=== PATIENT | female | born 1970 | race Caucasian/White ===

== ENCOUNTER 2024-04-29 15:00 | Outpatient (OUT) | payer BC, SELFPAY ==
--- NOTE | 2024-04-26 11:45 | VEINCLINIC_ITS ---
Vital Signs 04/29/24 15:14 Height 5 ft 7 in Weight 81.647 kg BMI 28.2 BP 123/65 BP Location Right Brachial BP Position Supine BP Cuff Size Adult BP Source Manual Cuff Respiration 16 Pulse 74 Pulse Source Monitor Pulse Oximetry (%) 98 Oxygen Delivery Method Room Air Comment The patient's blood pressure is elevated. Varicose Veins Patient is a 53 year old female in this day with c/o bilateral leg itching and muscle cramping which awakes her sleep. Patient states she was seen by Dr. Beltran approximately 4 years ago but was unable to have procedures at that time, but did initiate bilateral leg knee high compression stockings. Symptoms include bulging, itching, aching veins. 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 Patient has family history of varicose vein disease in her mom. Patient denies history of blood clots. thigh: bilateral (symptoms right > left leg), knee: bilateral, calf: bilateral, ankle: bilateral and michael: bilateral aching, burning and cramping 8 2 years Worsened in recent months: Yes standing and heavy lifting analgesics, elevating extremities and compression stockings Reports muscle spasms of leg, bruising and limb pain History of lower extremity trauma: No Superficial thrombophlebitis: No Family history of varicose veins: yes Has patient had previous lower extremity venous surgery: No Patient has previously received the following treatment(s) for lower extremity varicose veins: Reports none Does patient have a history of : yes Does patient intend to have future pregnancies: no Has patient had lower extremity venous scan with relux testing: Yes Results: 4 years ago Support hose used: Yes Problems walking or doing physical activity: Yes How does it affect you: often has to rest and elevate due to pain Do you walk much: Yes Do you stand much: Yes Review of Systems ROS Status of ROS 10 or more systems reviewed and unremark able except as noted in history and below Integumentary/Breast Reports: itching and changes in skin color Neurological Reports: weakness in extremities [facility] Medical History (Updated 04/29/24 @ 15:27 by Bijan Juarez) Bone spur ?M77.9 - Enthesopathy, unspecified (ICD-10) Disruption of anterior cruciate ligament of left knee ?S83.512A - Sprain of anterior cruciate ligament of left knee, initial encounter (ICD-10) Varicose veins of bilateral lower extremities with pain ?I83.813 - Varicose veins of bilateral lower extremities with pain (ICD-10) Hypertension ?I10 - Essential (primary) hypertension (ICD-10) Migraine ?G43.909 - Migraine, unspecified, not intractable, without status migrainosus (ICD-10) Surgical History (Updated 04/29/24 @ 15:27 by Bijan Juarez) H/O sinus surgery ?Z98.890 - Other specified postprocedural states (ICD-10) S/P reconstruction of ACL of left knee using bone-patellar tendon-bone autograft ?Z98.890 - Other specified postprocedural states (ICD-10) Family History (Updated 04/29/24 @ 15:27 by Bijan Juarez) Other Family history of cancer Family history of hypertension Varicose veins of bilateral lower extremities with pain Social History (Updated 04/29/24 @ 15:27 by Bijan Juarez) Within the past year, how often did you have a drink containing alcohol: 2-4 times a month Smoking status: Never smoker Non-prescribed substance use: cannabis (any form) Meds Home Medications and Allergies Home Medications ?Medication ?Instructions ?Recorded ?Confirmed ?Type atogepant 60 mg tablet (Qulipta) 60 mg PO DAILY 04/29/24 04/29/24 History baclofen 15 mg tablet 15 mg PO DAILY 04/29/24 04/29/24 History lamotrigine 200 mg tablet 100 mg PO BID 04/29/24 04/29/24 History (Lamictal) losartan 25 mg tablet (Cozaar) 25 mg PO DAILY 04/29/24 04/29/24 History oxcarbazepine 300 mg tablet 300 mg PO BID 04/29/24 04/29/24 History (Trileptal) semaglutide 1 mg/dose (4 mg/3 mL) 0.25 mg subcut QWEEK 04/29/24 04/29/24 History subcutaneous pen injector (Ozempic) ubrogepant 50 mg tablet (Ubrelvy) mg 04/29/24 History Allergies Allergy/AdvReac Type Severity Reaction Status Date / Time acetaminophen [From Vicodin] Allergy Intermediate Rash Verified 04/29/24 16:02 hydrocodone [From Vicodin] Allergy Intermediate Rash Verified 04/29/24 16:02 Penicillins Allergy Intermediate Rash Verified 04/29/24 16:02 Exam Constitutional Documenting provider has reviewed patient's vital signs: yes Common normals: oriented x3 Cardio Peripheral pulses: posterior tibial pulses present and dorsalis pedis pulses present Extremity Common normals: normal capillary refill General: calf tenderness and edema Right lower extremity: lower leg Right lower leg: inspection and palpation Left lower extremity: lower leg Left lower leg: inspection and palpation Neuro Common normals: oriented x3 Assessment and Plan Assessment and Plan (1) Varicose veins of bilateral lower extremities with pain:
--- NOTE | 2024-04-26 11:46 | W.VEIN ---
Discharge Plan Discharge Disposition: Home, Self-Care Outpatient Diagnostics: [facility] Facility EST Comprehensive (Routine) Timeframe: 2 Weeks Facility: [facility] - Location: Vein Center Ordered By: Eugene Aj VC EXT Venous Reflux AMY LMTD (Routine) Timeframe: 2 Weeks Facility: [facility] - Location: Vein Center Ordered By: Eugene Aj Follow Up Appointments: 05/09/2024 Print Language: Slovak Discharge Date/Time: 04/29/24 16:04
[2024-04-29 15:14] VITALS: BP 123/65; PULSE 74; O2SAT 98; BMI 28.2
== END 2024-04-29 16:04 | disposition home or self-care (01) ==
LOC: VC 15:02
PROVIDERS: PCP Radiology Diagnostic Radiology; Visit Provider Radiology Diagnostic Radiology
DX: I83.813 Varicose veins of bilateral lower extremities with pain (principal)

== ENCOUNTER 2024-05-09 12:55 | Outpatient (OUT) | payer BC, SELFPAY ==
--- NOTE | 2024-05-09 13:00 | VEIN_ITS ---
Patient Name: LUIS MANUEL BYERS MR#: [id number] : 1970 Exam Date: 05/09/2024 Ordering Doctor: DR EUGENE AJ M.D. RADIOLOGY REPORT PROCEDURE: [facility] - OFFICE VISIT INITIAL COMPARISON: None. PROGRESS NOTES: 53-year-old female who presents with a long history of lower extremity pain swelling and varicose veins. The patient complains of moderate leg pain itching and muscle cramping which wakens her from sleeping. The patient rates the pain as a 8 on a scale of 1-10. The patient was previously seen by Dr. Ward 4 years ago and was recommended to wear compression stockings which she has worn over the past 4 years. The patient had no treatment at that time. The patient does work on her feet and walks approximately 7 hours per day. Patient has a family history of varicose veins. The patient denies any signs and symptoms to suggest arterial ischemia. The patient drinks 2-4 drinks per month. No smoking history. No illicit drug use. Past medical history is significant for sinus surgery and ACL reconstruction on the left. Past medical history significant for bone spur, hypertension and migraine headaches. No current prescription medications. No history of deep venous thrombus or pulmonary embolus. See separate history and physical for medication list. No prior treatment for varicose or spider veins. Nursing notes were reviewed. After history and physical exam I discussed at length the pathophysiology of venous hypertension and possible treatments, therapies and strategies available. We discussed at length the importance of elevating the lower extremities above the level of the heart, increased physical activity and compression stocking use. We discussed conservative treatment with compression stockings. We discussed surgical interventions including ligation stripping and phlebectomy. We discussed intravenous laser ablation, micro foam chemical ablation and injection sclerotherapy at length. Risks benefits and alternatives were discussed. The patient's questions were answered Ultrasound venous reflux study performed the same day was discussed at length with the patient. The report demonstrates severe bilateral great, mild right and severe left small saphenous vein venous insufficiency with associated saphenofemoral/saphenopopliteal junction reflux and dilatation. PHYSICAL EXAM: The right leg demonstrates multiple large varicosities along the thigh knee and lower leg. Moderate scattered reticular and spider veins. Hemosiderin staining below the knee. Mild subcutaneous edema. No active ulceration The left leg demonstrates a few scattered varicose, moderate reticular and spider veins. No hemosiderin staining or subcutaneous edema. Both thighs, legs and feet were symmetrically warm to the touch. Good posterior tibial and dorsalis pedis pulses were present bilaterally. VEIN/[facility] Facility EST Comprehensive IMPRESSION: 1. Bilateral great saphenous, mild right and severe left small saphenous vein venous insufficiency with dilatation and saphenofemoral/saphenous popliteal junction reflux 2. Moderate right and mild left lower extremity incompetent varicose veins 3. Mild right lower extremity subcutaneous edema 4. No definite flow significant arterial disease 5. CEAP: C4a, Ep, As, Pr PLAN: 1. Endovenous laser ablation of the right great saphenous vein followed by left great saphenous vein followed by right small saphenous vein followed by left small saphenous vein 2. Micro foam chemical ablation bilateral incompetent varicose veins 3. Injection sclerotherapy bilateral reticular and spider veins 4. Long-term use of bilateral 20-30 mm near thigh-high compression stockings were deep vein reflux 5. Continued leg elevation and physical activity for symptomatic relief Nurse notes, history and physical were reviewed and confirmed, see attached forms. The nurse was present throughout the physical exam and consultation Dictated by: Eugene Aj MD on 05/09/2024 at 15:55 Approved by: Eugene Aj MD on 05/09/2024 at 16:09
--- NOTE | 2024-05-09 13:00 | VEIN_ITS ---
Patient Name: LUIS MANUEL BEYRS MR#: [id number] : 1970 Exam Date: 05/09/2024 Ordering Doctor: DR EUGENE AJ M.D. RADIOLOGY REPORT PROCEDURE: VC EXT VENOUS REFLUX AMY LMTD COMPARISON: None. INDICATIONS: I83.813 - Varicose veins of bilateral lower extremities with pain TECHNIQUE: Duplex imaging of the lower extremity to assess the deep and superficial venous system for the presence of deep or superficial venous incompetence and to document the location and severity of disease. The study includes evaluation of the great saphenous vein (GSV), anterior accessory saphenous vein (AASV) and small saphenous vein (SSV). Patient scanned in reverse Trendelenburg and standing. FINDINGS: RIGHT LOWER EXTREMITY: Saphenofemoral Junction Reflux: Yes 9.6mm 4.5 sec GSV: Diam (mm) Reflux/ Time (sec) Proximal Thigh 11.6 Yes 4.9 Mid Thigh 9.1 Yes 1.2 Distal Thigh 8.7 Yes 3.0 Prox Calf 5.5 Yes 0.5 Mid Calf 2.7 Yes 1.9 Saphenopopliteal Junction Reflux: 5.9mm Yes 0.7 SSV: Proximal Calf 5.5 Yes 0.7 Mid Calf 6.4 Yes 2.0 AASV: Not present Thrombi: No acute or chronic thromus. Compressibility: Normal. Flow: Moderate deep venous reflux. Preforator: Mid medial calf 5.2 mm with 2.8s reflux. Mid medial lower leg measures 4.0 mm with 1.5s reflux. Mid medial lower leg 3.7 mm with 3.2s reflux. Tech Note: Incompetent varicose vein proximal medial lower leg measures 4.9 mm with 3.3s reflux. Varicose vein proximal medial lower leg measures 5.7 mm with 4.3s reflux. LEFT LOWER EXTREMITY: Saphenofemoral Junction Reflux: Yes 6.1 mm 4.2 sec GSV: Diam (mm) Reflux/Time (sec) Proximal Thigh 5.8 Yes 1.3 Mid Thigh 4.0 Yes 3.5 Distal Thigh 4.9 Yes 4.3 Prox Calf 3.3 Yes 0.5 Mid Calf 2.2 Yes 0.4 Saphenopopliteal Junction Relux: 5.6 mm Yes 4.6 SSV: Proximal Calf 5.7 Yes 4.6 Mid Calf 4.8 Yes 0.3 AASV: Proximal Thigh 2.6 Yes 0.2 Mid Thigh 2.1 No Distal Thigh Thrombi: No acute or chroinc thrombus. Compressibility: Normal. Flow: Mild deep venous reflux. Autocad: Dist medial lower leg 3.5 mm with 4.6s reflux. Mid medial lower leg 2.8 mm with 1.1s reflux. Tech Note: Incompetent varicose vein proximal medial lower leg measures 4.9 mm with 4.6s reflux. Varicose vein distal medial thigh measures 4.7 mm with 4.8s reflux. CONCLUSION: 1. Severe bilateral great saphenous vein venous insufficiency with dilatation and saphenofemoral junction reflux, right greater than left 2. Mild right and severe left small saphenous vein venous insufficiency with dilatation and saphenopopliteal junction reflux 3. Moderate right and mild left deep vein reflux 4. Bilateral incompetent varicose veins Dictated by: Eugene Aj MD on 05/09/2024 at 14:02 Approved by: Eugene Aj MD on 05/09/2024 at 14:04
--- OUTSIDE RECORDS SUMMARY | 2024-05-09 13:04 | XMS_ITS | CCD ---
Author Organization [facility] ion Partnership [facility] Care Team Providers Care Commercial Horticulture Instructor Name Role Phone Nataprawira, Mariana Unavailable Unavailable Nataprawira, Mariana Unavailable Unavailable Nataprawira, Mariana Unavailable Unavailable No, Physician Primary Care Provider UnavailRaleigh Randolph Primary Care Provider No, Physician Primary Care Provider UnavailNIKKI Olivares Attending Unavailable SHONNA, PHYSICIAN Primary Care Unavailable NIKKI PEREZ Attending Unavailable SHONNA, PHYSICIAN Primary Care Unavailable NIKKI PEREZ Attending Unavailable SHONNA, PHYSICIAN Primary Care Unavailable DR ALONDRA CLEMENT V Consulting Unavailable URBANO, DR ALONDRA Brink Attending Unavailable DR ALONDRA CLEMENT V Admitting Unavailable Randa Billy Primary Care Physician [phone] Sara Green Primary Care Physician Unallocated, [place] Provider Primary Care Provider Sara Green Attending Unavailable GEENA HANSEN Admitting Unavailable GEENA HANSEN Attending Unavailable GEENA HANSEN Referring Unavailable Sara Green Attending Unavailable Sara Green Referring Unavailable Sara Green Admitting Unavailable Sara Green Attending Unavailable Sara Green Admitting Unavailable Alex Pena Attending Unavailable Sara Green Attending Unavailable Sara Green Attending Unavailable Sara Green Attending Unavailable Sara Green Attending Unavailable Sara Green Attending Unavailable Sara Green Attending Unavailable Sara Green Attending Unavailable Sara Green Attending Unavailable MIGUEL CAI Attending Unavailable MIGUEL CAI Attending Unavailable GEENA HANSEN Attending Unavailable GEENA HANSEN Attending Unavailable Aron Echevarria Attending Unavailable Allergies Allergy Classification Reported Allergen(s) Allergy Type Date of Onset Reaction(s) Facility Acetaminophen / HYDROcodone (3 sources) Acetaminophen / HYDROcodone; Translations: [HYDROCODONE-ACET AMINOPHEN] Drug Allergy 9 migraines for 2 weeks [facility] Comment on above: Can take Vicodin ES but not regular vicodin Penicillins (antibiotic) (4 sources) Penicillins; Translations: [PENICILLINS] Drug Allergy 3 Rash, Hives [facility] (20 sources) Acetaminophen / HYDROcodone; Translations: [acetaminophen-hy drocodone] Drug Allergy 9 Headache [facility] Comment on above: Can take Vicodin ES but not regular vicodin Can take Vicodin ES but not regular vicodin (20 sources) Penicillins; Translations: [penicillins] Propensity to adverse reactions to drug 3 Hives, Rash [facility] (2 sources) Penicillin G Drug Allergy 3 [facility] (3 sources) Acetaminophen / HYDROcodone; Translations: [Vicodin] Drug Allergy [facility] Repository Medications Current Medications Medication Drug Class(es) Dates Sig (Normalized) Sig (Original) 0.5 ML semaglutide 0.5 MG/ML Auto-Injector [Wegovy] (1 source) Start: 04-12-2024 inject 0.25 mg by subcutaneous injection every week Wegovy (0.25 mg dose) subcutaneous solution 0.25 mg, SubCutaneous, qWeek, # 4 EA, Refills(s) 0, Pharmacy: [id number], 171.5, cm, 04/12/24 10:56:00 EDT, Height/Length Dosing, 83.9, kg, 04/12/24 10:56:00 EDT, Weight Dosing Start Date: 04/12/24 Status: Ordered acetaminophen 500 mg oral tablet (13 sources) Start: 01-26-2023 take 1 tablet by mouth every six hours Tylenol Extra Strength 500 mg oral tablet 500 mg = 1 tab(s), Oral, q6hr, Refills(s) 0 Start Date: 01/26/23 Status: Ordered baclofen 20 mg oral tablet (20 sources) gamma-Aminobutyr ic Acid-ergic Agonist Start: 11-01-2019 take 1 tablet by mouth three times daily baclofen 20 mg Tab 20 mg = 1 tab(s), Oral, TID, Refills(s) 0 Start Date: 11/01/19 Status: Ordered Start: 11-01-2019 take 0.5 tablet by m outh once daily in the morning, then take 1.5 tablets by mouth at bedtime baclofen 20 mg Tab See Instructions, 0.5 tab PO qAM and qAfternoon and 1.5 tabs at bedtime, Refills(s) 0 Start Date: 11/01/19 Status: Ordered take 2 tablets by mo uth in the morning, then take 2 tablets by mouth in the evening, then take 2 tablets by mouth at bedtime baclofen (Lioresal) 10 MG tablet Take 20 mg by mouth in the morning and 20 mg in the evening and 20 mg before bedtime. 0 Active benzonatate 200 mg oral capsule (1 source) Non-narcotic Antitussive Start: 05-17-2022 End: 05-31-2022 take 1 capsule by mouth three times daily benzonatate 200 mg oral capsule 200 mg = 1 cap(s), Oral, TID, X 14 day(s), # 42 cap(s), Refills(s) 0, Pharmacy: [facility], 170, cm, 05/17/22 16:44:00 EDT, Height/Length Dosing, 90.1, kg, 05/17/22 16:44:00 EDT, Weight Dosing Start Date: 05/17/22 Stop Date: 05/31/22 Status: Ordered betamethasone 0.001 mg/mg topical ointment (4 sources) Corticosteroid Start: 08-17-2023 betamethasone Top valerate 0.1% Oint 1 codie, Topical, BID, 45 gram, Refill(s) 0, cover with tegaderm/ telfa to affected area, [facility], 171.5, cm, 08/17/23 13:03:00 EST, Height/Length Dosing, 89.1, kg, 08/17/23 13:03:00 EST, Weight Dosing Start Date: 08/17/23 Status: Ordered 12 hr buPROPion hydrochloride 150 mg extended release oral tablet (8 sources) Aminoketone Start: 03-01-2024 take 1 tablet by mouth twice daily Wellbutrin SR 150 mg Tab-ER 150 mg = 1 tab(s), Oral, BID, # 60 tab(s), Refills(s) 1, Pharmacy: [facility], 171.5, cm, 03/01/24 15:06:00 EDT, Height/Length Dosing, 84.5, kg, 03/01/24 15:06:00 EDT, Weight Dosing Start Date: 03/01/24 Status: Ordered Start: 01-31-2024 take 1 tablet by diana th once daily Wellbutrin SR 150 mg Tab-ER 150 mg = 1 tab(s), Oral, Daily, # 30 tab(s), Refills(s) 0, Pharmacy: [facility], 171.5, cm, 01/31/24 11:29:00 EDT, Height/Length Dosing, 84.6, kg, 01/31/24 11:29:00 EDT, Weight Dosing Start Date: 01/31/24 Status: Ordered Start: 08-17-2023 Wellbutrin SR 150 mg Tab-ER 150 mg = 1 tab(s), Oral, BID, once a day x 1 month then increased, # 180 tab(s), Refills(s) 0, Pharmacy: [facility], 171.5, cm, 08/17/23 13:03:00 EST, Height/Length Dosing, 89.1, kg, 08/17/23 13:03:00 EST, Weight Dosing Start Date: 08/17/23 Status: Ordered take 1 tablet by diana every twelve hours in the morning buPROPion SR (Wellbutrin SR) 150 MG 12 hr tablet Take 150 mg by mouth in the morning and 150 mg before bedtime. Do not crush, chew, or split.. 0 Active busPIRone hydrochloride 10 mg oral tablet (20 sources) Start: 11-01-2021 take 1 mg by mouth once daily busPIRone 10 mg Tab mg tab(s), Oral, Daily Start Date: 11/01/21 Status: Ordered Calcium (4 sources) Phosphate Binder, Calcium Start: 01-31-2024 take 1 tablet by mouth once daily calcium (as carbonate) 500 mg oral tablet 1 tab, Oral, Daily, Refills(s) 0 Start Date: 01/31/24 Status: Ordered cephalexin 500 mg oral capsule (3 sources) Cephalosporin Antibacterial Start: 06-08-2022 take 1 capsule by mouth every twelve hours Keflex 500 mg Cap 500 mg = 1 cap(s), Oral, q12hr, # 20 cap(s), Refills(s) 0, Pharmacy: [facility], 170, cm, 06/08/22 11:55:00 EDT, Height/Length Dosing, 88.8, kg, 06/08/22 11:55:00 EDT, Weight Dosing Start Date: 06/08/22 Status: Ordered clindamycin 300 mg oral capsule (1 source) Lincosamide Antibacterial Start: 01-13-2023 End: 01-20-2023 take 1 capsule by mouth every six hours clindamycin 300 mg oral cap 300 mg = 1 cap(s), Oral, q6hr, X 7 day(s), # 28 cap(s), Refills(s) 0, Pharmacy: [facility], 170, cm, 01/04/23 11:46:00 EDT, Height/Length Dosing, 87.5, kg, 01/04/23 11:46:00 EDT, Weight Dosing Start Date: 01/13/23 Stop Date: 01/20/23 Status: Ordered codeine phosphate 2 mg/ml / guaiFENesin 20 mg/ml oral solution (3 sources) Opioid Agonist Start: 05-26-2022 take 10 mL by mouth every six hours for cough and congestion codeine-guaifene sin 10 mg-100 mg/5 mL oral syrup 10 mL, Oral, q6hr for cough and congestion, 120 mL, Refill(s) 0, [facility], 170, cm, 05/17/22 16:44:00 EDT, Height/Length Dosing, 90.1, kg, 05/17/22 16:44:00 EDT, Weight Dosing Start Date: 05/26/22 Status: Ordered diazePAM 2 mg oral tablet (3 sources) Benzodiazepine Start: 12-27-2018 take 1 tablet by mouth twice daily diazePAM (Valium) 2 MG tablet Take 2 mg by mouth Take half a tablet to one tablet twice daily . 0 12/27/2018 Active doxycycline hyclate 100 mg oral tablet (2 sources) Tetracycline-class Drug Start: 12-23-2021 End: 12-30-2021 take 1 tablet by mouth every twelve hours at mealtime doxycycline hyclate 100 mg Tab 100 mg = 1 tab(s), Oral, q12hr, with fluids may take with food to minimize abdominal discomfort, X 7 day(s), # 14 tab(s), Refills(s) 0, Pharmacy: [email or web address], 170, cm, 12/23/21 16:48:00 EDT, Height/Length Dosing, 88, kg, 12/23/21 16:48... Start Date: 12/23/21 Stop Date: 12/30/21 Status: Ordered Fish Oils (4 sources) Start: 01-31-2024 take 1 tablet by mouth once daily [place]-3 Fish Oil 1 tab, Oral, Daily, Refills(s) 0 Start Date: 01/31/24 Status: Ordered fluticasone propionate 0.05 mg/actuat metered dose nasal spray (15 sources) Corticosteroid Start: 01-04-2023 Flonase 0.05 mg/inh [place] 2 spray(s), Nasal, Daily, 16 gram, Refill(s) 0, each nostril, [facility], 170, cm, 01/04/23 11:46:00 EDT, Height/Length Dosing, 87.5, kg, 01/04/23 11:46:00 EDT, Weight Dosing Start Date: 01/04/23 Status: Ordered Start: 05-17-2022 take 1 spray(s) nasa l route twice daily fluticasone 0.05 mg/inh Nasal [place] 1 spray(s), Nasal, BID, 16 gram, Refill(s) 0, each nostril, [facility], 170, cm, 05/17/22 16:44:00 EDT, Height/Length Dosing, 90.1, kg, 05/17/22 16:44:00 EDT, Weight Dosing Start Date: 05/17/22 Status: Ordered Start: 09-22-2021 take 1 spray(s) nasa l route twice daily fluticasone 0.05 mg/inh Nasal [place] 1 spray(s), Nasal, BID, 16 gram, Refill(s) 0, each nostril, [email or web address], 170, cm, 09/22/21 11:38:00 EST, Height/Length Dosing, 87.3, kg, 09/22/21 11:38:00 EST, Weight Dosing Start Date: 09/22/21 Status: Ordered fluticasone 0.05 mg/inh Nasal [place] (5 sources) Start: 05-17-2022 take 1 spray(s) nasal route twice daily fluticasone 0.05 mg/inh Nasal [place] 1 spray(s), Nasal, BID, 16 gram, Refill(s) 0, each nostril, [email or web address], 170, cm, 05/17/22 16:44:00 EDT, Height/Length Dosing, 90.1, kg, 05/17/22 16:44:00 EDT, Weight Dosing Start Date: 05/17/22 Status: Ordered Start: 09-22-2021 take 1 spray(s) nasa l route twice daily fluticasone 0.05 mg/inh Nasal [place] 1 spray(s), Nasal, BID, 16 gram, Refill(s) 0, each nostril, [email or web address], 170, cm, 09/22/21 11:38:00 EST, Height/Length Dosing, 87.3, kg, 09/22/21 11:38:00 EST, Weight Dosing Start Date: 09/22/21 Status: Ordered hydrOXYzine hydrochloride 25 mg oral tablet (17 sources) Antihistamine Start: 03-23-2022 hydrOXYzine hydrochloride 25 mg Tab 25 mg = 1 tab(s), Oral, As Directed, Refills(s) 0 Start Date: 03/23/22 Status: Ordered lamoTRIgine 200 mg oral tablet (20 sources) Mood Stabilizer, Anti-epileptic Agent Start: 05-15-2020 End: 02-22-2021 take 2 tablets by mouth once daily lamotrigine 200 mg Tab 400 mg = 2 tab(s), Oral, Daily, # 180 tab(s), Refills(s) 0, Pharmacy: [facility], 170, cm, 03/19/20 13:46:00 EDT, Height/Length Dosing, 76.5, kg, 03/19/20 13:46:00 EDT, Weight Dosing Start Date: 05/15/20 Status: Ordered take 1 tablet by mouth once emily y lamoTRIgine (LaMICtal) 200 MG tablet Take 200 mg by mouth 1 (one) time each day at the same time. 0 Active losartan potassium 50 mg oral tablet (20 sources) Angiotensin 2 Receptor Rudy Start: 02-07-2024 take 1 tablet by mouth twice daily losartan 50 mg Tab 50 mg = 1 tab(s), Oral, BID, # 180 tab(s), Refills(s) 3, Pharmacy: [facility], 171.5, cm, 01/31/24 11:29:00 EDT, Height/Length Dosing, 84.6, kg, 01/31/24 11:29:00 EDT, Weight Dosing Start Date: 02/07/24 Status: Ordered Start: 10-06-2023 take 1 tablet by diana th twice daily losartan 50 mg Tab 50 mg = 1 tab(s), Oral, BID, # 180 tab(s), Refills(s) 0, Pharmacy: [facility], 171.5, cm, 08/31/23 13:49:00 EST, Height/Length Dosing, 86.3, kg, 08/31/23 13:49:00 EST, Weight Dosing Start Date: 10/06/23 Status: Ordered Start: 07-18-2023 take 1 tablet by diana th once daily losartan 25 mg Tab 25 mg = 1 tab(s), Oral, Daily, # 90 tab(s), Refills(s) 0, Pharmacy: [facility], 171.5, cm, 01/26/23 12:01:00 EDT, Height/Length Dosing, 86.8, kg, 01/26/23 12:01:00 EDT, Weight Dosing Start Date: 07/18/23 Status: Ordered Start: 03-05-2020 End: 03-18-2023 take 1 tablet by mouth once daily losartan 25 mg Tab 25 mg = 1 tab(s), Oral, Daily, # 90 tab(s), Refills(s) 3, Pharmacy: [facility], 170, cm, 05/17/22 16:44:00 EDT, Height/Length Dosing, 90.1, kg, 05/17/22 16:44:00 EDT, Weight Dosing Start Date: 06/01/22 Status: Ordered lurasidone hydrochloride 40 mg oral tablet (20 sources) Atypical Antipsychotic Start: 05-15-2020 End: 02-22-2021 take 1 tablet by mouth once daily at mealtime Latuda 40 mg oral tablet 40 mg = 1 tab(s), Oral, Daily, with food @ supper, # 90 tab(s), Refills(s) 1, Pharmacy: [facility], 170, cm, 03/19/20 13:46:00 EDT, Height/Length Dosing, 76.5, kg, 03/19/20 13:46:00 EDT, Weight Dosing Start Date: 05/15/20 Status: Ordered methylPREDNISolone 4 mg oral tablet (2 sources) Corticosteroid Start: 03-01-2024 End: 03-07-2024 Medrol 4 mg Tab = 1 packet(s), Oral, As Directed, as directed on package labeling, X 6 day(s), # 21 tab(s), Refills(s) 0, Pharmacy: [facility], 171.5, cm, 03/01/24 15:06:00 EDT, Height/Length Dosing, 84.5, kg, 03/01/24 15:06:00 EDT, Weight Dosing Start Date: 03/01/24 Stop Date: 03/07/24 Status: Ordered Start: 01-31-2024 End: 02-06-2024 Medrol 4 mg Tab = 1 packet(s ), Oral, As Directed, as directed on package labeling, X 6 day(s), # 21 tab(s), Refills(s) 0, Pharmacy: [facility], 171.5, cm, 01/31/24 11:29:00 EDT, Height/Length Dosing, 84.6, kg, 01/31/24 11:29:00 EDT, Weight Dosing Start Date: 01/31/24 Stop Date: 02/06/24 Status: Ordered Multi Vitamin+ (4 sources) Start: 01-31-2024 take 1 tablet by mouth once daily Multi Vitamin+ 1 tablet, Oral, Daily, Refill(s) 0 Start Date: 01/31/24 Status: Ordered Naltrexone (1 source) Opioid Antagonist Start: 01-31-2024 take 2 capsules by mouth once daily naltrexone 4.5 mg oral capsule = 2 cap(s), Oral, Daily, # 60 cap(s), Refills(s) 0, Pharmacy: [facility], 171.5, cm, 01/31/24 11:29:00 EDT, Height/Length Dosing, 84.6, kg, 01/31/24 11:29:00 EDT, Weight Dosing Start Date: 01/31/24 Status: Ordered naproxen 500 mg oral tablet (17 sources) Nonsteroidal Anti-inflammatory Drug Start: 01-31-2024 naproxen 500 mg Tab 500 mg = 1 tab(s), Oral, BID, take 14 days BID ., # 60 tab(s), Refills(s) 0, Pharmacy: [facility], 171.5, cm, 01/31/24 11:29:00 EDT, Height/Length Dosing, 84.6, kg, 01/31/24 11:29:00 EDT, Weight Dosing Start Date: 01/31/24 Status: Ordered Start: 01-26-2023 take 1 tablet by diana th every eight hours naproxen sodium 220 mg Tab 220 mg = 1 tab(s), Oral, q8hr, Refills(s) 0 Start Date: 01/26/23 Status: Ordered Start: 10-04-2021 take 1 tablet by diana th twice daily naproxen 500 mg Tab 500 mg = 1 tab(s), Oral, BID, Take one tab by mouth two times a day, # 14 tab(s), Refills(s) 0, Pharmacy: [facility], 170, cm, 09/22/21 11:38:00 EST, Height/Length Dosing, 82, kg, 10/04/21 11:38:00 EST, Weight Dosing Start Date: 10/04/21 Status: Ordered take 1 capsule by mo uth in the morning Naproxen Sodium 220 MG capsule Take 1 capsule by mouth in the morning. 0 Active ondansetron 4 mg oral tablet (1 source) Serotonin-3 Receptor Antagonist Start: 04-12-2024 take 1 tablet by mouth every six hours as needed for nausea Zofran 4 mg Tab 4 mg = 1 tab(s), Oral, q6hr, PRN Nausea, # 30 tab(s), Refills(s) 0, Pharmacy: [facility], 171.5, cm, 04/12/24 10:56:00 EDT, Height/Length Dosing, 83.9, kg, 04/12/24 10:56:00 EDT, Weight Dosing Start Date: 04/12/24 Status: Ordered OXcarbazepine 300 mg oral tablet (20 sources) Anti-epileptic Agent Start: 02-14-2020 OXcarbazepine (TrileptaL) 300 MG tablet Take 450 mg by mouth nightly . 0 02/14/2020 Active Start: 02-14-2020 take 1.5 tablets by mouth at bedtime Trileptal 300 mg Tab See Instructions, 1.5 tab(s) Oral Bedtime, Refills(s) 0 Start Date: 02/14/20 Status: Ordered take 1 tablet by diana th in the morning OXcarbazepine (Trileptal) 300 MG tablet Take 300 mg by mouth in the morning and 300 mg before bedtime. 0 Active predniSONE 10 mg oral tablet (3 sources) Start: 08-31-2023 predniSONE 10 mg Tab = 1 -, Oral, As Directed, Take 3 tabs by mouth daily x5 days, then 2 tabs daily x5 days, then 1 tab daily x5 days., # 30 tab(s), Refills(s) 0, Pharmacy: [facility], 171.5, cm, 08/31/23 13:49:00 EST, Height/Length Dosing, 86.3, kg, 08/31/23 13:49:00 EST, Weight Dosing Start Date: 08/31/23 Status: Ordered rimegepant 75 mg disintegrating oral tablet (12 sources) Start: 01-04-2023 Nurtec ODT 75 mg oral tablet, disintegrating Refills(s) 0 Start Date: 01/04/23 Status: Ordered Rimegepant Sulfate (NURTEC PO) (1 source) Rimegepant Sulfa te (NURTEC PO) Take by mouth 0 Active suvorexant 20 mg oral tablet (20 sources) Orexin Receptor Antagonist Start: 05-15-2020 End: 02-22-2021 take 1 tablet by mouth once daily at bedtime Belsomra 20 mg oral tablet 20 mg = 1 tab(s), Oral, Once a day (at bedtime), g47.0, # 90 tab(s), Refills(s) 1, Pharmacy: [facility] 170, cm, 03/19/20 13:46:00 EDT, Height/Length Dosing, 76.5, kg, 03/19/20 13:46:00 EDT, Weight Dosing Start Date: 05/15/20 Status: Ordered ubrogepant 50 mg oral tablet (9 sources) Start: 05-15-2020 Ubrelvy 50 mg oral tablet See Instructions, 1 tab(s) Oral, Refills(s) 0 Start Date: 05/15/20 Status: Ordered ubrogepant 50 mg Tab (2 sources) Start: 05-15-2020 ubrogepant 50 mg Tab 50 mg . 0 05/15/2020 Active Completed/Discontinued Medications Medication Drug Class(es) Dates Sig (Normalized) Sig (Original) ALPRAZolam 1 mg oral tablet (1 source) Benzodiazepine Start: 10-31-2012 End: 01-07-2013 take 1 tablet by mouth twice daily ALPRAZolam (XANAX) 1 mg tablet Take 1 tablet by mouth twice daily. 0 10/31/2012 01/07/2013 Discontinued (Discontinued by Patient) Comment on above: Take 1 tablet by diana th twice daily. LORazepam 1 mg oral tablet (1 source) Benzodiazepine Start: 10-31-2012 End: 01-07-2013 take 1 tablet by mouth every twenty-four hours as needed LORazepam (ATIVAN) 1 mg tablet Take 1 tablet by mouth at bedtime as needed. 0 10/31/2012 01/07/2013 Discontinued (Discontinued by Patient) Comment on above: Take 1 tablet by diana th at bedtime as needed. Medi compression stockings knee high 20-30mmHg compression (8 sources) Start: 09-22-2021 Medi compression stockings knee high 20-30mmHg compression Medi compression stockings knee high 20-30mmHg compression, See Instructions, 2 EA, 0, Wear bilat lower legs daily, Dx: I83.813, Supply Start Date: 09/22/21 Status: Ordered mirtazapine 15 mg oral tablet (1 source) Start: 12-19-2012 End: 02-27-2013 take 0.5 tablet by mouth once daily, then take 1 tablet by mouth once daily mirtazapine 15 mg tablet Take 1/2 tablet PO daily for two weeks, then increase to 1 tablet PO daily. 30 tablet 2 12/19/2012 02/27/2013 Discontinued Comment on above: Take 1/2 tablet PO d aily for two weeks, then increase to 1 tablet PO daily. 24 hr propranolol hydrochloride 60 mg extended release oral capsule (1 source) beta-Adrenergic Rudy Start: 10-31-2012 End: 10-11-2013 take 1 capsule by mouth once daily propranolol LA (INDERAL LA) 60 mg 24 hr capsule Take 1 capsule by mouth once daily. 0 10/31/2012 10/11/2013 Discontinued (Erroneous entry) Comment on above: Take 1 capsule by mo ut once daily. Problems Active Problems Problem Classification Problem Date Documented Date Episodic/Chronic Acquired foot deformities (20 sources) Acquired hallux rigidus; Translations: [Hallux rigidus, unspecified foot] Onset: 02-12-2023 Resolved: 02-12-2023 10-18-2013 Chronic Comment on above: RIGHT FOOT RIGHT FOOT Administrative/social admission (5 sources) Counseling procedure with explicit context; Translations: [Dietary counseling and surveillance] Onset: 08-17-2023 Episodic Allergic reactions (9 sources) Allergic disposition; Translations: [Other allergy, initial encounter] Onset: 08-17-2023 Episodic Anxiety disorders (20 sources) Anxiety; Translations: [Posttraumatic stress disorder] Onset: 07-28-2023 05-26-2014 Chronic Chronic obstructive pulmonary disease and bronchiectasis (7 sources) Bronchitis 08-31-2023 Episodic Disorders of lipid metabolism (2 sources) Hyperlipidemia; Translations: [Hyperlipidemia, unspecified] Onset: 04-12-2024 Chronic Essential hypertension (20 sources) Essential hypertension; Translations: [Essential (primary) hypertension] Onset: 11-01-2021 Chronic Headache; including migraine (20 sources) Migraine; Translations: [Migraine, unspecified, not intractable, without status migrainosus] Onset: 12-13-2012 12-13-2012 Chronic Malaise and fatigue (8 sources) Fatigue; Translations: [Other fatigue] Onset: 07-28-2023 01-17-2023 Episodic Miscellaneous mental health disorders (20 sources) Insomnia disorder related to another mental disorder; Translations: [Insomnia due to other mental disorder] Onset: 08-21-2020 08-21-2020 Chronic Mood disorders (20 sources) Mixed bipolar affective disorder, in full remission; Translations: [Bipolar disorder, in full remission, most recent episode mixed] Onset: 08-21-2020 08-21-2020 Chronic Nausea and vomiting (2 sources) Nausea; Translations: [Nausea] Onset: 04-12-2024 Episodic Other circulatory disease (20 sources) Raynaud's disease 05-26-2014 Chronic Other connective tissue disease (1 source) Pain of toe of left foot; Translations: [Pain in left toe(s)] 09-12-2023 Episodic Other connective tissue disease (2 sources) Disorder of soft tissue; Translations: [Other specified soft tissue disorders] Onset: 01-31-2024 Episodic Other connective tissue disease (1 source) Enthesopathy; Translations: [Other enthesopathies, not elsewhere classified] Onset: 03-01-2024 Episodic Other connective tissue disease (3 sources) Tendinitis of right elbow 03-01-2024 Episodic Other lower respiratory disease (20 sources) Dyspnea on exertion; Translations: [Shortness of breath] Onset: 07-28-2023 05-06-2021 Episodic Other nervous system disorders (2 sources) Paresthesia; Translations: [Paresthesia of skin] Onset: 01-31-2024 Episodic Other nervous system disorders (4 sources) Paresthesia of hand 01-31-2024 Episodic Other nutritional; endocrine; and metabolic disorders (7 sources) Obese class I; Translations: [Body mass index (BMI) 30.0-30.9, adult] Onset: 11-01-2021 Chronic Other nutritional; endocrine; and metabolic disorders (3 sources) Body mass index 30+ - obesity; Translations: [Body mass index (BMI) 30.0-30.9, adult] Onset: 07-28-2023 09-22-2021 Chronic Other nutritional; endocrine; and metabolic disorders (20 sources) Obesity; Translations: [Obesity, unspecified] Onset: 12-23-2021 09-22-2021 Chronic Other nutritional; endocrine; and metabolic disorders (2 sources) Obesity caused by energy imbalance; Translations: [Other obesity due to excess calories] Onset: 07-28-2023 07-28-2023 Chronic Other nutritional; endocrine; and metabolic disorders (20 sources) Body mass index 25-29 - overweight 09-17-2020 Episodic Other nutritional; endocrine; and metabolic disorders (14 sources) Overweight; Translations: [Overweight] Onset: 08-02-2023 09-17-2020 Episodic Other nutritional; endocrine; and metabolic disorders (20 sources) Overweight in adulthood with body mass index of 25 or more but less than 30; Translations: [Body mass index (BMI) 29.0-29.9, adult] Onset: 08-02-2023 09-17-2020 Episodic Other screening for suspected conditions (not mental disorders or infectious disease) (2 sources) Encounter for screening mammogram for malignant neoplasm of breast; Translations: [Screening for malignant neoplasm done] Onset: 03-23-2022 Episodic Other skin disorders (4 sources) Swelling of hand 01-31-2024 Episodic Other upper respiratory disease (14 sources) Seasonal allergy; Translations: [Other seasonal allergic rhinitis] Onset: 02-12-2023 01-17-2023 Chronic Other upper respiratory infections (15 sources) Sinusitis; Translations: [Chronic sinusitis] Onset: 12-23-2021 12-23-2021 Chronic Otitis media and related conditions (14 sources) Finding of fluid behind tympanic membrane; Translations: [Unspecified nonsuppurative otitis media, bilateral] Onset: 07-28-2023 01-17-2023 Episodic Residual codes; unclassified (5 sources) Patient encounter status; Translations: [Other specified health status] Onset: 11-01-2021 Episodic Residual codes; unclassified (20 sources) Initial insomnia 09-07-2019 Episodic Screening and history of mental health and substance abuse codes (3 sources) H/O: Disorder; Translations: [Personal history of nicotine dependence] Onset: 03-23-2022 Episodic Spondylosis; intervertebral disc disorders; other back problems (20 sources) Disorder of lumbar disc; Translations: [Other intervertebral disc degeneration, lumbar region] Onset: 02-12-2023 Resolved: 02-12-2023 06-18-2020 Chronic Spondylosis; intervertebral disc disorders; other back problems (9 sources) Low back pain; Translations: [Low back pain] Onset: 02-12-2023 Resolved: 02-12-2023 02-12-2023 Episodic Superficial injury; contusion (1 source) Contusion of left lesser toe; Translations: [Contusion of left lesser toe(s) without damage to nail, initial encounter] 09-12-2023 Episodic Thyroid disorders (20 sources) Central hypothyroidism; 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] Onset: 03-23-2022 09-07-2019 Chronic Unclassified (20 sources) Patient encounter status 09-17-2020 Varicose veins of lower extremity (20 sources) Varicose veins of lower extremity with inflammation 05-06-2021 Episodic Viral infection (2 sources) Verruca plantaris; Translations: [Plantar wart] 09-12-2023 Episodic Past or Other Problems Problem Classification Problem Date Documented Date Episodic/Chronic Conditions associated with dizziness or vertigo (3 sources) Dizziness; Translations: [Dizziness and giddiness] Onset: 11-08-2012 11-08-2012 Episodic Menstrual disorders (2 sources) Irregular periods; Translations: [Irregular menstruation, unspecified] Onset: 02-12-2023 Resolved: 02-12-2023 02-12-2023 Chronic Osteoarthritis (4 sources) Osteoarthritis of foot joint; Translations: [Primary osteoarthritis, unspecified ankle and foot] Onset: 02-12-2023 Resolved: 02-12-2023 02-12-2023 Chronic Other congenital anomalies (2 sources) Congenital deformity of toe; Translations: [Congenital deformity of feet, unspecified, unspecified foot] Onset: 02-12-2023 Resolved: 02-12-2023 02-12-2023 Chronic Other congenital anomalies (2 sources) Congenital valgus deformity of foot; 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] Onset: 02-12-2023 Resolved: 02-12-2023 02-12-2023 Chronic Other ear and sense organ disorders (7 sources) Pain of ear structure; Translations: [Otalgia, unspecified ear] Onset: 02-12-2023 01-17-2023 Episodic Sprains and strains (2 sources) Sprain of cruciate ligament of knee; Translations: [Sprain of unspecified cruciate ligament of unspecified knee, initial encounter] Onset: 02-12-2023 Resolved: 02-12-2023 02-12-2023 Episodic Syncope (3 sources) Near syncope; Translations: [Syncope and collapse] Onset: 11-08-2012 11-08-2012 Episodic Unclassified (20 sources) Body mass index 20-24 - normal 03-05-2020 Unclassified (20 sources) Strain of fascia of lower back 09-17-2020 Results Test Name Value Interpretation Reference Range Facility EMS Documentationon 04-27-20 EMS Documentation Report Please click on link to see report Normal [facility] Comment on above: Result Comment: Miss ing Attachment - total size limit for all attachments exceeded [id number] Can be viewed in source system CT Abdomen/Pelvis w/ Contras ton 04-23-2024 CT Abdomen/Pelvis w/ Contrast Exam Date/Time: 04/22/2024 20:30 EDT Reason for Exam: ABDOMINAL PAIN, ACUTE, NONLOCALIZED;Other (please specify) Report IMPRESSION: NO ACUTE FINDINGS. History: ABDOMINAL PAIN, ACUTE, NONLOCALIZED. Technical Factors: CT imaging of the abdomen and pelvis were obtained and formatted as 5 mm contiguous axial images from the domes of the diaphragm to the symphysis pubis. Sagittal and coronal reconstructions were also obtained. Oral contrast medium: None. Intravenous contrast medium: Isovue-300, 100 mL. Comparison: None Findings: Chest: Lung bases clear. Cardiac size normal. No pericardial effusion. No coronary artery calcification. Liver: Normal in size, and shape. Multiple cystic areas right and left hepatic lobes. Bile Ducts: Normal in caliber. Gallbladder: Not visualized. Pancreas: Normal without masses, cysts, ductal dilatation or calcification. Spleen: Normal in size without masses. 1.2 cm calcification superior aspect of spleen.. No splenules. Kidneys: Normal in size and enhancement. No hydronephrosis, masses, or stones. Adrenals: Normal. Small bowel: Normal in caliber. Appendix: Normal. Colon: Normal in caliber. Peritoneum: No ascites, free air, or fluid collections. Report Vessels: Aorta normal in course and caliber. Portal vein, splenic vein, superior mesenteric vein are patent. Lymph nodes: Retroperitoneal: No enlarged retroperitoneal lymph nodes. Mesenteric: No enlarged mesenteric lymph nodes. Pelvic: No enlarged pelvic lymph nodes. Ureters: Normal in course and caliber. No calcifications. Bladder: No wall thickening. Reproductive organs: No pelvic masses. Abdominal Wall: No hernia identified. No diastasis of rectus musculature. No edema or masses. Bones: No bone lesions. No degenerative changes. No post operative changes. All CT scans at this facility use dose modulation, iterative reconstruction, and/or weight based dosing when appropriate to reduce radiation dose to as low as reasonably achievable. Ordering Provider: Gayle Escalante FINAL REPORT Dictated: 04/23/2024 9:23 am Duane Vazquez MD Signed (Electronic Signature): 04/23/2024 9:23 am Signed by: Duane Vazquez MD Transcribed by: NOREEN Technologist: ERICK Technical Comments GFR (mL/min/1/73m2) 104 Contrast: Isovue 300 Contrast amount in ml's: 100 Rectal Contrast Given? No Normal [facility] ED Note-Physicianon 04-23-20 ED Note-Physician ED Note-Physician Basic Information Time Seen: Gayle Escalante PA-C 04/22/2024 18:58 Chief Complaint Pt arrived via [facility] after having an episode of abdominal pain. Since arrival pt states pain has subsided. Pt denies any nausea or vomiting. History of Present Illness This patient presents emergency department chief complaint of abdominal pain. She states this came on suddenly after eating a peanut butter and jelly sandwich. She states she thought the chili tasted funny, so she did not complete eating the entire sandwich. She did get nauseated but did not vomit. She denies any fevers chills or sweats. She denies any difficulty breathing or chest pain. She denies any pain currently. She denies any urine burning frequency or urgency. She denies any constipation or diarrhea. She has never had any abdominal surgeries. Review of Systems Constitutional: Denies weight loss, fevers, chills, sweats, malaise Eyes: Denies visual changes, eye pain, double vision, scotomas, floaters ENT: Denies runny nose, epistaxis, sinus pain, ear pain, ringing in ears, tooth ache, sore throat, pain with swallowing Cardiovascular: Denies chest pain, shortness of breath, orthopnea, edema, palpitations, loss of consciousness, claudication Respiratory: Denies cough, sputum production, wheezing, hemoptysis, shortness of breath, dyspnea on exertion Gastrointestinal: Denies unintentional weight loss, difficulty swallowing, indigestion, bloating, cramping, loss of appetite, vomiting, diarrhea, constipation, hematochezia, melena. + Genitourinary: Denies any incontinence of urine, dysuria, hematuria, nocturia, polyuria, hesitancy, frequency, urgency, burning Musculoskeletal: Denies joint pain, morning stiffness, joint swelling, decreased range of motion, crepitus Integumentary: Denies any pruritus, rashes, lesions, wounds, petechiae Neurologic: Denies any changes in sight, smell, hearing, taste, seizures, headache, paresthesia, numbness, weakness, balance disturbance Psychiatric denies any depression, change in sleep patterns, anxiety, difficulty concentrating, paranoia, anhedonia, lack of energy, bladimir Hematologic/lymphatic: Denies any purpura, petechiae, excessive bleeding, bruising Physical Exam Vitals & Measurements T: 36.9 ?C(Oral) HR: 70(Monitored) RR: 14 BP: 147/84 SpO2: 97% HT: 171.5 cm WT: 83.9 kg BMI: 28.53 Vital signs and nursing notes reviewed. General: Awake, alert, NAD. HEENT: Head is normocephalic, atraumatic. PERRL. EOMI. Sclerae are anicteric. External ears are normal. TMs are intact bilaterally. Canals are clear bilaterally. Nares are patent bilaterally. Oral mucosa is pink and moist. No lesions noted. Tongue protrudes in midline. Uvula rises with phonation. Neck is supple, no no palpable adenopathy. No JVD. Trachea is midline. Thorax: Symmetrical rise and fall Lungs: Clear to auscultation throughout all sanchez, no wheezes, no crackles Heart: Regular rate and rhythm. No murmur, gallop, or rub Abdomen: Mild diffuse tenderness on palpation epigastric area, left lower quadrant.. Bowel sounds are present active and normal. No organomegaly. No palpable masses. No CVA tenderness. Extremities: Motor sensory pulses intact x4 extremities. No lower extremity edema. Skin: No lesions, rashes, ulcerations. No bruising or petechiae. Color appropriate, warm and dry Neuro: No oriented x3, no focal neuro deficits Psych: Mood and affect are normal Medical Decision Making MEDICAL DECISION MAKING Number and Complexity of Problems Differential Diagnosis: Cholecystitis, appendicitis, pancreatitis, diverticulitis, dehydration, electrolyte imbalance, viral illness, food poisoning MDM Data External documents reviewed: Not applicable My EKG interpretation: Noted in chart if applicable My CT interpretation: Noted in chart if applicable My X-ray interpretation: Noted in chart if applicable My Ultrasound interpretation: Not applicable Decision rules/scores evaluated: Noted in chart if applicable Discussed with: Not applicable Treatment and Disposition ED Course: Patient was interviewed and examined. The appropriate ER workup was initiated. Patient is given IV fluid normal saline rehydration. White blood count 10.0, hemoglobin 13.2, hematocrit 37.2, platelets 237. Pro time 11.1, INR 0.99, PTT 30.7. Sodium 136, potassium 3.4, chloride 103, CO2 24, BUN 15, creatinine 0.7, glucose 118, calcium 9.9, alk phos mildly elevated at 103, remainder CMP unremarkable. Lipase mildly elevated at 187. Lactic acid normal at 1.6. 0-hour troponin 2.80, 1 hour delta Trope 2.70. UA remarkable for 2+ blood, 4-20 RBCs, urine beta-hCG negative. CT scan of the abdomen pelvis with contrast was unremarkable for any acute findings. I discussed the results of the workup with the patient. I discussed with her my recommendation to discard the jar of bismark. I discussed with her we will send her home with a ondansetron ODT in case she has nausea later tonight. I will also send a prescr (more content not included)... Normal [facility] Comment on above: Result Comment: Elec tronically Signed By: Gayle Escalante PA-C\.br\Date and Time Signed: 04/22/24 23:31 EDT\.br\Electronically Co-Signed By: Aron Echevarria DO.br\Date and Time Co-Signed: 04/23/24 00:00 EDT BMPon 04-22-2024 Anion gap [Moles/Vol] 12 mmol/L Normal 6-16 [facility] Comment on above: Performed By: #### 2 [id number] #### [facility] [address] [place] [address] Calcium [Mass/Vol] 9.9 mg/dL Normal 8.9-11.1 [facility] Comment on above: Performed By: #### 2 [id number] #### [facility] [address] [place] [address] Chloride [Moles/Vol] 103 mmol/L Normal 101-111 [facility] Comment on above: Performed By: #### 2 [id number] #### [facility] [address] [place] [address] CO2 [Moles/Vol] 24 mmol/L Normal 21-31 [facility] Comment on above: Performed By: #### 2 [id number] #### [facility] [address] [place] [address] Creatinine [Mass/Vol] 0.7 mg/dL Normal 0.5-1.3 [facility] Comment on above: Performed By: #### 2 [id number] #### [facility] [address] [place] [address] Glucose [Mass/Vol] 118 mg/dL Normal 55-199 [facility] Comment on above: Performed By: #### 2 [id number] #### [facility] [address] [place] [address] Potassium [Moles/Vol] 3.4 mmol/L Low 3.5-5.3 [facility] Comment on above: Performed By: #### 2 [id number] #### [facility] [address] [place] [address] Sodium [Moles/Vol] 136 mmol/L Normal 135-145 [facility] Comment on above: Performed By: #### 2 [id number] #### [facility] [address] [place] [address] Urea nitrogen [Mass/Vol] 15 mg/dL Normal 5-21 [facility] Comment on above: Performed By: #### 2 [id number] #### [facility] [address] [place] [address] Urea nitrogen/Creatinine [Mass ratio] 21 No Units High 10-20 [facility] Comment on above: Performed By: #### 2 [id number] #### [facility] [address] [place] [address] CBC w/ Auto Diffon 4 Basophils/100 WBC (Bld) 0.4 % Normal 0.0-2.0 [facility] Comment on above: Performed By: #### 2 [id number] #### [facility] [address] [place] [address] Basophils/Leukocytes Auto (Bld) [Pure # fraction] 0.0 E9/L Normal 0.0-0.2 [facility] Comment on above: Performed By: #### 2 [id number] #### [facility] [address] [place] [address] Eosinophils (Bld) [#/Vol] 0.1 E9/L Normal 0.0-0.5 [facility] Comment on above: Performed By: #### 2 [id number] #### [facility] [address] [place] [address] Eosinophils/100 WBC (Bld) 0.8 % Normal 0.0-8.0 [facility] Comment on above: Performed By: #### 2 [id number] #### [facility] [address] [place] [address] Erythrocyte distribution width (RBC) [Ratio] 13.0 % Normal 10.9-14.2 [facility] Comment on above: Performed By: #### 2 [id number] #### [facility] [address] [place] [address] Hematocrit (Bld) [Volume fraction] 37.2 % Normal 34.0-46.0 [facility] Comment on above: Performed By: #### 2 [id number] #### [facility] [address] [place] [address] Hemoglobin (Bld) [Mass/Vol] 13.2 g/dL Normal 12.0-16.0 [facility] Comment on above: Performed By: #### 2 [id number] #### [facility] [address] [place] [address] Lymphocytes (Bld) [#/Vol] 1.6 E9/L Normal 1.0-4.0 [facility] Comment on above: Performed By: #### 2 [id number] #### [facility] [address] [place] [address] Lymphocytes/100 WBC (Bld) 15.8 % Normal 14.0-50.0 [facility] Comment on above: Performed By: #### 2 [id number] #### [facility] [address] [place] [address] MCH (RBC) [Entitic mass] 33.2 pg Normal 27.0-34.0 [facility] Comment on above: Performed By: #### 2 [id number] #### [facility] [address] [place] [address] MCHC (RBC) [Mass/Vol] 35.6 g/dL Normal 31.4-36.0 [facility] Comment on above: Performed By: #### 2 [id number] #### [facility] [address] [place] [address] MCV (RBC) [Entitic vol] 93.3 fL Normal 80.0-100.0 [facility] Comment on above: Performed By: #### 2 [id number] #### [facility] [address] [place] [address] Monocytes (Bld) [#/Vol] 0.8 E9/L Normal 0.2-1.0 [facility] Comment on above: Performed By: #### 2 [id number] #### [facility] [address] [place] [address] Neutrophils (Bld) [#/Vol] 7.5 E9/L Normal 2.0-7.5 [facility] Comment on above: Performed By: #### 2 [id number] #### [facility] [address] [place] [address] Neutrophils/100 WBC (Bld) 74.8 % Normal 36.0-75.0 [facility] Comment on above: Performed By: #### 2 [id number] #### [facility] [address] [place] [address] Platelet mean volume (Bld) [Entitic vol] 7.3 fL Normal 6.4-10.8 [facility] Comment on above: Performed By: #### 2 135704 #### [facility] [address] [place] [address] Platelets (Bld) [#/Vol] 237.0 E9/L Normal 150.0-500.0 [facility] Comment on above: Performed By: #### 2 [id number] #### [facility] [address] [place] [address] RBC (Bld) [#/Vol] 4.0 E12/L Low 4.3-5.9 [facility] Comment on above: Performed By: #### 2 [id number] #### [facility] [address] [place] [address] WBC corrected for nucl RBC Auto (Bld) [#/Vol] 10.0 E9/L Normal 4.0-11.0 [facility] Comment on above: Performed By: #### 2 [id number] #### [facility] [address] [place], [place] [id number] ED Clinical Summaryon 2023 ED Clinical Summary ED Clinical Summary [address] [address] ED Clinical Summary Person Information Name: SAVANAH BYERS [facility] Age: 53 Years : 1970 Sex: Female Language: Canadian PCP: Sara Flood Marital Status: Visit Id: Visit Reason: Abdominal pain; RIB PAIN Speciality: Acuity: 3 Enc Type: Emergency Med Service: Emergency Arrival: 04/22/2024 18:34:34 Discharge: 04/22/2024 22:57:04 LOS: 000 04:23 Checkin: 04/22/2024 18:34:34 Checkout: 04/22/2024 22:57:04 Dispo Type: Home (Routine DC) EVENTS: Event Name Event Status Request Date/Time Start Date/Time Complete Date/Time Arrive Complete 04/22/2024 18:34:34 04/22/2024 18:34:34 04/22/2024 18:34:34 Document Home Meds Request 04/22/2024 18:34:34 Triage Complete 04/22/2024 18:34:34 04/22/2024 18:39:05 04/22/2024 18:39:05 Bed Assign Complete 04/22/2024 18:34:34 04/22/2024 18:34:34 04/22/2024 18:34:34 Dr Exam Complete 04/22/2024 18:34:34 04/22/2024 18:58:53 04/22/2024 18:58:53 RN Exam Complete 04/22/2024 18:34:34 04/22/2024 18:45:31 04/22/2024 18:45:31 Registration Complete 04/22/2024 18:58:53 04/22/2024 19:55:12 04/22/2024 19:55:12 Dr Exam Complete 04/22/2024 19:06:43 04/22/2024 19:06:43 04/22/2024 19:06:43 EKG Complete 04/22/2024 19:15:46 04/22/2024 20:41:16 CT Complete 04/22/2024 19:15:46 04/22/2024 20:16:50 04/22/2024 20:30:40 NPO Request 04/22/2024 19:15:46 Meds Admin Complete 04/22/2024 19:15:46 04/22/2024 19:56:31 Pending Labs Complete 04/22/2024 19:15:46 04/22/2024 22:02:44 Lab Complete 04/22/2024 19:15:46 04/22/2024 20:29:58 Patient Care Complete 04/22/2024 19:15:46 04/22/2024 22:54:47 Urine Collect Complete 04/22/2024 19:15:46 04/22/2024 19:49:47 Reg Complete Request 04/22/2024 19:55:12 Reg Bed Request Complete 04/22/2024 19:55:12 04/22/2024 19:55:12 04/22/2024 19:55:12 Pending Labs Complete 04/22/2024 20:03:22 04/22/2024 20:03:22 04/22/2024 20:29:34 Lab Complete 04/22/2024 20:03:22 04/22/2024 20:03:22 04/22/2024 20:29:34 Pending Labs Complete 04/22/2024 20:52:02 04/22/2024 20:52:02 04/22/2024 20:52:03 Pending Labs Complete 04/22/2024 20:52:50 04/22/2024 20:52:50 04/22/2024 20:52:50 Meds Admin Complete 04/22/2024 22:35:15 04/22/2024 22:54:12 Discharge Complete 04/22/2024 22:43:36 04/22/2024 22:57:09 04/22/2024 22:57:09 Transfer Complete 04/22/2024 22:57:09 04/22/2024 22:57:09 04/22/2024 22:57:09 ADDRESS: [address] [facility] [id number] PHYS DOC NOTES: MEDICAL INFORMATION: Prescriptions Given: Medications to Continue Taking That Have Changed [employer] [address], [address], [place] [id number], [phone] START: ondansetron (ondansetron 4 mg Dis Tab) 1 Tablets By Mouth every 6 hours as needed Nausea/Vomiting. Refills: 0. Other Medications START: ondansetron (Zofran 4 mg Tab) 1 Tablets By Mouth every 6 hours as needed Nausea. Refills: 0. Medications to Continue with No Changes Other Medications acetaminophen (Tylenol Extra Strength 500 mg oral tablet) 1 Tablets By Mouth every 6 hours. baclofen (baclofen 20 mg Tab) 1 Tablets By Mouth 3 times a day. busPIRone (busPIRone 10 mg Tab) By Mouth every day. calcium carbonate (calcium (as carbonate) 500 mg oral tablet) 1 tab By Mouth every day. fluticasone nasal (Flonase 0.05 mg/inh [place]) 2 Sprays Nasal Inhalation every day. each nostril. Refills: 0. hydrOXYzine (hydrOXYzine hydrochloride 25 mg Tab) 1 Tablets By Mouth As Directed. lamotrigine (lamotrigine 200 mg Tab) 2 Tablets By Mouth every day. Refills: 0. losartan (losartan 50 mg Tab) 1 Tablets By Mouth 2 times a day. Refills: 3. multivitamin (Multi Vitamin+) 1 tablet By Mouth every day. naproxen (naproxen 500 mg Tab) 1 Tablets By Mouth 2 times a day. take 14 days BID .. Refills: 0. omega-3 polyunsaturated fatty acids ([place]-3 Fish Oil) 1 tab By Mouth every day. oxcarbazepine (Trileptal 300 mg Tab) 1.5 tab(s) Oral Bedtime. rimegepant (Nurtec ODT 75 mg oral tablet, disintegrating) semaglutide (Wegovy (0.25 mg dose) subcutaneous solution) 0.25 Milligram Subcutaneous every week. Refills: 0. suvorexant (Belsomra 20 mg oral tablet) 1 Tablets By Mouth once a day (at bedtime). g47.0. Refills: 1. PATIENT EDUCATION INFORMATION: Instructions: Nausea, Adult, Gxzd-iu-Sdua; Abdominal Pain, Adult, Qwno-fe-Zxse Follow up: With: Address: When: Sara Green [address] [place] [address] A, [place] [address] Business (1) In 3 days 04/25/2024 DIAGNOSIS: 1:Nausea in adult; 2:Abdominal pain of unknown etiology Normal [facility] ED Patient Summaryon 024 ED Patient Summary ED Patient Summary [place] [id number] Patient Discharge Instructions Person Information Name: SAVANAH BYERS Age: 53 Years Arrival Date: 04/22/2024 18:34:34 Discharge Diagnosis: 1:Nausea in adult; 2:Abdominal pain of unknown etiology Primary Care Physician: Peter DAVISON, Sara Cueva Provider Information Primary Provider: Aron Echevarria DO [employer] Assistant:None The exam and treatment you received in the Emergency Department were for an urgent problem and are not intended as complete care. It is important that you follow up with a doctor, nurse practitioner, or physician?s assistant to the director for ongoing care. If your symptoms become worse or you do not improve as expected and you are unable to reach your usual health care provider, you should return to the Emergency Department. We are available 24 hours a day. SAVANAH BYERS has been given the following list of patient education materials, prescriptions and follow-up instructions: Follow-up Instructions: With: Address: When: Sara Green [address] [facility], [address], [place] [id number] Business (1) In 3 days 04/25/2024 In the event that this physician does not participate in your insurance network, please consult with your insurance company to find a nearby participating provider. Patient Education Materials: Nausea, Adult, Bnui-qs-Mpvm; Abdominal Pain, Adult, Iuws-mj-Hcig A MESSAGE TO ALL PATIENTS REGARDING OPIOIDS PRESCRIPTION OPIOIDS: WHAT YOU NEED TO KNOW Prescription opioids can be used to help relieve gigkrzqq-ir-aggifq pain and are often prescribed following a surgery or injury, or for certain health conditions. These medications can be an important part of the treatment but also come with serious risks. It is important to work with your healthcare provider to make sure you are getting the safest, most effective care. WHAT ARE THE RISKS AND SIDE EFFECTS OF OPIOID USE? Prescription opioids carry serious risks of addiction and overdose, especially with prolonged use. An opioid overdose, often marked by slowed breathing, can cause sudden . The use of prescription opioids can have a number of side effects as well, even when taken as directed: ? Tolerance?meaning you might need to take more of the medication for the same pain relief ? Physical dependence?meaning you have symptoms of withdrawal when a medication is stopped ? Increased sensitivity to pain ? Constipation ? Nausea, vomiting, and dry mouth ? Sleepiness and dizziness ? Confusion ? Depression ? Low levels of testosterone that can result in lower sex drive, energy, and strength ? Itching and sweating RISKS ARE GREATER WITH: ? History of drug misuse, substance use disorder, or overdose ? Mental health conditions (such as depression or anxiety) ? Sleep apnea ? Older age (65 years and older) ? Avoid alcohol while taking prescription opioids. Also, unless specifically advised by your health care provider, medications to avoid include: ? Benzodiazepines (such as Xanax or Valium) ? Muscle relaxants (such as Soma or Flexeril) ? Hypnotics (such as Ambien or Lunesta) ? Other prescription opioids KNOW YOUR OPTIONS Talk to your health care provider about ways to manage your pain that don?t involve prescription opioids. Some of these options may actually work better and have fewer risks and side effects. Options may include: ? Pain relievers such as acetaminophen, ibuprofen, and naproxen ? Some medication that are also used for depression or seizures ? Physical therapy and exercise ? Cognitive behavioral therapy, a psychological, goal-directed approach, in which patients learn how to modify physical, behavioral, and emotional triggers of pain and stress. IF YOU ARE PRESCRIBED OPIOIDS FOR PAIN: ? Never take opioids in greater amounts or more often than prescribed. ? Follow up with your primary health care provider. o Work together to create a plan on how to manage your pain. o Talk about ways to help manage your pain that don?t involve prescription opioids. o Talk about any and all concerns and side effects. ? Help prevent misuse and abuse o Never sell or share prescription opioids. o Never use another person?s prescription opioids. ? Store prescription opioids in a secure place and out of reach of others (this may include visitors, children, friends, and family). ? Safely dispose of unused prescription opioids: Find your community drug take-back program or your pharmacy mail-back program, or flush them down the toilet, following guidance from the Food and Drug Administration (www.fda.gov/Drugs/Res ourcesForYou). ? Visit www.cdc.gov/drugoverdo se to learn about the risks of opioids abuse and overdose. ? If you believe you may be struggling with addiction, tell your health care (more content not included)... Normal [facility] Hep Func Panelon 04-22-2024 Albumin [Mass/Vol] 4.7 g/dL Normal 3.3-5.0 [facility] Comment on above: Performed By: #### 2 [id number] #### [facility] [address] [place] [address] Albumin/Globulin (S) [Mass conc ratio] 1.7 Normal 1.1-2.2 [facility] Comment on above: Performed By: #### 2 [id number] #### [facility] [address] [place] [address] ALP [Catalytic activity/Vol] 103 Int._Unit/L High 21-98 [facility] Comment on above: Performed By: #### 2 [id number] #### [facility] [address] [place] [address] ALT No additional P-5'-P [Catalytic activity/Vol] 34 Int._Unit/L Normal 6-46 [facility] Comment on above: Performed By: #### 2 [id number] #### [facility] [address] [place] [address] AST [Catalytic activity/Vol] 38 Int._Unit/L Normal 5-43 [facility] Comment on above: Performed By: #### 2 [id number] #### [facility] [address] [place] [address] Bilirubin [Mass/Vol] 0.5 mg/dL Normal 0.0-1.1 [facility] Comment on above: Performed By: #### 2 [id number] #### [facility] [address] [place] [address] Bilirubin.direct [Mass/Vol] 0.1 mg/dL Normal 0.0-0.4 [facility] Comment on above: Performed By: #### 2 [id number] #### [facility] [address] [place] [address] Bilirubin.indirect [Mass or moles/Vol] 0.4 mg/dL Normal 0.1-0.9 [facility] Comment on above: Performed By: #### 2 [id number] #### [facility] [address] [place] [address] Globulin (S) [Mass/Vol] 2.8 g/dL Normal 1.4-4.0 [facility] Comment on above: Performed By: #### 2 [id number] #### [facility] [address] [place] [address] Protein [Mass/Vol] 7.5 g/dL Normal 6.0-7.8 [facility] Comment on above: Performed By: #### 2 [id number] #### [facility] [address] [place] [address] Lactic Acidon 04-22-2024 Lactic Acid Lvl 1.6 mmol/L Normal 0.5-2.2 [facility] Comment on above: Performed By: #### 2 [id number] #### [facility] [address] [place] [address] Lipase Levelon 04-22-2024 Lipase [Catalytic activity/Vol] 187 U/L High 13-58 [facility] Comment on above: Performed By: #### 2 [id number] #### [facility] [address] [place] [address] PT & PTTon 04-22-2024 aPTT Coag (PPP) [Time] 30.7 second(s) Normal 25.1-36.5 [facility] Comment on above: Result Comment: Para meter 15 days - 4 weeks 1 - 5 months 6 - 11 months 1 - 5 years 6 - 10 years 11 - 17 years PTT Mean: 35.4 (27.6-45.6) Mean: 33.5 (24.8-40.7) Mean: 32.4 (25.1-40.7) Mean: 31.6 (24.0-39.2) Mean: 31.6 (26.9-38.7) Mean: 31.0 (24.6-38.4) Pediatric Reference ranges were obtained from a study by Lazarus Whalen et al. prepared from 1437 samples obtained at 7 different centers using the same coagulation reagent and instrumentation [place] [facility] [place] Currently there are no coagulation studies available worldwide for children to 14 days, and no normal ranges. Heparin therapeutic range (represented by Anti-Factor Xa activity of 0.2 - 0.4 U/mL) corresponds to PTT of 56.6 - 109.0 sec. Performed By: #### 1 [id number] #### [facility] [address] [place] [address] INR Coag (PPP) [Relative time] 0.99 {INR} Invalid Interpretation Code [facility] Comment on above: Result Comment: INR results are specifically intended to assess patients stabilized on long-term Anticoagulation therapy suggested INR?s ?Less Intensive Anticoagulation? 2.0 ? 3.0 Conventional Range 3.0 ? 4.5 Performed By: #### 1 [id number] #### [facility] [address] [place] [address] PT Coag (PPP) [Time] 11.1 second(s) Normal 9.4-12.5 [facility] Comment on above: Result Comment: 15 d ays - 4 weeks 1 - 5 months 6 -11 months 1- 5 years 6-10 years 11 -17 years Mean: 11.2 (9.5-12.6) Mean: 11.0 (9.7-12.8) Mean: 11.0 (9.8-13.0) Mean: 11.3 (9.9-13.4) Mean: 11.7 (10.0-14.6) Mean: 11.8 (10.0 - 14.1) Pediatric Reference ranges were obtained from a study by Lazarus Whalen et al. prepared from 1437 samples obtained at 7 different centers using the same coagulation reagent and instrumentation [place] [facility] [place] Currently there are no coagulation studies available worldwide for children to 14 days, and no normal ranges. Performed By: #### 1 [id number] #### [facility] [address] [place] [address] Pre-Arrival Noteon Pre-Arrival Note Pre-Arrival Note Pre-Arrival Summary [facility]: , [facility] Current Date: 04/22/2024 18:35:11 EDT Gender: Female Date of : Age: 53 Pre-Arrival Type: EMS ETA: 04/22/2024 18:56:00 EDT Primary Care Physician: Presenting Problem: Pre-Arrival User: Deneen Dumont RN Referring Source: Location: [place] Completion Date/Time: 04/22/2024 18:26:00 [facility] Emergency Department Pre-Hospital Report Form Vital Signs: Pre-Hospital Report: Treatment in Route: Response to Treatment: Misc. Issues: Normal [facility] Troponin 0 Hr.on 04-22-2024 Troponin HS 2.80 pg/mL Low 10.10-27.10 [facility] Comment on above: Result Comment: The 95% CI (Confidence Interval) PPV (Positive Predictive Value) for myocardial infarction in females is 38 pg/mL, in males 51 pg/mL. The results should be used in conjunction with clinical conditions of myocardial infarction. (Access High Sensitivity Troponin I Instructions For Use, Apollidon, March 2018) Performed By: #### 1 [id number] #### [facility] [address] [place] [address] Troponin 1 Hr.on 04-22-2024 Troponin HS 2.70 pg/mL Low 10.10-27.10 [facility] Comment on above: Order Comment: Due a t 21:00 Result Comment: The 95% CI (Confidence Interval) PPV (Positive Predictive Value) for myocardial infarction in females is 38 pg/mL, in males 51 pg/mL. The results should be used in conjunction with clinical conditions of myocardial infarction. (Revivio High Sensitivity Troponin I Instructions For Use, Apollidon, March 2018) Performed By: #### 1 [id number] #### [facility] [address] [place] [address] U BetaHcg Qualon 04-22-2024 HCG.beta subunit (U) [Moles/Vol] Negative Normal [facility] Comment on above: Performed By: #### 2 [id number] #### [facility] [address] [place] [address] UA with Cult Rflxon 04-22-20 24 Bilirubin Ql (U) Negative Normal Negative [facility] Comment on above: Performed By: #### 4 [id number] #### [facility] [address] [place] [address] Clarity (U) Clear Normal Clear [facility] Comment on above: Performed By: #### 4 [id number] #### [facility] [address] [place] [address] Color (U) Light-Yellow Normal Yellow [facility] Comment on above: Result Comment: Micr oscopic readings are only performed on those samples that meet specific criteria set forth by [facility]. Performed By: #### 4 [id number] #### [facility] [address] [place] [address] Epithelial cells.squamous Auto (Urine sed) [#/Area] 0-2 Invalid Interpretation Code [facility] Comment on above: Performed By: #### 4 [id number] #### [facility] [address] [place] [address] Glucose Ql (U) Negative Normal Negative [facility] Comment on above: Performed By: #### 4 [id number] #### [facility] [address] [place] [address] Hemoglobin Auto test strip (U) [Mass/Vol] 2+ mg/dL Abnormal Negative [facility] Comment on above: Performed By: #### 4 [id number] #### [facility] [address] [place] [address] Ketones Auto test strip Ql (U) Negative Normal Negative [facility] Comment on above: Performed By: #### 4 [id number] #### [facility] [address] [place] [address] Leukocyte esterase Auto test strip Ql (U) Negative Normal Negative [facility] Comment on above: Performed By: #### 4 [id number] #### [facility] [address] [place] [address] Mucus Auto Ql (U) Trace Normal Negative [facility] Comment on above: Performed By: #### 4 [id number] #### [facility] [address] [place] [address] Nitrite Auto test strip Ql (U) Negative Normal Negative [facility] Comment on above: Performed By: #### 4 [id number] #### [facility] [address] [place] [address] pH (U) 6.0 [pH] Invalid Interpretation Code 5.0-9.0 [facility] Comment on above: Performed By: #### 4 [id number] #### [facility] [address] [place] [address] Protein Ql (U) Negative Normal Negative [facility] Comment on above: Performed By: #### 4 [id number] #### [facility] [address] [place] [address] RBC Ql (U) 4-20 Abnormal 0-3 [facility] Comment on above: Performed By: #### 4 [id number] #### [facility] [address] [place], [place] [address] Specific gravity (U) [Rel density] 1.014 Invalid Interpretation Code 1.005-1.030 [facility] Comment on above: Performed By: #### 4 [id number] #### [facility] [address] [place], [place] [address] Urobilinogen (U) [Mass/Vol] Negative Normal Negative [facility] Comment on above: Performed By: #### 4 [id number] #### [facility] [address] [place], [place] [address] WBC Auto (Urine sed) [#/Area] 0-5 Normal 0-5 [facility] Comment on above: Performed By: #### 4 [id number] #### [facility] [address] [place] [address] Type of Urine collection method Clean Catch Normal [facility] Comment on above: Performed By: #### 4 [id number] #### [facility] [address] [place] [address] eGFRon 04-22-2024 eGFR 104 mL/min/1.73 m2 Normal >=59 [facility] Comment on above: Order Comment: Order added by Discern Expert. Performed By: #### 1 [id number] #### [facility] [address] [place] [address] Ambulatory Visit Summaryon 0 04-12-2024 Ambulatory Visit Summary Ambulatory Visit Summary SAVANAH BYERS :1970 Visit Date:04/12/2024 Ambulatory Visit Instructions Your Diagnosis Bipolar I disorder, mild, current or most recent episode depressed, in full remission, with anxious distress Encounter for weight loss counseling Hypertension HLD (hyperlipidemia) Overweight Nausea BMI 28.0-28.9,adult Your Care Team Attending Physician - Sara Flood Primary Care Physician - Sara Flood This Is Your Medications List ondansetron (Zofran 4 mg Tab) semaglutide (Wegovy (0.25 mg dose) subcutaneous solution) Contact prescribing physician if questions or concerns acetaminophen (Tylenol Extra Strength 500 mg oral tablet) baclofen (baclofen 20 mg Tab) busPIRone (busPIRone 10 mg Tab) calcium carbonate (calcium (as carbonate) 500 mg oral tablet) fluticasone nasal (Flonase 0.05 mg/inh [place]) hydrOXYzine (hydrOXYzine hydrochloride 25 mg Tab) lamotrigine (lamotrigine 200 mg Tab) losartan (losartan 50 mg Tab) multivitamin (Multi Vitamin+) naproxen (naproxen 500 mg Tab) omega-3 polyunsaturated fatty acids ([place]-3 Fish Oil) oxcarbazepine (Trileptal 300 mg Tab) rimegepant (Nurtec ODT 75 mg oral tablet, disintegrating) suvorexant (Belsomra 20 mg oral tablet) [Image Removed: STOP]Stop taking these medications buPROPion (Wellbutrin SR 150 mg Tab-ER) Procedures Performed Colonoscopy (08/07/2015), left knee arthroscopy with anterior cruciate ligament reconstruction using bone, patellar tendon, bone allograft (10/06/2014), ACL (anterior cruciate ligament) rupture...., Arthroscopy and biopsy of knee, Injection of nerve root of lumbar spine using fluoroscopic guidance, right great toe surgery, sinus surgery. Discharge Vitals Heart Rate (Peripheral) 75 Blood Pressure 138/86 Height 171 cm Weight 184.58 lb Weight 83.9 kg BMI 28.53 What to do next Scheduled Follow-Up Appointments Monday 2:00 PM EDT Where: [facility] You Need to Schedule the Following Appointments Follow Up with Peter DAVISON, ANGY Mejia, MED When: In 1 month Comments: weight loss Where: [address], [address] [address]- Medications What How Much When Why Instructions New ondansetron (Zofran 4 mg Tab) 1 Tablets By Mouth Every 6 hours as needed for Nausea Nausea Pickup at [email or web address] [address] New semaglutide (Wegovy (0.25 mg dose) subcutaneous solution) 0.25 Milligram Subcutaneous Every week Hypertension HLD (hyperlipidemia) BMI 28.0-28.9,adult Overweight Encounter for weight loss counseling Pickup at [facility] [address] Unchanged acetaminophen (Tylenol Extra Strength 500 mg oral tablet) 1 Tablets By Mouth Every 6 hours Contact prescribing physician if questions or concerns Unchanged baclofen (baclofen 20 mg Tab) 1 Tablets By Mouth 3 times a day Contact prescribing physician if questions or concerns Unchanged busPIRone (busPIRone 10 mg Tab) By Mouth Every day Contact prescribing physician if questions or concerns Unchanged calcium carbonate (calcium (as carbonate) 500 mg oral tablet) 1 tab By Mouth Every day Contact prescribing physician if questions or concerns Unchanged fluticasone nasal (Flonase 0.05 mg/ inh [place]) 2 Sprays Nasal Inhalation Every day Left otitis media Fluid level behind tympanic membrane of both ears BMI 30.0-30.9,adult each nostril Contact prescribing physician if questions or concerns Unchanged hydrOXYzine (hydrOXYzine hydrochloride 25 mg Tab) 1 Tablets By Mouth As Directed Contact prescribing physician if questions or concerns Unchanged lamotrigine (lamotrigine 200 mg Tab) 2 Tablets By Mouth Every day Contact prescribing physician if questions or concerns Unchanged losartan (losartan 50 mg Tab) 1 Tablets By Mouth 2 times a day Contact prescribing physician if questions or concerns Unchanged multivitamin (Multi Vitamin+) 1 tablet By Mouth Every day Contact prescribing physician if questions or concerns Unchanged naproxen (naproxen 500 mg Tab) 1 Tablets By Mouth 2 times a day Cervical spine pain Overweight Adult BMI 28.0-28.9 kg/sq m take 14 days BID . Contact prescribing physician if questions or concerns Unchanged omega-3 polyunsaturated fatty acids ([place]-3 Fish Oil) 1 tab By Mouth Every day Contact prescribing physician if questions or concerns Unchanged oxcarbazepine (Trileptal 300 mg Tab) See instructions 1.5 tab(s) Oral Bedtime Contact prescribing physician if questions or concerns Unchanged rimegepant (Nurtec ODT 75 mg oral tablet, disintegrating) Contact prescribing physician if questions or concerns Unchanged suvorexant (Belsomra 20 mg oral tablet) 1 Tablets By Mouth Once a day (at bedtime) g47.0 Contact prescribing physician if questions or concerns Pharmacy Information [facility] [address]: [address] [place], [place] [id number] [phone] What How Much When Why Comments Stop Taking b (more content not included)... Normal [facility] Family Medicine Office/Clini c Noteon 04-12-2024 Family Medicine Office/Clinic Note Family Medicine Office/Clinic Note Chief Complaint medication review HPI Staff F/U for medication Pt. states she has been taking Wellbutrin and is now having issues with being responsible, noticed it the last couple of months. Might like to try something new for weight management. Flu - declines The standard range for ages 18 and older is >=18.5 and < 25 kg/m2. Your BMI today was above this range, this falls in the overweight to obese category and there are medical benefits to weight loss. We can offer counselling, referral, and/or medical support in addressing this problem. Your BMI and weight management will be followed at subsequent visits. History of Present Illness I have reviewed and discussed the HPI (staff) with the patient today. Information was verified and is correct. Additional information provided if needed. Savanah Byers is a 53-year-old female here for a follow-up. Her last visit was on 03/01/2024. Anxiety and depression: Patient is here for follow-up on major depressive disorder and/or generalized anxiety disorder. Currently enrolled in therapy? _ Patient reports being well controlled and tolerating medication well at this time. Patient denies medication side effects (Headaches, sexual dysfunction, increased weight, nausea, drowsiness). Patient denies increased fatigue/sleepiness, suicidal ideation/homicidal ideation, feelings of worthlessness, appetite changes, anhedonia, depressed mood, racing thoughts, insomnia, agitation, increased worrying, rapid heart rate, shortness of breath at this time. Weight loss: The patient's BMI is 28.5 kg/m2. She is asking for recommendations for weight loss. I think we tried Wellbutrin for weight loss, but it does not look like it is helping much. We did 150 twice a day. She reports that the combination of Wellbutrin and naltrexone did not suppress her appetite and believes it made it worse. She took the initial 30-day course and then received a second prescription, advised to take it twice a day. Despite this, she did not experience improvement in her cravings. She acknowledges that naltrexone and Wellbutrin made her cravings worse. Wellbutrin was initially effective for the first week, but its effectiveness waned after 2 to 3 weeks. She also notes that Wellbutrin has been affecting her mental health, as she has been on medication for her bipolar disorder for a long time. She reports no hallucinations, delusions, or suicidal thoughts. She does not want to take Wellbutrin. She measured her height today at 5 feet 7.25 inches. Her goal weight is around 150 to 160 pounds, and she has always felt comfortable weighing between 145 and 150 pounds. She has previously tried topiramate but is unable to recall if it caused side effects. Her diet includes 2 meals a day, sometimes skipping meals due to work commitments. She typically consumes Faroese yogurt and a granola bar, and a sandwich with chips when she returns home at 11:00. She has never had an injection for weight loss. She experienced severe abdominal pain for a week, and her bowel movements were grass green. She researched this and thought her intestine was not digesting or breaking down her food enough, so she discontinued naltrexone, Wellbutrin, and magnesium as she was also taking magnesium to help her sleep. The pharmacist advised her to take magnesium gluconate. After stopping naltrexone, Wellbutrin, and magnesium, she felt better and returned to her other 2 medications, which she tolerated well. Nausea: She took Dramamine for nausea, and it helped. She requests nausea medication. Hypertension: Blood pressure looks mildly elevated in the past but looks good today. Review of Systems The pertinent positive and negative findings are as noted in the HPI. Physical Exam Vitals & Measurements HR: 75(Peripheral) BP: 138/86 SpO2: 98% HT: 171 cm WT: 83.9 kg WT: 184.58 lb BMI: 28.53 General: The patient is an overweight female, seen in room 3. ENMT: oral mucosa moist, no pharyngeal erythema or exudate Cardiovascular: regular rate and rhythm, normal peripheral perfusion, noedema Respiratory: no distress, Lungs CTA, respirations non labored Extremities: no deformity, no trauma Neurological: oriented x 4, LOC appropriate for age, CN II-XII intact, motor strength equal & normal bilaterally, sensation equal & normal bilaterally, speech normal Integumentary: intact, warm & dry, norashes, no open sores Assessment/Plan 1. Bipolar I disorder, mild, current or most recent episode depressed, in full remission, with anxious distress (F31.76: Bipolar disorder, in full remission, most recent episode depressed) - Bipolar disorder was exacerbated with Wellbutrin use, so we are going stop that and stop the naltrexone as previously prescribed, not working for weight loss and actually increasing her cravings. - Patient to continue previously prescribed meds including buspirone, hydroxyzine, Lamictal, Trileptal, as previously prescribed for her (more content not included)... Normal [facility] Comment on above: Result Comment: Elec tronically Signed By: Sara Folod\.br\Date and Time Signed: 04/12/24 17:56 EDT\.br\Electronically Co-Signed By: Sole Jung\.br\Date and Time Co-Signed: 04/12/24 13:33 EDT Family Medicine Office/Clini c Noteon 03-05-2024 Family Medicine Office/Clinic Note Family Medicine Office/Clinic Note Chief Complaint 1 month follow up-neck and hand and medication check HPI Staff Reason for vision:Follow up for neck discomfort, hand discomfort, med check Note: Patient would like to discuss right hand swelling and numbness, elbow and neck discomfort. Pain Assessment Provocation/Palliation Onset: Last week What makes pain better:Medication What makes pain worse:Movement (grasping items) Quality/Quantity What does it feel like: _ Region/Radiation Where is the pain located: Right elbow Severity Scale How Severe is the Pain Now:0 (No Pain) How bad is it at its worst: 7 (Very Intense) (when grasping items) History of Present Illness Savanah Byers is a 53-year-old female here for follow-up. I have reviewed and discussed the HPI (staff) with the patient today. Information was verified and is correct. Additional information provided if needed. Elbow and neck pain: She is complaining of some right elbow pain today. Around a week ago, she started experiencing pain in her elbow, particularly between the bone and a fleshy area. She has not had any trauma to the area. 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 Squeezing tightly causes sharp pain in her elbow. She purchased a tennis elbow device over the counter as she thought she had tendinitis, but when she places her elbow on the cushion, it hurts. Despite using the device for a week, she has not found any relief. She believes she does not exactly have discomfort in her elbow. The patient has been using naproxen or Aleve for pain management. She is employed in the [employer] department at [employer], where she is required to lift approximately 50 pounds over her head. Additionally, she is experiencing discomfort on the right side of her neck, along with numbness and tingling, and a strange sensation in her little finger. She takes naproxen at night for her neck pain. She denies any lymph node issues under the armpit. She has not undergone any breast surgeries. She has constant tightness in her shoulders. She also experiences an unusual feeling that she needs to crack or stretch. Her pain does not radiate all the way down to her arm. She has mild pain when she rotates her wrist outward and inward, as well as when squeezing her hand tightly or picking up a water bottle. She prefers not to take prednisone as it increases her appetite. Right hand swelling and numbness: At the last visit, we saw each other on 01/31/2024, a month ago. She wanted to talk about some right hand swelling and numbness. According to the patient, the Medrol Dosepak resulted in significant alleviation of her right hand edema and numbness after 3 days. She noticed a slight improvement in the edema. Weight management: At the last visit, she also wanted to talk about weight loss. We had tried to send to the pharmacy naltrexone and Wellbutrin, but there were some issues with availability at different pharmacy, so we had to send it to a local compounding pharmacy called [email or web address]. Hypertension: The patient's blood pressure is elevated today, possibly due to rushing. She remains compliant with her blood pressure medication. We will recheck her blood pressure. She monitors her blood pressure at home, with readings ranging from 118 to 124 systolic. However, there have been a few occasions where her systolic blood pressure reached 146. She noted experiencing hot flushes during these episodes of elevated blood pressure. Lumbar disc issue: Previously, she had a lumbar disc issue. She was examined 5 to 6 months ago for this. She consulted pain management 8 years ago and was referred to Dr. Sparrow. She is currently being treated by Dr. Sparrow. An MRI conducted in 07/2023 revealed minimal degenerative disc disease at L4, L5, and S1. There was some narrowing of the space at L4-L5 and minimal disc bulge noted, similar to an MRI from 2018. In 2014, a nerve test was conducted for her back and neck, which indicated nerve damage rated at 4. Additionally, an EMG was performed. Post ACL repair by Dr. Davis, she suffered from back pain and 75% numbness in her lower extremity. She had injections in her back, and it took 9 months to resolve the symptoms. She experiences lower back tightness intermittently. She sees Geena Hansen PA-C, neurology with Dr. Saprrow. She sees Dr. Sparrow once a year. Geena Hansen manages her baclofen, Topamax, Trileptal, and Nurtec. [facility] provides her with Lamictal, buspirone, and Belsomra. Review of Systems PHQ Score Initial Depression Screen Score: 0 SCORE The pertinent positive and negative findings are as noted in the HPI. Physical Exam Vitals & Measurements T: 36.9 ?C(Temporal Artery) HR: 65(Peripheral) RR: 18 BP: 140/80 SpO2: 99% HT: 68 in HT: 171.5 cm WT: 84.5 kg WT: 185.9 lb BMI: 28.73 General: alert, no acute distress, _well appearing, _pleasant (more content not included)... Normal [facility] Comment on above: Result Comment: Elec tronically Signed By: Peter DAVISON, Sara Cueva\.lesly\Date and Time Signed: 03/05/24 13:01 EDT\.br\Electronically Co-Signed By: Ruthy Rivers\.lesly\Date and Time Co-Signed: 03/04/24 08:48 EDT Ambulatory Visit Summaryon 0 03-01-2024 Ambulatory Visit Summary Ambulatory Visit Summary SAVANAH BYERS :1970 Visit Date:03/01/2024 Ambulatory Visit Instructions Your Diagnosis Swelling of right hand Paresthesia of hand Hypertension Adult BMI 28.0-28.9 kg/sq m Overweight Right elbow tendinitis Encounter for weight loss counseling Your Care Team Attending Physician - Sara Flood Primary Care Physician - Sara Flood This Is Your Medications List buPROPion (Wellbutrin SR 150 mg Tab-ER) methylPREDNISolone (Medrol 4 mg Tab) Contact prescribing physician if questions or concerns acetaminophen (Tylenol Extra Strength 500 mg oral tablet) baclofen (baclofen 20 mg Tab) busPIRone (busPIRone 10 mg Tab) calcium carbonate (calcium (as carbonate) 500 mg oral tablet) fluticasone nasal (Flonase 0.05 mg/inh [place]) hydrOXYzine (hydrOXYzine hydrochloride 25 mg Tab) lamotrigine (lamotrigine 200 mg Tab) losartan (losartan 50 mg Tab) multivitamin (Multi Vitamin+) naproxen (naproxen 500 mg Tab) omega-3 polyunsaturated fatty acids ([place]-3 Fish Oil) oxcarbazepine (Trileptal 300 mg Tab) rimegepant (Nurtec ODT 75 mg oral tablet, disintegrating) suvorexant (Belsomra 20 mg oral tablet) [Image Removed: STOP]Stop taking these medications naltrexone (naltrexone 4.5 mg oral capsule) Procedures Performed Colonoscopy (08/07/2015), left knee arthroscopy with anterior cruciate ligament reconstruction using bone, patellar tendon, bone allograft (10/06/2014), ACL (anterior cruciate ligament) rupture...., Arthroscopy and biopsy of knee, Injection of nerve root of lumbar spine using fluoroscopic guidance, right great toe surgery, sinus surgery. Discharge Vitals Temperature (Temporal Artery) 36.9 ?C Heart Rate (Peripheral) 65 Respiratory Rate 18 Blood Pressure 140/80 Height 171.5 cm Height 68 in Weight 84.5 kg Weight 185.9 lb BMI 28.73 Medications What How Much When Why Instructions New methylPREDNISolone (Medrol 4 mg Tab) 1 Packets By Mouth As Directed Paresthesia of hand Right elbow tendinitis Duration: 6 Days as directed on package labeling Pickup at [email or web address] Changed buPROPion (Wellbutrin SR 150 mg Tab-ER) 1 Tablets By Mouth 2 times a day Encounter for weight loss counseling Adult BMI 28.0-28.9 kg/sq m Overweight Pickup at [email or web address] Unchanged acetaminophen (Tylenol Extra Strength 500 mg oral tablet) 1 Tablets By Mouth Every 6 hours Contact prescribing physician if questions or concerns Unchanged baclofen (baclofen 20 mg Tab) 1 Tablets By Mouth 3 times a day Contact prescribing physician if questions or concerns Unchanged busPIRone (busPIRone 10 mg Tab) By Mouth Every day Contact prescribing physician if questions or concerns Unchanged calcium carbonate (calcium (as carbonate) 500 mg oral tablet) 1 tab By Mouth Every day Contact prescribing physician if questions or concerns Unchanged fluticasone nasal (Flonase 0.05 mg/ inh [place]) 2 Sprays Nasal Inhalation Every day Left otitis media Fluid level behind tympanic membrane of both ears BMI 30.0-30.9,adult each nostril Contact prescribing physician if questions or concerns Unchanged hydrOXYzine (hydrOXYzine hydrochloride 25 mg Tab) 1 Tablets By Mouth As Directed Contact prescribing physician if questions or concerns Unchanged lamotrigine (lamotrigine 200 mg Tab) 2 Tablets By Mouth Every day Contact prescribing physician if questions or concerns Unchanged losartan (losartan 50 mg Tab) 1 Tablets By Mouth 2 times a day Contact prescribing physician if questions or concerns Unchanged multivitamin (Multi Vitamin+) 1 tablet By Mouth Every day Contact prescribing physician if questions or concerns Unchanged naproxen (naproxen 500 mg Tab) 1 Tablets By Mouth 2 times a day Cervical spine pain Overweight Adult BMI 28.0-28.9 kg/sq m take 14 days BID . Contact prescribing physician if questions or concerns Unchanged omega-3 polyunsaturated fatty acids ([place]-3 Fish Oil) 1 tab By Mouth Every day Contact prescribing physician if questions or concerns Unchanged oxcarbazepine (Trileptal 300 mg Tab) See instructions 1.5 tab(s) Oral Bedtime Contact prescribing physician if questions or concerns Unchanged rimegepant (Nurtec ODT 75 mg oral tablet, disintegrating) Contact prescribing physician if questions or concerns Unchanged suvorexant (Belsomra 20 mg oral tablet) 1 Tablets By Mouth Once a day (at bedtime) g47.0 Contact prescribing physician if questions or concerns Pharmacy Information [facility] #37: [address] [place], [place] [id number] [phone] What How Much When Why Comments Stop Taking naltrexone (naltrexone 4.5 mg oral capsule) 2 Capsules By Mouth Every day Encounter for weight loss counseling Allergies penicillins Vicodin (migraines for 2 weeks) Problems Ongoing - Any problem that you are currently receiving treatment for. Allergic reaction to tattoo ink Bipolar I disorder, mi (more content not included)... Normal [facility] Family Medicine Office/Clini c Noteon 02-02-2024 Family Medicine Office/Clinic Note Family Medicine Office/Clinic Note Chief Complaint 3 month follow up-HTN, weight loss meds, and right hand numbness/swelling HPI Staff Reason for vision:Follow up for HTN Note: Patient would like to discuss weight loss options (Contrave) and right hand swelling and numbness (started 2-3 months ago) Patient is here for follow up on hypertension. How often are you checking your blood pressure? Daily What are your average readings? 118-123/80s Are you compliant with your diet? yes Do you exercise? yes Are you compliant with your medications or having difficulty affording your medications? no Have you had any ER visits or hospitalizations since last visit:No Have you had any recent cardiopulmonary testing: No Do you have side effects from the medication? None Do you have any of the following symptoms? Chest Pain? no Palpitations? no PERES/SOB? no Headache? yes Patient states it is due to the weather changes Peripheral Edema? yes Patient c/o right hand swelling and numbness Light Headedness? yes Patient states it occurred Monday but she thinks she was dehyrdated History of Present Illness I have reviewed and discussed the HPI (staff) with the patient today. Information was verified and is correct. Additional information provided if needed. Savanah Byers is a 53-year-old female who is here for follow-up. Her last appointment with me was 09/06/2023, about 6 months ago. She was here for an acute cough. Prior to that, she was here on 08/17/2023 for a possible skin infection; 08/02/2023 was her establishing care visit with me. Weight loss: The patient expressed a desire to discuss her weight loss progress. Initially, she was instructed to take one pill of Wellbutrin for the first week or two, and then increase the dosage to two pills. However, she only adhered to taking one pill. At present, she has discontinued the use of Wellbutrin. During the initial weeks, Wellbutrin proved to be beneficial. She was only provided with a three-month supply of Wellbutrin, and she did not always take the second pill as it caused her to feel more alert in the mornings, disrupting her sleep pattern. She used to take Wellbutrin at 3:30 in the morning. She wants to continue taking 1 tablet of Wellbutrin. She has had a 10-pound weight loss since 08/2023. She reported feeling well when her weight was 150 pounds. She was told she should consume 1700 calories every day. Currently, she prepares her own beverage, which comprises of cold brew, oat milk, and cold foam. She stopped drinking Celsius energy drinks. She does not add sugar to her coffee. Her appetite and hydration are normal. She denies any abdominal issues. Insomnia: After going without her Belsomra for 1.5 weeks, she took her first pill last night, 01/30/2024, prescribed by Kia Rowe- She slept well last night, 01/30/2024. Previously, she had been using Unisom, which resulted in frequent awakenings, racing thoughts, and difficulty falling asleep, leading to only 7 hours of sleep with restlessness for 3 hours. Hypertension: Upon her arrival, her blood pressure was elevated, which she attributes to consuming cold brew at 10:00 AM. She regularly checks her blood pressure at home, with readings typically ranging from 145 to 150 mmHg. However, after adjusting the position of the blood pressure cuff to heart level, her readings decreased on the lower side. She is currently taking losartan 25 mg once a day at night and requests refills. Her morning blood pressure readings had been 118 mmHg and 124 mmHg, which was the highest. She denies experiencing headaches, blurry vision, or chest pain. She notes that her highest blood pressure was in the afternoon at 134 to 135 mmHg after consuming Coke. The patient has made dietary changes, including reducing salt intake, and consuming fresh food and a lot of pasta with heavy whipping cream or butter and garlic without salt and sugar. Back pain, neck pain, and hand discomfort: The patient has been consistently dealing with back pain, which she attributes to repetitive twisting movements at her workplace after lifting heavy objects above her head. Sleeping makes her back pain worse. She visits her [id number], who is a therapist, every two weeks. Despite using baclofen for an extended period, she has not found significant relief. To aid in relaxation, she takes baclofen at night. Various muscle relaxants have been tried, but none have proven effective. In the past, she has taken a Medrol Dosepak twice for her back pain, which provided relief for a period of 2 weeks. Additionally, she has been experiencing swelling, numbness, and tingling in her right hand, especially when she clenches her fist. Occasionally, she also experiences similar symptoms in her arm. Moreover, she always experiences sharp pain in her shoulder and neck. These symptoms have been persisting for the past few months. She has noticed a grinding sensation on the left side of her neck when she attempts to move (more content not included)... Normal [facility] Comment on above: Result Comment: Elec tronically Signed By: Sara Flood\.br\Date and Time Signed: 02/02/24 13:32 EDT\.br\Electronically Co-Signed By: Ruthy Rivers\.br\Date and Time Co-Signed: 02/01/24 11:25 EDT Ambulatory Visit Summaryon 0 01-31-2024 Ambulatory Visit Summary SAVANAH BYERS :1970 Visit Date:01/31/2024 Ambulatory Visit Instructions Your Diagnosis Bipolar I disorder, mild, current or most recent episode depressed, in full remission, with anxious distress Hypertension Central hypothyroidism Adult BMI 28.0-28.9 kg/sq m Overweight Swelling of right hand Paresthesia of hand Encounter for weight loss counseling Cervical spine pain Your Care Team Attending Physician - Sara Flood Primary Care Physician - Sara Flood This Is Your Medications List buPROPion (Wellbutrin SR 150 mg Tab-ER) methylPREDNISolone (Medrol 4 mg Tab) naltrexone (naltrexone 4.5 mg oral capsule) naproxen (naproxen 500 mg Tab) Contact prescribing physician if questions or concerns acetaminophen (Tylenol Extra Strength 500 mg oral tablet) baclofen (baclofen 20 mg Tab) busPIRone (busPIRone 10 mg Tab) calcium carbonate (calcium (as carbonate) 500 mg oral tablet) fluticasone nasal (Flonase 0.05 mg/inh [place]) hydrOXYzine (hydrOXYzine hydrochloride 25 mg Tab) lamotrigine (lamotrigine 200 mg Tab) losartan (losartan 50 mg Tab) multivitamin (Multi Vitamin+) omega-3 polyunsaturated fatty acids ([place]-3 Fish Oil) oxcarbazepine (Trileptal 300 mg Tab) rimegepant (Nurtec ODT 75 mg oral tablet, disintegrating) suvorexant (Belsomra 20 mg oral tablet) Procedures Performed Colonoscopy (08/07/2015), left knee arthroscopy with anterior cruciate ligament reconstruction using bone, patellar tendon, bone allograft (10/06/2014), ACL (anterior cruciate ligament) rupture...., Arthroscopy and biopsy of knee, Injection of nerve root of lumbar spine using fluoroscopic guidance, right great toe surgery, sinus surgery. Discharge Vitals Temperature (Temporal Artery) 36.8 ?C Heart Rate (Peripheral) 70 Respiratory Rate 18 Blood Pressure 140/90 Height 171.5 cm Height 68 in Weight 84.6 kg Weight 186.12 lb BMI 28.76 Medications What How Much When Why Instructions New methylPREDNISolone (Medrol 4 mg Tab) 1 Packets By Mouth As Directed Cervical spine pain Swelling of right hand Overweight Duration: 6 Days as directed on package labeling Pickup at [facility] New naltrexone (naltrexone 4.5 mg oral capsule) 2 Capsules By Mouth Every day Encounter for weight loss counseling Pickup at [facility] Changed buPROPion (Wellbutrin SR 150 mg Tab-ER) 1 Tablets By Mouth Every day Encounter for weight loss counseling Pickup at [facility] Changed naproxen (naproxen 500 mg Tab) 1 Tablets By Mouth 2 times a day Cervical spine pain Overweight Adult BMI 28.0-28.9 kg/sq m take 14 days BID . Pickup at [facility] Unchanged acetaminophen (Tylenol Extra Strength 500 mg oral tablet) 1 Tablets By Mouth Every 6 hours Contact prescribing physician if questions or concerns Unchanged baclofen (baclofen 20 mg Tab) 1 Tablets By Mouth 3 times a day Contact prescribing physician if questions or concerns Unchanged busPIRone (busPIRone 10 mg Tab) By Mouth Every day Contact prescribing physician if questions or concerns Unchanged calcium carbonate (calcium (as carbonate) 500 mg oral tablet) 1 tab By Mouth Every day Contact prescribing physician if questions or concerns Unchanged fluticasone nasal (Flonase 0.05 mg/ inh [place]) 2 Sprays Nasal Inhalation Every day Left otitis media Fluid level behind tympanic membrane of both ears BMI 30.0-30.9,adult each nostril Contact prescribing physician if questions or concerns Unchanged hydrOXYzine (hydrOXYzine hydrochloride 25 mg Tab) 1 Tablets By Mouth As Directed Contact prescribing physician if questions or concerns Unchanged lamotrigine (lamotrigine 200 mg Tab) 2 Tablets By Mouth Every day Contact prescribing physician if questions or concerns Unchanged losartan (losartan 50 mg Tab) 1 Tablets By Mouth 2 times a day Contact prescribing physician if questions or concerns Unchanged multivitamin (Multi Vitamin+) 1 tablet By Mouth Every day Contact prescribing physician if questions or concerns Unchanged omega-3 polyunsaturated fatty acids ([place]-3 Fish Oil) 1 tab By Mouth Every day Contact prescribing physician if questions or concerns Unchanged oxcarbazepine (Trileptal 300 mg Tab) See instructions 1.5 tab(s) Oral Bedtime Contact prescribing physician if questions or concerns Unchanged rimegepant (Nurtec ODT 75 mg oral tablet, disintegrating) Contact prescribing physician if questions or concerns Unchanged suvorexant (Belsomra 20 mg oral tablet) 1 Tablets By Mouth Once a day (at bedtime) g47.0 Contact prescribing physician if questions or concerns Pharmacy Information [facility] [address]: [address] [place] [id number] [phone] Allergies penicillins Vicodin (migraines for 2 weeks) Problems Ongoing - Any problem that you are currently receiving treatment for. Allergic reaction to tattoo ink Bipolar I disorder, mild, c (more content not included)... Normal [facility] Patient Educationon 01-31-20 24 Patient Education Cardiovascular Hypertension, Adult High blood pressure (hypertension) is when the force of blood pumping through the arteries is too strong. The arteries are the blood vessels that carry blood from the heart throughout the body. Hypertension forces the heart to work harder to pump blood and may cause arteries to become narrow or stiff. Untreated or uncontrolled hypertension can lead to a heart attack, heart failure, a stroke, kidney disease, and other problems. A blood pressure reading consists of a higher number over a lower number. Ideally, your blood pressure should be below 120/80. The first ( top ) number is called the systolic pressure. It is a measure of the pressure in your arteries as your heart beats. The second ( bottom ) number is called the diastolic pressure. It is a measure of the pressure in your arteries as the heart relaxes. What are the causes? The exact cause of this condition is not known. There are some conditions that result in high blood pressure. What increases the risk? Certain factors may make you more likely to develop high blood pressure. Some of these risk factors are under your control, including: ? Smoking. ? Not getting enough exercise or physical activity. ? Being overweight. ? Having too much fat, sugar, calories, or salt (sodium) in your diet. ? Drinking too much alcohol. Other risk factors include: ? Having a personal history of heart disease, diabetes, high cholesterol, or kidney disease. ? Stress. ? Having a family history of high blood pressure and high cholesterol. ? Having obstructive sleep apnea. ? Age. The risk increases with age. What are the signs or symptoms? High blood pressure may not cause symptoms. Very high blood pressure (hypertensive crisis) may cause: ? Headache. ? Fast or irregular heartbeats (palpitations). ? Shortness of breath. ? Nosebleed. ? Nausea and vomiting. ? Vision changes. ? Severe chest pain, dizziness, and seizures. How is this diagnosed? This condition is diagnosed by measuring your blood pressure while you are seated, with your arm resting on a flat surface, your legs uncrossed, and your feet flat on the floor. The cuff of the blood pressure monitor will be placed directly against the skin of your upper arm at the level of your heart. Blood pressure should be measured at least twice using the same arm. Certain conditions can cause a difference in blood pressure between your right and left arms. If you have a high blood pressure reading during one visit or you have normal blood pressure with other risk factors, you may be asked to: ? Return on a different day to have your blood pressure checked again. ? Monitor your blood pressure at home for 1 week or longer. If you are diagnosed with hypertension, you may have other blood or imaging tests to help your health care provider understand your overall risk for other conditions. How is this treated? This condition is treated by making healthy lifestyle changes, such as eating healthy foods, exercising more, and reducing your alcohol intake. You may be referred for counseling on a healthy diet and physical activity. Your health care provider may prescribe medicine if lifestyle changes are not enough to get your blood pressure under control and if: ? Your systolic blood pressure is above 130. ? Your diastolic blood pressure is above 80. Your personal target blood pressure may vary depending on your medical conditions, your age, and other factors. Follow these instructions at home: Eating and drinking ? Eat a diet that is high in fiber and potassium, and low in sodium, added sugar, and fat. An example of this eating plan is called the DASH diet. DASH stands for Dietary Approaches to Stop Hypertension. To eat this way: ? Eat plenty of fresh fruits and vegetables. Try to fill one half of your plate at each meal with fruits and vegetables. ? Eat whole grains, such as whole-wheat pasta, brown rice, or whole-grain bread. Fill about one fourth of your plate with whole grains. ? Eat or drink low-fat dairy products, such as skim milk or low-fat yogurt. ? Avoid fatty cuts of meat, processed or cured meats, and poultry with skin. Fill about one fourth of your plate with lean proteins, such as fish, chicken without skin, beans, eggs, or tofu. ? Avoid pre-made and processed foods. These tend to be higher in sodium, added sugar, and fat. ? Reduce your daily sodium intake. Many people with hypertension should eat less than 1,500 mg of sodium a day. ? Do not drink alcohol if: ? Your health care provider tells you not to drink. ? You are , may be , or are planning to become . ? If you drink alcohol: ? Limit how much you have to: ? 0?1 drink a day for women. ? 0?2 drinks a day for men. ? Know how much alcohol is in your drink. In the [place] one drink equals one 12 oz bottle of beer (355 mL), one 5 oz glass of wine (148 mL), or one 1? oz glass (more content not included)... [facility] Coding Summary.on 01-30-2024 Coding Summary. QUUCDyqb40KOb6qZj+PG hl YWQ+KD8RCTSvJ63whUVmtR 4xI0USBUlDJpdlRBHOFTdE DsOkflNhFW5gxNYsOMGe IC8+DB5oGRUlUnraxWNny6 L5oIH6I75ajx7vXUrkrOR7 LSBoGuGftxqod7ghpDs5GJ cuNmluOyBt TVUijB28IWF4wF98Oj66nD QeiTIpd8josAe4AkHsYAAl IKK3pJenXInky9QjYPAoY3 5bxPQhm8W8 POUbuBybxPHoDjXjaON9rL 2aGEtlvfewe5rswfjuIny9 li82fXRzj3U8eZH8B2Mlaf P5MUZkeTNc KteayCUMyL9afxhij5gjag kkVnKtWVYtPQx6AIq3QCWw jXiaEjGsXM69LHQ2OXQtld NnS5VwTEBg xYotGzM9x2B8Hr9HQ9KMWh thY1OEZNNXZZpgbZP+PC90 bj91T3LpNhxgQoi9NSFtNA U7qXU3zM5c ILCxJPplj5U5uGF3U3Qlam Huvb3io8wjQZEbBLnxD49a jUJbg6O7IGIonCA3QJWsxU eaDpOvvO90 Oyc+OSHqdQypv3LrNenuu5 xxy6zwzQa2OariFRHrklSz oDrzEIQ0z2RmAf0eBDHeiN P7wOM7bH2m YcRyJsM3FQnsZ688LsCkaH VlDlkaO45xU1YdoJO+PHRy Xto2NVBswSsmLR3xH2HjLB RpbmctbGVm fVwtFZ0eKZQrufyePJRfyU 3fCPFhD9m4EhTdCuF5ZYrc U4ZwWNJcvfzgDw93aX3rAd KwIlP6BHnf J2SsvlV3LVHfrPHtJFwiFK V4S86ye6A9OGHkFCIsWDI0 iEK4wP3wgNrclrpxmDPvgX sgdmVydGlj WCymAKvbO224HEPbvJxkDw NvZGluZyBEYXRlOiAgMDYv MjUvMjAyNDwvdGQ+PHRkIH N2hWelMPXb jSVeCIftNx8uoXnnxTxeHR 8eXWHggepbQHAsfQ5aWPKl nKCivGvaEG6lITMdbardq9 63PrVzGPO6 HRNjxYHcM0OziM6iGfQnJE DxVEJoU2UupEXtNOvbH647 PQpfGcA5PRRbgcHhE9ArIN FsaWduOiB0 n6M7Ow1Pi0SfusiiF9CsqJ MsZbAuFqlyKDh6G3OsGypb dHI+PK15GDVjPR20XPg0QI I1dRtdHVhi RYArO2KoiB1gKpHpNZNqWH RkOyc+PHRhYmxlIHdpZHRo LDnhFPKkXuFxdZhqZI2jNo 9yZGVyLWNv zHtcnLHgWxBaq7qgCPQfJC apOV8rsVrgE2HjeKX9JTKx f1w0Vu46W24aB8VfiPO+PG AikUU9eZF5 gV6yJoExCuJ0IFaxA346Mj XtqHPeJsdcq7qij9djwHo1 IuA2GRIxcqTogVjuVBE6q8 RoCn89T55i IHdpZHRoPSIxNSUiIHZhbG hvky4wyD7cAh3+PGNvbCB3 pSG5oF6rAaIzWhM7HIfxJ0 49InRvcCIv Uxylr2mre0shwHy2MgLmNY TvwmXyzEcaIQN7t1QuPr29 Y0WfaPruc9YsQmv1ju14zI Pkb0S1kTN8 K4MfBUMiccivyTBqpUyqJI 3pQJEhkalfFXStjN2gVQCj N2k1LuQhTvQ6BPsyC5Dqcj C9BZNtpYGj MWBjtBXCpN4eznkpj7nabq lwNnYsOIKbXRs4GLm9JEHy uDcnQuEhXVU3SpO0FNM5rG YenR7qeSrq pselyF6dPqc+RVN4xMSmgW EYFO5gCswrsLW+PHRkIHN0 fOgrODsiPTSawP1iJECbS4 p3LpZrXsW2 SZxxF6OffpJ0XFQuhDRbKA DmfLNOrU6wqtted5msvcsv OoJzSXPqMKf6ZUg6NARscG duOiBsZWZ0 KrF1ROU7pHFaoZ6qzPfvgy qwvM4eDfd+QmlydGggRGF0 XIt3V7TkDpy4KXXijVyvRW 0ncGFkZGlu Qp6hpNzuqIdpLM6nNTOege wse744GqAgq7vcKCSbfRZf SJziCAW6R93ck8T0NLGhRN LkESZ3eIV2 tQ2zuGgpwwnwqLRgyYgqur RmpLksZEhiXRcgZ695HFOv dPwzElYkLKm3W1EmQgo8HC PpvKdmFH8i qGCxXPfvCy8aiEoolNmmEU 9uYGGehinzc281DxOxe5fs LEVqnAPoFMxbEOR1N40yy4 E3KIUrBBSz LGL9zTJ7mV7mqUvhcabziP VmdDsgdmVydGljYWwtYWxp K656TCKudNdnKqCwcTm0O9 TwSfg4HKYf uLblTQ8ncKHyKEqqNm4jkR wuiIdzRN1kIJBqqlojv741 QdEoh4teOWMimWVsWGtjQA L6C78gm6E3 FUNdVBLsDYC3aMM8iF1wnN lnbjogbGVmdDsgdmVydGlj BOobHJxzG122TRYedAptLc BhdGllbnQg YDkmVJw3H0SyCjkiuXJ+PC 10YUBzJX71mCOzcDWfr0wo zLg1KwOhYGToCJM0tOjkOG jzd3VqXBWm M97lwMQpu4E0UAQutAsuzU WzRzIlvGZ5vP8hCOrktkdu g2xebreiClayl5pwle10oK 08W67dJPxv ZHRoPSIzMCUiIHZhbGlnbj 0rlS2lWo8+FPFkqUJ7wNW7 lR8gLKSkAdV8HRusE297Wr RvcCIvPjxj s4clg9plgRg8ByJ8WQUyyh DvzFbeCHH1s4NeOd97J59q IHdpZHRoPSIyMCUiIHZhbG zyvh3msL9w Ii8+RYFxoXN2wWB8kZ1pHf ZgRtN2ZPhuQ006FgKhuWQr IuctK98dT9RabCZ+PHRyPj a0YWUieTje VF0utGCgVHavWb9vAFI9Dr TiLaHeIQbrS8PdXKSxzssj rjkxiRO9UUGkTDSmzS27La 9udDogMTBw oVWRgG1xudwum7urpncxWj DlQFNkKTf7JTx1PCLjoPqo UxLvESJ7QlU2TJB0vYSlbF 1hbGlnbjog kL7vK5PiEHZsoqfwQc42fZ 9sAgFrOfX6HYenFif+Q0FN UCwgSkVOTklGRVIgQTwvdG Q+PHRkIHN0 yUwiRBebBQIdoA0oUSNzE5 o0EtJgCfX9UCzuD6MdGWIe nwvaGc61vC2aVzDhAlU0LK vpS9XhkiR4 NJTziBWzDJhaQTV6K61vi6 B6IWIsHYIgDKO8hTH5qY5d bGlnbjogbGVmdDsgdmVydG ljYWwtYWxp T797TSQvkZjuLrZqPmQ4Iw J0VaD6F8AiAmw7BOAshNrr PT7xdQOiHWrtNq1utCkoqD lwVF9jBATg qhrfXKVqmR7iEYIoxETbaO nuJV7sTKDjjmwnx206TgCs HNF3VVIluRMjI4OwsJ7jFw AjMDAwMDAw K5BfoYWkEHuoX793BPvjNg X9JCJchdFxE3CqDKBnpZdt BjQ0i4W8Up26XoKEKKEcjx wvdGQ+PHRk RPE8oZuuVUemEAUopW5oSL VhO2m8VuUhLfC7DFujN7Qj GQOlvpuoKg20kC7dIoFnHe I0QHomI3Rg hnX6KULbjNUqFVgpOZV2Q6 6je0U5FGOwFOHkPCQ7rNW0 bY9tkYhnsliomHUftRewqd VydGljYWwt JHtrS341JWEstKjkSpMmfG FsZTwvdGQ+ZGHbFZO8jUso XCmmAHGfqF2wWVBoP8j0Bk IkJeQ0ORno Q1GzJHCflfbdDg77tV5gJq FjMrA2ZVpjL3GmnbA0KGFu eKZkQNnnXDX8D09mw6S5XC MwMDAwMDA7 bRG0gP1kbMzccembcRHfhZ yczcWpvBjmDFifZOdiN402 OIEyrAhzKc41tMXfyGlouu F5K8PhFfmz dHI+FB41IFKiDQ14pHCavO Idl4fgcQd7VlTdBMRmYUD0 hAdzARtkp6YfJTXzG48eiN Cpw5D5OFFu fErhrEEnOcVtpKQ2zT3nGA vkhxynu4vgcmisJfkbf3ne uj56hT90L13fSGmvXRNvPK IzMCUiIHZh bAwiow0zaX9sZc4+PGNvbC D7kHC7hX2oDoFnHaQ8OKch U762RxEnkSRrBqxbw4tdv0 xjcAu0ToQs IPYlrbAduRhtZJL0y4FaUv 10M56nUZezWWObIJRvMWYb DQXyyKtimw5czF2rMp6+PC 5gw1sskm26 xP89oEA+LWHdBWW8yIcgBE qkTQUfyZ5nQUejDvJ4PKHc HmWfrL53xCRxAGocIn4iqX cexHhaHJ2q GIChirhsn608SiTex7qfNI UvnOYkCXfoTZM0Z78tr7Z2 MSYaMMSoTSL8iVR6eE8kzZ lnbjogbGVm dDsgdmVydGljYWwtYWxpZ2 82KSWnrPxsWhDymYDcJ4kp waTWZE2vJrujjLQ+PHRkIH T5eJwyAQaa XKFaiN4vKMSuP5l3XySpWo W0GEudE2UyngZ5TUPsiUHx GFCcjPNIgQ7sfziwt2gsqk ogIzAwMDAw JKh8LIr4VLLwsUvgReYkWV E2ClS1MAE6jLRgjG8awOpv alicxM3tFpo+RklOOjwvdG Q+PHRkIHN0 cLrbETneUEUqzQ3xLJUoL4 j9SpAnXtC2DWsdD0LcbiV5 PVUpaVKsTPDbyXGBgB4oak zba1xjtkos JuFqXCIjSAy9BMv5RWIilE wgKbGrUEL7KdF5TJA6aAFh cV6peVhxohiehE2bHsa+TV JOOjwvdGQ+ ONHeMLY8kMcpONmqODZbfF 2iFKXkG3t5VxNhAtE7TWsp T5IktjA7UOHqsRYoFHPkuZ JAbW2ahdyt o7egbudiMrUwEATvNMx0UR q0LDOijBtoGoKaUSI9RhI5 XQY9uLDzaQ6tbPbotuhdwJ 9wOyc+UGF5 ISH7LX91JT64L7MeZbnzaL FibGU+PHRhYmxlIHdpZHRo NEtzJMWyPyFhnHssHH0gAr 9yZGVyLWNv bGxhcHNlOiBjb (more content not included)... Normal [facility] MA Mamm Screen w/CAD if perf and 3D Bilon 01-25-2024 MA Mamm Screen w/CAD if perf and 3D James Exam Date/Time: 01/19/2024 14:50 EDT Reason for Exam: Z12.31;Screening Report IMPRESSION: BIRADS 1 NEGATIVE, NORMAL INTERVAL FOLLOW-UP Follow-up: 12 MONTH RECALL Density: Scattered tissue. Vascular calcifications: Absent. EXAM: MA Mamm Screen w/CAD if perf and 3D James DATE: 01/19/2024 2:32 PM CLINICAL HISTORY: Screening, Z12.31. COMPARISONS: None available. TECHNIQUE: Routine full-field digital mammograms and 3D breast tomosynthesis were obtained of both breasts. FINDINGS: There are no dominant masses, suspicious microcalcifications, or areas of architectural distortion identified on this baseline study. Dense Breast: No. CAD analysis was performed and used in the interpretation. Board Certified Radiologists. Accredited by the ACR and FDA. MAMMOGRAPHY IS VERY IMPORTANT TO YOUR HEALTH. THE CURRENT [employer] GUIDELINES RECOMMENDS ANNUAL MAMMOGRAPHY BEGINNING AT AGE 40. THIS FACILITY UTILIZES A REMINDER SYSTEM TO ENSURE ALL PATIENTS RECEIVE REMINDER NOTIFICATIONS AT THE APPROPRIATE TIME BASED ON THE RECOMMENDATIONS OF THIS EXAM. Report Ordering Provider: Sara Green FINAL REPORT Dictated: 01/25/2024 2:20 pm Ji Saunders MD Signed (Electronic Signature): 01/25/2024 2:20 pm Signed by: Ji Saunders MD Transcribed by: NOREEN Technologist: [facility] Assessment: BI-RADS Category 1-Negative Recommendation: Normal interval follow-up Normal [facility] Consent for Treatmenton 01-05 Consent for Treatment [id number] 4060 [id number]#1.0 0TIFF Normal [facility] CBC w/ Auto Diffon Basophil Absolute 0.0 E9/L Normal 0.0-0.2 [facility] Comment on above: Performed By: #### 2 669174, [id number], 4294180, 7474278, 4079305, 721049914, 276962898, 2147473 ####[facility] [address] [place] [address] Basophils/100 WBC (Bld) 0.8 % Normal 0.0-2.0 [facility] Comment on above: Performed By: #### 2 438263, 55077159, 2632230, 5652825, 9701706, 710025116, 756662728, 2355170 ####[facility] [address] [place] [address] Eos Absolute 0.2 E9/L Normal 0.0-0.5 [facility] Comment on above: Performed By: #### 2 211529, 59264330, 2960144, 2001678, 8461467, 338567690, 933589878, 6199218 ####[address] [address] Eosinophils/100 WBC (Bld) 3.7 % Normal 0.0-8.0 [facility] Comment on above: Performed By: #### 2 771028, 54239652, 3949284, 6047230, 3955028, 336301558, 541302032, 6657002 ####[address] [place] [address] Erythrocyte distribution width (RBC) [Ratio] 13.8 % Normal 10.9-14.2 [facility] Comment on above: Performed By: #### 2 757718, 12670877, 8121869, 0901876, 3188862, 384159324, 595067293, 0428840 ####[facility] [address] [place] [address] Hematocrit (Bld) [Volume fraction] 39.0 % Normal 34.0-46.0 [facility] Comment on above: Performed By: #### 2 891706, 80120931, 3895260, 4436992, 5562561, 604662229, 587538672, 0176366 ####[address] [place] [address] Hemoglobin (Bld) [Mass/Vol] 13.2 g/dL Normal 12.0-16.0 [facility] Comment on above: Performed By: #### 2 266739, 46104600, 9233864, 3554870, 3268817, 426010912, 226788903, 9809576 ####[address] [address] Lymph Absolute 2.5 E9/L Normal 1.0-4.0 [facility] Comment on above: Performed By: #### 2 167755, 83599650, 5965582, 4883300, 8408592, 791847815, 855993465, 1014617 ####[address] [address] Lymphocytes/100 WBC (Bld) 43.2 % Normal 14.0-50.0 [facility] Comment on above: Performed By: #### 2 390040, 73576109, 0715866, 8237325, 7707458, 136844258, 117942063, 9562872 ####[facility] [address] [place] [address] MCH (RBC) [Entitic mass] 31.5 pg Normal 27.0-34.0 [facility] Comment on above: Performed By: #### 2 310846, 47864525, 2875555, 7237844, 2277838, 939045204, 097094843, 2671519 ####[address] [address] MCHC (RBC) [Mass/Vol] 33.5 g/dL Normal 31.4-36.0 [facility] Comment on above: Performed By: #### 2 113607, 13909362, 4122091, 2902779, 8391567, 952554048, 421220020, 2482089 ####[facility] [address] [place] [address] MCV (RBC) [Entitic vol] 94.0 fL Normal 80.0-100.0 [facility] Comment on above: Performed By: #### 2 921022, 61042159, 2571831, 4874607, 8996827, 244147195, 620866657, 6161999 ####[facility] [address] [place] [address] Price Absolute 0.5 E9/L Normal 0.2-1.0 [facility] Comment on above: Performed By: #### 2 613208, 82734782, 7023311, 6583050, 2575647, 618971104, 940156223, 3279420 ####[address] [place] [address] Monocytes/100 WBC (Bld) 8.0 % Normal 4.0-14.0 [facility] Comment on above: Performed By: #### 2 897069, 11516673, 1051438, 2903826, 9882668, 427654538, 717980324, 5992150 ####[facility] [address] [place] [address] Neutro Absolute 2.6 E9/L Normal 2.0-7.5 [facility] Comment on above: Performed By: #### 2 941718, 88031546, 5036010, 8570259, 2139365, 407104235, 830823447, 8273083 ####[facility] [address] [place] [address] Neutro Auto 44.3 % Normal 36.0-75.0 [facility] Comment on above: Performed By: #### 2 609936, 05462700, 5834784, 1263764, 4621034, 918367262, 062465617, 8377945 ####[facility] [address] [place] [address] Platelet 305.0 E9/L Normal 150.0-500.0 [facility] Comment on above: Performed By: #### 2 881308, 28688030, 2314646, 9024928, 3156862, 233267158, 446702215, 5020238 ####[facility] [address] [place] [address] Platelet mean volume (Bld) [Entitic vol] 7.3 fL Normal 6.4-10.8 [facility] Comment on above: Performed By: #### 2 858428, 40256264, 3073833, 7648039, 1087303, 371094092, 090723226, 9500934 ####[address] [address] RBC 4.2 E12/L Low 4.3-5.9 [facility] Comment on above: Performed By: #### 2 367295, 51036846, 4376208, 5939133, 3105135, 752743162, 875078335, 0330930 ####[address] [place] [address] WBC 5.8 E9/L Normal 4.0-11.0 [facility] Comment on above: Performed By: #### 2 458132, 18645558, 7322954, 0004624, 9033113, 771009336, 418420922, 8705846 ####[address] [place] [address] CHEMISTRYOrdered By: SYSTEM SYSTEM on 09-28-2023 Albumin [Mass/Vol] 4.6 g/dL Normal 3.3 - 5.0 gm/dL [facility] Albumin/Globulin [Mass ratio] 1.6 {ratio} Normal 1.1 - 2.2 [facility] Alk Phos 96 [iU]/d Normal 21 - 98 Int._Unit/L [facility] ALT 29 [iU]/d Normal 6 - 46 Int._Unit/L [facility] Anion gap [Moles/Vol] 11 mmol/L Normal 6 - 16 mEq/L R emisol Chem AST 29 [iU]/d Normal 5 - 43 Int._Unit/L [facility] Bili Total 0.6 mg/dL Normal 0.0 - 1.1 mg/dL [facility] Calcium [Mass/Vol] 10.6 mg/dL Normal 8.9 - 11. 1 mg/dL [facility] Chloride [Moles/Vol] 105 mmol/L Normal 101 - 1 11 mmol/L [facility] Cholesterol [Mass/Vol] 238 mg/dL High 120 - 200 mg/dL [facility] Cholesterol in HDL [Mass/Vol] 53 mg/dL Invalid Interpretation Code [facility] Comment on above: Result Comment: '>= 60 LOW RISK' '<= 40 HIGH RISK' Cholesterol in LDL [Mass/Vol] 158 mg/dL High <=129mg/dL [facility] Cholesterol in VLDL [Mass/Vol] 29 mg/dL Normal 7 - 40 mg/dL [facility] CO2 [Moles/Vol] 30 mmol/L Normal 21 - 31 mmol/L [facility] Creatinine [Mass/Vol] 0.9 mg/dL Normal 0.5 - 1.3 mg/dL [facility] eGFR 77 mL/min/1.73 m2 Normal >=59mL/min /1 .73 m2 [facility] Free T4 [Mass/Vol] 0.48 ng/dL Low 0.58 - 1. 64 ng/dL [facility] Globulin (S) [Mass/Vol] 2.8 g/dL Normal 1.4 - 4.0 gm/dL [facility] Glucose [Mass/Vol] 91 mg/dL Normal 55 - 199 mg/dL [facility] Potassium [Moles/Vol] 4.5 mmol/L Normal 3.5 - 5.3 mmol/L [facility] Protein [Mass/Vol] 7.4 g/dL Normal 6.0 - 7.8 gm/dL [facility] Sodium [Moles/Vol] 141 mmol/L Normal 135 - 145 mmol/L [facility] Triglyceride [Mass/Vol] 143 mg/dL Normal <=149mg/dL [facility] TSH Qn 1.43 m[IU]/L Normal 0.34 - 5.60 mcIU/mL [facility] Urea nitrogen [Mass/Vol] 16 mg/dL Normal 5 - 21 mg/dL [facility] Urea nitrogen/Creatinine [Mass ratio] 18 mg/mg Normal 10 - 20 [facility] Vitamin D 25 Hydroxy 52.5 ng/mL Normal 30.0 - 100.0 ng/mL [facility] CHEMISTRYOrdered By: Rylee Hernadez on 09-28-2023 HbA1c (Bld) [Mass fraction] 5.5 % Normal <=5.9% [facility] [place] ChemAutoSS CMPon 09-28-2023 Albumin [Mass/Vol] 4.6 g/dL Normal 3.3-5.0 [facility] Comment on above: Performed By: #### 2 044112, 83757781, 5645470, 8011537, 2682412, 558049124, 541807173, 0790014 ####[facility] [address] [place] [address] Albumin/Globulin [Mass ratio] 1.6 {ratio} Normal 1.1-2.2 [facility] Comment on above: Performed By: #### 2 022346, 04440230, 6941128, 7476359, 3908709, 858489230, 933408778, 6016657 ####[facility] [address] [place] [address] Alk Phos 96 Int._Unit/L Normal 21-98 [facility] Comment on above: Performed By: #### 2 097278, 31160617, 1131333, 1541186, 9367670, 243408455, 352231169, 6379662 ####[facility] [address] [place] [address] ALT 29 Int._Unit/L Normal 6-46 [facility] Comment on above: Performed By: #### 2 672429, 01898237, 9951321, 1482198, 2228680, 372757728, 694297108, 2706374 ####[facility] [address] [place] [address] Anion gap [Moles/Vol] 11 mmol/L Normal 6-16 [facility] Comment on above: Performed By: #### 2 860556, 95130241, 1798196, 3905292, 1262498, 934425213, 973302111, 1637468 ####[facility] [address] [place] [address] AST 29 Int._Unit/L Normal 5-43 [facility] Comment on above: Performed By: #### 2 316256, 25835418, 2063747, 2932375, 3460318, 585870298, 731689649, 5555328 ####[facility] [address] [place] [address] Bili Total 0.6 mg/dL Normal 0.0-1.1 [facility] Comment on above: Performed By: #### 2 353428, 74490903, 3130933, 4355379, 0606817, 311013098, 304962235, 3460467 ####[facility] [address] [place] [address] BUN/Creat Ratio 18 No Units Normal 10-20 [facility] Comment on above: Performed By: #### 2 206758, 93324658, 8949055, 9276252, 0034490, 610662413, 068317766, 0746483 ####[facility] [address] [place] [address] Calcium [Mass/Vol] 10.6 mg/dL Normal 8.9-11.1 [facility] Comment on above: Performed By: #### 2 044328, 89364318, 4374728, 1750481, 3282371, 896464766, 011602395, 4911382 ####[facility] [address] [place] [address] Chloride [Moles/Vol] 105 mmol/L Normal 101-111 [facility] Comment on above: Performed By: #### 2 721985, 82810338, 2426131, 6846742, 9249012, 576964045, 756399601, 6786203 ####[facility] [address] [place] [address] CO2 [Moles/Vol] 30 mmol/L Normal 21-31 [facility] Comment on above: Performed By: #### 2 440625, 32634227, 7954236, 2346234, 1321652, 657789348, 226431976, 4264660 ####[facility] [address] [place] [address] Creatinine [Mass/Vol] 0.9 mg/dL Normal 0.5-1.3 [facility] Comment on above: Performed By: #### 2 005721, 52797923, 5626383, 7171234, 6744951, 015157552, 976437554, 7255841 ####[facility] [address] [place] [address] Globulin (S) [Mass/Vol] 2.8 g/dL Normal 1.4-4.0 [facility] Comment on above: Performed By: #### 2 398847, 32462571, 6454732, 0017228, 7292053, 949015632, 326972691, 5394927 ####[facility] [address] [place] [address] Glucose [Mass/Vol] 91 mg/dL Normal 55-199 [facility] Comment on above: Performed By: #### 2 822484, 35070365, 8710883, 3398740, 5704420, 120408972, 792040857, 5605218 ####[facility] [address] [place] [address] Potassium [Moles/Vol] 4.5 mmol/L Normal 3.5-5.3 [facility] Comment on above: Performed By: #### 2 756731, 22194306, 0086761, 8440654, 9837573, 434300759, 027268702, 0223948 ####[facility] [address] [place] [address] Protein [Mass/Vol] 7.4 g/dL Normal 6.0-7.8 [facility] Comment on above: Performed By: #### 2 819498, 48276271, 4837703, 9804392, 9817360, 277176705, 207498629, 6189515 ####[facility] [address] [place] [address] Sodium [Moles/Vol] 141 mmol/L Normal 135-145 [facility] Comment on above: Performed By: #### 2 477173, 74259066, 1189108, 4338221, 3083243, 219147111, 886690947, 8623775 ####[facility] [address] [place] [address] Urea nitrogen [Mass/Vol] 16 mg/dL Normal 5-21 [facility] Comment on above: Performed By: #### 2 215342, 40374064, 5888788, 2048857, 9952149, 824904771, 277141956, 2570244 ####[facility] [address] [place] [address] Consent for Treatmenton 09-08 Consent for Treatment [id number]#1.0 0TIFF Normal [facility] Free T4on 09-28-2023 Free T4 [Mass/Vol] 0.48 ng/dL Low 0.58-1.64 [facility] Comment on above: Performed By: #### 2 202820, 55314877, 2137958, 3208364, 7975897, 005945907, 563719816, 9534518 ####[facility] [address] [place] [address] HEMATOLOGYOrdered By: SYSTEM SYSTEM on 09-28-2023 Basophil Absolute 0.0 E9/L Normal 0.0 - 0.2 E9/L [facility] Basophils/100 WBC (Bld) 0.8 % Normal 0.0 - 2.0 % [facility] Eos Absolute 0.2 E9/L Normal 0.0 - 0.5 E9/L [facility] Eosinophils/100 WBC (Bld) 3.7 % Normal 0.0 - 8.0 % [facility] Erythrocyte distribution width (RBC) [Ratio] 13.8 % Normal 10.9 - 14.2 % [facility] Hematocrit (Bld) [Volume fraction] 39.0 % Normal 34.0 - 46.0 % [facility] Hemoglobin (Bld) [Mass/Vol] 13.2 g/dL Normal 12.0 - 16.0 gm/dL [facility] Lymph Absolute 2.5 E9/L Normal 1.0 - 4.0 E9/L [facility] Lymphocytes/100 WBC (Bld) 43.2 % Normal 14.0 - 50.0 % [facility] MCH (RBC) [Entitic mass] 31.5 pg Normal 27.0 - 34.0 pg [facility] MCHC (RBC) [Mass/Vol] 33.5 g/dL Normal 31.4 - 36.0 gm/dL [facility] MCV (RBC) [Entitic vol] 94.0 fL Normal 80.0 - 100.0 fL [facility] Price Absolute 0.5 E9/L Normal 0.2 - 1.0 E9/L [facility] Monocytes/100 WBC (Bld) 8.0 % Normal 4.0 - 14.0 % [facility] Neutro Absolute 2.6 E9/L Normal 2.0 - 7.5 E9/L [facility] Neutro Auto 44.3 % Normal 36.0 - 75.0 % [facility] Platelet 305.0 E9/L Normal 150.0 - 500.0 E9/L [facility] Platelet mean volume (Bld) [Entitic vol] 7.3 fL Normal 6.4 - 10.8 fL [facility] RBC 4.2 E12/L Low 4.3 - 5.9 E12/L [facility] WBC 5.8 E9/L Normal 4.0 - 11.0 E9/L [facility] [id number] 02-22-2024 HbA1c (Bld) [Mass fraction] 5.5 % Normal <=5.9 [facility] Comment on above: Performed By: #### 2 143416, 13857382, 4009488, 4585086, 5525578, 718660641, 013486637, 5628790 ####[facility] [address] [place] [address] Lipid Panelon 09-28-2023 Cholesterol [Mass/Vol] 238 mg/dL High 120-200 [facility] Comment on above: Performed By: #### 2 551130, 23161001, 5439923, 9690191, 8667233, 615521335, 094445191, 8151664 ####[facility] [address] [place] [address] Cholesterol in HDL [Mass/Vol] 53 mg/dL Invalid Interpretation Code [facility] Comment on above: Result Comment: '>= 60 LOW RISK' '<= 40 HIGH RISK' Performed By: #### 2 381896, 13074825, 5861744, 1090006, 3363977, 092257923, 051597982, 4276041 ####[facility] [address] [place] [address] Cholesterol in LDL [Mass/Vol] 158 mg/dL High <=129 [facility] Comment on above: Performed By: #### 2 194576, 99025466, 2845359, 4896875, 6542275, 982386053, 950216719, 5838316 ####[facility] [address] [place] [address] Cholesterol in VLDL [Mass/Vol] 29 mg/dL Normal 7-40 [facility] Comment on above: Performed By: #### 2 341690, 85345968, 6706726, 4322572, 9431393, 624946497, 385745038, 0485221 ####[facility] [address] [place] [address] Triglyceride [Mass/Vol] 143 mg/dL Normal <=149 [facility] Comment on above: Performed By: #### 2 016164, 95399602, 7978847, 6202185, 2825274, 540216088, 411670571, 2217337 ####[facility] [id number] [place] [address] TSHon 09-28-2023 TSH Qn 1.43 m[IU]/L Normal 0.34-5.60 [facility] Comment on above: Performed By: #### 2 [id number] ####[facility] [address] [place] [address] Vitamin D 25 Hydroxyon 09-28 Vitamin D 25 Hydroxy 52.5 ng/mL Normal 30.0-100.0 [facility] Comment on above: Performed By: #### 2 [id number] ####[facility] [address] [place] [address] eGFRon 09-28-2023 eGFR 77 mL/min/1.73 m2 Normal >=59 [facility] Comment on above: Order Comment: Order added by Discern Expert. Performed By: #### 2 [id number] ####[facility] [address] [place] [address] XR Foot - left 3 Viewson Imaging Result: 09-12-2023: Left foot x-rays, weightbearing AP/MO/LAT views, obtained today shows: no visible sign of any pathology on all three views left 2nd toe: No fracture, stress fracture, periosteal reaction, gas, foreign body, infection, arthritis, tumor, impaction or cartilage damage special attention also given to the 2nd MPJ and surrounding anatomy. [facility] Radiology Study observation (narrative) [facility] Family Medicine Office/Clini c Noteon 09-06-2023 Family Medicine Office/Clinic Note Chief Complaint cough HPI Staff Reason for Visit: Cough for 2 wks How lon wks Symptoms: chest congestion, non productive cough OTC/Rx meds: Delsum at night Depression: bipolar, screening not required CRIS: N/a Last Labs done: 01/17/2023, 0.40 TSH Covid Vaccine: No Flu Vaccine: No Smoker: Current Pap (21-64yo): Due colonoscopy/cologuard (45-75yo): Due in 2 years Mammogram (qyr 45-54, q2yrs 55-85): Due History of Present Illness recent chart review 08/17-recent tattoo infection vs allergic reaction Today - Pt is 53 years old and presents with continued cough sx Pt reports symptoms started on 2 weeks Pt reports they are experiencing: Pt denies CP, SOB, wheezing, chest tightness, fever, chills, body aches, ++cough, congestion, runny nose, sinus pressure, sore throat, + ear pain/pressure, + changes in taste/smell/appetite, n/v/d, abd pain, MILES, body aches, fatigue, urinary changes, or dizziness at this time. negative covid test at home Pt denies any known sick contacts, COVID+ case or recent travel at this time Pt has tried OTC remedies including: smoker: no Pt denies Hx of allergies, asthma, COPD, DM, CVD, CKD, HTN Hx of deviated septum/sinus surgeries: YES years ago Pt is/is fully vaccinated against COVID. Physical Exam Vitals & Measurements HR: 92(Peripheral) RR: 18 BP: 138/86 SpO2: 97% HT: 68 in HT: 171.5 cm WT: 86.3 kg WT: 189.86 lb BMI: 29.34 General: alert, no acute distress, well appearing, _pleasant Skin: warm, dry, intact Neck: Trachea midline, no adenopathy, no tenderness, no palpable thyroid Eye: normal conjunctiva, sclera clear, _PERRLA ENMT: TM's clear bulging R>L, oral mucosa moist, + injection pharyngeal erythema , no exudate, normal dentition Cardiovascular: regular rate and rhythm, normal peripheral perfusion, no edema Respiratory: Lungs CTA, respirations non labored, coarse cough noted Chest wall: no deformity, nontender Neurological: oriented x 4, LOC appropriate for age, CN II-XII intact, motor strength equal & normal bilaterally, sensation equal & normal bilaterally, speech normal Assessment/Plan 1. Bronchitis (J40: Bronchitis, not specified as acute or chronic) Reviewed with patient that physical exam and symptoms are consistent with a viral infection. Discussed antibiotics unfortunately do not treat viral illnesses, it will take time to run its course. The first 3-5 days of symptoms are typically the worst (fever, body aches, etc), with cold symptoms lasting 7-14 days. Encouraged fluids to keep secretions thin. Rest. Take Tylenol/Ibuprofen for pain/fevers as needed, may need to alternate. May use Dayquil or similar for symptoms. Recommended using cool-mist humidifier in room, nettipot, coughing/sneezing into elbow, frequent and thorough hand hygiene. Encouraged to seek re-evaluation with PCP if symptoms persist beyond 14 days without any improvement, and if any fevers above 101 develop, as could have a secondary bacterial infection requiring antibiotics. Patient and/or parent verbalized understanding of treatment plan. Work/school note provided. Will treat with prednisone and benzonatate 200 mg TID ? Congestion: o mucinex D (pseudoephedrine and guaifenesin) ? wheezing: oPrednisone 10 mg taper ordered today 2. Eustachian tube disorder (H69.90: Unspecified Eustachian tube disorder, unspecified ear) Encouraged decongestant chewing gum and nasal sprays when needed I did encourage Sumter pot use or saline rinsing which she has done during her last sinus surgery no indication for following up with ENT needed at this time 3. Allergic reaction to tattoo ink (T78.49XS: Other allergy, sequela) This is completely resolved tattoo is well-healed and she has since followed up with no additional issues 4. BMI 29.0-29.9,adult (Z68.29: Body mass index [BMI] 29.0-29.9, adult) The standard range for ages 18 and older is >=18.5 and < 25 kg/m2. Your BMI today was above this range, this falls in the overweight to obese category and there are medical benefits to weight loss. We can offer counselling, referral, and/or medical support in addressing this problem. Your BMI and weight management will be followed at subsequent visits. 5. Overweight (E66.3: Overweight) Reviewed importance of making a lifestyle change regarding dietary choices. Discussed goals. Encouraged routine cardio exercise with Goal: 3-5x/week for 30-45 minutes. Start out slow and increase to achieve your goals. Avoid late night snacking, do not skip breakfast and monitor cooking habits/avoid fast food and fried/fatty foods. Will monitor for progress. Total time spent preparing the chart, conducting of the encounter with the patient and family and time spent documenting, reviewing, and ordering tests was _Total time spent 30 minutes with the patient. she will follow-up with me every 6 months and in 2 to 4 weeks if cough does not resolve Portions of this record may have been created with voice recognition qiana (more content not included)... Normal [facility] Comment on above: Result Comment: Elec tronically Signed By: Sara Flood\.br\Date and Time Signed: 09/06/23 10:59 EST Ambulatory Visit Summaryon 0 08-31-2023 Ambulatory Visit Summary SAVANAH BYERS :1970 Visit Date:08/31/2023 Ambulatory Visit Instructions Your Diagnosis BMI 29.0-29.9,adult Bronchitis Eustachian tube disorder Allergic reaction to tattoo ink Your Care Team Attending Physician - Sara Flood Primary Care Physician - Sara Flood This Is Your Medications List acetaminophen (Tylenol Extra Strength 500 mg oral tablet) baclofen (baclofen 20 mg Tab) benzonatate (benzonatate 200 mg oral capsule) betamethasone topical (betamethasone Top valerate 0.1% Oint) buPROPion (Wellbutrin SR 150 mg Tab-ER) busPIRone (busPIRone 10 mg Tab) fluticasone nasal (Flonase 0.05 mg/inh [place]) hydrOXYzine (hydrOXYzine hydrochloride 25 mg Tab) lamotrigine (lamotrigine 200 mg Tab) losartan (losartan 25 mg Tab) lurasidone (Latuda 40 mg oral tablet) naproxen (naproxen sodium 220 mg Tab) oxcarbazepine (Trileptal 300 mg Tab) predniSONE (predniSONE 10 mg Tab) rimegepant (Nurtec ODT 75 mg oral tablet, disintegrating) suvorexant (Belsomra 20 mg oral tablet) Procedures Performed Colonoscopy (08/07/2015), left knee arthroscopy with anterior cruciate ligament reconstruction using bone, patellar tendon, bone allograft (10/06/2014), ACL (anterior cruciate ligament) rupture...., Arthroscopy and biopsy of knee, Injection of nerve root of lumbar spine using fluoroscopic guidance, right great toe surgery, sinus surgery. Discharge Vitals Heart Rate (Peripheral) 92 Respiratory Rate 18 Blood Pressure 138/86 Height 171.5 cm Height 68 in Weight 86.3 kg Weight 189.86 lb BMI 29.34 What to do next Scheduled Follow-Up Appointments Monday 11:00 AM EDT With: Sara Flood Where: [facility] Primary Care Normal [facility] Patient Educationon 08-31-19 Patient Education ENT Eustachian Tube Dysfunction Eustachian tube dysfunction refers to a condition in which a blockage develops in the narrow passage that connects the middle ear to the back of the nose (eustachian tube). The eustachian tube regulates air pressure in the middle ear by letting air move between the ear and nose. It also helps to drain fluid from the middle ear space. Eustachian tube dysfunction can affect one or both ears. When the eustachian tube does not function properly, air pressure, fluid, or both can build up in the middle ear. What are the causes? This condition occurs when the eustachian tube becomes blocked or cannot open normally. Common causes of this condition include: ? Ear infections. ? Colds and other infections that affect the nose, mouth, and throat (upper respiratory tract). ? Allergies. ? Irritation from cigarette smoke. ? Irritation from stomach acid coming up into the esophagus (gastroesophageal reflux). The esophagus is the part of the body that moves food from the mouth to the stomach. ? Sudden changes in air pressure, such as from descending in an airplane or scuba diving. ? Abnormal growths in the nose or throat, such as: ? Growths that line the nose (nasal polyps). ? Abnormal growth of cells (tumors). ? Enlarged tissue at the back of the throat (adenoids). What increases the risk? You are more likely to develop this condition if: ? You smoke. ? You are overweight. ? You are a child who has: ? Certain defects of the mouth, such as cleft palate. ? Large tonsils or adenoids. What are the signs or symptoms? Common symptoms of this condition include: ? A feeling of fullness in the ear. ? Ear pain. ? Clicking or popping noises in the ear. ? Ringing in the ear (tinnitus). ? Hearing loss. ? Loss of balance. ? Dizziness. Symptoms may get worse when the air pressure around you changes, such as when you travel to an area of high elevation, fly on an airplane, or go scuba diving. How is this diagnosed? This condition may be diagnosed based on: ? Your symptoms. ? A physical exam of your ears, nose, and throat. ? Tests, such as those that measure: ? The movement of your eardrum. ? Your hearing (audiometry). How is this treated? Treatment depends on the cause and severity of your condition. ? In mild cases, you may relieve your symptoms by moving air into your ears. This is called popping the ears. ? In more severe cases, or if you have symptoms of fluid in your ears, treatment may include: ? Medicines to relieve congestion (decongestants). ? Medicines that treat allergies (antihistamines). ? Nasal sprays or ear drops that contain medicines that reduce swelling (steroids). ? A procedure to drain the fluid in your eardrum. In this procedure, a small tube may be placed in the eardrum to: ? Drain the fluid. ? Restore the air in the middle ear space. ? A procedure to insert a balloon device through the nose to inflate the opening of the eustachian tube (balloon dilation). Follow these instructions at home: Lifestyle ? Do not do any of the following until your health care provider approves: ? Travel to high altitudes. ? Fly in airplanes. ? Work in a pressurized cabin or room. ? Scuba dive. ? Do not use any products that contain nicotine or tobacco. These products include cigarettes, chewing tobacco, and vaping devices, such as e-cigarettes. If you need help quitting, ask your health care provider. ? Keep your ears dry. Wear fitted earplugs during showering and bathing. Dry your ears completely after. General instructions ? Take vmlb-cat-ygbjzwp and prescription medicines only as told by your health care provider. ? Use techniques to help pop your ears as recommended by your health care provider. These may include: ? Chewing gum. ? Yawning. ? Frequent, forceful swallowing. ? Closing your mouth, holding your nose closed, and gently blowing as if you are trying to blow air out of your nose. ? Keep all follow-up visits. This is important. Contact a health care provider if: ? Your symptoms do not go away after treatment. ? Your symptoms come back after treatment. ? You are unable to pop your ears. ? You have: ? A fever. ? Pain in your ear. ? Pain in your head or neck. ? Fluid draining from your ear. ? Your hearing suddenly changes. ? You become very dizzy. ? You lose your balance. Get help right away if: ? You have a sudden, severe increase in any of your symptoms. Summary ? Eustachian tube dysfunction refers to a condition in which a blockage develops in the eustachian tube. ? It can be caused by ear infections, allergies, inhaled irritants, or abnormal growths in the nose or throat. ? Symptoms may include ear pain or fullness, hearing loss, or ringing in the ears. ? Mild cases are treated with techniques to unblock the ears, such as yawning or chewing gum. ? More severe cases are treated w (more content not included)... Normal [facility] Provider Letteron 08-29-2023 Provider Letter August 29, 2023 SAVANAH BYERS [address] [place] [id number] : 1970 Dear Savanah Byers , We have been trying to reach you with no success. It is important that you return our call upon receiving this letter. Also, at the time of your call, please provide us with your current information. Aimee also said to try using vasoline only or just cover it without anything on it. Thank you for your prompt attention to this matter. Sincerely, [facility] [address] [place] [address], [place] [address] Normal [facility] Family Medicine Office/Clini c Noteon 08-23-2023 Family Medicine Office/Clinic Note Chief Complaint possible skin infection HPI Staff Reason for Visit: Possible skin infection How lon days Arm: left forearm Pain: 5 Feels Like: burning Injury: New tattoo Depression: Bipolar, screening not required CRIS: N/A Last Labs done: TSH on 01/17/2023 @ 0.40 Covid Vaccine: No Flu Vaccine: No Smoker: Former Pap (21-64yo): Due colonoscopy/cologuard (45-75yo): Due in 23 months Mammogram (qyr 45-54, q2yrs 55-85): Due, ordered on 08/02/2023 History of Present Illness I have reviewed and discussed the HPI (staff) with the patient today. Information was verified and is correct. Additional information provided if needed. Savanah Byers is a 53-year-old patient who presents for a possible infected tattoo or reaction. Allergic reaction The patient developed white blisters on her forearm post-shower. She allowed it to air dry and did not wash her forearm. She considered covering it during showers. No pus has been observed, but she reports severe burning sensation. Initially, she applied a cream given to her, but discontinued its use due to persistent burning since Monday08/14/2023. She prepared homemade pretzels, ensuring hand hygiene before applying a salve to her tattoo. After approximately 5 minutes post-application, she experienced a burning sensation. She attempted to alleviate the discomfort by washing the area, patting it dry, and reapplying the salve. However, the burning sensation recurred after another 5 minutes. She decided not to interfere further and left it overnight. The following morning, she cleaned the area and applied Aquaphor. She inquired about the possibility of wrapping the affected area in light gauze due to discomfort from contact with her clothing. She was advised to apply the gauze and remove it upon reaching home. She wore a long-sleeved shirt and a sweatshirt between Monday and Monday. She speculated whether the erythema was due to trapped moisture or a reaction to the given salve. She has 6 tattoos and is experiencing a reaction for the first time. She discontinued the use of her previous ointment and switched to Aquaphor, but the area has become increasingly erythematous. In the past, she used Dial antibacterial soap for her tattoos without any adverse reactions. Currently, she is using Dial antibacterial soap again, but reports a mild burning sensation. Her symptoms have been going on for 4 days. She denies experiencing chest pain or dyspnea. Weight loss She saw Kia inquired about diet medication and was recommended to use any option other than Adipex. Her morning dietary intake includes a protein shake, yogurt, and granola bar, but she does not consume lunch. She attends [employer] and likes rowing, which is tolerable with her back condition. She plans to work in a setting where heavy lifting is required. Influenza infection She has not done her laboratories as she had influenza last week. Review of Systems The pertinent positive and negative findings are as noted in the HPI. Physical Exam Vitals & Measurements T: 36.7 ?C(Oral) HR: 88(Peripheral) RR: 18 BP: 142/100 SpO2: 97% HT: 68 in HT: 171.5 cm WT: 89.1 kg WT: 196.02 lb BMI: 30.29 General: alert, no acute distress, _well appearing, _pleasant ENMT: oral mucosa moist, no pharyngeal erythema or exudate Cardiovascular: regular rate and rhythm, normal peripheral perfusion, noedema Respiratory: I did not listen to her lungs, but she is having no respiratory distress. Normal effort and normal respiratory rate. Extremities: no deformity, no trauma Neurological: oriented x 4, LOC appropriate for age, CN II-XII intact, motor strength equal & normal bilaterally, sensation equal & normal bilaterally, speech normal Integumentary: New tattoo noted to the left forearm with some fine irregularities noted to certain different colors including the white color on the tattoo. There is mild erythema surrounding the external border, slight raised irritation noted. No vesicles, no surrounding edema. Mild tenderness to palpation. No purulent drainage noted. Assessment/Plan 1. Allergic reaction to tattoo ink (T78.49XA: Other allergy, initial encounter) It does not look infective; it is a skin reaction. Cream has been sent to the pharmacy. Prescribed betamethasone; Valerate 0.1% ointment twice a day for 1 week and cover with Tegaderm or Telfa. Advised to expose the affected area to air at home, covering it only during activities that may cause irritation. Advised she can use the Dial once a day and dilute with soapy water and then rinse with water. Recommended to use Aquaphor or Vaseline for moisture. Advised to closely monitor for the next 3-5 days. Advised to contact me if symptoms persist; If there is any evidence of infection such as arm edema, fever, erythema starts streaking up her arm then we would need to start antibiotic right away. While topical antibiotics are typically effective, deeper infections may require oral antibiotics. 2. Obesity ( (more content not included)... Normal [facility] Comment on above: Result Comment: Elec tronically Signed By: Sara Flood\.br\Date and Time Signed: 08/23/23 01:51 EST\.br\Electronically Co-Signed By: Dena Royal\.br\Date and Time Co-Signed: 08/17/23 17:42 EST Patient Educationon 08-17-19 Patient Education Dermatology Contact Dermatitis Dermatitis is redness, soreness, and swelling (inflammation) of the skin. Contact dermatitis is a reaction to certain substances that touch the skin. Many different substances can cause contact dermatitis. There are two types of contact dermatitis: ? Irritant contact dermatitis. This type is caused by something that irritates your skin, such as having dry hands from washing them too often with soap. This type does not require previous exposure to the substance for a reaction to occur. This is the most common type. ? Allergic contact dermatitis. This type is caused by a substance that you are allergic to, such as poison darryl. This type occurs when you have been exposed to the substance (allergen) and develop a sensitivity to it. Dermatitis may develop soon after your first exposure to the allergen, or it may not develop until the next time you are exposed and every time thereafter. What are the causes? Irritant contact dermatitis is most commonly caused by exposure to: ? Makeup. ? Soaps. ? Detergents. ? Bleaches. ? Acids. ? Metal salts, such as nickel. Allergic contact dermatitis is most commonly caused by exposure to: ? Poisonous plants. ? Chemicals. ? Jewelry. ? Latex. ? Medicines. ? Preservatives in products, such as clothing. What increases the risk? You are more likely to develop this condition if you have: ? A job that exposes you to irritants or allergens. ? Certain medical conditions, such as asthma or eczema. What are the signs or symptoms? Symptoms of this condition may occur on your body anywhere the irritant has touched you or is touched by you. ? Symptoms include: ? Dryness or flaking. ? Redness. ? Cracks. ? Itching. ? Pain or a burning feeling. ? Blisters. ? Drainage of small amounts of blood or clear fluid from skin cracks. With allergic contact dermatitis, there may also be swelling in areas such as the eyelids, mouth, or genitals. How is this diagnosed? This condition is diagnosed with a medical history and physical exam. ? A patch skin test may be performed to help determine the cause. ? If the condition is related to your job, you may need to see an occupational physician. How is this treated? This condition is treated by checking for the cause of the reaction and protecting your skin from further contact. Treatment may also include: ? Steroid creams or ointments. Oral steroid medicines may be needed in more severe cases. ? Antibiotic medicines or antibacterial ointments, if a skin infection is present. ? Antihistamine lotion or an antihistamine taken by mouth to ease itching. ? A bandage (dressing). Follow these instructions at home: Skin care ? Moisturize your skin as needed. ? Apply cool compresses to the affected areas. ? Try applying baking soda paste to your skin. Stir water into baking soda until it reaches a paste-like consistency. ? Do not scratch your skin, and avoid friction to the affected area. ? Avoid the use of soaps, perfumes, and dyes. Medicines ? Take or apply suig-rvm-hsmsbmd and prescription medicines only as told by your health care provider. ? If you were prescribed an antibiotic medicine, take or apply the antibiotic as told by your health care provider. Do not stop using the antibiotic even if your condition improves. Bathing ? Try taking a bath with: ? Epsom salts. Follow the instructions on the packaging. You can get these at your local pharmacy or grocery store. ? Baking soda. Pour a small amount into the bath as directed by your health care provider. ? Colloidal oatmeal. Follow the instructions on the packaging. You can get this at your local pharmacy or grocery store. ? Bathe less frequently, such as every other day. ? Bathe in lukewarm water. Avoid using hot water. Bandage care ? If you were given a bandage (dressing), change it as told by your health care provider. ? Wash your hands with soap and water before and after you change your dressing. If soap and water are not available, use hand wet mix operator. General instructions ? Avoid the substance that caused your reaction. If you do not know what caused it, keep a journal to try to track what caused it. Write down: ? What you eat. ? What cosmetic products you use. ? What you drink. ? What you wear in the affected area. This includes jewelry. ? Check the affected areas every day for signs of infection. Check for: ? More redness, swelling, or pain. ? More fluid or blood. ? Warmth. ? Pus or a bad smell. ? Keep all follow-up visits as told by your health care provider. This is important. Contact a health care provider if: ? Your condition does not improve with treatment. ? Your condition gets worse. ? You have signs of infection such as swelling, tenderness, redness, soreness, or warmth in the affected area. ? You have a fever. ? You have new symptoms. Get help right away if: (more content not included)... Normal [facility] [facility] Family Medicine Office/Clini c Heather 08-02-2023 Family Medicine Office/Clinic Note Chief Complaint Establish Care/HTN HPI Staff Reason for Visit: Establish Care/HTN. Pt comes in to establish care with us today. Pt states that she did run out of medication at one point in time so she did buy a BP cuff and was trying to monitor it. She states that she did stop when she noticed that she was drinking coffee and energy drinks before the readings. She thought this would not give her a good baseline BP. Pt is back on her medications and has cut back on the caffeine a little bit. Depression: Baseline PHQ9: 5 CRIS: Baseline: 0 Last Labs done: TSH on 02/16/2023 Covid Vaccine: No Flu Vaccine: No Smoker: Former Pap (21-64yo): Due, Greater than 2 years. OBGYN:Mariana Li, DO colonoscopy/cologuard (45-75yo): Due in 2 years Mammogram (qyr 45-54, q2yrs 55-85): Due, Greater than 2 years. OBGYN:Mariana Li DO History of Present Illness Patient is new to me. Patient is here today to establish care. Medical History: The patient has a history of hypertension, chronic migraines, bipolar disorder, chronic insomnia, and hypothyroidism. Past Surgical History: The patient has not had any surgeries since 2016. She has had knee surgeries. Health Maintenance: Routine labs: None. Pap (21-64 year old): She is due for her Pap Colonoscopy/Cologuard (45-75yo): Not due yet Mammogram (every year 45-54, ever 2 years 55-85): Ordered for mammogram. Lung CA LDCT (55-74 year old + 30 PYH): not due yet. DEXA (F>65, M>70): not due yet AAA (>65 +100cigs/life or Family history): None Patient is here for follow-up on major depressive disorder and/or generalized anxiety disorder. Currently enrolled in therapy? No Patient reports being well controlled and tolerating medication well at this time. Patient denies medication side effects (Headaches, sexual dysfunction, increased weight, nausea, drowsiness). Patient denies increased fatigue/sleepiness, suicidal ideation/homicidal ideation, feelings of worthlessness, appetite changes, anhedonia, depressed mood, racing thoughts, insomnia, agitation, increased worrying, rapid heart rate, shortness of breath at this time. CRIS score: 0 PHQ9 score: 5 Savanah Byers has her TSH levels checked on 01/17/2023, but previously has no labs in the last 18 months. Her most recent full panel was on 10/14/2021. She had elevated cholesterol levels, otherwise normal CMP. She has not done CBC. She has no medications for hypothyroidism. She had an elevated blood pressure today at 138/98 mm Hg, recheck 130/88 mm Hg. Her respiration is 18 bpm, heart rate is 78 BPM, and SpO2 is 98%. Her current weight is 192 pounds or 87 kg and BMI is 29. She did run out of her medication at one point in time, so she did have to buy a blood pressure cuff, trying to monitor it. She reports that energy drinks and caffeine have caused her elevated readings. She is currently back on her medications and has cut back on caffeine intake. She has previously seen Kenyetta Hogue for her ear problems. She has also seen Dr. Monson for a cut on his finger from a cardboard. She was told it was a wart and was given an antibiotic. She believes that it was not a wart as it occasionally has pus. Here for follow up for hypertension. How often do you check your blood pressure? Rarely. What are your average readings? Not indicated Have you had any ER visits or any hospitalizations since last visit? No Are you compliant with your medications and no difficulty affording your medications? Yes Do you have side effects from the medication? No Are you compliant with your diet? Yes Do you exercise? No Do you have any of the following symptoms? Chest pain? No Palpitations? No PERES/SOB? No Orthopnea? No PND? No Edema? No Have you had any recent cardiopulmonary testing? No She does not regularly check her blood pressure. She is unsure whether it is due to her age, or she does not get enough sleep, but she requires a minimum of 9 hours of sleep per day. She works from 5:00 AM to 2:00 PM and tries to go to bed by 8:00 PM. She only slept 7.5 hours and feels drowsy today, 08/02/2023. She is fatigued. She has been drinking energy drinks for her lack of energy. She has stopped taking her blood pressure medication as her levels would be fluctuating then elevated. She denies vision changes, slurred speech, stroke-like symptoms, aneurysm, or any abnormalities. She drinks coffee on her day off. She has previously experienced flushing from her neck to her face before her visit. She denies dizziness. She walks 8 miles. She is postmenopausal She has stopped having her menstrual periods in 2019. Her weight gain was due to her bad eating habits approximately 3 to 4 years ago. 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 She reports difficulty controlling her cravings. She has migraines worse this time of the year due to weather fluctuations. She normally does not have migraines; however, when she c (more content not included)... Normal [facility] Comment on above: Result Comment: Elec tronically Signed By: Peter DAVISON, Sara Cueva\.br\Date and Time Signed: 08/02/23 17:51 EST\.br\Electronically Co-Signed By: Walker Reyes\.br\Date and Time Co-Signed: 08/02/23 17:29 EST Patient Educationon 08-02-20 Patient Education Cardiovascular Hypertension, Adult High blood pressure (hypertension) is when the force of blood pumping through the arteries is too strong. The arteries are the blood vessels that carry blood from the heart throughout the body. Hypertension forces the heart to work harder to pump blood and may cause arteries to become narrow or stiff. Untreated or uncontrolled hypertension can lead to a heart attack, heart failure, a stroke, kidney disease, and other problems. A blood pressure reading consists of a higher number over a lower number. Ideally, your blood pressure should be below 120/80. The first ( top ) number is called the systolic pressure. It is a measure of the pressure in your arteries as your heart beats. The second ( bottom ) number is called the diastolic pressure. It is a measure of the pressure in your arteries as the heart relaxes. What are the causes? The exact cause of this condition is not known. There are some conditions that result in high blood pressure. What increases the risk? Certain factors may make you more likely to develop high blood pressure. Some of these risk factors are under your control, including: ? Smoking. ? Not getting enough exercise or physical activity. ? Being overweight. ? Having too much fat, sugar, calories, or salt (sodium) in your diet. ? Drinking too much alcohol. Other risk factors include: ? Having a personal history of heart disease, diabetes, high cholesterol, or kidney disease. ? Stress. ? Having a family history of high blood pressure and high cholesterol. ? Having obstructive sleep apnea. ? Age. The risk increases with age. What are the signs or symptoms? High blood pressure may not cause symptoms. Very high blood pressure (hypertensive crisis) may cause: ? Headache. ? Fast or irregular heartbeats (palpitations). ? Shortness of breath. ? Nosebleed. ? Nausea and vomiting. ? Vision changes. ? Severe chest pain, dizziness, and seizures. How is this diagnosed? This condition is diagnosed by measuring your blood pressure while you are seated, with your arm resting on a flat surface, your legs uncrossed, and your feet flat on the floor. The cuff of the blood pressure monitor will be placed directly against the skin of your upper arm at the level of your heart. Blood pressure should be measured at least twice using the same arm. Certain conditions can cause a difference in blood pressure between your right and left arms. If you have a high blood pressure reading during one visit or you have normal blood pressure with other risk factors, you may be asked to: ? Return on a different day to have your blood pressure checked again. ? Monitor your blood pressure at home for 1 week or longer. If you are diagnosed with hypertension, you may have other blood or imaging tests to help your health care provider understand your overall risk for other conditions. How is this treated? This condition is treated by making healthy lifestyle changes, such as eating healthy foods, exercising more, and reducing your alcohol intake. You may be referred for counseling on a healthy diet and physical activity. Your health care provider may prescribe medicine if lifestyle changes are not enough to get your blood pressure under control and if: ? Your systolic blood pressure is above 130. ? Your diastolic blood pressure is above 80. Your personal target blood pressure may vary depending on your medical conditions, your age, and other factors. Follow these instructions at home: Eating and drinking ? Eat a diet that is high in fiber and potassium, and low in sodium, added sugar, and fat. An example of this eating plan is called the DASH diet. DASH stands for Dietary Approaches to Stop Hypertension. To eat this way: ? Eat plenty of fresh fruits and vegetables. Try to fill one half of your plate at each meal with fruits and vegetables. ? Eat whole grains, such as whole-wheat pasta, brown rice, or whole-grain bread. Fill about one fourth of your plate with whole grains. ? Eat or drink low-fat dairy products, such as skim milk or low-fat yogurt. ? Avoid fatty cuts of meat, processed or cured meats, and poultry with skin. Fill about one fourth of your plate with lean proteins, such as fish, chicken without skin, beans, eggs, or tofu. ? Avoid pre-made and processed foods. These tend to be higher in sodium, added sugar, and fat. ? Reduce your daily sodium intake. Many people with hypertension should eat less than 1,500 mg of sodium a day. ? Do not drink alcohol if: ? Your health care provider tells you not to drink. ? You are , may be , or are planning to become . ? If you drink alcohol: ? Limit how much you have to: ? 0?1 drink a day for women. ? 0?2 drinks a day for men. ? Know how much alcohol is in your drink. In the [place] one drink equals one 12 oz bottle of beer (355 mL), one 5 oz glass of wine (148 mL), or one 1? oz glass (more content not included)... Normal [facility] Consent for Treatmenton 07-07 Consent for Treatment [id number] 0TIFF Normal [facility] MRI Spine Lumbar w/o Contras ton 07-21-2023 MRI Spine Lumbar w/o Contrast Exam Date/Time: 07/21/2023 16:41 EST Reason for Exam: M51.36 M54.9 M79.10 Report IMPRESSION: Minimal disc degenerative disease at L4-L5 and L5-S1. Mild left lateral recess narrowing at L4-L5. No definite signs of lumbar disc protrusion central canal stenosis or foraminal stenosis. EXAM: MRI Lumbar Spine MRI Spine Lumbar w/o Contrast COMPARISONS: None CLINICAL HISTORY: Lower back pain M51.36 M54.9 M79.10 TECHNIQUE: Multisequence multiplanar imaging of the lumbar spine was performed without gadolinium contrast. MR contrast: MultiHance Volume of contrast: None cc. FINDINGS: Vertebrae: Vertebral bodies show normal age-related bone marrow signal changes. No acute fracture. Conus: The conus medullaris ends at L1 level and is unremarkable. T12-1: Normal central canal and neural foramina. L1-L2: Normal central canal and neural foramina. L2-L3: Normal central canal and neural foramina. L3-L4: Normal central canal and neural foramina. L4-L5: Minimal disc bulging with ventral ridging on the anterior CSF column. Bulging is slightly more asymmetric to the left at the level of the subarticular zone with encroachment near but no definite contact or disruption of the traversing left L5 nerve root. Changes resulting in mild left lateral recess narrowing at L4-L5. No canal or foraminal stenosis. L5-S1: Mild disc space narrowing. Diffuse disc bulging with no central canal stenosis minimal facet arthrosis. No foraminal stenosis.. Retroperitoneum: No abnormality of the visualized aorta or retroperitoneum. Report Ordering Provider: , FINAL REPORT Dictated: 07/21/2023 5:43 pm Jesus Lai MD Signed (Electronic Signature): 07/21/2023 5:43 pm Signed by: Jesus Lai MD Transcribed by: NOREEN Technologist: COURT Technical Comments None Normal [facility] RAD - MRI Screening Formon 1 09-21-2022 RAD - MRI Screening Form [id number] Normal [facility] Physician Orderon 07-18-2023 Physician Order [id number] 0TIFF Normal [facility] CHEMISTRYOrdered By: SYSTEM SYSTEM on 01-17-2023 TSH Qn 0.40 m[IU]/L Normal 0.34 - 5.60 mcIU/mL [facility] [place] Orderson 08-02-2018 Protein mass conc [id number] [facility] Vital Signs Date Time Vital Sign Value Performing Clinician Facility 04-12-2024 10:52-0400 Blood Pressure Location Sara Green [facility] 04-12-2024 10:52-0400 Diastolic blood pressure 86 mm[Hg] Sara Green [facility] 04-12-2024 10:52-0400 Heart rate 75 /min Sara Green [facility] 04-12-2024 10:52-0400 SaO2% (BldA) [Mass fraction] 98 % Sara Green [facility] 04-12-2024 10:52-0400 Systolic blood pressure 138 mm[Hg] Sara Green [facility] 03-01-2024 14:52-0400 Blood Pressure Location Sara Green [facility] 03-01-2024 14:52-0400 Body temperature 98.42 [degF] Sara Green [facility] 03-01-2024 14:52-0400 Diastolic blood pressure 80 mm[Hg] Sara Green [facility] 03-01-2024 14:52-0400 Heart rate 65 /min Sara Green [facility] 03-01-2024 14:52-0400 Respiratory rate 18 /min Sara Green [facility] 03-01-2024 14:52-0400 SaO2% (BldA) [Mass fraction] 99 % Sara Green [facility] 03-01-2024 14:52-0400 Systolic blood pressure 140 mm[Hg] Sara Green [facility] 01-31-2024 11:07-0400 Blood Pressure Location Sraa Green [facility] 01-31-2024 11:07-0400 Body temperature 98.24 [degF] Sara Green [facility] 01-31-2024 11:07-0400 Diastolic blood pressure 90 mm[Hg] Sara Green [facility] 01-31-2024 11:07-0400 Heart rate 70 /min Sara Green [facility] 01-31-2024 11:07-0400 Respiratory rate 18 /min Sara Green [facility] 01-31-2024 11:07-0400 SaO2% (BldA) [Mass fraction] 99 % Sara Green [facility] 01-31-2024 11:07-0400 Systolic blood pressure 140 mm[Hg] Sara Green [facility] 09-12-2023 14:44-0500 Body temperature 98.2 [degF] Miguel Kubitz DPM Work Phone: [facility] 09-12-2023 14:44-0500 Diastolic blood pressure 88 mm[Hg] Miguel Kubitz DPM Work Phone: [facility] 09-12-2023 14:44-0500 Heart rate 78 /min Miguel Kubitz DPM Work Phone: [facility] 09-12-2023 14:44-0500 Systolic blood pressure 144 mm[Hg] Miguel Alonsobitz DPM Work Phone: [facility] 08-17-2023 12:55-0500 Blood Pressure Location Sara Green [facility] 08-17-2023 12:55-0500 Body temperature 98.06 [degF] Sara Green [facility] 08-17-2023 12:55-0500 Diastolic blood pressure 100 mm[Hg] Sara Green [facility] 08-17-2023 12:55-0500 Heart rate 88 /min Sara Green [facility] 08-17-2023 12:55-0500 Respiratory rate 18 /min Sara Green [facility] 01-11-2024 12:55-0500 SaO2% (BldA) [Mass fraction] 97 % Sara Green [facility] 08-17-2023 12:55-0500 Systolic blood pressure 142 mm[Hg] Sara Green [facility] 08-02-2023 10:40-0500 Diastolic blood pressure 88 mm[Hg] Sara Green [facility] 08-02-2023 10:40-0500 Mean blood pressure 102 mm[Hg] Sara Green [facility] 08-02-2023 10:40-0500 Systolic blood pressure 130 mm[Hg] Sara Green [facility] 08-02-2023 10:22-0500 Blood Pressure Location Sara Green [facility] 08-02-2023 10:22-0500 Diastolic blood pressure 98 mm[Hg] Sara Green [facility] 08-02-2023 10:22-0500 Heart rate 78 /min Sara Green [facility] 08-02-2023 10:22-0500 Respiratory rate 18 /min Sara Green [facility] 08-02-2023 10:22-0500 SaO2% (BldA) [Mass fraction] 98 % Sara Green [facility] 08-02-2023 10:22-0500 Systolic blood pressure 138 mm[Hg] Sara Green [facility] 10-12-2022 11:09-0500 Blood Pressure Location Randaannalee Billy [facility] 10-12-2022 11:09-0500 Diastolic blood pressure 70 mm[Hg] Randa Gudimella [facility] 10-12-2022 11:09-0500 Heart rate 90 /min Randa Gudimella [facility] 10-12-2022 11:09-0500 SaO2% (BldA) [Mass fraction] 99 % Randa Gudimella [facility] 10-12-2022 11:09-0500 Systolic blood pressure 126 mm[Hg] Randa Gudimella [facility] 06-08-2022 11:53-0400 Blood Pressure Location Mack Monson [facility] 06-08-2022 11:53-0400 Diastolic blood pressure 80 mm[Hg] Mackadria Monson [facility] 06-08-2022 11:53-0400 Heart rate 66 /min Mackadria Monson [facility] 06-08-2022 11:53-0400 SaO2% (BldA) [Mass fraction] 97 % Mack Monson [facility] 06-08-2022 11:53-0400 Systolic blood pressure 128 mm[Hg] Mackadria Monson [facility] 05-17-2022 16:42-0400 Blood Pressure Location Randa Gudimella [facility] 05-17-2022 16:42-0400 Body temperature 98.42 [degF] Randa Gudimella [facility] 05-17-2022 16:42-0400 Diastolic blood pressure 84 mm[Hg] Randa Gudimella [facility] 05-17-2022 16:42-0400 Heart rate 74 /min Randa Gudimella [facility] 05-17-2022 16:42-0400 SaO2% (BldA) [Mass fraction] 98 % Randa Gudimella [facility] 05-17-2022 16:42-0400 Systolic blood pressure 132 mm[Hg] Randa Gudimella [facility] 03-23-2022 10:32-0400 Blood Pressure Location Randa Gudimella [facility] 03-23-2022 10:32-0400 Diastolic blood pressure 76 mm[Hg] Randa Gudimella [facility] 03-23-2022 10:32-0400 Heart rate 72 /min Randa Gudimella [facility] 03-23-2022 10:32-0400 SaO2% (BldA) [Mass fraction] 98 % Randa Gudimella [facility] 03-23-2022 10:32-0400 Systolic blood pressure 124 mm[Hg] Randa Gudimella [facility] 12-23-2021 16:42-0400 Blood Pressure Location Monet Vázquez [facility] 12-23-2021 16:42-0400 Body temperature 97.88 [degF] Monet Vázquez [facility] 12-23-2021 16:42-0400 Diastolic blood pressure 76 mm[Hg] Monet Vázquez [facility] 12-23-2021 16:42-0400 Heart rate 87 /min Monet Vázquez [facility] 12-23-2021 16:42-0400 SaO2% (BldA) [Mass fraction] 98 % Monet Vázquez [facility] 12-23-2021 16:42-0400 Systolic blood pressure 122 mm[Hg] Monet Vázquez [facility] 11-01-2021 15:11-0400 Blood Pressure Location [facility] 11-01-2021 15:11-0400 Diastolic blood pressure 66 mm[Hg] [facility] 11-01-2021 15:11-0400 Heart rate 78 /min [facility] 11-01-2021 15:11-0400 Respiratory rate 16 /min [facility] 11-01-2021 15:11-0400 SaO2% (BldA) [Mass fraction] 99 % [facility] 11-01-2021 15:11-0400 Systolic blood pressure 120 mm[Hg] [facility] 08-21-2020 11:21-0500 BMI (Body Mass Index) 25.85 kg/m2 [facility] 08-21-2020 11:21-0500 Body weight 77.11 kg [facility] 08-21-2020 11:21-0500 Height 172.7 cm [facility] 08-21-2020 11:21-0500 Respiratory Rate 16 /min [facility] 10-06-2014 11:52-0500 Diastolic blood pressure 76 mm[Hg] [facility] 10-06-2014 11:52-0500 Heart rate 63 /min [facility] 10-06-2014 11:52-0500 Mean blood pressure 89 mm[Hg] [facility] 10-06-2014 11:52-0500 SaO2% (BldA) [Mass fraction] 97 % [facility] 10-06-2014 11:52-0500 Systolic blood pressure 115 mm[Hg] [facility] Encounters Encounter Date Encounter Type Care Provider Facility Start: 05-17-2024 ambulatory Sara Yen ity:Jaun MARROQUIN Start: 04-23-2024 End: 04-23-2024 ambulatory GEENA HANSEN Not Available Start: 04-22-2024 End: 04-22-2024 Emergency department patient visit Alex Becky [place] [place]: 04-12-2024 End: 04-12-2024 ambulatory Sara Green Facility:[facility] Start: 04-12-2024 End: 04-12-2024 Patient encounter procedure Sara Green [facility] Start: 04-11-2024 ambulatory Sara Green Facil ity:[facility] Start: 03-12-2024 End: 03-26-2024 Pre-admission assessment Sara Green [facility] Start: 03-01-2024 End: 03-01-2024 ambulatory Sara Green Facility[facility] Start: 03-01-2024 End: 03-01-2024 Patient encounter procedure Sara Green [facility] Start: 01-31-2024 End: 01-31-2024 ambulatory Sara Green Facility:[facility] Start: 01-31-2024 End: 01-31-2024 Patient encounter procedure Sara Green [facility] Start: 01-19-2024 End: 01-19-2024 ambulatory Sara Green [place] [place]: 01-19-2024 End: 01-19-2024 Patient encounter procedure Sara Green [facility] Start: 12-26-2023 End: 12-26-2023 ambulatory GEENA GRACIELA Not Available Start: 09-29-2023 ambulatory Sara Green Facil ity:[facility] Start: 09-28-2023 End: 09-28-2023 ambulatory Sara Green [place] Start: 09-28-2023 End: 09-28-2023 Patient encounter procedure Sara Green [facility] Start: 09-12-2023 End: 09-12-2023 ambulatory MIGUEL CAI Not Available Start: 09-12-2023 End: 09-12-2023 Office outpatient visit 15 minutes Miguel Arriaza Maggie DPM Work Phone: [facility] Comment on above: Pain of toe of left foot (Primary Dx); Contusion of left lesser toe(s) w/o damage to nail, init; Verruca plantaris; Verruca Start: 09-11-2023 Chart abstracting Miguel Arriaza Mynor david DPM Work Phone: [facility] Start: 08-31-2023 End: 09-15-2023 Pre-admission assessment Sara Green [facility] Start: 08-31-2023 End: 08-31-2023 ambulatory Sara Green Facility:[facility] Start: 08-17-2023 End: 08-17-2023 ambulatory Sara Green Facility:[facility] Start: 08-17-2023 End: 08-17-2023 Patient encounter procedure Sara Green [facility] Start: 08-08-2023 End: 08-08-2023 ambulatory MIGUEL CAI Not Available Start: 08-02-2023 End: 08-02-2023 ambulatory Sara Green Facility:[facility] Start: 08-02-2023 End: 08-02-2023 Patient encounter procedure Sara Green [facility] Start: 07-21-2023 End: 07-21-2023 ambulatory GEENA HANSEN [place]: 07-18-2023 ambulatory Sara Green Facilit y:[facility] Start: 04-19-2023 End: 04-19-2023 Patient encounter procedure Randa Gudimella [facility] Start: 02-03-2023 End: 02-03-2023 Patient encounter procedure Kenyetta Hogue [facility] Start: 01-17-2023 End: 01-17-2023 Lab Drop off Kenyetta Hogue [facility] Start: 10-12-2022 End: 10-12-2022 Patient encounter procedure Randa Gudimella [facility] Start: 06-08-2022 End: 06-08-2022 Patient encounter procedure Mack Monson [facility] Start: 05-17-2022 End: 05-17-2022 Patient encounter procedure Randa Gudimella [facility] Start: 03-30-2022 End: 06-28-2022 Recurring Randa Gudimella [facility] Start: 03-23-2022 End: 03-23-2022 Patient encounter procedure Randa Gudimella [facility] Start: 12-23-2021 End: 12-23-2021 Patient encounter procedure Monet Vázquez [facility] Start: 12-23-2021 End: 12-23-2021 [facility] Start: 11-01-2021 End: 11-01-2021 Patient encounter procedure Krystal Keene [facility] Start: 03-17-2021 End: 06-26-[address] ALONDRA CLEMENT Facility: Start: 02-22-2021 End: 02-22-2021 ambulatory [facility] Start: 02-22-2021 End: 02-22-2021 Phys/qhp telephone evaluation 11-20 min Nikki Perez MD Work Phone: [facility] Comment on above: Bipolar affective di sorder, mixed, in full remission (HCC) (Primary Dx); Insomnia due to mental disorder Start: 11-20-2020 End: 11-24-2020 ambulatory [facility] Start: 11-20-2020 End: 11-20-2020 Phys/qhp telephone evaluation 11-20 min Upender Donutsignacio Work Phone: [facility] Comment on above: Bipolar affective di sorder, mixed, in full remission (HCC) (Primary Dx); Insomnia due to mental disorder Start: 08-21-2020 End: 08-21-2020 ambulatory [facility] Start: 08-21-2020 End: 08-21-2020 Phys/qhp telephone evaluation 11-20 min [facility] Donutsnaila Work Phone: [facility] Comment on above: Bipolar affective di sorder, mixed, in full remission (HCC) (Primary Dx); Insomnia due to mental disorder Start: 07-27-2018 End: 07-27-2018 Patient encounter procedure Mariana Li Facility:[facility] Start: 12-20-2012 End: 12-20-2012 Telephone encounter Purvi Blanco Work Phone: Neurology Comment on above: Appointment (Set up appt with Nyasia/Hernan) Procedures Date Procedure Procedure Detail Performing Clinician Start: 09-14-2023 Radex foot complete minimum 3 views Miguel Cai DPM Work Phone: Start: 08-07-2015 Colonoscopy Krystal leong Start: 10-06-2014 left knee arthroscop y with anterior cruciate ligament reconstruction using bone, patellar tendon, bone allograft Krystal Keene Arthroscopy and biop sy of knee Krystal Keene Comment on above: X2 LEFT X2 LEFT Injection of nerve r oot of lumbar spine using fluoroscopic guidance Krystal Keene Comment on above: Left L5-S1 TFESI 30- 40% relief since injection. Left L5-S1 TFESI 30- 40% relief since injection. right great toe surgery 4 Al lison Yecenia Comment on above: March Rupture of anterior cruciate ligament (disorder) Krystal Keene Comment on above: 2005 2005 sinus surgery Krystal Keene Plan of Treatment Date Care Activity Detail Author Start: 10-24-2023 End: 10-24-2023 Patient encounter procedure 10/24/2023 4:00 PM EDT Office Visit [facility] [address] [place] [address] Miguel Cai DPM [address] [place] [id number] [facility] Start: 09-12-2023 End: 09-12-2023 Patient encounter procedure 09/12/2023 4:00 PM EST Office Visit [facility] [address] [place] [id number] Miguel Cai DPM [address] [place] [address] [facility] Start: 05-24-2021 End: 05-24-2021 Patient encounter procedure 05/24/2021 Office Visit Psychiatry Nikki Perez MD [address] [address] [phone] [facility] Start: 04-07-2021 Influenza vaccination [facility] Start: 11-20-2020 End: 11-20-2020 Telemedicine 11/20/2020 Telemedicine Psychiatry Nikki Perez MD [facility] [address] [place] [id number] [phone] [facility] Start: 04-07-2020 Influenza vaccination given Sequential Influenza Vaccine (#1) [facility] Start: 2016 DIABETES SCREEN DIABETES SCREEN [facility] Start: 2016 LIPID SCREEN LIPID SCREEN [facility] Start: 2011 Mammography MAMMOGRAM [facility] Start: 2011 Screening for malignant neoplasm of breast Mammogram [facility] Start: 2001 HPV TESTING HPV TESTING [facility] Start: 1992 PAP TESTING PAP TESTING [facility] Start: 1990 Urine microalbumin profile DTAP,TDAP,TD (1 - Tdap) [facility] Start: 1989 Hepatitis C antibody, confirmatory test Hepatitis C Screening [facility] Start: 1989 HEPATITIS C SCREENING HEPATITIS C SCREENING [facility] Start: 1989 Hepatitis C screening Hepatitis C Screening [facility] Start: 1989 HIV SCREENING HIV SCREENING [facility] Start: 1987 COVID-19 Vaccine (1) COVID-19 Vaccine (1) [facility] Start: 1986 HIV screening HIV Screening [facility] Start: 1983 Adolescent depression screening assessment [facility] Start: 1983 COVID-19 Vaccine (1) COVID-19 Vaccine (1) [facility] Start: 1974 History and physical examination, annual for health maintenance Wellness Visit [facility] Start: 1971 Screening for malignant neoplasm of cervix Pap Smear [facility] Start: 1971 Screening for malignant neoplasm of colon [facility] Start: 1971 Screening mammography Mammogram [facility] Start: 1971 Tetanus vaccination Tetanus: Every 10yrs [facility] Immunizations Immunization Date Immunization Notes Care Provider Christiano zee NEGATED: Highlighted row has not occurred!10-12-2022 influenza virus vaccine, unspecified formulation Randa Billy [facility] NEGATED: Highlighted row has not occurred!06-08-2022 influenza virus vaccine, unspecified formulation Mack Monson [facility] NEGATED: Highlighted row has not occurred!05-06-2021 influenza virus vaccine, unspecified formulation [facility] NEGATED: Highlighted row has not occurred!05-06-2021 SARS-CoV-2 (COVID-19) Ad26 vaccine, recombinant [facility] NEGATED: Highlighted row has not occurred!05-21-2020 influenza virus vaccine, unspecified formulation [facility] NEGATED: Highlighted row has not occurred!03-05-2020 influenza virus vaccine, unspecified formulation [facility] Payers Date Payer Category Payer Unknown [id number] 2018 Unknown BCBS BCBS [id number] 2018-Present [phone] [address] [place] [address] [id number] 2018 Unknown [id number] 2018 Self-pay ABC 2012 Unknown [id number] 2012 Unknown [id number] 1971 Unknown [id number] [id number]8 1971 Unknown [id number] 2.16.840.1.569698.3.579.2.903 1971 Unknown [id number] 2.16.840.1.131406.3.579.2.903 1971 Unknown [id number] 2.16.840.1.062930.3.579.2.903 1971 Unknown [id number] 2.16.840.1.467172.3.579.2.593 1971 Unknown [id number] 2.16.840.1.574202.3.579.2. 1971 Unknown [id number] 2.16.840.1.706924.3.579.2 1971 Unknown [id number] 2.16.840.1.819398.3.579.2 1971 Unknown [id number] 2.16.840.1.013167.3.579.2 1971 Unknown [id number] 2.16840.1.753047.3.579.2 1971 Unknown [id number] 2.840.1.707700.3.579.2 1971 Unknown [id number] 2.16.840.1.389985.3.579.2 1971 Unknown [id number] 2.16.840.1.293907.3.579.2 1971 Unknown [id number] 2.16840.1.203362.3.579.2 1971 Unknown [id number] 2.840.1.437317.3.579.2 1971 Unknown [id number] 2.16.840.1.660963.3.579.2 1971 Unknown [id number] 2.16.840.1.837832.3.579.2 1971 Unknown [id number] 2.16.840.1.968831.3.579.2 1971 Unknown [id number] 2.16.840.1.327172.3.579.2 1971 Unknown [id number] 2.16.840.1.646862.3.579.2.1259 1971 Unknown [id number] 2.16.840.1.588971.3.579.2.1259 1971 Unknown [id number] 2.16.840.1.714116.3.579.2.1259 1971 Unknown [id number] 2.16.840.1.542498.3.579.2.1259 1971 Unknown [id number] 2.16.840.1.149943.3.579.2.727 1959 Self-pay Social History Date Type Detail Facility Start: 08-21-2020 End: 02-12-2023 Tobacco smoking status NHIS Never smoker [facility] Start: 08-21-2020 End: 02-12-2023 Tobacco use and exposure Never used [facility] Start: 08-21-2020 End: 09-12-2023 Alcohol intake Current drinker of alcohol (finding) [facility] Start: 1970 Sex Assigned At Not on file O [facility] Exposure to SARS-CoV -2 (event) Unable to assess [facility] Start: 12-13-2012 End: 04-12-2024 Tobacco smoking status [facility] Former smoker [facility] History of tobacco use Cigarette Smoker C [facility] Work Phone: Start: 12-13-2012 End: 09-12-2023 Cigarettes smoked current (pack per day) - Reported [facility] Start: 12-13-2012 Alcohol intake Not Asked Nidia noble [facility] Exposure to SARS-CoV -2 (event) Not sure [facility] Work Phone (unformatted): [phone] Tobacco [facility] status [facility] Start: 08-07-2023 End: 09-12-2023 [facility] How many standard drinks containing alcohol do you have on a typical day? 1 or 2 [facility] How often do you hav e 6 or more drinks on 1 occasion? Monthly [facility] Start: 02-17-2023 Education 21 [facility] Start: 08-07-2023 Alcohol Comment caffeine intak e: 2 cups per day of coffee; green tea [facility] Functional Status Date Assessment Result Facility 04-12-2024 Functional Status N/A [facility] 03-01-2024 Functional Status N/A [facility] 01-31-2024 Functional Status N/A [facility] 08-17-2023 Functional Status N/A [facility] 08-02-2023 Functional Status N/A [facility] 10-12-2022 Functional Status N/A [facility] 06-08-2022 Functional Status N/A [facility] 05-17-2022 Functional Status N/A [facility] 03-23-2022 N/A [facility] Clinical Notes 12-20-2012 to 04-22-2024 Miguel Cai DPM - 09/12/2023 4:00 PM Nikki Lazo MD - 02/22/2021 3:13 PM EDTTelejared Patel - Colin Ellis - 12/20/2012 3:32 PM EDTLaboratoryLaboratoryLaboratoryRadiology Note Date & Type Note Facility 04-22-2024 Note ED Patient Education Note Gastroenterology Nausea, Adult Nausea is feeling like you may vomit. Feeling like you may vomit is usually not serious, but it may be an early sign of a more serious medical problem. Vomiting is when stomach contents forcefully come out of your mouth. If you vomit, or if you are not able to drink enough fluids, you may not have enough water in your body (get dehydrated). If you do not have enough water in your body, you may: ? Feel tired. ? Feel thirsty. ? Have a dry mouth. ? Have cracked lips. ? Pee (urinate) less often. Older adults and people who have other diseases or a weak body defense system (immune system) have a higher risk of not having enough water in the body. The main goals of treating this condition are: ? To relieve your nausea. ? To ensure your nausea occurs less often. ? To prevent vomiting and losing too much fluid. Follow these instructions at home: Watch your symptoms for any changes. Tell your doctor about them. Eating and drinking ? Take an ORS (oral rehydration solution). This is a drink that is sold at pharmacies and stores. ? Drink clear fluids in small amounts as you are able. These include: ? Water. ? Ice chips. ? Fruit juice that has water added (diluted fruit juice). ? Low-calorie sports drinks. ? Eat bland, nyam-ty-mhsdmk foods in small amounts as you are able, such as: ? Bananas. ? Applesauce. ? Rice. ? Low-fat (lean) meats. ? [employer]. ? Crackers. ? Avoid drinking fluids that have a lot of sugar or caffeine in them. This includes energy drinks, sports drinks, and soda. ? Avoid alcohol. ? Avoid spicy or fatty foods. General instructions ? Take qlkg-tok-zqyqqrq and prescription medicines only as told by your doctor. ? Rest at home while you get better. ? Drink enough fluid to keep your pee (urine) pale yellow. ? Take slow and deep breaths when you feel like you may vomit. ? Avoid food or things that have strong smells. ? Wash your hands often with soap and water for at least 20 seconds. If you cannot use soap and water, use hand wet mix operator. ? Make sure that everyone in your home washes their hands well and often. ? Keep all follow-up visits. Contact a doctor if: ? You feel worse. ? You feel like you may vomit and this lasts for more than 2 days. ? You vomit. ? You are not able to drink fluids without vomiting. ? You have new symptoms. ? You have a fever. ? You have a headache. ? You have muscle cramps. ? You have a rash. ? You have pain while peeing. ? You feel light-headed or dizzy. Get help right away if: ? You have pain in your chest, neck, arm, or jaw. ? You feel very weak or you faint. ? You have vomit that is bright red or looks like coffee grounds. ? You have bloody or black poop (stools) or poop that looks like tar. ? You have a very bad headache, a stiff neck, or both. ? You have very bad pain, cramping, or bloating in your belly (abdomen). ? You have trouble breathing or you are breathing very quickly. ? Your heart is beating very quickly. ? Your skin feels cold and clammy. ? You feel confused. ? You have signs of losing too much water in your body, such as: ? Dark pee, very little pee, or no pee. ? Cracked lips. ? Dry mouth. ? Sunken eyes. ? Sleepiness. ? Weakness. These symptoms may be an emergency. Get help right away. Call 911. ? Do not wait to see if the symptoms will go away. ? Do not drive yourself to the hospital. Summary ? Nausea is feeling like you are about vomit. ? If you vomit, or if you are not able to drink enough fluids, you may not have enough water in your body (get dehydrated). ? Eat and drink what your doctor tells you. Take htsu-lyq-hhjruhe and prescription medicines only as told by your doctor. ? Contact a doctor right away if your symptoms get worse or you have new symptoms. ? Keep all follow-up visits. This information is not intended to replace advice given to you by your health care provider. Make sure you discuss any questions you have with your health care provider. Document Revised: 01/28/2022 Document Reviewed: 01/28/2022 [employer] Patient Education ? 2023 [employer]. Abdominal Pain, Adult Many things can cause belly (abdominal) pain. In most cases, belly pain is not a serious problem and can be watched and treated at home. But in some cases, it can be serious. Your doctor will try to find the cause of your belly pain. Follow these instructions at home: Medicines ? Take iwur-oes-vzhomgh and prescription medicines only as told by your doctor. ? Do not take medicines that help you poop (laxatives) unless told by your doctor. General instructions ? Watch your belly pain for any changes. Tell your doctor if the pain gets worse. ? Drink enough fluid to keep your pee (urine) pale yellow. Contact a doctor if: ? Your belly pa (more content not included)... [facility] 04-12-2024 Hospital Discharg e instructions Patient Education 04/12/2024 11:35:42 BMI for Adults BMI for Adults Body mass index (BMI) is a number found using a person's weight and height. BMI can help tell how much of a person's weight is made up of fat. BMI does not measure body fat directly. It is used instead of tests that directly measure body fat, which can be difficult and expensive. What are BMI measurements used for? BMI is useful to: Find out if your weight puts you at higher risk for medical problems. Help recommend changes, such as in diet and exercise. This can help you reach a healthy weight. BMI screening can be done again to see if these changes are working. How is BMI calculated? Your height and weight are measured. The BMI is found from those numbers. This can be done with U.S. or metric measurements. Note that charts and online BMI calculators are available to help you find your BMI quickly and easily without doing these calculations. To calculate your BMI in U.S. measurements: 1.Measure your weight in pounds (lb). 2.Multiply the number of pounds by 703. So, for an adult who weighs 150 lb, multiply that number by 703: 150 x 703, which equals 105,450. 3.Measure your height in inches. Then multiply that number by itself to get a measurement called inches squared. So, for an adult who is 70 inches tall, the inches squared measurement is 70 inches x 70 inches, which equals 4,900 inches squared. 4.Divide the total from step 2 (number of lb x 703) by the total from step 3 (inches squared): 105,450 4,900 = 21.5. This is your BMI. To calculate your BMI in metric measurements: 1.Measure your weight in kilograms (kg). For this example, the weight is 70 kg. 2.Measure your height in meters (m). Then multiply that number by itself to get a measurement called meters squared. So, for an adult who is 1.75 m tall, the meters squared measurement is 1.75 m x 1.75 m, which equals 3.1 meters squared. 3.Divide the number of kilograms (your weight) by the meters squared number. In this example: 70 3.1 = 22.6. This is your BMI. What do the results mean? BMI charts are used to see if you are underweight, normal weight, overweight, or obese. The following guidelines will be used: Underweight: BMI less than 18.5. Normal weight: BMI between 18.5 and 24.9. Overweight: BMI between 25 and 29.9. Obese: BMI of 30 or above. BMI is a tool and cannot diagnose a condition. Talk with your health care provider about what your BMI means for you. Keep these notes in mind: Weight includes fat and muscle. Someone with a muscular build, such as an athlete, may have a BMI that is higher than 24.9. In cases like these, BMI is not a correct measure of body fat. If you have a BMI of 25 or higher, your provider may need to do more testing to find out if excess body fat is the cause. BMI is measured the same way for males and females. Females usually have more body fat than males of the same height and weight. Where to find more information For more information about BMI, including tools to quickly find your BMI, go to: Centers for Disease Control and Prevention: cdc.gov [place] Heart Association: heart.org National Heart, Lung, and Blood [place]: nhlbi.nih.gov This information is not intended to replace advice given to you by your health care provider. Make sure you discuss any questions you have with your health care provider. Document Revised: 04/13/2023 Document Reviewed: 04/06/2023 [employer] Patient Education 2023 [employer]. 04/12/2024 11:35:40 Nausea, Adult Nausea, Adult Nausea is the feeling of having an upset stomach or that you are about to vomit. Nausea on its own is not usually a serious concern, but it may be an early sign of a more serious medical problem. As nausea gets worse, it can lead to vomiting. If vomiting develops, or if you are not able to drink enough fluids, you are at risk of becoming dehydrated. Dehydration can make you tired and thirsty, cause you to have a dry mouth, and decrease how often you urinate. Older adults and people with other diseases or a weak disease-fighting system (immune system) are at higher risk for dehydration. The main goals of treating your nausea are: To relieve your nausea. To limit repeated nausea episodes. To prevent vomiting and dehydration. Follow these instructions at home: Watch your symptoms for any changes. Tell your health care provider about them. Eating and drinking Take an oral rehydration solution (ORS). This is a drink that is sold at pharmacies and retail stores. Drink clear fluids slowly and in small amounts as you are able. Clear fluids include water, ice chips, low-calorie sports drinks, and fruit juice that has water added (diluted fruit juice). Eat bland, uber-xh-ggtudw foods in small amounts as you are able. These foods include bananas, applesauce, rice, lean meats, toast, and crackers. Avoid drinking fluids that contain a lot of sugar or caffeine, such as energy drinks, sports drinks, and soda. Avoid alcohol. Avoid spicy or fatty foods. General instructions Take riij-gck-reoruii and prescription medicines only as told by your health care provider. Rest at home while you recover. Drink enough fluid to keep your urine pale yellow. Breathe slowly and deeply when you feel nauseous. Avoid smelling things that have strong odors. Wash your hands often using soap and water for at least 20 seconds. If soap and water are not available, use hand wet mix operator. Make sure that everyone in your household washes their hands well and often. Keep all follow-up visits. This is important. Contact a health care provider if: Your nausea gets worse. Your nausea does not go away after two days. You vomit multiple times. You cannot drink fluids without vomiting. You have any of the following: ?New symptoms. ?A fever. ?A headache. ?Muscle cramps. ?A rash. ?Pain while urinating. You feel light-headed or dizzy. Get help right away if: You have pain in your chest, neck, arm, or jaw. You feel extremely weak or you faint. You have vomit that is bright red or looks like coffee grounds. You have bloody or black stools (feces) or stools that look like tar. You have a severe headache, a stiff neck, or both. You have severe pain, cramping, or bloating in your abdomen. You have difficulty breathing or are breathing very quickly. Your heart is beating very quickly. Your skin feels cold and clammy. You feel confused. You have signs of dehydration, such as: ?Dark urine, very little urine, or no urine. ?Cracked lips. ?Dry mouth. ?Sunken eyes. ?Sleepiness. ?Weakness. These symptoms may be an emergency. Get help right away. Call 911. Do not wait to see if the symptoms will go away. Do not drive yourself to the hospital. Summary Nausea is the feeling that you have an upset stomach or that you are about to vomit. Nausea on its own is not usually a serious concern, but it may be an early sign of a more serious medical problem. If vomiting develops, or if you are not able to drink enough fluids, you are at risk of becoming dehydrated. Follow recommendations for eating and drinking and take uycj-hlo-jomdwrs and prescription medicines only as told by your health care provider. Contact a health care provider right away if your symptoms worsen or you have new symptoms. Keep all follow-up visits. This is important. This information is not intended to replace advice given to you by your health care provider. Make sure you discuss any questions you have with your health care provider. Document Revised: 01/28/2022 Document Reviewed: 01/28/2022 [employer] Patient Education 2023 [employer]. 04/12/2024 11:35:37 Preventing Health Risks of Being Overweight Preventing Health Risks of Being Overweight Maintaining a healthy body weight is an important part of your overall health. Your healthy body weight depends on your age, gender, and height. Being overweight puts you at risk for many health problems. You can make changes to your diet and lifestyle to prevent these risks. Consider working with a health care provider or a dietitian to make these changes. How can being overweight affect me? Being overweight can affect you for your entire life. You may develop joint or bone problems that make it painful or difficult for you to play sports or do activities you enjoy. Being overweight also puts stress on your heart and lungs and can lead to medical problems such as: Heart disease. Diabetes. Some types of cancer. Stroke. Eating healthy and being active helps you lose weight and prevents health problems caused by being overweight. Making these changes can also help you manage stress, feel better mentally, and connect with friends and family. What can increase my risk? In addition to certain diet and lifestyle choices, some other factors that may make you more likely to be overweight include: Having a family history of obesity. Living in an area with limited access to: ?[place], recreation centers, or sidewalks. ?Healthy food choices, such as grocery stores and farmers' markets. What actions can I take to prevent health risks of being overweight? Nutrition Eat only as much as your body needs. In most cases, this is about 2,000 calories a day, but the amount varies depending on your height, gender, and activity level. Ask your health care provider how many calories you should have each day. Eating more than your body needs on a regular basis can cause you to become overweight or obese. Eat slowly, and stop eating when you feel full. Choose healthy foods, including: ?Fruits and vegetables. ?Lean meats. ?Low-fat dairy products. ?High-fiber foods, such as whole grains and beans. ?Healthy snacks like vegetable sticks, a piece of fruit, or a small amount of yogurt or cheese. Avoid foods and drinks that are high in sugar, salt (sodium), saturated fat, or trans fat. This includes: ?Many desserts such as candy, cookies, and ice cream. ?Soda. ?Fried foods. ?Processed, precooked, or cured meat, such as hot dogs, sausages, or meat loaves. ?Prepackaged snack foods. Lifestyle Exercise for at least 150 minutes a week to prevent weight gain, or as often as recommended by your health care provider. Do moderate-intensity exercise, such as brisk walking. ?Spread it out by exercising for 30 minutes 5 days a week, or in short 10-minute bursts several times a day. Find other ways to stay active and burn calories, such as yard work or a hobby that involves physical activity. Get at least 8 hours of sleep each night. When you are well rested, you are more likely to be active and make healthy choices during the day. To sleep better: ?Try to go to bed and wake up at about the same time every day. ?Keep your bedroom dark, quiet, and cool. ?Make sure that your bed is comfortable. ?Avoid stimulating activities, such as watching television or exercising, for at least an hour before bedtime. Where to find support You can get support for preventing health risks of being overweight from: Your health care provider or a dietitian. They can provide guidance about healthy eating and healthy lifestyle choices. Weight loss support groups, online or in-person. Where to find more information [employer]: www.[employer].gov ?This an online tool that provides personalized recommendations about foods to eat each day. The Centers for Disease Control and Prevention: www.cdc.gov/healthyweight ?This resource gives tips for managing weight and having an active lifestyle. Summary Eating healthy and being active helps you lose weight and prevents health problems caused by being overweight. Being overweight puts stress on your heart and lungs and can lead to medical problems such as diabetes, heart disease, some types of cancer, and stroke. This information is not intended to replace advice given to you by your health care provider. Make sure you discuss any questions you have with your health care provider. Document Revised: 02/18/2022 Document Reviewed: 02/18/2022 [employer] Patient Education 2023 [employer]. 04/12/2024 11:35:35 Heart Disease Prevention Heart Disease Prevention Heart disease is the leading cause of in the world. Coronary artery disease is the most common cause of heart disease. This condition results when cholesterol and other substances (plaque) build up inside the hooper of the blood vessels that supply your heart muscle (arteries). This buildup in arteries is called atherosclerosis. You can take actions to lower your risk of heart disease. How can heart disease affect me? Heart disease can cause many unpleasant symptoms and complications, such as: Chest pain (angina). Reduced or blocked blood flow to your heart. This can cause: ?Irregular heartbeats (arrhythmias). ?Heart attack. ?Heart failure. What can increase my risk? The following factors may make you more likely to develop this condition: High blood pressure (hypertension). High cholesterol. A diet high in saturated fats or trans fats. Obesity. Diabetes. Having a family history of heart disease. Certain lifestyle factors, including: ?Smoking. ?Lack of physical activity. ?Drinking too much alcohol. What actions can I take to prevent heart disease? Nutrition Follow a heart-healthy eating plan as told by your health care provider. Examples include the DASH eating plan. DASH stands for Dietary Approaches to Stop Hypertension. Generally, it is recommended that you: ?Eat less salt (sodium). Ask your health care provider how much sodium is safe for you. Most people should have less than 2,300 mg each day. ?Limit unhealthy fats, such as saturated and trans fats, in your diet. You can do this by eating low-fat dairy products, eating less red meat, and avoiding processed foods. ?Eat healthy fats (omega-3 fatty acids). These are found in fish, such as mackerel or salmon. ?Eat more fruits and vegetables. You should try to fill one-half of your plate with fruits and vegetables at each meal. ?Eat more whole grains. ?Avoid foods and drinks that have added sugars. Try to limit how much added sugar you have to: ?Less than 25 grams a day for women. ?Less than 36 grams a day for men. Lifestyle Get regular exercise. This is one of the most important things you can do for your health. Generally, it is recommended that you: ?Exercise for at least 30 minutes on most days of the week (150 minutes each week). This should be exercise that causes your heart to beat faster (aerobic exercise). ?Add strength exercises on at least 2 days each week. Do not use any products that contain nicotine or tobacco. These products include cigarettes, chewing tobacco, and vaping devices, such as e-cigarettes. These can damage your heart and blood vessels. If you need help quitting, ask your health care provider. Alcohol use Do not drink alcohol if: ?Your health care provider tells you not to drink. ?You are , may be , or are planning to become . If you drink alcohol: ?Limit how much you have to: ?0 1 drink a day for women. ?0 2 drinks a day for men. ?Know how much alcohol is in your drink. In the [place] one drink equals one 12 oz bottle of beer (355 mL), one 5 oz glass of wine (148 mL), or one 1 oz glass of hard liquor (44 mL). Medicines Take [id number] and prescription medicines only as told by your health care provider. Work with your health care provider to find out whether it is safe and beneficial for you to take aspirin daily. Make sure that you understand how much to take and what form to take. Depending on your risk factors, your health care provider may prescribe medicines to lower your risk of heart disease or to control related conditions. You may take medicine to: ?Lower cholesterol. ?Control blood pressure. ?Control diabetes. General information Keep your blood pressure under control, as recommended by your health care provider. For most healthy people, the upper number of their blood pressure (systolic) should be no higher than 120, and the lower number (diastolic) no higher than 80. Treatment may be needed if your blood pressure is higher than 130/80. Have your blood pressure checked at least every 2 years. Your health care provider may check your blood pressure more often if you have high blood pressure. After age 20, have your cholesterol checked every 4 6 years. If you have risk factors for heart disease, you may need to have it checked more often. Treatment may be needed if your cholesterol is high. Have your body mass index (BMI) checked every year. Your health care provider can calculate your BMI from your height and weight. Check your waist circumference. It should be: ?No more than 35 inches (89 cm) for women who are not . ?No more than 40 inches (102 cm) for men. Work with your health care provider to lose weight, if needed, or to maintain a healthy weight. Where to find more information: Centers for Disease Control and Prevention: www.cdc.gov/heartdisease [place] Heart Association: www.heart.org Summary Heart disease is the leading cause of in the world. Heart disease can cause chest pain, abnormal heart rhythms, heart attack, and heart failure. Some of the risk factors for heart disease include high blood pressure, high cholesterol, and smoking. You can take actions to lower your chances of developing heart disease. Work with your health care provider to reduce your risk by following a heart-healthy diet, being physically active, and controlling your weight, blood pressure, and cholesterol level. This information is not intended to replace advice given to you by your health care provider. Make sure you discuss any questions you have with your health care provider. Document Revised: 03/23/2022 Document Reviewed: 03/23/2022 [employer] Patient Education 2023 [employer]. 04/12/2024 11:35:33 High Cholesterol High Cholesterol High cholesterol is a condition in which the blood has high levels of a white, waxy substance similar to fat (cholesterol). The liver makes all the cholesterol that the body needs. The human body needs small amounts of cholesterol to help build cells. A person gets extra or excess cholesterol from the food that he or she eats. The blood carries cholesterol from the liver to the rest of the body. If you have high cholesterol, deposits (plaques) may build up on the hooper of your arteries. Arteries are the blood vessels that carry blood away from your heart. These plaques make the arteries narrow and stiff. Cholesterol plaques increase your risk for heart attack and stroke. Work with your health care provider to keep your cholesterol levels in a healthy range. What increases the risk? The following factors may make you more likely to develop this condition: Eating foods that are high in animal fat (saturated fat) or cholesterol. Being overweight. Not getting enough exercise. A family history of high cholesterol (familial hypercholesterolemia). Use of tobacco products. Having diabetes. What are the signs or symptoms? In most cases, high cholesterol does not usually cause any symptoms. In severe cases, very high cholesterol levels can cause: Fatty bumps under the skin (xanthomas). A white or mane ring around the black center (pupil) of the eye. How is this diagnosed? This condition may be diagnosed based on the results of a blood test. If you are older than 20 years of age, your health care provider may check your cholesterol levels every 4 6 years. You may be checked more often if you have high cholesterol or other risk factors for heart disease. The blood test for cholesterol measures: Bad cholesterol, or LDL cholesterol. This is the main type of cholesterol that causes heart disease. The desired level is less than 100 mg/dL (2.59 mmol/L). Good cholesterol, or HDL cholesterol. HDL helps protect against heart disease by cleaning the arteries and carrying the LDL to the liver for processing. The desired level for HDL is 60 mg/dL (1.55 mmol/L) or higher. Triglycerides. These are fats that your body can store or burn for energy. The desired level is less than 150 mg/dL (1.69 mmol/L). Total cholesterol. This measures the total amount of cholesterol in your blood and includes LDL, HDL, and triglycerides. The desired level is less than 200 mg/dL (5.17 mmol/L). How is this treated? Treatment for high cholesterol starts with lifestyle changes, such as diet and exercise. Diet changes. You may be asked to eat foods that have more fiber and less saturated fats or added sugar. Lifestyle changes. These may include regular exercise, maintaining a healthy weight, and quitting use of tobacco products. Medicines. These are given when diet and lifestyle changes have not worked. You may be prescribed a statin medicine to help lower your cholesterol levels. Follow these instructions at home: Eating and drinking Eat a healthy, balanced diet. This diet includes: ? Daily servings of a variety of fresh, frozen, or canned fruits and vegetables. ?Daily servings of whole grain foods that are rich in fiber. ?Foods that are low in saturated fats and trans fats. These include poultry and fish without skin, lean cuts of meat, and low-fat dairy products. ?A variety of fish, especially oily fish that contain omega-3 fatty acids. Aim to eat fish at least 2 times a week. Avoid foods and drinks that have added sugar. Use healthy cooking methods, such as roasting, grilling, broiling, baking, poaching, steaming, and stir-frying. Do not banerjee your food except for stir-frying. If you drink alcohol: ?Limit how much you have to: ?0 1 drink a day for women who are not . ?0 2 drinks a day for men. ?Know how much alcohol is in a drink. In the [place] one drink equals one 12 oz bottle of beer (355 mL), one 5 oz glass of wine (148 mL), or one 1 oz glass of hard liquor (44 mL). Lifestyle Get regular exercise. Aim to exercise for a total of 150 minutes a week. Increase your activity level by doing activities such as gardening, walking, and taking the stairs. Do not use any products that contain nicotine or tobacco. These products include cigarettes, chewing tobacco, and vaping devices, such as e-cigarettes. If you need help quitting, ask your health care provider. General instructions Take [id number] and prescription medicines only as told by your health care provider. Keep all follow-up visits. This is important. Where to find more information [place] Heart Association: www.heart.org National Heart, Lung, and Blood [place]: www.nhlbi.nih.gov Contact a health care provider if: You have trouble achieving or maintaining a healthy diet or weight. You are starting an exercise program. You are unable to stop smoking. Get help right away if: You have chest pain. You have trouble breathing. You have discomfort or pain in your jaw, neck, back, shoulder, or arm. You have any symptoms of a stroke. BE FAST is an easy way to remember the main warning signs of a stroke: ?B - Balance. Signs are dizziness, sudden trouble walking, or loss of balance. ?E - Eyes. Signs are trouble seeing or a sudden change in vision. ?F - Face. Signs are sudden weakness or numbness of the face, or the face or eyelid drooping on one side. ?A - Arms. Signs are weakness or numbness in an arm. This happens suddenly and usually on one side of the body. ?S - Speech. Signs are sudden trouble speaking, slurred speech, or trouble understanding what people say. ?T - Time. Time to call emergency services. Write down what time symptoms started. You have other signs of a stroke, such as: ?A sudden, severe headache with no known cause. ?Nausea or vomiting. ?Seizure. These symptoms may represent a serious problem that is an emergency. Do not wait to see if the symptoms will go away. Get medical help right away. Call your local emergency services (911 in the [place] Do not drive yourself to the hospital. Summary Cholesterol plaques increase your risk for heart attack and stroke. Work with your health care provider to keep your cholesterol levels in a healthy range. Eat a healthy, balanced diet, get regular exercise, and maintain a healthy weight. Do not use any products that contain nicotine or tobacco. These products include cigarettes, chewing tobacco, and vaping devices, such as e-cigarettes. Get help right away if you have any symptoms of a stroke. This information is not intended to replace advice given to you by your health care provider. Make sure you discuss any questions you have with your health care provider. Document Revised: 02/24/2023 Document Reviewed: 09/27/2021 [employer] Patient Education 2023 [employer]. 04/12/2024 11:35:31 Hypertension, Adult Hypertension, Adult High blood pressure (hypertension) is when the force of blood pumping through the arteries is too strong. The arteries are the blood vessels that carry blood from the heart throughout the body. Hypertension forces the heart to work harder to pump blood and may cause arteries to become narrow or stiff. Untreated or uncontrolled hypertension can lead to a heart attack, heart failure, a stroke, kidney disease, and other problems. A blood pressure reading consists of a higher number over a lower number. Ideally, your blood pressure should be below 120/80. The first ( top ) number is called the systolic pressure. It is a measure of the pressure in your arteries as your heart beats. The second ( bottom ) number is called the diastolic pressure. It is a measure of the pressure in your arteries as the heart relaxes. What are the causes? The exact cause of this condition is not known. There are some conditions that result in high blood pressure. What increases the risk? Certain factors may make you more likely to develop high blood pressure. Some of these risk factors are under your control, including: Smoking. Not getting enough exercise or physical activity. Being overweight. Having too much fat, sugar, calories, or salt (sodium) in your diet. Drinking too much alcohol. Other risk factors include: Having a personal history of heart disease, diabetes, high cholesterol, or kidney disease. Stress. Having a family history of high blood pressure and high cholesterol. Having obstructive sleep apnea. Age. The risk increases with age. What are the signs or symptoms? High blood pressure may not cause symptoms. Very high blood pressure (hypertensive crisis) may cause: Headache. Fast or irregular heartbeats (palpitations). Shortness of breath. Nosebleed. Nausea and vomiting. Vision changes. Severe chest pain, dizziness, and seizures. How is this diagnosed? This condition is diagnosed by measuring your blood pressure while you are seated, with your arm resting on a flat surface, your legs uncrossed, and your feet flat on the floor. The cuff of the blood pressure monitor will be placed directly against the skin of your upper arm at the level of your heart. Blood pressure should be measured at least twice using the same arm. Certain conditions can cause a difference in blood pressure between your right and left arms. If you have a high blood pressure reading during one visit or you have normal blood pressure with other risk factors, you may be asked to: Return on a different day to have your blood pressure checked again. Monitor your blood pressure at home for 1 week or longer. If you are diagnosed with hypertension, you may have other blood or imaging tests to help your health care provider understand your overall risk for other conditions. How is this treated? This condition is treated by making healthy lifestyle changes, such as eating healthy foods, exercising more, and reducing your alcohol intake. You may be referred for counseling on a healthy diet and physical activity. Your health care provider may prescribe medicine if lifestyle changes are not enough to get your blood pressure under control and if: Your systolic blood pressure is above 130. Your diastolic blood pressure is above 80. Your personal target blood pressure may vary depending on your medical conditions, your age, and other factors. Follow these instructions at home: Eating and drinking Eat a diet that is high in fiber and potassium, and low in sodium, added sugar, and fat. An example of this eating plan is called the DASH diet. DASH stands for Dietary Approaches to Stop Hypertension. To eat this way: ?Eat plenty of fresh fruits and vegetables. Try to fill one half of your plate at each meal with fruits and vegetables. ?Eat whole grains, such as whole-wheat pasta, brown rice, or whole-grain bread. Fill about one fourth of your plate with whole grains. ?Eat or drink low-fat dairy products, such as skim milk or low-fat yogurt. ?Avoid fatty cuts of meat, processed or cured meats, and poultry with skin. Fill about one fourth of your plate with lean proteins, such as fish, chicken without skin, beans, eggs, or tofu. ?Avoid pre-made and processed foods. These tend to be higher in sodium, added sugar, and fat. Reduce your daily sodium intake. Many people with hypertension should eat less than 1,500 mg of sodium a day. Do not drink alcohol if: ?Your health care provider tells you not to drink. ?You are , may be , or are planning to become . If you drink alcohol: ?Limit how much you have to: ?0 1 drink a day for women. ?0 2 drinks a day for men. ?Know how much alcohol is in your drink. In the [place] one drink equals one 12 oz bottle of beer (355 mL), one 5 oz glass of wine (148 mL), or one 1 oz glass of hard liquor (44 mL). Lifestyle Work with your health care provider to maintain a healthy body weight or to lose weight. Ask what an ideal weight is for you. Get at least 30 minutes of exercise that causes your heart to beat faster (aerobic exercise) most days of the week. Activities may include walking, swimming, or biking. Include exercise to strengthen your muscles (resistance exercise), such as Pilates or lifting weights, as part of your weekly exercise routine. Try to do these types of exercises for 30 minutes at least 3 days a week. Do not use any products that contain nicotine or tobacco. These products include cigarettes, chewing tobacco, and vaping devices, such as e-cigarettes. If you need help quitting, ask your health care provider. Monitor your blood pressure at home as told by your health care provider. Keep all follow-up visits. This is important. Medicines Take dntu-oxq-nrpshvz and prescription medicines only as told by your health care provider. Follow directions carefully. Blood pressure medicines must be taken as prescribed. Do not skip doses of blood pressure medicine. Doing this puts you at risk for problems and can make the medicine less effective. Ask your health care provider about side effects or reactions to medicines that you should watch for. Contact a health care provider if you: Think you are having a reaction to a medicine you are taking. Have headaches that keep coming back (recurring). Feel dizzy. Have swelling in your ankles. Have trouble with your vision. Get help right away if you: Develop a severe headache or confusion. Have unusual weakness or numbness. Feel faint. Have severe pain in your chest or abdomen. Vomit repeatedly. Have trouble breathing. These symptoms may be an emergency. Get help right away. Call 911. Do not wait to see if the symptoms will go away. Do not drive yourself to the hospital. Summary Hypertension is when the force of blood pumping through your arteries is too strong. If this condition is not controlled, it may put you at risk for serious complications. Your personal target blood pressure may vary depending on your medical conditions, your age, and other factors. For most people, a normal blood pressure is less than 120/80. Hypertension is treated with lifestyle changes, medicines, or a combination of both. Lifestyle changes include losing weight, eating a healthy, low-sodium diet, exercising more, and limiting alcohol. This information is not intended to replace advice given to you by your health care provider. Make sure you discuss any questions you have with your health care provider. Document Revised: 05/31/2022 Document Reviewed: 05/31/2022 [employer] Patient Education 2023 [employer]. 04/12/2024 11:35:31 Heart Disease Prevention Heart Disease Prevention Heart disease is the leading cause of in the world. Coronary artery disease is the most common cause of heart disease. This condition results when cholesterol and other substances (plaque) build up inside the hooper of the blood vessels that supply your heart muscle (arteries). This buildup in arteries is called atherosclerosis. You can take actions to lower your risk of heart disease. How can heart disease affect me? Heart disease can cause many unpleasant symptoms and complications, such as: Chest pain (angina). Reduced or blocked blood flow to your heart. This can cause: ?Irregular heartbeats (arrhythmias). ?Heart attack. ?Heart failure. What can increase my risk? The following factors may make you more likely to develop this condition: High blood pressure (hypertension). High cholesterol. A diet high in saturated fats or trans fats. Obesity. Diabetes. Having a family history of heart disease. Certain lifestyle factors, including: ?Smoking. ?Lack of physical activity. ?Drinking too much alcohol. What actions can I take to prevent heart disease? Nutrition Follow a heart-healthy eating plan as told by your health care provider. Examples include the DASH eating plan. DASH stands for Dietary Approaches to Stop Hypertension. Generally, it is recommended that you: ?Eat less salt (sodium). Ask your health care provider how much sodium is safe for you. Most people should have less than 2,300 mg each day. ?Limit unhealthy fats, such as saturated and trans fats, in your diet. You can do this by eating low-fat dairy products, eating less red meat, and avoiding processed foods. ?Eat healthy fats (omega-3 fatty acids). These are found in fish, such as mackerel or salmon. ?Eat more fruits and vegetables. You should try to fill one-half of your plate with fruits and vegetables at each meal. ?Eat more whole grains. ?Avoid foods and drinks that have added sugars. Try to limit how much added sugar you have to: ?Less than 25 grams a day for women. ?Less than 36 grams a day for men. Lifestyle Get regular exercise. This is one of the most important things you can do for your health. Generally, it is recommended that you: ?Exercise for at least 30 minutes on most days of the week (150 minutes each week). This should be exercise that causes your heart to beat faster (aerobic exercise). ?Add strength exercises on at least 2 days each week. Do not use any products that contain nicotine or tobacco. These products include cigarettes, chewing tobacco, and vaping devices, such as e-cigarettes. These can damage your heart and blood vessels. If you need help quitting, ask your health care provider. Alcohol use Do not drink alcohol if: ?Your health care provider tells you not to drink. ?You are , may be , or are planning to become . If you drink alcohol: ?Limit how much you have to: ?0 1 drink a day for women. ?0 2 drinks a day for men. ?Know how much alcohol is in your drink. In the [place] one drink equals one 12 oz bottle of beer (355 mL), one 5 oz glass of wine (148 mL), or one 1 oz glass of hard liquor (44 mL). Medicines Take [id number]-[id number] and prescription medicines only as told by your health care provider. Work with your health care provider to find out whether it is safe and beneficial for you to take aspirin daily. Make sure that you understand how much to take and what form to take. Depending on your risk factors, your health care provider may prescribe medicines to lower your risk of heart disease or to control related conditions. You may take medicine to: ?Lower cholesterol. ?Control blood pressure. ?Control diabetes. General information Keep your blood pressure under control, as recommended by your health care provider. For most healthy people, the upper number of their blood pressure (systolic) should be no higher than 120, and the lower number (diastolic) no higher than 80. Treatment may be needed if your blood pressure is higher than 130/80. Have your blood pressure checked at least every 2 years. Your health care provider may check your blood pressure more often if you have high blood pressure. After age 20, have your cholesterol checked every 4 6 years. If you have risk factors for heart disease, you may need to have it checked more often. Treatment may be needed if your cholesterol is high. Have your body mass index (BMI) checked every year. Your health care provider can calculate your BMI from your height and weight. Check your waist circumference. It should be: ?No more than 35 inches (89 cm) for women who are not . ?No more than 40 inches (102 cm) for men. Work with your health care provider to lose weight, if needed, or to maintain a healthy weight. Where to find more information: Centers for Disease Control and Prevention: www.cdc.gov/heartdisease [place] Heart Association: www.heart.org Summary Heart disease is the leading cause of in the world. Heart disease can cause chest pain, abnormal heart rhythms, heart attack, and heart failure. Some of the risk factors for heart disease include high blood pressure, high cholesterol, and smoking. You can take actions to lower your chances of developing heart disease. Work with your health care provider to reduce your risk by following a heart-healthy diet, being physically active, and controlling your weight, blood pressure, and cholesterol level. This information is not intended to replace advice given to you by your health care provider. Make sure you discuss any questions you have with your health care provider. Document Revised: 03/23/2022 Document Reviewed: 03/23/2022 [employer] Patient Education 2023 [employer]. 04/12/2024 11:35:28 Carbohydrate Counting for Diabetes Mellitus, Adult Carbohydrate Counting for Diabetes Mellitus, Adult Carbohydrate counting is a method of keeping track of how many carbohydrates you eat. Eating carbohydrates increases the amount of sugar (glucose) in the blood. Counting how many carbohydrates you eat improves how well you manage your blood glucose. This, in turn, helps you manage your diabetes. Carbohydrates are measured in grams (g) per serving. It is important to know how many carbohydrates (in grams or by serving size) you can have in each meal. This is different for every person. A dietitian can help you make a meal plan and calculate how many carbohydrates you should have at each meal and snack. What foods contain carbohydrates? Carbohydrates are found in the following foods: Grains, such as breads and cereals. Dried beans and soy products. Starchy vegetables, such as potatoes, peas, and corn. Fruit and fruit juices. Milk and yogurt. Sweets and snack foods, such as cake, cookies, candy, chips, and soft drinks. How do I count carbohydrates in foods? There are two ways to count carbohydrates in food. You can read food labels or learn standard serving sizes of foods. You can use either of these methods or a combination of both. Using the Nutrition Facts label The Nutrition Facts list is included on the labels of almost all packaged foods and beverages in the [place]. It includes: The serving size. Information about nutrients in each serving, including the grams of carbohydrate per serving. To use the Nutrition Facts, decide how many servings you will have. Then, multiply the number of servings by the number of carbohydrates per serving. The resulting number is the total grams of carbohydrates that you will be having. Learning the standard serving sizes of foods When you eat carbohydrate foods that are not packaged or do not include Nutrition Facts on the label, you need to measure the servings in order to count the grams of carbohydrates. Measure the foods that you will eat with a food scale or measuring cup, if needed. Decide how many standard-size servings you will eat. Multiply the number of servings by 15. For foods that contain carbohydrates, one serving equals 15 g of carbohydrates. ?For example, if you eat 2 cups or 10 oz (300 g) of strawberries, you will have eaten 2 servings and 30 g of carbohydrates (2 servings x 15 g = 30 g). For foods that have more than one food mixed, such as soups and casseroles, you must count the carbohydrates in each food that is included. The following list contains standard serving sizes of common carbohydrate-rich foods. Each of these servings has about 15 g of carbohydrates: 1 slice of bread. 1 six-inch (15 cm) tortilla. ? cup or 2 oz (53 g) cooked rice or pasta. cup or 3 oz (85 g) cooked or canned, drained and rinsed beans or lentils. cup or 3 oz (85 g) starchy vegetable, such as peas, corn, or squash. cup or 4 oz (120 g) hot cereal. cup or 3 oz (85 g) boiled or mashed potatoes, or or 3 oz (85 g) of a large baked potato. cup or 4 fl oz (118 mL) fruit juice. 1 cup or 8 fl oz (237 mL) milk. 1 small or 4 oz (106 g) apple. or 2 oz (63 g) of a medium banana. 1 cup or 5 oz (150 g) strawberries. 3 cups or 1 oz (28.3 g) popped popcorn. What is an example of carbohydrate counting? To calculate the grams of carbohydrates in this sample meal, follow the steps shown below. Sample meal 3 oz (85 g) chicken breast. ? cup or 4 oz (106 g) brown rice. cup or 3 oz (85 g) corn. 1 cup or 8 fl oz (237 mL) milk. 1 cup or 5 oz (150 g) strawberries with sugar-free whipped topping. Carbohydrate calculation 1.Identify the foods that contain carbohydrates: Rice. [place]. Milk. Strawberries. 2.Calculate how many servings you have of each food: 2 servings rice. 1 serving corn. 1 serving milk. 1 serving strawberries. 3.Multiply each number of servings by 15 servings rice x 15 g = 30 g. 1 serving corn x 15 g = 15 g. 1 serving milk x 15 g = 15 g. 1 serving strawberries x 15 g = 15 g. 4.Add together all of the amounts to find the total grams of carbohydrates eaten: 30 g + 15 g + 15 g + 15 g = 75 g of carbohydrates total. What are tips for following this plan? Shopping Develop a meal plan and then make a shopping list. Buy fresh and frozen vegetables, fresh and frozen fruit, dairy, eggs, beans, lentils, and whole grains. Look at food labels. Choose foods that have more fiber and less sugar. Avoid processed foods and foods with added sugars. Meal planning Aim to have the same number of grams of carbohydrates at each meal and for each snack time. Plan to have regular, balanced meals and snacks. Where to find more information [place] Diabetes Association: diabetes.org Centers for Disease Control and Prevention: cdc.gov Academy of Nutrition and Dietetics: eatright.org Association of Diabetes Care & Education Specialists: diabeteseducator.org Summary Carbohydrate counting is a method of keeping track of how many carbohydrates you eat. Eating carbohydrates increases the amount of sugar (glucose) in your blood. Counting how many carbohydrates you eat improves how well you manage your blood glucose. This helps you manage your diabetes. A dietitian can help you make a meal plan and calculate how many carbohydrates you should have at each meal and snack. This information is not intended to replace advice given to you by your health care provider. Make sure you discuss any questions you have with your health care provider. Document Revised: 02/24/2021 Document Reviewed: 02/24/2021 [employer] Patient Education 2023 [employer]. Follow Up Care 04/11/2024 15:24:53 With:Sara Flood FAM, MED Address: [facility] [place], [facility] [place] [phone]- When:Within 1 Month(s) Comments:weight loss [facility] 04-12-2024 Note Patient Education Heart Disease Prevention Heart disease is the leading cause of in the world. Coronary artery disease is the most common cause of heart disease. This condition results when cholesterol and other substances (plaque) build up inside the hooper of the blood vessels that supply your heart muscle (arteries). This buildup in arteries is called atherosclerosis. You can take actions to lower your risk of heart disease. How can heart disease affect me? Heart disease can cause many unpleasant symptoms and complications, such as: ? Chest pain (angina). ? Reduced or blocked blood flow to your heart. This can cause: ? Irregular heartbeats (arrhythmias). ? Heart attack. ? Heart failure. What can increase my risk? The following factors may make you more likely to develop this condition: ? High blood pressure (hypertension). ? High cholesterol. ? A diet high in saturated fats or trans fats. ? Obesity. ? Diabetes. ? Having a family history of heart disease. ? Certain lifestyle factors, including: ? Smoking. ? Lack of physical activity. ? Drinking too much alcohol. What actions can I take to prevent heart disease? Nutrition ? Follow a heart-healthy eating plan as told by your health care provider. Examples include the DASH eating plan. DASH stands for Dietary Approaches to Stop Hypertension. ? Generally, it is recommended that you: ? Eat less salt (sodium). Ask your health care provider how much sodium is safe for you. Most people should have less than 2,300 mg each day. ? Limit unhealthy fats, such as saturated and trans fats, in your diet. You can do this by eating low-fat dairy products, eating less red meat, and avoiding processed foods. ? Eat healthy fats (omega-3 fatty acids). These are found in fish, such as mackerel or salmon. ? Eat more fruits and vegetables. You should try to fill one-half of your plate with fruits and vegetables at each meal. ? Eat more whole grains. ? Avoid foods and drinks that have added sugars. Try to limit how much added sugar you have to: ? Less than 25 grams a day for women. ? Less than 36 grams a day for men. Lifestyle ? Get regular exercise. This is one of the most important things you can do for your health. Generally, it is recommended that you: ? Exercise for at least 30 minutes on most days of the week (150 minutes each week). This should be exercise that causes your heart to beat faster (aerobic exercise). ? Add strength exercises on at least 2 days each week. ? Do not use any products that contain nicotine or tobacco. These products include cigarettes, chewing tobacco, and vaping devices, such as e-cigarettes. These can damage your heart and blood vessels. If you need help quitting, ask your health care provider. Alcohol use ? Do not drink alcohol if: ? Your health care provider tells you not to drink. ? You are , may be , or are planning to become . ? If you drink alcohol: ? Limit how much you have to: ? 0?1 drink a day for women. ? 0?2 drinks a day for men. ? Know how much alcohol is in your drink. In the [place] one drink equals one 12 oz bottle of beer (355 mL), one 5 oz glass of wine (148 mL), or one 1? oz glass of hard liquor (44 mL). Medicines ? Take hmih-wyk-aotmjrt and prescription medicines only as told by your health care provider. ? Work with your health care provider to find out whether it is safe and beneficial for you to take aspirin daily. Make sure that you understand how much to take and what form to take. ? Depending on your risk factors, your health care provider may prescribe medicines to lower your risk of heart disease or to control related conditions. You may take medicine to: ? Lower cholesterol. ? Control blood pressure. ? Control diabetes. General information ? Keep your blood pressure under control, as recommended by your health care provider. For most healthy people, the upper number of their blood pressure (systolic) should be no higher than 120, and the lower number (diastolic) no higher than 80. Treatment may be needed if your blood pressure is higher than 130/80. ? Have your blood pressure checked at least every 2 years. Your health care provider may check your blood pressure more often if you have high blood pressure. ? After age 20, have your cholesterol checked every 4?6 years. If you have risk factors for heart disease, you may need to have it checked more often. Treatment may be needed if your cholesterol is high. ? Have your body mass index (BMI) checked every year. Your health care provider can calculate your BMI from your height and weight. ? Check your waist circumference. It should be: ? No more than 35 inches (89 cm) for women who are not . ? No more than 40 inches (102 cm) for men. ? Work with your health care provider to lose weight, if needed, or to maintain a healthy weight. Where to (more content not included)... [facility] 01-31-2024 Hospital Discharg e instructions Patient Education 01/31/2024 12:55:50 Musculoskeletal Pain Musculoskeletal Pain Musculoskeletal pain refers to aches and pains in your bones, joints, muscles, and the tissues that surround them. This pain can occur in any part of the body. It can last for a short time (acute) or a long time (chronic). A physical exam, lab tests, and imaging studies may be done to find the cause of your musculoskeletal pain. Follow these instructions at home: Lifestyle Try to control or lower your stress levels. Stress increases muscle tension and can worsen musculoskeletal pain. It is important to recognize when you are anxious or stressed and learn ways to manage it. This may include: ?Meditation or yoga. ?Cognitive or behavioral therapy. ?Acupuncture or massage therapy. You may continue all activities unless the activities cause more pain. When the pain gets better, slowly resume your normal activities. Gradually increase the intensity and duration of your activities or exercise. Managing pain, stiffness, and swelling Treatment may include medicines for pain and inflammation that are taken by mouth or applied to the skin. Take ykol-sil-edvzckb and prescription medicines only as told by your health care provider. When your pain is severe, bed rest may be helpful. Lie or sit in any position that is comfortable, but get out of bed and walk around at least every couple of hours. If directed, apply heat to the affected area as often as told by your health care provider. Use the heat source that your health care provider recommends, such as a moist heat pack or a heating pad. ?Place a towel between your skin and the heat source. ?Leave the heat on for 20 30 minutes. ?Remove the heat if your skin turns bright red. This is especially important if you are unable to feel pain, heat, or cold. You may have a greater risk of getting burned. If directed, put ice on the painful area. To do this: ?Put ice in a plastic bag. ?Place a towel between your skin and the bag. ?Leave the ice on for 20 minutes, 2 3 times a day. ?Remove the ice if your skin turns bright red. This is very important. If you cannot feel pain, heat, or cold, you have a greater risk of damage to the area. General instructions Your health care provider may recommend that you see a physical therapist. This person can help you come up with a safe exercise program. If told by your health care provider, do physical therapy exercises to improve movement and strength in the affected area. Keep all follow-up visits. This is important. This includes any physical therapy visits. Contact a health care provider if: Your pain gets worse. Medicines do not help ease your pain. You cannot use the part of your body that hurts, such as your arm, leg, or neck. You have trouble sleeping. You have trouble doing your normal activities. Get help right away if: You have a new injury and your pain is worse or different. You feel numb or you have tingling in the painful area. Summary Musculoskeletal pain refers to aches and pains in your bones, joints, muscles, and the tissues that surround them. This pain can occur in any part of the body. Your health care provider may recommend that you see a physical therapist. This person can help you come up with a safe exercise program. Do any exercises as told by your physical therapist. Lower your stress level. Stress can worsen musculoskeletal pain. Ways to lower stress may include meditation, yoga, cognitive or behavioral therapy, acupuncture, and massage therapy. This information is not intended to replace advice given to you by your health care provider. Make sure you discuss any questions you have with your health care provider. Document Revised: 11/26/2020 Document Reviewed: 11/04/2020 [employer] Patient Education 2022 [employer]. 01/31/2024 12:55:45 Paresthesia Paresthesia Paresthesia is an abnormal burning or prickling sensation. It is usually felt in the hands, arms, legs, or feet. However, it may occur in any part of the body. Usually, paresthesia is not painful. It may feel like: Tingling or numbness. Buzzing. Itching. Paresthesia may occur without any clear cause, or it may be caused by: Breathing too quickly (hyperventilation). Pressure on a nerve. An underlying medical condition. Side effects of a medicine. Nutritional deficiencies. Exposure to toxic chemicals. Most people experience temporary (transient) paresthesia at some time in their lives. For some people, it may be long-lasting (chronic) because of an underlying medical condition. If you have paresthesia that lasts a long time, you need to be evaluated by your health care provider. Follow these instructions at home: Nutrition Eat a healthy diet. This includes: Eating foods that are high in fiber, such as beans, whole grains, and fresh fruits and vegetables. Limiting foods that are high in fat and processed sugars, such as fried or sweet foods. Alcohol use Avoid or limit alcohol. Too much alcohol can cause a vitamin B deficiency, and vitamin B is needed for healthy nerves. Do not drink alcohol if: ?Your health care provider tells you not to drink. ?You are , may be , or are planning to become . If you drink alcohol: ?Limit how much you have to: ?0 1 drink a day for women. ?0 2 drinks a day for men. ?Know how much alcohol is in your drink. In the [place] one drink equals one 12 oz bottle of beer (355 mL), one 5 oz glass of wine (148 mL), or one 1 oz glass of hard liquor (44 mL). General instructions Take tvqf-kyf-jsnwyvk and prescription medicines only as told by your health care provider. Do not use any products that contain nicotine or tobacco. These products include cigarettes, chewing tobacco, and vaping devices, such as e-cigarettes. If you need help quitting, ask your health care provider. If you have diabetes, work closely with your health care provider to keep your blood sugar under control. If you have numbness in your feet: ?Check every day for signs of injury or infection. Watch for redness, warmth, and swelling. ?Wear padded socks and comfortable shoes. These help protect your feet. Keep all follow-up visits. This is important. Contact a health care provider if you: Have paresthesia that gets worse or does not go away. Have numbness after an injury. Have a burning or prickling feeling that gets worse when you walk. Have pain, cramps, or dizziness, or you faint. Develop a rash. Get help right away if you: Feel muscle weakness. Develop new weakness in an arm or leg. Have trouble walking or moving. Have problems with speech, understanding, or vision. Feel confused. Cannot control your bladder or bowel movements. These symptoms may be an emergency. Get help right away. Call 911. Do not wait to see if the symptoms will go away. Do not drive yourself to the hospital. Summary Paresthesia is an abnormal burning or prickling sensation that is usually felt in the hands, arms, legs, or feet. It may also occur in other parts of the body. Paresthesia may occur without any clear cause, or it may be caused by breathing too quickly (hyperventilation), pressure on a nerve, an underlying medical condition, side effects of a medicine, nutritional deficiencies, or exposure to toxic chemicals. If you have paresthesia that lasts a long time, you need to be evaluated by your health care provider. This information is not intended to replace advice given to you by your health care provider. Make sure you discuss any questions you have with your health care provider. Document Revised: 04/04/2022 Document Reviewed: 04/04/2022 [employer] Patient Education 2022 [employer] 01/31/2024 12:55:42 Edema Edema Edema is an abnormal buildup of fluids in the body tissues and under the skin. Swelling of the legs, feet, and ankles is a common symptom that becomes more likely as you get older. Swelling is also common in looser tissues, such as around the eyes. Pressing on the area may make a temporary dent in your skin (pitting edema). This fluid may also accumulate in your lungs (pulmonary edema). There are many possible causes of edema. Eating too much salt (sodium) and being on your feet or sitting for a long time can cause edema in your legs, feet, and ankles. Common causes of edema include: Certain medical conditions, such as heart failure, liver or kidney disease, and cancer. Weak leg blood vessels. An injury. . Medicines. Being obese. Low protein levels in the blood. Hot weather may make edema worse. Edema is usually painless. Your skin may look swollen or shiny. Follow these instructions at home: Medicines Take [id number] and prescription medicines only as told by your health care provider. Your health care provider may prescribe a medicine to help your body get rid of extra water (diuretic). Take this medicine if you are told to take it. Eating and drinking Eat a low-salt (low-sodium) diet to reduce fluid as told by your health care provider. Sometimes, eating less salt may reduce swelling. Depending on the cause of your swelling, you may need to limit how much fluid you drink (fluid restriction). General instructions Raise (elevate) the injured area above the level of your heart while you are sitting or lying down. Do not sit still or stand for long periods of time. Do not wear tight clothing. Do not wear garters on your upper legs. Exercise your legs to get your circulation going. This helps to move the fluid back into your blood vessels, and it may help the swelling go down. Wear compression stockings as told by your health care provider. These stockings help to prevent blood clots and reduce swelling in your legs. It is important that these are the correct size. These stockings should be prescribed by your health care provider to prevent possible injuries. If elastic bandages or wraps are recommended, use them as told by your health care provider. Contact a health care provider if: Your edema does not get better with treatment. You have heart, liver, or kidney disease and have symptoms of edema. You have sudden and unexplained weight gain. Get help right away if: You develop shortness of breath or chest pain. You cannot breathe when you lie down. You develop pain, redness, or warmth in the swollen areas. You have heart, liver, or kidney disease and suddenly get edema. You have a fever and your symptoms suddenly get worse. These symptoms may be an emergency. Get help right away. Call 911. Do not wait to see if the symptoms will go away. Do not drive yourself to the hospital. Summary Edema is an abnormal buildup of fluids in the body tissues and under the skin. Eating too much salt (sodium)and being on your feet or sitting for a long time can cause edema in your legs, feet, and ankles. Raise (elevate) the injured area above the level of your heart while you are sitting or lying down. Follow your health care provider's instructions about diet and how much fluid you can drink. This information is not intended to replace advice given to you by your health care provider. Make sure you discuss any questions you have with your health care provider. Document Revised: 03/28/2022 Document Reviewed: 03/28/2022 [employer] Patient Education 2022 [employer] 01/31/2024 12:55:37 Carbohydrate Counting for Diabetes Mellitus, Adult Carbohydrate Counting for Diabetes Mellitus, Adult Carbohydrate counting is a method of keeping track of how many carbohydrates you eat. Eating carbohydrates increases the amount of sugar (glucose) in the blood. Counting how many carbohydrates you eat improves how well you manage your blood glucose. This, in turn, helps you manage your diabetes. Carbohydrates are measured in grams (g) per serving. It is important to know how many carbohydrates (in grams or by serving size) you can have in each meal. This is different for every person. A dietitian can help you make a meal plan and calculate how many carbohydrates you should have at each meal and snack. What foods contain carbohydrates? Carbohydrates are found in the following foods: Grains, such as breads and cereals. Dried beans and soy products. Starchy vegetables, such as potatoes, peas, and corn. Fruit and fruit juices. Milk and yogurt. Sweets and snack foods, such as cake, cookies, candy, chips, and soft drinks. How do I count carbohydrates in foods? There are two ways to count carbohydrates in food. You can read food labels or learn standard serving sizes of foods. You can use either of these methods or a combination of both. Using the Nutrition Facts label The Nutrition Facts list is included on the labels of almost all packaged foods and beverages in the [place]. It includes: The serving size. Information about nutrients in each serving, including the grams of carbohydrate per serving. To use the Nutrition Facts, decide how many servings you will have. Then, multiply the number of servings by the number of carbohydrates per serving. The resulting number is the total grams of carbohydrates that you will be having. Learning the standard serving sizes of foods When you eat carbohydrate foods that are not packaged or do not include Nutrition Facts on the label, you need to measure the servings in order to count the grams of carbohydrates. Measure the foods that you will eat with a food scale or measuring cup, if needed. Decide how many standard-size servings you will eat. Multiply the number of servings by 15. For foods that contain carbohydrates, one serving equals 15 g of carbohydrates. ?For example, if you eat 2 cups or 10 oz (300 g) of strawberries, you will have eaten 2 servings and 30 g of carbohydrates (2 servings x 15 g = 30 g). For foods that have more than one food mixed, such as soups and casseroles, you must count the carbohydrates in each food that is included. The following list contains standard serving sizes of common carbohydrate-rich foods. Each of these servings has about 15 g of carbohydrates: 1 slice of bread. 1 six-inch (15 cm) tortilla. ? cup or 2 oz (53 g) cooked rice or pasta. cup or 3 oz (85 g) cooked or canned, drained and rinsed beans or lentils. cup or 3 oz (85 g) starchy vegetable, such as peas, corn, or squash. cup or 4 oz (120 g) hot cereal. cup or 3 oz (85 g) boiled or mashed potatoes, or or 3 oz (85 g) of a large baked potato. cup or 4 fl oz (118 mL) fruit juice. 1 cup or 8 fl oz (237 mL) milk. 1 small or 4 oz (106 g) apple. or 2 oz (63 g) of a medium banana. 1 cup or 5 oz (150 g) strawberries. 3 cups or 1 oz (28.3 g) popped popcorn. What is an example of carbohydrate counting? To calculate the grams of carbohydrates in this sample meal, follow the steps shown below. Sample meal 3 oz (85 g) chicken breast. ? cup or 4 oz (106 g) brown rice. cup or 3 oz (85 g) corn. 1 cup or 8 fl oz (237 mL) milk. 1 cup or 5 oz (150 g) strawberries with sugar-free whipped topping. Carbohydrate calculation 1.Identify the foods that contain carbohydrates: Rice. [place]. Milk. Strawberries. 2.Calculate how many servings you have of each food: 2 servings rice. 1 serving corn. 1 serving milk. 1 serving strawberries. 3.Multiply each number of servings by 15 servings rice x 15 g = 30 g. 1 serving corn x 15 g = 15 g. 1 serving milk x 15 g = 15 g. 1 serving strawberries x 15 g = 15 g. 4.Add together all of the amounts to find the total grams of carbohydrates eaten: 30 g + 15 g + 15 g + 15 g = 75 g of carbohydrates total. What are tips for following this plan? Shopping Develop a meal plan and then make a shopping list. Buy fresh and frozen vegetables, fresh and frozen fruit, dairy, eggs, beans, lentils, and whole grains. Look at food labels. Choose foods that have more fiber and less sugar. Avoid processed foods and foods with added sugars. Meal planning Aim to have the same number of grams of carbohydrates at each meal and for each snack time. Plan to have regular, balanced meals and snacks. Where to find more information [place] Diabetes Association: diabetes.org Centers for Disease Control and Prevention: cdc.gov Academy of Nutrition and Dietetics: eatright.org Association of Diabetes Care & Education Specialists: diabeteseducator.org Summary Carbohydrate counting is a method of keeping track of how many carbohydrates you eat. Eating carbohydrates increases the amount of sugar (glucose) in your blood. Counting how many carbohydrates you eat improves how well you manage your blood glucose. This helps you manage your diabetes. A dietitian can help you make a meal plan and calculate how many carbohydrates you should have at each meal and snack. This information is not intended to replace advice given to you by your health care provider. Make sure you discuss any questions you have with your health care provider. Document Revised: 02/24/2021 Document Reviewed: 02/24/2021 [employer] Patient Education 2022 [employer]. 01/31/2024 12:55:36 Calorie Counting for Weight Loss Calorie Counting for Weight Loss Calories are units of energy. Your body needs a certain number of calories from food to keep going throughout the day. When you eat or drink more calories than your body needs, your body stores the extra calories mostly as fat. When you eat or drink fewer calories than your body needs, your body morgan fat to get the energy it needs. Calorie counting means keeping track of how many calories you eat and drink each day. Calorie counting can be helpful if you need to lose weight. If you eat fewer calories than your body needs, you should lose weight. Ask your health care provider what a healthy weight is for you. For calorie counting to work, you will need to eat the right number of calories each day to lose a healthy amount of weight per week. A dietitian can help you figure out how many calories you need in a day and will suggest ways to reach your calorie goal. A healthy amount of weight to lose each week is usually 1 2 lb (0.5 0.9 kg). This usually means that your daily calorie intake should be reduced by 500 750 calories. Eating 1,200 1,500 calories a day can help most women lose weight. Eating 1,500 1,800 calories a day can help most men lose weight. What do I need to know about calorie counting? Work with your health care provider or dietitian to determine how many calories you should get each day. To meet your daily calorie goal, you will need to: Find out how many calories are in each food that you would like to eat. Try to do this before you eat. Decide how much of the food you plan to eat. Keep a food log. Do this by writing down what you ate and how many calories it had. To successfully lose weight, it is important to balance calorie counting with a healthy lifestyle that includes regular activity. Where do I find calorie information? The number of calories in a food can be found on a Nutrition Facts label. If a food does not have a Nutrition Facts label, try to look up the calories online or ask your dietitian for help. Remember that calories are listed per serving. If you choose to have more than one serving of a food, you will have to multiply the calories per serving by the number of servings you plan to eat. For example, the label on a package of bread might say that a serving size is 1 slice and that there are 90 calories in a serving. If you eat 1 slice, you will have eaten 90 calories. If you eat 2 slices, you will have eaten 180 calories. How do I keep a food log? After each time that you eat, record the following in your food log as soon as possible: What you ate. Be sure to include toppings, sauces, and other extras on the food. How much you ate. This can be measured in cups, ounces, or number of items. How many calories were in each food and drink. The total number of calories in the food you ate. Keep your food log near you, such as in a pocket-sized notebook or on an codie or website on your mobile phone. Some programs will calculate calories for you and show you how many calories you have left to meet your daily goal. What are some portion-control tips? Know how many calories are in a serving. This will help you know how many servings you can have of a certain food. Use a measuring cup to measure serving sizes. You could also try weighing out portions on a kitchen scale. With time, you will be able to estimate serving sizes for some foods. Take time to put servings of different foods on your favorite plates or in your favorite bowls and cups so you know what a serving looks like. Try not to eat straight from a food's packaging, such as from a bag or box. Eating straight from the package makes it hard to see how much you are eating and can lead to overeating. Put the amount you would like to eat in a cup or on a plate to make sure you are eating the right portion. Use smaller plates, glasses, and bowls for smaller portions and to prevent overeating. Try not to multitask. For example, avoid watching TV or using your computer while eating. If it is time to eat, sit down at a table and enjoy your food. This will help you recognize when you are full. It will also help you be more mindful of what and how much you are eating. What are tips for following this plan? Reading food labels Check the calorie count compared with the serving size. The serving size may be smaller than what you are used to eating. Check the source of the calories. Try to choose foods that are high in protein, fiber, and vitamins, and low in saturated fat, trans fat, and sodium. Shopping Read nutrition labels while you shop. This will help you make healthy decisions about which foods to buy. Pay attention to nutrition labels for low-fat or fat-free foods. These foods sometimes have the same number of calories or more calories than the full-fat versions. They also often have added sugar, starch, or salt to make up for flavor that was removed with the fat. Make a grocery list of lower-calorie foods and stick to it. Cooking Try to cook your favorite foods in a healthier way. For example, try baking instead of frying. Use low-fat dairy products. Meal planning Use more fruits and vegetables. One-half of your plate should be fruits and vegetables. Include lean proteins, such as chicken, turkey, and fish. Lifestyle Each week, aim to do one of the followin minutes of moderate exercise, such as walking. 75 minutes of vigorous exercise, such as running. General information Know how many calories are in the foods you eat most often. This will help you calculate calorie counts faster. Find a way of tracking calories that works for you. Get creative. Try different apps or programs if writing down calories does not work for you. What foods should I eat? Eat nutritious foods. It is better to have a nutritious, high-calorie food, such as an avocado, than a food with few nutrients, such as a bag of potato chips. Use your calories on foods and drinks that will fill you up and will not leave you hungry soon after eating. ?Examples of foods that fill you up are nuts and nut butters, vegetables, lean proteins, and high-fiber foods such as whole grains. High-fiber foods are foods with more than 5 g of fiber per serving. Pay attention to calories in drinks. Low-calorie drinks include water and unsweetened drinks. The items listed above may not be a complete list of foods and beverages you can eat. Contact a dietitian for more information. What foods should I limit? Limit foods or drinks that are not good sources of vitamins, minerals, or protein or that are high in unhealthy fats. These include: Candy. Other sweets. Sodas, specialty coffee drinks, alcohol, and juice. The items listed above may not be a complete list of foods and beverages you should avoid. Contact a dietitian for more information. How do I count calories when eating out? Pay attention to portions. Often, portions are much larger when eating out. Try these tips to keep portions smaller: ?Consider sharing a meal instead of getting your own. ?If you get your own meal, eat only half of it. Before you start eating, ask for a container and put half of your meal into it. ?When available, consider ordering smaller portions from the menu instead of full portions. Pay attention to your food and drink choices. Knowing the way food is cooked and what is included with the meal can help you eat fewer calories. ?If calories are listed on the menu, choose the lower-calorie options. ?Choose dishes that include vegetables, fruits, whole grains, low-fat dairy products, and lean proteins. ?Choose items that are boiled, broiled, grilled, or steamed. Avoid items that are buttered, battered, fried, or served with cream sauce. Items labeled as crispy are usually fried, unless stated otherwise. ?Choose water, low-fat milk, unsweetened iced tea, or other drinks without added sugar. If you want an alcoholic beverage, choose a lower-calorie option, such as a glass of wine or light beer. ?Ask for dressings, sauces, and syrups on the side. These are usually high in calories, so you should limit the amount you eat. ?If you want a salad, choose a garden salad and ask for grilled meats. Avoid extra toppings such as hopper, cheese, or fried items. Ask for the dressing on the side, or ask for olive oil and vinegar or lemon to use as dressing. Estimate how many servings of a food you are given. Knowing serving sizes will help you be aware of how much food you are eating at restaurants. Where to find more information Centers for Disease Control and Prevention: www.cdc.gov U.[place]. Department of Agriculture: myplate.gov Summary Calorie counting means keeping track of how many calories you eat and drink each day. If you eat fewer calories than your body needs, you should lose weight. A healthy amount of weight to lose per week is usually 1 2 lb (0.5 0.9 kg). This usually means reducing your daily calorie intake by 500 750 calories. The number of calories in a food can be found on a Nutrition Facts label. If a food does not have a Nutrition Facts label, try to look up the calories online or ask your dietitian for help. Use smaller plates, glasses, and bowls for smaller portions and to prevent overeating. Use your calories on foods and drinks that will fill you up and not leave you hungry shortly after a meal. This information is not intended to replace advice given to you by your health care provider. Make sure you discuss any questions you have with your health care provider. Document Revised: 09/03/2020 Document Reviewed: 09/03/2020 [employer] Education 2022 [employer]. 01/31/2024 12:55:35 BMI for Adults BMI for Adults What is BMI? Body mass index (BMI) is a number that is calculated from a person's weight and height. BMI can help estimate how much of a person's weight is composed of fat. BMI does not measure body fat directly. Rather, it is an alternative to procedures that directly measure body fat, which can be difficult and expensive. BMI can help identify people who may be at higher risk for certain medical problems. What are BMI measurements used for? BMI is used as a screening tool to identify possible weight problems. It helps determine whether a person is obese, overweight, a healthy weight, or underweight. BMI is useful for: Identifying a weight problem that may be related to a medical condition or may increase the risk for medical problems. Promoting changes, such as changes in diet and exercise, to help reach a healthy weight. BMI screening can be repeated to see if these changes are working. How is BMI calculated? BMI involves measuring your weight in relation to your height. Both height and weight are measured, and the BMI is calculated from those numbers. This can be done either in [place] or metric measurements. Note that charts and online BMI calculators are available to help you find your BMI quickly and easily without having to do these calculations yourself. To calculate your BMI in [place] measurements: 1.Measure your weight in pounds (lb). 2.Multiply the number of pounds by 703. For example, for a person who weighs 180 lb, multiply that number by 703, which equals 126,540. 3.Measure your height in inches. Then multiply that number by itself to get a measurement called inches squared. For example, for a person who is 70 inches tall, the inches squared measurement is 70 inches x 70 inches, which equals 4,900 inches squared. 4.Divide the total from step 2 (number of lb x 703) by the total from step 3 (inches squared): 126,540 4,900 = 25.8. This is your BMI. To calculate your BMI in metric measurements: 1.Measure your weight in kilograms (kg). 2.Measure your height in meters (m). Then multiply that number by itself to get a measurement called meters squared. For example, for a person who is 1.75 m tall, the meters squared measurement is 1.75 m x 1.75 m, which is equal to 3.1 meters squared. 3.Divide the number of kilograms (your weight) by the meters squared number. In this example: 70 3.1 = 22.6. This is your BMI. What do the results mean? BMI charts are used to identify whether you are underweight, normal weight, overweight, or obese. The following guidelines will be used: Underweight: BMI less than 18.5. Normal weight: BMI between 18.5 and 24.9. Overweight: BMI between 25 and 29.9. Obese: BMI of 30 or above. Keep these notes in mind: Weight includes both fat and muscle, so someone with a muscular build, such as an athlete, may have a BMI that is higher than 24.9. In cases like these, BMI is not an accurate measure of body fat. To determine if excess body fat is the cause of a BMI of 25 or higher, further assessments may need to be done by a health care provider. BMI is usually interpreted in the same way for men and women. Where to find more information For more information about BMI, including tools to quickly calculate your BMI, go to these websites: Centers for Disease Control and Prevention: www.cdc.gov [place] Heart Association: www.heart.org National Heart, Lung, and Blood [place]: www.nhlbi.nih.gov Summary Body mass index (BMI) is a number that is calculated from a person's weight and height. BMI may help estimate how much of a person's weight is composed of fat. BMI can help identify those who may be at higher risk for certain medical problems. BMI can be measured using [place] measurements or metric measurements. BMI charts are used to identify whether you are underweight, normal weight, overweight, or obese. This information is not intended to replace advice given to you by your health care provider. Make sure you discuss any questions you have with your health care provider. Document Revised: 04/15/2020 Document Reviewed: 02/21/2020 [employer] Education 2022 [employer]. 01/31/2024 12:55:32 Hypothyroidism Hypothyroidism Hypothyroidism is when the thyroid gland does not make enough of certain hormones. This is called an underactive thyroid. The thyroid gland is a small gland located in the lower front part of the neck, just in front of the windpipe (trachea). This gland makes hormones that help control how the body uses food for energy (metabolism) as well as how the heart and brain function. These hormones also play a role in keeping your bones strong. When the thyroid is underactive, it produces too little of the hormones thyroxine (T4) and triiodothyronine (T3). What are the causes? This condition may be caused by: Dede's disease. This is a disease in which the body's disease-fighting system (immune system) attacks the thyroid gland. This is the most common cause. Viral infections. . Certain medicines. defects. Problems with a gland in the center of the brain (pituitary gland). Lack of enough iodine in the diet. Other causes may include: Past radiation treatments to the head or neck for cancer. Past treatment with radioactive iodine. Past exposure to radiation in the environment. Past surgical removal of part or all of the thyroid. What increases the risk? You are more likely to develop this condition if: You are female. You have a family history of thyroid conditions. You use a medicine called lithium. You take medicines that affect the immune system (immunosuppressants). What are the signs or symptoms? Common symptoms of this condition include: Not being able to tolerate cold. Feeling as though you have no energy (lethargy). Lack of appetite. Constipation. Sadness or depression. Weight gain that is not explained by a change in diet or exercise habits. Menstrual irregularity. Dry skin, coarse hair, or brittle nails. Other symptoms may include: Muscle pain. Slowing of thought processes. Poor memory. How is this diagnosed? This condition may be diagnosed based on: Your symptoms, your medical history, and a physical exam. Blood tests. You may also have imaging tests, such as an ultrasound or MRI. How is this treated? This condition is treated with medicine that replaces the thyroid hormones that your body does not make. After you begin treatment, it may take several weeks for symptoms to go away. Follow these instructions at home: Take llsa-xrt-byqryri and prescription medicines only as told by your health care provider. If you start taking any new medicines, tell your health care provider. Keep all follow-up visits as told by your health care provider. This is important. ?As your condition improves, your dosage of thyroid hormone medicine may change. ?You will need to have blood tests regularly so that your health care provider can monitor your condition. Contact a health care provider if: Your symptoms do not get better with treatment. You are taking thyroid hormone replacement medicine and you: ?Sweat a lot. ?Have tremors. ?Feel anxious. ?Lose weight rapidly. ?Cannot tolerate heat. ?Have emotional swings. ?Have diarrhea. ?Feel weak. Get help right away if: You have chest pain. You have an irregular heartbeat. You have a rapid heartbeat. You have difficulty breathing. These symptoms may be an emergency. Get help right away. Call 911. Do not wait to see if the symptoms will go away. Do not drive yourself to the hospital. Summary Hypothyroidism is when the thyroid gland does not make enough of certain hormones (it is underactive). When the thyroid is underactive, it produces too little of the hormones thyroxine (T4) and triiodothyronine (T3). The most common cause is Dede's disease, a disease in which the body's disease-fighting system (immune system) attacks the thyroid gland. The condition can also be caused by viral infections, medicine, , or past radiation treatment to the head or neck. Symptoms may include weight gain, dry skin, constipation, feeling as though you do not have energy, and not being able to tolerate cold. This condition is treated with medicine to replace the thyroid hormones that your body does not make. This information is not intended to replace advice given to you by your health care provider. Make sure you discuss any questions you have with your health care provider. Document Revised: 07/26/2022 Document Reviewed: 07/26/2022 [employer] Patient Education 2022 [employer]. 01/31/2024 12:55:30 Hypertension, Adult Hypertension, Adult High blood pressure (hypertension) is when the force of blood pumping through the arteries is too strong. The arteries are the blood vessels that carry blood from the heart throughout the body. Hypertension forces the heart to work harder to pump blood and may cause arteries to become narrow or stiff. Untreated or uncontrolled hypertension can lead to a heart attack, heart failure, a stroke, kidney disease, and other problems. A blood pressure reading consists of a higher number over a lower number. Ideally, your blood pressure should be below 120/80. The first ( top ) number is called the systolic pressure. It is a measure of the pressure in your arteries as your heart beats. The second ( bottom ) number is called the diastolic pressure. It is a measure of the pressure in your arteries as the heart relaxes. What are the causes? The exact cause of this condition is not known. There are some conditions that result in high blood pressure. What increases the risk? Certain factors may make you more likely to develop high blood pressure. Some of these risk factors are under your control, including: Smoking. Not getting enough exercise or physical activity. Being overweight. Having too much fat, sugar, calories, or salt (sodium) in your diet. Drinking too much alcohol. Other risk factors include: Having a personal history of heart disease, diabetes, high cholesterol, or kidney disease. Stress. Having a family history of high blood pressure and high cholesterol. Having obstructive sleep apnea. Age. The risk increases with age. What are the signs or symptoms? High blood pressure may not cause symptoms. Very high blood pressure (hypertensive crisis) may cause: Headache. Fast or irregular heartbeats (palpitations). Shortness of breath. Nosebleed. Nausea and vomiting. Vision changes. Severe chest pain, dizziness, and seizures. How is this diagnosed? This condition is diagnosed by measuring your blood pressure while you are seated, with your arm resting on a flat surface, your legs uncrossed, and your feet flat on the floor. The cuff of the blood pressure monitor will be placed directly against the skin of your upper arm at the level of your heart. Blood pressure should be measured at least twice using the same arm. Certain conditions can cause a difference in blood pressure between your right and left arms. If you have a high blood pressure reading during one visit or you have normal blood pressure with other risk factors, you may be asked to: Return on a different day to have your blood pressure checked again. Monitor your blood pressure at home for 1 week or longer. If you are diagnosed with hypertension, you may have other blood or imaging tests to help your health care provider understand your overall risk for other conditions. How is this treated? This condition is treated by making healthy lifestyle changes, such as eating healthy foods, exercising more, and reducing your alcohol intake. You may be referred for counseling on a healthy diet and physical activity. Your health care provider may prescribe medicine if lifestyle changes are not enough to get your blood pressure under control and if: Your systolic blood pressure is above 130. Your diastolic blood pressure is above 80. Your personal target blood pressure may vary depending on your medical conditions, your age, and other factors. Follow these instructions at home: Eating and drinking Eat a diet that is high in fiber and potassium, and low in sodium, added sugar, and fat. An example of this eating plan is called the DASH diet. DASH stands for Dietary Approaches to Stop Hypertension. To eat this way: ?Eat plenty of fresh fruits and vegetables. Try to fill one half of your plate at each meal with fruits and vegetables. ?Eat whole grains, such as whole-wheat pasta, brown rice, or whole-grain bread. Fill about one fourth of your plate with whole grains. ?Eat or drink low-fat dairy products, such as skim milk or low-fat yogurt. ?Avoid fatty cuts of meat, processed or cured meats, and poultry with skin. Fill about one fourth of your plate with lean proteins, such as fish, chicken without skin, beans, eggs, or tofu. ?Avoid pre-made and processed foods. These tend to be higher in sodium, added sugar, and fat. Reduce your daily sodium intake. Many people with hypertension should eat less than 1,500 mg of sodium a day. Do not drink alcohol if: ?Your health care provider tells you not to drink. ?You are , may be , or are planning to become . If you drink alcohol: ?Limit how much you have to: ?0 1 drink a day for women. ?0 2 drinks a day for men. ?Know how much alcohol is in your drink. In the [place] one drink equals one 12 oz bottle of beer (355 mL), one 5 oz glass of wine (148 mL), or one 1 oz glass of hard liquor (44 mL). Lifestyle Work with your health care provider to maintain a healthy body weight or to lose weight. Ask what an ideal weight is for you. Get at least 30 minutes of exercise that causes your heart to beat faster (aerobic exercise) most days of the week. Activities may include walking, swimming, or biking. Include exercise to strengthen your muscles (resistance exercise), such as Pilates or lifting weights, as part of your weekly exercise routine. Try to do these types of exercises for 30 minutes at least 3 days a week. Do not use any products that contain nicotine or tobacco. These products include cigarettes, chewing tobacco, and vaping devices, such as e-cigarettes. If you need help quitting, ask your health care provider. Monitor your blood pressure at home as told by your health care provider. Keep all follow-up visits. This is important. Medicines Take [id number]-[id number] and prescription medicines only as told by your health care provider. Follow directions carefully. Blood pressure medicines must be taken as prescribed. Do not skip doses of blood pressure medicine. Doing this puts you at risk for problems and can make the medicine less effective. Ask your health care provider about side effects or reactions to medicines that you should watch for. Contact a health care provider if you: Think you are having a reaction to a medicine you are taking. Have headaches that keep coming back (recurring). Feel dizzy. Have swelling in your ankles. Have trouble with your vision. Get help right away if you: Develop a severe headache or confusion. Have unusual weakness or numbness. Feel faint. Have severe pain in your chest or abdomen. Vomit repeatedly. Have trouble breathing. These symptoms may be an emergency. Get help right away. Call 911. Do not wait to see if the symptoms will go away. Do not drive yourself to the hospital. Summary Hypertension is when the force of blood pumping through your arteries is too strong. If this condition is not controlled, it may put you at risk for serious complications. Your personal target blood pressure may vary depending on your medical conditions, your age, and other factors. For most people, a normal blood pressure is less than 120/80. Hypertension is treated with lifestyle changes, medicines, or a combination of both. Lifestyle changes include losing weight, eating a healthy, low-sodium diet, exercising more, and limiting alcohol. This information is not intended to replace advice given to you by your health care provider. Make sure you discuss any questions you have with your health care provider. Document Revised: 05/31/2022 Document Reviewed: 05/31/2022 [employer] Patient Education 2022 [employer]. 01/31/2024 12:55:30 Heart Disease Prevention Heart Disease Prevention Heart disease is the leading cause of in the world. Coronary artery disease is the most common cause of heart disease. This condition results when cholesterol and other substances (plaque) build up inside the hooper of the blood vessels that supply your heart muscle (arteries). This buildup in arteries is called atherosclerosis. You can take actions to lower your risk of heart disease. How can heart disease affect me? Heart disease can cause many unpleasant symptoms and complications, such as: Chest pain (angina). Reduced or blocked blood flow to your heart. This can cause: ?Irregular heartbeats (arrhythmias). ?Heart attack. ?Heart failure. What can increase my risk? The following factors may make you more likely to develop this condition: High blood pressure (hypertension). High cholesterol. A diet high in saturated fats or trans fats. Obesity. Diabetes. Having a family history of heart disease. Certain lifestyle factors, including: ?Smoking. ?Lack of physical activity. ?Drinking too much alcohol. What actions can I take to prevent heart disease? Nutrition Follow a heart-healthy eating plan as told by your health care provider. Examples include the DASH eating plan. DASH stands for Dietary Approaches to Stop Hypertension. Generally, it is recommended that you: ?Eat less salt (sodium). Ask your health care provider how much sodium is safe for you. Most people should have less than 2,300 mg each day. ?Limit unhealthy fats, such as saturated and trans fats, in your diet. You can do this by eating low-fat dairy products, eating less red meat, and avoiding processed foods. ?Eat healthy fats (omega-3 fatty acids). These are found in fish, such as mackerel or salmon. ?Eat more fruits and vegetables. You should try to fill one-half of your plate with fruits and vegetables at each meal. ?Eat more whole grains. ?Avoid foods and drinks that have added sugars. Try to limit how much added sugar you have to: ?Less than 25 grams a day for women. ?Less than 36 grams a day for men. Lifestyle Get regular exercise. This is one of the most important things you can do for your health. Generally, it is recommended that you: ?Exercise for at least 30 minutes on most days of the week (150 minutes each week). This should be exercise that causes your heart to beat faster (aerobic exercise). ?Add strength exercises on at least 2 days each week. Do not use any products that contain nicotine or tobacco. These products include cigarettes, chewing tobacco, and vaping devices, such as e-cigarettes. These can damage your heart and blood vessels. If you need help quitting, ask your health care provider. Alcohol use Do not drink alcohol if: ?Your health care provider tells you not to drink. ?You are , may be , or are planning to become . If you drink alcohol: ?Limit how much you have to: ?0 1 drink a day for women. ?0 2 drinks a day for men. ?Know how much alcohol is in your drink. In the [place] one drink equals one 12 oz bottle of beer (355 mL), one 5 oz glass of wine (148 mL), or one 1 oz glass of hard liquor (44 mL). Medicines Take [id number] and prescription medicines only as told by your health care provider. Work with your health care provider to find out whether it is safe and beneficial for you to take aspirin daily. Make sure that you understand how much to take and what form to take. Depending on your risk factors, your health care provider may prescribe medicines to lower your risk of heart disease or to control related conditions. You may take medicine to: ?Lower cholesterol. ?Control blood pressure. ?Control diabetes. General information Keep your blood pressure under control, as recommended by your health care provider. For most healthy people, the upper number of their blood pressure (systolic) should be no higher than 120, and the lower number (diastolic) no higher than 80. Treatment may be needed if your blood pressure is higher than 130/80. Have your blood pressure checked at least every 2 years. Your health care provider may check your blood pressure more often if you have high blood pressure. After age 20, have your cholesterol checked every 4 6 years. If you have risk factors for heart disease, you may need to have it checked more often. Treatment may be needed if your cholesterol is high. Have your body mass index (BMI) checked every year. Your health care provider can calculate your BMI from your height and weight. Check your waist circumference. It should be: ?No more than 35 inches (89 cm) for women who are not . ?No more than 40 inches (102 cm) for men. Work with your health care provider to lose weight, if needed, or to maintain a healthy weight. Where to find more information: Centers for Disease Control and Prevention: www.cdc.gov/heartdisease [place] Heart Association: www.heart.org Summary Heart disease is the leading cause of in the world. Heart disease can cause chest pain, abnormal heart rhythms, heart attack, and heart failure. Some of the risk factors for heart disease include high blood pressure, high cholesterol, and smoking. You can take actions to lower your chances of developing heart disease. Work with your health care provider to reduce your risk by following a heart-healthy diet, being physically active, and controlling your weight, blood pressure, and cholesterol level. This information is not intended to replace advice given to you by your health care provider. Make sure you discuss any questions you have with your health care provider. Document Revised: 03/23/2022 Document Reviewed: 03/23/2022 [employer] Patient Education 2022 [employer]. 01/31/2024 12:55:29 DASH Eating Plan DASH Eating Plan DASH stands for Dietary Approaches to Stop Hypertension. The DASH eating plan is a healthy eating plan that has been shown to: Reduce high blood pressure (hypertension). Reduce your risk for type 2 diabetes, heart disease, and stroke. Help with weight loss. What are tips for following this plan? Reading food labels Check food labels for the amount of salt (sodium) per serving. Choose foods with less than 5 percent of the Daily Value of sodium. Generally, foods with less than 300 milligrams (mg) of sodium per serving fit into this eating plan. To find whole grains, look for the word whole as the first word in the ingredient list. Shopping Buy products labeled as low-sodium or no salt added. Buy fresh foods. Avoid canned foods and pre-made or frozen meals. Cooking Avoid adding salt when cooking. Use salt-free seasonings or herbs instead of table salt or sea salt. Check with your health care provider or pharmacist before using salt substitutes. Do not banerjee foods. Cook foods using healthy methods such as baking, boiling, grilling, roasting, and broiling instead. Cook with heart-healthy oils, such as olive, canola, avocado, soybean, or sunflower oil. Meal planning Eat a balanced diet that includes: ?4 or more servings of fruits and 4 or more servings of vegetables each day. Try to fill one-half of your plate with fruits and vegetables. ?6 8 servings of whole grains each day. ?Less than 6 oz (170 g) of lean meat, poultry, or fish each day. A 3-oz (85-g) serving of meat is about the same size as a deck of cards. One egg equals 1 oz (28 g). ?2 3 servings of low-fat dairy each day. One serving is 1 cup (237 mL). ?1 serving of nuts, seeds, or beans 5 times each week. ?2 3 servings of heart-healthy fats. Healthy fats called omega-3 fatty acids are found in foods such as walnuts, flaxseeds, fortified milks, and eggs. These fats are also found in cold-water fish, such as sardines, salmon, and mackerel. Limit how much you eat of: ?Canned or prepackaged foods. ?Food that is high in trans fat, such as some fried foods. ?Food that is high in saturated fat, such as fatty meat. ?Desserts and other sweets, sugary drinks, and other foods with added sugar. ?Full-fat dairy products. Do not salt foods before eating. Do not eat more than 4 egg yolks a week. Try to eat at least 2 vegetarian meals a week. Eat more home-cooked food and less restaurant, buffet, and fast food. Lifestyle When eating at a restaurant, ask that your food be prepared with less salt or no salt, if possible. If you drink alcohol: ?Limit how much you use to: ?0 1 drink a day for women who are not . ?0 2 drinks a day for men. ?Be aware of how much alcohol is in your drink. In the [place] one drink equals one 12 oz bottle of beer (355 mL), one 5 oz glass of wine (148 mL), or one 1 oz glass of hard liquor (44 mL). General information Avoid eating more than 2,300 mg of salt a day. If you have hypertension, you may need to reduce your sodium intake to 1,500 mg a day. Work with your health care provider to maintain a healthy body weight or to lose weight. Ask what an ideal weight is for you. Get at least 30 minutes of exercise that causes your heart to beat faster (aerobic exercise) most days of the week. Activities may include walking, swimming, or biking. Work with your health care provider or dietitian to adjust your eating plan to your individual calorie needs. What foods should I eat? Fruits All fresh, dried, or frozen fruit. Canned fruit in natural juice (without added sugar). Vegetables Fresh or frozen vegetables (raw, steamed, roasted, or grilled). Low-sodium or reduced-sodium tomato and vegetable juice. Low-sodium or reduced-sodium tomato sauce and tomato paste. Low-sodium or reduced-sodium canned vegetables. Grains Whole-grain or whole-wheat bread. Whole-grain or whole-wheat pasta. Brown rice. Oatmeal. Quinoa. Bulgur. Whole-grain and low-sodium cereals. Sary bread. Low-fat, low-sodium crackers. Whole-wheat flour tortillas. Meats and other proteins Skinless chicken or turkey. Ground chicken or turkey. Pork with fat trimmed off. Fish and seafood. Egg whites. Dried beans, peas, or lentils. Unsalted nuts, nut butters, and seeds. Unsalted canned beans. Lean cuts of beef with fat trimmed off. Low-sodium, lean precooked or cured meat, such as sausages or meat loaves. Dairy Low-fat (1%) or fat-free (skim) milk. Reduced-fat, low-fat, or fat-free cheeses. Nonfat, low-sodium ricotta or cottage cheese. Low-fat or nonfat yogurt. Low-fat, low-sodium cheese. Fats and oils Soft margarine without trans fats. Vegetable oil. Reduced-fat, low-fat, or light mayonnaise and salad dressings (reduced-sodium). Canola, safflower, olive, avocado, soybean, and sunflower oils. Avocado. Seasonings and condiments Herbs. Spices. Seasoning mixes without salt. Other foods Unsalted popcorn and pretzels. Fat-free sweets. The items listed above may not be a complete list of foods and beverages you can eat. Contact a dietitian for more information. What foods should I avoid? Fruits Canned fruit in a light or heavy syrup. Fried fruit. Fruit in cream or butter sauce. Vegetables Creamed or fried vegetables. Vegetables in a cheese sauce. Regular canned vegetables (not low-sodium or reduced-sodium). Regular canned tomato sauce and paste (not low-sodium or reduced-sodium). Regular tomato and vegetable juice (not low-sodium or reduced-sodium). Pickles. Olives. Grains Baked goods made with fat, such as croissants, muffins, or some breads. Dry pasta or rice meal packs. Meats and other proteins Fatty cuts of meat. Ribs. Fried meat. Hopper. Bologna, salami, and other precooked or cured meats, such as sausages or meat loaves. Fat from the back of a pig (fatback). Bratwurst. Salted nuts and seeds. Canned beans with added salt. Canned or smoked fish. Whole eggs or egg yolks. Chicken or turkey with skin. Dairy Whole or 2% milk, cream, and [id number]. Whole or full-fat cream cheese. Whole-fat or sweetened yogurt. Full-fat cheese. Nondairy creamers. Whipped toppings. Processed cheese and cheese spreads. Fats and oils Butter. Stick margarine. Lard. Shortening. Ghee. Hopper fat. Tropical oils, such as coconut, palm kernel, or palm oil. Seasonings and condiments Onion salt, garlic salt, seasoned salt, table salt, and sea salt. Worcestershire sauce. Tartar sauce. Barbecue sauce. Teriyaki sauce. Soy sauce, including reduced-sodium. Steak sauce. Canned and packaged gravies. Fish sauce. Oyster sauce. Cocktail sauce. Store-bought horseradish. Ketchup. Mustard. Meat flavorings and tenderizers. Bouillon cubes. Hot sauces. Pre-made or packaged marinades. Pre-made or packaged taco seasonings. Relishes. Regular salad dressings. Other foods Salted popcorn and pretzels. The items listed above may not be a complete list of foods and beverages you should avoid. Contact a dietitian for more information. Where to find more information National Heart, Lung, and Blood [place]: www.nhlbi.nih.gov [place] Heart Association: www.heart.org Academy of Nutrition and Dietetics: www.eatright.org National Kidney Foundation: www.kidney.org Summary The DASH eating plan is a healthy eating plan that has been shown to reduce high blood pressure (hypertension). It may also reduce your risk for type 2 diabetes, heart disease, and stroke. When on the DASH eating plan, aim to eat more fresh fruits and vegetables, whole grains, lean proteins, low-fat dairy, and heart-healthy fats. With the DASH eating plan, you should limit salt (sodium) intake to 2,300 mg a day. If you have hypertension, you may need to reduce your sodium intake to 1,500 mg a day. Work with your health care provider or dietitian to adjust your eating plan to your individual calorie needs. This information is not intended to replace advice given to you by your health care provider. Make sure you discuss any questions you have with your health care provider. Document Revised: 06/26/2020 Document Reviewed: 06/26/2020 [employer] Patient Education 2022 [employer]. Follow Up Care 08/02/2023 11:59:29 With:Sara Flood [facility], [facility] Address: [address], [address] [facility] [address] [id number]- When:Within 1 Month(s) Comments:f/u weight check, htn, neck check [facility] 09-12-2023 History of Presen t illness Narrative Reason for Appointment Established patient: Recheck verruca Second Complaint: JACINTO treatment #2 Third Complaint: NEW COMPLAINT: Contusion LT second toe History of Present Illness Established patient presents for recheck of verruca to the LT heel, LT plantar forefoot, RT toe 4 and LT thumb. Patient denies any new lesions. Second complaint: Patient wishes to proceed with JACINTO treatment #2 today. Third Complaint: NEW COMPLAINT: Patient missed her step this afternoon and hit the left second toe into the step. Pain (5-6/10) with movement and if wearing shoes. Review of Systems General: Chills denies. Fatigue denies. Fever denies. Night sweats denies. Endocrine: Hyperpigmentation denies. Diabetes denies. Weakness denies. Cardiovascular: Chest pain denies. Shortness of breath denies. Gastrointestinal: Constipation denies. Diarrhea denies. Nausea denies. Vomiting denies. Hematology: Anemia denies. Bleeding problems denies. Easy bruising denies. Musculoskeletal: Bone/joint symptoms admits. Leg cramps denies. Peripheral Vascular: Edema denies. Rest pain denies. Varicose veins denies. Raynaud's denies. Skin: Ulceration denies. Nail changes denies. Rash denies. Skin lesion(s) denies. Neurologic: Dizziness denies. Gait abnormality denies. Headache denies. Tingling/Numbness denies. Examination General Examination: GENERAL EXAMINATION: awake, aware of surroundings, in no acute distress. Vascular: DORSALIS PEDIS PULSE: 2/4, bilaterally. POSTERIOR TIBIAL PULSE: 2/4, bilaterally. TEMPERATURE GRADIENT: warm to cool. EDEMA: none. CAPILLARY FILLING TIME(sec): capillary fill intact bilateral digits less than 3 secs. Neurologic: VIBRATORY: normal. SEMMES-ELISABET 5.07 MONOFILAMENT: normal. Dermatologic: SKIN FINDINGS: texture, turgor, hair growth, within normal limits with no sign of skin breakdown, infection, inflammatory or infectious process. HYPERKERATOSIS: Bilateral hallux: right > left. NAIL PATHOLOGY: digits 1-5 bilateral are intact. VERRUCA: Left plantar heel x 2, left plantar foot fourth MPJ region x 4, right plantar fourth toe x 1 mosaic, left medial thumb. Ankle / Foot: RANGE OF MOTION: unremarkable. 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 right second metatarsal base fracture is healed with bone callus observed on x-ray, arthritis left midfoot, bilateral hallux limitus. PAIN ELICITED WITH PALPATION OF: NEW COMPLAINT: left second toe pain ORTHOPEDIC: left plantar fasciitis - resolved, left peroneal brevis insertion tendonitis - resolved. NEW COMPLAINT: contusion of left second toe - date of injury 09-12-2023 SHOE GEAR EVALUATION: [employer] athletic shoes without custom foot orthotics. Imaging Studies: FOOT X-RAY: 09-12-2023: Left foot x-rays, weightbearing AP/MO/LAT views, obtained today shows: no visible sign of any pathology on all three views left 2nd toe: No fracture, stress fracture, periosteal reaction, gas, foreign body, infection, arthritis, tumor, impaction or cartilage damage special attention also given to the 2nd MPJ and surrounding anatomy. 09-19-2022: LEFT foot x-rays, weightbearing AP/MO/LAT views, obtained today shows: patient has no visible pathology to the area of concern: No fracture, dislocation, periosteal reaction, gas, foreign body, infection, arthritis, or tumor. Lateral view shows first metatarsal was elevated however. 02-10-2022 RIGHT FOOT weightbearing radiographs 3 view: AP, medial oblique, lateral were taken to observe patient's location of pain on metatarsals 2, 3, 4 area of second metatarsal base fracture is healing well with periosteal reaction noted minimally medially. Overall improvement noted from previous radiographs. Please note third and fourth metatarsal showed no palpable to at this point. No other new pathology appreciated. 01-26-2022: Right foot x-rays, weightbearing AP/MO/LAT views, obtained today shows:AP and oblique x-ray shows second metatarsal base fracture has remained healed are still visible signs of for the fracture was located however there is no return or worsening of new fracture or complications at this time. Patient still has arthritis to the first metatarsal phalangeal joint with spur formation noted as well. Lateral view shows pes planovalgus with second metatarsal base fracture shows good sign of healing with bone callus formation noted. 12-23-2021: Right foot x-rays, weightbearing AP/MO views, obtained today shows: right foot second metatarsal base fracture shows improvement to the site of fracture with bone callus formation noted there is no visible fracture line transversely or obliquely only minimal lateral cortex on the oblique view. 12-02-2021: RIGHT foot x-rays, non-weightbearing AP/MO/LAT views, obtained today shows: lateral view shows normal specific pathology or fractures overlap other metatarsals. Bone callus formation is noted. AP and oblique view show improve fracture healing to the base of the second metatarsal base fracture metatarsal still paralleled the third metatarsal. On AP view second IM spaces look narrow however not appreciated on the oblique view. There is no sign at this point of nonunion. Comparison of films obtained from 10-18-21 show improved healing. 11-18-2021: Right foot x-rays, non-weightbearing AP/MO/LAT views, obtained today shows: AP and oblique views show improved healing with minimal bone callus formation at the base of the second metatarsal minimally displaced fracture. There is no visible sign of nonunion, delayed union, or malunion. Comparison with past films was performed and demonstrated to patient. 10-18-2021: Weightbearing radiographs 3 views AP, medial oblique, lateral were obtained 10-18-2021 shows AP x-ray shows minimally displaced second metatarsal base fracture with angulation from proximal medial to distal lateral there does not appear to be significant shortening at this time or displacement that would require surgical intervention. Degenerative joint disease noted to the first metatarsal phalangeal joint right foot minimal lateral deviation of hallux, lateral view shows pes planovalgus right foot small posterior calcaneal spur. Oblique view shows minimal fracture line second metatarsal base right foot.. Assessments 1. Left toe pain - M79.675 - NEW COMPLAINT: Left second toe 2. Contusion left toe - S90.122A - NEW COMPLAINT: Left second toe, Date of injury 2-6-2024 3. Verruca plantaris - B07.0 - LT plantar heel x 2, LT plantar foot fourth MPJ Region x 4, RT plantar fourth toe x 1 mosaic 4. Verruca - B07.9 - LT thumb x 1 5. Hallux limitus of left foot - M20.5X2 6. Primary osteoarthritis of left foot - M19.072 7. Hallux limitus of right foot - M20.5X1 8. Pre-ulcerative callus - L84 - Bilateral hallux 9. Hallux valgus (acquired), left foot - M20.12 10. Hallux valgus (acquired), right foot - M20.11 11. Heel spur, right - M77.31, Posterior: Minimal 12. Osteoarthritis of foot joint - M19.079, Right foot first MPJ 13. 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 Pes planovalgus - Q66.6, Right: Minimal Treatment Left toe pain/contusion 1. Patient presents for follow up examination with NEW complaint of left second toe pain due to contusion earlier today. 2. X-rays, weightbearing left foot AP/MO/LAT views, obtained today were reviewed with patient. 3. Patient advised to wear good, supportive shoes with her custom foot orthotics for all weightbearing activity. 4. Patient should perform activity modification to prevent pain to the left second toe. 5. Patient may apply ice, 10 minutes off and on, to left second toe for pain and inflammation control. 6. Patient may take Aleve, one tablet twice a day with food, for pain and inflammation control. 7. Patient may apply Biofreeze topically to left second toe three times a day for pain reduction. 8. Reappoint if symptoms persist or worsen. Verruca plantaris 1. Patient presents today for follow up examination with complaint of verruca plantaris left plantar foot and heel along with plantar fourth toe. 2. Patient wishes to proceed with JACINTO Microwave Therapy today. Patient is aware this is not a covered service through patient's insurance and patient will be financially responsible. The appropriate paperwork and ABN form was signed. 3. Please see scanned report for details of patient's JACINTO Microwave Therapy treatment # 2 which was performed today. 4. Patient advised not to walk barefoot and inspect feet daily for any signs of new verruca. 5. Patient was advised that no treatment is necessary between now and next month's office visit. 6. Reappoint in one month for JACINTO Microwave Therapy treatment # 3. Verruca 1. Patient presents today for follow up examination with complaint of verruca left thumb x1 2. Patient wishes to proceed with JACINTO Microwave Therapy today. Patient is aware this is not a covered service through patient's insurance and patient will be financially responsible. The appropriate paperwork and ABN form was signed. 3. Please see scanned report for details of patient's JACINTO Microwave Therapy treatment # 2 which was performed today. 4. Patient advised to check hands, fingers daily for any signs of new verruca. 5. Patient was advised that no treatment is necessary between now and next month's office visit. 6. Reappoint in one month for JACINTO Microwave Therapy treatment # 3. Entered by Yolis Clement acting as scribe for Dr. Miguel Cai DPM,MS, FACFAS. Signature Yolis Clement RT(R) Date 09-12-2023. Time 5:19 PM. The documentation recorded by the scribe accurately reflects the service(s) I personally performed and the decisions I made. documented in this encounter [facility] 08-17-2023 Hospital Discharg e instructions Patient Education 08/17/2023 13:39:46 BMI for Adults BMI for Adults What is BMI? Body mass index (BMI) is a number that is calculated from a person's weight and height. BMI can help estimate how much of a person's weight is composed of fat. BMI does not measure body fat directly. Rather, it is an alternative to procedures that directly measure body fat, which can be difficult and expensive. BMI can help identify people who may be at higher risk for certain medical problems. What are BMI measurements used for? BMI is used as a screening tool to identify possible weight problems. It helps determine whether a person is obese, overweight, a healthy weight, or underweight. BMI is useful for: Identifying a weight problem that may be related to a medical condition or may increase the risk for medical problems. Promoting changes, such as changes in diet and exercise, to help reach a healthy weight. BMI screening can be repeated to see if these changes are working. How is BMI calculated? BMI involves measuring your weight in relation to your height. Both height and weight are measured, and the BMI is calculated from those numbers. This can be done either in [place] or metric measurements. Note that charts and online BMI calculators are available to help you find your BMI quickly and easily without having to do these calculations yourself. To calculate your BMI in [place] measurements: 1.Measure your weight in pounds (lb). 2.Multiply the number of pounds by 703. For example, for a person who weighs 180 lb, multiply that number by 703, which equals 126,540. 3.Measure your height in inches. Then multiply that number by itself to get a measurement called inches squared. For example, for a person who is 70 inches tall, the inches squared measurement is 70 inches x 70 inches, which equals 4,900 inches squared. 4.Divide the total from step 2 (number of lb x 703) by the total from step 3 (inches squared): 126,540 4,900 = 25.8. This is your BMI. To calculate your BMI in metric measurements: 1.Measure your weight in kilograms (kg). 2.Measure your height in meters (m). Then multiply that number by itself to get a measurement called meters squared. For example, for a person who is 1.75 m tall, the meters squared measurement is 1.75 m x 1.75 m, which is equal to 3.1 meters squared. 3.Divide the number of kilograms (your weight) by the meters squared number. In this example: 70 3.1 = 22.6. This is your BMI. What do the results mean? BMI charts are used to identify whether you are underweight, normal weight, overweight, or obese. The following guidelines will be used: Underweight: BMI less than 18.5. Normal weight: BMI between 18.5 and 24.9. Overweight: BMI between 25 and 29.9. Obese: BMI of 30 or above. Keep these notes in mind: Weight includes both fat and muscle, so someone with a muscular build, such as an athlete, may have a BMI that is higher than 24.9. In cases like these, BMI is not an accurate measure of body fat. To determine if excess body fat is the cause of a BMI of 25 or higher, further assessments may need to be done by a health care provider. BMI is usually interpreted in the same way for men and women. Where to find more information For more information about BMI, including tools to quickly calculate your BMI, go to these websites: Centers for Disease Control and Prevention: www.cdc.gov [place] Heart Association: www.heart.org National Heart, Lung, and Blood [place]: www.nhlbi.nih.gov Summary Body mass index (BMI) is a number that is calculated from a person's weight and height. BMI may help estimate how much of a person's weight is composed of fat. BMI can help identify those who may be at higher risk for certain medical problems. BMI can be measured using [place] measurements or metric measurements. BMI charts are used to identify whether you are underweight, normal weight, overweight, or obese. This information is not intended to replace advice given to you by your health care provider. Make sure you discuss any questions you have with your health care provider. Document Revised: 04/15/2020 Document Reviewed: 02/21/2020 [employer] Patient Education 2022 [employer]. 08/17/2023 13:39:44 DASH Eating Plan DASH Eating Plan DASH stands for Dietary Approaches to Stop Hypertension. The DASH eating plan is a healthy eating plan that has been shown to: Reduce high blood pressure (hypertension). Reduce your risk for type 2 diabetes, heart disease, and stroke. Help with weight loss. What are tips for following this plan? Reading food labels Check food labels for the amount of salt (sodium) per serving. Choose foods with less than 5 percent of the Daily Value of sodium. Generally, foods with less than 300 milligrams (mg) of sodium per serving fit into this eating plan. To find whole grains, look for the word whole as the first word in the ingredient list. Shopping Buy products labeled as low-sodium or no salt added. Buy fresh foods. Avoid canned foods and pre-made or frozen meals. Cooking Avoid adding salt when cooking. Use salt-free seasonings or herbs instead of table salt or sea salt. Check with your health care provider or pharmacist before using salt substitutes. Do not banerjee foods. Cook foods using healthy methods such as baking, boiling, grilling, roasting, and broiling instead. Cook with heart-healthy oils, such as olive, canola, avocado, soybean, or sunflower oil. Meal planning Eat a balanced diet that includes: ?4 or more servings of fruits and 4 or more servings of vegetables each day. Try to fill one-half of your plate with fruits and vegetables. ?6 8 servings of whole grains each day. ?Less than 6 oz (170 g) of lean meat, poultry, or fish each day. A 3-oz (85-g) serving of meat is about the same size as a deck of cards. One egg equals 1 oz (28 g). ?2 3 servings of low-fat dairy each day. One serving is 1 cup (237 mL). ?1 serving of nuts, seeds, or beans 5 times each week. ?2 3 servings of heart-healthy fats. Healthy fats called omega-3 fatty acids are found in foods such as walnuts, flaxseeds, fortified milks, and eggs. These fats are also found in cold-water fish, such as sardines, salmon, and mackerel. Limit how much you eat of: ?Canned or prepackaged foods. ?Food that is high in trans fat, such as some fried foods. ?Food that is high in saturated fat, such as fatty meat. ?Desserts and other sweets, sugary drinks, and other foods with added sugar. ?Full-fat dairy products. Do not salt foods before eating. Do not eat more than 4 egg yolks a week. Try to eat at least 2 vegetarian meals a week. Eat more home-cooked food and less restaurant, buffet, and fast food. Lifestyle When eating at a restaurant, ask that your food be prepared with less salt or no salt, if possible. If you drink alcohol: ?Limit how much you use to: ?0 1 drink a day for women who are not . ?0 2 drinks a day for men. ?Be aware of how much alcohol is in your drink. In the [place] one drink equals one 12 oz bottle of beer (355 mL), one 5 oz glass of wine (148 mL), or one 1 oz glass of hard liquor (44 mL). General information Avoid eating more than 2,300 mg of salt a day. If you have hypertension, you may need to reduce your sodium intake to 1,500 mg a day. Work with your health care provider to maintain a healthy body weight or to lose weight. Ask what an ideal weight is for you. Get at least 30 minutes of exercise that causes your heart to beat faster (aerobic exercise) most days of the week. Activities may include walking, swimming, or biking. Work with your health care provider or dietitian to adjust your eating plan to your individual calorie needs. What foods should I eat? Fruits All fresh, dried, or frozen fruit. Canned fruit in natural juice (without added sugar). Vegetables Fresh or frozen vegetables (raw, steamed, roasted, or grilled). Low-sodium or reduced-sodium tomato and vegetable juice. Low-sodium or reduced-sodium tomato sauce and tomato paste. Low-sodium or reduced-sodium canned vegetables. Grains Whole-grain or whole-wheat bread. Whole-grain or whole-wheat pasta. Brown rice. Oatmeal. Quinoa. Bulgur. Whole-grain and low-sodium cereals. Sary bread. Low-fat, low-sodium crackers. Whole-wheat flour tortillas. Meats and other proteins Skinless chicken or turkey. Ground chicken or turkey. Pork with fat trimmed off. Fish and seafood. Egg whites. Dried beans, peas, or lentils. Unsalted nuts, nut butters, and seeds. Unsalted canned beans. Lean cuts of beef with fat trimmed off. Low-sodium, lean precooked or cured meat, such as sausages or meat loaves. Dairy Low-fat (1%) or fat-free (skim) milk. Reduced-fat, low-fat, or fat-free cheeses. Nonfat, low-sodium ricotta or cottage cheese. Low-fat or nonfat yogurt. Low-fat, low-sodium cheese. Fats and oils Soft margarine without trans fats. Vegetable oil. Reduced-fat, low-fat, or light mayonnaise and salad dressings (reduced-sodium). Canola, safflower, olive, avocado, soybean, and sunflower oils. Avocado. Seasonings and condiments Herbs. Spices. Seasoning mixes without salt. Other foods Unsalted popcorn and pretzels. Fat-free sweets. The items listed above may not be a complete list of foods and beverages you can eat. Contact a dietitian for more information. What foods should I avoid? Fruits Canned fruit in a light or heavy syrup. Fried fruit. Fruit in cream or butter sauce. Vegetables Creamed or fried vegetables. Vegetables in a cheese sauce. Regular canned vegetables (not low-sodium or reduced-sodium). Regular canned tomato sauce and paste (not low-sodium or reduced-sodium). Regular tomato and vegetable juice (not low-sodium or reduced-sodium). Pickles. Olives. Grains Baked goods made with fat, such as croissants, muffins, or some breads. Dry pasta or rice meal packs. Meats and other proteins Fatty cuts of meat. Ribs. Fried meat. Hopper. Bologna, salami, and other precooked or cured meats, such as sausages or meat loaves. Fat from the back of a pig (fatback). Bratwurst. Salted nuts and seeds. Canned beans with added salt. Canned or smoked fish. Whole eggs or egg yolks. Chicken or turkey with skin. Dairy Whole or 2% milk, cream, and [id number]. Whole or full-fat cream cheese. Whole-fat or sweetened yogurt. Full-fat cheese. Nondairy creamers. Whipped toppings. Processed cheese and cheese spreads. Fats and oils Butter. Stick margarine. Lard. Shortening. Ghee. Hopper fat. Tropical oils, such as coconut, palm kernel, or palm oil. Seasonings and condiments Onion salt, garlic salt, seasoned salt, table salt, and sea salt. Worcestershire sauce. Tartar sauce. Barbecue sauce. Teriyaki sauce. Soy sauce, including reduced-sodium. Steak sauce. Canned and packaged gravies. Fish sauce. Oyster sauce. Cocktail sauce. Store-bought horseradish. Ketchup. Mustard. Meat flavorings and tenderizers. Bouillon cubes. Hot sauces. Pre-made or packaged marinades. Pre-made or packaged taco seasonings. Relishes. Regular salad dressings. Other foods Salted popcorn and pretzels. The items listed above may not be a complete list of foods and beverages you should avoid. Contact a dietitian for more information. Where to find more information National Heart, Lung, and Blood [place]: www.nhlbi.nih.gov [place] Heart Association: www.heart.org Academy of Nutrition and Dietetics: www.eatright.org National Kidney Foundation: www.kidney.org Summary The DASH eating plan is a healthy eating plan that has been shown to reduce high blood pressure (hypertension). It may also reduce your risk for type 2 diabetes, heart disease, and stroke. When on the DASH eating plan, aim to eat more fresh fruits and vegetables, whole grains, lean proteins, low-fat dairy, and heart-healthy fats. With the DASH eating plan, you should limit salt (sodium) intake to 2,300 mg a day. If you have hypertension, you may need to reduce your sodium intake to 1,500 mg a day. Work with your health care provider or dietitian to adjust your eating plan to your individual calorie needs. This information is not intended to replace advice given to you by your health care provider. Make sure you discuss any questions you have with your health care provider. Document Revised: 06/26/2020 Document Reviewed: 06/26/2020 [employer] Patient Education 2022 [employer]. 08/17/2023 13:39:43 Carbohydrate Counting for Diabetes Mellitus, Adult Carbohydrate Counting for Diabetes Mellitus, Adult Carbohydrate counting is a method of keeping track of how many carbohydrates you eat. Eating carbohydrates increases the amount of sugar (glucose) in the blood. Counting how many carbohydrates you eat improves how well you manage your blood glucose. This, in turn, helps you manage your diabetes. Carbohydrates are measured in grams (g) per serving. It is important to know how many carbohydrates (in grams or by serving size) you can have in each meal. This is different for every person. A dietitian can help you make a meal plan and calculate how many carbohydrates you should have at each meal and snack. What foods contain carbohydrates? Carbohydrates are found in the following foods: Grains, such as breads and cereals. Dried beans and soy products. Starchy vegetables, such as potatoes, peas, and corn. Fruit and fruit juices. Milk and yogurt. Sweets and snack foods, such as cake, cookies, candy, chips, and soft drinks. How do I count carbohydrates in foods? There are two ways to count carbohydrates in food. You can read food labels or learn standard serving sizes of foods. You can use either of these methods or a combination of both. Using the Nutrition Facts label The Nutrition Facts list is included on the labels of almost all packaged foods and beverages in the [place]. It includes: The serving size. Information about nutrients in each serving, including the grams of carbohydrate per serving. To use the Nutrition Facts, decide how many servings you will have. Then, multiply the number of servings by the number of carbohydrates per serving. The resulting number is the total grams of carbohydrates that you will be having. Learning the standard serving sizes of foods When you eat carbohydrate foods that are not packaged or do not include Nutrition Facts on the label, you need to measure the servings in order to count the grams of carbohydrates. Measure the foods that you will eat with a food scale or measuring cup, if needed. Decide how many standard-size servings you will eat. Multiply the number of servings by 15. For foods that contain carbohydrates, one serving equals 15 g of carbohydrates. ?For example, if you eat 2 cups or 10 oz (300 g) of strawberries, you will have eaten 2 servings and 30 g of carbohydrates (2 servings x 15 g = 30 g). For foods that have more than one food mixed, such as soups and casseroles, you must count the carbohydrates in each food that is included. The following list contains standard serving sizes of common carbohydrate-rich foods. Each of these servings has about 15 g of carbohydrates: 1 slice of bread. 1 six-inch (15 cm) tortilla. ? cup or 2 oz (53 g) cooked rice or pasta. cup or 3 oz (85 g) cooked or canned, drained and rinsed beans or lentils. cup or 3 oz (85 g) starchy vegetable, such as peas, corn, or squash. cup or 4 oz (120 g) hot cereal. cup or 3 oz (85 g) boiled or mashed potatoes, or or 3 oz (85 g) of a large baked potato. cup or 4 fl oz (118 mL) fruit juice. 1 cup or 8 fl oz (237 mL) milk. 1 small or 4 oz (106 g) apple. or 2 oz (63 g) of a medium banana. 1 cup or 5 oz (150 g) strawberries. 3 cups or 1 oz (28.3 g) popped popcorn. What is an example of carbohydrate counting? To calculate the grams of carbohydrates in this sample meal, follow the steps shown below. Sample meal 3 oz (85 g) chicken breast. ? cup or 4 oz (106 g) brown rice. cup or 3 oz (85 g) corn. 1 cup or 8 fl oz (237 mL) milk. 1 cup or 5 oz (150 g) strawberries with sugar-free whipped topping. Carbohydrate calculation 1.Identify the foods that contain carbohydrates: Rice. [place]. Milk. Strawberries. 2.Calculate how many servings you have of each food: 2 servings rice. 1 serving corn. 1 serving milk. 1 serving strawberries. 3.Multiply each number of servings by 15 servings rice x 15 g = 30 g. 1 serving corn x 15 g = 15 g. 1 serving milk x 15 g = 15 g. 1 serving strawberries x 15 g = 15 g. 4.Add together all of the amounts to find the total grams of carbohydrates eaten: 30 g + 15 g + 15 g + 15 g = 75 g of carbohydrates total. What are tips for following this plan? Shopping Develop a meal plan and then make a shopping list. Buy fresh and frozen vegetables, fresh and frozen fruit, dairy, eggs, beans, lentils, and whole grains. Look at food labels. Choose foods that have more fiber and less sugar. Avoid processed foods and foods with added sugars. Meal planning Aim to have the same number of grams of carbohydrates at each meal and for each snack time. Plan to have regular, balanced meals and snacks. Where to find more information [place] Diabetes Association: diabetes.org Centers for Disease Control and Prevention: cdc.gov Academy of Nutrition and Dietetics: eatright.org Association of Diabetes Care & Education Specialists: diabeteseducator.org Summary Carbohydrate counting is a method of keeping track of how many carbohydrates you eat. Eating carbohydrates increases the amount of sugar (glucose) in your blood. Counting how many carbohydrates you eat improves how well you manage your blood glucose. This helps you manage your diabetes. A dietitian can help you make a meal plan and calculate how many carbohydrates you should have at each meal and snack. This information is not intended to replace advice given to you by your health care provider. Make sure you discuss any questions you have with your health care provider. Document Revised: 02/24/2021 Document Reviewed: 02/24/2021 [employer] Patient Education 2022 [employer]. 08/17/2023 13:39:42 Calorie Counting for Weight Loss Calorie Counting for Weight Loss Calories are units of energy. Your body needs a certain number of calories from food to keep going throughout the day. When you eat or drink more calories than your body needs, your body stores the extra calories mostly as fat. When you eat or drink fewer calories than your body needs, your body morgan fat to get the energy it needs. Calorie counting means keeping track of how many calories you eat and drink each day. Calorie counting can be helpful if you need to lose weight. If you eat fewer calories than your body needs, you should lose weight. Ask your health care provider what a healthy weight is for you. For calorie counting to work, you will need to eat the right number of calories each day to lose a healthy amount of weight per week. A dietitian can help you figure out how many calories you need in a day and will suggest ways to reach your calorie goal. A healthy amount of weight to lose each week is usually 1 2 lb (0.5 0.9 kg). This usually means that your daily calorie intake should be reduced by 500 750 calories. Eating 1,200 1,500 calories a day can help most women lose weight. Eating 1,500 1,800 calories a day can help most men lose weight. What do I need to know about calorie counting? Work with your health care provider or dietitian to determine how many calories you should get each day. To meet your daily calorie goal, you will need to: Find out how many calories are in each food that you would like to eat. Try to do this before you eat. Decide how much of the food you plan to eat. Keep a food log. Do this by writing down what you ate and how many calories it had. To successfully lose weight, it is important to balance calorie counting with a healthy lifestyle that includes regular activity. Where do I find calorie information? The number of calories in a food can be found on a Nutrition Facts label. If a food does not have a Nutrition Facts label, try to look up the calories online or ask your dietitian for help. Remember that calories are listed per serving. If you choose to have more than one serving of a food, you will have to multiply the calories per serving by the number of servings you plan to eat. For example, the label on a package of bread might say that a serving size is 1 slice and that there are 90 calories in a serving. If you eat 1 slice, you will have eaten 90 calories. If you eat 2 slices, you will have eaten 180 calories. How do I keep a food log? After each time that you eat, record the following in your food log as soon as possible: What you ate. Be sure to include toppings, sauces, and other extras on the food. How much you ate. This can be measured in cups, ounces, or number of items. How many calories were in each food and drink. The total number of calories in the food you ate. Keep your food log near you, such as in a pocket-sized notebook or on an codie or website on your mobile phone. Some programs will calculate calories for you and show you how many calories you have left to meet your daily goal. What are some portion-control tips? Know how many calories are in a serving. This will help you know how many servings you can have of a certain food. Use a measuring cup to measure serving sizes. You could also try weighing out portions on a kitchen scale. With time, you will be able to estimate serving sizes for some foods. Take time to put servings of different foods on your favorite plates or in your favorite bowls and cups so you know what a serving looks like. Try not to eat straight from a food's packaging, such as from a bag or box. Eating straight from the package makes it hard to see how much you are eating and can lead to overeating. Put the amount you would like to eat in a cup or on a plate to make sure you are eating the right portion. Use smaller plates, glasses, and bowls for smaller portions and to prevent overeating. Try not to multitask. For example, avoid watching TV or using your computer while eating. If it is time to eat, sit down at a table and enjoy your food. This will help you recognize when you are full. It will also help you be more mindful of what and how much you are eating. What are tips for following this plan? Reading food labels Check the calorie count compared with the serving size. The serving size may be smaller than what you are used to eating. Check the source of the calories. Try to choose foods that are high in protein, fiber, and vitamins, and low in saturated fat, trans fat, and sodium. Shopping Read nutrition labels while you shop. This will help you make healthy decisions about which foods to buy. Pay attention to nutrition labels for low-fat or fat-free foods. These foods sometimes have the same number of calories or more calories than the full-fat versions. They also often have added sugar, starch, or salt to make up for flavor that was removed with the fat. Make a grocery list of lower-calorie foods and stick to it. Cooking Try to cook your favorite foods in a healthier way. For example, try baking instead of frying. Use low-fat dairy products. Meal planning Use more fruits and vegetables. One-half of your plate should be fruits and vegetables. Include lean proteins, such as chicken, turkey, and fish. Lifestyle Each week, aim to do one of the followin minutes of moderate exercise, such as walking. 75 minutes of vigorous exercise, such as running. General information Know how many calories are in the foods you eat most often. This will help you calculate calorie counts faster. Find a way of tracking calories that works for you. Get creative. Try different apps or programs if writing down calories does not work for you. What foods should I eat? Eat nutritious foods. It is better to have a nutritious, high-calorie food, such as an avocado, than a food with few nutrients, such as a bag of potato chips. Use your calories on foods and drinks that will fill you up and will not leave you hungry soon after eating. ?Examples of foods that fill you up are nuts and nut butters, vegetables, lean proteins, and high-fiber foods such as whole grains. High-fiber foods are foods with more than 5 g of fiber per serving. Pay attention to calories in drinks. Low-calorie drinks include water and unsweetened drinks. The items listed above may not be a complete list of foods and beverages you can eat. Contact a dietitian for more information. What foods should I limit? Limit foods or drinks that are not good sources of vitamins, minerals, or protein or that are high in unhealthy fats. These include: Candy. Other sweets. Sodas, specialty coffee drinks, alcohol, and juice. The items listed above may not be a complete list of foods and beverages you should avoid. Contact a dietitian for more information. How do I count calories when eating out? Pay attention to portions. Often, portions are much larger when eating out. Try these tips to keep portions smaller: ?Consider sharing a meal instead of getting your own. ?If you get your own meal, eat only half of it. Before you start eating, ask for a container and put half of your meal into it. ?When available, consider ordering smaller portions from the menu instead of full portions. Pay attention to your food and drink choices. Knowing the way food is cooked and what is included with the meal can help you eat fewer calories. ?If calories are listed on the menu, choose the lower-calorie options. ?Choose dishes that include vegetables, fruits, whole grains, low-fat dairy products, and lean proteins. ?Choose items that are boiled, broiled, grilled, or steamed. Avoid items that are buttered, battered, fried, or served with cream sauce. Items labeled as crispy are usually fried, unless stated otherwise. ?Choose water, low-fat milk, unsweetened iced tea, or other drinks without added sugar. If you want an alcoholic beverage, choose a lower-calorie option, such as a glass of wine or light beer. ?Ask for dressings, sauces, and syrups on the side. These are usually high in calories, so you should limit the amount you eat. ?If you want a salad, choose a garden salad and ask for grilled meats. Avoid extra toppings such as hopper, cheese, or fried items. Ask for the dressing on the side, or ask for olive oil and vinegar or lemon to use as dressing. Estimate how many servings of a food you are given. Knowing serving sizes will help you be aware of how much food you are eating at restaurants. Where to find more information Centers for Disease Control and Prevention: www.cdc.gov U.S. Department of Agriculture: myplate.gov Summary Calorie counting means keeping track of how many calories you eat and drink each day. If you eat fewer calories than your body needs, you should lose weight. A healthy amount of weight to lose per week is usually 1 2 lb (0.5 0.9 kg). This usually means reducing your daily calorie intake by 500 750 calories. The number of calories in a food can be found on a Nutrition Facts label. If a food does not have a Nutrition Facts label, try to look up the calories online or ask your dietitian for help. Use smaller plates, glasses, and bowls for smaller portions and to prevent overeating. Use your calories on foods and drinks that will fill you up and not leave you hungry shortly after a meal. This information is not intended to replace advice given to you by your health care provider. Make sure you discuss any questions you have with your health care provider. Document Revised: 09/03/2020 Document Reviewed: 09/03/2020 [employer] Patient Education 2022 [employer]. 08/17/2023 13:39:32 Contact Dermatitis Contact Dermatitis Dermatitis is redness, soreness, and swelling (inflammation) of the skin. Contact dermatitis is a reaction to certain substances that touch the skin. Many different substances can cause contact dermatitis. There are two types of contact dermatitis: Irritant contact dermatitis. This type is caused by something that irritates your skin, such as having dry hands from washing them too often with soap. This type does not require previous exposure to the substance for a reaction to occur. This is the most common type. Allergic contact dermatitis. This type is caused by a substance that you are allergic to, such as poison darryl. This type occurs when you have been exposed to the substance (allergen) and develop a sensitivity to it. Dermatitis may develop soon after your first exposure to the allergen, or it may not develop until the next time you are exposed and every time thereafter. What are the causes? Irritant contact dermatitis is most commonly caused by exposure to: Makeup. Soaps. Detergents. Bleaches. Acids. Metal salts, such as nickel. Allergic contact dermatitis is most commonly caused by exposure to: Poisonous plants. Chemicals. Jewelry. Latex. Medicines. Preservatives in products, such as clothing. What increases the risk? You are more likely to develop this condition if you have: A job that exposes you to irritants or allergens. Certain medical conditions, such as asthma or eczema. What are the signs or symptoms? Symptoms of this condition may occur on your body anywhere the irritant has touched you or is touched by you. Symptoms include: ?Dryness or flaking. ?Redness. ?Cracks. ?Itching. ?Pain or a burning feeling. ?Blisters. ?Drainage of small amounts of blood or clear fluid from skin cracks. With allergic contact dermatitis, there may also be swelling in areas such as the eyelids, mouth, or genitals. How is this diagnosed? This condition is diagnosed with a medical history and physical exam. A patch skin test may be performed to help determine the cause. If the condition is related to your job, you may need to see an occupational physician. How is this treated? This condition is treated by checking for the cause of the reaction and protecting your skin from further contact. Treatment may also include: Steroid creams or ointments. Oral steroid medicines may be needed in more severe cases. Antibiotic medicines or antibacterial ointments, if a skin infection is present. Antihistamine lotion or an antihistamine taken by mouth to ease itching. A bandage (dressing). Follow these instructions at home: Skin care Moisturize your skin as needed. Apply cool compresses to the affected areas. Try applying baking soda paste to your skin. Stir water into baking soda until it reaches a paste-like consistency. Do not scratch your skin, and avoid friction to the affected area. Avoid the use of soaps, perfumes, and dyes. Medicines Take or apply pwnp-uvs-dwzqxco and prescription medicines only as told by your health care provider. If you were prescribed an antibiotic medicine, take or apply the antibiotic as told by your health care provider. Do not stop using the antibiotic even if your condition improves. Bathing Try taking a bath with: ?Epsom salts. Follow the instructions on the packaging. You can get these at your local pharmacy or grocery store. ?Baking soda. Pour a small amount into the bath as directed by your health care provider. ?Colloidal oatmeal. Follow the instructions on the packaging. You can get this at your local pharmacy or grocery store. Bathe less frequently, such as every other day. Bathe in lukewarm water. Avoid using hot water. Bandage care If you were given a bandage (dressing), change it as told by your health care provider. Wash your hands with soap and water before and after you change your dressing. If soap and water are not available, use hand wet mix operator. General instructions Avoid the substance that caused your reaction. If you do not know what caused it, keep a journal to try to track what caused it. Write down: ?What you eat. ?What cosmetic products you use. ?What you drink. ?What you wear in the affected area. This includes jewelry. Check the affected areas every day for signs of infection. Check for: ?More redness, swelling, or pain. ?More fluid or blood. ?Warmth. ?Pus or a bad smell. Keep all follow-up visits as told by your health care provider. This is important. Contact a health care provider if: Your condition does not improve with treatment. Your condition gets worse. You have signs of infection such as swelling, tenderness, redness, soreness, or warmth in the affected area. You have a fever. You have new symptoms. Get help right away if: You have a severe headache, neck pain, or neck stiffness. You vomit. You feel very sleepy. You notice red streaks coming from the affected area. Your bone or joint underneath the affected area becomes painful after the skin has healed. The affected area turns darker. You have difficulty breathing. Summary Dermatitis is redness, soreness, and swelling (inflammation) of the skin. Contact dermatitis is a reaction to certain substances that touch the skin. Symptoms of this condition may occur on your body anywhere the irritant has touched you or is touched by you. This condition is treated by figuring out what caused the reaction and protecting your skin from further contact. Treatment may also include medicines and skin care. Avoid the substance that caused your reaction. If you do not know what caused it, keep a journal to try to track what caused it. Contact a health care provider if your condition gets worse or you have signs of infection such as swelling, tenderness, redness, soreness, or warmth in the affected area. This information is not intended to replace advice given to you by your health care provider. Make sure you discuss any questions you have with your health care provider. Document Revised: 05/09/2022 Document Reviewed: 05/09/2022 [employer] Patient Education 2022 [employer]. [facility] 08-02-2023 Hospital Discharg e instructions Patient Education 08/02/2023 12:00:08 Fatigue Fatigue If you have fatigue, you feel tired all the time and have a lack of energy or a lack of motivation. Fatigue may make it difficult to start or complete tasks because of exhaustion. Occasional or mild fatigue is often a normal response to activity or life. However, long-term (chronic) or extreme fatigue may be a symptom of a medical condition such as: Depression. Not having enough red blood cells or hemoglobin in the blood (anemia). A problem with a small gland located in the lower front part of the neck (thyroid disorder). Rheumatologic conditions. These are problems related to the body's defense system (immune system). Infections, especially certain viral infections. Fatigue can also lead to negative health outcomes over time. Follow these instructions at home: Medicines Take oaxl-xmg-nlnsdxm and prescription medicines only as told by your health care provider. Take a multivitamin if told by your health care provider. Do not use herbal or dietary supplements unless they are approved by your health care provider. Eating and drinking Avoid heavy meals in the evening. Eat a well-balanced diet, which includes lean proteins, whole grains, plenty of fruits and vegetables, and low-fat dairy products. Avoid eating or drinking too many products with caffeine in them. Avoid alcohol. Drink enough fluid to keep your urine pale yellow. Activity Exercise regularly, as told by your health care provider. Use or practice techniques to help you relax, such as yoga, mik chi, meditation, or massage therapy. Lifestyle Change situations that cause you stress. Try to keep your work and personal schedules in balance. Do not use recreational or illegal drugs. General instructions Monitor your fatigue for any changes. Go to bed and get up at the same time every day. Avoid fatigue by pacing yourself during the day and getting enough sleep at night. Maintain a healthy weight. Contact a health care provider if: Your fatigue does not get better. You have a fever. You suddenly lose or gain weight. You have headaches. You have trouble falling asleep or sleeping through the night. You feel angry, guilty, anxious, or sad. You have swelling in your legs or another part of your body. Get help right away if: You feel confused, feel like you might faint, or faint. Your vision is blurry or you have a severe headache. You have severe pain in your abdomen, your back, or the area between your waist and hips (pelvis). You have chest pain, shortness of breath, or an irregular or fast heartbeat. You are unable to urinate, or you urinate less than normal. You have abnormal bleeding from the rectum, nose, lungs, nipples, or, if you are female, the vagina. You vomit blood. You have thoughts about hurting yourself or others. These symptoms may be an emergency. Get help right away. Call 911. Do not wait to see if the symptoms will go away. Do not drive yourself to the hospital. Get help right away if you feel like you may hurt yourself or others, or have thoughts about taking your own life. Go to your nearest emergency room or: Call 911. Call the National Suicide Prevention Lifeline at or 811. This is open 24 hours a day. Text the Crisis Text Line at 112829. Summary If you have fatigue, you feel tired all the time and have a lack of energy or a lack of motivation. Fatigue may make it difficult to start or complete tasks because of exhaustion. Long-term (chronic) or extreme fatigue may be a symptom of a medical condition. Exercise regularly, as told by your health care provider. Change situations that cause you stress. Try to keep your work and personal schedules in balance. This information is not intended to replace advice given to you by your health care provider. Make sure you discuss any questions you have with your health care provider. Document Revised: 05/16/2022 Document Reviewed: 05/16/2022 [employer] Patient Education 2022 [employer]. 08/02/2023 12:00:06 Exercising to Lose Weight Exercising to Lose Weight Getting regular exercise is important for everyone. It is especially important if you are overweight. Being overweight increases your risk of heart disease, stroke, diabetes, high blood pressure, and several types of cancer. Exercising, and reducing the calories you consume, can help you lose weight and improve fitness and health. Exercise can be moderate or vigorous intensity. To lose weight, most people need to do a certain amount of moderate or vigorous-intensity exercise each week. How can exercise affect me? You lose weight when you exercise enough to burn more calories than you eat. Exercise also reduces body fat and builds muscle. The more muscle you have, the more calories you burn. Exercise also: Improves mood. Reduces stress and tension. Improves your overall fitness, flexibility, and endurance. Increases bone strength. Moderate-intensity exercise Moderate-intensity exercise is any activity that gets you moving enough to burn at least three times more energy (calories) than if you were sitting. Examples of moderate exercise include: Walking a mile in 15 minutes. Doing light yard work. Biking at an easy pace. Most people should get at least 150 minutes of moderate-intensity exercise a week to maintain their body weight. Vigorous-intensity exercise Vigorous-intensity exercise is any activity that gets you moving enough to burn at least six times more calories than if you were sitting. When you exercise at this intensity, you should be working hard enough that you are not able to carry on a conversation. Examples of vigorous exercise include: Running. Playing a team sport, such as football, basketball, and soccer. Jumping rope. Most people should get at least 75 minutes a week of vigorous exercise to maintain their body weight. What actions can I take to lose weight? The amount of exercise you need to lose weight depends on: Your age. The type of exercise. Any health conditions you have. Your overall physical ability. Talk to your health care provider about how much exercise you need and what types of activities are safe for you. Nutrition Make changes to your diet as told by your health care provider or diet and child nutrition director (dietitian). This may include: ?Eating fewer calories. ?Eating more protein. ?Eating less unhealthy fats. ?Eating a diet that includes fresh fruits and vegetables, whole grains, low-fat dairy products, and lean protein. ?Avoiding foods with added fat, salt, and sugar. Drink plenty of water while you exercise to prevent dehydration or heat stroke. Activity Choose an activity that you enjoy and set realistic goals. Your health care provider can help you make an exercise plan that works for you. Exercise at a moderate or vigorous intensity most days of the week. ?The intensity of exercise may vary from person to person. You can tell how intense a workout is for you by paying attention to your breathing and heartbeat. Most people will notice their breathing and heartbeat get faster with more intense exercise. Do resistance training twice each week, such as: ?Push-ups. ?Sit-ups. ?Lifting weights. ?Using resistance bands. Getting short amounts of exercise can be just as helpful as long, structured periods of exercise. If you have trouble finding time to exercise, try doing these things as part of your daily routine: ?Get up, stretch, and walk around every 30 minutes throughout the day. ?Go for a walk during your lunch break. ?Park your car farther away from your destination. ?If you take public transportation, get off one stop early and walk the rest of the way. ?Make phone calls while standing up and walking around. ?Take the stairs instead of elevators or escalators. Wear comfortable clothes and shoes with good support. Do not exercise so much that you hurt yourself, feel dizzy, or get very short of breath. Where to find more information [place] Department of Health and Human Services: www.hhs.gov Centers for Disease Control and Prevention: www.cdc.gov Contact a health care provider: Before starting a new exercise program. If you have questions or concerns about your weight. If you have a medical problem that keeps you from exercising. Get help right away if: You have any of the following while exercising: ?Injury. ?Dizziness. ?Difficulty breathing or shortness of breath that does not go away when you stop exercising. ?Chest pain. ?Rapid heartbeat. These symptoms may represent a serious problem that is an emergency. Do not wait to see if the symptoms will go away. Get medical help right away. Call your local emergency services (911 in the [place] Do not drive yourself to the hospital. Summary Getting regular exercise is especially important if you are overweight. Being overweight increases your risk of heart disease, stroke, diabetes, high blood pressure, and several types of cancer. Losing weight happens when you burn more calories than you eat. Reducing the amount of calories you eat, and getting regular moderate or vigorous exercise each week, helps you lose weight. This information is not intended to replace advice given to you by your health care provider. Make sure you discuss any questions you have with your health care provider. Document Revised: 09/19/2021 Document Reviewed: 09/19/2021 [employer] Education 2022 [employer]. 08/02/2023 12:00:05 BMI for Adults BMI for Adults What is BMI? Body mass index (BMI) is a number that is calculated from a person's weight and height. BMI can help estimate how much of a person's weight is composed of fat. BMI does not measure body fat directly. Rather, it is an alternative to procedures that directly measure body fat, which can be difficult and expensive. BMI can help identify people who may be at higher risk for certain medical problems. What are BMI measurements used for? BMI is used as a screening tool to identify possible weight problems. It helps determine whether a person is obese, overweight, a healthy weight, or underweight. BMI is useful for: Identifying a weight problem that may be related to a medical condition or may increase the risk for medical problems. Promoting changes, such as changes in diet and exercise, to help reach a healthy weight. BMI screening can be repeated to see if these changes are working. How is BMI calculated? BMI involves measuring your weight in relation to your height. Both height and weight are measured, and the BMI is calculated from those numbers. This can be done either in [place] or metric measurements. Note that charts and online BMI calculators are available to help you find your BMI quickly and easily without having to do these calculations yourself. To calculate your BMI in [place] measurements: 1.Measure your weight in pounds (lb). 2.Multiply the number of pounds by 703. For example, for a person who weighs 180 lb, multiply that number by 703, which equals 126,540. 3.Measure your height in inches. Then multiply that number by itself to get a measurement called inches squared. For example, for a person who is 70 inches tall, the inches squared measurement is 70 inches x 70 inches, which equals 4,900 inches squared. 4.Divide the total from step 2 (number of lb x 703) by the total from step 3 (inches squared): 126,540 4,900 = 25.8. This is your BMI. To calculate your BMI in metric measurements: 1.Measure your weight in kilograms (kg). 2.Measure your height in meters (m). Then multiply that number by itself to get a measurement called meters squared. For example, for a person who is 1.75 m tall, the meters squared measurement is 1.75 m x 1.75 m, which is equal to 3.1 meters squared. 3.Divide the number of kilograms (your weight) by the meters squared number. In this example: 70 3.1 = 22.6. This is your BMI. What do the results mean? BMI charts are used to identify whether you are underweight, normal weight, overweight, or obese. The following guidelines will be used: Underweight: BMI less than 18.5. Normal weight: BMI between 18.5 and 24.9. Overweight: BMI between 25 and 29.9. Obese: BMI of 30 or above. Keep these notes in mind: Weight includes both fat and muscle, so someone with a muscular build, such as an athlete, may have a BMI that is higher than 24.9. In cases like these, BMI is not an accurate measure of body fat. To determine if excess body fat is the cause of a BMI of 25 or higher, further assessments may need to be done by a health care provider. BMI is usually interpreted in the same way for men and women. Where to find more information For more information about BMI, including tools to quickly calculate your BMI, go to these websites: Centers for Disease Control and Prevention: www.cdc.gov [place] Heart Association: www.heart.org National Heart, Lung, and Blood [place]: www.nhlbi.nih.gov Summary Body mass index (BMI) is a number that is calculated from a person's weight and height. BMI may help estimate how much of a person's weight is composed of fat. BMI can help identify those who may be at higher risk for certain medical problems. BMI can be measured using [place] measurements or metric measurements. BMI charts are used to identify whether you are underweight, normal weight, overweight, or obese. This information is not intended to replace advice given to you by your health care provider. Make sure you discuss any questions you have with your health care provider. Document Revised: 04/15/2020 Document Reviewed: 02/21/2020 [employer] Patient Education 2022 [employer] 08/02/2023 12:00:01 Chronic Migraine Headache Chronic Migraine Headache A migraine is a type of headache that is usually stronger and more sudden than other headaches. Migraines are characterized by an intense pulsing, throbbing pain that is usually only present on one side of the head. Migraine pain usually gets worse with activity. Migraines can cause nausea, vomiting, sensitivity to light and sound, and vision changes. Migraines that keep coming back are called recurrent migraines. A migraine is called a chronic migraine if it happens at least 15 days in a month for more than 3 months. Talk with your health care provider about what things may bring on (trigger) your migraines. What are the causes? The exact cause of this condition is not known. However, a migraine may be caused when nerves in the brain become irritated and release chemicals that cause inflammation of blood vessels. The inflammation of the blood vessels causes pain. Migraines may be triggered or caused by: Smoking. Certain foods and drinks, such as: ?Aged cheese. ?Chocolate. ?Alcohol. ?Caffeine. ?Foods or drinks that contain nitrates, glutamate, aspartame, MSG, or tyramine. Medicines, such as control pills or some blood pressure medicines. Other things that may trigger a migraine include: Menstruation. Emotional stress. Lack of sleep or too much sleep. Tiredness (fatigue). Bright lights or loud noises. Odors. Weather changes and high altitude. What increases the risk? The following factors may make you more likely to experience chronic migraine: Having migraines or a family history of migraines. Having a mental health condition, such as depression or anxiety. Having to take a lot of pain medicine. Having sleep problems. Having heart disease, diabetes, or obesity. What are the signs or symptoms? Symptoms of a migraine vary for each person and may include: Pulsating or throbbing pain. Pain that is usually only present on one side of the head. In some cases, the pain may be on both sides of the head or around the head or neck. Severe pain that prevents you from doing daily activities. Pain that gets worse with physical activity. Nausea, vomiting, or both. Pain with exposure to bright lights, loud noises, or activity. General sensitivity to bright lights, loud noises, or smells. Dizziness. A sign that a migraine is becoming chronic is an increasing number of migraine episodes. It is considered chronic if the migraine happens at least 15 days in a month for more than 3 months. How is this diagnosed? This condition is often diagnosed based on: Your symptoms and medical history. A physical exam. You may also have tests, including: A CT scan or an MRI of your brain. These imaging tests cannot diagnose migraines, but they can help to rule out other causes of headaches. Taking fluid from the spine (lumbar puncture) and analyzing it (cerebrospinal fluid analysis, or CSF analysis). Blood tests. How is this treated? This condition is treated with: Medicines. These help to: ?Lessen pain and nausea. ?Prevent migraines. Lifestyle changes, such as changes to your diet or sleeping patterns. Behavior therapy. This may include: ?Relaxation training. ?Biofeedback. This is a treatment that teaches you to relax and use your brain to lower your heart rate and control your breathing. ?Cognitive behavioral therapy (CBT). This is a form of talk therapy. This therapy helps you set goals and follow up on the changes that you make. Acupuncture. Using a device that provides electrical stimulation to your nerves, which can relieve pain (neuromodulation therapy). Surgery, if the other treatments are not working. Follow these instructions at home: Medicines Take [id number] and prescription medicines only as told by your health care provider. Ask your health care provider if the medicine prescribed to you requires you to avoid driving or using machinery. Lifestyle Do not use any products that contain nicotine or tobacco, such as cigarettes, e-cigarettes, and chewing tobacco. If you need help quitting, ask your health care provider. Do not drink alcohol. Get 7 9 hours of sleep each night, or the amount of sleep recommended by your health care provider. Find ways to manage stress, such as meditation, deep breathing, or yoga. Maintain a healthy weight. If you need help losing weight, ask your health care provider. Exercise regularly. Aim for 150 minutes of moderate-intensity exercise, such as walking, biking, or yoga, or 75 minutes of vigorous exercise each week. Vigorous exercise includes running, circuit training, and swimming. General instructions Keep a journal to find out what triggers your migraines so you can avoid these triggers. For example, write down: ?What you eat and drink. ?How much sleep you get. ?Any change to your diet or medicines. Lie down in a dark, quiet room when you have a migraine. Try placing a cool towel over your head when you have a migraine. Keep lights dim, if bright lights bother you or make your migraines worse. Keep all follow-up visits as told by your health care provider. This is important. Where to find more information Coalition for Headache and Migraine Patients (CHAMP): headachemigraine.org [place] Migraine Foundation: americanmigrainefoundation.org National Headache Foundation: headaches.org Contact a health care provider if: Your pain does not improve, even with medicine. Your migraines continue to return, even with medicine. Get help right away if: Your migraine becomes severe and medicine does not help. You have a stiff neck and fever. You have a loss of vision. You have muscle weakness or loss of muscle control. You start losing your balance, or you have trouble walking. You feel like you may faint, or you faint. You start having sudden and unexpected, severe headaches. You have a seizure. Summary Migraine headaches are usually stronger and more sudden than other headaches. Migraines are characterized by an intense pulsing, throbbing pain that is usually only present on one side of the head. Migraines that keep coming back are called recurrent migraines. A migraine is called a chronic migraine if it happens 15 days in a month for more than 3 months. Certain things may trigger migraines, such as lack of sleep or too much sleep, smoking, certain foods, alcohol, stress, and certain medicines. Your treatment plan may include medicines, lifestyle changes, and behavior therapy. This information is not intended to replace advice given to you by your health care provider. Make sure you discuss any questions you have with your health care provider. Document Revised: 09/09/2020 Document Reviewed: 09/09/2020 [employer] Patient Education 2022 [employer]. 08/02/2023 11:59:59 Insomnia Insomnia Insomnia is a sleep disorder that makes it difficult to fall asleep or stay asleep. Insomnia can cause fatigue, low energy, difficulty concentrating, mood swings, and poor performance at work or school. There are three different ways to classify insomnia: Difficulty falling asleep. Difficulty staying asleep. Waking up too early in the morning. Any type of insomnia can be long-term (chronic) or short-term (acute). Both are common. Short-term insomnia usually lasts for 3 months or less. Chronic insomnia occurs at least three times a week for longer than 3 months. What are the causes? Insomnia may be caused by another condition, situation, or substance, such as: Having certain mental health conditions, such as anxiety and depression. Using caffeine, alcohol, tobacco, or drugs. Having gastrointestinal conditions, such as gastroesophageal reflux disease (GERD). Having certain medical conditions. These include: ?Asthma. ?Alzheimer's disease. ?Stroke. ?Chronic pain. ?An overactive thyroid gland (hyperthyroidism). Other sleep disorders, such as restless legs syndrome and sleep apnea. Menopause. Sometimes, the cause of insomnia may not be known. What increases the risk? Risk factors for insomnia include: Gender. Females are affected more often than males. Age. Insomnia is more common as people get older. Stress and certain medical and mental health conditions. Lack of exercise. Having an irregular work schedule. This may include working night shifts and traveling between different time zones. What are the signs or symptoms? If you have insomnia, the main symptom is having trouble falling asleep or having trouble staying asleep. This may lead to other symptoms, such as: Feeling tired or having low energy. Feeling nervous about going to sleep. Not feeling rested in the morning. Having trouble concentrating. Feeling irritable, anxious, or depressed. How is this diagnosed? This condition may be diagnosed based on: Your symptoms and medical history. Your health care provider may ask about: ?Your sleep habits. ?Any medical conditions you have. ?Your mental health. A physical exam. How is this treated? Treatment for insomnia depends on the cause. Treatment may focus on treating an underlying condition that is causing the insomnia. Treatment may also include: Medicines to help you sleep. Counseling or therapy. Lifestyle adjustments to help you sleep better. Follow these instructions at home: Eating and drinking Limit or avoid alcohol, caffeinated beverages, and products that contain nicotine and tobacco, especially close to bedtime. These can disrupt your sleep. Do not eat a large meal or eat spicy foods right before bedtime. This can lead to digestive discomfort that can make it hard for you to sleep. Sleep habits Keep a sleep diary to help you and your health care provider figure out what could be causing your insomnia. Write down: ?When you sleep. ?When you wake up during the night. ?How well you sleep and how rested you feel the next day. ?Any side effects of medicines you are taking. ?What you eat and drink. Make your bedroom a dark, comfortable place where it is easy to fall asleep. ?Put up shades or blackout curtains to block light from outside. ?Use a white noise machine to block noise. ?Keep the temperature cool. Limit screen use before bedtime. This includes: ?Not watching TV. ?Not using your smartphone, tablet, or computer. Stick to a routine that includes going to bed and waking up at the same times every day and night. This can help you fall asleep faster. Consider making a quiet activity, such as reading, part of your nighttime routine. Try to avoid taking naps during the day so that you sleep better at night. Get out of bed if you are still awake after 15 minutes of trying to sleep. Keep the lights down, but try reading or doing a quiet activity. When you feel sleepy, go back to bed. General instructions Take irdz-[id number] and prescription medicines only as told by your health care provider. Exercise regularly as told by your health care provider. However, avoid exercising in the hours right before bedtime. Use relaxation techniques to manage stress. Ask your health care provider to suggest some techniques that may work well for you. These may include: ?Breathing exercises. ?Routines to release muscle tension. ?Visualizing peaceful scenes. Make sure that you drive carefully. Do not drive if you feel very sleepy. Keep all follow-up visits. This is important. Contact a health care provider if: You are tired throughout the day. You have trouble in your daily routine due to sleepiness. You continue to have sleep problems, or your sleep problems get worse. Get help right away if: You have thoughts about hurting yourself or someone else. Get help right away if you feel like you may hurt yourself or others, or have thoughts about taking your own life. Go to your nearest emergency room or: Call 911. Call the National Suicide Prevention Lifeline at or 348. This is open 24 hours a day. Text the Crisis Text Line at 376784. Summary Insomnia is a sleep disorder that makes it difficult to fall asleep or stay asleep. Insomnia can be long-term (chronic) or short-term (acute). Treatment for insomnia depends on the cause. Treatment may focus on treating an underlying condition that is causing the insomnia. Keep a sleep diary to help you and your health care provider figure out what could be causing your insomnia. This information is not intended to replace advice given to you by your health care provider. Make sure you discuss any questions you have with your health care provider. Document Revised: 07/04/2022 Document Reviewed: 07/04/2022 [employer] Patient Education 2022 [employer]. 08/02/2023 11:59:57 Hypertension, Adult Hypertension, Adult High blood pressure (hypertension) is when the force of blood pumping through the arteries is too strong. The arteries are the blood vessels that carry blood from the heart throughout the body. Hypertension forces the heart to work harder to pump blood and may cause arteries to become narrow or stiff. Untreated or uncontrolled hypertension can lead to a heart attack, heart failure, a stroke, kidney disease, and other problems. A blood pressure reading consists of a higher number over a lower number. Ideally, your blood pressure should be below 120/80. The first ( top ) number is called the systolic pressure. It is a measure of the pressure in your arteries as your heart beats. The second ( bottom ) number is called the diastolic pressure. It is a measure of the pressure in your arteries as the heart relaxes. What are the causes? The exact cause of this condition is not known. There are some conditions that result in high blood pressure. What increases the risk? Certain factors may make you more likely to develop high blood pressure. Some of these risk factors are under your control, including: Smoking. Not getting enough exercise or physical activity. Being overweight. Having too much fat, sugar, calories, or salt (sodium) in your diet. Drinking too much alcohol. Other risk factors include: Having a personal history of heart disease, diabetes, high cholesterol, or kidney disease. Stress. Having a family history of high blood pressure and high cholesterol. Having obstructive sleep apnea. Age. The risk increases with age. What are the signs or symptoms? High blood pressure may not cause symptoms. Very high blood pressure (hypertensive crisis) may cause: Headache. Fast or irregular heartbeats (palpitations). Shortness of breath. Nosebleed. Nausea and vomiting. Vision changes. Severe chest pain, dizziness, and seizures. How is this diagnosed? This condition is diagnosed by measuring your blood pressure while you are seated, with your arm resting on a flat surface, your legs uncrossed, and your feet flat on the floor. The cuff of the blood pressure monitor will be placed directly against the skin of your upper arm at the level of your heart. Blood pressure should be measured at least twice using the same arm. Certain conditions can cause a difference in blood pressure between your right and left arms. If you have a high blood pressure reading during one visit or you have normal blood pressure with other risk factors, you may be asked to: Return on a different day to have your blood pressure checked again. Monitor your blood pressure at home for 1 week or longer. If you are diagnosed with hypertension, you may have other blood or imaging tests to help your health care provider understand your overall risk for other conditions. How is this treated? This condition is treated by making healthy lifestyle changes, such as eating healthy foods, exercising more, and reducing your alcohol intake. You may be referred for counseling on a healthy diet and physical activity. Your health care provider may prescribe medicine if lifestyle changes are not enough to get your blood pressure under control and if: Your systolic blood pressure is above 130. Your diastolic blood pressure is above 80. Your personal target blood pressure may vary depending on your medical conditions, your age, and other factors. Follow these instructions at home: Eating and drinking Eat a diet that is high in fiber and potassium, and low in sodium, added sugar, and fat. An example of this eating plan is called the DASH diet. DASH stands for Dietary Approaches to Stop Hypertension. To eat this way: ?Eat plenty of fresh fruits and vegetables. Try to fill one half of your plate at each meal with fruits and vegetables. ?Eat whole grains, such as whole-wheat pasta, brown rice, or whole-grain bread. Fill about one fourth of your plate with whole grains. ?Eat or drink low-fat dairy products, such as skim milk or low-fat yogurt. ?Avoid fatty cuts of meat, processed or cured meats, and poultry with skin. Fill about one fourth of your plate with lean proteins, such as fish, chicken without skin, beans, eggs, or tofu. ?Avoid pre-made and processed foods. These tend to be higher in sodium, added sugar, and fat. Reduce your daily sodium intake. Many people with hypertension should eat less than 1,500 mg of sodium a day. Do not drink alcohol if: ?Your health care provider tells you not to drink. ?You are , may be , or are planning to become . If you drink alcohol: ?Limit how much you have to: ?0 1 drink a day for women. ?0 2 drinks a day for men. ?Know how much alcohol is in your drink. In the [place] one drink equals one 12 oz bottle of beer (355 mL), one 5 oz glass of wine (148 mL), or one 1 oz glass of hard liquor (44 mL). Lifestyle Work with your health care provider to maintain a healthy body weight or to lose weight. Ask what an ideal weight is for you. Get at least 30 minutes of exercise that causes your heart to beat faster (aerobic exercise) most days of the week. Activities may include walking, swimming, or biking. Include exercise to strengthen your muscles (resistance exercise), such as Pilates or lifting weights, as part of your weekly exercise routine. Try to do these types of exercises for 30 minutes at least 3 days a week. Do not use any products that contain nicotine or tobacco. These products include cigarettes, chewing tobacco, and vaping devices, such as e-cigarettes. If you need help quitting, ask your health care provider. Monitor your blood pressure at home as told by your health care provider. Keep all follow-up visits. This is important. Medicines Take rwtf-[id number]-[id number] and prescription medicines only as told by your health care provider. Follow directions carefully. Blood pressure medicines must be taken as prescribed. Do not skip doses of blood pressure medicine. Doing this puts you at risk for problems and can make the medicine less effective. Ask your health care provider about side effects or reactions to medicines that you should watch for. Contact a health care provider if you: Think you are having a reaction to a medicine you are taking. Have headaches that keep coming back (recurring). Feel dizzy. Have swelling in your ankles. Have trouble with your vision. Get help right away if you: Develop a severe headache or confusion. Have unusual weakness or numbness. Feel faint. Have severe pain in your chest or abdomen. Vomit repeatedly. Have trouble breathing. These symptoms may be an emergency. Get help right away. Call 911. Do not wait to see if the symptoms will go away. Do not drive yourself to the hospital. Summary Hypertension is when the force of blood pumping through your arteries is too strong. If this condition is not controlled, it may put you at risk for serious complications. Your personal target blood pressure may vary depending on your medical conditions, your age, and other factors. For most people, a normal blood pressure is less than 120/80. Hypertension is treated with lifestyle changes, medicines, or a combination of both. Lifestyle changes include losing weight, eating a healthy, low-sodium diet, exercising more, and limiting alcohol. This information is not intended to replace advice given to you by your health care provider. Make sure you discuss any questions you have with your health care provider. Document Revised: 05/31/2022 Document Reviewed: 05/31/2022 [employer] Patient Education 2022 [employer]. 08/02/2023 11:59:56 Heart Disease Prevention Heart Disease Prevention Heart disease is the leading cause of in the world. Coronary artery disease is the most common cause of heart disease. This condition results when cholesterol and other substances (plaque) build up inside the hooper of the blood vessels that supply your heart muscle (arteries). This buildup in arteries is called atherosclerosis. You can take actions to lower your risk of heart disease. How can heart disease affect me? Heart disease can cause many unpleasant symptoms and complications, such as: Chest pain (angina). Reduced or blocked blood flow to your heart. This can cause: ?Irregular heartbeats (arrhythmias). ?Heart attack. ?Heart failure. What can increase my risk? The following factors may make you more likely to develop this condition: High blood pressure (hypertension). High cholesterol. A diet high in saturated fats or trans fats. Obesity. Diabetes. Having a family history of heart disease. Certain lifestyle factors, including: ?Smoking. ?Lack of physical activity. ?Drinking too much alcohol. What actions can I take to prevent heart disease? Nutrition Follow a heart-healthy eating plan as told by your health care provider. Examples include the DASH eating plan. DASH stands for Dietary Approaches to Stop Hypertension. Generally, it is recommended that you: ?Eat less salt (sodium). Ask your health care provider how much sodium is safe for you. Most people should have less than 2,300 mg each day. ?Limit unhealthy fats, such as saturated and trans fats, in your diet. You can do this by eating low-fat dairy products, eating less red meat, and avoiding processed foods. ?Eat healthy fats (omega-3 fatty acids). These are found in fish, such as mackerel or salmon. ?Eat more fruits and vegetables. You should try to fill one-half of your plate with fruits and vegetables at each meal. ?Eat more whole grains. ?Avoid foods and drinks that have added sugars. Try to limit how much added sugar you have to: ?Less than 25 grams a day for women. ?Less than 36 grams a day for men. Lifestyle Get regular exercise. This is one of the most important things you can do for your health. Generally, it is recommended that you: ?Exercise for at least 30 minutes on most days of the week (150 minutes each week). This should be exercise that causes your heart to beat faster (aerobic exercise). ?Add strength exercises on at least 2 days each week. Do not use any products that contain nicotine or tobacco. These products include cigarettes, chewing tobacco, and vaping devices, such as e-cigarettes. These can damage your heart and blood vessels. If you need help quitting, ask your health care provider. Alcohol use Do not drink alcohol if: ?Your health care provider tells you not to drink. ?You are , may be , or are planning to become . If you drink alcohol: ?Limit how much you have to: ?0 1 drink a day for women. ?0 2 drinks a day for men. ?Know how much alcohol is in your drink. In the [place] one drink equals one 12 oz bottle of beer (355 mL), one 5 oz glass of wine (148 mL), or one 1 oz glass of hard liquor (44 mL). Medicines Take gvtt-yxj-evvhyld and prescription medicines only as told by your health care provider. Work with your health care provider to find out whether it is safe and beneficial for you to take aspirin daily. Make sure that you understand how much to take and what form to take. Depending on your risk factors, your health care provider may prescribe medicines to lower your risk of heart disease or to control related conditions. You may take medicine to: ?Lower cholesterol. ?Control blood pressure. ?Control diabetes. General information Keep your blood pressure under control, as recommended by your health care provider. For most healthy people, the upper number of their blood pressure (systolic) should be no higher than 120, and the lower number (diastolic) no higher than 80. Treatment may be needed if your blood pressure is higher than 130/80. Have your blood pressure checked at least every 2 years. Your health care provider may check your blood pressure more often if you have high blood pressure. After age 20, have your cholesterol checked every 4 6 years. If you have risk factors for heart disease, you may need to have it checked more often. Treatment may be needed if your cholesterol is high. Have your body mass index (BMI) checked every year. Your health care provider can calculate your BMI from your height and weight. Check your waist circumference. It should be: ?No more than 35 inches (89 cm) for women who are not . ?No more than 40 inches (102 cm) for men. Work with your health care provider to lose weight, if needed, or to maintain a healthy weight. Where to find more information: Centers for Disease Control and Prevention: www.cdc.gov/heartdisease [place] Heart Association: www.heart.org Summary Heart disease is the leading cause of in the world. Heart disease can cause chest pain, abnormal heart rhythms, heart attack, and heart failure. Some of the risk factors for heart disease include high blood pressure, high cholesterol, and smoking. You can take actions to lower your chances of developing heart disease. Work with your health care provider to reduce your risk by following a heart-healthy diet, being physically active, and controlling your weight, blood pressure, and cholesterol level. This information is not intended to replace advice given to you by your health care provider. Make sure you discuss any questions you have with your health care provider. Document Revised: 03/23/2022 Document Reviewed: 03/23/2022 [employer] Patient Education 2022 [employer]. 08/02/2023 11:59:55 DASH Eating Plan DASH Eating Plan DASH stands for Dietary Approaches to Stop Hypertension. The DASH eating plan is a healthy eating plan that has been shown to: Reduce high blood pressure (hypertension). Reduce your risk for type 2 diabetes, heart disease, and stroke. Help with weight loss. What are tips for following this plan? Reading food labels Check food labels for the amount of salt (sodium) per serving. Choose foods with less than 5 percent of the Daily Value of sodium. Generally, foods with less than 300 milligrams (mg) of sodium per serving fit into this eating plan. To find whole grains, look for the word whole as the first word in the ingredient list. Shopping Buy products labeled as low-sodium or no salt added. Buy fresh foods. Avoid canned foods and pre-made or frozen meals. Cooking Avoid adding salt when cooking. Use salt-free seasonings or herbs instead of table salt or sea salt. Check with your health care provider or pharmacist before using salt substitutes. Do not banerjee foods. Cook foods using healthy methods such as baking, boiling, grilling, roasting, and broiling instead. Cook with heart-healthy oils, such as olive, canola, avocado, soybean, or sunflower oil. Meal planning Eat a balanced diet that includes: ?4 or more servings of fruits and 4 or more servings of vegetables each day. Try to fill one-half of your plate with fruits and vegetables. ?6 8 servings of whole grains each day. ?Less than 6 oz (170 g) of lean meat, poultry, or fish each day. A 3-oz (85-g) serving of meat is about the same size as a deck of cards. One egg equals 1 oz (28 g). ?2 3 servings of low-fat dairy each day. One serving is 1 cup (237 mL). ?1 serving of nuts, seeds, or beans 5 times each week. ?2 3 servings of heart-healthy fats. Healthy fats called omega-3 fatty acids are found in foods such as walnuts, flaxseeds, fortified milks, and eggs. These fats are also found in cold-water fish, such as sardines, salmon, and mackerel. Limit how much you eat of: ?Canned or prepackaged foods. ?Food that is high in trans fat, such as some fried foods. ?Food that is high in saturated fat, such as fatty meat. ?Desserts and other sweets, sugary drinks, and other foods with added sugar. ?Full-fat dairy products. Do not salt foods before eating. Do not eat more than 4 egg yolks a week. Try to eat at least 2 vegetarian meals a week. Eat more home-cooked food and less restaurant, buffet, and fast food. Lifestyle When eating at a restaurant, ask that your food be prepared with less salt or no salt, if possible. If you drink alcohol: ?Limit how much you use to: ?0 1 drink a day for women who are not . ?0 2 drinks a day for men. ?Be aware of how much alcohol is in your drink. In the [place] one drink equals one 12 oz bottle of beer (355 mL), one 5 oz glass of wine (148 mL), or one 1 oz glass of hard liquor (44 mL). General information Avoid eating more than 2,300 mg of salt a day. If you have hypertension, you may need to reduce your sodium intake to 1,500 mg a day. Work with your health care provider to maintain a healthy body weight or to lose weight. Ask what an ideal weight is for you. Get at least 30 minutes of exercise that causes your heart to beat faster (aerobic exercise) most days of the week. Activities may include walking, swimming, or biking. Work with your health care provider or dietitian to adjust your eating plan to your individual calorie needs. What foods should I eat? Fruits All fresh, dried, or frozen fruit. Canned fruit in natural juice (without added sugar). Vegetables Fresh or frozen vegetables (raw, steamed, roasted, or grilled). Low-sodium or reduced-sodium tomato and vegetable juice. Low-sodium or reduced-sodium tomato sauce and tomato paste. Low-sodium or reduced-sodium canned vegetables. Grains Whole-grain or whole-wheat bread. Whole-grain or whole-wheat pasta. Brown rice. Oatmeal. Quinoa. Bulgur. Whole-grain and low-sodium cereals. Sary bread. Low-fat, low-sodium crackers. Whole-wheat flour tortillas. Meats and other proteins Skinless chicken or turkey. Ground chicken or turkey. Pork with fat trimmed off. Fish and seafood. Egg whites. Dried beans, peas, or lentils. Unsalted nuts, nut butters, and seeds. Unsalted canned beans. Lean cuts of beef with fat trimmed off. Low-sodium, lean precooked or cured meat, such as sausages or meat loaves. Dairy Low-fat (1%) or fat-free (skim) milk. Reduced-fat, low-fat, or fat-free cheeses. Nonfat, low-sodium ricotta or cottage cheese. Low-fat or nonfat yogurt. Low-fat, low-sodium cheese. Fats and oils Soft margarine without trans fats. Vegetable oil. Reduced-fat, low-fat, or light mayonnaise and salad dressings (reduced-sodium). Canola, safflower, olive, avocado, soybean, and sunflower oils. Avocado. Seasonings and condiments Herbs. Spices. Seasoning mixes without salt. Other foods Unsalted popcorn and pretzels. Fat-free sweets. The items listed above may not be a complete list of foods and beverages you can eat. Contact a dietitian for more information. What foods should I avoid? Fruits Canned fruit in a light or heavy syrup. Fried fruit. Fruit in cream or butter sauce. Vegetables Creamed or fried vegetables. Vegetables in a cheese sauce. Regular canned vegetables (not low-sodium or reduced-sodium). Regular canned tomato sauce and paste (not low-sodium or reduced-sodium). Regular tomato and vegetable juice (not low-sodium or reduced-sodium). Pickles. Olives. Grains Baked goods made with fat, such as croissants, muffins, or some breads. Dry pasta or rice meal packs. Meats and other proteins Fatty cuts of meat. Ribs. Fried meat. Hopper. Bologna, salami, and other precooked or cured meats, such as sausages or meat loaves. Fat from the back of a pig (fatback). Bratwurst. Salted nuts and seeds. Canned beans with added salt. Canned or smoked fish. Whole eggs or egg yolks. Chicken or turkey with skin. Dairy Whole or 2% milk, cream, and kryf-uwd-rwfd. Whole or full-fat cream cheese. Whole-fat or sweetened yogurt. Full-fat cheese. Nondairy creamers. Whipped toppings. Processed cheese and cheese spreads. Fats and oils Butter. Stick margarine. Lard. Shortening. Ghee. Hopper fat. Tropical oils, such as coconut, palm kernel, or palm oil. Seasonings and condiments Onion salt, garlic salt, seasoned salt, table salt, and sea salt. Worcestershire sauce. Tartar sauce. Barbecue sauce. Teriyaki sauce. Soy sauce, including reduced-sodium. Steak sauce. Canned and packaged gravies. Fish sauce. Oyster sauce. Cocktail sauce. Store-bought horseradish. Ketchup. Mustard. Meat flavorings and tenderizers. Bouillon cubes. Hot sauces. Pre-made or packaged marinades. Pre-made or packaged taco seasonings. Relishes. Regular salad dressings. Other foods Salted popcorn and pretzels. The items listed above may not be a complete list of foods and beverages you should avoid. Contact a dietitian for more information. Where to find more information National Heart, Lung, and Blood [place]: www.nhlbi.nih.gov [place] Heart Association: www.heart.org Academy of Nutrition and Dietetics: www.eatright.org National Kidney Foundation: www.kidney.org Summary The DASH eating plan is a healthy eating plan that has been shown to reduce high blood pressure (hypertension). It may also reduce your risk for type 2 diabetes, heart disease, and stroke. When on the DASH eating plan, aim to eat more fresh fruits and vegetables, whole grains, lean proteins, low-fat dairy, and heart-healthy fats. With the DASH eating plan, you should limit salt (sodium) intake to 2,300 mg a day. If you have hypertension, you may need to reduce your sodium intake to 1,500 mg a day. Work with your health care provider or dietitian to adjust your eating plan to your individual calorie needs. This information is not intended to replace advice given to you by your health care provider. Make sure you discuss any questions you have with your health care provider. Document Revised: 06/26/2020 Document Reviewed: 06/26/2020 [employer] Patient Education 2022 [employer]. 08/02/2023 11:59:53 Health Maintenance, Female Health Maintenance, Female Adopting a healthy lifestyle and getting preventive care are important in promoting health and wellness. Ask your health care provider about: The right schedule for you to have regular tests and exams. Things you can do on your own to prevent diseases and keep yourself healthy. What should I know about diet, weight, and exercise? Eat a healthy diet Eat a diet that includes plenty of vegetables, fruits, low-fat dairy products, and lean protein. Do not eat a lot of foods that are high in solid fats, added sugars, or sodium. Maintain a healthy weight Body mass index (BMI) is used to identify weight problems. It estimates body fat based on height and weight. Your health care provider can help determine your BMI and help you achieve or maintain a healthy weight. Get regular exercise Get regular exercise. This is one of the most important things you can do for your health. Most adults should: Exercise for at least 150 minutes each week. The exercise should increase your heart rate and make you sweat (moderate-intensity exercise). Do strengthening exercises at least twice a week. This is in addition to the moderate-intensity exercise. Spend less time sitting. Even light physical activity can be beneficial. Watch cholesterol and blood lipids Have your blood tested for lipids and cholesterol at 20 years of age, then have this test every 5 years. Have your cholesterol levels checked more often if: Your lipid or cholesterol levels are high. You are older than 40 years of age. You are at high risk for heart disease. What should I know about cancer screening? Depending on your health history and family history, you may need to have cancer screening at various ages. This may include screening for: Breast cancer. Cervical cancer. Colorectal cancer. Skin cancer. Lung cancer. What should I know about heart disease, diabetes, and high blood pressure? Blood pressure and heart disease High blood pressure causes heart disease and increases the risk of stroke. This is more likely to develop in people who have high blood pressure readings or are overweight. Have your blood pressure checked: ?Every 3 5 years if you are 18 39 years of age. ?Every year if you are 40 years old or older. Diabetes Have regular diabetes screenings. This checks your fasting blood sugar level. Have the screening done: Once every three years after age 40 if you are at a normal weight and have a low risk for diabetes. More often and at a younger age if you are overweight or have a high risk for diabetes. What should I know about preventing infection? Hepatitis B If you have a higher risk for hepatitis B, you should be screened for this virus. Talk with your health care provider to find out if you are at risk for hepatitis B infection. Hepatitis C Testing is recommended for: Everyone born from 1945 through 1965. Anyone with known risk factors for hepatitis C. Sexually transmitted infections (STIs) Get screened for STIs, including gonorrhea and chlamydia, if: ?You are sexually active and are younger than 24 years of age. ?You are older than 24 years of age and your health care provider tells you that you are at risk for this type of infection. ?Your sexual activity has changed since you were last screened, and you are at increased risk for chlamydia or gonorrhea. Ask your health care provider if you are at risk. Ask your health care provider about whether you are at high risk for HIV. Your health care provider may recommend a prescription medicine to help prevent HIV infection. If you choose to take medicine to prevent HIV, you should first get tested for HIV. You should then be tested every 3 months for as long as you are taking the medicine. If you are about to stop having your period (premenopausal) and you may become , seek counseling before you get . Take 400 to 800 micrograms (mcg) of folic acid every day if you become . Ask for control (contraception) if you want to prevent . Osteoporosis and menopause Osteoporosis is a disease in which the bones lose minerals and strength with aging. This can result in bone fractures. If you are 65 years old or older, or if you are at risk for osteoporosis and fractures, ask your health care provider if you should: Be screened for bone loss. Take a calcium or vitamin D supplement to lower your risk of fractures. Be given hormone replacement therapy (HRT) to treat symptoms of menopause. Follow these instructions at home: Alcohol use Do not drink alcohol if: ?Your health care provider tells you not to drink. ?You are , may be , or are planning to become . If you drink alcohol: ?Limit how much you have to: ?0 1 drink a day. ?Know how much alcohol is in your drink. In the [place] one drink equals one 12 oz bottle of beer (355 mL), one 5 oz glass of wine (148 mL), or one 1 oz glass of hard liquor (44 mL). Lifestyle Do not use any products that contain nicotine or tobacco. These products include cigarettes, chewing tobacco, and vaping devices, such as e-cigarettes. If you need help quitting, ask your health care provider. Do not use street drugs. Do not share needles. Ask your health care provider for help if you need support or information about quitting drugs. General instructions Schedule regular health, dental, and eye exams. Stay current with your vaccines. Tell your health care provider if: ?You often feel depressed. ?You have ever been abused or do not feel safe at home. Summary Adopting a healthy lifestyle and getting preventive care are important in promoting health and wellness. Follow your health care provider's instructions about healthy diet, exercising, and getting tested or screened for diseases. Follow your health care provider's instructions on monitoring your cholesterol and blood pressure. This information is not intended to replace advice given to you by your health care provider. Make sure you discuss any questions you have with your health care provider. Document Revised: 12/13/2021 Document Reviewed: 12/13/2021 [employer] Patient Education 2022 [employer]. Follow Up Care 07/18/2023 11:26:38 With:Sara Flood FAM, MED Address: [address], [address] [place] [address] [place] [phone]- When:Within 1 Month(s) Comments:f/u labs, HTN, With:Sara Flood FAM, MED Address: [address], [address] [place] [address]- Business (1) When:10/11/2023 Comments:for f/u [facility] 05-17-2022 Hospital Discharg e instructions Patient Education 05/17/2022 16:52:01 BMI for Adults BMI for Adults Body mass index (BMI) is a number that is calculated from a person's weight and height. BMI may help to estimate how much of a person's weight is composed of fat. BMI can help identify those who may be at higher risk for certain medical problems. How is BMI used with adults? BMI is used as a screening tool to identify possible weight problems. It is used to check whether a person is obese, overweight, healthy weight, or underweight. How is BMI calculated? BMI measures your weight and compares it to your height. This can be done either in [place] (U.[place] or metric measurements. Note that charts are available to help you find your BMI quickly and easily without having to do these calculations yourself. To calculate your BMI in Canadian (U.[place] measurements, your health care provider will: 1.Measure your weight in pounds (lb). 2.Multiply the number of pounds by 703. For example, for a person who weighs 180 lb, multiply that number by 703, which equals 126,540. 3.Measure your height in inches (in). Then multiply that number by itself to get a measurement called inches squared. For example, for a person who is 70 in tall, the inches squared measurement is 70 in x 70 in, which equals 4900 inches squared. 4.Divide the total from Step 2 (number of lb x 703) by the total from Step 3 (inches squared): 126,540 4900 = 25.8. This is your BMI. To calculate your BMI in metric measurements, your health care provider will: 1.Measure your weight in kilograms (kg). 2.Measure your height in meters (m). Then multiply that number by itself to get a measurement called meters squared. For example, for a person who is 1.75 m tall, the meters squared measurement is 1.75 m x 1.75 m, which is equal to 3.1 meters squared. 3.Divide the number of kilograms (your weight) by the meters squared number. In this example: 70 3.1 = 22.6. This is your BMI. How is BMI interpreted? To interpret your results, your health care provider will use BMI charts to identify whether you are underweight, normal weight, overweight, or obese. The following guidelines will be used: Underweight: BMI less than 18.5. Normal weight: BMI between 18.5 and 24.9. Overweight: BMI between 25 and 29.9. Obese: BMI of 30 and above. Please note: Weight includes both fat and muscle, so someone with a muscular build, such as an athlete, may have a BMI that is higher than 24.9. In cases like these, BMI is not an accurate measure of body fat. To determine if excess body fat is the cause of a BMI of 25 or higher, further assessments may need to be done by a health care provider. BMI is usually interpreted in the same way for men and women. Why is BMI a useful tool? BMI is useful in two ways: Identifying a weight problem that may be related to a medical condition, or that may increase the risk for medical problems. Promoting lifestyle and diet changes in order to reach a healthy weight. Summary Body mass index (BMI) is a number that is calculated from a person's weight and height. BMI may help to estimate how much of a person's weight is composed of fat. BMI can help identify those who may be at higher risk for certain medical problems. BMI can be measured using Canadian measurements or metric measurements. To interpret your results, your health care provider will use BMI charts to identify whether you are underweight, normal weight, overweight, or obese. This information is not intended to replace advice given to you by your health care provider. Make sure you discuss any questions you have with your health care provider. Document Released: 04/04/2005 Document Revised: 07/06/2018 Document Reviewed: 06/06/2018 [employer] Patient Education 2020 [employer]. Follow Up Care 05/17/2022 11:41:02 With:Wenceslao MARROQUIN, ANGY Tolentino, CELENA Address: [address] [place] [phone] When: only if needed [facility] 12-23-2021 Hospital Discharg e instructions Patient Education 12/23/2021 17:07:26 BMI for Adults BMI for Adults Body mass index (BMI) is a number that is calculated from a person's weight and height. BMI may help to estimate how much of a person's weight is composed of fat. BMI can help identify those who may be at higher risk for certain medical problems. How is BMI used with adults? BMI is used as a screening tool to identify possible weight problems. It is used to check whether a person is obese, overweight, healthy weight, or underweight. How is BMI calculated? BMI measures your weight and compares it to your height. This can be done either in Canadian ([place].S[place] or metric measurements. Note that charts are available to help you find your BMI quickly and easily without having to do these calculations yourself. To calculate your BMI in Canadian ([place] measurements, your health care provider will: 1.Measure your weight in pounds (lb). 2.Multiply the number of pounds by 703. For example, for a person who weighs 180 lb, multiply that number by 703, which equals 126,540. 3.Measure your height in inches (in). Then multiply that number by itself to get a measurement called inches squared. For example, for a person who is 70 in tall, the inches squared measurement is 70 in x 70 in, which equals 4900 inches squared. 4.Divide the total from Step 2 (number of lb x 703) by the total from Step 3 (inches squared): 126,540 4900 = 25.8. This is your BMI. To calculate your BMI in metric measurements, your health care provider will: 1.Measure your weight in kilograms (kg). 2.Measure your height in meters (m). Then multiply that number by itself to get a measurement called meters squared. For example, for a person who is 1.75 m tall, the meters squared measurement is 1.75 m x 1.75 m, which is equal to 3.1 meters squared. 3.Divide the number of kilograms (your weight) by the meters squared number. In this example: 70 3.1 = 22.6. This is your BMI. How is BMI interpreted? To interpret your results, your health care provider will use BMI charts to identify whether you are underweight, normal weight, overweight, or obese. The following guidelines will be used: Underweight: BMI less than 18.5. Normal weight: BMI between 18.5 and 24.9. Overweight: BMI between 25 and 29.9. Obese: BMI of 30 and above. Please note: Weight includes both fat and muscle, so someone with a muscular build, such as an athlete, may have a BMI that is higher than 24.9. In cases like these, BMI is not an accurate measure of body fat. To determine if excess body fat is the cause of a BMI of 25 or higher, further assessments may need to be done by a health care provider. BMI is usually interpreted in the same way for men and women. Why is BMI a useful tool? BMI is useful in two ways: Identifying a weight problem that may be related to a medical condition, or that may increase the risk for medical problems. Promoting lifestyle and diet changes in order to reach a healthy weight. Summary Body mass index (BMI) is a number that is calculated from a person's weight and height. BMI may help to estimate how much of a person's weight is composed of fat. BMI can help identify those who may be at higher risk for certain medical problems. BMI can be measured using Canadian measurements or metric measurements. To interpret your results, your health care provider will use BMI charts to identify whether you are underweight, normal weight, overweight, or obese. This information is not intended to replace advice given to you by your health care provider. Make sure you discuss any questions you have with your health care provider. Document Released: 04/04/2005 Document Revised: 07/06/2018 Document Reviewed: 06/06/2018 [employer] Patient Education 2020 [employer] 12/23/2021 17:07:24 Sinusitis, Adult Sinusitis, Adult Sinusitis is inflammation of your sinuses. Sinuses are hollow spaces in the bones around your face. Your sinuses are located: Around your eyes. In the middle of your forehead. Behind your nose. In your cheekbones. Mucus normally drains out of your sinuses. When your nasal tissues become inflamed or swollen, mucus can become trapped or blocked. This allows bacteria, viruses, and fungi to grow, which leads to infection. Most infections of the sinuses are caused by a virus. Sinusitis can develop quickly. It can last for up to 4 weeks (acute) or for more than 12 weeks (chronic). Sinusitis often develops after a cold. What are the causes? This condition is caused by anything that creates swelling in the sinuses or stops mucus from draining. This includes: Allergies. Asthma. Infection from bacteria or viruses. Deformities or blockages in your nose or sinuses. Abnormal growths in the nose (nasal polyps). Pollutants, such as chemicals or irritants in the air. Infection from fungi (rare). What increases the risk? You are more likely to develop this condition if you: Have a weak body defense system (immune system). Do a lot of swimming or diving. Overuse nasal sprays. Smoke. What are the signs or symptoms? The main symptoms of this condition are pain and a feeling of pressure around the affected sinuses. Other symptoms include: Stuffy nose or congestion. Thick drainage from your nose. Swelling and warmth over the affected sinuses. Headache. Upper toothache. A cough that may get worse at night. Extra mucus that collects in the throat or the back of the nose (postnasal drip). Decreased sense of smell and taste. Fatigue. A fever. Sore throat. Bad breath. How is this diagnosed? This condition is diagnosed based on: Your symptoms. Your medical history. A physical exam. Tests to find out if your condition is acute or chronic. This may include: ?Checking your nose for nasal polyps. ?Viewing your sinuses using a device that has a light (endoscope). ?Testing for allergies or bacteria. ?Imaging tests, such as an MRI or CT scan. In rare cases, a bone biopsy may be done to rule out more serious types of fungal sinus disease. How is this treated? Treatment for sinusitis depends on the cause and whether your condition is chronic or acute. If caused by a virus, your symptoms should go away on their own within 10 days. You may be given medicines to relieve symptoms. They include: ?Medicines that shrink swollen nasal passages (topical intranasal decongestants). ?Medicines that treat allergies (antihistamines). ?A spray that eases inflammation of the nostrils (topical intranasal corticosteroids). ?Rinses that help get rid of thick mucus in your nose (nasal saline washes). If caused by bacteria, your health care provider may recommend waiting to see if your symptoms improve. Most bacterial infections will get better without antibiotic medicine. You may be given antibiotics if you have: ?A severe infection. ?A weak immune system. If caused by narrow nasal passages or nasal polyps, you may need to have surgery. Follow these instructions at home: Medicines Take, use, or apply ohpe-szm-amlwggk and prescription medicines only as told by your health care provider. These may include nasal sprays. If you were prescribed an antibiotic medicine, take it as told by your health care provider. Do not stop taking the antibiotic even if you start to feel better. Hydrate and humidify Drink enough fluid to keep your urine pale yellow. Staying hydrated will help to thin your mucus. Use a cool mist humidifier to keep the humidity level in your home above 50%. Inhale steam for 10 15 minutes, 3 4 times a day, or as told by your health care provider. You can do this in the bathroom while a hot shower is running. Limit your exposure to cool or dry air. Rest Rest as much as possible. Sleep with your head raised (elevated). Make sure you get enough sleep each night. General instructions Apply a warm, moist washcloth to your face 3 4 times a day or as told by your health care provider. This will help with discomfort. Wash your hands often with soap and water to reduce your exposure to germs. If soap and water are not available, use hand wet mix operator. Do not smoke. Avoid being around people who are smoking (secondhand smoke). Keep all follow-up visits as told by your health care provider. This is important. Contact a health care provider if: You have a fever. Your symptoms get worse. Your symptoms do not improve within 10 days. Get help right away if: You have a severe headache. You have persistent vomiting. You have severe pain or swelling around your face or eyes. You have vision problems. You develop confusion. Your neck is stiff. You have trouble breathing. Summary Sinusitis is soreness and inflammation of your sinuses. Sinuses are hollow spaces in the bones around your face. This condition is caused by nasal tissues that become inflamed or swollen. The swelling traps or blocks the flow of mucus. This allows bacteria, viruses, and fungi to grow, which leads to infection. If you were prescribed an antibiotic medicine, take it as told by your health care provider. Do not stop taking the antibiotic even if you start to feel better. Keep all follow-up visits as told by your health care provider. This is important. This information is not intended to replace advice given to you by your health care provider. Make sure you discuss any questions you have with your health care provider. Document Released: 07/24/2006 Document Revised: 12/24/2018 Document Reviewed: 12/24/2018 [employer] Patient Education 2020 [employer]. Follow Up Care 12/23/2021 07:59:55 With:Monet Vázquez CNP Address: When: only if needed [facility] 11-01-2021 Hospital Discharg e instructions Patient Education 11/01/2021 14:52:13 BMI for Adults BMI for Adults Body mass index (BMI) is a number that is calculated from a person's weight and height. BMI may help to estimate how much of a person's weight is composed of fat. BMI can help identify those who may be at higher risk for certain medical problems. How is BMI used with adults? BMI is used as a screening tool to identify possible weight problems. It is used to check whether a person is obese, overweight, healthy weight, or underweight. How is BMI calculated? BMI measures your weight and compares it to your height. This can be done either in [place] ([place] or metric measurements. Note that charts are available to help you find your BMI quickly and easily without having to do these calculations yourself. To calculate your BMI in Canadian ([place] measurements, your health care provider will: 1.Measure your weight in pounds (lb). 2.Multiply the number of pounds by 703. For example, for a person who weighs 180 lb, multiply that number by 703, which equals 126,540. 3.Measure your height in inches (in). Then multiply that number by itself to get a measurement called inches squared. For example, for a person who is 70 in tall, the inches squared measurement is 70 in x 70 in, which equals 4900 inches squared. 4.Divide the total from Step 2 (number of lb x 703) by the total from Step 3 (inches squared): 126,540 4900 = 25.8. This is your BMI. To calculate your BMI in metric measurements, your health care provider will: 1.Measure your weight in kilograms (kg). 2.Measure your height in meters (m). Then multiply that number by itself to get a measurement called meters squared. For example, for a person who is 1.75 m tall, the meters squared measurement is 1.75 m x 1.75 m, which is equal to 3.1 meters squared. 3.Divide the number of kilograms (your weight) by the meters squared number. In this example: 70 3.1 = 22.6. This is your BMI. How is BMI interpreted? To interpret your results, your health care provider will use BMI charts to identify whether you are underweight, normal weight, overweight, or obese. The following guidelines will be used: Underweight: BMI less than 18.5. Normal weight: BMI between 18.5 and 24.9. Overweight: BMI between 25 and 29.9. Obese: BMI of 30 and above. Please note: Weight includes both fat and muscle, so someone with a muscular build, such as an athlete, may have a BMI that is higher than 24.9. In cases like these, BMI is not an accurate measure of body fat. To determine if excess body fat is the cause of a BMI of 25 or higher, further assessments may need to be done by a health care provider. BMI is usually interpreted in the same way for men and women. Why is BMI a useful tool? BMI is useful in two ways: Identifying a weight problem that may be related to a medical condition, or that may increase the risk for medical problems. Promoting lifestyle and diet changes in order to reach a healthy weight. Summary Body mass index (BMI) is a number that is calculated from a person's weight and height. BMI may help to estimate how much of a person's weight is composed of fat. BMI can help identify those who may be at higher risk for certain medical problems. BMI can be measured using Canadian measurements or metric measurements. To interpret your results, your health care provider will use BMI charts to identify whether you are underweight, normal weight, overweight, or obese. This information is not intended to replace advice given to you by your health care provider. Make sure you discuss any questions you have with your health care provider. Document Released: 04/04/2005 Document Revised: 07/06/2018 Document Reviewed: 06/06/2018 [employer] Patient Education 2020 [employer]. Follow Up Care 10/19/2021 14:41:47 With:Krystal Greene Address: [email or web address] When: only if needed [facility] 09-22-2021 Hospital Discharg e instructions Follow Up Care 09/22/2021 12:00:37 With:Wenceslao MARROQUIN, Randa, ANGY, MED Address: [address] [place], [place] [phone] [facility] (1) When:07/17/[address] [facility] 02-22-2021 History of Presen t illness Narrative Telephone Visit Via Phone Call [facility] [phone] Telephone Visit [facility] 02/22/2021 Nikki Perez MD Provider Location: [facility] Patient Location Professor Of Kinesiology: None Patient Location: Patient's Home Patient: Savanah Byers Date of : 1970 (50 y.o. female) PCP: Physician No I discussed risks, benefits and alternatives of a telephone visit telemedicine consultation with the patient (and any accompanying persons) including the risks that the patient's personal health details and medical records will be discussed over real-time, synchronous, interactive audio technology, the visit will not be recorded without the express consent of both the provider and the patient, and that there are inherent diagnostic limitations compared to [id number] evaluations. We elected to proceed with the telephone visit telemedicine consultation. HPI Patient is interviewed over the phone. Audio quality was fair, patient was well engaged and answered questions appropriately . Patient denies any ongoing manic/hypomanic mood symptoms. Denies any ongoing irritability or inflated moods. Denies any ongoing depressive mood symptoms. Not reporting any ongoing pervasive sadness or anhedonia. No decline in her mood since she was last seen. Work is going well, no new stressors reported. Pain control has been adequate. No new stressors at home. Denies feeling helpless hopeless or worthless. Reports fair energy and fair motivation. Patient denies ongoing racing thoughts or flight of ideas or increased busyness or increased goal-directed activities. Impulse control has been fair. Patient denies any ongoing morbid thoughts. Denies any ongoing suicide ideation intent or plan. No thought content or thought process abnormalities are present. Sleep has been adequate no issues falling or staying asleep. Appetite is normal limits. Sex drive is within normal limits. She denies any ongoing drug or alcohol abuse. Medication assessed: Denies any ongoing side effects, fair compliance and good response. Patient was admitted same plan The following portions of the patient's history were reviewed and updated as appropriate: allergies, current medications, past family history, past medical history, past social history, past surgical history and problem list. Review of Systems Constitutional: Negative. HENT: Negative. Eyes: Negative. Respiratory: Negative. Cardiovascular: Negative. Gastrointestinal: Negative. Endocrine: Negative. Genitourinary: Negative. Musculoskeletal: Negative. Skin: Negative. Allergic/Immunologic: Negative. Patient's Medications New Prescriptions No medications on file Previous Medications BACLOFEN (LIORESAL) 20 MG TABLET Half a tablet in the morning, half a tablet in the afternoon, and 1 1/2 tablets at bed time . DIAZEPAM (VALIUM) 2 MG TABLET Take 2 mg by mouth Take half a tablet to one tablet twice daily . LAMOTRIGINE (LAMICTAL) 200 MG TABLET Take 2 (two) tablets (400 mg total) by mouth daily . LOSARTAN (COZAAR) 25 MG TABLET Take 25 mg by mouth daily . LURASIDONE (LATUDA) 40 MG TAB Take 1 (one) tablet (40 mg total) by mouth daily . OXCARBAZEPINE (TRILEPTAL) 300 MG TABLET Take 450 mg by mouth nightly . SUVOREXANT 20 MG TAB Take 20 mg by mouth nightly . UBROGEPANT 50 MG TAB 50 mg Med Name: Ubrelvjordin . Modified Medications No medications on file Discontinued Medications No medications on file Assessment/Plan: Mental status examination: Patient was cooperative over the phone, speech is within normal limits. Patient denies any psychomotor agitation. Patient denies any ongoing racing thoughts or flight of ideas. Patient denies any ongoing thought content thought process abnormalities. Patient denies any ongoing perceptual disturbances. Denies any ongoing suicidal ideation or plan. Denies any ongoing homicidal ideation intent or plan. Patient's impulse control has been fair. Memory is intact. Attention concentration is adequate. Language/knowledge: Average. Insight judgment: Good Diagnoses and all orders for this visit: Bipolar affective disorder, mixed, in full remission (HCC) Insomnia due to mental disorder - suvorexant 20 mg Tab; Take 1 (one) tablet (20 mg total) by mouth nightly . Other orders - lamoTRIgine (LAMICTAL) 200 MG tablet; Take 2 (two) tablets (400 mg total) by mouth daily . - lurasidone (LATUDA) 40 mg Tab; Take 1 (one) tablet (40 mg total) by mouth daily . I have spent 15 minutes with the patient reviewing the HPI and Plan of Care. documented in this encounter [facility] 12-20-2012 Miscellaneous Notes I called the pt today to schedule this appt. I left a msg for the pt to call in regards to setting up an appt per Dr. Blanco. Colin Chopra Message copied by COLIN ELLIS on MonDecember 20, 2012 3:31 PM ------ Message from: PURVI BLANCO MD Created: MonDecember 19, 2012 6:42 PM Regarding: Referral to sleep psychology Could this patient please be called to schedule an appt with Dr. Murrell or Dr. Becerra? Have placed order in her chart. Thank you! purvi documented in this encounter [facility] Evaluation + Plan note Future Appointments Appointment Date:03/23/2022 10:20:00 AM Scheduled Provider:Wenceslao MARROQUIN, Randa Location:[facility] Hospital Appointment Type: Open Future Scheduled [id number], [place] 06/29/[address] [facility] Evaluation + Plan note Future Appointments Appointment Date:12/28/2021 01:45:00 PM Scheduled Provider: Location[place] Appointment Type:PT 45 (FT) Appointment Date:12/30/2021 11:30:00 AM Scheduled Provider: [place] Appointment Type:PT 45 (FT) Appointment Date:12/31/2021 10:00:00 AM Scheduled Provider: [place] Appointment Type:PT 45 (FT) Appointment Date:01/04/2022 11:30:00 AM Scheduled Provider: [place] Appointment Type:PT 45 (FT) Appointment Date:01/06/2022 11:30:00 AM Scheduled Provider: [place] Appointment Type:PT 45 (FT) Appointment Date:01/10/2022 10:30:00 AM Scheduled Provider: [place] Appointment Type:PT 45 (FT) Appointment Date:01/12/2022 10:45:00 AM Scheduled Provider: [place] Appointment Type:PT 45 (FT) Appointment Date:01/14/2022 12:15:00 PM Scheduled Provider: [place] Appointment Type:PT Re-Eval 45 (FT) Appointment Date:01/17/2022 10:30:00 AM Scheduled Provider: [place] Appointment Type:PT 45 (FT) Appointment Date:01/19/2022 10:45:00 AM Scheduled Provider: [place] Appointment Type:PT 45 (FT) Appointment Date:01/20/2022 01:00:00 PM Scheduled Provider: [place] Appointment Type:PT Re-Eval 45 (FT) Appointment Date:03/23/2022 10:20:00 AM Scheduled Provider:Randa Billy MD Location:[facility] Appointment Type:FM Open Future Scheduled [id number]-4, [place] 06/29/[address] [facility] Evaluation + Plan note Future Appointments Appointment Date:09/21/2022 10:20:00 AM Scheduled Provider:Randa Billy MD Location:[facility] Appointment Type: Open Future Scheduled HddzzHZNH-RlW-4, [place] 06/29/21MA Mamm Screen w/CAD if perf and 3D James 03/23/[address] [facility] Evaluation + Plan note Future Appointments Appointment Date:06/27/2022 02:45:00 PM Scheduled Provider: [facility] Type:MA Screen () Appointment Date:09/21/2022 10:20:00 AM Scheduled Provider:Randa Billy MD Location:[facility] Appointment Type: Open Future Scheduled MldiwLMZC-CtC-3, [place] 06/29/21[place] Mamm Screen w/CAD if perf and 3D James 06/27/[address] [facility] Evaluation + Plan note Future Appointments Appointment Date:09/21/2022 10:20:00 AM Scheduled Provider:Randa Billy MD Location:[facility] Appointment Type: Open Future Scheduled [id number]-[id number]-9, [place] 06/29/21 [facility] Evaluation + Plan note Future Appointments Appointment Date:04/19/2023 11:00:00 AM Scheduled Provider:Randa Billy MD Location:[facility] Appointment Type: Open [facility] Evaluation + Plan note Future Appointments Appointment Date:04/19/2023 11:00:00 AM Scheduled Provider:Randa Billy MD Location:[facility] Appointment Type: Open Future Scheduled TestsUS Thyroid 01/17/23 [facility] Evaluation + Plan note Future Appointments Appointment Date:01/31/2024 11:00:00 AM Scheduled Provider:Sara Flood Location:[facility] Appointment Type: Open Future Scheduled [id number] 08/02/23Vitamin D 25 Hydroxy 08/02/23CBC w/ Auto Diff 08/02/23Comprehensive Metabolic Panel 08/02/23Lipid Panel 08/02/23Thyroid Stimulating Hormone 08/02/23Free T4 08/02/23MA Mamm Screen w/CAD if perf and 3D James 08/02/23 [facility] Evaluation + Plan note Future Appointments Appointment Date:09/29/2023 01:00:00 PM Scheduled Provider:Sara Flodo Location:[facility] Appointment Type:FM Open Appointment Date:01/31/2024 11:00:00 AM Scheduled Provider:Sara Flood Location:[facility] Appointment Type: Open Future Scheduled [id number] 08/02/23Vitamin D 25 Hydroxy 08/02/23CBC w/ Auto Diff 08/02/23Comprehensive Metabolic Panel 08/02/23Lipid Panel 08/02/23Thyroid Stimulating Hormone 08/02/23Free T4 08/02/23MA Mamm Screen w/CAD if perf and 3D James 08/02/23 [facility] Evaluation + Plan note Future Appointments Appointment Date:01/31/2024 11:00:00 AM Scheduled Provider:Sara Flood Location:[facility] Appointment Type: Open Future Scheduled [id number] 08/02/23Vitamin D 25 Hydroxy 08/02/23CBC w/ Auto Diff 08/02/23Comprehensive Metabolic Panel 08/02/23Lipid Panel 08/02/23Thyroid Stimulating Hormone 08/02/23Free T4 08/02/23 [facility] Evaluation + Plan note Future Appointments Appointment Date:01/31/2024 11:00:00 AM Scheduled Provider:Sara Flood Location:[facility] Appointment Type:[facility] Evaluation + Plan note Future Appointments Appointment Date:03/01/2024 02:40:00 PM Scheduled Provider:Sara Flood Location:[facility] Appointment Type:[facility] Evaluation + Plan note Future Appointments Appointment Date:04/11/2024 11:00:00 AM Scheduled Provider:Sara Flood Location:[facility] Appointment Type:[facility] Evaluation + Plan note Future Appointments Appointment Date:04/22/2024 02:00:00 PM Scheduled Provider: [facility] Type:EMG Unilateral Upper Extremity Appointment Date:05/17/2024 02:00:00 PM Scheduled Provider:Sara Flood Location:[facility] Appointment Type:[facility] Evaluation note Diagnosis Bipolar affective disorder, mixed, in full remission (HCC)- Primary Bipolar I disorder, most recent episode (or current) mixed, in full remission Insomnia due to mental disorder [facility] Pain of toe of left foot- Primary Contusion of left lesser toe(s) w/o damage to nail, init Verruca plantaris Plantar wart Verruca Viral warts, unspecified [facility] Narrative No data available for this section [facility] Hospital Discharge instructions No data available for this section [facility] Progress note No data available for this section [facility] Summary Purpose Family History No Family History Records FoundNo Family History Records FoundNo Family History Records Found No data available for this section No data available for this section No data available for this section No data available for this section No data available for this section No data available for this section No data available for this section No data available for this section No data available for this section No Family History Records FoundNo Family History Records FoundNo Family History Records FoundNo Family History Records FoundNo Family History Records FoundNo Family History Records FoundNo Family History Records FoundNo Family History Records FoundNo Family History Records FoundNo Family History Records FoundNo Family History Records FoundNo Family History Records FoundNo Family History Records Found Advance Directives No Advanced Directives Records FoundDocuments on File Type Date 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 female) PCP: Physician No I discussed risks, benefits and alternatives of a telephone visit telemedicine consultation with the patient (and any accompanying persons) including the risks that the patient's personal health details and medical records will be discussed over real-time, synchronous, interactive audio technology,the visit will not be recorded without the express consent of both the provider and the patient, and that there are inherent diagnostic limitations compared to [id number] evaluations. We elected toproceed with the telephone visit telemedicine consultation. HPI Patient was interviewed over the phone. Already quality was fair. Patient is here to establish careunder my supervision at the new location. Patient has been under my care for the last 4 years and her primary working diagnosis is bipolar disorder type I. Patient been maintained well on her currentregimen of medications. Patient reports no decline in her moods or behavior since [place] was [place] seenin [place]. She reported work is going well she has no new concerns to report. She denies any ongoing sadness or depressed moods. Denies any ongoing feelings of hopelessness, worthlessness or helplessness. Reports fair energy and motivation. Denies any ongoing excessive fatigueor tiredness. Sleep has been fair no issues falling or staying asleep. Sex drive is within normal limits. Appetite is within normal limits. She is not having any morbid thoughts. Denied any ongoing suicidal ideation and no plan. Currently she is not experiencing any manic/hypomanic mood symptoms. She is not reporting any pervasive irritability or inflated moods. Denies any ongoing racing thoughts or flight of ideas. Denied any distractibility or increased dizziness denied any ongoing increased goal-directed activities. Denies engaging in anything reckless or impulsive. Speech is of normal limits. No psychomotor agitationwas reported. Anxiety control has been fair. Sleep quality has been fair with the help of Belsomra. Patient denies any ongoing drug and alcohol abuse. Interpersonal issues were discussed: Support was provided Moods assessed: Reports stable moods. Denies any ongoing pervasive sadness or irritability Medications assessed: Patient has been compliant, denies any ongoing side effects, fair response, wants to continue with the same plan, The following portions of the patient's history were reviewed and updated as appropriate: allergies, current medications, past family history, past medical history, past social history, past surgicalhistory and problem list. Review of Systems Patient's Medications New Prescriptions No medications on file Previous Medications BACLOFEN (LIORESAL) 20 MG TABLET Half a tablet in the morning, half a tablet in the afternoon, and 1 1/2 tablets at bed time . DIAZEPAM (VALIUM) 2 MG TABLET Take 2 mg by mouth Take half a tablet to one tablet twice daily . LOSARTAN (COZAAR) 25 MG TABLET Take 25 mg by mouth daily . OXCARBAZEPINE (TRILEPTAL) 300 MG TABLET Take 450 mg by mouth nightly . UBROGEPANT 50 MG TAB 50 mg . Modified Medications Modified Medication Previous Medication LAMOTRIGINE (LAMICTAL) 200 MG TABLET lamoTRIgine (LAMICTAL) 200 MG tablet Take 2 (two) tablets (400 mg total) by mouth daily . Take 400 mg by mouth daily . LURASIDONE (LATUDA) 40 MG TAB lurasidone (LATUDA) 40 mg Tab Take 1 (one) tablet (40 mg total) by mouth daily . Take 40 mg by mouth daily . SUVOREXANT 20 MG TAB suvorexant 20 mg Tab Take 20 mg by mouth nightly . Take 20 mg by mouth nightly . Discontinued Medications No medications on file Assessment/Plan: Bipolar disorder type I, in full remission Anxiety disorder NOS Insomnia due to underlying mental disorder GAF: 75 Mental status examination: Patient is cooperative, speech is within normal limits, denies any ongoing racing thoughts or flight of ideas. Mood was reported as good. Denied any ongoing thought contentor thought process abnormalities. Denies any ongoing perceptual disturbances. Attention concentration is fair. Memory is intact. Insight and judgment is fair. Intellect and knowledge: Average Treatment Plan: Pharmacological management: Alternative medication plans were discussed with the patient/guardian. All relevant side effects and potential adverse effects were discussed with the patient/guardian. Standard cautions and potential benefits were discussed. FDA label and OFF label uses of medications were discussed. Patient/Guardian consented to the start/continuation of the following: Continue Latuda 40 g daily at supper Continue lamotrigine 200 mg 2 daily at bedtime Continue Belsomra 20 mg daily at bedtime Will monitor side effects and progress and adjust medications appropriately Crisis Intervention plan was discussed and agreed upon. Patient/Guardian will call 911 in case of emergency. Emergency contact information was provided to the patient/guardian. Laboratory and other tests: See orders. Psychotherapy: None Follow up as scheduled or return early if needed. School or community referral: None Treatment Goals and Objectives discussed. Other Referrals/Consults/Psychological Testing I have spent 15 minutes with the patient reviewing the HPI and Plan of Care. documented in this encounter* Nikki Perez MD - 11/20/2020 12:41 PM EDT Telephone Visit Via Phone Call [facility] [phone] Telephone Visit [facility] 11/20/2020 Nikki Perez MD Provider Location: [facility] Patient Location Professor Of Kinesiology: None Patient Location: Patient's Home Patient: Savanah Byers Date of : 1970 (50 y.o. female) PCP: Physician Shonna I discussed risks, benefits and alternatives of a telephone visit telemedicine consultation with the patient (and any accompanying persons) including the risks that the patient's personal health details and medical records will be discussed over real-time, synchronous, interactive audio technology,the visit will not be recorded without the express consent of both the provider and the patient, and that there are inherent diagnostic limitations compared to [id number] evaluations. We elected toproceed with the telephone visit telemedicine consultation. HPI Patient is interviewed over the phone for her routine psychotropic management follow-up visit. Audio quality was fair and patient was well engaged. Patient continues to do well on her current medications and is well maintained. Patient does not report any decline in her mood since her last visit. Patient continues to report stable and steady moods. At present she denies any ongoing pervasive sadness or anhedonia. Reports good energy and motivation, work is going well. Denies any excessive fatigue or tiredness. Sleep is adequate no issues falling or staying asleep. Reports good pain control. Appetite is within normal limits. Weight is steady. Denies any ongoing morbid thoughts. Denies any ongoing suicidal ideation intent or plan. Denies any ongoing manic/hypomanic mood symptoms. Denies any ongoing irritability or inflated moods. She is not reporting any ongoing racing thoughts or flight of ideas or increased busyness or increased goal-directed activities. Impulse control has been fair. Denies engaging in anything impulsive and reckless. No thought content or thought process abnormalities are present. We will Steven continues to help her initiate and maintain fair quality and quantity of sleep. She denies any ongoing drug or alcohol abuse. Medication assessed: Denies any ongoing side effects, fair compliance and good response. We will continue with the same plan Goals and objectives of treatment: Maintain mood stability Maintain good quality and quantity of sleep Treatment compliance The following portions of the patient's history were reviewed and updated as appropriate: allergies, current medications, past family history, past medical history, past social history, past surgicalhistory and problem list. Review of Systems Constitutional: Negative. HENT: Negative. Eyes: Negative. Respiratory: Negative. Cardiovascular: Negative. Gastrointestinal: Negative. Endocrine: Negative. Genitourinary: Negative. Musculoskeletal: Negative. Skin: Negative. Patient's Medications New Prescriptions No medications on file Previous Medications BACLOFEN (LIORESAL) 20 MG TABLET Half a tablet in the morning, half a tablet in the afternoon, and 1 1/2 tablets at bed time . DIAZEPAM (VALIUM) 2 MG TABLET Take 2 mg by mouth Take half a tablet to one tablet twice daily . LOSARTAN (COZAAR) 25 MG TABLET Take 25 mg by mouth daily . OXCARBAZEPINE (TRILEPTAL) 300 MG TABLET Take 450 mg by mouth nightly . UBROGEPANT 50 MG TAB 50 mg . Modified Medications Modified Medication Previous Medication LAMOTRIGINE (LAMICTAL) 200 MG TABLET lamoTRIgine (LAMICTAL) 200 MG tablet Take 2 (two) tablets (400 mg total) by mouth daily . Take 2 (two) tablets (400 mg total) by mouth daily . LURASIDONE (LATUDA) 40 MG TAB lurasidone (LATUDA) 40 mg Tab Take 1 (one) tablet (40 mg total) by mouth daily . Take 1 (one) tablet (40 mg total) by mouth daily. SUVOREXANT 20 MG TAB suvorexant 20 mg Tab Take 20 mg by mouth nightly . Take 20 mg by mouth nightly . Discontinued Medications No medications on file Assessment/Plan: Mental status examination: Patient was cooperative with the phone, her speech is within normal limits. Patient reports good mood. Denies any ongoing racing thoughts or flight of ideas. Denies any ongoing thought content or thought process abnormalities. Denies any ongoing perceptual disturbances. Denies any ongoing suicidal ideation intent or plan. Patient denies any ongoing homicidal ideation intent or plan. Impulse control is fair. Insight and judgment: Good. Memory: Intact, attention and concentration: Fair. Problem List Items Addressed This Visit Other Bipolar affective disorder, mixed, in full remission (HCC) - Primary Relevant Medications lurasidone (LATUDA) 40 mg Tab Lamotrigine 200 mg Insomnia due to mental disorder Relevant Medications suvorexant 20 mg Tab Treatment Plan: Pharmacological management: Alternative medication plans were discussed with the patient/guardian. All relevant side effects and potential adverse effects were discussed with the patient/guardian. Standard cautions and potential benefits were discussed. FDA label and OFF label uses of medications were discussed. Patient/Guardian consented to the start/continuation of the following: Continue Latuda 40 mg 1 daily at supper Continue lamotrigine 100 mg daily Continue Belsomra 20 mg daily at bedtime for sleep Will monitor side effects and progress and adjust medications appropriately Crisis Intervention plan was discussed and agreed upon. Patient/Guardian will call 911 in case of emergency. Emergency contact information was provided to the patient/guardian. Laboratory and other tests: See orders. Psychotherapy: Completed Follow up as scheduled or return early if needed. School or community referral: Completed Treatment Goals and Objectives discussed. Other Referrals/Consults/Psychological Testing: Completed I have spent 15 minutes with the patient reviewing the HPI and Plan of Care. documented in this encounter Assessments Diagnosis Bipolar affective disorder, mixed, in full remission (HCC)- Primary Bipolar I disorder, most recent episode (or current) mixed, in full remission Insomnia due to mental disorder Diagnosis Bipolar affective disorder, mixed, in full remission (HCC)- Primary Bipolar I disorder, most recent episode (or current) mixed, in full remission Insomnia due to mental disorder Additional Source Comments INFORMATION SOURCE (unrecogn ized section and content) DATE CREATED AUTHOR 08/03/2018 [facility] DATE CREATED AUTHOR AUTHOR'S ORGANIZ ATION 02/23/2021 [facility] DATE CREATED AUTHOR AUTHOR'S ORGANIZ ATION 06/27/2021 [facility] DATE CREATED AUTHOR AUTHOR'S ORGANIZ ATION 04/24/2024 [facility] DATE CREATED AUTHOR AUTHOR'S ORGANIZ ATION 04/25/2024 [facility] EPIC DATE CREATED AUTHOR AUTHOR'S ORGANIZ ATION 04/28/2024 [facility] Reason for Visit (unrecogniz ed section and content) Reason Comments Medication Management Reason Onset Date Comments Appointment 12/20/2012 Set up appt with Nyasia/Hernan Reason Comments Follow-up Med mgmt Source Comments (unrecognize d section and content) In the event this informatio n is protected by the Federal Confidentiality of Alcohol and Drug Abuse Patient Records regulations: The Federal rules restrict any use of the information to criminally investigate or prosecute any alcohol or drug abuse patient.[facility] Care Team (unrecognized sect ion and content) 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 This clinical summary was aggregated from multiple sources. Caution should be exercised in using it in the provision of clinical care. This summary normalizes information from multiple sources, and as a consequence, information in this document may materially change the coding, format and clinical context of patient data. In addition, data may be omitted in some cases. CLINICAL DECISIONS SHOULD BE BASED ON THE PRIMARY CLINICAL RECORDS. [facility] [employer] [facility]. provides no warranty or guarantee of the accuracy or completeness of information in this document.
== END 2024-05-09 12:56 | disposition home or self-care (01) ==
LOC: VC 12:56
PROVIDERS: PCP Radiology Diagnostic Radiology; Visit Provider Radiology Diagnostic Radiology
DX: I83.813 Varicose veins of bilateral lower extremities with pain (principal)
CPT/HCPCS: 93970; G0463

== ENCOUNTER 2024-07-10 09:00 | Outpatient (OUT) | payer BC, SELFPAY ==
--- NOTE | 2024-06-25 07:25 | V.VEINS.HP ---
Varicose Veins Patient in this day for EVLT of right GSV Russ Brennan MD personally performed the services described in this documentation, as scribed by Bijan Juarez RN in my presence and it is both accurate and complete. IBijan RN, am scribing for, and in the presence of, Dr. Russ Dela Cruz and in the presence of the patient. thigh: bilateral (symptoms right > left leg), knee: bilateral, calf: bilateral, ankle: bilateral and michael: bilateral aching, burning and cramping 8 2 years Worsened in recent months: Yes standing and heavy lifting analgesics, elevating extremities and compression stockings Reports muscle spasms of leg, bruising and limb pain History of lower extremity trauma: No Superficial thrombophlebitis: No Family history of varicose veins: yes Has patient had previous lower extremity venous surgery: No Patient has previously received the following treatment(s) for lower extremity varicose veins: Reports none Does patient have a history of : yes Does patient intend to have future pregnancies: no Has patient had lower extremity venous scan with relux testing: Yes Results: 4 years ago Support hose used: Yes Problems walking or doing physical activity: Yes How does it affect you: often has to rest and elevate due to pain Do you walk much: Yes Do you stand much: Yes Review of Systems ROS Narrative Russ Brennan MD personally performed the services described in this documentation, as scribed by Bijan Juarez RN in my presence and it is both accurate and complete. Bijan Brennan RN, am scribing for, and in the presence of, Dr. Russ Dela Cruz and in the presence of the patient. Status of ROS 10 or more systems reviewed and unremarkable except as noted in history and below Integumentary/Breast Reports: itching and changes in skin color Neurological Reports: weakness in extremities [facility] Medical History (Updated 04/29/24 @ 15:27 by Bijan Juarez) Bone spur ?M77.9 - Enthesopathy, unspecified (ICD-10) Disruption of anterior cruciate ligament of left knee ?S83.512A - Sprain of anterior cruciate ligament of left knee, initial encounter (ICD-10) Varicose veins of bilateral lower extremities with pain ?I83.813 - Varicose veins of bilateral lower extremities with pain (ICD-10) Hypertension ?I10 - Essential (primary) hypertension (ICD-10) Migraine ?G43.909 - Migraine, unspecified, not intractable, without status migrainosus (ICD-10) Surgical History (Updated 04/29/24 @ 15:27 by Bijna Juarez) H/O sinus surgery ?Z98.890 - Other specified postprocedural states (ICD-10) S/P reconstruction of ACL of left knee using bone-patellar tendon-bone autograft ?Z98.890 - Other specified postprocedural states (ICD-10) Family History (Updated 04/29/24 @ 15:27 by Bijan Juarez) Other Family history of cancer Family history of hypertension Varicose veins of bilateral lower extremities with pain Social History (Updated 04/29/24 @ 15:27 by Bijan Juarez) Within the past year, how often did you have a drink containing alcohol: 2-4 times a month Smoking status: Never smoker Non-prescribed substance use: cannabis (any form) Meds Home Medications and Allergies Home Medications ?Medication ?Instructions ?Recorded ?Confirmed ?Type atogepant 60 mg tablet (Qulipta) 60 mg PO DAILY 04/29/24 04/29/24 History baclofen 15 mg tablet 15 mg PO DAILY 04/29/24 04/29/24 History lamotrigine 200 mg tablet 100 mg PO BID 04/29/24 04/29/24 History (Lamictal) losartan 25 mg tablet (Cozaar) 25 mg PO DAILY 04/29/24 04/29/24 History oxcarbazepine 300 mg tablet 300 mg PO BID 04/29/24 04/29/24 History (Trileptal) semaglutide 1 mg/dose (4 mg/3 mL) 0.25 mg subcut QWEEK 04/29/24 04/29/24 History subcutaneous pen injector (Ozempic) ubrogepant 50 mg tablet (Ubrelvy) mg 04/29/24 History Allergies Allergy/AdvReac Type Severity Reaction Status Date / Time acetaminophen (From Vicodin) Allergy Intermediate Rash Verified 04/29/24 16:02 hydrocodone (From Vicodin) Allergy Intermediate Rash Verified 04/29/24 16:02 Penicillins Allergy Intermediate Rash Verified 04/29/24 16:02 Exam Narrative Exam Narrative: Russ Brennan MD personally performed the services described in this documentation, as scribed by Bijan Juarez RN in my presence and it is both accurate and complete. I, Bijan Juarez RN, am scribing for, and in the presence of, Dr. Russ Dela Cruz and in the presence of the patient. Constitutional Documenting provider has reviewed patient's vital signs: yes Common normals: oriented x3 Cardio Peripheral pulses: posterior tibial pulses present and dorsalis pedis pulses present Extremity Common normals: normal capillary refill General: calf tenderness and edema Right lower extremity: lower leg Right lower leg: inspection and palpation Left lower extremity: lower leg Left lower leg: inspection and palpation Neuro Common normals: oriented x3 Assessment and Plan Assessment and Plan (1) Varicose veins of bilateral lower extremities with pain: Plan f/u evaluation with physician along with right leg limited u/s Russ Brennan MD personally performed the services described in this documentation, as scribed by Bijan Juarez RN in my presence and it is both accurate and complete. I, Bijan Juarez RN, am scribing for, and in the presence of, Dr. Russ Dela Cruz and in the presence of the patient. Procedures Procedure Instructions Procedures Plan of care: Risks and benefits of the procedure were discussed at length and informed written consent was obtained.? Time-out completed for verification of correct patient, procedure and site.? Staff present during time-out: Bijan Juarez RN,? Russ Dela Cruz MD, [facility]. Time Out Time Patient prepped and procedure performed in usual sterile fashion. Risk of injury related to use of Diode laser and/or laser devices__CR___ ? Serial number of laser used :? [id number] Control panel self test performed, electrical cords in good condition, floor is dry, basin of water available, fire extinguisher in close proximity_CR__ Polycarbonate goggles available and Laser warning signs outside of doors___CR__ Eye protection provided to patient and staff in room_CR___ Use of laser retardant drapes and dull blackened instruments as directed__CR___ Use of nonflammable prep solutions and use of saline soaked sponges to protect tissues as indicated _CR___ Length cm Laser operated by ___Dr. Dela Cruz Physician verbal confirmation laser locked in place__CR__ Laser start time (date and time) _06/25/2024@ Laser stop time(date and time) __06/25/2024@ Jimenez _8.0___ Average laser use Joules Average laser use seconds Pulse continuous ___CR_? Pulse intermittent ___ Amount of Tumescent used Evaluated patient for signs and symptoms of electrical injury __CR___ ? Skin clear at insertion site __CR___ Patient tolerated procedure well.? Right leg Coban dressing applied to access site.? Applied right thigh high leg compression stocking. Will return on // for right leg limited venous ultrasound and exam. IRuss MD personally performed the services described in this documentation, as scribed by Bijan Juarez RN in my presence and it is both accurate and complete. I, Bijan Juarez RN, am scribing for, and in the presence of, Dr. Russ Dela Cruz and in the presence of the patient.
--- NOTE | 2024-06-25 07:29 | W.VEIN ---
Discharge Plan Discharge Disposition: Home, Self-Care Discharge Medications: No Action baclofen 15 mg tablet 15 mg PO DAILY oxcarbazepine [Trileptal] 300 mg tablet 300 mg PO BID losartan [Cozaar] 25 mg tablet 25 mg PO DAILY lamotrigine [Lamictal] 200 mg tablet 100 mg PO BID Ubrelvy 50 mg tablet Qulipta 60 mg tablet 60 mg PO DAILY Ozempic 1 mg/dose (4 mg/3 mL) pen injector 0.25 mg subcut QWEEK Rx Instructions: for 4 weeks Plan of Treatment: f/u evaluation with physician along with right leg limited u/s Patient Instructions: Endovenous Ablation (DC) Print Language: Danish
--- NOTE | 2024-07-08 15:01 | VEINCLINIC_ITS ---
Vital Signs 07/10/24 08:05 BP 126/62 BP Location Left Brachial BP Position Sitting BP Cuff Size Adult BP Source Manual Cuff Respiration 16 Pulse 91 H Pulse Source Monitor Pulse Oximetry (%) 99 Oxygen Delivery Method Room Air Comment The patient's blood pressure is elevated. Varicose Veins Patient in this day for EVLT of right GSV Eugene Brennan MD personally performed the services described in this documentation, as scribed by Bijan Juarez RN in my presence and it is both accurate and complete. IBijan RN, am scribing for, and in the presence of, Dr. Eugene Aj and in the presence of the patient. thigh: bilateral (symptoms right > left leg), knee: bilateral, calf: bilateral, ankle: bilateral and michael: bilateral aching, burning and cramping 8 2 years Worsened in recent months: Yes standing and heavy lifting analgesics, elevating extremities and compression stockings Reports muscle spasms of leg, bruising and limb pain History of lower extremity trauma: No Superficial thrombophlebitis: No Family history of varicose veins: yes Has patient had previous lower extremity venous surgery: No Patient has previously received the following treatment(s) for lower extremity varicose veins: Reports none Does patient have a history of : yes Does patient intend to have future pregnancies: no Has patient had lower extremity venous scan with relux testing: Yes Results: 4 years ago Support hose used: Yes Problems walking or doing physical activity: Yes How does it affect you: often has to rest and elevate due to pain Do you walk much: Yes Do you stand much: Yes Review of Systems ROS Narrative Eugene Brennan MD personally performed the services described in this documentation, as scribed by Bijan Juarez RN in my presence and it is both accurate and complete. Bijan Brennan RN, am scribing for, and in the presence of, Dr. Eugene Aj and in the presence of the patient. Status of ROS 10 or more systems reviewed and unremark able except as noted in history and below Integumentary/Breast Reports: itching and changes in skin color Neurological Reports: weakness in extremities [facility] Medical History (Updated 04/29/24 @ 15:27 by Bijan Juarez) Bone spur ?M77.9 - Enthesopathy, unspecified (ICD-10) Disruption of anterior cruciate ligament of left knee ?S83.512A - Sprain of anterior cruciate ligament of left knee, initial encounter (ICD-10) Varicose veins of bilateral lower extremities with pain ?I83.813 - Varicose veins of bilateral lower extremities with pain (ICD-10) Hypertension ?I10 - Essential (primary) hypertension (ICD-10) Migraine ?G43.909 - Migraine, unspecified, not intractable, without status migrainosus (ICD-10) Surgical History (Updated 07/10/24 @ 12:39 by Bijan Juarez) Status post laser ablation of incompetent vein ?Z98.890 - Other specified postprocedural states (ICD-10) H/O sinus surgery ?Z98.890 - Other specified postprocedural states (ICD-10) S/P reconstruction of ACL of left knee using bone-patellar tendon-bone autograft ?Z98.890 - Other specified postprocedural states (ICD-10) Family History (Updated 04/29/24 @ 15:27 by Bijan Juarez) Other Family history of cancer Family history of hypertension Varicose veins of bilateral lower extremities with pain Social History (Updated 04/29/24 @ 15:27 by Bijan Juarez) Within the past year, how often did you have a drink containing alcohol: 2-4 times a month Smoking status: Never smoker Non-prescribed substance use: cannabis (any form) Meds Home Medications and Allergies Home Medications ?Medication ?Instructions ?Recorded ?Confirmed ?Type atogepant 60 mg tablet (Qulipta) 60 mg PO DAILY 04/29/24 04/29/24 History baclofen 15 mg tablet 15 mg PO DAILY 04/29/24 04/29/24 History lamotrigine 200 mg tablet 100 mg PO BID 04/29/24 04/29/24 History (Lamictal) losartan 25 mg tablet (Cozaar) 25 mg PO DAILY 04/29/24 04/29/24 History oxcarbazepine 300 mg tablet 300 mg PO BID 04/29/24 04/29/24 History (Trileptal) semaglutide 1 mg/dose (4 mg/3 mL) 0.25 mg subcut QWEEK 04/29/24 04/29/24 History subcutaneous pen injector (Ozempic) ubrogepant 50 mg tablet (Ubrelvy) mg 04/29/24 History Allergies Allergy/AdvReac Type Severity Reaction Status Date / Time acetaminophen (From Vicodin) Allergy Intermediate Rash Verified 04/29/24 16:02 hydrocodone (From Vicodin) Allergy Intermediate Rash Verified 04/29/24 16:02 Penicillins Allergy Intermediate Rash Verified 04/29/24 16:02 Exam Narrative Exam Narrative: Eugene Brennan MD personally performed the services described in this documentation, as scribed by Bijan Juarez RN in my presence and it is both accurate and complete. I, Bijan Juarez RN, am scribing for, and in the presence of, Dr. Eugene Aj and in the presence of the patient. Constitutional Documenting provider has reviewed patient's vital signs: yes Common normals: oriented x3 Cardio Peripheral pulses: posterior tibial pulses present and dorsalis pedis pulses present Extremity Common normals: normal capillary refill General: calf tenderness and edema Right lower extremity: lower leg Right lower leg: inspection and palpation Left lower extremity: lower leg Left lower leg: inspection and palpation Neuro Common normals: oriented x3 Assessment and Plan Assessment and Plan (1) Varicose veins of bilateral lower extremities with pain: Plan f/u evaluation with physician along with right leg limited u/s Eugene Brennan MD personally performed the services described in this documentation, as scribed by Bijan Juarez RN in my presence and it is both accurate and complete. IBijan RN, am scribing for, and in the presence of, Dr. Eugene Aj and in the presence of the patient. Procedures Procedure Instructions Procedures Plan of care: Risks and benefits of the procedure were discussed at length and informed written consent was obtained.? Time-out completed for verification of correct patient, procedure and site.? Staff present during time-out: Bijan Juarez RN,? Eugene Aj MD, Holley Hernandez RDMS,. Time Out Time_946 Patient prepped and procedure performed in usual sterile fashion. Risk of injury related to use of Diode laser and/or laser devices? __CR___ ? Serial number of laser used :? [id number] Control panel self test performed, electrical cords in good condition, floor is dry, basin of water available, fire extinguisher in close proximity_CR__ Polycarbonate goggles available and Laser warning signs outside of doors___CR__ Eye protection provided to patient and staff in room_CR___ Use of laser retardant drapes and dull blackened instruments as directed__CR___ Use of nonflammable prep solutions and use of saline soaked sponges to protect tissues as indicated _CR___ Laser Site #1 Distal right leg Length __26 cm Joules: 1097 Seconds: 137 Site #2 Proximal right leg Joules: 598 Secons: 75 Laser operated by __Dr. Aj Physician verbal confirmation laser locked in place__CR__ Laser start time (date and time) _07/10/2024@_1004 Laser stop time(date and time) __07/10/2024@__1018 Jimenez _8.0___ Pulse continuous ___CR_? Pulse intermittent ___ Amount of Tumescent used __300cc____ Evaluated patient for signs and symptoms of electrical injury __CR___ ? Skin clear at insertion site __CR___ Patient tolerated procedure well.? Right leg Coban dressing applied to access site.? Applied right thigh high leg compression stocking. Will return on 07/17/2024 for right leg limited venous ultrasound and exam. IEugene MD personally performed the services described in this docume ntation, as scribed by Bijan Juarez RN in my presence and it is both accurate and complete. I, Bijan Juarez RN, am scribing for, and in the presence of, Dr. Eugene Aj and in the presence of the patient.
--- NOTE | 2024-07-08 15:23 | W.VEIN ---
Discharge Plan Discharge Disposition: Home, Self-Care Outpatient Diagnostics: VC Facility EST LMTD (Routine) Timeframe: 2 Weeks Facility: [facility] - Location: Vein Center Ordered By: Eugene Aj VC EXT Venous RT LMTD (Routine) Timeframe: 2 Weeks Facility: [facility] - Location: Vein Center Ordered By: Eugene Aj Follow Up Appointments: 07/17/2024 Plan of Treatment: f/u evaluation with physician along with right leg limited u/s Patient Instructions: Endovenous Ablation (DC) Print Language: Serbian Discharge Date/Time: 07/10/24 12:37
[2024-07-10 08:05] VITALS: BP 126/62; PULSE 91; O2SAT 99
--- NOTE | 2024-07-10 09:09 | VEIN_ITS ---
[address] [address] Patient Name: LUIS MANUEL BYERS MRN: [id number] date: 1970 Sex: F Assigned Patient Location: Current Patient Location: Accession/Order Number: [id number] Exam Date: 07/10/2024 09:09 Report Date: 07/10/2024 11:48 At the request of: ALONDRA CLEMENT Procedure: VC Endovenous Ablation 1VeinRT EXAMINATION: VC Endovenous Ablation 1Vein right great saphenous vein HISTORY: I83.813 - Varicose veins of bilateral lower extremities w... COMPARISON: No relevant comparison available. TECHNIQUE: The risks and benefits of the procedure had been previously discussed, and were rediscussed at length. Informed written consent was obtained. Holley Hernandez and Bijan Juarez assisted. Time out procedure was performed. The right lower extremity was prepared and draped in the usual sterile fashion to allow knee flexion in the sterile field. Duplex ultrasound probe was draped in a sterile cover, sterile transmission gel was used. Venous mapping was performed with the areas of dilation and large tributaries marked. The wire could not be advanced through an area of narrowing and scarring at the level of the knee therefore 2 separate accesses were made with the first segment treated measuring 26 cm in the second segment treated measuring 11 cm The diameter of the greater saphenous vein ranged from 4-12 mm. A 30 gauge needle and 1% buffered lidocaine was used to anesthetize the entry site. A 4 mm incision was made with a scalpel and the saphenous vein was entered percutaneously under direct ultrasound guidance with a micropuncture set, a single stick was successful in gaining access at both sites. A micro-guide wire was inserted and the needle removed. A micro-set including a dilator was inserted over the microwire and the needle and dilator were removed. A 0.018 guide wire was inserted through the micro-set and threaded through the saphenous vein to the saphenofemoral junction. The dilator was removed and an introducer sheath was inserted over the wire until the end of the sheath entered the saphenofemoral junction. The dilator and wire were removed and the 600 micron fiber was introduced and placed and positioned so that it extended beyond the sheath and was 3 cm peripheral to the saphenofemoral femoral junction. Final position of the fiber was determined by ultrasound guidance and duplex imaging. Tumescent anesthetic was delivered by ultrasound guidance. 300 cc of fluid was delivered along the entire course of the saphenous vein. The solution consisted of 1000 cc of normal saline with 40 mL of 1% lidocaine and 20 mL of sodium bicarbonate. A final positioning check was made. The energy source was turned on by means of the foot pedal and the fiber and sheath were withdrawn. The total number of Joules delivered was 598 proximally, 1097 distally. The laser was active for 75 seconds proximally, 137 seconds distal under continuous pulse, average laser use of 8 J. Laser start time 10:04 AM 07/10/2024 . Laser stop time 10:18 AM 07/10/2024 . A duplex ultrasound revealed compressibility and flow at the saphenofemoral junction immediately after the procedure. Hemostasis at the access site was achieved. The skin incision of the saphenous vein was closed with a 4 x 4. A compression stocking was applied. Postop instructions were given. A follow up appointment was recommended and scheduled. The patient tolerated the procedure well and was discharged in good condition . VEIN/VC Endovenous Ablation 1VeinRT IMPRESSION: Technically successful endovenous laser ablation right great saphenous vein Electronically authenticated by: ALONDRA CLEMENT Date: 07/10/2024 11:48
--- OUTSIDE RECORDS SUMMARY | 2024-07-10 09:20 | XMS_ITS | CCD ---
Author Organization [facility] Care Team Providers Care Arch Pad Cementer Name Role Phone Nataprawira, Mariana Unavailable Unavailable Nataprawira, Mariana Unavailable Unavailable Nataprawira, Mariana Unavailable Unavailable No, Physician Primary Care Provider UnavailRaleigh Randolph Primary Care Provider [phone] No, Physician Primary Care Provider UnavailNIKKI Olivares Attending Unavailable NO, PHYSICIAN Primary Care Unavailable GEHLOT, UPENDER Attending Unavailable NO, PHYSICIAN Primary Care Unavailable GEDEYVI, UPENDER Attending Unavailable SHONNA, PHYSICIAN Primary Care Unavailable DR ALONDRA CLEMENT V Consulting Unavailable URBANO, DR ALONDRA Brink Attending Unavailable DR ALONDRA CLEMENT V Admitting Unavailable Randa Billy Primary Care Physician [phone] Sara Green Primary Care Physician Unallocated, [place] Provider Primary Care Provider Alex Pena Attending Unavailable MIGUEL CAI Attending Unavailable MIGUEL CAI Attending Unavailable GEENA HANSEN Attending Unavailable GEENA HANSEN Attending Unavailable Sara Green Attending Unavailable GEENA HNASEN Admitting Unavailable GEENA HANSEN Attending Unavailable GEENA HANSEN Referring Unavailable Sara Green Attending Unavailable Sara Green Referring Unavailable Sara Green Admitting Unavailable Sara Green Attending Unavailable Evelyn Greenbekaran Cueva Admitting Unavailable Sara Green Attending Unavailable Sara Green Attending Unavailable Sraa Green Attending Unavailable Sara Green Attending Unavailable Sara Green Attending Unavailable Sara Green Attending Unavailable Sara Green Attending Unavailable Sara Green Attending Unavailable Sara Green Attending Unavailable Sara Green Admitting Unavailable Sara Green Attending Unavailable Aron Echevarria Attending Unavailable Sara Green Attending Unavailable Sara Green Attending Unavailable Sara Green Referring Unavailable Sara Green Admitting Unavailable Sara Green Attending Unavailable Sara Green Admitting Unavailable Allergies Allergy Classification Reported Allergen(s) Allergy Type Date of Onset Reaction(s) Facility Acetaminophen / HYDROcodone (3 sources) Acetaminophen / HYDROcodone; Translations: [HYDROCODONE-ACET AMINOPHEN] Drug Allergy 9 migraines for 2 weeks [facility] Comment on above: Can take Vicodin ES but not regular vicodin Penicillins (antibiotic) (4 sources) Penicillins; Translations: [PENICILLINS] Drug Allergy 3 Rash, Hives [facility] (20 sources) Acetaminophen / HYDROcodone; Translations: [acetaminophen-hy drocodone] Drug Allergy 9 Headache [facility] Comment on above: Can take Vicodin ES but not regular vicodin Can take Vicodin ES but not regular vicodin (20 sources) Penicillins; Translations: [penicillins] Propensity to adverse reactions to drug 3 Hives, Rash [facility] (2 sources) Penicillin G Drug Allergy 3 [facility] (4 sources) Acetaminophen / HYDROcodone; Translations: [Vicodin] Drug Allergy [facility] Repository Medications Current Medications Medication Drug Class(es) Dates Sig (Normalized) Sig (Original) 0.5 ML semaglutide 0.5 MG/ML Auto-Injector [Wegovy] (5 sources) Start: 04-12-2024 inject 0.25 mg by subcutaneous injection every week Wegovy (0.25 mg dose) subcutaneous solution 0.25 mg, SubCutaneous, qWeek, # 4 EA, Refills(s) 0, Pharmacy: [facility], 171.5, cm, 04/12/24 10:56:00 EDT, Height/Length Dosing, 83.9, kg, 04/12/24 10:56:00 EDT, Weight Dosing Start Date: 04/12/24 Status: Ordered acetaminophen 500 mg oral tablet (17 sources) Start: 01-26-2023 take 1 tablet by mouth every six hours Tylenol Extra Strength 500 mg oral tablet 500 mg = 1 tab(s), Oral, q6hr, Refills(s) 0 Start Date: 01/26/23 Status: Ordered atogepant 60 MG Oral Tablet [Qulipta] (4 sources) Start: 05-17-2024 take 1 tablet by mouth once daily Qulipta 60 mg oral tablet 60 mg = 1 tab(s), Oral, Daily, Refills(s) 0 Start Date: 05/17/24 Status: Ordered baclofen 20 mg oral tablet [...] day(s), # 42 cap(s), Refills(s) 0, Pharmacy: [facility], 170, cm, 05/17/22 16:44:00 EDT, Height/Length Dosing, 90.1, kg, 05/17/22 16:44:00 EDT, Weight Dosing Start Date: 05/17/22 Stop Date: 05/31/22 Status: Ordered betamethasone 0.001 mg/mg topical ointment (4 sources) Corticosteroid Start: 08-17-2023 betamethasone Top valerate 0.1% Oint 1 codie, Topical, BID, 45 gram, Refill(s) 0, cover with tegaderm/ telfa to affected area, [facility], 171.5, cm, 08/17/23 13:03:00 EST, Height/Length Dosing, 89.1, kg, 08/17/23 13:03:00 EST, Weight Dosing Start Date: 08/17/23 Status: Ordered 12 hr buPROPion hydrochloride 150 mg extended release oral tablet (8 sources) Aminoketone Start: 03-01-2024 take 1 tablet by mouth twice daily Wellbutrin SR 150 mg Tab-ER 150 mg = 1 tab(s), Oral, BID, # 60 tab(s), Refills(s) 1, Pharmacy: [facility], 171.5, cm, 03/01/24 15:06:00 EDT, Height/Length Dosing, 84.5, kg, 03/01/24 15:06:00 EDT, Weight Dosing Start Date: 03/01/24 Status: Ordered Start: 01-31-2024 take 1 tablet by diana th once daily Wellbutrin SR 150 mg Tab-ER 150 mg = 1 tab(s), Oral, Daily, # 30 tab(s), Refills(s) 0, Pharmacy: [facility], 171.5, cm, 01/31/24 11:29:00 EDT, Height/Length Dosing, 84.6, kg, 01/31/24 11:29:00 EDT, Weight Dosing Start Date: 01/31/24 Status: Ordered Start: 08-17-2023 Wellbutrin SR 150 mg Tab-ER 150 mg = 1 tab(s), Oral, BID, once a day x 1 month then increased, # 180 tab(s), Refills(s) 0, Pharmacy: [facility], 171.5, cm, 08/17/23 13:03:00 EST, Height/Length Dosing, 89.1, kg, 08/17/23 13:03:00 EST, Weight Dosing Start Date: 08/17/23 Status: Ordered take 1 tablet by diana th every twelve hours in the morning buPROPion [...] Daily Start Date: 11/01/21 Status: Ordered Calcium (8 sources) Phosphate Binder, Calcium Start: 01-31-2024 take [...] q12hr, # 20 cap(s), Refills(s) 0, Pharmacy: [facility], 170, cm, 06/08/22 11:55:00 EDT, Height/Length Dosing, 88.8, kg, 06/08/22 11:55:00 EDT, Weight Dosing Start Date: 06/08/22 Status: Ordered clindamycin 300 mg oral capsule (1 source) Lincosamide Antibacterial Start: 01-13-2023 End: 01-20-2023 take 1 capsule by mouth every six hours clindamycin 300 mg oral cap 300 mg = 1 cap(s), Oral, q6hr, X 7 day(s), # 28 cap(s), Refills(s) 0, Pharmacy: [facility], 170, cm, 01/04/23 11:46:00 EDT, Height/Length [...] cough and congestion, 120 mL, Refill(s) 0, [facility], 170, cm, 05/17/22 16:44:00 EDT, Height/Length [...] day(s), # 14 tab(s), Refills(s) 0, Pharmacy: [facility], 170, cm, 12/23/21 16:48:00 EDT, Height/Length Dosing, 88, kg, 12/23/21 16:48... Start Date: 12/23/21 Stop Date: 12/30/21 Status: Ordered Fish Oils (8 sources) Start: 01-31-2024 take 1 tablet by mouth once daily Hiko-3 Fish Oil 1 tab, Oral, Daily, Refills(s) 0 Start Date: 01/31/24 Status: Ordered fluticasone propionate 0.05 mg/actuat metered dose nasal spray (19 sources) Corticosteroid Start: 06-14-2024 Flonase 0.05 mg/inh Orinda 2 spray(s), Nasal, Daily, 16 gram, Refill(s) 4, each nostril, [facility], 171, cm, 06/14/24 15:03:00 EST, Height/Length Dosing, 78.5, kg, 06/14/24 15:03:00 EST, Weight Dosing Start Date: 06/14/24 Status: Ordered Start: 01-04-2023 Flonase 0.05 m g/inh Orinda 2 spray(s), Nasal, Daily, 16 gram, Refill(s) 0, each nostril, [facility], 170, cm, 01/04/23 11:46:00 EDT, Height/Length Dosing, 87.5, kg, 01/04/23 11:46:00 EDT, Weight Dosing Start Date: 01/04/23 Status: Ordered Start: 05-17-2022 take 1 spray(s) nasa l route twice daily fluticasone 0.05 mg/inh Nasal Orinda 1 spray(s), Nasal, BID, 16 gram, Refill(s) 0, each nostril, [facility], 170, cm, 05/17/22 16:44:00 EDT, Height/Length Dosing, 90.1, kg, 05/17/22 16:44:00 EDT, Weight Dosing Start Date: 05/17/22 Status: Ordered Start: 09-22-2021 take 1 spray(s) nasa l route twice daily fluticasone 0.05 mg/inh Nasal Orinda 1 spray(s), Nasal, BID, 16 gram, Refill(s) 0, each nostril, [facility], 170, cm, 09/22/21 11:38:00 EST, Height/Length Dosing, 87.3, kg, 09/22/21 11:38:00 EST, Weight Dosing Start Date: 09/22/21 Status: Ordered fluticasone 0.05 mg/inh Nasal Orinda (5 sources) Start: 05-17-2022 take 1 spray(s) nasal route twice daily fluticasone 0.05 mg/inh Nasal Orinda 1 spray(s), Nasal, BID, 16 gram, Refill(s) 0, each nostril, [facility], 170, cm, 05/17/22 16:44:00 EDT, Height/Length Dosing, 90.1, kg, 05/17/22 16:44:00 EDT, Weight Dosing Start Date: 05/17/22 Status: Ordered Start: 09-22-2021 take 1 spray(s) nasa l route twice daily fluticasone 0.05 mg/inh Nasal Orinda 1 spray(s), Nasal, BID, 16 gram, Refill(s) 0, each nostril, [facility], 170, cm, 09/22/21 11:38:00 EST, Height/Length Dosing, 87.3, kg, 09/22/21 11:38:00 EST, Weight Dosing Start Date: 09/22/21 Status: Ordered hydrOXYzine hydrochloride 25 mg oral tablet (20 sources) Antihistamine Start: 03-23-2022 hydrOXYzine hydrochloride 25 mg Tab 25 mg = 1 tab(s), Oral, As Directed, Refills(s) 0 Start Date: 03/23/22 Status: Ordered lamoTRIgine 200 mg oral tablet (20 sources) Mood Stabilizer, Anti-epileptic Agent Start: 05-15-2020 End: 02-22-2021 take 2 tablets by mouth once daily lamotrigine 200 mg Tab 400 mg = 2 tab(s), Oral, Daily, # 180 tab(s), Refills(s) 0, Pharmacy: [facility], 170, cm, 03/19/20 13:46:00 EDT, Height/Length [...] Start: 02-07-2024 take 1 tablet by mouth once daily losartan 50 mg Tab 50 mg = 1 tab(s), Oral, Daily, # 180 tab(s), Refills(s) 3, Pharmacy: [facility], 171.5, cm, 01/31/24 11:29:00 EDT, Height/Length Dosing, 84.6, kg, 01/31/24 11:29:00 EDT, Weight Dosing Start Date: 02/07/24 Status: Ordered Start: 02-07-2024 take 1 tablet by diana th twice daily losartan 50 mg Tab 50 mg = 1 tab(s), Oral, BID, # 180 tab(s), Refills(s) 3, Pharmacy: [facility], 171.5, cm, 01/31/24 11:29:00 EDT, Height/Length Dosing, 84.6, kg, 01/31/24 11:29:00 EDT, Weight Dosing Start Date: 02/07/24 Status: Ordered Start: 10-06-2023 take 1 tablet by diana twice daily losartan 50 mg Tab 50 mg = 1 tab(s), Oral, BID, # 180 tab(s), Refills(s) 0, Pharmacy: [facility], 171.5, cm, 08/31/23 13:49:00 EST, Height/Length Dosing, 86.3, kg, 08/31/23 13:49:00 EST, Weight Dosing Start Date: 10/06/23 Status: Ordered Start: 07-18-2023 take 1 tablet by [facility] once daily losartan 25 mg Tab 25 mg = 1 tab(s), Oral, Daily, # 90 tab(s), Refills(s) 0, Pharmacy: [facility], 171.5, cm, 01/26/23 12:01:00 EDT, Height/Length Dosing, 86.8, kg, 01/26/23 12:01:00 EDT, Weight Dosing Start Date: 07/18/23 Status: Ordered Start: 03-05-2020 End: 03-18-2023 take 1 tablet by mouth once daily losartan 25 mg Tab 25 mg = 1 tab(s), Oral, Daily, # 90 tab(s), Refills(s) 3, Pharmacy: [facility], 170, cm, 05/17/22 16:44:00 EDT, Height/Length [...] supper, # 90 tab(s), Refills(s) 1, Pharmacy: [facility], 170, cm, 03/19/20 13:46:00 EDT, Height/Length Dosing, 76.5, kg, 03/19/20 13:46:00 EDT, Weight Dosing Start Date: 05/15/20 Status: Ordered methylPREDNISolone 4 mg oral tablet (2 sources) Corticosteroid Start: 03-01-2024 End: 03-07-2024 Medrol 4 mg Tab = 1 packet(s), Oral, As Directed, as directed on package labeling, X 6 day(s), # 21 tab(s), Refills(s) 0, Pharmacy: [facility], 171.5, cm, 03/01/24 15:06:00 EDT, Height/Length Dosing, 84.5, kg, 03/01/24 15:06:00 EDT, Weight Dosing Start Date: 03/01/24 Stop Date: 03/07/24 Status: Ordered Start: 01-31-2024 End: 02-06-2024 Medrol 4 mg Tab = 1 packet(s ), Oral, As Directed, as directed on package labeling, X 6 day(s), # 21 tab(s), Refills(s) 0, Pharmacy: [facility], 171.5, cm, 01/31/24 11:29:00 EDT, Height/Length Dosing, 84.6, kg, 01/31/24 11:29:00 EDT, Weight Dosing Start Date: 01/31/24 Stop Date: 02/06/24 Status: Ordered Multi Vitamin+ (8 sources) Start: 01-31-2024 take 1 tablet by mouth once daily Multi Vitamin+ 1 tablet, Oral, Daily, Refill(s) 0 Start Date: 01/31/24 Status: Ordered Naltrexone (1 source) Opioid Antagonist Start: 01-31-2024 take 2 capsules by mouth once daily naltrexone 4.5 mg oral capsule = 2 cap(s), Oral, Daily, # 60 cap(s), Refills(s) 0, Pharmacy: [facility], 171.5, cm, 01/31/24 11:29:00 EDT, Height/Length Dosing, 84.6, kg, 01/31/24 11:29:00 EDT, Weight Dosing Start Date: 01/31/24 Status: Ordered naproxen 500 mg oral tablet (20 sources) Nonsteroidal Anti-inflammatory Drug Start: 01-31-2024 naproxen 500 mg Tab 500 mg = 1 tab(s), Oral, BID, take 14 days BID ., # 60 tab(s), Refills(s) 0, Pharmacy: [facility], 171.5, cm, 01/31/24 11:29:00 EDT, Height/Length Dosing, 84.6, kg, 01/31/24 11:29:00 EDT, Weight Dosing Start Date: 01/31/24 Status: Ordered Start: 01-26-2023 take 1 tablet by diana every eight hours naproxen sodium 220 mg Tab 220 mg = 1 tab(s), Oral, q8hr, Refills(s) 0 Start Date: 01/26/23 Status: Ordered Start: 10-04-2021 take 1 tablet by diana twice daily naproxen 500 mg Tab 500 mg = 1 tab(s), Oral, BID, Take one tab by mouth two times a day, # 14 tab(s), Refills(s) 0, Pharmacy: [facility], 170, cm, 09/22/21 11:38:00 EST, Height/Length Dosing, 82, kg, 10/04/21 11:38:00 EST, Weight Dosing Start Date: 10/04/21 Status: Ordered take 1 capsule by mo [facility] in the morning Naproxen Sodium 220 MG capsule Take 1 capsule by mouth in the morning. 0 Active ondansetron 4 mg disintegrating oral tablet (5 sources) Serotonin-3 Receptor Antagonist Start: 05-17-2024 take 1 tablet by mouth every six hours as needed for nausea ondansetron 4 mg Dis Tab 4 mg = 1 tab(s), Oral, q6hr, PRN Nausea/Vomiting, # 12 tab(s), Refills(s) 0, Pharmacy: [facility], 171.5, cm, 05/17/24 14:17:00 EDT, Height/Length Dosing, 79.1, kg, 05/17/24 14:17:00 EDT, Weight Dosing Start Date: 05/17/24 Status: Ordered Start: 04-12-2024 take 1 tablet by diana every six hours as needed for nausea Zofran 4 mg Tab 4 mg = 1 tab(s), Oral, q6hr, PRN Nausea, # 30 tab(s), Refills(s) 0, Pharmacy: [facility], 171.5, cm, 04/12/24 10:56:00 EDT, Height/Length Dosing, 83.9, kg, 04/12/24 10:56:00 EDT, Weight Dosing Start Date: 04/12/24 Status: Ordered OXcarbazepine 300 mg oral tablet (20 sources) Anti-epileptic Agent Start: 02-14-2020 OXcarbaze pine (TrileptaL) 300 MG tablet Take 450 mg by mouth nightly . 0 02/14/2020 Active Start: 02-14-2020 take 1 tablet by diana th twice daily Trileptal 300 mg Tab 300 mg = 1 tab(s), Oral, BID, Refills(s) 0 Start Date: 02/14/20 Status: Ordered Start: 02-14-2020 take 1.5 tablets by mouth at bedtime Trileptal 300 mg Tab See Instructions, 1.5 tab(s) Oral Bedtime, Refills(s) 0 Start Date: 02/14/20 Status: Ordered predniSONE 10 mg oral tablet (3 sources) Start: 08-31-2023 predniSONE 10 mg Tab = 1 -, Oral, As Directed, Take 3 tabs by mouth daily x5 days, then 2 tabs daily x5 days, then 1 tab daily x5 days., # 30 tab(s), Refills(s) 0, Pharmacy: [facility], 171.5, cm, 08/31/23 13:49:00 EST, Height/Length Dosing, 86.3, kg, 08/31/23 13:49:00 EST, Weight Dosing Start Date: 08/31/23 Status: Ordered rimegepant 75 mg disintegrating oral tablet (16 sources) Start: 01-04-2023 Nurtec ODT 75 mg [...] g47.0, # 90 tab(s), Refills(s) 1, Pharmacy: [facility] 170, cm, 03/19/20 13:46:00 EDT, [...] on above: Take 1 capsule by mo uth once daily. Problems Active Problems Problem Classification Problem Date Documented Date Episodic/Chronic Acquired foot deformities (20 sources) Acquired hallux rigidus; Translations: [Hallux rigidus, unspecified foot] Onset: 02-12-2023 Resolved: 02-12-2023 10-18-2013 Chronic Comment on above: RIGHT FOOT RIGHT FOOT Administrative/social admission (6 sources) Counseling procedure with explicit context; Translations: [Dietary counseling and surveillance] Onset: 08-17-2023 Episodic Allergic reactions (13 sources) Allergic disposition; Translations: [Other allergy, initial encounter] Onset: 08-17-2023 Episodic Anxiety disorders (20 sources) Anxiety; Translations: [Posttraumatic stress disorder] Onset: 07-28-2023 05-26-2014 Chronic Chronic obstructive pulmonary disease and bronchiectasis (11 sources) Bronchitis 08-31-2023 Episodic Disorders of lipid metabolism (7 sources) Hyperlipidemia; Translations: [Hyperlipidemia, unspecified] Onset: 04-12-2024 [...] recent episode mixed] Onset: 08-21-2020 08-21-2020 Chronic Mycoses (4 sources) Onychomycosis due to dermatophyte ; Translations: [Tinea unguium] Onset: 06-14-2024 Episodic Nausea and vomiting (7 sources) Nausea; Translations: [Nausea] Onset: 04-12-2024 Episodic [...] Onset: 03-01-2024 Episodic Other connective tissue disease (7 sources) Tendinitis of right elbow 03-01-2024 Episodic Other liver diseases (1 source) Disease of liver; Translations: [Other specified diseases of liver] Onset: 06-14-2024 Chronic Other liver diseases (3 sources) Liver cyst 06-14-2024 Chronic Other liver diseases (2 sources) Enzyme level - finding; Translations: [Abnormal levels of other serum enzymes] Onset: 05-17-2024 Episodic Other liver diseases (4 sources) High lipase level in serum 05-17-2024 Episodic Other lower respiratory disease (20 sources) Dyspnea on exertion; Translations: [Shortness of breath] Onset: 07-28-2023 05-06-2021 Episodic Other nervous system disorders (2 sources) Paresthesia; Translations: [Paresthesia of skin] Onset: 01-31-2024 Episodic Other nervous system disorders (8 sources) Paresthesia of hand 01-31-2024 Episodic Other nutritional; endocrine; and metabolic disorders (8 sources) Obese class I; Translations: [Body mass [...] nutritional; endocrine; and metabolic disorders (20 sources) Overweight; Translations: [Overweight] Onset: 08-02-2023 09-17-2020 [...] done] Onset: 03-23-2022 Episodic Other skin disorders (8 sources) Swelling of hand 01-31-2024 Episodic Other upper respiratory disease (18 sources) Seasonal allergy; Translations: [Other seasonal allergic rhinitis] Onset: 02-12-2023 01-17-2023 Chronic Other upper respiratory infections (15 sources) Sinusitis; Translations: [Chronic sinusitis] Onset: 12-23-2021 12-23-2021 Chronic Otitis media and related conditions (20 sources) Finding of fluid behind tympanic membrane; Translations: [Unspecified nonsuppurative otitis media, bilateral] Onset: 07-28-2023 01-17-2023 Episodic Residual codes; unclassified (6 sources) Patient encounter status; Translations: [Other specified [...] Spondylosis; intervertebral disc disorders; other back problems (13 sources) Low back pain; Translations: [Low back [...] Test Name Value Interpretation Reference Range Facility US Abdomen, Limitedon 2023 US Abdomen, Limited Exam Date/Time: 06/19/2024 07:16 EST Reason for Exam: R74.8;Abnormal CT Report IMPRESSION: SIMPLE CYST RIGHT HEPATIC LOBE. CHOLECYSTECTOMY. CLINICAL HISTORY: Abnormal CT, R74.8 COMPARISON: NONE. FINDINGS: Liver normal in size, shape, and echogenicity. 1.5 cm simple cyst, right hepatic lobe, with second 8 mm similar cyst found more caudally. No intrahepatic, and no extrahepatic ductal dilatation identified. Common duct measures 6 mm. Color-flow without anomaly. Gallbladder surgically absent. Pancreatic body normal in size, shape, and echogenicity. Remainder of pancreas obscured by overlying bowel gas. Ordering Provider: Sara Green FINAL REPORT Dictated: 06/19/2024 2:10 pm Duane Vazquez MD Signed (Electronic Signature): 06/19/2024 2:10 pm Signed by: Duane Vazquez MD Transcribed by: NOREEN Technologist: JOSE Robison [facility] CHEMISTRYOrdered By: SYSTEM SYSTEM on 06-17-2024 Albumin [Mass/Vol] 4.9 g/dL Normal 3.3 - 5.0 gm/dL [facility] Albumin/Globulin [Mass ratio] 2.0 {ratio} Normal 1.1 - 2.2 [facility] ALP [Catalytic activity/Vol] 96 [iU]/d Normal 21 - 98 Int._Unit/L [facility] ALT No additional P-5'-P [Catalytic activity/Vol] 21 [iU]/d Normal 6 - 46 Int._Unit/L [facility] Anion gap [Moles/Vol] 9 mmol/L Normal 6 - 16 mEq/L R emisol Chem AST [Catalytic activity/Vol] 24 [iU]/d Normal 5 - 43 Int._Unit/L [facility] Bilirubin [Mass/Vol] 0.5 mg/dL Normal 0.0 - 1 .1 mg/dL [facility] Calcium [Mass/Vol] 10.2 mg/dL Normal 8.9 - 11. 1 mg/dL [facility] Chloride [Moles/Vol] 105 mmol/L Normal 101 - 1 11 mmol/L [facility] Cholesterol [Mass/Vol] 237 mg/dL High 120 - 200 mg/dL [facility] Cholesterol in HDL [Mass/Vol] 61 mg/dL Invalid Interpretation Code [facility] Comment on above: Result Comment: '>= 60 LOW RISK' '<= 40 HIGH RISK' Cholesterol in LDL [Mass/Vol] 141 mg/dL High <=129mg/dL [facility] Cholesterol in VLDL [Mass/Vol] 22 mg/dL Normal 7 - 40 mg/dL [facility] CO2 [Moles/Vol] 30 mmol/L Normal 21 - 31 mmol/L [facility] Creatinine [Mass/Vol] 0.8 mg/dL Normal 0.5 - 1.3 mg/dL [facility] eGFR 88 mL/min/1.73 m2 Normal >=59mL/min /1 .73 m2 [facility] Globulin (S) [Mass/Vol] 2.5 g/dL Normal 1.4 - 4.0 gm/dL [facility] Glucose [Mass/Vol] 98 mg/dL Normal 55 - 199 mg/dL [facility] Lipase [Catalytic activity/Vol] 22 U/L Normal 13 - 58 unit/L [facility] Potassium [Moles/Vol] 3.9 mmol/L Normal 3.5 - 5.3 mmol/L [facility] Protein [Mass/Vol] 7.4 g/dL Normal 6.0 - 7.8 gm/dL [facility] Sodium [Moles/Vol] 140 mmol/L Normal 135 - 145 mmol/L [facility] Triglyceride [Mass/Vol] 112 mg/dL Normal <=149mg/dL [facility] Urea nitrogen [Mass/Vol] 10 mg/dL Normal 5 - 21 mg/dL [facility] Urea nitrogen/Creatinine [Mass ratio] 12 mg/mg Normal 10 - 20 [facility] CMPon 06-17-2024 Albumin [Mass/Vol] 4.9 g/dL Normal 3.3-5.0 [facility] Comment on above: Performed By: #### 2 [id number] #### [facility] [address] [place] [address] Albumin/Globulin (S) [Mass conc ratio] 2.0 Normal 1.1-2.2 [facility] Comment on above: Performed By: #### 2 [id number] #### [facility] [address] [place] [address] ALP [Catalytic activity/Vol] 96 Int._Unit/L Normal 21-98 [facility] Comment on above: Performed By: #### 2 [id number] #### [facility] [address] [place] [address] ALT No additional P-5'-P [Catalytic activity/Vol] 21 Int._Unit/L Normal 6-46 [facility] Comment on above: Performed By: #### 2 [id number] #### [facility] [address] [place] [address] Anion gap [Moles/Vol] 9 mmol/L Normal 6-16 [facility] Comment on above: Performed By: #### 2 [id number] #### [facility] [address] [place] [address] AST [Catalytic activity/Vol] 24 Int._Unit/L Normal 5-43 [facility] Comment on above: Performed By: #### 2 [id number] #### [facility] [address] [place] [address] Bilirubin [Mass/Vol] 0.5 mg/dL Normal 0.0-1.1 [facility] Comment on above: Performed By: #### 2 [id number] #### [facility] [address] [place] [address] Calcium [Mass/Vol] 10.2 mg/dL Normal 8.9-11.1 [facility] Comment on above: Performed By: #### 2 [id number] #### [facility] [address] [place] [address] Chloride [Moles/Vol] 105 mmol/L Normal 101-111 [facility] Comment on above: Performed By: #### 2 [id number] #### [facility] [address] [place] [address] CO2 [Moles/Vol] 30 mmol/L Normal 21-31 [facility] Comment on above: Performed By: #### 2 [id number] #### [facility] [address] [place] [address] Creatinine [Mass/Vol] 0.8 mg/dL Normal 0.5-1.3 [facility] Comment on above: Performed By: #### 2 [id number] #### [facility] [address] [place] [address] Globulin (S) [Mass/Vol] 2.5 g/dL Normal 1.4-4.0 [facility] Comment on above: Performed By: #### 2 [id number] #### [facility] [address] [place] [address] Glucose [Mass/Vol] 98 mg/dL Normal 55-199 [facility] Comment on above: Performed By: #### 2 [id number] #### [facility] [address] [place] [address] Potassium [Moles/Vol] 3.9 mmol/L Normal 3.5-5.3 [facility] Comment on above: Performed By: #### 2 [id number] #### [facility] [address] [place] [address] Protein [Mass/Vol] 7.4 g/dL Normal 6.0-7.8 [facility] Comment on above: Performed By: #### 2 [id number] #### [facility] [address] [place] [address] Sodium [Moles/Vol] 140 mmol/L Normal 135-145 [facility] Comment on above: Performed By: #### 2 [id number] #### [facility] [address] [place] [address] Urea nitrogen [Mass/Vol] 10 mg/dL Normal 5-21 [facility] Comment on above: Performed By: #### 2 [id number] #### [facility] [facility] [address] [place] [address] Urea nitrogen/Creatinine [Mass ratio] 12 No Units Normal 10-20 [facility] Comment on above: Performed By: #### 2 [id number] #### [facility] [address] [place] [address] Lipase Levelon 06-17-2024 Lipase [Catalytic activity/Vol] 22 U/L Normal 13-58 [facility] Comment on above: Performed By: #### 2 [id number] #### [facility] [address] [place] [address] Lipid Panelon 06-17-2024 Cholesterol [Mass/Vol] 237 mg/dL High 120-200 [facility] Comment on above: Performed By: #### 2 [id number] #### [facility] [address] [place] [address] Cholesterol in HDL [Mass/Vol] 61 mg/dL Invalid Interpretation Code [facility] Comment on above: Result Comment: '>= 60 LOW RISK' '<= 40 HIGH RISK' Performed By: #### 2 [id number] #### [facility] [address] [place] [address] Cholesterol in LDL [Mass/Vol] 141 mg/dL High <=129 [facility] Comment on above: Performed By: #### 2 [id number] #### [facility] [address] [place] [address] Cholesterol in VLDL [Mass/Vol] 22 mg/dL Normal 7-40 [facility] Comment on above: Performed By: #### 2 [id number] #### [facility] [address] [place] [address] Triglyceride [Mass/Vol] 112 mg/dL Normal <=149 [facility] Comment on above: Performed By: #### 2 [id number] #### [facility] [address] [place] [address] eGFRon 06-17-2024 eGFR 88 mL/min/1.73 m2 Normal >=59 [facility] Comment on above: Performed By: #### 1 [id number] #### [facility] [address] [place] [address] Ambulatory Visit Summaryon 08-14-2023 Ambulatory Visit Summary Ambulatory Visit Summary ZEESHANSAVANAH Teodoro :1970 Visit Date:06/14/2024 Ambulatory Visit Instructions Your Diagnosis Liver cyst Encounter for weight management Elevated lipase Nausea Overweight Onychomycosis BMI 30.0-30.9,adult Fluid level behind tympanic membrane of both ears Left otitis media Your Care Team Attending Physician - Sara Flood Primary Care Physician - Sara Flood This Is Your Medications List fluticasone nasal (Flonase 0.05 mg/inh Orinda) Contact prescribing physician if questions or concerns acetaminophen (Tylenol Extra Strength 500 mg oral tablet) atogepant (Qulipta 60 mg oral tablet) baclofen (baclofen 20 mg Tab) busPIRone (busPIRone 10 mg Tab) calcium carbonate (calcium (as carbonate) 500 mg oral tablet) hydrOXYzine (hydrOXYzine hydrochloride 25 mg Tab) lamotrigine (lamotrigine 200 mg Tab) losartan (losartan 50 mg Tab) multivitamin (Multi Vitamin+) naproxen (naproxen 500 mg Tab) omega-3 polyunsaturated fatty acids (Hiko-3 Fish Oil) ondansetron (ondansetron 4 mg Dis Tab) oxcarbazepine (Trileptal 300 mg Tab) rimegepant (Nurtec ODT 75 mg oral tablet, disintegrating) semaglutide (Wegovy (0.25 mg dose) subcutaneous solution) suvorexant (Belsomra 20 mg oral tablet) Procedures Performed Colonoscopy (08/07/2015), left knee arthroscopy with anterior cruciate ligament reconstruction using bone, patellar tendon, bone allograft (10/06/2014), ACL (anterior cruciate ligament) rupture...., Arthroscopy and biopsy of knee, Injection of nerve root of lumbar spine using fluoroscopic guidance, right great toe surgery, sinus surgery. Discharge Vitals Heart Rate (Peripheral) 78 Blood Pressure 138/80 Height 67 in Height 171 cm Weight 172.7 lb Weight 78.5 kg BMI 26.85 What to do next Scheduled Follow-Up Appointments 2023 10:40 AM EST With: Peter DAVISON, Sara Cueva Where: [facility] [address] [facility] [address] [facility], [place] [address]- You Need to Complete the Following US Abdomen, Limited, 06/14/24, Routine, Order for future visit, Transport Mode: Ambulatory, Reason: Abnormal CT, No, Elevated lipase Nausea Liver cyst, pp_set_radiology_subsp ecialty, [facility] Medications What How Much When Why Instructions Unchanged fluticasone nasal (Flonase 0.05 mg/ inh Orinda) 2 Sprays Nasal Inhalation Every day Left otitis media Fluid level behind tympanic membrane of both ears BMI 30.0-30.9,adult each nostril Pickup at [facility] Unchanged acetaminophen (Tylenol Extra Strength 500 mg oral tablet) 1 Tablets By Mouth Every 6 hours Contact prescribing physician if questions or concerns Unchanged atogepant (Qulipta 60 mg oral tablet) 1 Tablets By Mouth Every day Contact prescribing [...] 50 mg Tab) 1 Tablets By Mouth Every day Contact prescribing [...] or concerns Unchanged omega-3 polyunsaturated fatty acids (Hiko-3 Fish Oil) 1 tab By Mouth Every day Contact prescribing physician if questions or concerns Unchanged ondansetron (ondansetron 4 mg Dis Tab) 1 Tablets By Mouth Every 6 hours as needed for Nausea/Vomiting Contact prescribing physician if questions or concerns Unchanged oxcarbazepine (Trileptal 300 mg Tab) 1 Tablets By Mouth 2 times a day Contact prescribing physician if questions or concerns Unchanged rimegepant (Nurtec ODT 75 mg oral tablet, disintegrating) Contact prescribing physician if questions or concerns Unchanged semaglutide (Wegovy (0.25 mg dose) subcutaneous solution) 0.25 Milligram Subcutaneous Every week Hypertension HLD (hyperlipidemia) BMI 28.0-28.9,adult Overweight Encounter for weight loss counseling Contact prescribing physician if questions or concerns Unchanged suvorexant (Belsomra 20 mg oral tablet) 1 Tablets By Mouth Once a day (at bedtim (more content not included)... 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 Down 2 lbs. 172 .7 lbs today. Patient wants to loose 160 lbs- 150lbs. Patient requesting refill of Flonase. She gets some occasional effusion of the ears. Flonase helps with this. No complaints of fevers or chills no sinus pressure today no hearing changes reported Patient wanted me to look at her right third toe she has yellow discoloration and thickening noted she has been using tea tree oil and noticed new healthy growth coming from the nailbed with no concerns no redness swelling or warmth around the toenail. Review of Systems PHQ Score Initial Depression Screen Score: 0 SCORE Physical Exam Vitals & Measurements HR: 78(Peripheral) BP: 138/80 SpO2: 98% HT: 67 in HT: 171 cm WT: 78.5 kg WT: 172.7 lb BMI: 26.85 General: alert, no acute distress, well appearing, _pleasant, middle-aged female well-appearing Skin: warm, dry, intact, toenails appear clean dry and intact, the third right distal digit with onychomycosis with thickened discoloration, nailbed regrowth at the matrix looks normal Head: no trauma, normocephalic Neck: Trachea midline, no adenopathy, no tenderness Eye: normal conjunctiva, sclera clear, _PERRLA ENMT: TM's clear, with shiny serous fluid present, no injection or purulence present, no sinus tenderness to palpation oral mucosa moist, no pharyngeal erythema or exudate, normal dentition Cardiovascular: regular rate and rhythm, normal peripheral perfusion, no edema Respiratory: Lungs CTA, respirations non labored Chest wall: no deformity, non tender Gastrointestinal: soft, non distended, no tenderness, no guarding. Back: No tenderness, Normal ROM, Normal alignment. Extremities: no deformity, no trauma Neurological: oriented x 4, LOC appropriate for age, CN II-XII intact, motor strength equal & normal bilaterally, sensation equal & normal bilaterally, speech normal Psychiatric: cooperative? , affect appropriate for age? , normal? judgement, normal? psychiatric thoughts. Assessment/Plan 1. Liver cyst (K76.89: Other specified diseases of liver) CT scan reviewed with patient in office, radiology unable to find gallbladder, ultrasound ordered for further investigation of liver cyst and gallbladder/pancreas. Likely benign, continue to monitor Ordered: US Abdomen, Limited 2. Encounter for weight management (Z76.89: Persons encountering health services in other specified circumstances) Patient requesting a refill of semaglutide sent to [facility] locally patient would like to advance to the next dose 0.6 mg weekly. Last dose was last I would like to wait to recheck lipase levels and get the ultrasound before sending the next prescription Strongly encouraged minimizing sweets and salty foods and increasing exercise Follow-up in 1 month 3. Elevated lipase (R74.8: Abnormal levels of other serum enzymes) Recheck lipase ordered, right upper quadrant abdomen ordered Ordered: US Abdomen, Limited 4. Nausea (R11.0: Nausea) Likely side effect from medication, would like to check right upper quadrant ultrasound This is mild and intermittent Ordered: US Abdomen, Limited 5. Overweight (E66.3: Overweight) Reviewed importance of making a lifestyle change regarding dietary choices. Discussed goals. Encouraged routine cardio exercise with Goal: 3-5x/week for 30-45 minutes. Start out slow and increase to achieve your goals. Avoid late night snacking, do not skip breakfast and monitor cooking habits/avoid fast food and fried/fatty foods. Will monitor for progress. 6. Onychomycosis (B35.1: Tinea unguium) Continue to file nail and tea tree oil, may consider further treatment if no resolution after 6 more weeks, mild and only affecting 1 toe at this time No indication for podiatry referral at this time 7. BMI 27.0-27.9,adult (Z68.27: Body mass index [BMI] 27.0-27.9, adult) The standard range for ages 18 and older is >=18.5 and < 25 kg/m2. Your BMI today was above this range, this falls in the overweight to obese category and there are medical benefits to weight loss. We can offer counselling, referral, and/or medical support in addressing this problem. Your BMI and weight management will be followed at subsequent visits. BMI 30.0-30.9,adult (Z68.30: Body mass index [BMI] 30.0-30.9, adult) Ordered: fluticasone nasal, 2 spray(s), Nasal, Daily, 16 gram, Refill(s) 4, each nostril, [facility], 171, cm, 06/14/24 15:03:00 EST, Height/Length Dosing, 78.5, kg, 06/14/24 15:03:00 EST, Weight Dosing Fluid level behind tympanic membrane of both ears (H65.93: Unspecified nonsuppurative otitis media, bilateral) Ordered: fluticasone nasal, 2 spray(s), Nasal, Daily, 16 (more content not included)... Normal [facility] Comment on above: Result Comment: Elec tronically Signed By: Peter DAVISON, Sara Cueva\.lesly\Date and Time Signed: 06/14/24 15:56 EST Ambulatory Visit Summaryon 1 Ambulatory Visit Summary Ambulatory Visit Summary SAVANAH BYERS :1970 Visit Date:05/17/2024 Ambulatory Visit Instructions Your Diagnosis Elevated lipase HLD (hyperlipidemia) Encounter for weight loss counseling Hypertension Adult BMI 26.0-26.9 kg/sq m Overweight Your Care Team Attending Physician - Sara Flood Primary Care Physician - Sara Flood This Is Your Medications List ondansetron (ondansetron 4 mg Dis Tab) Contact prescribing physician if questions or concerns acetaminophen (Tylenol Extra Strength 500 mg oral tablet) atogepant (Qulipta 60 mg oral tablet) baclofen (baclofen 20 mg Tab) busPIRone (busPIRone 10 mg Tab) calcium carbonate (calcium (as carbonate) 500 mg oral tablet) fluticasone nasal (Flonase 0.05 mg/inh Orinda) hydrOXYzine (hydrOXYzine hydrochloride 25 mg Tab) lamotrigine (lamotrigine 200 mg Tab) losartan (losartan 50 mg Tab) multivitamin (Multi Vitamin+) naproxen (naproxen 500 mg Tab) omega-3 polyunsaturated fatty acids (Hiko-3 Fish Oil) oxcarbazepine (Trileptal 300 mg Tab) rimegepant (Nurtec ODT 75 mg oral tablet, disintegrating) semaglutide (Wegovy (0.25 mg dose) subcutaneous solution) suvorexant (Belsomra 20 mg oral tablet) Procedures Performed Colonoscopy (08/07/2015), left knee arthroscopy with anterior cruciate ligament reconstruction using bone, patellar tendon, bone allograft (10/06/2014), ACL (anterior cruciate ligament) rupture...., Arthroscopy and biopsy of knee, Injection of nerve root of lumbar spine using fluoroscopic guidance, right great toe surgery, sinus surgery. Discharge Vitals Temperature (Temporal Artery) 36.7 ?C Heart Rate (Peripheral) 87 Respiratory Rate 18 Blood Pressure 118/64 Height 171.5 cm Height 68 in Weight 79.1 kg Weight 174.02 lb BMI 26.89 What to do next You Need to Complete the Following Comprehensive Metabolic Panel, Blood, Routine collect, 05/17/24, Order for future visit, Lab Collect, HLD (hyperlipidemia), Print Label By Order Location Lipase Level, Blood, Routine collect, 05/17/24, Order for future visit, Lab Collect, Elevated lipase, Print Label By Order Location Lipid Panel, Blood, Routine collect, 05/17/24, Order for future visit, Lab Collect, HLD (hyperlipidemia), Print Label By Order Location Medications What How Much When Why Instructions Unchanged ondansetron (ondansetron 4 mg Dis Tab) 1 Tablets By Mouth Every 6 hours as needed for Nausea/Vomiting Pickup at [facility] Unchanged acetaminophen (Tylenol Extra Strength 500 mg oral tablet) 1 Tablets By Mouth Every 6 hours Contact prescribing physician if questions or concerns Unchanged atogepant (Qulipta 60 mg oral tablet) 1 Tablets By Mouth Every day Contact prescribing [...] Unchanged fluticasone nasal (Flonase 0.05 mg/ inh Orinda) 2 Sprays Nasal Inhalation Every day Left [...] 50 mg Tab) 1 Tablets By Mouth Every day Contact prescribing [...] or concerns Unchanged omega-3 polyunsaturated fatty acids (Hiko-3 Fish Oil) 1 tab By Mouth Every day Contact prescribing physician if questions or concerns Unchanged oxcarbazepine (Trileptal 300 mg Tab) 1 Tablets By Mouth 2 times a day Contact prescribing physician if questions or concerns Unchanged rimegepant (Nurtec ODT 75 mg oral tablet, disintegrating) Contact prescribing physician if questions or concerns Unchanged semaglutide (Wegovy (0.25 mg dose) subcutaneous solution) 0.25 Milligram Subcutaneous Every week Hypertension HLD (hyperlipidemia) BMI 28.0-28.9,adult Overweight Encounter for weight loss counseling Contact prescribing physician if questions or concerns Unchanged suvorexant (Belsomra 20 mg oral tablet) 1 Tablets By Mouth Onc (more content not included)... Normal [facility] Family Medicine Office/Clini c Noteon 05-17-2024 Family Medicine Office/Clinic Note Family Medicine Office/Clinic Note Chief Complaint 1 month follow up-Medication Check HPI Staff Reason for visit: 1 month follow up Last Weight: 184.5 lbs Last BMI: 28.5 Current Weight: 171.1 lbs Last BMI: 26.9 History of Present Illness -I have reviewed and discussed the HPI (staff) with the patient today. -Information was verified and is correct. -Additional information provided if needed. Since last office visit on April 12 patient went to the ED on April 22 with abdominal pain. She was given IV fluid saline rehydration, labs were obtained and showed mild hypokalemia mildly elevated alk phos, lipase was high at 187, troponin was negative, patient had a small amount of blood in the urine test was negative EKG showed sinus rhythm with left atrial enlargement incomplete right bundle she was discharged with a prescription for Zofran, CT scan of the abdomen was performed and was negative for any acute findings she may have eaten a bad jar of jelly and was told to throw that away. She was encouraged to slowly reintroduce liquids and advance food and avoid spicy foods Patient denies a history of pancreatitis, also states she only rarely drinks an occasional white claw I received a call from the patient April 26- patient felt cross/egged dizzy and seeing double show to stay home from work took some Dramamine and Zofran fell asleep and had no additional issues was wondering if this was a side effect of Ozempic-I did not prescribe anything for dizziness as I did not want to cover of any symptoms. There was voicemail left for patient on the and SINCE THEN SHE HAS BEEN FEELING GOOD since then- May 08 patient called in requesting refill of semaglutide- Rx was sent same dosing WEIGHT CHECK - obesity Patient states the cravings are still cheating occasionally- ate a donut- diarrhea PATIENT IS DOWN 10 lbs in December patient weighed 192 lbs occasionally left sided - stomach Patient did not have any issues with GI side effects- but the mental health side effects were very bad- she had to stop GOAL 160- neck pain is much improved. 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 Physical Exam Vitals & Measurements T: 36.7 ?C(Temporal Artery) HR: 87(Peripheral) RR: 18 BP: 118/64 SpO2: 99% HT: 68 in HT: 171.5 cm WT: 79.1 kg WT: 174.02 lb BMI: 26.89 General: alert, no acute distress, well appearing, _pleasant Skin: warm, dry, intact Head: no trauma, normocephalic Neck: Trachea midline, no adenopathy, no tenderness Eye: normal conjunctiva, sclera clear, _PERRLA ENMT: oral mucosa moist, no pharyngeal erythema or exudate, normal dentition Cardiovascular: regular rate and rhythm, normal peripheral perfusion, no edema Respiratory: Lungs CTA, respirations non labored Chest wall: no deformity, non tender Gastrointestinal: soft, non distended, no tenderness, no guarding. Back: No tenderness, Normal ROM, Normal alignment. Extremities: no deformity, no trauma Neurological: oriented x 4, LOC appropriate for age, CN II-XII intact, motor strength equal & normal bilaterally, sensation equal & normal bilaterally, speech normal Psychiatric: cooperative? , affect appropriate for age? , normal? judgement, normal? psychiatric thoughts. Assessment/Plan 1. Elevated lipase (R74.8: Abnormal levels of other serum enzymes) Noted in ER-2 days prior to starting semaglutide I was unaware of this at time of initial appointment with me Patient reports an occasional nausea but no pain on exam, will recheck lipase and CMP Will discuss case with digestive health team for possible referral Follow-up in 3 weeks Ordered: Lipase Level 2. HLD (hyperlipidemia) (E78.5: Hyperlipidemia, unspecified) Recheck lipid panel No current prescribed medications Diet and exercise recommended The importance of the following were all reviewed with the patient: - Recommended following the TLC Lipid Diet which is a low fat/low cholesterol diet for high cholesterol. - More information about this eating plan can be found here: http://tlcdiet.org - To improve your health we recommend increasing your level of moderate exercise to at least 2.5 hrs per week. For more information, please visit the CDC Exercise and Fitness Recommendations at www.cdc.gov/physicalac tivity/basics/index.ht m Foods to help lower cholesterol: 1. Oats. 2. Barley and other whole grains. 3. Beans. 4. Eggplant and okra. 5. Nuts. 6. Vegetable oils. 7. Apples, grapes, strawberries, citrus fruits. 8. Foods fortified with sterols and stanols. 9. Soy. 10. Fatty fish. 11. Fiber supplements. Ordered: Comprehensive Metabolic Panel Lipid Panel 3. Encounter for weight loss counseling (Z71.3: Dietary counseling and surveillance) Semaglutide from [facility] has been prescribed previously at 0.3 mg weekly Continue this until next appointment Patient has lost 10 pounds this month I encouraged vitamin supplementation a (more content not included)... Normal [facility] Comment on above: Result Comment: Elec tronically Signed By: Sara Flood\.br\Date and Time Signed: 05/17/24 15:08 EDT EMS Documentationon 04-27-20 EMS Documentation Report Please click on link to see report Normal [facility] Comment on above: Result Comment: Miss ing [...] ml's: 100 Rectal Contrast Given? No Normal [facility] ED Note-Physicianon 04-23-20 ED Note-Physician ED Note-Physician Basic Information Time Seen: Gayle Escalante PA-C 04/22/2024 18:58 Chief Complaint Pt arrived via [facility] after having an episode of abdominal pain. [...] my recommendation to discard the jar of jelly. I discussed with her we will send her home with a ondansetron ODT in case she has nausea later tonight. I will also send a prescr (more content not included)... Normal [facility] Comment on above: Result Comment: Elec tronically Signed By: Gayle Escalante PA-C\.br\Date and Time Signed: 04/22/24 23:31 EDT\.br\Electronically Co-Signed By: Aron Echevarria DO\.br\Date and Time Co-Signed: 04/23/24 00:00 EDT BMPon 04-22-2024 Anion gap [Moles/Vol] 12 mmol/L Normal 6-16 [facility] Comment on above: Performed By: #### 2 [id number] #### [facility] [address] [place] [address] Calcium [Mass/Vol] 9.9 mg/dL Normal 8.9-11.1 [facility] Comment on above: Performed By: #### 2 [id number] #### [facility] [address] [place] [address] Chloride [Moles/Vol] 103 mmol/L Normal 101-111 [facility] Comment on above: Performed By: #### 2 [id number] #### [facility] [address] [place] [address] CO2 [Moles/Vol] 24 mmol/L Normal 21-31 [facility] Comment on above: Performed By: #### 2 [id number] #### [facility] [address] [place] [address] Creatinine [Mass/Vol] 0.7 mg/dL Normal 0.5-1.3 [facility] Comment on above: Performed By: #### 2 [id number] #### [facility] [address] [place] [address] Glucose [Mass/Vol] 118 mg/dL Normal 55-199 [facility] Comment on above: Performed By: #### 2 [id number] #### [facility] [address] [place] [address] Potassium [Moles/Vol] 3.4 mmol/L Low 3.5-5.3 [facility] Comment on above: Performed By: #### 2 [id number] #### [facility] [address] [place] [address] Sodium [Moles/Vol] 136 mmol/L Normal 135-145 [facility] Comment on above: Performed By: #### 2 [id number] #### [facility] [address] [place] [address] Urea nitrogen [Mass/Vol] 15 mg/dL Normal 5-21 [facility] Comment on above: Performed By: #### 2 [id number] #### [facility] [address] [place] [address] Urea nitrogen/Creatinine [Mass ratio] 21 No Units High 10-20 [facility] Comment on above: Performed By: #### 2 [id number] #### [facility] [address] [place] [address] CBC w/ Auto Diffon 4 Basophils/100 WBC (Bld) 0.4 % Normal 0.0-2.0 [facility] Comment on above: Performed By: #### 2 [id number] #### [facility] [address] [place] [address] Basophils/Leukocytes Auto (Bld) [Pure # fraction] 0.0 E9/L Normal 0.0-0.2 [facility] Comment on above: Performed By: #### 2 [id number] #### [facility] [address] [place] [address] Eosinophils (Bld) [#/Vol] 0.1 E9/L Normal 0.0-0.5 [facility] Comment on above: Performed By: #### 2 [id number] #### [facility] [address] [place] [address] Eosinophils/100 WBC (Bld) 0.8 % Normal 0.0-8.0 [facility] Comment on above: Performed By: #### 2 [id number] #### [facility] [address] [place] [address] Erythrocyte distribution width (RBC) [Ratio] 13.0 % Normal 10.9-14.2 [facility] Comment on above: Performed By: #### 2 [id number] #### [facility] [address] [place] [address] Hematocrit (Bld) [Volume fraction] 37.2 % Normal 34.0-46.0 [facility] Comment on above: Performed By: #### 2 [id number] #### [facility] [address] [place] [address] Hemoglobin (Bld) [Mass/Vol] 13.2 g/dL Normal 12.0-16.0 [facility] Comment on above: Performed By: #### 2 [id number] #### [facility] [address] [place] [address] Lymphocytes (Bld) [#/Vol] 1.6 E9/L Normal 1.0-4.0 [facility] Comment on above: Performed By: #### 2 [id number] #### [facility] [address] [place] [address] Lymphocytes/100 WBC (Bld) 15.8 % Normal 14.0-50.0 [facility] Comment on above: Performed By: #### 2 [id number] #### [facility] [address] [place] [address] MCH (RBC) [Entitic mass] 33.2 pg Normal 27.0-34.0 [facility] Comment on above: Performed By: #### 2 [id number] #### [facility] [address] [place] [address] MCHC (RBC) [Mass/Vol] 35.6 g/dL Normal 31.4-36.0 [facility] Comment on above: Performed By: #### 2 [id number] #### [facility] [address] [place] [address] MCV (RBC) [Entitic vol] 93.3 fL Normal 80.0-100.0 [facility] Comment on above: Performed By: #### 2 [id number] #### [facility] [address] [place] [address] Monocytes (Bld) [#/Vol] 0.8 E9/L Normal 0.2-1.0 [facility] Comment on above: Performed By: #### 2 [id number] #### [facility] [address] [place] [address] Neutrophils (Bld) [#/Vol] 7.5 E9/L Normal 2.0-7.5 [facility] Comment on above: Performed By: #### 2 [id number] #### [facility] [address] [place] [address] Neutrophils/100 WBC (Bld) 74.8 % Normal 36.0-75.0 [facility] Comment on above: Performed By: #### 2 [id number] #### [facility] [address] [place] [address] Platelet mean volume (Bld) [Entitic vol] 7.3 fL Normal 6.4-10.8 [facility] Comment on above: Performed By: #### 2 [id number] #### [facility] [address] [place] [address] Platelets (Bld) [#/Vol] 237.0 E9/L Normal 150.0-500.0 [facility] Comment on above: Performed By: #### 2 [id number] #### [facility] [address] [place] [address] RBC (Bld) [#/Vol] 4.0 E12/L Low 4.3-5.9 [facility] Comment on above: Performed By: #### 2 [id number] #### [facility] [address] [place] [address] WBC corrected for nucl RBC Auto (Bld) [#/Vol] 10.0 E9/L Normal 4.0-11.0 [facility] Comment on above: Performed By: #### 2 [id number] #### [facility] [address] [place] [address] ED Clinical Summaryon 2023 ED Clinical Summary ED Clinical Summary [address] [address] ED Clinical Summary Person Information Name: SAVANAH BYERS [place] Age: 53 Years : 1970 Sex: Female Language: Spanish PCP: Sara Flood Marital Status: Visit Id: [...] 22:57:09 04/22/2024 22:57:09 04/22/2024 22:57:09 ADDRESS: [address] [facility] [id number] PHYS DOC NOTES: MEDICAL INFORMATION: Prescriptions Given: Medications to Continue Taking That Have Changed [facility] [address], [address] [place], [place] [id number], [phone] START: ondansetron (ondansetron 4 mg Dis Tab) [...] every day. fluticasone nasal (Flonase 0.05 mg/inh Orinda) 2 Sprays Nasal Inhalation every day. each [...] .. Refills: 0. omega-3 polyunsaturated fatty acids (Hiko-3 Fish Oil) 1 tab By Mouth every day. oxcarbazepine (Trileptal 300 mg Tab) 1.5 tab(s) Oral Bedtime. rimegepant (Nurtec ODT 75 mg oral tablet, disintegrating) semaglutide (Wegovy (0.25 mg dose) subcutaneous solution) 0.25 Milligram Subcutaneous every week. Refills: 0. suvorexant (Belsomra 20 mg oral tablet) 1 Tablets By Mouth once a day (at bedtime). g47.0. Refills: 1. PATIENT EDUCATION INFORMATION: Instructions: Nausea, Adult, Czba-bo-Tlyl; Abdominal Pain, Adult, Pviv-rv-Cnxc Follow up: With: Address: When: Sara Green [address], [address], [address] [address] Business (1) In 3 days 04/25/2024 DIAGNOSIS: 1:Nausea in adult; 2:Abdominal pain of unknown etiology Normal [facility] ED Patient Summaryon 024 ED Patient Summary ED Patient Summary [address] [address] Patient Discharge Instructions Person Information Name: SAVANAH BYERS Age: 53 Years Arrival Date: 04/22/2024 18:34:34 Discharge Diagnosis: 1:Nausea in adult; 2:Abdominal pain of unknown etiology Primary Care Physician: Sara Flood Provider Information Primary Provider: Aron Echevarria DO [facility] [employer]:None The exam and treatment you received in the Emergency Department were for an urgent problem and are not intended as complete care. It is important that you follow up with a doctor, nurse practitioner, or physician?s social work assistant for ongoing care. If your symptoms become worse or you do not improve as expected and you are unable to reach your usual health care provider, you should return to the Emergency Department. We are available 24 hours a day. SAVANAH BYERS has been given the following list of patient education materials, prescriptions and follow-up instructions: Follow-up Instructions: With: Address: When: Sara Green [address], [address], [address] [address] Business (1) In 3 days 04/25/2024 In the event that this physician does not participate in your insurance network, please consult with your insurance company to find a nearby participating provider. Patient Education Materials: Nausea, Adult, Qnaw-nc-Vgox; Abdominal Pain, Adult, Ytry-yn-Ykih A MESSAGE TO ALL PATIENTS REGARDING OPIOIDS PRESCRIPTION OPIOIDS: WHAT YOU NEED TO KNOW Prescription opioids can be used to help relieve eoupnpeh-tj-fhwmbj pain and are often prescribed following a [...] health care (more content not included)... Normal [facility] Hep Func Panelon 04-22-2024 Albumin [Mass/Vol] 4.7 g/dL Normal 3.3-5.0 [facility] Comment on above: Performed By: #### 2 [id number] #### [facility] [address] [place] [address] Albumin/Globulin (S) [Mass conc ratio] 1.7 Normal 1.1-2.2 [facility] Comment on above: Performed By: #### 2 [id number] #### [facility] [address] [place] [address] ALP [Catalytic activity/Vol] 103 Int._Unit/L High 21-98 [facility] Comment on above: Performed By: #### 2 [id number] #### [facility] [address] [place] [address] ALT No additional P-5'-P [Catalytic activity/Vol] 34 Int._Unit/L Normal 6-46 [facility] Comment on above: Performed By: #### 2 [id number] #### [facility] [address] [place] [address] AST [Catalytic activity/Vol] 38 Int._Unit/L Normal 5-43 [facility] Comment on above: Performed By: #### 2 [id number] #### [facility] [address] [place] [address] Bilirubin [Mass/Vol] 0.5 mg/dL Normal 0.0-1.1 [facility] Comment on above: Performed By: #### 2 [id number] #### [facility] [address] [place] [address] Bilirubin.direct [Mass/Vol] 0.1 mg/dL Normal 0.0-0.4 [facility] Comment on above: Performed By: #### 2 [id number] #### [facility] [address] [place] [address] Bilirubin.indirect [Mass or moles/Vol] 0.4 mg/dL Normal 0.1-0.9 [facility] Comment on above: Performed By: #### 2 [id number] #### [facility] [address] [place] [address] Globulin (S) [Mass/Vol] 2.8 g/dL Normal 1.4-4.0 [facility] Comment on above: Performed By: #### 2 [id number] #### [facility] [address] [place] [address] Protein [Mass/Vol] 7.5 g/dL Normal 6.0-7.8 [facility] Comment on above: Performed By: #### 2 [id number] #### [facility] [address] [place] [address] Lactic Acidon 04-22-2024 Lactic Acid Lvl 1.6 mmol/L Normal 0.5-2.2 [facility] Comment on above: Performed By: #### 2 [id number] #### [facility] [address] [place] [address] Lipase Levelon 04-22-2024 Lipase [Catalytic activity/Vol] 187 U/L High 13-58 [facility] Comment on above: Performed By: #### 2 [id number] #### [facility] [address] [place] [address] PT & PTTon 04-22-2024 aPTT Coag (PPP) [Time] 30.7 second(s) Normal 25.1-36.5 [facility] Comment on above: Result Comment: Para meter 15 days - 4 weeks 1 - 5 months 6 - 11 months 1 - 5 years 6 - 10 years 11 - 17 years PTT Mean: 35.4 (27.6-45.6) Mean: 33.5 (24.8-40.7) Mean: 32.4 (25.1-40.7) Mean: 31.6 (24.0-39.2) Mean: 31.6 (26.9-38.7) Mean: 31.0 (24.6-38.4) Pediatric Reference ranges were obtained from a study by dyana Stewart prepared from 1437 samples obtained at 7 different centers using the same coagulation reagent and instrumentation as [facility] [place]. Currently there are no coagulation studies available worldwide for children to 14 days, and no normal ranges. Heparin therapeutic range (represented by Anti-Factor Xa activity of 0.2 - 0.4 U/mL) corresponds to PTT of 56.6 - 109.0 sec. Performed By: #### 1 [id number] #### [facility] [address] [place] [address] INR Coag (PPP) [Relative time] 0.99 {INR} Invalid Interpretation Code [facility] Comment on above: Result Comment: INR results are specifically intended to assess patients stabilized on long-term Anticoagulation therapy suggested INR?s ?Less Intensive Anticoagulation? 2.0 ? 3.0 Conventional Range 3.0 ? 4.5 Performed By: #### 1 [id number] #### [facility] [address] [place] [address] PT Coag (PPP) [Time] 11.1 second(s) Normal 9.4-12.5 [facility] Comment on above: Result Comment: 15 d ays - 4 weeks 1 - 5 months 6 -11 months 1- 5 years 6-10 years 11 -17 years Mean: 11.2 (9.5-12.6) Mean: 11.0 (9.7-12.8) Mean: 11.0 (9.8-13.0) Mean: 11.3 (9.9-13.4) Mean: 11.7 (10.0-14.6) Mean: 11.8 (10.0 - 14.1) Pediatric Reference ranges were obtained from a study by dyana Stewart prepared from 1437 samples obtained at 7 different centers using the same coagulation reagent and instrumentation as [facility] [place]. Currently there are no coagulation studies available worldwide for children to 14 days, and no normal ranges. Performed By: #### 1 [id number] #### [facility] [address] [place] [address] Pre-Arrival Noteon Pre-Arrival Note Pre-Arrival Note Pre-Arrival Summary Name: manuel Current Date: 04/22/2024 18:35:11 EDT Gender: Female Date of : Age: 53 Pre-Arrival Type: EMS ETA: 04/22/2024 18:56:00 EDT Primary Care Physician: Presenting Problem: Pre-Arrival User: Deneen Dumont RN Referring Source: Location: [place] Completion Date/Time: 04/22/2024 18:26:00 [facility] Emergency Department Pre-Hospital Report Form Vital Signs: Pre-Hospital Report: Treatment in Route: Response to Treatment: Misc. Issues: Normal [facility] Troponin 0 Hr.on 04-22-2024 Troponin HS 2.80 pg/mL Low 10.10-27.10 [facility] Comment on above: Result Comment: The 95% CI (Confidence Interval) PPV (Positive Predictive Value) for myocardial infarction in females is 38 pg/mL, in males 51 pg/mL. The results should be used in conjunction with clinical conditions of myocardial infarction. (Access High Sensitivity Troponin I Instructions For Use, Zoila En, March 2018) Performed By: #### 1 [id number] #### [facility] [address] [place] [address] Troponin 1 Hr.on 04-22-2024 Troponin HS 2.70 pg/mL Low 10.10-27.10 [facility] Comment on above: Order Comment: Due a t 21:00 Result Comment: The 95% CI (Confidence Interval) PPV (Positive Predictive Value) for myocardial infarction in females is 38 pg/mL, in males 51 pg/mL. The results should be used in conjunction with clinical conditions of myocardial infarction. (Access High Sensitivity Troponin I Instructions For Use, Zoila [place], March 2018) Performed By: #### 1 [id number] #### [facility] [address] [place] [address] U BetaHcg Qualon 04-22-2024 HCG.beta subunit (U) [Moles/Vol] Negative Normal [facility] Comment on above: Performed By: #### 2 [id number] #### [facility] [address] [place] [address] UA with Cult Rflxon 04-22-20 24 Bilirubin Ql (U) Negative Normal Negative [facility] Comment on above: Performed By: #### 4 [id number] #### [facility] [address] [place] [address] Clarity (U) Clear Normal Clear [facility] Comment on above: Performed By: #### 4 [id number] #### [facility] [address] [place] [address] Color (U) Light-Yellow Normal Yellow [facility] Comment on above: Result Comment: Micr oscopic readings are only performed on those samples that meet specific criteria set forth by [facility]. Performed By: #### 4 [id number] #### [facility] [address] [place] [address] Epithelial cells.squamous Auto (Urine sed) [#/Area] 0-2 Invalid Interpretation Code [facility] Comment on above: Performed By: #### 4 [id number] #### [facility] [address] [place] [address] Glucose Ql (U) Negative Normal Negative [facility] Comment on above: Performed By: #### 4 [id number] #### [facility] [address] [place] [address] Hemoglobin Auto test strip (U) [Mass/Vol] 2+ mg/dL Abnormal Negative [facility] Comment on above: Performed By: #### 4 [id number] #### [facility] [address] [place] [address] Ketones Auto test strip Ql (U) Negative Normal Negative [facility] Comment on above: Performed By: #### 4 [id number] #### [facility] [address] [place] [address] Leukocyte esterase Auto test strip Ql (U) Negative Normal Negative [facility] Comment on above: Performed By: #### 4 [id number] #### [facility] [address] [place] [address] Mucus Auto Ql (U) Trace Normal Negative [facility] Comment on above: Performed By: #### 4 [id number] #### [facility] [address] [place] [address] Nitrite Auto test strip Ql (U) Negative Normal Negative [facility] Comment on above: Performed By: #### 4 [id number] #### [facility] [address] [place] [address] pH (U) 6.0 [pH] Invalid Interpretation Code 5.0-9.0 [facility] Comment on above: Performed By: #### 4 [id number] #### [facility] [address] [place] [address] Protein Ql (U) Negative Normal Negative [facility] Comment on above: Performed By: #### 4 [id number] #### [facility] [address] [place] [address] RBC Ql (U) 4-20 Abnormal 0-3 [facility] Comment on above: Performed By: #### 4 [id number] #### [facility] [address] [place] [address] Specific gravity (U) [Rel density] 1.014 Invalid Interpretation Code 1.005-1.030 [facility] Comment on above: Performed By: #### 4 [id number] #### [facility] [address] [place] [address] Urobilinogen (U) [Mass/Vol] Negative Normal Negative [facility] Comment on above: Performed By: #### 4 [id number] #### [facility] [address] [place] [address] WBC Auto (Urine sed) [#/Area] 0-5 Normal 0-5 [facility] Comment on above: Performed By: #### 4 [id number] #### [facility] [address] [place] [address] Type of Urine collection method Clean Catch Normal [facility] Comment on above: Performed By: #### 4 [id number] #### [facility] [address] [place] [address] eGFRon 04-22-2024 eGFR 104 mL/min/1.73 m2 Normal >=59 [facility] Comment on above: Order Comment: Order added by Discern Expert. Performed By: #### 1 [id number] #### [facility] [address] [place] [address] Ambulatory Visit Summaryon 0 04-12-2024 Ambulatory Visit [...] oral tablet) fluticasone nasal (Flonase 0.05 mg/inh Orinda) hydrOXYzine (hydrOXYzine hydrochloride 25 mg Tab) lamotrigine (lamotrigine 200 mg Tab) losartan (losartan 50 mg Tab) multivitamin (Multi Vitamin+) naproxen (naproxen 500 mg Tab) omega-3 polyunsaturated fatty acids (Hiko-3 Fish Oil) oxcarbazepine (Trileptal 300 mg Tab) [...] Follow Up with Peter DAVISON, ANGY Mejia, [facility] When: In 1 month Comments: weight loss Where: [address], [address] [address]- Medications What How Much When Why Instructions New ondansetron (Zofran 4 mg Tab) 1 Tablets By Mouth Every 6 hours as needed for Nausea Nausea Pickup at [facility] [address] New semaglutide (Wegovy (0.25 mg dose) subcutaneous solution) 0.25 Milligram Subcutaneous Every week Hypertension HLD (hyperlipidemia) BMI 28.0-28.9,adult Overweight Encounter for weight loss counseling Pickup at [facility] [address] Unchanged acetaminophen (Tylenol Extra Strength 500 [...] Unchanged fluticasone nasal (Flonase 0.05 mg/ inh Orinda) 2 Sprays Nasal Inhalation Every day Left [...] or concerns Unchanged omega-3 polyunsaturated fatty acids (Hiko-3 Fish Oil) 1 tab By Mouth Every [...] physician if questions or concerns Pharmacy Information [facility]: [address] [place], [place] [id number] [phone] What How Much When Why Comments Stop Taking b (more content not included)... Normal [facility] Family Medicine Office/Clini c Noteon 04-12-2024 Family [...] due to work commitments. She typically consumes Kiswahili yogurt and a granola bar, and a [...] for her (more content not included)... Normal [facility] Comment on above: Result Comment: Elec tronically Signed By: Sara Flood\.br\Date and Time Signed: 04/12/24 17:56 EDT\.br\Electronically Co-Signed By: Sole Jung\Date and Time Co-Signed: 04/12/24 13:33 EDT Family [...] any trauma to the area. 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 [...] pain management. She is employed in the [employer] department at [employer], where she is required to lift approximately [...] it to a local compounding pharmacy called [facility]. Hypertension: The patient's blood pressure is elevated [...] sees Geena Hansen PA-C, neurology with Dr. Sparrow. She sees Dr. Sparrow once a year. [...] appearing, _pleasant (more content not included)... Normal [facility] Comment on above: Result Comment: Elec tronically Signed By: Sara Flood\.br\Date and Time Signed: 03/05/24 13:01 EDT\.br\Electronically Co-Signed By: Ruthy Rivers\.br\Date and Time Co-Signed: 03/04/24 08:48 EDT Ambulatory [...] oral tablet) fluticasone nasal (Flonase 0.05 mg/inh Orinda) hydrOXYzine (hydrOXYzine hydrochloride 25 mg Tab) lamotrigine (lamotrigine 200 mg Tab) losartan (losartan 50 mg Tab) multivitamin (Multi Vitamin+) naproxen (naproxen 500 mg Tab) omega-3 polyunsaturated fatty acids (Hiko-3 Fish Oil) oxcarbazepine (Trileptal 300 mg Tab) [...] as directed on package labeling Pickup at [facility] [address] Changed buPROPion (Wellbutrin SR 150 mg Tab-ER) 1 Tablets By Mouth 2 times a day Encounter for weight loss counseling Adult BMI 28.0-28.9 kg/sq m Overweight Pickup at [facility] [address] Unchanged acetaminophen (Tylenol Extra Strength [...] Unchanged fluticasone nasal (Flonase 0.05 mg/ inh Orinda) 2 Sprays Nasal Inhalation Every day Left [...] or concerns Unchanged omega-3 polyunsaturated fatty acids (Hiko-3 Fish Oil) 1 tab By Mouth Every [...] physician if questions or concerns Pharmacy Information [facility]: [address] [place], [place] [id number] [phone] What How Much When Why Comments Stop Taking naltrexone (naltrexone 4.5 mg oral capsule) 2 Capsules By Mouth Every day Encounter for weight loss counseling Allergies penicillins Vicodin (migraines for 2 weeks) Problems Ongoing - Any problem that you are currently receiving treatment for. Allergic reaction to tattoo ink Bipolar I disorder, mi (more content not included)... Normal [facility] Family Medicine Office/Clini c Noteon 02-02-2024 Family [...] her back pain worse. She visits her prsdaq-rc-zkj, who is a therapist, every two weeks. [...] to move (more content not included)... Normal [facility] Comment on above: Result Comment: Elec tronically Signed By: Sara Flood\.br\Date and Time Signed: 02/02/24 13:32 EDT\.br\Electronically Co-Signed By: Ruthy Rivres\.br\Date and Time Co-Signed: 02/01/24 11:25 EDT Ambulatory [...] oral tablet) fluticasone nasal (Flonase 0.05 mg/inh Orinda) hydrOXYzine (hydrOXYzine hydrochloride 25 mg Tab) lamotrigine (lamotrigine 200 mg Tab) losartan (losartan 50 mg Tab) multivitamin (Multi Vitamin+) omega-3 polyunsaturated fatty acids (Hiko-3 Fish Oil) oxcarbazepine (Trileptal 300 mg Tab) [...] as directed on package labeling Pickup at [facility] New naltrexone (naltrexone 4.5 mg oral capsule) 2 Capsules By Mouth Every day Encounter for weight loss counseling Pickup at [facility] [address] Changed buPROPion (Wellbutrin SR 150 mg Tab-ER) 1 Tablets By Mouth Every day Encounter for weight loss counseling Pickup at [facility] [address] Changed naproxen (naproxen 500 mg Tab) 1 Tablets By Mouth 2 times a day Cervical spine pain Overweight Adult BMI 28.0-28.9 kg/sq m take 14 days BID . Pickup at [facility] [address] Unchanged acetaminophen (Tylenol Extra Strength [...] Unchanged fluticasone nasal (Flonase 0.05 mg/ inh Orinda) 2 Sprays Nasal Inhalation Every day Left [...] or concerns Unchanged omega-3 polyunsaturated fatty acids (Hiko-3 Fish Oil) 1 tab By Mouth Every [...] physician if questions or concerns Pharmacy Information [facility]: [address] [place], [place] [phone] Allergies penicillins Vicodin (migraines for 2 weeks) Problems Ongoing - Any problem that you are currently receiving treatment for. Allergic reaction to tattoo ink Bipolar I disorder, mild, c (more content not included)... Normal [facility] Patient Educationon 01-31-20 Patient Education Cardiovascular Hypertension, Adult High blood [...] oz glass (more content not included)... Normal [facility] Coding Summary.on 01-30-2024 Coding Summary. VVFNCfzd11PYb3fCz+PG hl YWQ+QR4CLANkJ81scSJvcO 4qH8QVBIvDOhjqLTNIINfC UbJrmnJeFV7gwVCuMJPz IC8+WW2gEFQeZaougBXnh9 E9fAA4W80rhx6uBAeysCQ8 KSQlAlJwdpsfh7abxNn9YD cuNmluOyBt VOEbbM82VHB1wY04Wv66mU IbfTDjz2aptXl8HrEcWATh RXP1bNjyLWyuo2SpYWApS0 8twYVdm9S9 GPNunDjdqGScEyFcfPB5uO 4fBXoxzwzlz7ymhpclJwz9 kq25hUTih5H0vAH7I3Rdum X4SVJhtUEr MkxojTPVpT7giluio4ikne zaStHtFFCxVVk5YFe0NKNn eObfUdIbWD07DVA2QLHnam FkR7SmXJYs xDekVqG6i4H8Rv2RO7HOJb nvS0BCGLRUXCsfyAP+PC90 re38F4SxFhpyZlp3COGpKC F3qEW3rJ7s YYXsUHrdv5L5yGU3A3Dpei Eqyz9ht3mtEKVmRTneO05b bQAyv0T8EUAdgMJ2IPWirV cvDiIhyO06 Oyc+RLMpkIqib1KrHselj6 jiw5sswEd5ZnoeUDCepjKw xCcaEIM4t3ZxJb1mPIZfaE Y9eMF3xY3j UcKuMpU7YWubC084NfZwxP QlLsdbB76oH9MvvRH+PHRy Xbq7JDRajXgkQK3iF7EuRJ RpbmctbGVm eHowBY4uHMBounbtSFIepH 4oVHRdP1i6RiCrNpW0JHbr K6AfQUPrxvzlEu24kU7cIw LbGjX7NJtk S6FfkyW6JXTtcFOxEHqeFA H1H54gu5G6UFYuSCZhLML6 oUU8eL1mkXiaqegixUZbcT sgdmVydGlj JZzmMMbqF810JNNxqGtaGc NvZGluZyBEYXRlOiAgMDYv MjUvMjAyNDwvdGQ+PHRkIH A5hYjaTPYp sIGgMFglMa8jfWezmXfyWC 3kKBHtlezjWVVngL8oWVSv cVAndDxhZM6lDCAdoegkh2 69UsIjNBO6 JTJprDCgV5XfyF7tIjOlGT DeBLLgU5BzoBDnCKqjH507 CEmbOoG2MQRsfqBeM6RwUA FsaWduOiB0 t2Y8Ff3Kp9GsifvxL7FcnQ PsVhPhFgamGXr3U1YoUart dHI+RN23VSVdOJ13RNa6CV Z6vVzyEAqq VCTiU7PoxN6bWbQdGDErZE RkOyc+PHRhYmxlIHdpZHRo LLywFWFjWcYklEsuZN8eFd 9yZGVyLWNv xQnerEDaUuNyv5luFMMmVO hdUL9msSxiJ2KcjNR1BPMl v1r0Pj54B25mR1NsgPV+PG OwiIW2mWH7 rG7eYjGtGbO8CXcrH363Th UmlFXfPvlzu1nmo0ckeNu7 YhY7YTKzvrJtsCsnPEN2f3 NxLg49I59q IHdpZHRoPSIxNSUiIHZhbG olaz1yzE4wMs8+PGNvbCB3 lWX2cI6iVsUwJkP4CIsqF8 49InRvcCIv Ofhfz3ycq7mptEn6BfLuZK GqmtFvvOnwYDI9l6NvLq92 M2JjoFpqe2FeDxp5nv65tV Kxp0K4tSS9 J0HwEJXdoqkctMVirUhzKG 0sOABrdekpJXEkkT4cKBXn W1f8DeMiYpJ2KXywI9Vvya Q0BLClrFOz JFWipEGEbP7vauncq0anqz oeOfWzKPJjQPe4VMn1ZAGw kBbpRnRzMSQ6BhP7ZGF0sC OmlO6ukMks izntoE7aAsq+MLY8gCZheV UDJV4tAhkcrDK+PHRkIHN0 sMxrJFrsLGWwiF8nUPOtZ5 l6VoMtFvJ9 PKofP2PwehO4CCTdsPPtTR SpzLRYkX0niituf5kflvly PfKgLFLtDFt4TYw9RQHueW duOiBsZWZ0 XjD3WFZ1jBWpeE5zfBkxmz dkvJ7nBsb+QmlydGggRGF0 VQt6J0JtLkz6SRFfzTrpQC 0ncGFkZGlu Rn9rjShwrExpFL6kUCPjpa rba881FnDwd9cvICSiyKNy HAxyYDA9I27kv4S8DHNaRV IuWCX8iGU4 tP4hsUzdkrnxwGEfuIdimn ZzyDkvGLssPQztB716BGBk rCcbBeKxJGs0T0UwRve0JN ImvJqwSF6t kZWsZUfcQx5ipArprFqxMS 8kBTSrdybcc322KjAbh3qi XOAeyUAuXHsaYGD4W10vz0 I9JOCmEGWq OYF9jEQ6pP4msBlpabwjbQ VmdDsgdmVydGljYWwtYWxp N690BKZdfQgwPoBwzIo5L7 JvTzv7RCSm iLxdGJ4ioWNzPIyvXb2vwP fxmJdyMR8uVDTglscmm415 ZrWft8ahOXCuwVDoRBipJK H8R39av5G8 QGWrVSMuWTU5eDN6jH1roR lnbjogbGVmdDsgdmVydGlj ZXgqQUihA152WXRixGfjOd BhdGllbnQg MWbzTCk6A9DlZwssjCX+PC 25HIJlHR45iGSdlUYgi1ia bUz5CgNePBEkVHD6vPfzYP ece7FjBBFw O44adSMox6J1VATteCknyJ MyCrCyzYV1nL2bOAlnlrbt r5exlhxfYcmrx1oewb45eH 19H10tUVyn ZHRoPSIzMCUiIHZhbGlnbj 4keH1rUo5+ORIlnMF9hFN4 bE2pQCIqPhL2JCqcZ244Pi RvcCIvPjxj p0fxy8ghxMi0JjS1JUElee FvrQtoIZO1j2DuAt37B59a IHdpZHRoPSIyMCUiIHZhbG tfcv4niJ9h Ii8+WAWanCS5lVM1mA9tYt VpKtY9NUtiZ001GzDojVLe ZalyV57cO7HvgFC+PHRyPj y0TFXsrUzm PC4cqRFkAHiwQd2kZUQ6Zi UmFlAvHUdnJ7CkUVUkloxn wlasxVK6XCXaIYTeaM25Kc 9udDogMTBw qSRNgW5ycwtco5wdfpkcQz ItSFThHLv1STo2CBVtoYuw PvNyNIL1QjY8MTT9iVLymK 1hbGlnbjog rK8hV8CfYONwybjaQs47wM 2qCaEyEtN6SBudBen+Q0FN UCwgSkVOTklGRVIgQTwvdG Q+PHRkIHN0 zHauBDxhSNBxwT1qQPAxF5 h7GfWvGuM9RVacY8SjZHLf iixsKs70vQ4aHmZpXwG5PC dqD0LzneS6 XAIccQBfBBkyHTD2T41ia1 V4SWOuIHHcLKZ1gWZ9cJ1h bGlnbjogbGVmdDsgdmVydG ljYWwtYWxp Y661YXQouBezMrVpElN5Jx A6MkK5E3QjTtr5BAMauLtr GQ2tjWFiFXllXl7peZihkT rxMJ8lMTKs jhbfKFWhcA7jULBxzESeoQ drGL1xHICxynomq272WlPg HIU0GNVcgXPpO1EorO1fFp AjMDAwMDAw F7JoaFRgYAalJ101NIegVx E1PTPocyFvQ2HfZPLwaEyg UrW7p4S3Vz15ZoYVHRJmca wvdGQ+PHRk HWU0sEsdXFwkWBNleU9lDD OjZ7j0JsDmSmD7SJyrW7Kj YSXrckmfHc85uD2hWfUbHr Z3IVzbS2Kn rjJ4CQTfkHWhXCdfPMD4V5 6sv0X9ICJaNHRnGXP8lIF2 gC5wkHjtvxrrwHZqsAnfbp VydGljYWwt KPujO189LEVugDjlSjUjbR FsZTwvdGQ+EXJmXTU9uUio KZwzYVFhdJ1uGIKqE6f0Vj JaLzF6OEwe O0LlNZVdmsnlZk81wN1eEc DcKtD0CRtrR1NcblY4NNUq tISjLKocIVK7U10ia2E2NY MwMDAwMDA7 sKO1qM7ncPftsxpqzFNlgI trmrRkaTnaFKbfCWejP164 AJMezOorOw39dBNsePtkjk D6C2GxQmxi dHI+GN98HMIhZM60iUKqaE Stn4bygVh9HuRqVBEmKVR4 cNciFYcdk6BpEBHdJ06qsM Cmh7N9HAXn zLqdrJLfVmCjfVU1pO0sVU qdemozz0nfrprwDbugt0oi me28iO07P65vIDbwDOEcUT IzMCUiIHZh vCtunj9pwU2mFw0+PGNvbC Q1dSC7zE8mTlWbSxW8CLku D625XzDwqHLeNtrnn9vou9 bjrTr1VgEo HATqqmHuxYclCPQ1b3RgNu 24T66cICbpRPSvTUWzGWCr LWKlhPdrcx6uyI0fHo0+PC 7hd4ppay71 uX02nQL+XCIcGGM0yYnkHG ztMOWykD9kELxjOhK7UJIy UpFtqN46kSTaJIdqPc0wwD gomEuzMM6w EZVufncgd601DvMzm5hsDR IrnSSpHWonVDF7E69lc3R0 SGZzMVZpCJJ8nYR1kE2deD lnbjogbGVm dDsgdmVydGljYWwtYWxpZ2 10USCpwPxpQtMumBFhD8iw gxUCOE7fXuoxaNM+PHRkIH E2xBoeSGyo WWOxyD3xCORmA4t3JrMrKm W1KNquX8TmktB2WIScmQJb MHIeqGBPsA3uwqauu3uxan ogIzAwMDAw QZw6MUz5UFIxkHgfVnZiMM U8BuO2OOC4eHWgtK0mqEaj fusqzN9kYgy+RklOOjwvdG Q+PHRkIHN0 uYaeOCnvQQSefE7dIPIlB3 f9FbErJhC9JFhvT2YapgP9 YQBlsSWoEWEcoFRTvH0mav abv2dwjmlb RiNfSRHaVYg9WEz3DYXeaY krElBzMTY6SoO8MZB3rMDh pF9ydScvibaodN9qHjg+TV JOOjwvdGQ+ UWEpIRD2xUucMBzzUXYhrS 0bXVXqN7w3McMeTkZ9ZBlt F5NbfaU5HAWsrBGoJXDuqK IPmS9hhjmb y1dsmiiiWlBoDOVtLDn5RY i8IUZlvMhhNpGjIRR7IcW6 XOK5aKHjjS0abSftpmnprU 9wOyc+UGF5 ZJC6HR61BO29B5AvPwrcoY FibGU+PHRhYmxlIHdpZHRo ZWvhRLViKbVsaUdvQI1bNn 9yZGVyLWNv bGxhcHNlOiBjb (more content not included)... Normal [facility] [place] Mamm Screen w/CAD if perf and [...] VERY IMPORTANT TO YOUR HEALTH. THE CURRENT [employer] [...] Ji Saunders MD Transcribed by: NOREEN Technologist: [facility] Assessment: BI-RADS Category 1-Negative Recommendation: Normal interval follow-up Normal [facility] Consent for Treatmenton 01-05 Consent for Treatment [id number] 4060 [id number]#1.0 0TIFF Normal [facility] CBC w/ Auto Diffon Basophil Absolute 0.0 E9/L Normal 0.0-0.2 [facility] Comment on above: Performed By: #### 2 734381, 76461697, 0723970, 5260939, 8308134, 184253222, 597336386, 0917773 ####[facility] [address] [place] [address] Basophils/100 WBC (Bld) 0.8 % Normal 0.0-2.0 [facility] Comment on above: Performed By: #### 2 167791, 49715148, 1889845, 4059339, 9060397, 156268477, 257132022, 2095295 ####[facility] [address] [place] [address] Eos Absolute 0.2 E9/L Normal 0.0-0.5 [facility] Comment on above: Performed By: #### 2 822221, 83698526, 9641683, 1595592, 1742733, 053194298, 115254208, 0676690 ####[facility] [address] [place] [address] Eosinophils/100 WBC (Bld) 3.7 % Normal 0.0-8.0 [facility] Comment on above: Performed By: #### 2 047116, 94554684, 5550295, 8821079, 0133919, 844953393, 647984250, 2196572 ####[address] [place] [address] Erythrocyte distribution width (RBC) [Ratio] 13.8 % Normal 10.9-14.2 [facility] Comment on above: Performed By: #### 2 572787, 02982418, 4274650, 1374672, 5900278, 178423101, 425570570, 9143793 ####[address] [address] Hematocrit (Bld) [Volume fraction] 39.0 % Normal 34.0-46.0 [facility] Comment on above: Performed By: #### 2 069291, 58613171, 6261540, 4390535, 4625248, 494176079, 667773765, 8500629 ####[address] [place] [address] Hemoglobin (Bld) [Mass/Vol] 13.2 g/dL Normal 12.0-16.0 [facility] Comment on above: Performed By: #### 2 324342, 65018178, 1541505, 3293721, 0935914, 279888315, 825874527, 7431603 ####[address] [place] [address] Lymph Absolute 2.5 E9/L Normal 1.0-4.0 [facility] Comment on above: Performed By: #### 2 506395, 14715850, 2415324, 0442758, 2437966, 532480230, 883903406, 5658746 ####[facility] [address] [place] [address] Lymphocytes/100 WBC (Bld) 43.2 % Normal 14.0-50.0 [facility] Comment on above: Performed By: #### 2 146779, 39006095, 2376142, 2426590, 7568811, 832850887, 664361743, 4383699 ####[address] [place] [address] MCH (RBC) [Entitic mass] 31.5 pg Normal 27.0-34.0 [facility] Comment on above: Performed By: #### 2 014039, 22300115, 3682574, 7183457, 5829208, 864576042, 465784550, 2731922 ####[address] [address] MCHC (RBC) [Mass/Vol] 33.5 g/dL Normal 31.4-36.0 [facility] Comment on above: Performed By: #### 2 840599, 07637652, 4378333, 1358276, 6786704, 180775746, 058439848, 1279102 ####[address] [address] MCV (RBC) [Entitic vol] 94.0 fL Normal 80.0-100.0 [facility] Comment on above: Performed By: #### 2 270760, 02135187, 8027275, 0996620, 7861922, 596549577, 256427542, 3329966 ####[address] [place] [address] Benson Absolute 0.5 E9/L Normal 0.2-1.0 [facility] Comment on above: Performed By: #### 2 919827, 98509587, 2630648, 1481764, 8991248, 599032541, 427522302, 3626994 ####[address] [address] Monocytes/100 WBC (Bld) 8.0 % Normal 4.0-14.0 [facility] Comment on above: Performed By: #### 2 995563, 84222344, 7796014, 8788698, 9646384, 491144345, 137732128, 5519946 ####[facility] [address] [place] [address] Neutro Absolute 2.6 E9/L Normal 2.0-7.5 [facility] Comment on above: Performed By: #### 2 646941, 51535780, 1009173, 2750223, 9865187, 349808379, 010667837, 8993847 ####[facility] [address] [place] [address] Neutro Auto 44.3 % Normal 36.0-75.0 [facility] Comment on above: Performed By: #### 2 197567, 22056177, 0386837, 1314222, 0440860, 713177327, 995809492, 0217474 ####[facility] [address] [place] [address] Platelet 305.0 E9/L Normal 150.0-500.0 [facility] Comment on above: Performed By: #### 2 202245, 66449321, 8245126, 3857811, 3833841, 736875876, 780138231, 2288718 ####[facility] [address] [place] [address] Platelet mean volume (Bld) [Entitic vol] 7.3 fL Normal 6.4-10.8 [facility] Comment on above: Performed By: #### 2 359002, 70895810, 0846284, 7656555, 5015300, 902163702, 653137668, 2565832 ####[facility] [address] [place] [address] RBC 4.2 E12/L Low 4.3-5.9 [facility] Comment on above: Performed By: #### 2 194511, 78799879, 1741522, 6119410, 9443699, 054023298, 196862631, 5827416 ####[facility] [address] [place] [address] WBC 5.8 E9/L Normal 4.0-11.0 [facility] Comment on above: Performed By: #### 2 713347, 69077375, 4753631, 1732031, 8970171, 013485064, 339824566, 9447729 ####[facility] [address] [place] [address] CHEMISTRYOrdered By: SYSTEM SYSTEM on 09-28-2023 Albumin [...] (Bld) [Mass fraction] 5.5 % Normal <=5.9% [facility] [place] ChemAutoSS CMPon 09-28-2023 Albumin [Mass/Vol] 4.6 g/dL Normal 3.3-5.0 [facility] Comment on above: Performed By: #### 2 299029, 64205239, 6875635, 3414539, 5197595, 591902199, 435393308, 7809675 ####[facility] [address] [place] [address] Albumin/Globulin [Mass ratio] 1.6 {ratio} Normal 1.1-2.2 [facility] Comment on above: Performed By: #### 2 202023, 17748619, 9708778, 8389613, 4770734, 908116165, 443895610, 2363993 ####[facility] [address] [place] [address] Alk Phos 96 Int._Unit/L Normal 21-98 [facility] Comment on above: Performed By: #### 2 799864, 74493384, 0078355, 5896580, 9555856, 312372083, 658325587, 6190861 ####[facility] [address] [place] [address] ALT 29 Int._Unit/L Normal 6-46 [facility] Comment on above: Performed By: #### 2 591902, 55295430, 6878402, 3086328, 6921079, 415061231, 683191136, 5734708 ####[address] [address] Anion gap [Moles/Vol] 11 mmol/L Normal 6-16 [facility] Comment on above: Performed By: #### 2 147826, 61412615, 0661788, 3416020, 7019143, 111998187, 836303834, 8895137 ####[address] [place] [address] AST 29 Int._Unit/L Normal 5-43 [facility] Comment on above: Performed By: #### 2 804957, 61977493, 1491385, 0437358, 5381223, 096220019, 662734101, 8442068 ####[facility] [address] [place] [address] Bili Total 0.6 mg/dL Normal 0.0-1.1 [facility] Comment on above: Performed By: #### 2 002779, 90930136, 8250466, 0417000, 6777145, 527888375, 979137411, 3126782 ####[facility] [address] [place] [address] BUN/Creat Ratio 18 No Units Normal 10-20 [facility] Comment on above: Performed By: #### 2 635765, 45964845, 1173528, 5677490, 2262760, 504053900, 351878920, 5191311 ####[facility] [address] [place] [address] Calcium [Mass/Vol] 10.6 mg/dL Normal 8.9-11.1 [facility] Comment on above: Performed By: #### 2 079379, 36522462, 5034665, 5972891, 8455779, 526397297, 244264047, 1307337 ####[facility] [address] [place] [address] Chloride [Moles/Vol] 105 mmol/L Normal 101-111 [facility] Comment on above: Performed By: #### 2 945288, 44274012, 6600654, 0914914, 9617659, 788869986, 271160708, 2647505 ####[facility] [address] [place] [address] CO2 [Moles/Vol] 30 mmol/L Normal 21-31 [facility] Comment on above: Performed By: #### 2 768747, 80489108, 3334689, 4043993, 9084988, 226475264, 211906399, 4151657 ####[facility] [address] [place] [address] Creatinine [Mass/Vol] 0.9 mg/dL Normal 0.5-1.3 [facility] Comment on above: Performed By: #### 2 305203, 04251016, 5594188, 6477349, 6737173, 951889424, 459381095, 4471361 ####[facility] [address] [place] [address] Globulin (S) [Mass/Vol] 2.8 g/dL Normal 1.4-4.0 [facility] Comment on above: Performed By: #### 2 982118, 40647915, 2942400, 7352692, 4376683, 317942082, 428852120, 0661643 ####[facility] [address] [place] [address] Glucose [Mass/Vol] 91 mg/dL Normal 55-199 [facility] Comment on above: Performed By: #### 2 249897, 44699545, 2302342, 2766112, 3451601, 627426646, 556954451, 7886855 ####[facility] [address] [place] [address] Potassium [Moles/Vol] 4.5 mmol/L Normal 3.5-5.3 [facility] Comment on above: Performed By: #### 2 874029, 97670585, 6967546, 1795569, 4138299, 079331141, 816791771, 6116692 ####[facility] [address] [place] [address] Protein [Mass/Vol] 7.4 g/dL Normal 6.0-7.8 [facility] Comment on above: Performed By: #### 2 189451, 37263848, 7156812, 0017573, 6070910, 561026917, 594529018, 0562122 ####[facility] [address] [place] [address] Sodium [Moles/Vol] 141 mmol/L Normal 135-145 [facility] Comment on above: Performed By: #### 2 349809, 84260850, 8979782, 3848161, 5483230, 251158842, 390056581, 8463639 ####[facility] [address] [place] [address] Urea nitrogen [Mass/Vol] 16 mg/dL Normal 5-21 [facility] Comment on above: Performed By: #### 2 863317, 32600314, 0748719, 2548453, 4082114, 680239339, 599289009, 7573981 ####[facility] [address] [place] [address] Consent for Treatmenton 09-08 Consent for Treatment [id number] 4020 [id number] 0TIFF Normal [facility] Free T4on 09-28-2023 Free T4 [Mass/Vol] 0.48 ng/dL Low 0.58-1.64 [facility] Comment on above: Performed By: #### 2 610206, 28241285, 3708904, 5233347, 8802054, 870282010, 502676802, 7747918 ####[facility] [address] [place] [address] HEMATOLOGYOrdered By: SYSTEM SYSTEM on 09-28-2023 Basophil [...] Normal 80.0 - 100.0 fL Remisol Heme Benson Absolute 0.5 E9/L Normal 0.2 - 1.0 [...] Normal 4.0 - 11.0 E9/L Remisol Heme KvzZ2vru 09-28-2023 HbA1c (Bld) [Mass fraction] 5.5 % Normal <=5.9 [facility] Comment on above: Performed By: #### 2 056755, 34615032, 3325078, 0205612, 3255679, 958082772, 877852792, 0726505 ####[facility] [address] [place] [address] Lipid Panelon 09-28-2023 Cholesterol [Mass/Vol] 238 mg/dL High 120-200 [facility] Comment on above: Performed By: #### 2 460227, 86061041, 1530496, 1925169, 2632556, 085726913, 449834299, 8128295 ####[facility] [address] [place] [address] Cholesterol in HDL [Mass/Vol] 53 mg/dL Invalid Interpretation Code [facility] Comment on above: Result Comment: '>= 60 LOW RISK' '<= 40 HIGH RISK' Performed By: #### 2 626814, 36329656, 8331151, 4901383, 2062013, 687778175, 037331163, 0101032 ####[facility] [address] [place] [address] Cholesterol in LDL [Mass/Vol] 158 mg/dL High <=129 [facility] Comment on above: Performed By: #### 2 008516, 92593029, 1699934, 8560344, 5052736, 906160026, 854268102, 1356480 ####[facility] [address] [place] [address] Cholesterol in VLDL [Mass/Vol] 29 mg/dL Normal 7-40 [facility] Comment on above: Performed By: #### 2 622579, 79909393, 3918003, 3907430, 4550418, 883064702, 162098977, 1913634 ####[facility] [address] [place] [address] Triglyceride [Mass/Vol] 143 mg/dL Normal <=149 [facility] Comment on above: Performed By: #### 2 591897, 73289732, 6618508, 7855791, 4274777, 015619420, 485192000, 2957095 ####[facility] [address] [place] [address] TSHon 09-28-2023 TSH Qn 1.43 m[IU]/L Normal 0.34-5.60 [facility] Comment on above: Performed By: #### 2 160244, 55144304, 2945793, 3070954, 1752416, 922827899, 376671329, 3414778 ####[facility] [address] [place] [address] Vitamin D 25 Hydroxyon 09-28 Vitamin D 25 Hydroxy 52.5 ng/mL Normal 30.0-100.0 [facility] Comment on above: Performed By: #### 2 013450, 53644239, 7335545, 1694518, 1275492, 494850132, 929971667, 8356090 ####[facility] [address] [place] [address] eGFRon 09-28-2023 eGFR 77 mL/min/1.73 m2 Normal >=59 [facility] Comment on above: Order Comment: Order added by Discern Expert. Performed By: #### 2 921961, 24899819, 1184601, 0880249, 7645659, 049672797, 185759378, 2335088 ####[facility] [address] [place] [address] XR Foot - left 3 [facility] Result: 09-12-2023: Left foot x-rays, weightbearing AP/MO/LAT views, obtained today shows: no visible sign of any pathology on all three views left 2nd toe: No fracture, stress fracture, periosteal reaction, gas, foreign body, infection, arthritis, tumor, impaction or cartilage damage special attention also given to the 2nd MPJ and surrounding anatomy. [facility] Radiology Study observation (narrative) [facility] Family Medicine Office/Clini c Noteon 09-06-2023 [...] nasal sprays when needed I did encourage Valentine pot use or saline rinsing which she [...] recognition qiana (more content not included)... Normal [facility] Comment on above: Result Comment: Elec tronically Signed By: Sara Flood\.lesly\Date and Time Signed: 09/06/23 10:59 EST Ambulatory Visit Summaryon 0 08-31-2023 Ambulatory Visit Summary SAVANAH BYERS :1970 Visit Date:08/31/2023 Ambulatory Visit Instructions Your Diagnosis BMI 29.0-29.9,adult Bronchitis Eustachian tube disorder Allergic reaction to tattoo ink Your Care Team Attending Physician - Sara Flood Primary Care Physician - Sara lFood This Is Your Medications List acetaminophen (Tylenol Extra Strength 500 mg oral tablet) baclofen (baclofen 20 mg Tab) benzonatate (benzonatate 200 mg oral capsule) betamethasone topical (betamethasone Top valerate 0.1% Oint) buPROPion (Wellbutrin SR 150 mg Tab-ER) busPIRone (busPIRone 10 mg Tab) fluticasone nasal (Flonase 0.05 mg/inh [place]) hydrOXYzine (hydrOXYzine hydrochloride 25 mg Tab) lamotrigine [...] 11:00 AM EDT With: Sara Flood Where: [facility] Normal [facility] Patient Educationon 08-31-19 Patient Education ENT Eustachian [...] ears completely after. General instructions ? Take bwhe-tfw-ynoxcen and prescription medicines only as told by [...] treated w (more content not included)... Normal [facility] Provider Letteron 08-29-2023 Provider Letter August 29, 2023 SAVANAH [address]ERS [address] [place] [address] : 1970 Dear Savanah Byers , We [...] your prompt attention to this matter. Sincerely, [facility] [address] [place] [address], [place] [address] Normal [facility] Family Medicine Office/Clini c Noteon 08-23-2023 Family [...] its use due to persistent burning since Cam 08/14/2023. She prepared homemade pretzels, ensuring hand hygiene [...] Obesity ( (more content not included)... Normal [facility] Comment on above: Result Comment: Elec tronically [...] you may need to see an occupational health physician. How is this treated? This condition [...] and dyes. Medicines ? Take or apply glqe-kdg-smmmuew and prescription medicines only as told by [...] and water are not available, use hand flosser. General instructions ? Avoid the substance that [...] away if: (more content not included)... Normal [facility] Family Medicine Office/Clini c Noteon 08-02-2023 Family Medicine Office/Clinic Note Chief Complaint [...] (21-64yo): Due, Greater than 2 years. 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 She reports difficulty controlling her cravings. She has migraines worse this time of the year due to weather fluctuations. She normally does not have migraines; however, when she c (more content not included)... Normal [facility] Comment on above: Result Comment: Elec tronically Signed By: Sara Flood\.br\Date and Time Signed: 08/02/23 17:51 EST\.br\Electronically Co-Signed [...] oz glass (more content not included)... Normal [facility] Consent for Treatmenton 07-07 Consent for Treatment [id number]#1.0 0TIFF Normal [facility] MRI Spine Lumbar w/o Contras ton 07-21-2023 [...] NOREEN Technologist: COURT Technical Comments None Normal [facility] RAD - MRI Screening Formon 1 09-21-2022 RAD - MRI Screening Form [id number]#1. 00TIFF Normal [facility] Physician Orderon 07-18-2023 Physician Order [id number]#1.0 0TIFF Normal [facility] CHEMISTRYOrdered By: SYSTEM SYSTEM on 01-17-2023 TSH Qn 0.40 m[IU]/L Normal 0.34 - 5.60 mcIU/mL [facility] [place] Remisol Provider Orderson 08-02-2018 Protein mass conc [id number]#1.00 [facility] Vital Sign Value Performing Clinician Facility 06-14-2024 15:32-0500 Diastolic blood pressure 80 mm[Hg] Sara Green [facility] 06-14-2024 15:32-0500 Mean blood pressure 99 mm[Hg] Sara Green [facility] 06-14-2024 15:32-0500 Systolic blood pressure 138 mm[Hg] Sara Green [facility] 06-14-2024 14:58-0500 Blood Pressure Location Sara Green [facility] 06-14-2024 14:58-0500 Diastolic blood pressure 80 mm[Hg] Sara Green [facility] 06-14-2024 14:58-0500 Heart rate 78 /min Sara Green [facility] 06-14-2024 14:58-0500 SaO2% (BldA) [Mass fraction] 98 % Sara Green [facility] 06-14-2024 14:58-0500 Systolic blood pressure 140 mm[Hg] Sara Green [facility] 05-17-2024 14:07-0400 Blood Pressure Location Sara Green [facility] 05-17-2024 14:07-0400 Body temperature 98.06 [degF] Sara Green [facility] 05-17-2024 14:07-0400 Diastolic blood pressure 64 mm[Hg] Sara Green [facility] 05-17-2024 14:07-0400 Heart rate 87 /min Sara Green [facility] 05-17-2024 14:07-0400 Respiratory rate 18 /min Sara Green [facility] 05-17-2024 14:07-0400 SaO2% (BldA) [Mass fraction] 99 % Sara Green [facility] 05-17-2024 14:07-0400 Systolic blood pressure 118 mm[Hg] Sara Green [facility] 04-12-2024 10:52-0400 Blood Pressure Location Sara Green [facility] 04-12-2024 10:52-0400 Diastolic blood pressure 86 mm[Hg] Sara Green [facility] 04-12-2024 10:52-0400 Heart rate 75 /min Sara Green [facility] 04-12-2024 10:52-0400 SaO2% (BldA) [Mass fraction] 98 % Sara Green [facility] 04-12-2024 10:52-0400 Systolic blood pressure 138 mm[Hg] Sara Green [facility] 03-01-2024 14:52-0400 Blood Pressure Location Sara Green [facility] 03-01-2024 14:52-0400 Body temperature 98.42 [degF] Sara Green [facility] 03-01-2024 14:52-0400 Diastolic blood pressure 80 mm[Hg] Sara Green [facility] 03-01-2024 14:52-0400 Heart rate 65 /min Sara Green [facility] 03-01-2024 14:52-0400 Respiratory rate 18 /min Sara Green [facility] 03-01-2024 14:52-0400 SaO2% (BldA) [Mass fraction] 99 % Sara Green [facility] 03-01-2024 14:52-0400 Systolic blood pressure 140 mm[Hg] Sara Green [facility] 01-31-2024 11:07-0400 Blood Pressure Location Sara Green [facility] 01-31-2024 11:07-0400 Body temperature 98.24 [degF] Sara Green [facility] 01-31-2024 11:07-0400 Diastolic blood pressure 90 mm[Hg] Sara Green [facility] 01-31-2024 11:07-0400 Heart rate 70 /min Sara Green [facility] 01-31-2024 11:07-0400 Respiratory rate 18 /min Sara Green [facility] 01-31-2024 11:07-0400 SaO2% (BldA) [Mass fraction] 99 % Sara Green [facility] 01-31-2024 11:07-0400 Systolic blood pressure 140 mm[Hg] Sara Green [facility] 09-12-2023 14:44-0500 Body temperature 98.2 [degF] Miguel Cai DPM Work Phone: [facility] 09-12-2023 14:44-0500 Diastolic blood pressure 88 mm[Hg] Miguel Cai DPM Work Phone: [facility] 09-12-2023 14:44-0500 Heart rate 78 /min Miguel Alonsobitbrooklyn DPM Work Phone: [facility] 09-12-2023 14:44-0500 Systolic blood pressure 144 mm[Hg] Miguel Cai DPM Work Phone: [facility] 08-17-2023 12:55-0500 Blood Pressure Location Sara Green [facility] 08-17-2023 12:55-0500 Body temperature 98.06 [degF] Sara Green [facility] 08-17-2023 12:55-0500 Diastolic blood pressure 100 mm[Hg] Sara Green [facility] 08-17-2023 12:55-0500 Heart rate 88 /min Sara Green [facility] 08-17-2023 12:55-0500 Respiratory rate 18 /min Sara Green [facility] 08-17-2023 12:55-0500 SaO2% (BldA) [Mass fraction] 97 % Sara Green [facility] 08-17-2023 12:55-0500 Systolic blood pressure 142 mm[Hg] Sara Green [facility] 08-02-2023 10:40-0500 Diastolic blood pressure 88 mm[Hg] Sara Green [facility] 08-02-2023 10:40-0500 Mean blood pressure 102 mm[Hg] Sara Green [facility] 08-02-2023 10:40-0500 Systolic blood pressure 130 mm[Hg] Sara Green [facility] 08-02-2023 10:22-0500 Blood Pressure Location Sara Green [facility] 08-02-2023 10:22-0500 Diastolic blood pressure 98 mm[Hg] Sara Green [facility] 08-02-2023 10:22-0500 Heart rate 78 /min Sraa Green [facility] 08-02-2023 10:22-0500 Respiratory rate 18 /min Sara Green [facility] 08-02-2023 10:22-0500 SaO2% (BldA) [Mass fraction] 98 % Sara Green [facility] 08-02-2023 10:22-0500 Systolic blood pressure 138 mm[Hg] Sara Green [facility] 10-12-2022 11:09-0500 Blood Pressure Location Randa Gudimella [facility] 10-12-2022 11:09-0500 Diastolic blood pressure 70 mm[Hg] Randa Gudimella [facility] 10-12-2022 11:09-0500 Heart rate 90 /min Randa Gudimella [facility] 10-12-2022 11:09-0500 SaO2% (BldA) [Mass fraction] 99 % Randa [facility] [facility] 10-12-2022 11:09-0500 Systolic blood pressure 126 mm[Hg] Randa Gudimella [facility] 06-08-2022 11:53-0400 Blood Pressure Location Mack Monson [facility] 06-08-2022 11:53-0400 Diastolic blood pressure 80 mm[Hg] Mack Monson [facility] 06-08-2022 11:53-0400 Heart rate 66 /min Mack Monson [facility] 06-08-2022 11:53-0400 SaO2% (BldA) [Mass fraction] 97 % Mack Monson [facility] 06-08-2022 11:53-0400 Systolic blood pressure 128 mm[Hg] Mack Monson [facility] 05-17-2022 16:42-0400 Blood Pressure Location Randa Gudimella [facility] 05-17-2022 16:42-0400 Body temperature 98.42 [degF] Randa Gudimella [facility] 05-17-2022 16:42-0400 Diastolic blood pressure 84 mm[Hg] Randa Gudimella [facility] 05-17-2022 16:42-0400 Heart rate 74 /min Randa Gudimella [facility] 05-17-2022 16:42-0400 SaO2% (BldA) [Mass fraction] 98 % Randa Gudimella [facility] 05-17-2022 16:42-0400 Systolic blood pressure 132 mm[Hg] Randa Gudimella [facility] 03-23-2022 10:32-0400 Blood Pressure Location Randa Gudimella [facility] 03-23-2022 10:32-0400 Diastolic blood pressure 76 mm[Hg] Randa Gudimella [facility] 03-23-2022 10:32-0400 Heart rate 72 /min Randa Gudimella [facility] 03-23-2022 10:32-0400 SaO2% (BldA) [Mass fraction] 98 % Randa Gudimella [facility] 03-23-2022 10:32-0400 Systolic blood pressure 124 mm[Hg] Randa Gudimella [facility] 12-23-2021 16:42-0400 Blood Pressure Location Monet Vázquez [facility] 12-23-2021 16:42-0400 Body temperature 97.88 [degF] Monet Vázquez [facility] 12-23-2021 16:42-0400 Diastolic blood pressure 76 mm[Hg] Monet Mcnairell [facility] 12-23-2021 16:42-0400 Heart rate 87 /min Monet Vázquez [facility] 12-23-2021 16:42-0400 SaO2% (BldA) [Mass fraction] 98 % Monet Vázquez [facility] 12-23-2021 16:42-0400 Systolic blood pressure 122 mm[Hg] Monet Vázquez [facility] 11-01-2021 15:11-0400 Blood Pressure Location [facility] 11-01-2021 15:11-0400 Diastolic blood pressure 66 mm[Hg] [facility] 11-01-2021 15:11-0400 Heart rate 78 /min [facility] 11-01-2021 15:11-0400 Respiratory rate 16 /min [facility] 11-01-2021 15:11-0400 SaO2% (BldA) [Mass fraction] 99 % [facility] 11-01-2021 15:11-0400 Systolic blood pressure 120 mm[Hg] [facility] 08-21-2020 11:21-0500 BMI (Body Mass Index) 25.85 kg/m2 [facility] 08-21-2020 11:21-0500 Body weight 77.11 kg [facility] 08-21-2020 11:21-0500 Height 172.7 cm [facility] 08-21-2020 11:21-0500 Respiratory Rate 16 /min [facility] 10-06-2014 11:52-0500 Diastolic blood pressure 76 mm[Hg] [facility] 10-06-2014 11:52-0500 Heart rate 63 /min [facility] 10-06-2014 11:52-0500 Mean blood pressure 89 mm[Hg] [facility] 10-06-2014 11:52-0500 SaO2% (BldA) [Mass fraction] 97 % [facility] 10-06-2014 11:52-0500 Systolic blood pressure 115 mm[Hg] [facility] Encounters Encounter Date Encounter Type Care Provider Facility Start: 07-18-2024 ambulatory Sara Green [facility] ity:[facility] Start: 06-19-2024 End: 06-19-2024 ambulatory Sara Green Facility:[facility] [place] Start: 06-19-2024 End: 06-19-2024 Patient encounter procedure Sara Green [facility] Start: 06-17-2024 End: 06-17-2024 ambulatory Sara Green Facility:[facility] [place] Start: 06-17-2024 End: 06-17-2024 Patient encounter procedure Sara Green [facility] Start: 06-14-2024 End: 06-14-2024 ambulatory Sara Green Facility:[facility] Start: 06-14-2024 End: 06-14-2024 Patient encounter procedure Sara Green [facility] Start: 05-17-2024 End: 05-17-2024 ambulatory Sara Green Facility:[facility] Start: 05-17-2024 End: 05-17-2024 Patient encounter procedure Sara Green [facility] Start: 04-23-2024 End: 04-23-2024 ambulatory GEENA HANSEN Not Available Start: 04-22-2024 End: 04-22-2024 Emergency department patient visit Alex Pena Facility:[facility] [place] Start: 04-12-2024 End: 04-12-2024 ambulatory Sara Green Facility:[facility] Start: 04-12-2024 End: 04-12-2024 Patient encounter procedure Sara Green [facility] Start: 04-11-2024 ambulatory Sara Green Facil ity:[facility] Start: 03-12-2024 End: 03-26-2024 Pre-admission assessment Sara Green [facility] Start: 03-01-2024 End: 03-01-2024 ambulatory Sara Green Facility:[facility] Start: 03-01-2024 End: 03-01-2024 Patient encounter procedure Sara Green [facility] Start: 01-31-2024 End: 01-31-2024 ambulatory Sara Green Facility:[facility] Start: 01-31-2024 End: 01-31-2024 Patient encounter procedure Sara Green [facility] Start: 01-19-2024 End: 01-19-2024 ambulatory Sara Green Facility:[facility] [place] Start: 01-19-2024 End: 01-19-2024 Patient encounter procedure Sara Green [facility] Start: 12-26-2023 End: 12-26-2023 ambulatory GEENA HANSEN Not Available Start: 09-29-2023 ambulatory Sara Green [facility] Start: 09-28-2023 End: 09-28-2023 ambulatory Sara Green Facility:[facility] [place] Start: 09-28-2023 End: 09-28-2023 Patient encounter procedure Sara Green [facility] Start: 09-12-2023 End: 09-12-2023 ambulatory MIGUEL CAI Not Available Start: 09-12-2023 End: 09-12-2023 Office outpatient visit 15 minutes Miguel Cai DPM Work Phone: [facility] Comment on above: Pain of toe of left foot (Primary Dx); Contusion of left lesser toe(s) w/o damage to nail, init; Verruca plantaris; Verruca Start: 09-11-2023 Chart abstracting Miguel hernandez DPM Work Phone: [facility] Start: 08-31-2023 End: 09-15-2023 Pre-admission assessment Sara Green [facility] Start: 08-31-2023 End: 08-31-2023 ambulatory Sara Green Facility[facility] Start: 08-17-2023 End: 08-17-2023 ambulatory Sara Green [facility] Start: 08-17-2023 End: 08-17-2023 Patient encounter procedure Sara Green [facility] Start: 08-08-2023 End: 08-08-2023 ambulatory MIGUEL CAI Not Available Start: 08-02-2023 End: 08-02-2023 ambulatory Sara Green Facility:[facility] Start: 08-02-2023 End: 08-02-2023 Patient encounter procedure Sara Green [facility] Start: 07-21-2023 End: 07-21-2023 ambulatory GEENA HANSEN Facility:[facility] [place] Start: 07-18-2023 ambulatory Sara Green Facilit y:[facility] Start: 04-19-2023 End: 04-19-2023 Patient encounter procedure Randa Gudimella [facility] Start: 02-03-2023 End: 02-03-2023 Patient encounter procedure Kenyetta L Mykel [facility] Start: 01-17-2023 End: 01-17-2023 Lab Drop off Kenyetta L Mykel [facility] Start: 10-12-2022 End: 10-12-2022 Patient encounter procedure Randa Gudimella [facility] Start: 06-08-2022 End: 06-08-2022 Patient encounter procedure Mack Monson [facility] Start: 05-17-2022 End: 05-17-2022 Patient encounter procedure Randa Gudimella [facility] Start: 03-30-2022 End: 06-28-2022 Recurring Randaannalee Billy [facility] Start: 03-23-2022 End: 03-23-2022 Patient encounter procedure Randaannalee Billy [facility] Start: 12-23-2021 End: 12-23-2021 Patient encounter procedure Monet Vázquez [facility] Start: 12-23-2021 End: 12-23-2021 Patient encounter procedure Krystal Keene [facility] Start: 11-01-2021 End: 11-01-2021 Patient encounter procedure Krystal Keene [facility] Start: 03-17-2021 End: 06-26-[address] ALONDRA CLEMENT Facility: Start: 02-22-2021 End: 02-22-2021 ambulatory [facility] Start: 02-22-2021 End: 02-22-2021 Phys/qhp telephone evaluation 11-20 min Nikki Perez MD Work Phone: [facility] Comment on above: Bipolar affective di sorder, mixed, in full remission (HCC) (Primary Dx); Insomnia due to mental disorder Start: 11-20-2020 End: 11-24-2020 ambulatory [facility] Start: 11-20-2020 End: 11-20-2020 Phys/qhp telephone evaluation 11-20 min Nikki Perez Work Phone: [facility] Comment on above: Bipolar affective di sorder, mixed, in full remission (HCC) (Primary Dx); Insomnia due to mental disorder Start: 08-21-2020 End: 08-21-2020 ambulatory UPJULIANNE PEREZ [facility] Start: 08-21-2020 End: 08-21-2020 Phys/qhp telephone evaluation 11-20 min julianne Perez Work Phone: [facility] Comment on above: Bipolar affective di sorder, mixed, in full remission (HCC) (Primary Dx); Insomnia due to mental disorder Start: 07-27-2018 End: 07-27-2018 Patient encounter procedure Mariana Li Facility:[facility] Start: 12-20-2012 End: 12-20-2012 Telephone encounter Purvi [...] injection. right great toe surgery 4 Al linda Keene Comment on above: March Rupture of anterior cruciate ligament (disorder) Krystal Keene Comment on above: 2005 2005 sinus surgery Krystal Keene Plan of Treatment Date Care Activity Detail Author Start: 10-24-2023 End: 10-24-2023 Patient encounter procedure 10/24/2023 4:00 PM EDT Office Visit [facility] [address] [place] [id number] Miguel Cai DPM [address] [place] [address] [facility] Start: 09-12-2023 End: 09-12-2023 Patient encounter procedure 09/12/2023 4:00 PM EST Office Visit [facility] [address] [place] [address] Miguel Cai DPM [address] [place] [address] [facility] Start: 05-24-2021 End: 05-24-2021 Patient encounter procedure 05/24/2021 Office Visit Psychiatry Nikki Perez MD [address] [place] [address] [phone] [facility] Start: 04-07-2021 Influenza vaccination [facility] Start: 11-20-2020 End: 11-20-2020 Telemedicine 11/20/2020 Telemedicine Psychiatry Nikki Perez MD [address] [place] [address] [phone] [facility] Start: 04-07-2020 Influenza vaccination given Sequential Influenza Vaccine (#1) [facility] Start: 2016 DIABETES SCREEN DIABETES SCREEN [facility] Start: 2016 LIPID SCREEN LIPID SCREEN [facility] Start: 2011 Mammography MAMMOGRAM [facility] Start: 2011 Screening for malignant neoplasm of breast Mammogram [facility] Start: 2001 HPV TESTING HPV TESTING [facility] Start: 1992 PAP TESTING PAP TESTING [facility] Start: 1990 Urine microalbumin profile DTAP,TDAP,TD (1 - Tdap) [facility] Start: 1989 Hepatitis C antibody, confirmatory test Hepatitis C Screening [facility] Start: 1989 HEPATITIS C SCREENING HEPATITIS C SCREENING [facility] Start: 1989 Hepatitis C screening Hepatitis C Screening [facility] Start: 1989 HIV SCREENING HIV SCREENING [facility] Start: 1987 COVID-19 Vaccine (1) COVID-19 Vaccine (1) [facility] Start: 1986 HIV screening HIV Screening [facility] Start: 1983 Adolescent depression screening assessment [facility] Start: 1983 COVID-19 Vaccine (1) COVID-19 Vaccine (1) [facility] Start: 1974 History and physical examination, annual for health maintenance Wellness Visit [facility] Start: 1971 Screening for malignant neoplasm of cervix Pap Smear [facility] Start: 1971 Screening for malignant neoplasm of colon [facility] Start: 1971 Screening mammography Mammogram [facility] Start: 1971 Tetanus vaccination Tetanus: Every 10yrs [facility] Immunizations Immunization Date Immunization Notes Care Provider Christiano zee NEGATED: Highlighted row has not occurred!10-12-2022 influenza virus vaccine, unspecified formulation Randa Wenceslao [facility] NEGATED: Highlighted row has not occurred!06-08-2022 influenza virus vaccine, unspecified formulation Mack Monson [facility] NEGATED: Highlighted row has not occurred!05-06-2021 influenza virus vaccine, unspecified formulation [facility] NEGATED: Highlighted row has not occurred!05-06-2021 SARS-CoV-2 (COVID-19) Ad26 vaccine, recombinant [facility] NEGATED: Highlighted row has not occurred!05-21-2020 influenza virus vaccine, unspecified formulation [facility] NEGATED: Highlighted row has not occurred!03-05-2020 influenza virus vaccine, unspecified formulation [facility] Payers Date Payer Category Payer Unknown [id number] 2018 Unknown BCBS BCBS [id number] 2018-Present [phone] [id number] [place] [address] [id number] 2018 Unknown [id number] 2018 Self-pay ABC 2012 Unknown [id number] 2012 Unknown [id number] [id number] 1971 Unknown [id number] 2.16.840.1.722286.3.579.2.718 1971 Unknown [id number] 2.16.840.1.678996.3.579.2.903 1971 Unknown [id number] 2.16.840.1.347284.3.579.2.903 1971 Unknown [id number] 2.16.840.1.726956.3.579.2.903 1971 Unknown [id number] 2.16.840.1.360531.3.579.2.593 1971 Unknown [id number] 2.16.840.1.662577.3.579.2.727 1971 Unknown [id number] 2.16.840.1.302942.3.579.2.1259 1971 Unknown [id number] 2.16.840.1.333614.3.579.2.1259 1971 Unknown [id number] 2.16.840.1.894509.3.579.2.1259 1971 Unknown [id number] 2.16.840.1.920386.3.579.2.1259 1971 Unknown [id number] 2.16.840.1.794554.3.579.2.727 1971 Unknown [id number] 2.16.840.1.232352.3.579.2.727 1971 Unknown [id number] 2.16.840.1.147545.3.579.2.727 1971 Unknown [id number] 2.16.840.1.844033.3.579.2. 1971 Unknown [id number] 2.16.840.1.497604.3.579.2 1971 Unknown [id number] 2.16.840.1.187137.3.579.2. 1971 Unknown [id number] 2.16.840.1.137322.3.579.2. 1971 Unknown [id number] 2.16.840.1.590397.3.579.2 1971 Unknown [id number] 2.16.840.1.451964.3.579.2 1971 Unknown [id number] 2.16.840.1.574158.3.579.2 1971 Unknown [id number] 2.16.840.1.375523.3.579.2 1971 Unknown [id number] 2.16.840.1.348643.3.579.2 1971 Unknown [id number] 2.16.840.1.430044.3.579.2 1971 Unknown [id number] 2.16.840.1.966412.3.579.2. 1971 Unknown [id number] 2.16.840.1.241626.3.579.2 1971 Unknown [id number] 2.16.840.1.140450.3.579.2 1971 Unknown [id number] 2.16.840.1.289375.3.579.2 1971 Unknown [id number] 2.16.840.1.671573.3.579.2.7 1959 Self-pay Social History Date Type Detail Facility Start: 08-21-2020 End: 02-12-2023 Tobacco smoking status NHIS Never smoker [facility] Start: 08-21-2020 End: 02-12-2023 Tobacco use and exposure Never used [facility] Start: 08-21-2020 End: 09-12-2023 Alcohol intake Current drinker of alcohol (finding) [facility] Start: 1971 Sex Assigned At Not on file O [facility] Exposure to SARS-CoV -2 (event) Unable to assess [facility] Start: 12-13-2012 End: 06-14-2024 Tobacco smoking status CTIS Former smoker [facility] History of tobacco use Cigarette Smoker C [facility] Work Phone: Start: 12-13-2012 End: 09-12-2023 Cigarettes smoked current (pack per day) - Reported [facility] Start: 12-13-2012 Alcohol intake Not Asked [facility] Exposure to SARS-CoV -2 (event) Not sure [facility] Work Phone (unformatted): [phone] Tobacco smoking status Never [facility] Start: 08-07-2023 End: 09-12-2023 Sex Assigned At Female [facility] How many standard drinks containing alcohol do you have on a typical day? 1 or 2 [facility] How often do you hav e 6 or more drinks on 1 occasion? Monthly [facility] Start: 02-17-2023 Education 21 [facility] Start: 08-07-2023 Alcohol Comment caffeine intak e: 2 cups per day of coffee; green tea [facility] Functional Status Date Assessment Result Facility 05-17-2024 Functional Status N/A [facility] 04-12-2024 Functional Status N/A [facility] 03-01-2024 Functional Status N/A [facility] 01-31-2024 Functional Status N/A [facility] 08-17-2023 Functional Status N/A [facility] 08-02-2023 Functional Status N/A [facility] 10-12-2022 Functional Status N/A [facility] 06-08-2022 Functional Status N/A [facility] 05-17-2022 Functional Status N/A [facility] 03-23-2022 N/A [facility] Clinical Notes 12-20-2012 to 06-14-2024 Miguel Cai DPM - 09/12/2023 4:00 PM Nikki Lazo MD - 02/22/2021 3:13 PM EDTTelephone Amanda - Colin Ellis - 12/20/2012 3:32 PM EDTLaboratoryLaboratoryLaboratoryRadiology Note Date & Type Note Facility 06-14-2024 Hospital Discharge instructions Patient Education 06/14/2024 15:56:34 Otitis Media With Effusion, Adult Otitis Media With Effusion, Adult Otitis media with effusion (OME) is inflammation and fluid (effusion) in the middle ear without having an ear infection. The middle ear is the space behind the eardrum. The middle ear is connected to the back of the throat by a narrow tube (eustachian tube). Normally the eustachian tube drains fluid out of the middle ear. A swollen eustachian tube can become blocked and cause fluid to collect in the middle ear. OME often goes away without treatment. Sometimes OME can lead to hearing problems and recurrent acute ear infections (acute otitis media). These conditions may require treatment. What are the causes? OME is caused by a blocked eustachian tube. This can result from: Allergies. Upper respiratory infections. Enlarged adenoids. The adenoids are areas of soft tissue located high in the back of the throat, behind the nose and the roof of the mouth. They are part of the body's natural defense system (immune system). Rapid changes in pressure, like when an airplane is descending or during scuba diving. In some cases, the cause of this condition is not known. What are the signs or symptoms? Common symptoms of this condition include: A feeling of fullness in your ear. Decreased hearing in the affected ear. Fluid draining into the ear canal. Pain in the ear. In some cases, there are no symptoms. How is this diagnosed? A health care provider can diagnose OME based on signs and symptoms of the condition. Your provider will also do a physical exam to check for fluid behind the eardrum. During the exam, your health care provider will use an instrument called an otoscope to look in your ear. Your health care provider may do other tests, such as: A hearing test. A tympanogram. This is a test that shows how well the eardrum moves in response to air pressure in the ear canal. It provides a graph for your health care provider to review. A pneumatic otoscopy. This is a test to check how your eardrum moves in response to changes in pressure. It is done by squeezing a small amount of air into the ear. How is this treated? Treatment for OME depends on the cause of the condition and the severity of symptoms. The first step is often waiting to see if the fluid drains on its own in a few weeks. Home care treatment may include: [id number] pain relievers. A warm, moist cloth placed over the ear. Severe cases may require a procedure to insert tubes in the ears (tympanostomy tubes) to drain the fluid. Follow these instructions at home: Take [id number] and prescription medicines only as told by your health care provider. Keep all follow-up visits. Contact a health care provider if: You have pain that gets worse. Hearing in your affected ear gets worse. You have fluid draining from your ear canal. You have dizziness. You develop a fever. Get help right away if: You develop a severe headache. You completely lose hearing in the affected ear. You have bleeding from your ear canal. You have sudden and severe pain in your ear. These symptoms may represent a serious problem that is an emergency. Do not wait to see if the symptoms will go away. Get medical help right away. Call your local emergency services (911 in the [place] Do not drive yourself to the hospital. Summary Otitis media with effusion (OME) is inflammation and fluid (effusion) in the middle ear without having an ear infection. A swollen eustachian tube can become blocked and cause fluid to collect in the middle ear. Treatment for OME depends on the cause of the condition and the severity of symptoms. Many times, treatment is not needed because the fluid drains on its own in a few weeks. Sometimes OME can lead to hearing problems and recurrent acute ear infections (acute otitis media), which may require treatment. This information is not intended to replace advice given to you by your health care provider. Make sure you discuss any questions you have with your health care provider. Document Revised: 11/18/2021 Document Reviewed: 11/18/2021 [employer] Patient Education 2023 [employer] 06/14/2024 15:56:30 Fungal Nail Infection Fungal Nail Infection A fungal nail infection is a common infection of the toenails or fingernails. This condition affects toenails more often than fingernails. It often affects the great, or big, toes. More than one nail may be infected. The condition can be passed from person to person (is contagious). What are the causes? This condition is caused by a fungus, such as yeast or molds. Several types of fungi can cause the infection. These fungi are common in moist and warm areas. If your hands or feet come into contact with the fungus, it may get into a crack in your fingernail or toenail or in the surrounding skin, and cause an infection. What increases the risk? The following factors may make you more likely to develop this condition: Being of older age. Having certain medical conditions, such as: ?Athlete's foot. ?Diabetes. ?Poor circulation. ?A weak body defense system (immune system). Walking barefoot in areas where the fungus thrives, such as showers or locker rooms. Wearing shoes and socks that cause your feet to sweat. Having a nail injury or a recent nail surgery. What are the signs or symptoms? Symptoms of this condition include: A pale spot on the nail. Thickening of the nail. A nail that becomes yellow, brown, or white. A brittle or ragged nail edge. A nail that has lifted away from the nail bed. How is this diagnosed? This condition is diagnosed with a physical exam. Your health care provider may take a scraping or clipping from your nail to test for the fungus. How is this treated? Treatment is not needed for mild infections. If you have significant nail changes, treatment may include: Antifungal medicines taken by mouth (orally). You may need to take the medicine for several weeks or several months, and you may not see the results for a long time. These medicines can cause side effects. Ask your health care provider what problems to watch for. Antifungal nail turkmen or nail cream. These may be used along with oral antifungal medicines. Laser treatment of the nail. Surgery to remove the nail. This may be needed for the most severe infections. It can take a long time, usually up to a year, for the infection to go away. The infection may also come back. Follow these instructions at home: Medicines Take or apply ieax-ztw-xonbtcd and prescription medicines only as told by your health care provider. Ask your health care provider about using lnsv-pud-uhzxdwz mentholated ointment on your nails. Nail care Trim your nails often. Wash and dry your hands and feet every day. Keep your feet dry. To do this: ?Wear absorbent socks, and change your socks frequently. ?Wear shoes that allow air to circulate, such as sandals or canvas tennis shoes. Throw out old shoes. If you go to a nail salon, make sure you choose one that uses clean instruments. Use antifungal foot powder on your feet and in your shoes. General instructions Do not share personal items, such as towels or nail clippers. Do not walk barefoot in shower rooms or locker rooms. Wear rubber gloves if you are working with your hands in wet areas. Keep all follow-up visits. This is important. Contact a health care provider if: You have redness, pain, or pus near the toenail or fingernail. Your infection is not getting better, or it is getting worse after several months. You have more circulation problems near the toenail or fingernail. You have brown or black discoloration of the nail that spreads to the surrounding skin. Summary A fungal nail infection is a common infection of the toenails or fingernails. Treatment is not needed for mild infections. If you have significant nail changes, treatment may include taking medicine orally and applying medicine to your nails. It can take a long time, usually up to a year, for the infection to go away. The infection may also come back. Take or apply zfxt-wfp-vbaexrx and prescription medicines only as told by your health care provider. This information is not intended to replace advice given to you by your health care provider. Make sure you discuss any questions you have with your health care provider. Document Revised: 10/25/2021 Document Reviewed: 10/25/2021 [employer] Patient Education 2023 [employer] 06/14/2024 15:56:28 Health Maintenance, Female Health Maintenance, Female Adopting [...] provider. Document Revised: 12/13/2021 Document Reviewed: 12/13/2021 [employer] Patient Education 2023 [employer] 06/14/2024 15:56:26 Fatty Liver Disease Fatty Liver Disease The liver converts food into energy, removes toxic material from the blood, makes important proteins, and absorbs necessary vitamins from food. Fatty liver disease occurs when too much fat has built up in your liver cells. Fatty liver disease is also called hepatic steatosis. In many cases, fatty liver disease does not cause symptoms or problems. It is often diagnosed when tests are being done for other reasons. However, over time, fatty liver can cause inflammation that may lead to more serious liver problems, such as scarring of the liver (cirrhosis) and liver failure. Fatty liver is associated with insulin resistance, increased body fat, high blood pressure (hypertension), and high cholesterol. These are features of metabolic syndrome and increase your risk for stroke, diabetes, and heart disease. What are the causes? This condition may be caused by components of metabolic syndrome: Obesity. Insulin resistance. High cholesterol. Other causes: Alcohol abuse. Poor nutrition. [place] syndrome. . Certain drugs. Poisons. Some viral infections. What increases the risk? You are more likely to develop this condition if you: Abuse alcohol. Are overweight. Have diabetes. Have hepatitis. Have a high triglyceride level. Are . What are the signs or symptoms? Fatty liver disease often does not cause symptoms. If symptoms do develop, they can include: Fatigue and weakness. Weight loss. Confusion. Nausea, vomiting, or abdominal pain. Yellowing of your skin and the white parts of your eyes (jaundice). Itchy skin. How is this diagnosed? This condition may be diagnosed by: A physical exam and your medical history. Blood tests. Imaging tests, such as an ultrasound, CT scan, or MRI. A liver biopsy. A small sample of liver tissue is removed using a needle. The sample is then looked at under a microscope. How is this treated? Fatty liver disease is often caused by other health conditions. Treatment for fatty liver may involve medicines and lifestyle changes to manage conditions such as: Alcoholism. High cholesterol. Diabetes. Being overweight or obese. Follow these instructions at home: Do not drink alcohol. If you have trouble quitting, ask your health care provider how to safely quit with the help of medicine or a supervised program. This is important to keep your condition from getting worse. Eat a healthy diet as told by your health care provider. Ask your health care provider about working with a dietitian to develop an eating plan. Exercise regularly. This can help you lose weight and control your cholesterol and diabetes. Talk to your health care provider about an exercise plan and which activities are best for you. Take ykri-gwz-snbgrfo and prescription medicines only as told by your health care provider. Keep all follow-up visits. This is important. Contact a health care provider if: You have trouble controlling your: ?Blood sugar. This is especially important if you have diabetes. ?Cholesterol. ?Drinking of alcohol. Get help right away if: You have abdominal pain. You have jaundice. You have nausea and are vomiting. You vomit blood or material that looks like coffee grounds. You have stools that are black, tar-like, or bloody. Summary Fatty liver disease develops when too much fat builds up in the cells of your liver. Fatty liver disease often causes no symptoms or problems. However, over time, fatty liver can cause inflammation that may lead to more serious liver problems, such as scarring of the liver (cirrhosis). You are more likely to develop this condition if you abuse alcohol, are , are overweight, have diabetes, have hepatitis, or have high triglyceride or cholesterol levels. Contact your health care provider if you have trouble controlling your blood sugar, cholesterol, or drinking of alcohol. This information is not intended to replace advice given to you by your health care provider. Make sure you discuss any questions you have with your health care provider. Document Revised: 05/06/2021 Document Reviewed: 05/06/2021 [employer] Patient Education 2023 [employer] Follow Up Care 05/17/2024 15:08:33 With:Sara Flood [facility] Address: [address], [address] [facility] [address] [place] [address]- When:Within 1 Month(s) Comments:weight check, f/u liver US and lipase [facility] 06-14-2024 Note Patient Education ENT Otitis Media With Effusion, Adult Otitis media with effusion (OME) is inflammation and fluid (effusion) in the middle ear without having an ear infection. The middle ear is the space behind the eardrum. The middle ear is connected to the back of the throat by a narrow tube (eustachian tube). Normally the eustachian tube drains fluid out of the middle ear. A swollen eustachian tube can become blocked and cause fluid to collect in the middle ear. OME often goes away without treatment. Sometimes OME can lead to hearing problems and recurrent acute ear infections (acute otitis media). These conditions may require treatment. What are the causes? OME is caused by a blocked eustachian tube. This can result from: ??? Allergies. ??? Upper respiratory infections. ??? Enlarged adenoids. The adenoids are areas of soft tissue located high in the back of the throat, behind the nose and the roof of the mouth. They are part of the body's natural defense system (immune system). ??? Rapid changes in pressure, like when an airplane is descending or during scuba diving. In some cases, the cause of this condition is not known. What are the signs or symptoms? Common symptoms of this condition include: ??? A feeling of fullness in your ear. ??? Decreased hearing in the affected ear. ??? Fluid draining into the ear canal. ??? Pain in the ear. In some cases, there are no symptoms. How is this diagnosed? A health care provider can diagnose OME based on signs and symptoms of the condition. Your provider will also do a physical exam to check for fluid behind the eardrum. During the exam, your health care provider will use an instrument called an otoscope to look in your ear. Your health care provider may do other tests, such as: ??? A hearing test. ??? A tympanogram. This is a test that shows how well the eardrum moves in response to air pressure in the ear canal. It provides a graph for your health care provider to review. ??? A pneumatic otoscopy. This is a test to check how your eardrum moves in response to changes in pressure. It is done by squeezing a small amount of air into the ear. How is this treated? Treatment for OME depends on the cause of the condition and the severity of symptoms. The first step is often waiting to see if the fluid drains on its own in a few weeks. Home care treatment may include: ??? Ywho-bnc-svifljr pain relievers. ??? A warm, moist cloth placed over the ear. Severe cases may require a procedure to insert tubes in the ears (tympanostomy tubes) to drain the fluid. Follow these instructions at home: ??? Take vevg-iba-kxougrl and prescription medicines only as told by your health care provider. ??? Keep all follow-up visits. Contact a health care provider if: ??? You have pain that gets worse. ??? Hearing in your affected ear gets worse. ??? You have fluid draining from your ear canal. ??? You have dizziness. ??? You develop a fever. Get help right away if: ??? You develop a severe headache. ??? You completely lose hearing in the affected ear. ??? You have bleeding from your ear canal. ??? You have sudden and severe pain in your ear. These symptoms may represent a serious problem that is an emergency. Do not wait to see if the symptoms will go away. Get medical help right away. Call your local emergency services (911 in the [place] Do not drive yourself to the hospital. Summary ??? Otitis media with effusion (OME) is inflammation and fluid (effusion) in the middle ear without having an ear infection. ??? A swollen eustachian tube can become blocked and cause fluid to collect in the middle ear. ??? Treatment for OME depends on the cause of the condition and the severity of symptoms. ??? Many times, treatment is not needed because the fluid drains on its own in a few weeks. ??? Sometimes OME can lead to hearing problems and recurrent acute ear infections (acute otitis media), which may require treatment. This information is not intended to replace advice given to you by your health care provider. Make sure you discuss any questions you have with your health care provider. Document Revised: 11/18/2021 Document Reviewed: 11/18/2021 [employer] Patient Education ? 2023 [employer] Infectious Disease Fungal Nail Infection A fungal nail infection is a common infection of the toenails or fingernails. This condition affects toenails more often than fingernails. It often affects the great, or big, toes. More than one nail may be infected. The condition can be passed from person to person (is contagious). What are the causes? This condition is caused by a fungus, such as yeast or molds. Several types of fungi can cause the infection. These fungi are common in moist and warm areas. If your hands or feet come into contact with the fungus, it may get into a crack in your fingernail or toenail or in the surroundin (more content not included)... [facility] 05-17-2024 Hospital Discharge instructions Patient Education 05/17/2024 15:08:31 Preventing Health Risks of Being Overweight Preventing [...] food choices, such as grocery stores and [employer] markets. What actions can I take to [...] in-person. Where to find more information My[employer]: www.choosemyplate.gov ?This an online tool that provides personalized [...] provider. Document Revised: 02/18/2022 Document Reviewed: 02/18/2022 [employer] Patient Education 2023 [employer] 05/17/2024 15:08:29 Hypertension, Adult Hypertension, Adult High blood pressure [...] follow-up visits. This is important. Medicines Take iawd-xom-acojrde and prescription medicines only as told by [...] provider. Document Revised: 05/31/2022 Document Reviewed: 05/31/2022 [employer] Patient Education 2023 [employer] 05/17/2024 15:08:26 Carbohydrate Counting for Diabetes Mellitus, Adult Carbohydrate [...] 1.Identify the foods that contain carbohydrates: Rice. [place]. Milk. Strawberries. 2.Calculate how many servings you [...] and snacks. Where to find more information [place] [employer]: diabetes.org Centers for Disease Control [...] provider. Document Revised: 02/24/2021 Document Reviewed: 02/24/2021 [employer] Patient Education 2023 [employer] 05/17/2024 15:08:24 High Cholesterol High Cholesterol High cholesterol is [...] your health care provider. General instructions Take gcfs-qcz-iwapnth and prescription medicines only as told by your health care provider. Keep all follow-up visits. This is important. Where to find more information [place] [employer]: www.heart.org National Heart, Lung, and Blood [place]: www.nhlbi.nih.gov Contact a health care provider if: [...] provider. Document Revised: 02/24/2023 Document Reviewed: 09/27/2021 [employer] Patient Education 2023 [employer] 05/17/2024 15:08:22 Dyslipidemia Dyslipidemia Dyslipidemia is an imbalance of waxy, fat-like substances (lipids) in the blood. The body needs lipids in small amounts. Dyslipidemia often involves a high level of cholesterol or triglycerides, which are types of lipids. Common forms of dyslipidemia include: High levels of LDL cholesterol. LDL is the type of cholesterol that causes fatty deposits (plaques) to build up in the blood vessels that carry blood away from the heart (arteries). Low levels of HDL cholesterol. HDL cholesterol is the type of cholesterol that protects against heart disease. High levels of HDL remove the LDL buildup from arteries. High levels of triglycerides. Triglycerides are a fatty substance in the blood that is linked to a buildup of plaques in the arteries. What are the causes? There are two main types of dyslipidemia: primary and secondary. Primary dyslipidemia is caused by changes (mutations) in genes that are passed down through families (inherited). These mutations cause several types of dyslipidemia. Secondary dyslipidemia may be caused by various risk factors that can lead to the disease, such as lifestyle choices and certain medical conditions. What increases the risk? You are more likely to develop this condition if you are an older man or if you are a woman who has gone through menopause. Other risk factors include: Having a family history of dyslipidemia. Taking certain medicines, including control pills, steroids, some diuretics, and beta-blockers. Eating a diet high in saturated fat. Smoking cigarettes or excessive alcohol intake. Having certain medical conditions such as diabetes, polycystic ovary syndrome (PCOS), kidney disease, liver disease, or hypothyroidism. Not exercising regularly. Being overweight or obese with too much belly fat. What are the signs or symptoms? In most cases, dyslipidemia does not usually cause any symptoms. In severe cases, very high lipid levels can cause: Fatty bumps under the skin (xanthomas). A white or mane ring around the black center (pupil) of the eye. Very high triglyceride levels can cause inflammation of the pancreas (pancreatitis). How is this diagnosed? Your health care provider may diagnose dyslipidemia based on a routine blood test (fasting blood test). Because most people do not have symptoms of the condition, this blood testing (lipid profile) is done on adults age 20 and older and is repeated every 4-6 years. This test checks: Total cholesterol. This measures the total amount of cholesterol in your blood, including LDL cholesterol, HDL cholesterol, and triglycerides. A healthy number is below 200 mg/dL (5.17 mmol/L). LDL cholesterol. The target number for LDL cholesterol is different for each person, depending on individual risk factors. A healthy number is usually below 100 mg/dL (2.59 mmol/L). Ask your health care provider what your LDL cholesterol should be. HDL cholesterol. An HDL level of 60 mg/dL (1.55 mmol/L) or higher is best because it helps to protect against heart disease. A number below 40 mg/dL (1.03 mmol/L) for men or below 50 mg/dL (1.29 mmol/L) for women increases the risk for heart disease. Triglycerides. A healthy triglyceride number is below 150 mg/dL (1.69 mmol/L). If your lipid profile is abnormal, your health care provider may do other blood tests. How is this treated? Treatment depends on the type of dyslipidemia that you have and your other risk factors for heart disease and stroke. Your health care provider will have a target range for your lipid levels based on this information. Treatment for dyslipidemia starts with lifestyle changes, such as diet and exercise. Your health care provider may recommend that you: Get regular exercise. Make changes to your diet. Quit smoking if you smoke. Limit your alcohol intake. If diet changes and exercise do not help you reach your goals, your health care provider may also prescribe medicine to lower lipids. The most commonly prescribed type of medicine lowers your LDL cholesterol (statin drug). If you have a high triglyceride level, your provider may prescribe another type of drug (fibrate) or an omega-3 fish oil supplement, or both. Follow these instructions at home: Eating and drinking Follow instructions from your health care provider or dietitian about eating or drinking restrictions. Eat a healthy diet as told by your health care provider. This can help you reach and maintain a healthy weight, lower your LDL cholesterol, and raise your HDL cholesterol. This may include: ?Limiting your calories, if you are overweight. ?Eating more fruits, vegetables, whole grains, fish, and lean meats. ?Limiting saturated fat, trans fat, and cholesterol. Do not drink alcohol if: ?Your health care provider tells you not to drink. ?You are , may be , or are planning to become . If you drink alcohol: ?Limit how much you have to: ?0 1 drink a day for women. ? 0 2 drinks a day for men. ?Know how much alcohol is in your drink. In the [place] one drink equals one 12 oz bottle of beer (355 mL), one 5 oz glass of wine (148 mL), or one 1 oz glass of hard liquor (44 mL). Activity Get regular exercise. Start an exercise and strength training program as told by your health care provider. Ask your health care provider what activities are safe for you. Your health care provider may recommend: ?30 minutes of aerobic activity 4 6 days a week. Brisk walking is an example of aerobic activity. ?Strength training 2 days a week. General instructions Do not use any products that contain nicotine or tobacco. These products include cigarettes, chewing tobacco, and vaping devices, such as e-cigarettes. If you need help quitting, ask your health care provider. Take tqfc-bcg-bcxpfaq and prescription medicines only as told by your health care provider. This includes supplements. Keep all follow-up visits. This is important. Contact a health care provider if: You are having trouble sticking to your exercise or diet plan. You are struggling to quit smoking or to control your use of alcohol. Summary Dyslipidemia often involves a high level of cholesterol or triglycerides, which are types of lipids. Treatment depends on the type of dyslipidemia that you have and your other risk factors for heart disease and stroke. Treatment for dyslipidemia starts with lifestyle changes, such as diet and exercise. Your health care provider may prescribe medicine to lower lipids. This information is not intended to replace advice given to you by your health care provider. Make sure you discuss any questions you have with your health care provider. Document Revised: 02/24/2023 Document Reviewed: 09/27/2021 [employer] Patient Education 2023 [employer] Follow Up Care 04/12/2024 11:34:47 With:Sara Flood FAM, MED Address: [address] [place] [address] [place], [facility] [address] [address]- When:Within 1 Month(s) Comments:semaglutide - labs- hld [facility] 05-17-2024 Note Patient Education Cardiovascular Hypertension, Adult High blood [...] 5 oz glass of wine (148 mL), (more content not included)... [facility] 04-22-2024 Note ED Patient Education Note Gastroenterology [...] ? Low-calorie sports drinks. ? Eat bland, zcbr-dm-uwlhay foods in small amounts as you are able, such as: ? Bananas. ? Applesauce. ? Rice. ? Low-fat (lean) meats. ? Brewer. ? Crackers. ? Avoid drinking fluids that have a lot of sugar or caffeine in them. This includes energy drinks, sports drinks, and soda. ? Avoid alcohol. ? Avoid spicy or fatty foods. General instructions ? Take awxq-gyq-qzvmnro and prescription medicines only as told by [...] cannot use soap and water, use hand flosser. ? Make sure that everyone in your [...] drink what your doctor tells you. Take eixr-olp-rbpxfbg and prescription medicines only as told by [...] provider. Document Revised: 01/28/2022 Document Reviewed: 01/28/2022 [employer] Patient Education ? 2023 [employer] Abdominal Pain, Adult Many things can cause belly (abdominal) pain. In most cases, belly pain is not a serious problem and can be watched and treated at home. But in some cases, it can be serious. Your doctor will try to find the cause of your belly pain. Follow these instructions at home: Medicines ? Take xheb-rwa-clzoxjm and prescription medicines only as told by [...] Your belly pa (more content not included)... [facility] 04-12-2024 Hospital Discharge instructions Patient Education 04/12/2024 11:35:42 BMI for [...] Centers for Disease Control and Prevention: cdc.gov [place] [employer]: heart.org National Heart, Lung, and Blood [place]: nhlbi.nih.gov This information is not intended to replace advice given to you by your health care provider. Make sure you discuss any questions you have with your health care provider. Document Revised: 04/13/2023 Document Reviewed: 04/06/2023 [employer] Patient Education 2023 [employer]. 04/12/2024 11:35:40 Nausea, Adult Nausea, Adult Nausea [...] water added (diluted fruit juice). Eat bland, yayw-bg-oidhmy foods in small amounts as you are able. These foods include bananas, applesauce, rice, lean meats, toast, and crackers. Avoid drinking fluids that contain a lot of sugar or caffeine, such as energy drinks, sports drinks, and soda. Avoid alcohol. Avoid spicy or fatty foods. General instructions Take gxid-azd-cgwmwpw and prescription medicines only as told by your health care provider. Rest at home while you recover. Drink enough fluid to keep your urine pale yellow. Breathe slowly and deeply when you feel nauseous. Avoid smelling things that have strong odors. Wash your hands often using soap and water for at least 20 seconds. If soap and water are not available, use hand flosser. Make sure that everyone in your household [...] recommendations for eating and drinking and take xcue-cdg-oxxidej and prescription medicines only as told by [...] provider. Document Revised: 01/28/2022 Document Reviewed: 01/28/2022 [employer] Patient Education 2023 [employer] 04/12/2024 11:35:37 Preventing Health Risks of Being [...] food choices, such as grocery stores and Tout. What actions can I take to prevent [...] in-person. Where to find more information MyPlate: www.choosemyplate.gov ?This an online tool that provides personalized [...] provider. Document Revised: 02/18/2022 Document Reviewed: 02/18/2022 [employer] Patient Education 2023 [employer] 04/12/2024 11:35:35 Heart Disease Prevention Heart Disease [...] of hard liquor (44 mL). Medicines Take ktct-ilv-ceoeytb and prescription medicines only as told by [...] Centers for Disease Control and Prevention: www.cdc.gov/heartdisease [place] [employer]: www.heart.org Summary Heart disease is [...] provider. Document Revised: 03/23/2022 Document Reviewed: 03/23/2022 [employer] Patient Education 2023 [employer] 04/12/2024 11:35:33 High Cholesterol High Cholesterol High [...] your health care provider. General instructions Take uziu-rih-vokrynr and prescription medicines only as told by your health care provider. Keep all follow-up visits. This is important. Where to find more information [place] Heart Association: www.heart.org National Heart, Lung, and Blood [place]: www.nhlbi.nih.gov Contact a health care provider if: [...] provider. Document Revised: 02/24/2023 Document Reviewed: 09/27/2021 [employer] Patient Education 2023 [employer] 04/12/2024 11:35:31 Hypertension, Adult Hypertension, Adult High [...] follow-up visits. This is important. Medicines Take zieu-ixz-mspiksq and prescription medicines only as told by [...] provider. Document Revised: 05/31/2022 Document Reviewed: 05/31/2022 [employer] Patient Education 2023 [employer] 04/12/2024 11:35:31 Heart Disease Prevention Heart Disease [...] of hard liquor (44 mL). Medicines Take msjp-fqe-azjtsum and prescription medicines only as told by [...] Centers for Disease Control and Prevention: www.cdc.gov/heartdisease [place] [employer]: www.heart.org Summary Heart disease is [...] provider. Document Revised: 03/23/2022 Document Reviewed: 03/23/2022 [employer] Patient Education 2023 [employer] 04/12/2024 11:35:28 Carbohydrate Counting for Diabetes Mellitus, [...] 1.Identify the foods that contain carbohydrates: Rice. Broughton. Milk. Strawberries. 2.Calculate how many servings you [...] and snacks. Where to find more information [place] Diabetes Association: diabetes.org Centers for Disease Control [...] provider. Document Revised: 02/24/2021 Document Reviewed: 02/24/2021 [employer] Patient Education 2023 [employer] Follow Up Care 04/11/2024 15:24:53 With:Sara Flood FAM, MED Address: [facility], [facility] [place] [id number]- When:Within 1 Month(s) Comments:weight loss [facility] 04-12-2024 Note Patient Education [...] hard liquor (44 mL). Medicines ? Take unfo-fpm-rvwxska and prescription medicines only as told by [...] weight. Where to (more content not included)... [facility] 01-31-2024 Hospital Discharge instructions Patient Education 01/31/2024 12:55:50 Musculoskeletal Pain [...] mouth or applied to the skin. Take kmmp-aak-uuvfzxl and prescription medicines only as told by [...] provider. Document Revised: 11/26/2020 Document Reviewed: 11/04/2020 [employer] Patient Education 2022 [employer] 01/31/2024 12:55:45 Paresthesia Paresthesia Paresthesia is an [...] hard liquor (44 mL). General instructions Take koee-wdy-yymqmow and prescription medicines only as told by [...] provider. Document Revised: 04/04/2022 Document Reviewed: 04/04/2022 [employer] Patient Education 2022 [employer] 01/31/2024 12:55:42 Edema Edema Edema is [...] Follow these instructions at home: Medicines Take oimj-kjk-ksxqlxk and prescription medicines only as told by [...] provider. Document Revised: 03/28/2022 Document Reviewed: 03/28/2022 [employer] Patient Education 2022 [employer] 01/31/2024 12:55:37 Carbohydrate Counting for Diabetes Mellitus, [...] 1.Identify the foods that contain carbohydrates: Rice. Broughton. Milk. Strawberries. 2.Calculate how many servings you [...] and snacks. Where to find more information [place] Diabetes Association: diabetes.org Centers for Disease Control [...] provider. Document Revised: 02/24/2021 Document Reviewed: 02/24/2021 [employer] Patient Education 2022 [employer] 01/31/2024 12:55:36 Calorie Counting for Weight Loss [...] provider. Document Revised: 09/03/2020 Document Reviewed: 09/03/2020 [employer] Patient Education 2022 [employer] 01/31/2024 12:55:35 BMI for Adults BMI for [...] numbers. This can be done either in Spanish (U.S.) or metric measurements. Note that charts and online BMI calculators are available to help you find your BMI quickly and easily without having to do these calculations yourself. To calculate your BMI in Spanish (U.S.) measurements: 1.Measure your weight in pounds [...] Centers for Disease Control and Prevention: www.cdc.gov [place] Heart Association: www.heart.org National Heart, Lung, and Blood [place]: www.nhlbi.nih.gov Summary Body mass index (BMI) is a number that is calculated from a person's weight and height. BMI may help estimate how much of a person's weight is composed of fat. BMI can help identify those who may be at higher risk for certain medical problems. BMI can be measured using Spanish measurements or metric measurements. BMI charts are used to identify whether you are underweight, normal weight, overweight, or obese. This information is not intended to replace advice given to you by your health care provider. Make sure you discuss any questions you have with your health care provider. Document Revised: 04/15/2020 Document Reviewed: 02/21/2020 [employer] Patient Education 2022 [employer] 01/31/2024 12:55:32 Hypothyroidism Hypothyroidism Hypothyroidism is when [...] away. Follow these instructions at home: Take dett-lsj-oeatbdw and prescription medicines only as told by [...] provider. Document Revised: 07/26/2022 Document Reviewed: 07/26/2022 [employer] Patient Education 2022 [employer] 01/31/2024 12:55:30 Hypertension, Adult Hypertension, Adult High [...] follow-up visits. This is important. Medicines Take wxtc-unr-zppkglr and prescription medicines only as told by [...] provider. Document Revised: 05/31/2022 Document Reviewed: 05/31/2022 [employer] Patient Education 2022 [employer] 01/31/2024 12:55:30 Heart Disease Prevention Heart Disease [...] of hard liquor (44 mL). Medicines Take mpij-cuk-xpryscr and prescription medicines only as told by [...] Centers for Disease Control and Prevention: www.cdc.gov/heartdisease [place] Heart [employer]: www.heart.org Summary Heart disease is [...] provider. Document Revised: 03/23/2022 Document Reviewed: 03/23/2022 [employer] Patient Education 2022 [employer] 01/31/2024 12:55:29 DASH Eating Plan DASH Eating [...] Dairy Whole or 2% milk, cream, and bgol-zem-qkxt. Whole or full-fat cream cheese. Whole-fat or sweetened yogurt. Full-fat cheese. Nondairy creamers. Whipped toppings. Processed cheese and cheese spreads. Fats and oils Butter. Stick margarine. Lard. Shortening. Ghee. Hopper fat. Tropical oils, such as coconut, palm kernel, or palm oil. Seasonings and condiments Onion salt, garlic salt, seasoned salt, table salt, and sea salt. [facility] sauce. Tartar sauce. Barbecue sauce. Teriyaki sauce. [...] more information National Heart, Lung, and Blood [place]: www.nhlbi.nih.gov [place] Heart Association: www.heart.org Academy of Nutrition and [...] provider. Document Revised: 06/26/2020 Document Reviewed: 06/26/2020 [employer] Patient Education 2022 [employer] Follow Up Care 08/02/2023 11:59:29 With:Sara Flood FAM, [facility] Address: [address], [facility] [place] [phone]- When:Within 1 Month(s) Comments:f/u weight check, htn, neck check [facility] 09-12-2023 History of Present illness Narrative Reason for Appointment Established patient: [...] date of injury 09-12-2023 SHOE GEAR EVALUATION: [facility] athletic shoes without custom foot orthotics. Imaging [...] COMPLAINT: Left second toe, Date of injury 09-12-2023 3. Verruca plantaris - B07.0 - LT [...] decisions I made. documented in this encounter [facility] 08-17-2023 Hospital Discharge instructions Patient Education 08/17/2023 13:39:46 BMI for [...] numbers. This can be done either in Spanish (U.S.) or metric measurements. Note that charts and online BMI calculators are available to help you find your BMI quickly and easily without having to do these calculations yourself. To calculate your BMI in Spanish (U.S.) measurements: 1.Measure your weight in pounds [...] Centers for Disease Control and Prevention: www.cdc.gov [place] [employer]: www.heart.org National Heart, Lung, and Blood [place]: www.nhlbi.nih.gov Summary Body mass index (BMI) is a number that is calculated from a person's weight and height. BMI may help estimate how much of a person's weight is composed of fat. BMI can help identify those who may be at higher risk for certain medical problems. BMI can be measured using Spanish measurements or metric measurements. BMI charts are used to identify whether you are underweight, normal weight, overweight, or obese. This information is not intended to replace advice given to you by your health care provider. Make sure you discuss any questions you have with your health care provider. Document Revised: 04/15/2020 Document Reviewed: 02/21/2020 [employer] Patient Education 2022 [employer] 08/17/2023 13:39:44 DASH Eating Plan DASH Eating [...] Dairy Whole or 2% milk, cream, and blrc-eaf-lqyn. Whole or full-fat cream cheese. Whole-fat or [...] more information National Heart, Lung, and Blood [place]: www.nhlbi.nih.gov [place] Heart Association: www.heart.org Academy of Nutrition and [...] provider. Document Revised: 06/26/2020 Document Reviewed: 06/26/2020 [employer] Patient Education 2022 [employer] 08/17/2023 13:39:43 Carbohydrate Counting for Diabetes Mellitus, [...] 1.Identify the foods that contain carbohydrates: Rice. Broughton. Milk. Strawberries. 2.Calculate how many servings you [...] and snacks. Where to find more information [place] Diabetes Association: diabetes.org Centers for Disease Control [...] provider. Document Revised: 02/24/2021 Document Reviewed: 02/24/2021 [employer] Patient Education 2022 [employer] 08/17/2023 13:39:42 Calorie Counting for Weight Loss [...] provider. Document Revised: 09/03/2020 Document Reviewed: 09/03/2020 [employer] Patient Education 2022 [employer] 08/17/2023 13:39:32 Contact Dermatitis Contact Dermatitis Dermatitis [...] you may need to see an occupational health physician. How is this treated? This condition [...] perfumes, and dyes. Medicines Take or apply isix-itu-nrflvoo and prescription medicines only as told by [...] and water are not available, use hand flosser. General instructions Avoid the substance that caused [...] provider. Document Revised: 05/09/2022 Document Reviewed: 05/09/2022 [employer] Patient Education 2022 [employer] [facility] 08-02-2023 Hospital Discharge instructions Patient Education 08/02/2023 12:00:08 Fatigue Fatigue [...] Follow these instructions at home: Medicines Take cajz-jue-zeaiutc and prescription medicines only as told by [...] the National Suicide Prevention Lifeline at or 172. This is open 24 hours a day. Text the Crisis Text Line at 704368. Summary If you have fatigue, you feel [...] provider. Document Revised: 05/16/2022 Document Reviewed: 05/16/2022 [employer] Patient Education 2022 [employer] 08/02/2023 12:00:06 Exercising to Lose Weight Exercising [...] your health care provider or diet and nutrition services associate (dietitian). This may include: ?Eating fewer calories. [...] provider. Document Revised: 09/19/2021 Document Reviewed: 09/19/2021 [employer] Patient Education 2022 [employer] 08/02/2023 12:00:05 BMI for Adults BMI for [...] numbers. This can be done either in Spanish (U.S.) or metric measurements. Note that charts and online BMI calculators are available to help you find your BMI quickly and easily without having to do these calculations yourself. To calculate your BMI in Spanish (U.S.) measurements: 1.Measure your weight in pounds [...] Centers for Disease Control and Prevention: www.cdc.gov [place] Heart [employer]: www.heart.org National Heart, Lung, and Blood [place]: www.nhlbi.nih.gov Summary Body mass index (BMI) is a number that is calculated from a person's weight and height. BMI may help estimate how much of a person's weight is composed of fat. BMI can help identify those who may be at higher risk for certain medical problems. BMI can be measured using Spanish measurements or metric measurements. BMI charts are used to identify whether you are underweight, normal weight, overweight, or obese. This information is not intended to replace advice given to you by your health care provider. Make sure you discuss any questions you have with your health care provider. Document Revised: 04/15/2020 Document Reviewed: 02/21/2020 [employer] Patient Education 2022 [employer] 08/02/2023 12:00:01 Chronic Migraine Headache Chronic Migraine [...] Follow these instructions at home: Medicines Take bzji-hgn-oxlzajc and prescription medicines only as told by [...] for Headache and Migraine Patients (CHAMP): headachemigraine.org [place] Migraine Foundation: americanmigrainefoundation.org National Headache Foundation: headaches.org [...] provider. Document Revised: 09/09/2020 Document Reviewed: 09/09/2020 [employer] Patient Education 2022 [employer] 08/02/2023 11:59:59 Insomnia Insomnia Insomnia is a [...] go back to bed. General instructions Take qqys-wcf-htbcusx and prescription medicines only as told by [...] the National Suicide Prevention Lifeline at or 473. This is open 24 hours a day. Text the Crisis Text Line at 320586. Summary Insomnia is a sleep disorder that [...] provider. Document Revised: 07/04/2022 Document Reviewed: 07/04/2022 [employer] Patient Education 2022 [employer] 08/02/2023 11:59:57 Hypertension, Adult Hypertension, Adult High [...] follow-up visits. This is important. Medicines Take cjpg-plr-jbtjqis and prescription medicines only as told by [...] provider. Document Revised: 05/31/2022 Document Reviewed: 05/31/2022 [employer] Patient Education 2022 [employer] 08/02/2023 11:59:56 Heart Disease Prevention Heart Disease [...] of hard liquor (44 mL). Medicines Take nweo-pzm-fllnhbl and prescription medicines only as told by [...] Centers for Disease Control and Prevention: www.cdc.gov/heartdisease [place] Heart Association: www.heart.org Summary Heart disease is [...] provider. Document Revised: 03/23/2022 Document Reviewed: 03/23/2022 [employer] Patient Education 2022 [employer] 08/02/2023 11:59:55 DASH Eating Plan DASH Eating [...] Dairy Whole or 2% milk, cream, and ozvt-mwp-rvbi. Whole or full-fat cream cheese. Whole-fat or [...] more information National Heart, Lung, and Blood [place]: www.nhlbi.nih.gov [place] Heart Association: www.heart.org Academy of Nutrition and [...] provider. Document Revised: 06/26/2020 Document Reviewed: 06/26/2020 [employer] Patient Education 2022 [employer] 08/02/2023 11:59:53 Health Maintenance, Female Health Maintenance, [...] provider. Document Revised: 12/13/2021 Document Reviewed: 12/13/2021 [employer] Patient Education 2022 [employer] Follow Up Care 07/18/2023 11:26:38 With:Sara Flood FAM, MED Address: [address] [place] [phone]- When:Within 1 Month(s) Comments:f/u labs, HTN, With:Sara Flood FAM, MED Address: [address] [employer] [employer] [address] [place] [phone]- Business (1) When:10/11/2023 Comments:for f/u [facility] 05-17-2022 Hospital Discharge instructions Patient Education 05/17/2022 16:52:01 BMI for [...] height. This can be done either in Spanish (U.S.) or metric measurements. Note that charts are available to help you find your BMI quickly and easily without having to do these calculations yourself. To calculate your BMI in Spanish (U.S.) measurements, your health care provider will: [...] medical problems. BMI can be measured using Spanish measurements or metric measurements. To interpret your [...] 04/04/2005 Document Revised: 07/06/2018 Document Reviewed: 06/06/2018 [employer] Patient Education 2020 [employer] Follow Up Care 05/17/2022 11:41:02 With:Wenceslao MARROQUIN, ANGY Tolentino, MED Address: [address] [place] [phone] When: only if needed [facility] [place] 12-23-2021 Hospital Discharge instructions Patient Education 12/23/2021 17:07:26 BMI for [...] height. This can be done either in Spanish (U.S.) or metric measurements. Note that charts are available to help you find your BMI quickly and easily without having to do these calculations yourself. To calculate your BMI in Spanish (U.S.) measurements, your health care provider will: [...] medical problems. BMI can be measured using Spanish measurements or metric measurements. To interpret your [...] 04/04/2005 Document Revised: 07/06/2018 Document Reviewed: 06/06/2018 [employer] Patient Education 2020 [employer] 12/23/2021 17:07:24 Sinusitis, Adult Sinusitis, Adult Sinusitis [...] at home: Medicines Take, use, or apply ttqp-xaz-rmzkqmq and prescription medicines only as told by [...] and water are not available, use hand flosser. Do not smoke. Avoid being around people [...] 07/24/2006 Document Revised: 12/24/2018 Document Reviewed: 12/24/2018 [employer] Patient Education 2019 [employer] Follow Up Care 12/23/2021 07:59:55 With:Monet Vázquez CNP Address: When: only if needed [facility] 11-01-2021 Hospital Discharge instructions Patient Education 11/01/2021 14:52:13 BMI for [...] height. This can be done either in Spanish (U.S.) or metric measurements. Note that charts are available to help you find your BMI quickly and easily without having to do these calculations yourself. To calculate your BMI in Spanish (U.S.) measurements, your health care provider will: [...] medical problems. BMI can be measured using Spanish measurements or metric measurements. To interpret your [...] 04/04/2005 Document Revised: 07/06/2018 Document Reviewed: 06/06/2018 [employer] Patient Education 2020 [employer] Follow Up Care 10/19/2021 14:41:47 With:Krystal Greene Address: [email or web address] When: only if needed [facility] 09-22-2021 Hospital Discharge instructions Follow Up Care 09/22/2021 12:00:37 With:Wenceslao MARROQUIN, Randa, ANGY, MED Address: [address] [place] [phone] Business (1) When:07/17/2021 [facility] 02-22-2021 History of Present illness Narrative Telephone Visit Via Phone Call [facility] [phone] Telephone Visit [facility] 02/22/2021 Nikki Perez MD Provider Location: [facility] Patient Location Document Controller: None Patient Location: Patient's Home Patient: [place]anah [...] there are inherent diagnostic limitations compared to ipxq-la-hbfb evaluations. We elected to proceed with the [...] 50 MG TAB 50 mg Med Name: Joan . Modified Medications No medications on file [...] Plan of Care. documented in this encounter [facility] 12-20-2012 Miscellaneous Notes I called the pt today to schedule this appt. I left a msg for the pt to call in regards to setting up an appt per Dr. Blanco. Colin Page Psr Message copied by COLIN ELLIS on MonDecember 20, 2012 3:31 PM ------ Message from: PURVI BLANCO MD Created: MonDecember 19, 2012 6:42 PM Regarding: Referral to sleep psychology Could this patient please be called to schedule an appt with Dr. Murrell or Dr. Becerra? Have placed order in her chart. Thank you! purvi documented in this encounter [facility] Evaluation + Plan note Future Appointments Appointment Date:03/23/2022 10:20:00 AM Scheduled Provider:Wenceslao MARROQUIN, Randa Location:[facility] Appointment Type: Open Future Scheduled [id number], [place] 06/29/21 [facility] [place] Evaluation + Plan note Future Appointments Appointment Date:12/28/2021 01:45:00 PM Scheduled Provider: Location:.[place]ICAL [place] Appointment Type:PT 45 (FT) Appointment Date:12/30/2021 11:30:00 AM Scheduled Provider: Location:[place]ICAL [place] Appointment Type:PT 45 (FT) Appointment Date:12/31/2021 10:00:00 AM Scheduled Provider: Location:.[place] Appointment Type:PT 45 (FT) Appointment Date:01/04/2022 11:30:00 AM Scheduled Provider: Location:[place]ICAL [place] Appointment Type:PT 45 (FT) Appointment Date:01/06/2022 11:30:00 AM Scheduled Provider: Location:[place]ICAL [place] Appointment Type:PT 45 (FT) Appointment Date:01/10/2022 10:30:00 AM Scheduled Provider: Location:[place]ICAL [place] Appointment Type:PT 45 (FT) Appointment Date:01/12/2022 10:45:00 AM Scheduled Provider: Location:[place]ICAL [place] Appointment Type:PT 45 (FT) Appointment Date:01/14/2022 12:15:00 PM Scheduled Provider: Location:[place]ICAL [place] Appointment Type:PT Re-Eval 45 (FT) Appointment Date:01/17/2022 10:30:00 AM Scheduled Provider: Location:[place]ICAL [place] Appointment Type:PT 45 (FT) Appointment Date:01/19/2022 10:45:00 AM Scheduled Provider: Location:[place]ICAL [place] Appointment Type:PT 45 (FT) Appointment Date:01/20/2022 01:00:00 PM Scheduled Provider: Location:[place]ICAL [place] Appointment Type:PT Re-Eval 45 (FT) Appointment Date:03/23/2022 10:20:00 AM Scheduled Provider:Randa Billy MD Location:[facility] Appointment Type: Open Future Scheduled [id number], [place] 06/29/21 [facility] Evaluation + Plan note Future Appointments Appointment Date:09/21/2022 10:20:00 AM Scheduled Provider:Randa Billy MD Location:[facility] Appointment Type: Open Future Scheduled [id number], [place] 06/29/21MA Mamm Screen w/CAD if perf and 3D James 03/23/22 [facility] Evaluation + Plan note Future Appointments Appointment Date:06/27/2022 02:45:00 PM Scheduled Provider: Location:.MAMMOGRAM Appointment Type:MA Screen (FT) Appointment Date:09/21/2022 10:20:00 AM Scheduled Provider:Randa Billy MD Location:[facility] Appointment Type: Open Future Scheduled [id number]-[id number]-1, [place] 06/29/21MA Mamm Screen w/CAD if perf and 3D James 06/27/22 [facility] Evaluation + Plan note Future Appointments Appointment Date:09/21/2022 10:20:00 AM Scheduled Provider:Randa Billy MD Location:[facility] Appointment Type: Open Future Scheduled [id number], [place] 06/29/21 [facility] Evaluation + Plan note Future Appointments Appointment Date:04/19/2023 11:00:00 AM Scheduled Provider:Randa Billy MD Location:[facility] Appointment Type: Open [facility] [place] Evaluation + Plan note Future Appointments Appointment Date:04/19/2023 11:00:00 AM Scheduled Provider:Randa Billy MD Location:[facility] Appointment Type: Open Future Scheduled TestsUS Thyroid 01/17/23 [facility] Evaluation + Plan note Future Appointments Appointment Date:01/31/2024 11:00:00 AM Scheduled Provider:Sara Flood Location:[facility] Appointment Type: Open Future Scheduled [id number] 08/02/23Vitamin D 25 Hydroxy 08/02/23CBC w/ Auto Diff 08/02/23Comprehensive Metabolic Panel 08/02/23Lipid Panel 08/02/23Thyroid Stimulating Hormone 08/02/23Free T4 08/02/23MA Mamm Screen w/CAD if perf and 3D James 08/02/23 [facility] Evaluation + Plan note Future Appointments Appointment Date:09/29/2023 01:00:00 PM Scheduled Provider:Sara Flood Location:[facility] Appointment Type: Open Appointment Date:01/31/2024 11:00:00 AM Scheduled Provider:Sara Flood Location:[facility] Appointment Type: Open Future Scheduled [id number] 08/02/23Vitamin D 25 Hydroxy 08/02/23CBC w/ Auto Diff 08/02/23Comprehensive Metabolic Panel 08/02/23Lipid Panel 08/02/23Thyroid Stimulating Hormone 08/02/23Free T4 08/02/23MA Mamm Screen w/CAD if perf and 3D James 08/02/23 [facility] Evaluation + Plan note Future Appointments Appointment Date:01/31/2024 11:00:00 AM Scheduled Provider:Sara Flood Location:[facility] Appointment Type: Open Future Scheduled [id number] 08/02/23Vitamin D 25 Hydroxy 08/02/23CBC w/ Auto Diff 08/02/23Comprehensive Metabolic Panel 08/02/23Lipid Panel 08/02/23Thyroid Stimulating Hormone 08/02/23Free T4 08/02/23 [facility] Evaluation + Plan note Future Appointments Appointment Date:01/31/2024 11:00:00 AM Scheduled Provider:Sara Flood Location:[facility] [place] [employer] Appointment Type:[facility] Evaluation + Plan note Future Appointments Appointment Date:03/01/2024 02:40:00 PM Scheduled Provider:Sara Flood Location:[facility] [place] [employer] Appointment Type:[facility] Evaluation + Plan note Future Appointments Appointment Date:04/11/2024 11:00:00 AM Scheduled Provider:Sara Flood Location:[facility] [place] [facility] Appointment Type:[facility] Evaluation + Plan note Future Appointments Appointment Date:04/22/2024 02:00:00 PM Scheduled Provider: [facility] Type:EMG Unilateral Upper Extremity Appointment Date:05/17/2024 02:00:00 PM Scheduled Provider:Sara Flood Location:[facility] [place] [employer] Appointment Type:[facility] Primary Care Evaluation + Plan note Future Appointments Appointment Date:06/14/2024 02:40:00 PM Scheduled Provider:Sara Flood Location:[facility] – [place] [employer] Appointment Type: Open Future Scheduled TestsComprehensive Metabolic Panel 05/17/24Lipase Level 05/17/24Lipid Panel 05/17/24 [facility] Evaluation + Plan note Future Appointments Appointment Date:07/18/2024 10:40:00 AM Scheduled Provider:Sara Flood Location:[facility] Appointment Type: Open Future Scheduled TestsComprehensive Metabolic Panel 05/17/24Lipase Level 05/17/24Lipid Panel 05/17/24US Abdomen, Limited 06/14/24 [facility] Evaluation + Plan note Future Appointments Appointment Date:06/19/2024 07:00:00 AM Scheduled Provider: Location[facility] Appointment Type:US Abdominal/Pelvis () Appointment Date:07/18/2024 10:40:00 AM Scheduled Provider:Sara Flood Location:[facility] Appointment Type: Open Future Scheduled TestsUS Abdomen, Limited 06/19/24 [facility] Evaluation + Plan note Future Appointments Appointment Date:07/18/2024 10:40:00 AM Scheduled Provider:Sara Flood Location:[facility] Appointment Type: Open [facility] Evaluation note Diagnosis Bipolar affective disorder, mixed, in full remission (HCC)- Primary Bipolar I disorder, most recent episode (or current) mixed, in full remission Insomnia due to mental disorder [facility] Diagnosis Pain of toe of left foot- Primary Contusion of left lesser toe(s) w/o damage to nail, init Verruca plantaris Plantar wart Verruca Viral warts, unspecified [facility] Narrative No data available for this section [facility] Hospital Discharge instructions No data available for this section [facility] Progress note No data available for this section [facility] Summary Purpose Family History No Family [...] for this section No Family History Records Found No data available for this section No Family History Records Found Advance Directives No Advanced Directives Records FoundDocuments on File Type Date Recorded 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 We elected toproceed with the telephone [...] or behavior since she was [place] seenin [place]. She reported work is going well she [...] PM EDT Telephone Visit Via Phone Call [facility] [phone] Telephone Visit [facility] 11/20/2020 Nikki Perez MD Provider Location: [facility] Patient Location Document Controller: None Patient Location: Patient's Home Patient: [place] [...] there are inherent diagnostic limitations compared to cwgq-jv-dyex evaluations. We elected toproceed with the telephone [...] thought process abnormalities are present. We will Belsomrteodoro continues to help her initiate and maintain [...] section and content) DATE CREATED AUTHOR 08/03/2018 [facility] DATE CREATED AUTHOR AUTHOR'S ORGANIZ ATION 02/23/2021 [facility] DATE CREATED AUTHOR AUTHOR'S ORGANIZ ATION 06/27/2021 [facility] DATE CREATED AUTHOR AUTHOR'S ORGANIZ ATION 04/24/2024 [facility] DATE CREATED AUTHOR AUTHOR'S ORGANIZ ATION 04/25/2024 [facility] EPIC DATE CREATED AUTHOR AUTHOR'S ORGANIZ ATION 05/20/2024 [facility] DATE CREATED AUTHOR AUTHOR'S ORGANIZ ATION 06/18/2024 [facility] DATE CREATED AUTHOR AUTHOR'S ORGANIZ ATION 06/27/2024 [facility] Reason for Visit (unrecogniz ed section and content) Reason Comments Medication Management Reason Onset Date Comments Appointment 12/20/2012 Set up appt with Ankur Reason Comments Follow-up Med mgmt Source Comments (unrecognize d section and content) In the event this informatio n is protected by the Federal Confidentiality of Alcohol and Drug Abuse Patient Records regulations: The Federal rules restrict any use of the information to criminally investigate or prosecute any alcohol or drug abuse patient.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 [facility] [employer] provides no warranty or guarantee of the accuracy or completeness of information in this document.
[2024-07-10] MEDS: LIDOCAINE HCL 1% 100 MG/10 ML MDV INJ (22:37)
[2024-07-10] MEDS: 0.9 % SODIUM CHLORIDE 500 ML, LIDOCAINE HCL 20 ML, SODIUM BICARBONATE 10 MEQ INJ (22:38)
== END 2024-07-10 12:37 | disposition home or self-care (01) ==
LOC: VC 09:02
PROVIDERS: PCP Radiology Diagnostic Radiology; Visit Provider Radiology Diagnostic Radiology
DX: I83.813 Varicose veins of bilateral lower extremities with pain (principal)
CPT/HCPCS: 36478

== ENCOUNTER 2024-07-17 10:13 | Outpatient (OUT) | payer BC, SELFPAY ==
--- NOTE | 2024-07-17 10:26 | VEIN_ITS ---
Patient Name: LUIS MANUEL BYERS MR#: [id number] : 1970 Exam Date: 07/17/2024 Ordering Doctor: DR EUGENE AJ M.D. RADIOLOGY REPORT PROCEDURE: VC EXT VENOUS RT LMTD COMPARISON: None. INDICATIONS: I80.01 - Phlebitis and thrombophlebitis of superficial veins right leg TECHNIQUE: Lower extremity castillo scale and Duplex Doppler evaluation of the deep venous system from the inguinal ligament through the calf veins. FINDINGS: REGION: Right lower extremity. THROMBI: Negative for DVT. Heat induced thrombus in right GSV 3.4 mm from SFJ and extends to mid lower leg. COMPRESSIBILITY: Non-compressible segments corresponding to thrombus FLOW: Areas of no flow corresponding to thrombus CONCLUSION: Post ablation occlusion of the right great saphenous vein with heat induced thrombus 3.4 mm from the saphenofemoral junction Dictated by: Eugene Aj MD on 07/17/2024 at 11:08 Approved by: Eugene Aj MD on 07/17/2024 at 11:08
--- NOTE | 2024-07-17 10:26 | VEIN_ITS ---
Patient Name: LUIS MANUEL BYERS MR#: [id number] : 1970 Exam Date: 07/17/2024 Ordering Doctor: DR EUGENE AJ M.D. RADIOLOGY REPORT PROCEDURE: FACILITY EST LMTD VEIN CENTER - OFFICE VISIT FOLLOW UP COMPARISON: None. PROGRESS NOTES: The patient reports no significant problems of the right leg following intravenous laser ablation of the right great saphenous vein. The patient has worn her compression stocking. The patient has tried exercise. The patient did not require oral analgesics. Physical exam demonstrates no bruising. The incision is sealed. Thrombosed right great saphenous vein can be palpated. No erythema or warmth to suggest cellulitis or thrombophlebitis. No active ulceration Review of the ultrasound performed the same day demonstrates occlusive thrombus extending throughout the treated right great saphenous vein. No deep vein thrombus. Heat induced thrombus is 3.4 mm from the saphenofemoral junction however the epigastric vein remains patent. No treatment was recommended to the patient. The patient expressed a desire to proceed with treatment of incompetent left great saphenous vein. VEIN/ Facility EST LMTD IMPRESSION: 1. Successful ablation of the right great saphenous vein. 2. Persistent incompetent left great saphenous vein. PLAN: Intravenous laser ablation left great saphenous vein Nurse notes, history and physical were reviewed and confirmed, see attached forms. The nurse was present throughout the physical exam and consultation Dictated by: Eugene Aj MD on 07/17/2024 at 11:16 Approved by: Eugene Aj MD on 07/17/2024 at 11:22
--- OUTSIDE RECORDS SUMMARY | 2024-07-17 10:43 | XMS_ITS | CCD ---
Author Organization [facility] Care Team Providers Care Machine Marker Name Role Phone Nataprawira, Mariana Unavailable Unavailable Nataprawira, Mariana Unavailable Unavailable Nataprawira, Mariana Unavailable Unavailable No, Physician Primary Care Provider UnavailRaleigh Randolph Primary Care Provider No, Physician Primary Care Provider UnavailNIKKI Olivares Attending Unavailable NO, PHYSICIAN Primary Care Unavailable GEHLOT, UPENDER Attending Unavailable NO, PHYSICIAN Primary Care Unavailable GEDEYVI, UPENDER Attending Unavailable SHONNA, PHYSICIAN Primary Care Unavailable DR ALONDRA AJ V Consulting Unavailable URBANO, DR ALONDRA Brink Attending Unavailable DR ALONDRA AJ V Admitting Unavailable Randa Billy Primary Care Physician Sara Green Primary Care Physician Unallocated, [place] Provider Primary Care Provider Alex Pena Attending Unavailable MIGUEL CAI Attending Unavailable MIGUEL CAI Attending Unavailable GEENA HANSEN Attending Unavailable GEENA HANSEN Attending Unavailable Sara Green Attending Unavailable GEENA HANSEN Admitting [...] Drug Allergy 9 migraines for 2 weeks [facility] Comment on above: Can take Vicodin ES but not regular vicodin Penicillins (antibiotic) (4 sources) Penicillins; Translations: [PENICILLINS] Drug Allergy 3 Rash, Hives [facility] (20 sources) Acetaminophen / HYDROcodone; Translations: [acetaminophen-hy drocodone] Drug Allergy 9 Headache [facility] Comment on above: Can take Vicodin ES but not regular vicodin Can take Vicodin ES but not regular vicodin (20 sources) Penicillins; Translations: [penicillins] Propensity to adverse reactions to drug 3 Hives, Rash [facility] (2 sources) Penicillin G Drug Allergy 3 [facility] (4 sources) Acetaminophen / HYDROcodone; Translations: [Vicodin] Drug Allergy [facility] Repository Medications Current Medications Medication Drug Class(es) Dates Sig (Normalized) Sig (Original) 0.5 ML semaglutide 0.5 MG/ML Auto-Injector [Wegovy] (5 sources) Start: 04-12-2024 inject 0.25 mg by subcutaneous injection every week Wegovy (0.25 mg dose) subcutaneous solution 0.25 mg, SubCutaneous, qWeek, # 4 EA, Refills(s) 0, Pharmacy: [facility], 171.5, cm, 04/12/24 10:56:00 EDT, Height/Length Dosing, 83.9, kg, 04/12/24 10:56:00 EDT, Weight Dosing Start Date: 04/12/24 Status: Ordered acetaminophen 500 mg oral tablet (18 sources) Start: 01-26-2023 take 1 tablet by [...] day(s), # 42 cap(s), Refills(s) 0, Pharmacy: [facility], 170, cm, 05/17/22 16:44:00 EDT, Height/Length Dosing, 90.1, kg, 05/17/22 16:44:00 EDT, Weight Dosing Start Date: 05/17/22 Stop Date: 05/31/22 Status: Ordered betamethasone 0.001 mg/mg topical ointment (4 sources) Corticosteroid Start: 08-17-2023 betamethasone Top valerate 0.1% Oint 1 codie, Topical, BID, 45 gram, Refill(s) 0, cover with tegaderm/ telfa to affected area, [facility], 171.5, cm, 08/17/23 13:03:00 EST, Height/Length Dosing, 89.1, kg, 08/17/23 13:03:00 EST, Weight Dosing Start Date: 08/17/23 Status: Ordered 12 hr buPROPion hydrochloride 150 mg extended release oral tablet (8 sources) Aminoketone Start: 03-01-2024 take 1 tablet by mouth twice daily Wellbutrin SR 150 mg Tab-ER 150 mg = 1 tab(s), Oral, BID, # 60 tab(s), Refills(s) 1, Pharmacy: [facility], 171.5, cm, 03/01/24 15:06:00 EDT, Height/Length Dosing, 84.5, kg, 03/01/24 15:06:00 EDT, Weight Dosing Start Date: 03/01/24 Status: Ordered Start: 01-31-2024 take 1 tablet by diana th once daily Wellbutrin SR 150 mg Tab-ER 150 mg = 1 tab(s), Oral, Daily, # 30 tab(s), Refills(s) 0, Pharmacy: [facility], 171.5, cm, 01/31/24 11:29:00 EDT, Height/Length Dosing, 84.6, kg, 01/31/24 11:29:00 EDT, Weight Dosing Start Date: 01/31/24 Status: Ordered Start: 08-17-2023 Wellbutrin SR 150 mg Tab-ER 150 mg = 1 tab(s), Oral, BID, once a day x 1 month then increased, # 180 tab(s), Refills(s) 0, Pharmacy: [facility], 171.5, cm, 08/17/23 13:03:00 EST, Height/Length [...] q12hr, # 20 cap(s), Refills(s) 0, Pharmacy: [facility], 170, cm, 06/08/22 11:55:00 EDT, Height/Length Dosing, 88.8, kg, 06/08/22 11:55:00 EDT, Weight Dosing Start Date: 06/08/22 Status: Ordered clindamycin 300 mg oral capsule (1 source) Lincosamide Antibacterial Start: 01-13-2023 End: 01-20-2023 take 1 capsule by mouth every six hours clindamycin 300 mg oral cap 300 mg = 1 cap(s), Oral, q6hr, X 7 day(s), # 28 cap(s), Refills(s) 0, Pharmacy: [facility], 170, cm, 01/04/23 11:46:00 EDT, Height/Length [...] cough and congestion, 120 mL, Refill(s) 0, [facility], 170, cm, 05/17/22 16:44:00 EDT, Height/Length [...] day(s), # 14 tab(s), Refills(s) 0, Pharmacy: [facility], 170, cm, 12/23/21 16:48:00 EDT, Height/Length Dosing, 88, kg, 12/23/21 16:48... Start Date: 12/23/21 Stop Date: 12/30/21 Status: Ordered Fish Oils (8 sources) Start: 01-31-2024 take 1 tablet by mouth once daily [place]-3 Fish Oil 1 tab, Oral, Daily, Refills(s) 0 Start Date: 01/31/24 Status: Ordered fluticasone propionate 0.05 mg/actuat metered dose nasal spray (20 sources) Corticosteroid Start: 06-14-2024 Flonase 0.05 mg/inh [place] 2 spray(s), Nasal, Daily, 16 gram, Refill(s) 4, each nostril, [facility], 171, cm, 06/14/24 15:03:00 EST, Height/Length Dosing, 78.5, kg, 06/14/24 15:03:00 EST, Weight Dosing Start Date: 06/14/24 Status: Ordered Start: 01-04-2023 Flonase 0.05 m g/inh [place] 2 spray(s), Nasal, Daily, 16 gram, Refill(s) 0, each nostril, [facility], 170, cm, 01/04/23 11:46:00 EDT, Height/Length Dosing, 87.5, kg, 01/04/23 11:46:00 EDT, Weight Dosing Start Date: 01/04/23 Status: Ordered Start: 05-17-2022 take 1 spray(s) nasa l route twice daily fluticasone 0.05 mg/inh Nasal [place] 1 spray(s), Nasal, BID, 16 gram, Refill(s) 0, each nostril, [facility], 170, cm, 05/17/22 16:44:00 EDT, Height/Length Dosing, 90.1, kg, 05/17/22 16:44:00 EDT, Weight Dosing Start Date: 05/17/22 Status: Ordered Start: 09-22-2021 take 1 spray(s) nasa l route twice daily fluticasone 0.05 mg/inh Nasal [place] 1 spray(s), Nasal, BID, 16 gram, Refill(s) 0, each nostril, [facility], 170, cm, 09/22/21 11:38:00 EST, Height/Length Dosing, 87.3, kg, 09/22/21 11:38:00 EST, Weight Dosing Start Date: 09/22/21 Status: Ordered fluticasone 0.05 mg/inh Nasal [place] (5 sources) Start: 05-17-2022 take 1 spray(s) nasal route twice daily fluticasone 0.05 mg/inh Nasal [place] 1 spray(s), Nasal, BID, 16 gram, Refill(s) 0, each nostril, [facility], 170, cm, 05/17/22 16:44:00 EDT, Height/Length Dosing, 90.1, kg, 05/17/22 16:44:00 EDT, Weight Dosing Start Date: 05/17/22 Status: Ordered Start: 09-22-2021 take 1 spray(s) nasa l route twice daily fluticasone 0.05 mg/inh Nasal [place] 1 spray(s), Nasal, BID, 16 gram, Refill(s) 0, each nostril, [facility], 170, cm, 09/22/21 11:38:00 EST, Height/Length [...] Daily, # 180 tab(s), Refills(s) 0, Pharmacy: [facility], 170, cm, 03/19/20 13:46:00 EDT, Height/Length [...] Daily, # 180 tab(s), Refills(s) 3, Pharmacy: [facility], 171.5, cm, 01/31/24 11:29:00 EDT, Height/Length Dosing, 84.6, kg, 01/31/24 11:29:00 EDT, Weight Dosing Start Date: 02/07/24 Status: Ordered Start: 02-07-2024 take 1 tablet by diana th twice daily losartan 50 mg Tab 50 mg = 1 tab(s), Oral, BID, # 180 tab(s), Refills(s) 3, Pharmacy: [facility], 171.5, cm, 01/31/24 11:29:00 EDT, Height/Length Dosing, 84.6, kg, 01/31/24 11:29:00 EDT, Weight Dosing Start Date: 02/07/24 Status: Ordered Start: 10-06-2023 take 1 tablet by diana twice daily losartan 50 mg Tab 50 mg = 1 tab(s), Oral, BID, # 180 tab(s), Refills(s) 0, Pharmacy: [facility], 171.5, cm, 08/31/23 13:49:00 EST, Height/Length Dosing, 86.3, kg, 08/31/23 13:49:00 EST, Weight Dosing Start Date: 10/06/23 Status: Ordered Start: 07-18-2023 take 1 tablet by [facility] once daily losartan 25 mg Tab 25 mg = 1 tab(s), Oral, Daily, # 90 tab(s), Refills(s) 0, Pharmacy: [facility], 171.5, cm, 01/26/23 12:01:00 EDT, Height/Length Dosing, 86.8, kg, 01/26/23 12:01:00 EDT, Weight Dosing Start Date: 07/18/23 Status: Ordered Start: 03-05-2020 End: 03-18-2023 take 1 tablet by mouth once daily losartan 25 mg Tab 25 mg = 1 tab(s), Oral, Daily, # 90 tab(s), Refills(s) 3, Pharmacy: [facility], 170, cm, 05/17/22 16:44:00 EDT, [...] supper, # 90 tab(s), Refills(s) 1, Pharmacy: [facility], 170, cm, 03/19/20 13:46:00 EDT, Height/Length Dosing, 76.5, kg, 03/19/20 13:46:00 EDT, Weight Dosing Start Date: 05/15/20 Status: Ordered methylPREDNISolone 4 mg oral tablet (2 sources) Corticosteroid Start: 03-01-2024 End: 03-07-2024 Medrol 4 mg Tab = 1 packet(s), Oral, As Directed, as directed on package labeling, X 6 day(s), # 21 tab(s), Refills(s) 0, Pharmacy: [facility], 171.5, cm, 03/01/24 15:06:00 EDT, Height/Length Dosing, 84.5, kg, 03/01/24 15:06:00 EDT, Weight Dosing Start Date: 03/01/24 Stop Date: 03/07/24 Status: Ordered Start: 01-31-2024 End: 02-06-2024 Medrol 4 mg Tab = 1 packet(s ), Oral, As Directed, as directed on package labeling, X 6 day(s), # 21 tab(s), Refills(s) 0, Pharmacy: [facility], 171.5, cm, 01/31/24 11:29:00 EDT, Height/Length [...] Daily, # 60 cap(s), Refills(s) 0, Pharmacy: [facility], 171.5, cm, 01/31/24 11:29:00 EDT, Height/Length Dosing, 84.6, kg, 01/31/24 11:29:00 EDT, Weight Dosing Start Date: 01/31/24 Status: Ordered naproxen 500 mg oral tablet (20 sources) Nonsteroidal Anti-inflammatory Drug Start: 01-31-2024 naproxen 500 mg Tab 500 mg = 1 tab(s), Oral, BID, take 14 days BID ., # 60 tab(s), Refills(s) 0, Pharmacy: [facility], 171.5, cm, 01/31/24 11:29:00 EDT, Height/Length [...] day, # 14 tab(s), Refills(s) 0, Pharmacy: [facility], 170, cm, 09/22/21 11:38:00 EST, Height/Length Dosing, 82, kg, 10/04/21 11:38:00 EST, Weight Dosing Start Date: 10/04/21 Status: Ordered take 1 capsule by mo [facility] in the morning Naproxen Sodium 220 MG capsule Take 1 capsule by mouth in the morning. 0 Active ondansetron 4 mg disintegrating oral tablet (5 sources) Serotonin-3 Receptor Antagonist Start: 05-17-2024 take 1 tablet by mouth every six hours as needed for nausea ondansetron 4 mg Dis Tab 4 mg = 1 tab(s), Oral, q6hr, PRN Nausea/Vomiting, # 12 tab(s), Refills(s) 0, Pharmacy: [facility], 171.5, cm, 05/17/24 14:17:00 EDT, Height/Length Dosing, 79.1, kg, 05/17/24 14:17:00 EDT, Weight Dosing Start Date: 05/17/24 Status: Ordered Start: 04-12-2024 take 1 tablet by diana every six hours as needed for nausea Zofran 4 mg Tab 4 mg = 1 tab(s), Oral, q6hr, PRN Nausea, # 30 tab(s), Refills(s) 0, Pharmacy: [facility], 171.5, cm, 04/12/24 10:56:00 EDT, Height/Length [...] days., # 30 tab(s), Refills(s) 0, Pharmacy: [facility], 171.5, cm, 08/31/23 13:49:00 EST, Height/Length Dosing, 86.3, kg, 08/31/23 13:49:00 EST, Weight Dosing Start Date: 08/31/23 Status: Ordered rimegepant 75 mg disintegrating oral tablet (17 sources) Start: 01-04-2023 Nurtec ODT 75 mg [...] tab(s), Refills(s) 1, Pharmacy: [facility] 170, cm, 03/19/20 13:46:00 [...] Onset: 12-13-2012 12-13-2012 Chronic Malaise and fatigue (9 sources) Fatigue; Translations: [Other fatigue] Onset: 07-28-2023 [...] hand 01-31-2024 Episodic Other upper respiratory disease (19 sources) Seasonal allergy; Translations: [Other seasonal allergic rhinitis] Onset: 02-12-2023 01-17-2023 Chronic Other upper respiratory infections (16 sources) Sinusitis; Translations: [Chronic sinusitis] Onset: 12-23-2021 [...] Chronic Other ear and sense organ disorders (8 sources) Pain of ear structure; Translations: [Otalgia, [...] MD Transcribed by: NOREEN Technologist: JOSE Robison [facility] CHEMISTRYOrdered By: SYSTEM SYSTEM on 06-17-2024 Albumin [...] 06-17-2024 Albumin [Mass/Vol] 4.9 g/dL Normal 3.3-5.0 [facility] Comment on above: Performed By: #### 2 [id number] #### [facility] [address] [place] [address] Albumin/Globulin (S) [Mass conc ratio] 2.0 Normal 1.1-2.2 [facility] Comment on above: Performed By: #### 2 [id number] #### [facility] [address] [place] [address] ALP [Catalytic activity/Vol] 96 Int._Unit/L Normal 21-98 [facility] Comment on above: Performed By: #### 2 [id number] #### [facility] [address] [place] [address] ALT No additional P-5'-P [Catalytic activity/Vol] 21 Int._Unit/L Normal 6-46 [facility] Comment on above: Performed By: #### 2 [id number] #### [facility] [address] [place] [address] Anion gap [Moles/Vol] 9 mmol/L Normal 6-16 [facility] Comment on above: Performed By: #### 2 [id number] #### [facility] [address] [place] [address] AST [Catalytic activity/Vol] 24 Int._Unit/L Normal 5-43 [facility] Comment on above: Performed By: #### 2 [id number] #### [facility] [address] [place] [address] Bilirubin [Mass/Vol] 0.5 mg/dL Normal 0.0-1.1 [facility] Comment on above: Performed By: #### 2 [id number] #### [facility] [address] [place] [address] Calcium [Mass/Vol] 10.2 mg/dL Normal 8.9-11.1 [facility] Comment on above: Performed By: #### 2 [id number] #### [facility] [address] [place] [address] Chloride [Moles/Vol] 105 mmol/L Normal 101-111 [facility] Comment on above: Performed By: #### 2 [id number] #### [facility] [address] [place] [address] CO2 [Moles/Vol] 30 mmol/L Normal 21-31 [facility] Comment on above: Performed By: #### 2 [id number] #### [facility] [address] [place] [address] Creatinine [Mass/Vol] 0.8 mg/dL Normal 0.5-1.3 [facility] Comment on above: Performed By: #### 2 [id number] #### [facility] [address] [place] [address] Globulin (S) [Mass/Vol] 2.5 g/dL Normal 1.4-4.0 [facility] Comment on above: Performed By: #### 2 [id number] #### [facility] [address] [place] [address] Glucose [Mass/Vol] 98 mg/dL Normal 55-199 [facility] Comment on above: Performed By: #### 2 [id number] #### [facility] [address] [place] [address] Potassium [Moles/Vol] 3.9 mmol/L Normal 3.5-5.3 [facility] Comment on above: Performed By: #### 2 [id number] #### [facility] [address] [place] [address] Protein [Mass/Vol] 7.4 g/dL Normal 6.0-7.8 [facility] Comment on above: Performed By: #### 2 [id number] #### [facility] [address] [place] [address] Sodium [Moles/Vol] 140 mmol/L Normal 135-145 [facility] Comment on above: Performed By: #### 2 [id number] #### [facility] [address] [place] [address] Urea nitrogen [Mass/Vol] 10 mg/dL Normal 5-21 [facility] Comment on above: Performed By: #### 2 [id number] #### [facility] [address] [place] [address] Urea nitrogen/Creatinine [Mass ratio] 12 No Units Normal 10-20 [facility] Comment on above: Performed By: #### 2 [id number] #### [facility] [address] [place] [address] Lipase Levelon 06-17-2024 Lipase [Catalytic activity/Vol] 22 U/L Normal 13-58 [facility] Comment on above: Performed By: #### 2 [id number] #### [facility] [address] [place] [address] Lipid Panelon 06-17-2024 Cholesterol [Mass/Vol] 237 mg/dL High 120-200 [facility] Comment on above: Performed By: #### 2 [id number] #### [facility] [address] [place] [address] Cholesterol in HDL [Mass/Vol] 61 mg/dL Invalid Interpretation Code [facility] Comment on above: Result Comment: '>= 60 LOW RISK' '<= 40 HIGH RISK' Performed By: #### 2 [id number] #### [facility] [address] [place] [address] Cholesterol in LDL [Mass/Vol] 141 mg/dL High <=129 [facility] Comment on above: Performed By: #### 2 [id number] #### [facility] [address] [place] [address] Cholesterol in VLDL [Mass/Vol] 22 mg/dL Normal 7-40 [facility] Comment on above: Performed By: #### 2 [id number] #### [facility] [address] [place] [address] Triglyceride [Mass/Vol] 112 mg/dL Normal <=149 [facility] Comment on above: Performed By: #### 2 [id number] #### [facility] [address] [place] [address] eGFRon 06-17-2024 eGFR 88 mL/min/1.73 m2 Normal >=59 [facility] Comment on above: Performed By: #### 1 [id number] #### [facility] [address] [place] [address] Ambulatory Visit Summaryon 08-14-2023 Ambulatory Visit Summary [...] Medications List fluticasone nasal (Flonase 0.05 mg/inh [place]) Contact prescribing physician if questions or concerns [...] 500 mg Tab) omega-3 polyunsaturated fatty acids ([place]-3 Fish Oil) ondansetron (ondansetron 4 mg Dis [...] EST With: Peter DAVISON, Sara Cueva Where: [facility] [address] [place] [address]- You Need to Complete the Following US Abdomen, Limited, 06/14/24, Routine, Order for future visit, Transport Mode: Ambulatory, Reason: Abnormal CT, No, Elevated lipase Nausea Liver cyst, pp_set_radiology_subsp ecialty, [facility] Medications What How Much When Why Instructions Unchanged fluticasone nasal (Flonase 0.05 mg/ inh [place]) 2 Sprays Nasal Inhalation Every day Left otitis media Fluid level behind tympanic membrane of both ears BMI 30.0-30.9,adult each nostril Pickup at [facility] Unchanged acetaminophen (Tylenol Extra Strength 500 [...] or concerns Unchanged omega-3 polyunsaturated fatty acids ([place]-3 Fish Oil) 1 tab By Mouth Every [...] (at bedtim (more content not included)... Normal [facility] Family Medicine Office/Clini c Noteon 06-14-2024 Family Medicine Office/Clinic Note Family Medicine Office/Clinic Note Chief Complaint 1 month f/u HPI Staff pt in office today for 1 mth f/u of elevated Lipase History of Present Illness Patient is irritated today- her back is hurting today, at work yesterday- she is in the online [employer], she works all weekend. Down 2 [...] requesting a refill of semaglutide sent to [facility] locally patient would like to advance to [...] Daily, 16 gram, Refill(s) 4, each nostril, [facility], 171, cm, 06/14/24 15:03:00 EST, Height/Length Dosing, 78.5, kg, 06/14/24 15:03:00 EST, Weight Dosing Fluid level behind tympanic membrane of both ears (H65.93: Unspecified nonsuppurative otitis media, bilateral) Ordered: fluticasone nasal, 2 spray(s), Nasal, Daily, 16 (more content not included)... Normal [facility] Comment on above: Result Comment: Elec tronically [...] oral tablet) fluticasone nasal (Flonase 0.05 mg/inh [place]) hydrOXYzine (hydrOXYzine hydrochloride 25 mg Tab) lamotrigine (lamotrigine 200 mg Tab) losartan (losartan 50 mg Tab) multivitamin (Multi Vitamin+) naproxen (naproxen 500 mg Tab) omega-3 polyunsaturated fatty acids ([place]-3 Fish Oil) oxcarbazepine (Trileptal 300 mg Tab) [...] hours as needed for Nausea/Vomiting Pickup at [facility] Unchanged acetaminophen (Tylenol Extra Strength 500 [...] Unchanged fluticasone nasal (Flonase 0.05 mg/ inh [place]) 2 Sprays Nasal Inhalation Every day Left [...] or concerns Unchanged omega-3 polyunsaturated fatty acids ([place]-3 Fish Oil) 1 tab By Mouth Every [...] Onc (more content not included)... Normal [facility] Family Medicine Office/Clini c Noteon [...] pain is much improved. moved departments at [employer] and not lift as heavy [...] supplementation a (more content not included)... Normal [facility] Comment on above: Result Comment: Elec tronically Signed By: Sara Flood\.br\Date and Time Signed: 05/17/24 15:08 EDT EMS Documentationon 04-27-20 EMS Documentation Report Please click on link to see report Normal [facility] Comment on above: Result Comment: Miss ing [...] 100 Rectal Contrast Given? No Normal [facility] ED Note-Physicianon 04-23-20 ED Note-Physician ED Note-Physician Basic Information Time Seen: Gayle Escalante PA-C 04/22/2024 18:58 Chief Complaint Pt arrived via [facility] after having an episode of abdominal pain. [...] a prescr (more content not included)... Normal [facility] Comment on above: Result Comment: Elec tronically Signed By: Gayle Escalante PA-C\.br\Date and Time Signed: 04/22/24 23:31 EDT\.br\Electronically Co-Signed By: Aron Echevarria DO\.br\Date and Time Co-Signed: 04/23/24 00:00 EDT BMPon 04-22-2024 Anion gap [Moles/Vol] 12 mmol/L Normal 6-16 [facility] Comment on above: Performed By: #### 2 [id number] #### [facility] [address] [place] [address] Calcium [Mass/Vol] 9.9 mg/dL Normal 8.9-11.1 [facility] Comment on above: Performed By: #### 2 [id number] #### [facility] [address] [place] [address] Chloride [Moles/Vol] 103 mmol/L Normal 101-111 [facility] Comment on above: Performed By: #### 2 [id number] #### [facility] [address] [place] [address] CO2 [Moles/Vol] 24 mmol/L Normal 21-31 [facility] Comment on above: Performed By: #### 2 [id number] #### [facility] [address] [place] [address] Creatinine [Mass/Vol] 0.7 mg/dL Normal 0.5-1.3 [facility] Comment on above: Performed By: #### 2 [id number] #### [facility] [address] [place] [address] Glucose [Mass/Vol] 118 mg/dL Normal 55-199 [facility] [facility] Comment on above: Performed By: #### 2 [id number] #### [facility] [address] [place] [address] Potassium [Moles/Vol] 3.4 mmol/L Low 3.5-5.3 [facility] Comment on above: Performed By: #### 2 [id number] #### [facility] [address] [place] [address] Sodium [Moles/Vol] 136 mmol/L Normal 135-145 [facility] Comment on above: Performed By: #### 2 [id number] #### [facility] [address] [place] [address] Urea nitrogen [Mass/Vol] 15 mg/dL Normal 5-21 [facility] Comment on above: Performed By: #### 2 [id number] #### [facility] [address] [place] [address] Urea nitrogen/Creatinine [Mass ratio] 21 No Units High 10-20 [facility] Comment on above: Performed By: #### 2 [id number] #### [facility] [address] [place] [address] CBC w/ Auto Diffon 4 Basophils/100 WBC (Bld) 0.4 % Normal 0.0-2.0 [facility] Comment on above: Performed By: #### 2 [id number] #### [facility] [address] [place] [address] Basophils/Leukocytes Auto (Bld) [Pure # fraction] 0.0 E9/L Normal 0.0-0.2 [facility] Comment on above: Performed By: #### 2 [id number] #### [facility] [address] [place] [address] Eosinophils (Bld) [#/Vol] 0.1 E9/L Normal 0.0-0.5 [facility] Comment on above: Performed By: #### 2 [id number] #### [facility] [address] [place] [address] 0001[address] Eosinophils/100 WBC (Bld) 0.8 % Normal 0.0-8.0 [facility] Comment on above: Performed By: #### 2 [id number] #### [facility] [address] [place] [address] Erythrocyte distribution width (RBC) [Ratio] 13.0 % Normal 10.9-14.2 [facility] Comment on above: Performed By: #### 2 [id number] #### [facility] [address] [place] [address] Hematocrit (Bld) [Volume fraction] 37.2 % Normal 34.0-46.0 [facility] Comment on above: Performed By: #### 2 [id number] #### [facility] [address] [place] [address] Hemoglobin (Bld) [Mass/Vol] 13.2 g/dL Normal 12.0-16.0 [facility] Comment on above: Performed By: #### 2 [id number] #### [facility] [address] [place] [address] Lymphocytes (Bld) [#/Vol] 1.6 E9/L Normal 1.0-4.0 [facility] Comment on above: Performed By: #### 2 [id number] #### [facility] [address] [place] [address] Lymphocytes/100 WBC (Bld) 15.8 % Normal 14.0-50.0 [facility] Comment on above: Performed By: #### 2 [id number] #### [facility] [address] [place] [address] MCH (RBC) [Entitic mass] 33.2 pg Normal 27.0-34.0 [facility] Comment on above: Performed By: #### 2 [id number] #### [facility] [address] [place] [address] MCHC (RBC) [Mass/Vol] 35.6 g/dL Normal 31.4-36.0 [facility] Comment on above: Performed By: #### 2 [id number] #### [facility] [address] [place] [address] MCV (RBC) [Entitic vol] 93.3 fL Normal 80.0-100.0 [facility] Comment on above: Performed By: #### 2 [id number] #### [facility] [address] [place] [address] Monocytes (Bld) [#/Vol] 0.8 E9/L Normal 0.2-1.0 [facility] Comment on above: Performed By: #### 2 638362 #### [facility] [address] [place] [address] Neutrophils (Bld) [#/Vol] 7.5 E9/L Normal 2.0-7.5 [facility] Comment on above: Performed By: #### 2 820562 #### [facility] [address] [place] [address] Neutrophils/100 WBC (Bld) 74.8 % Normal 36.0-75.0 [facility] Comment on above: Performed By: #### 2 887180 #### [facility] [address] [place] [address] Platelet mean volume (Bld) [Entitic vol] 7.3 fL Normal 6.4-10.8 [facility] Comment on above: Performed By: #### 2 [id number] #### [facility] [address] [place] [address] Platelets (Bld) [#/Vol] 237.0 E9/L Normal 150.0-500.0 [facility] Comment on above: Performed By: #### 2 786687 #### [facility] [address] [place] [address] RBC (Bld) [#/Vol] 4.0 E12/L Low 4.3-5.9 [facility] Comment on above: Performed By: #### 2 477375 #### [facility] [address] [place] [address] WBC corrected for nucl RBC Auto (Bld) [#/Vol] 10.0 E9/L Normal 4.0-11.0 [facility] Comment on above: Performed By: #### 2 [id number] #### [facility] [address] [place] [address] ED Clinical Summaryon 2023 ED Clinical Summary ED Clinical Summary [address] [address] ED Clinical Summary Person Information Name: SAVANAH BYERS [place] Age: 53 Years : 1970 Sex: Female Language: Turkmen PCP: Sara Flood Marital Status: Visit Id: [...] 22:57:09 04/22/2024 22:57:09 04/22/2024 22:57:09 ADDRESS: [address] [facility] [id number] PHYS DOC NOTES: MEDICAL INFORMATION: Prescriptions Given: Medications to Continue Taking That Have Changed [facility], [address] [place], [place] [id number], [phone] START: ondansetron (ondansetron 4 mg Dis Tab) [...] every day. fluticasone nasal (Flonase 0.05 mg/inh [place]) 2 Sprays Nasal Inhalation every day. each [...] .. Refills: 0. omega-3 polyunsaturated fatty acids ([place]av[place]-3 Fish Oil) 1 tab By Mouth every day. oxcarbazepine (Trileptal 300 mg Tab) 1.5 tab(s) Oral Bedtime. rimegepant (Nurtec ODT 75 mg oral tablet, disintegrating) semaglutide (Wegovy (0.25 mg dose) subcutaneous solution) 0.25 Milligram Subcutaneous every week. Refills: 0. suvorexant (Belsomra 20 mg oral tablet) 1 Tablets By Mouth once a day (at bedtime). g47.0. Refills: 1. PATIENT EDUCATION INFORMATION: Instructions: Nausea, Adult, Xpch-bl-Jylo; Abdominal Pain, Adult, Hpls-bi-Tbba Follow up: With: Address: When: Sara Green [address], [address], [address] [address] Business (1) In 3 days 04/25/2024 DIAGNOSIS: 1:Nausea in adult; 2:Abdominal pain of unknown etiology Normal [facility] ED Patient Summaryon 024 ED Patient Summary ED Patient Summary [address] [address] Patient Discharge Instructions Person Information Name: SAVANAH BYERS Age: 53 Years Arrival Date: 04/22/2024 18:34:34 Discharge Diagnosis: 1:Nausea in adult; 2:Abdominal pain of unknown etiology Primary Care Physician: Sara Flood Provider Information Primary Provider: Aron Echevarria DO Advanced Operations Lieutenant:None The exam and treatment you received in the Emergency Department were for an urgent problem and are not intended as complete care. It is important that you follow up with a doctor, nurse practitioner, or physician?s physician office assistant for ongoing care. If your symptoms [...] Sara Green [address], [address], [address] [address] Business (1) In 3 days 04/25/2024 In the event that this physician does not participate in your insurance network, please consult with your insurance company to find a nearby participating provider. Patient Education Materials: Nausea, Adult, Vexj-bs-Nhxz; Abdominal Pain, Adult, Zbqe-qj-Suam A MESSAGE TO ALL PATIENTS REGARDING OPIOIDS PRESCRIPTION OPIOIDS: WHAT YOU NEED TO KNOW Prescription opioids can be used to help relieve pgiicmyq-wk-hqmgzg pain and are often prescribed following a [...] health care (more content not included)... Normal [facility] Hep Func Panelon 04-22-2024 Albumin [Mass/Vol] 4.7 g/dL Normal 3.3-5.0 [facility] Comment on above: Performed By: #### 2 [id number] #### [facility] [address] [place] [address] Albumin/Globulin (S) [Mass conc ratio] 1.7 Normal 1.1-2.2 [facility] Comment on above: Performed By: #### 2 [id number] #### [facility] [address] [place] [address] ALP [Catalytic activity/Vol] 103 Int._Unit/L High 21-98 [facility] Comment on above: Performed By: #### 2 [id number] #### [facility] [address] [place] [address] ALT No additional P-5'-P [Catalytic activity/Vol] 34 Int._Unit/L Normal 6-46 [facility] Comment on above: Performed By: #### 2 622166 #### [facility] [address] [place] [address] AST [Catalytic activity/Vol] 38 Int._Unit/L Normal 5-43 [facility] Comment on above: Performed By: #### 2 [id number] #### [facility] [address] [place] [address] Bilirubin [Mass/Vol] 0.5 mg/dL Normal 0.0-1.1 [facility] Comment on above: Performed By: #### 2 [id number] #### [facility] [address] [place] [address] Bilirubin.direct [Mass/Vol] 0.1 mg/dL Normal 0.0-0.4 [facility] Comment on above: Performed By: #### 2 467381 #### [facility] [address] [place] [address] Bilirubin.indirect [Mass or moles/Vol] 0.4 mg/dL Normal 0.1-0.9 [facility] Comment on above: Performed By: #### 2 568306 #### [facility] [address] [place] [address] Globulin (S) [Mass/Vol] 2.8 g/dL Normal 1.4-4.0 [facility] Comment on above: Performed By: #### 2 [id number] #### [facility] [address] [place] [address] Protein [Mass/Vol] 7.5 g/dL Normal 6.0-7.8 [facility] Comment on above: Performed By: #### 2 [id number] #### [facility] [address] [place] [address] Lactic Acidon 04-22-2024 Lactic Acid Lvl 1.6 mmol/L Normal 0.5-2.2 [facility] Comment on above: Performed By: #### 2 352676 #### [facility] [address] [place] [address] Lipase Levelon 04-22-2024 Lipase [Catalytic activity/Vol] 187 U/L High 13-58 [facility] Comment on above: Performed By: #### 2 [id number] #### [facility] [address] [place] [address] PT & PTTon 04-22-2024 aPTT Coag (PPP) [Time] 30.7 second(s) Normal 25.1-36.5 [facility] Comment on above: Result Comment: Para meter [...] the same coagulation reagent and instrumentation as [facility]. Currently there are no coagulation studies available worldwide for children to 14 days, and no normal ranges. Heparin therapeutic range (represented by Anti-Factor Xa activity of 0.2 - 0.4 U/mL) corresponds to PTT of 56.6 - 109.0 sec. Performed By: #### 1 [id number] #### [facility] [address] [place] [address] INR Coag (PPP) [Relative time] 0.99 {INR} Invalid Interpretation Code [facility] Comment on above: Result Comment: INR results are specifically intended to assess patients stabilized on long-term Anticoagulation therapy suggested INR?s ?Less Intensive Anticoagulation? 2.0 ? 3.0 Conventional Range 3.0 ? 4.5 Performed By: #### 1 [id number] #### [facility] [address] [place] [address] PT Coag (PPP) [Time] 11.1 second(s) Normal 9.4-12.5 [facility] Comment on above: Result Comment: 15 d [...] the same coagulation reagent and instrumentation as [facility]. Currently there are no coagulation studies available worldwide for children to 14 days, and no normal ranges. Performed By: #### 1 [id number] #### [facility] [address] [place] [address] Pre-Arrival Noteon Pre-Arrival Note Pre-Arrival Note Pre-Arrival Summary Name: manuel Current Date: 04/22/2024 18:35:11 EDT Gender: Female Date of : Age: 53 Pre-Arrival Type: EMS ETA: 04/22/2024 18:56:00 EDT Primary Care Physician: Presenting Problem: Pre-Arrival User: Deneen Dumont RN Referring Source: Location: [place] Completion Date/Time: 04/22/2024 18:26:00 [facility] Emergency Department Pre-Hospital Report Form Vital Signs: Pre-Hospital Report: Treatment in Route: Response to Treatment: Misc. Issues: Normal [facility] Troponin 0 Hr.on 04-22-2024 Troponin HS 2.80 pg/mL Low 10.10-27.10 [facility] Comment on above: Result Comment: The 95% CI (Confidence Interval) PPV (Positive Predictive Value) for myocardial infarction in females is 38 pg/mL, in males 51 pg/mL. The results should be used in conjunction with clinical conditions of myocardial infarction. (Access High Sensitivity Troponin I Instructions For Use, Zoila En, March 2018) Performed By: #### 1 [id number] #### [facility] [address] [place] [address] Troponin 1 Hr.on 04-22-2024 Troponin HS 2.70 pg/mL Low 10.10-27.10 [facility] Comment on above: Order Comment: Due a t 21:00 Result Comment: The 95% CI (Confidence Interval) PPV (Positive Predictive Value) for myocardial infarction in females is 38 pg/mL, in males 51 pg/mL. The results should be used in conjunction with clinical conditions of myocardial infarction. (Access High Sensitivity Troponin I Instructions For Use, Zoila En, March 2018) Performed By: #### 1 [id number] #### [facility] [address] [place] [address] U BetaHcg Qualon 04-22-2024 HCG.beta subunit (U) [Moles/Vol] Negative Normal [facility] Comment on above: Performed By: #### 2 [id number] #### [facility] [address] [place] [address] UA with Cult Rflxon 04-22-20 24 Bilirubin Ql (U) Negative Normal Negative [facility] Comment on above: Performed By: #### 4 [id number] #### [facility] [address] [place] [address] Clarity (U) Clear Normal Clear [facility] Comment on above: Performed By: #### 4 [id number] #### [facility] [address] [place] [address] Color (U) Light-Yellow Normal Yellow [facility] Comment on above: Result Comment: Micr oscopic readings are only performed on those samples that meet specific criteria set forth by [facility]. Performed By: #### 4 [id number] #### [facility] [address] [place] [address] Epithelial cells.squamous Auto (Urine sed) [#/Area] 0-2 Invalid Interpretation Code [facility] Comment on above: Performed By: #### 4 [id number] #### [facility] [address] [place] [address] Glucose Ql (U) Negative Normal Negative [facility] Comment on above: Performed By: #### 4 [id number] #### [facility] [address] [place] [address] Hemoglobin Auto test strip (U) [Mass/Vol] 2+ mg/dL Abnormal Negative [facility] Comment on above: Performed By: #### 4 [id number] #### [facility] [address] [place] [address] Ketones Auto test strip Ql (U) Negative Normal Negative [facility] Comment on above: Performed By: #### 4 [id number] #### [facility] [address] [place] [address] Leukocyte esterase Auto test strip Ql (U) Negative Normal Negative [facility] Comment on above: Performed By: #### 4 [id number] #### [facility] [address] [place] [address] Mucus Auto Ql (U) Trace Normal Negative [facility] Comment on above: Performed By: #### 4 [id number] #### [facility] [address] [place] [address] Nitrite Auto test strip Ql (U) Negative Normal Negative [facility] Comment on above: Performed By: #### 4 [id number] #### [facility] [address] [place] [address] pH (U) 6.0 [pH] Invalid Interpretation Code 5.0-9.0 [facility] Comment on above: Performed By: #### 4 [id number] #### [facility] [address] [place] [address] Protein Ql (U) Negative Normal Negative [facility] Comment on above: Performed By: #### 4 [id number] #### [facility] [address] [place] [address] RBC Ql (U) 4-20 Abnormal 0-3 [facility] Comment on above: Performed By: #### 4 [id number] #### [facility] [address] [place] [address] Specific gravity (U) [Rel density] 1.014 Invalid Interpretation Code 1.005-1.030 [facility] Comment on above: Performed By: #### 4 [id number] #### [facility] [address] [place] [address] Urobilinogen (U) [Mass/Vol] Negative Normal Negative [facility] Comment on above: Performed By: #### 4 [id number] #### [facility] [address] [place] [address] WBC Auto (Urine sed) [#/Area] 0-5 Normal 0-5 [facility] Comment on above: Performed By: #### 4 [id number] #### [facility] [address] [place] [address] Type of Urine collection method Clean Catch Normal [facility] Comment on above: Performed By: #### 4 [id number] #### [facility] [address] [place] [address] eGFRon 04-22-2024 eGFR 104 mL/min/1.73 m2 Normal >=59 [facility] Comment on above: Order Comment: Order added by Discern Expert. Performed By: #### 1 [id number] #### [facility] [address] [place] [address] Ambulatory Visit Summaryon 0 04-12-2024 Ambulatory Visit [...] oral tablet) fluticasone nasal (Flonase 0.05 mg/inh [place]) hydrOXYzine (hydrOXYzine hydrochloride 25 mg Tab) lamotrigine (lamotrigine 200 mg Tab) losartan (losartan 50 mg Tab) multivitamin (Multi Vitamin+) naproxen (naproxen 500 mg Tab) omega-3 polyunsaturated fatty acids ([place]-3 Fish Oil) oxcarbazepine (Trileptal 300 mg Tab) [...] Follow Up with Peter DAVISON, ANGY Mejia, [facility] When: In 1 month Comments: weight loss Where: [address], [address] [address]- Medications What How Much When Why Instructions New ondansetron (Zofran 4 mg Tab) 1 Tablets By Mouth Every 6 hours as needed for Nausea Nausea Pickup at [facility] New semaglutide (Wegovy (0.25 mg dose) subcutaneous solution) 0.25 Milligram Subcutaneous Every week Hypertension HLD (hyperlipidemia) BMI 28.0-28.9,adult Overweight Encounter for weight loss counseling Pickup at [facility] Unchanged acetaminophen (Tylenol Extra Strength 500 [...] Unchanged fluticasone nasal (Flonase 0.05 mg/ inh [place]) 2 Sprays Nasal Inhalation Every day Left [...] or concerns Unchanged omega-3 polyunsaturated fatty acids ([place]-3 Fish Oil) 1 tab By Mouth Every [...] physician if questions or concerns Pharmacy Information [facility]: [address], [place] [id number] [phone] What How Much When Why Comments Stop Taking b (more content not included)... Normal [facility] Family Medicine Office/Clini c Noteon 04-12-2024 Family [...] correct. Additional information provided if needed. Savanah Byesr is a 53-year-old female here for a [...] due to work commitments. She typically consumes Egyptian yogurt and a granola bar, and a [...] for her (more content not included)... Normal [facility] Comment on above: Result Comment: Elec tronically [...] any trauma to the area. 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 [...] pain management. She is employed in the [employer] department at [employer], where she is required to [...] it to a local compounding pharmacy called [facility]. Hypertension: The patient's blood pressure is elevated [...] appearing, _pleasant (more content not included)... Normal [facility] Comment on above: Result Comment: Elec tronically [...] oral tablet) fluticasone nasal (Flonase 0.05 mg/inh [place]) hydrOXYzine (hydrOXYzine hydrochloride 25 mg Tab) lamotrigine (lamotrigine 200 mg Tab) losartan (losartan 50 mg Tab) multivitamin (Multi Vitamin+) naproxen (naproxen 500 mg Tab) omega-3 polyunsaturated fatty acids ([place]-3 Fish Oil) oxcarbazepine (Trileptal 300 mg Tab) [...] as directed on package labeling Pickup at [facility] Changed buPROPion (Wellbutrin SR 150 mg Tab-ER) 1 Tablets By Mouth 2 times a day Encounter for weight loss counseling Adult BMI 28.0-28.9 kg/sq m Overweight Pickup at [facility] Unchanged acetaminophen (Tylenol Extra Strength [...] Unchanged fluticasone nasal (Flonase 0.05 mg/ inh [place]) 2 Sprays Nasal Inhalation Every day Left [...] or concerns Unchanged omega-3 polyunsaturated fatty acids ([place]-3 Fish Oil) 1 tab By Mouth Every [...] physician if questions or concerns Pharmacy Information [facility]: [address], [place] [id number] [phone] What How Much When Why Comments Stop Taking naltrexone (naltrexone 4.5 mg oral capsule) 2 Capsules By Mouth Every day Encounter for weight loss counseling Allergies penicillins Vicodin (migraines for 2 weeks) Problems Ongoing - Any problem that you are currently receiving treatment for. Allergic reaction to tattoo ink Bipolar I disorder, mi (more content not included)... Normal [facility] Family Medicine Office/Clini c Noteon 02-02-2024 Family [...] her back pain worse. She visits her evujxc-vd-gff, who is a therapist, every two weeks. [...] to move (more content not included)... Normal [facility] Comment on above: Result Comment: Elec tronically [...] oral tablet) fluticasone nasal (Flonase 0.05 mg/inh [place]) hydrOXYzine (hydrOXYzine hydrochloride 25 mg Tab) lamotrigine (lamotrigine 200 mg Tab) losartan (losartan 50 mg Tab) multivitamin (Multi Vitamin+) omega-3 polyunsaturated fatty acids ([place]-3 Fish Oil) oxcarbazepine (Trileptal 300 mg Tab) [...] as directed on package labeling Pickup at [facility] New naltrexone (naltrexone 4.5 mg oral capsule) 2 Capsules By Mouth Every day Encounter for weight loss counseling Pickup at [facility] #[facility] Changed buPROPion (Wellbutrin SR 150 mg Tab-ER) 1 Tablets By Mouth Every day Encounter for weight loss counseling Pickup at [facility] #37 Changed naproxen (naproxen 500 mg Tab) 1 Tablets By Mouth 2 times a day Cervical spine pain Overweight Adult BMI 28.0-28.9 kg/sq m take 14 days BID . Pickup at [facility] #[facility] Unchanged acetaminophen (Tylenol Extra Strength [...] Unchanged fluticasone nasal (Flonase 0.05 mg/ inh [place]) 2 Sprays Nasal Inhalation Every day Left [...] or concerns Unchanged omega-3 polyunsaturated fatty acids ([place]-3 Fish Oil) 1 tab By Mouth Every [...] physician if questions or concerns Pharmacy Information [facility] #37: [address] [place], [place] [id number] [phone] Allergies penicillins Vicodin (migraines for 2 weeks) Problems Ongoing - Any problem that you are currently receiving treatment for. Allergic reaction to tattoo ink Bipolar I disorder, mild, c (more content not included)... Normal [facility] Patient Educationon 01-31-20 Patient Education Cardiovascular Hypertension, [...] oz glass (more content not included)... Normal [facility] Coding Summary.on 01-30-2024 Coding Summary. TFQRXcer97LGo6zYn+PG hl YWQ+HC4XONWfW04mqGGjyP 7xD1WNPScXSflvWTGDTLmJ UaSrndRhJX3exKCqMGYf IC8+YD1lRGFbKsxspXZgw4 X0cFN6B89beu6bKMbcuLS4 GIWeNwEplnbem6quaEa0QE cuNmluOyBt KFAtmD40ZVU4jJ52Fm60sA DxmMMdx3vwfBz0MoUiKINi IKL1oPgpZExlz0ZsCELhY8 7qyKHht0D4 IRGvyPuyvDCqNsYhyCC8oQ 4dCZyhvolfd8alukolHkl0 fn95qQHhk5E0uUD7Z6Bkes Y8SDUybGTe LgvjpIXTgP9uisati3guum agFiEvWKBjXXv9IHn5DINt dUkzXlHpJG33CAV6UGRliz OsK9DnPPXf aJfeWtE1j9U3Xi1XR4SQMk haY0AWZCDXKGwkhNQ+PC90 ia03A5AnLekuWtp7CMLlTO L6lQY5iN2n GNZiEAlws4X0rGA1C4Tkwq Kzgp7qw6wmNYXfVPjlK58n hUAqe1Q6MXOgqOM4OEEjzL uuFhZylY22 Oyc+IGXuhDhja9GmChxpl2 hbe2pniTv8DuspNTFvcwNs cVksEMN9o1BsGj2iLXNfbX L0tFN6cQ6l OzQfKoR2PJyqH632OjCffY CwGgghT30bR8PfnAZ+PHRy Zlz6RNUgtBzdMF3rT7QxQJ RpbmctbGVm tMqxWN6gFWPfenhwUYPwdG 4bQNRxW0u0PrDgXbU7XDtm H5EsBFYzjsqeGz40pL0gKd NrBdR8VBvx X9PcimM7HSWenTFuOWcbYB X3R20sk1V7MATuJGCjKQA4 qYZ6oM1pyKunlrrhfAUejS sgdmVydGlj TLlxDMuaL104LEAihPofVc NvZGluZyBEYXRlOiAgMDYv MjUvMjAyNDwvdGQ+PHRkIH T6sYvsHKBi qAWeBMjzFv8qpRqzuEzhOU 8yERDiqabhHQNevW2jPVMw oBMuxOwbYG6mVNXrhwqyd9 89JhQuJJF9 EZPlfKTsL5GrjX3iCnIuGP RpWYUcN0CkeARoVOnuA488 VMexRlQ4SIPsdbRuW3ViWM FsaWduOiB0 o4K8Ld2Xk9HakqsmV3LslH IbFeKmTvxaMOk0K8WiEhiv dHI+PV51SSJhNM04MZs2DA U2fRqsEMwf FCDjE2WssR4jByXwFZVvQZ RkOyc+PHRhYmxlIHdpZHRo OUhjLQJeByEdkTknVL3eEd 9yZGVyLWNv lTqgyYXqXaWyb4mlYPZxJX eoMC6bcMgaG1HhiQJ6IVAp s0o6Uj34U64sY3DfnPX+PG PgkSZ0zXS2 kQ5bMbBnHoY3FYqmA867Di JliOZzMkygc7kad8igkWs7 HpK6KVMhmsSimEbpHFD1q6 GuJn48R74c IHdpZHRoPSIxNSUiIHZhbG dfuv2abY4uGt2+PGNvbCB3 cDW3jY1gGrOdJmJ5WSvsD1 49InRvcCIv Baidf8vvl7xdyXc7KkGvAL SfwnQdbZcsKZM1y8UsWw61 T2ApkUkjp2NiAcn6nk52bN Pgw0S3hXI7 L4WuIUVnupbrcYNapEgxIY 8eMOOyztohMNXpcA1mSGKo E0b7IiVdGhK7VOllT4Gbcb B4TKOvyXKq AAOxhPGTnE8yzmbtm9tmel msByNnGDJmETr8YLa4TIMi hEcmYvHgGWM4LeT1EDD1dN GmwX5quYpb ogwoqD6dIcf+TMZ1yPIvhU CNEP4pCtvdlGZ+PHRkIHN0 eBqvZOkgDTUubO9eMWVxZ9 q1TaHnWmN9 ZWvrG0HimtJ2WYNinOHhHW DrrORLnL4psymqr8mcnvuq RfCwXMNeDVr6RIj0EIAzaE duOiBsZWZ0 DcC1ZCG1bUXhwS6prPacse zsxD9vQaj+QmlydGggRGF0 HHf0F4VbJao7GXDlnLljNM 0ncGFkZGlu Tu3lhExngXbpSG3vVABaia vul030ToCgy2ygZLInsMEa UQfmAAE9M64hh5C6HFQgCY VfATD1wML4 kR9jiThxmlxkeDUhaHwziv WicBdmZFotOXtbC046HARy zFphEsGmEWy4L0EmOqa8FY EvsUviZJ1m fGUgMMvfOm0rjOoavNwrGP 5cEFVaexcqf942LgJel4hi TJQhhPHlCPrdJYI1K07el1 J8JLObXBNq XKD5jME3jR1tuSofudzpnH VmdDsgdmVydGljYWwtYWxp P129YGDvaBliGuQosOp9R2 FmOqo7MBHh vNoqTP3swQXmIHfxXl1szP zkfBneRW9mUSQmdsvgo387 MuIfs3dtQDJdtQSuIKvpBL D8A40bb1W8 QTVeIZCvLKS4bQE4gN8kgS lnbjogbGVmdDsgdmVydGlj BSsmIMdkS045MJOafQqwVg BhdGllbnQg RPheCPj6E8CsGfuecGH+PC 84MVDtLN94uUTucSBwd3jj bUl4MxAmCNLqRGS9sFokTN znd8SwQZWa E18niNXvn1I3IURnyXltrX CuRtUmvFQ3jD0tUChvaail x7lodsepYnjwn4gzwe19fL 26W83wEZsn ZHRoPSIzMCUiIHZhbGlnbj 4hkW3eZa2+DDKasJK2vZI0 fP5uZQHxVzA5HFngE232Kg RvcCIvPjxj q1orh3bgsRa3FdU7VURcpr CnlHawYGJ9z6FzCk06U90b IHdpZHRoPSIyMCUiIHZhbG snok1yuU6u Ii8+DCNmzQQ5uTK4fK2fRe BlXqZ4YUdmY894CaUuzBTy CudsJ26dO1UzcET+PHRyPj j1RDPshZut DJ3myNUhTLngRd5aXVF8Wm CcRmMvCNqgN5MqNZTrblom aeolnBF5NSMkBDUciF78Xd 9udDogMTBw uTUAzV0enlldl8gqpxncLa LbPAWqKKh2OEw5PTMjwTdg WsYtPVA2FfU4WTE4pPBrwF 1hbGlnbjog bM5uA3HjDQJrpqjfSp85uU 4oMuNgOrD0VJvlLxv+Q0FN UCwgSkVOTklGRVIgQTwvdG Q+PHRkIHN0 uNjwEOicXLTijT0xAWNeZ6 x9VwXwPcM4CFefC4QrBAEs shzmMn11tJ2cYwVxSsW5VC asH7QbwiM5 SFQxzXIeGWeoWAG9B92cd1 E3FLLpDBCnPBZ2wQY7bT9f bGlnbjogbGVmdDsgdmVydG ljYWwtYWxp H330FWTbjBazDcLoOuA4Yj M9XyS4C4KkIdg9SRYncYku TD8tuXTbOJcwBg8gjTcfoZ idYY9xVAJj unckYFOkxH0pGXDjsMAxcL unIW1lDPAahfvzi681NjGa UCL7HPXcjGOrS0WvqO5vQt AjMDAwMDAw I8RgiCHkGRmpK748QBcoQd N1OXZkgjCsG1JsHOAjoDdt YmE3o0S5Br79KjLUKUWzoq wvdGQ+PHRk LHZ0xZssWJpkOTDivG8yMM VyC1r9NwAmYlA0NJsyA2Un FCFucjwbKf34oU9iCcGpMc T3LFeyF2Xv sfA7LUSiuLEfVDhmMZL7M8 8fm9W7OFAqIDZmMWZ6oYO2 aN0lvQzhgfydwBIjiGdjnn VydGljYWwt WYxjN664IDQzfJiyLzQzlF FsZTwvdGQ+MAVfUGX1wOup BDdbZQSnhE3yLOVbI1d6Ia UfVjE1UCdo L5ZhTLUnipnqLr44nO8aJi LfCbH9RDkhH9FbulR7ALDy uLRuMDdxQIZ8E77kw0R7ID MwMDAwMDA7 eOG3hY0bpArmdciozTGmcL zbxfIynDoiSDhuNApdE897 SJJmfUmtRl80qBYxqDkjfq C7N8PlOamr dHI+FL10CLYrGN28mLXtrA Hne3rsiDj0IcGrLILmPVY5 eCnaWXhzd5RaNGHjE90yvO Bpm6B1GNEt tAdlqUFwNzNosDV1sY1cYI qscwnpt2ezzsytYguzx8hv ex15fU14Q32dBGmxWLKvBZ IzMCUiIHZh rHgiwx8uvC4nCl5+PGNvbC L3rOA1hO1eUiYhZmZ3EAwk N199OnAgzYXeUttfw6ufz9 yyzAf5PhQw DGPkncSecNbqOMV8i5NjCn 87B67eTMftDPZeXMQfQNXr ZWOxxPgsdg5daF8zQw0+PC 6jl8trgj79 bT80tVO+QKSvWNI2cEgxIP jcBVBmkP9tPXgaUmI2LGUy BdAegV46pOJnEWgxXh3sbS itcSehLH9z THRpdaqxo953XtCqd0rfDL TilFKoMOtoSLP5Y36ux6C6 BTCxKCAaMBJ5oQU7yQ4elW lnbjogbGVm dDsgdmVydGljYWwtYWxpZ2 30FEVxxQemZlGsaIXzO9oi bhVGNM8fZmxmkOP+PHRkIH D7lBcuGExf PSOklP4mUUYfG5p6AcRsFy P1ZAjqH0IhiaM9GHGeiTLw ZHDkqRZQgE1adhhge2yuuk ogIzAwMDAw DZv1DVm2VIRduTlcAkMxRV D8PoH6XMC7nRClwV0wjCzb gzxfpV3eDhe+RklOOjwvdG Q+PHRkIHN0 yRowTSxuPPDczQ6dCTRfH9 m5BaJvVfR1MCchZ3HlbiT2 LBQwxLHwOWVheUGElR7zkr ghv4cjpwtw FhSzNMMwZNg3FZc7DOSdoU cdMaTxFDB0UxY5WQA8pZCb uD0cqVrdzujuoS9sQfe+TV JOOjwvdGQ+ CKJoMFS3vKitDJmoBOKuaE 0xCEIkB8v5GmIzOpB4YLmg D7XvrmX0SJKqxFAsPVYbbO PVbU6eibsl l9qpjuffZgKcCFFcKXw3PB g7TFXpkOlgHwLwVOV0BuJ7 KPF9lSDvoG4mkQaaivcojM 9wOyc+UGF5 QGD0VF59ZQ64R9XmZimscM FibGU+PHRhYmxlIHdpZHRo KLyxYHGaPoRjqEvhJB8cGr 9yZGVyLWNv bGxhcHNlOiBjb (more content not included)... Normal [facility] MA Mamm Screen w/CAD if perf and [...] VERY IMPORTANT TO YOUR HEALTH. THE CURRENT [employer] [...] Ji Saunders MD Transcribed by: NOREEN Technologist: [facility] Assessment: BI-RADS Category 1-Negative Recommendation: Normal interval follow-up Normal [facility] Consent for Treatmenton 01-05 Consent for Treatment [id number] 4060 [id number] 0TIFF Normal [facility] CBC w/ Auto Diffon Basophil Absolute 0.0 E9/L Normal 0.0-0.2 [facility] Comment on above: Performed By: #### 2 316969, 57460626, 1043473, 1810625, 1777597, 460259258, 476374508, 5925286 ####[facility] [address] [place] [address] Basophils/100 WBC (Bld) 0.8 % Normal 0.0-2.0 [facility] Comment on above: Performed By: #### 2 405331, 90202713, 8646460, 1896108, 5993295, 610924279, 583320286, 1025997 ####[facility] [address] [place] [address] Eos Absolute 0.2 E9/L Normal 0.0-0.5 [facility] Comment on above: Performed By: #### 2 768210, 98865278, 0514745, 2549257, 6742175, 425502240, 672963265, 8448081 ####[facility] [address] [place] [address] Eosinophils/100 WBC (Bld) 3.7 % Normal 0.0-8.0 [facility] Comment on above: Performed By: #### 2 637064, 89283957, 5781254, 9485858, 0672812, 006334543, 149896200, 9626308 ####[address] [place] [address] Erythrocyte distribution width (RBC) [Ratio] 13.8 % Normal 10.9-14.2 [facility] Comment on above: Performed By: #### 2 358946, 94311317, 3827580, 0537727, 6551667, 808522495, 213088765, 0513345 ####[address] [address] Hematocrit (Bld) [Volume fraction] 39.0 % Normal 34.0-46.0 [facility] Comment on above: Performed By: #### 2 810376, 21687742, 3797232, 0517232, 4207404, 806882868, 774950107, 8829893 ####[address] [place] [address] Hemoglobin (Bld) [Mass/Vol] 13.2 g/dL Normal 12.0-16.0 [facility] Comment on above: Performed By: #### 2 032269, 81356189, 9460377, 6139926, 4078352, 037400084, 562549124, 2233041 ####[address] [place] [address] Lymph Absolute 2.5 E9/L Normal 1.0-4.0 [facility] Comment on above: Performed By: #### 2 088916, 24360923, 1735141, 7348701, 9842413, 366290624, 721437207, 6309693 ####[facility] [address] [place] [address] Lymphocytes/100 WBC (Bld) 43.2 % Normal 14.0-50.0 [facility] Comment on above: Performed By: #### 2 048675, 76884860, 5430176, 4721029, 5850752, 386771373, 956245743, 2001464 ####[address] [place] [address] MCH (RBC) [Entitic mass] 31.5 pg Normal 27.0-34.0 [facility] Comment on above: Performed By: #### 2 637944, 22915037, 3726706, 5773529, 5688350, 137491472, 941834008, 2632035 ####[address] [address] MCHC (RBC) [Mass/Vol] 33.5 g/dL Normal 31.4-36.0 [facility] Comment on above: Performed By: #### 2 606400, 39034840, 8406038, 1784313, 2729368, 952002670, 632986125, 2180480 ####[address] [address] MCV (RBC) [Entitic vol] 94.0 fL Normal 80.0-100.0 [facility] Comment on above: Performed By: #### 2 431237, 81099158, 9374358, 1054808, 8595408, 958277968, 397121763, 9080815 ####[address] [place] [address] [place] Absolute 0.5 E9/L Normal 0.2-1.0 [facility] Comment on above: Performed By: #### 2 171628, 38335906, 7802862, 7276544, 4114386, 488590801, 068702167, 6095302 ####[address] [address] Monocytes/100 WBC (Bld) 8.0 % Normal 4.0-14.0 [facility] Comment on above: Performed By: #### 2 918672, 35535310, 6625956, 0439661, 9168437, 985591603, 156456170, 2178640 ####[facility] [address] [place] [address] Neutro Absolute 2.6 E9/L Normal 2.0-7.5 [facility] Comment on above: Performed By: #### 2 417282, 14228003, 6818988, 1581341, 4197263, 800161724, 408450024, 7129507 ####[facility] [address] [place] [address] Neutro Auto 44.3 % Normal 36.0-75.0 [facility] Comment on above: Performed By: #### 2 327208, 02148148, 7437574, 8578290, 6686917, 302121622, 186206689, 6728149 ####[facility] [address] [place] [address] Platelet 305.0 E9/L Normal 150.0-500.0 [facility] Comment on above: Performed By: #### 2 103855, 63599810, 7969743, 5899242, 6799196, 663412695, 089467925, 1660480 ####[facility] [address] [place] [address] Platelet mean volume (Bld) [Entitic vol] 7.3 fL Normal 6.4-10.8 [facility] Comment on above: Performed By: #### 2 556127, 05452824, 6640595, 0700798, 8228295, 377756648, 574396655, 5756189 ####[facility] [address] [place] [address] RBC 4.2 E12/L Low 4.3-5.9 [facility] Comment on above: Performed By: #### 2 761041, 58720118, 5989871, 2858010, 9443561, 709617079, 934086042, 4266006 ####[facility] [address] [place] [address] WBC 5.8 E9/L Normal 4.0-11.0 [facility] Comment on above: Performed By: #### 2 286071, 67510309, 5681839, 7609432, 1356030, 448233819, 657827004, 5821403 ####[facility] [address] [place] [address] CHEMISTRYOrdered By: SYSTEM SYSTEM on 09-28-2023 Albumin [...] (Bld) [Mass fraction] 5.5 % Normal <=5.9% [facility] ChemAutoSS CMPon 09-28-2023 Albumin [Mass/Vol] 4.6 g/dL Normal 3.3-5.0 [facility] Comment on above: Performed By: #### 2 578484, 75304271, 7905006, 4618276, 6307956, 248692671, 315192190, 0622739 ####[facility] [address] [place] [address] Albumin/Globulin [Mass ratio] 1.6 {ratio} Normal 1.1-2.2 [facility] Comment on above: Performed By: #### 2 212499, 68788865, 7011158, 0708145, 7105808, 533484419, 263094875, 5950197 ####[facility] [address] [place] [address] Alk Phos 96 Int._Unit/L Normal 21-98 [facility] Comment on above: Performed By: #### 2 184165, 60063218, 7376614, 5741756, 7344403, 496139986, 985502122, 1747533 ####[facility] [address] [place] [address] ALT 29 Int._Unit/L Normal 6-46 [facility] Comment on above: Performed By: #### 2 056945, 41252830, 0299435, 8453998, 0438475, 811708325, 934677495, 1086183 ####[address] [address] Anion gap [Moles/Vol] 11 mmol/L Normal 6-16 [facility] Comment on above: Performed By: #### 2 340427, 23084604, 6008106, 0635200, 1138579, 834010797, 518224269, 1107240 ####[address] [place] [address] AST 29 Int._Unit/L Normal 5-43 [facility] Comment on above: Performed By: #### 2 438717, 31753631, 3469101, 7310328, 3931663, 009924473, 285830515, 5034834 ####[facility] [address] [place] [address] Bili Total 0.6 mg/dL Normal 0.0-1.1 [facility] Comment on above: Performed By: #### 2 714702, 88638721, 0717219, 2677667, 4375248, 498798100, 709500446, 1048522 ####[facility] [address] [place] [address] BUN/Creat Ratio 18 No Units Normal 10-20 [facility] Comment on above: Performed By: #### 2 281833, 70099528, 6719130, 6297334, 8581441, 930653429, 605569300, 8781784 ####[facility] [address] [place] [address] Calcium [Mass/Vol] 10.6 mg/dL Normal 8.9-11.1 [facility] Comment on above: Performed By: #### 2 345720, 94663483, 3010777, 4049128, 9383578, 756745438, 286870056, 6899892 ####[facility] [address] [place] [address] Chloride [Moles/Vol] 105 mmol/L Normal 101-111 [facility] Comment on above: Performed By: #### 2 313787, 80275357, 1028348, 8612773, 5626604, 476729107, 680960256, 8153736 ####[facility] [address] [place] [address] CO2 [Moles/Vol] 30 mmol/L Normal 21-31 [facility] Comment on above: Performed By: #### 2 037847, 10987932, 2807688, 9244200, 4049609, 561360551, 849578414, 1265299 ####[facility] [address] [place] [address] Creatinine [Mass/Vol] 0.9 mg/dL Normal 0.5-1.3 [facility] Comment on above: Performed By: #### 2 244367, 41603513, 0399315, 4663431, 7450293, 424040297, 380962649, 0091984 ####[facility] [address] [place] [address] Globulin (S) [Mass/Vol] 2.8 g/dL Normal 1.4-4.0 [facility] Comment on above: Performed By: #### 2 769070, 89427560, 5607332, 0345418, 6968769, 338067305, 796550043, 7525813 ####[facility] [address] [place] [address] Glucose [Mass/Vol] 91 mg/dL Normal 55-199 [facility] Comment on above: Performed By: #### 2 625003, 74197113, 2118147, 3241640, 6228022, 791497067, 266817190, 2431159 ####[facility] [address] [place] [address] Potassium [Moles/Vol] 4.5 mmol/L Normal 3.5-5.3 [facility] Comment on above: Performed By: #### 2 431501, 96041297, 6054830, 5725572, 7563843, 500892106, 844493951, 8352039 ####[facility] [address] [place] [address] Protein [Mass/Vol] 7.4 g/dL Normal 6.0-7.8 [facility] Comment on above: Performed By: #### 2 965855, 43714144, 4722446, 3973159, 5637765, 254439296, 072835432, 0711843 ####[facility] [address] [place] [address] Sodium [Moles/Vol] 141 mmol/L Normal 135-145 [facility] Comment on above: Performed By: #### 2 785870, 34174178, 5785097, 5274369, 6474304, 223585041, 272901915, 0752471 ####[facility] [address] [place] [address] Urea nitrogen [Mass/Vol] 16 mg/dL Normal 5-21 [facility] Comment on above: Performed By: #### 2 561161, 72754597, 3030520, 6168328, 9955951, 869656193, 834673629, 6186721 ####[facility] [address] [place] [address] Consent for Treatmenton 09-08 Consent for Treatment [id number] 4020 [id number] 0TIFF Normal [facility] Free T4on 09-28-2023 Free T4 [Mass/Vol] 0.48 ng/dL Low 0.58-1.64 [facility] Comment on above: Performed By: #### 2 092774, 42288553, 9916703, 9301725, 4382563, 296245425, 804758908, 9301674 ####[facility] [address] [place] [address] HEMATOLOGYOrdered By: SYSTEM SYSTEM on 09-28-2023 Basophil [...] Normal 80.0 - 100.0 fL Remisol Heme [place] Absolute 0.5 E9/L Normal 0.2 - 1.0 [...] Normal 4.0 - 11.0 E9/L Remisol Heme [id number] 09-28-2023 HbA1c (Bld) [Mass fraction] 5.5 % Normal <=5.9 [facility] Comment on above: Performed By: #### 2 [id number], [id number], 3576860, 1998636, 6826313, [id number], [id number], 3737138 ####[facility] [address] [place] [address] Lipid Panelon 09-28-2023 Cholesterol [Mass/Vol] 238 mg/dL High 120-200 [facility] Comment on above: Performed By: #### 2 400876, [id number], 1453925, 2837307, 8448838, [id number], [id number], 6238676 ####[facility] [address] [place] [address] Cholesterol in HDL [Mass/Vol] 53 mg/dL Invalid Interpretation Code [facility] Comment on above: Result Comment: '>= 60 LOW RISK' '<= 40 HIGH RISK' Performed By: #### 2 626206, [id number], 8966372, 2449444, 7758116, [id number], [id number], 8419143 ####[facility] [address] [place] [address] Cholesterol in LDL [Mass/Vol] 158 mg/dL High <=129 [facility] Comment on above: Performed By: #### 2 490891, 68810041, 5612229, 8422844, 1971520, 930872623, 111772985, 4990530 ####[facility] [address] [place] [address] Cholesterol in VLDL [Mass/Vol] 29 mg/dL Normal 7-40 [facility] Comment on above: Performed By: #### 2 882169, 55513627, 2135112, 2269239, 0092034, [id number], [id number], 3032658 ####[facility] [address] [place] [address] Triglyceride [Mass/Vol] 143 mg/dL Normal <=149 [facility] Comment on above: Performed By: #### 2 011468, 31910920, 2797052, 3121318, 5075710, [id number], [id number], 3899590 ####[facility] [address] [place] [address] TSHon 09-28-2023 TSH Qn 1.43 m[IU]/L Normal 0.34-5.60 [facility] Comment on above: Performed By: #### 2 140367, 20656857, 1980579, 6865884, 6433391, 143715011, 249953198, 2546555 ####[facility] [address] [place] [address] Vitamin D 25 Hydroxyon 09-28 Vitamin D 25 Hydroxy 52.5 ng/mL Normal 30.0-100.0 [facility] Comment on above: Performed By: #### 2 032586, 72330170, 6041613, 6467591, 7718190, [id number], [id number], 0256897 ####[facility] [address] [place] [address] eGFRon 09-28-2023 eGFR 77 mL/min/1.73 m2 Normal >=59 [facility] Comment on above: Order Comment: Order added by Discern Expert. Performed By: #### 2 715316, [id number], 3809567, 8368418, 3312901, [id number], [id number], 7099147 ####[facility] [address] [place] [address] XR Foot - left 3 [facility] Result: 09-12-2023: Left foot x-rays, weightbearing AP/MO/LAT views, obtained today shows: no visible sign of any pathology on all three views left 2nd toe: No fracture, stress fracture, periosteal reaction, gas, foreign body, infection, arthritis, tumor, impaction or cartilage damage special attention also given to the 2nd MPJ and surrounding anatomy. [facility] Radiology Study observation (narrative) [facility] Office/Clini c Noteon 09-06-2023 [...] nasal sprays when needed I did encourage [place] pot use or saline rinsing which she [...] recognition qiana (more content not included)... Normal [facility] Comment on above: Result Comment: Elec tronically [...] mg Tab) fluticasone nasal (Flonase 0.05 mg/inh [place]) hydrOXYzine (hydrOXYzine hydrochloride 25 mg Tab) lamotrigine [...] 11:00 AM EDT With: Sara Flood Where: [facility] Primary Care Normal [facility] Patient Educationon 08-31-19 Patient Education ENT Eustachian [...] ears completely after. General instructions ? Take nrvm-qfq-hakqzny and prescription medicines only as told by [...] treated w (more content not included)... Normal [facility] Provider Letteron 08-29-2023 Provider Letter August 29, 2023 SAVANAH BYERS [address] [place] [address] : 1970 Dear Savanah Byers , We [...] your prompt attention to this matter. Sincerely, [facility] [address] [place] [address], [place] [address] Normal [facility] Family Medicine Office/Clini c Noteon 08-23-2023 Family [...] Obesity ( (more content not included)... Normal [facility] Comment on above: Result Comment: Elec tronically [...] may need to see an occupational health and safety adviser. How is this treated? This condition is [...] and dyes. Medicines ? Take or apply diyp-gji-nqfoiqi and prescription medicines only as told by [...] and water are not available, use hand bag machine tender. General instructions ? Avoid the substance that [...] away if: (more content not included)... Normal [facility] Family Medicine Office/Clini c Noteon 08-02-2023 Family [...] chips and soda during her work at [employer], as she does not have time to cook frozen dessert. She reports difficulty controlling her cravings. She has migraines worse this time of the year due to weather fluctuations. She normally does not have migraines; however, when she c (more content not included)... Normal [facility] Comment on above: Result Comment: Elec tronically [...] oz glass (more content not included)... Normal [facility] Consent for Treatmenton 07-07 Consent for Treatment [id number] 0TIFF Normal [facility] MRI Spine Lumbar w/o Contras ton 07-21-2023 [...] NOREEN Technologist: COURT Technical Comments None Normal [facility] RAD - MRI Screening Formon 1 09-21-2022 RAD - MRI Screening Form [id number] Normal [facility] Physician Orderon 07-18-2023 Physician Order [id number] 0TIFF Normal [facility] CHEMISTRYOrdered By: SYSTEM SYSTEM on 01-17-2023 TSH Qn 0.40 m[IU]/L Normal 0.34 - 5.60 mcIU/mL [facility] Remisol Provider Orderson 08-02-2018 Protein mass conc [id number] [facility] Date Time Vital Sign Value Performing Clinician Facility 06-14-2024 15:32-0500 Diastolic blood pressure 80 mm[Hg] Sara Green [facility] 06-14-2024 15:32-0500 Mean blood pressure 99 mm[Hg] Sara Green [facility] 06-14-2024 15:32-0500 Systolic blood pressure 138 mm[Hg] Sara Green [facility] 06-14-2024 14:58-0500 Blood Pressure Location Sara Green [facility] 06-14-2024 14:58-0500 Diastolic blood pressure 80 mm[Hg] Sara Green [facility] 06-14-2024 14:58-0500 Heart rate 78 /min Sara Geren [facility] 06-14-2024 14:58-0500 SaO2% (BldA) [Mass fraction] 98 % Sara Green [facility] 06-14-2024 14:58-0500 Systolic blood pressure 140 mm[Hg] Sara Green [facility] 05-17-2024 14:07-0400 Blood Pressure Location Sara Green [facility] 05-17-2024 14:07-0400 Body temperature 98.06 [degF] Sara Green [facility] 05-17-2024 14:07-0400 Diastolic blood pressure 64 mm[Hg] Sara Green [facility] 05-17-2024 14:07-0400 Heart rate 87 /min Sara Green [facility] 05-17-2024 14:07-0400 Respiratory rate 18 /min Sara Green [facility] 05-17-2024 14:07-0400 SaO2% (BldA) [Mass fraction] 99 % Sara Green [facility] 05-17-2024 14:07-0400 Systolic blood pressure 118 mm[Hg] Sara Green [facility] 04-12-2024 10:52-0400 Blood Pressure Location Sara Green [facility] 04-12-2024 10:52-0400 Diastolic blood pressure 86 mm[Hg] Sara Green [facility] 04-12-2024 10:52-0400 Heart rate 75 /min Sara Green [facility] 04-12-2024 10:52-0400 SaO2% (BldA) [Mass fraction] 98 % Sara Green [facility] 04-12-2024 10:52-0400 Systolic blood pressure 138 mm[Hg] Sara Green [facility] 03-01-2024 14:52-0400 Blood Pressure Location Sara Green [facility] 03-01-2024 14:52-0400 Body temperature 98.42 [degF] Sara Green [facility] 03-01-2024 14:52-0400 Diastolic blood pressure 80 mm[Hg] Sara Green [facility] 03-01-2024 14:52-0400 Heart rate 65 /min Sara Green [facility] 03-01-2024 14:52-0400 Respiratory rate 18 /min Sara Green [facility] 03-01-2024 14:52-0400 SaO2% (BldA) [Mass fraction] 99 % Sara Green [facility] 03-01-2024 14:52-0400 Systolic blood pressure 140 mm[Hg] Sara Green [facility] 01-31-2024 11:07-0400 Blood Pressure Location Sara Green [facility] 01-31-2024 11:07-0400 Body temperature 98.24 [degF] Sara Green [facility] 01-31-2024 11:07-0400 Diastolic blood pressure 90 mm[Hg] Sara Green [facility] 01-31-2024 11:07-0400 Heart rate 70 /min Sara Green [facility] 01-31-2024 11:07-0400 Respiratory rate 18 /min Sara Green [facility] 01-31-2024 11:07-0400 SaO2% (BldA) [Mass fraction] 99 % Sara Green [facility] 01-31-2024 11:07-0400 Systolic blood pressure 140 mm[Hg] Sara Green [facility] 09-12-2023 14:44-0500 Body temperature 98.2 [degF] Miguel Cai DPM Work Phone: [facility] 09-12-2023 14:44-0500 Diastolic blood pressure 88 mm[Hg] Miguel Cai DPM Work Phone: [facility] 09-12-2023 14:44-0500 Heart rate 78 /min Miguel Alonsobitbrooklyn DPM Work Phone: [facility] 09-12-2023 14:44-0500 Systolic blood pressure 144 mm[Hg] Miguel Cai DPM Work Phone: [facility] 08-17-2023 12:55-0500 Blood Pressure Location Sara Green [facility] 08-17-2023 12:55-0500 Body temperature 98.06 [degF] Sara Green [facility] 08-17-2023 12:55-0500 Diastolic blood pressure 100 mm[Hg] Sara Green [facility] 08-17-2023 12:55-0500 Heart rate 88 /min Sara Green [facility] 08-17-2023 12:55-0500 Respiratory rate 18 /min Sara Green [facility] 08-17-2023 12:55-0500 SaO2% (BldA) [Mass fraction] 97 % Sara Green [facility] 08-17-2023 12:55-0500 Systolic blood pressure 142 mm[Hg] Sara Green [facility] 08-02-2023 10:40-0500 Diastolic blood pressure 88 mm[Hg] Sara Green [facility] 08-02-2023 10:40-0500 Mean blood pressure 102 mm[Hg] Sara Green [facility] 08-02-2023 10:40-0500 Systolic blood pressure 130 mm[Hg] Sara Green [facility] 08-02-2023 10:22-0500 Blood Pressure Location Sara Green [facility] 08-02-2023 10:22-0500 Diastolic blood pressure 98 mm[Hg] Sara Green [facility] 08-02-2023 10:22-0500 Heart rate 78 /min Sara Green [facility] 08-02-2023 10:22-0500 Respiratory rate 18 /min Sara Green [facility] 08-02-2023 10:22-0500 SaO2% (BldA) [Mass fraction] 98 % Sara Green [facility] 08-02-2023 10:22-0500 Systolic blood pressure 138 mm[Hg] Sara Green [facility] 10-12-2022 11:09-0500 Blood Pressure Location Randa Gudimella [facility] 10-12-2022 11:09-0500 Diastolic blood pressure 70 mm[Hg] Randa Gudimella [facility] 10-12-2022 11:09-0500 Heart rate 90 /min Randa Gudimella [facility] 10-12-2022 11:09-0500 SaO2% (BldA) [Mass fraction] 99 % Randa Gudimella [facility] 10-12-2022 11:09-0500 Systolic blood pressure 126 mm[Hg] Randa Gudimella [facility] 06-08-2022 11:53-0400 Blood Pressure Location Mack Monson [facility] 06-08-2022 11:53-0400 Diastolic blood pressure 80 mm[Hg] Mack Monson [facility] 06-08-2022 11:53-0400 Heart rate 66 /min Mack Monson [facility] 06-08-2022 11:53-0400 SaO2% (BldA) [Mass fraction] 97 % Mack Monson [facility] 06-08-2022 11:53-0400 Systolic blood pressure 128 mm[Hg] Mack Monson [facility] 05-17-2022 16:42-0400 Blood Pressure Location Randa Gudimella [facility] 05-17-2022 16:42-0400 Body temperature 98.42 [degF] Randa Gudimella [facility] 05-17-2022 16:42-0400 Diastolic blood pressure 84 mm[Hg] Randa Gudimella [facility] 05-17-2022 16:42-0400 Heart rate 74 /min Randa Gudimella [facility] 05-17-2022 16:42-0400 SaO2% (BldA) [Mass fraction] 98 % Randa Gudimella [facility] 05-17-2022 16:42-0400 Systolic blood pressure 132 mm[Hg] Randa Gudimella [facility] 03-23-2022 10:32-0400 Blood Pressure Location Randa Gudimella [facility] 03-23-2022 10:32-0400 Diastolic blood pressure 76 mm[Hg] Randa Gudimella [facility] 03-23-2022 10:32-0400 Heart rate 72 /min Randa Gudimella [facility] 03-23-2022 10:32-0400 SaO2% (BldA) [Mass fraction] 98 % Randa Gudimella [facility] 03-23-2022 10:32-0400 Systolic blood pressure 124 mm[Hg] Randa Gudimella [facility] 12-23-2021 16:42-0400 Blood Pressure Location Monet Vázquez [facility] 12-23-2021 16:42-0400 Body temperature 97.88 [degF] Monet Vázquez [facility] 12-23-2021 16:42-0400 Diastolic blood pressure 76 mm[Hg] Monet Mcnairell [facility] 12-23-2021 16:42-0400 Heart rate 87 /min Monet Vázquez [facility] 12-23-2021 16:42-0400 SaO2% (BldA) [Mass fraction] 98 % Monet Vázquez [facility] 12-23-2021 16:42-0400 Systolic blood pressure 122 mm[Hg] Monet Vázquez [facility] 11-01-2021 15:11-[address] [facility] 11-01-2021 15:11-0400 Diastolic blood pressure 66 mm[Hg] [facility] 11-01-2021 15:11-0400 Heart rate 78 /min [facility] 11-01-2021 15:11-0400 Respiratory rate 16 /min [facility] 11-01-2021 15:11-0400 SaO2% (BldA) [Mass fraction] 99 % [facility] 11-01-2021 15:11-0400 Systolic blood pressure 120 mm[Hg] [facility] 08-21-2020 11:21-0500 BMI (Body Mass Index) 25.85 kg/m2 [facility] 08-21-2020 11:21-0500 Body weight 77.11 kg [facility] 08-21-2020 11:21-0500 Height 172.7 cm [facility] 08-21-2020 11:21-0500 Respiratory Rate 16 /min [facility] 10-06-2014 11:52-0500 Diastolic blood pressure 76 mm[Hg] [facility] 10-06-2014 11:52-0500 Heart rate 63 /min [facility] 10-06-2014 11:52-0500 Mean blood pressure 89 mm[Hg] [facility] 10-06-2014 11:52-0500 SaO2% (BldA) [Mass fraction] 97 % [facility] 10-06-2014 11:52-0500 Systolic blood pressure 115 mm[Hg] [facility] Encounters Encounter Date Encounter Type Care Provider Facility Start: 07-18-2024 ambulatory Sara Green [facility] ity:[facility] Start: 06-19-2024 End: 06-19-2024 ambulatory Sara Green Facility:[facility] Start: 06-19-2024 End: 06-19-2024 Patient encounter procedure Sara Green [facility] Start: 06-17-2024 End: 06-17-2024 ambulatory Sara Green Facility:[facility] Start: 06-17-2024 End: 06-17-2024 Patient encounter procedure Sara Green [facility] Start: 06-14-2024 End: 06-14-2024 ambulatory Sara Green Facility:[facility] Start: 06-14-2024 End: 06-14-2024 Patient encounter procedure Sara Green [facility] Start: 05-17-2024 End: 05-17-2024 ambulatory Sara Green Facility:[facility] Start: 05-17-2024 End: 05-17-2024 Patient encounter procedure Sara Green [facility] Start: 04-23-2024 End: 04-23-2024 ambulatory GEENA HANSEN Not Available Start: 04-22-2024 End: 04-22-2024 Emergency department patient visit Alex Pena Facility:[facility] Start: 04-12-2024 End: 04-12-2024 ambulatory Sara Green Facility:[facility] Start: 04-12-2024 End: 04-12-2024 Patient encounter procedure Sara Green [facility] Start: 04-11-2024 ambulatory Sara Green Facil ity:[facility] Start: 03-12-2024 End: 03-26-2024 Pre-admission assessment Sara Green [facility] Start: 03-01-2024 End: 03-01-2024 ambulatory Sara Green Facility:[facility] Start: 03-01-2024 End: 03-01-2024 Patient encounter procedure Sara Green [facility] Start: 01-31-2024 End: 01-31-2024 ambulatory Sara Green Facility:[facility] Start: 01-31-2024 End: 01-31-2024 Patient encounter procedure Sara Green [facility] Start: 01-19-2024 End: 01-19-2024 ambulatory Sara Green Facility:[facility] Start: 01-19-2024 End: 01-19-2024 Patient encounter procedure Sara Green [facility] Start: 12-26-2023 End: 12-26-2023 ambulatory GEENA HANSEN Not Available Start: 09-29-2023 ambulatory Sara Green [facility] Start: 09-28-2023 End: 09-28-2023 ambulatory Sara Green Facility:[facility] Start: 09-28-2023 End: 09-28-2023 Patient encounter procedure Sara Green [facility] Start: 09-12-2023 End: 09-12-2023 ambulatory MIGUEL CAI Not Available Start: 09-12-2023 End: 09-12-2023 Office outpatient visit 15 minutes Miguel Cai DPM Work Phone: [facility] Comment on above: Pain of toe of left foot (Primary Dx); Contusion of left lesser toe(s) w/o damage to nail, init; Verruca plantaris; Verruca Start: 09-11-2023 Chart abstracting Miguel hernandez DPM Work Phone: [facility] Start: 08-31-2023 End: 09-15-2023 Pre-admission assessment Sara Green [facility] Start: 08-31-2023 End: 08-31-2023 ambulatory Sara Green Facility[facility] Start: 08-17-2023 End: 08-17-2023 ambulatory Sara Green Facility[facility] Start: 08-17-2023 End: 08-17-2023 Patient encounter procedure Sara Green [facility] Start: 08-08-2023 End: 08-08-2023 ambulatory MIGUEL CAI Not Available Start: 08-02-2023 End: 08-02-2023 ambulatory Sara Green Facility:[facility] Start: 08-02-2023 End: 08-02-2023 Patient encounter procedure Sara Green [facility] Start: 07-21-2023 End: 07-21-2023 ambulatory GEENA HANSEN Facility:[facility] Start: 07-21-2023 End: 07-21-2023 Patient encounter procedure GEENA HANSEN [facility] Start: 07-18-2023 ambulatory Sara Green Facilit y:[facility] Start: 04-19-2023 End: 04-19-2023 Patient encounter procedure Randa Gudimella [facility] Start: 02-03-2023 End: 02-03-2023 Patient encounter procedure Kenyetta L Mykel [facility] Start: 01-17-2023 End: 01-17-2023 Lab Drop off Kenyetta L Mykel [facility] Start: 10-12-2022 End: 10-12-2022 Patient encounter procedure Randa Gudimella [facility] Start: 06-08-2022 End: 06-08-2022 Patient encounter procedure Mack Monson [facility] Start: 05-17-2022 End: 05-17-2022 Patient encounter procedure Randa Kristinamella [facility] Start: 03-30-2022 End: 06-28-2022 Recurring [facility] Start: 03-23-2022 End: 03-23-2022 [facility] Start: 12-23-2021 End: 12-23-2021 Patient encounter procedure Monet Vázquez [facility] Start: 12-23-2021 End: 12-23-2021 [facility] Start: 11-01-2021 End: 11-01-2021 Patient [facility] Start: 03-17-2021 End: 06-26-[address] ALONDRA AJ Facility: Start: 02-22-2021 End: 02-22-2021 ambulatory UPENDER [facility] Start: 02-22-2021 End: 02-22-2021 Phys/qhp telephone evaluation 11-20 min Nikki Calixto MD Work Phone: [facility] Comment on above: Bipolar affective di sorder, mixed, in full remission (HCC) (Primary Dx); Insomnia due to mental disorder Start: 11-20-2020 End: 11-24-2020 ambulatory UPENDER [facility] Start: 11-20-2020 End: 11-20-2020 Phys/qhp telephone evaluation 11-20 min Upender [employer] Work Phone: [facility] Comment on above: Bipolar affective di sorder, mixed, in full remission (HCC) (Primary Dx); Insomnia due to mental disorder Start: 08-21-2020 End: 08-21-2020 ambulatory UPENDER DVAIDSONOT [facility] Start: 08-21-2020 End: 08-21-2020 Phys/qhp telephone evaluation 11-20 min [facility] Work Phone: [facility] Comment on above: Bipolar affective di sorder, mixed, in full remission (HCC) (Primary Dx); Insomnia due to mental disorder Start: 07-27-2018 End: 07-27-2018 [facility] Start: 12-20-2012 End: 12-20-2012 Telephone [...] Rupture of anterior cruciate ligament (disorder) Krystal Kenee Comment on above: 2005 2005 sinus surgery Krystal Keene Plan of Treatment Date Care Activity Detail Author Start: 10-24-2023 End: 10-24-2023 Patient encounter procedure 10/24/2023 4:00 PM EDT Office Visit [facility] [address] [place] [address] Miguel Cai DPRenée [address] [place] [address] [facility] Start: 09-12-2023 End: 09-12-2023 Patient encounter procedure 09/12/2023 4:00 PM EST Office Visit [facility] [address] [place] [id number] Miguel Cai, DPM [address] [place] [address] [facility] Start: 05-24-2021 End: 05-24-2021 Patient encounter procedure 05/24/2021 Office Visit Psychiatry Nikki Calixto MD [address] [place] [address] [phone] [facility] Start: 04-07-2021 Influenza vaccination [facility] Start: 11-20-2020 End: 11-20-2020 Telemedicine 11/20/2020 Telemedicine Psychiatry Nikki Calixto MD [address] [address] [phone] [facility] Start: 04-07-2020 Influenza vaccination given Sequential Influenza Vaccine (#1) [facility] Start: 2016 DIABETES SCREEN DIABETES SCREEN [facility] Start: 2016 LIPID SCREEN LIPID SCREEN [facility] Start: 2011 Mammography MAMMOGRAM [facility] Start: 2011 Screening for malignant neoplasm of breast Mammogram [facility] Start: 2001 HPV TESTING HPV TESTING [facility] Start: 1992 PAP TESTING PAP TESTING [facility] Start: 1990 Urine microalbumin profile DTAP,TDAP,TD (1 - Tdap) [facility] Start: 1989 Hepatitis C antibody, confirmatory test Hepatitis C Screening [facility] Start: 1989 HEPATITIS C SCREENING HEPATITIS C SCREENING [facility] Start: 1989 Hepatitis C screening Hepatitis C Screening [facility] Start: 1989 HIV SCREENING HIV SCREENING [facility] Start: 1987 COVID-19 Vaccine (1) COVID-19 Vaccine (1) [facility] Start: 1986 HIV screening HIV Screening [facility] Start: 1983 Adolescent depression screening assessment [facility] Start: 1983 COVID-19 Vaccine (1) COVID-19 Vaccine (1) [facility] Start: 1974 History and physical examination, annual for health maintenance Wellness Visit [facility] Start: 1971 Screening for malignant neoplasm of cervix Pap Smear [facility] Start: 1971 Screening for malignant neoplasm of colon [facility] Start: 1971 Screening mammography Mammogram [facility] Start: 1971 Tetanus vaccination Tetanus: Every 10yrs [facility] Immunizations Immunization Date Immunization Notes Care Provider Christiano zee NEGATED: Highlighted row has not occurred!10-12-2022 influenza virus vaccine, unspecified formulation Randa Billy [facility] NEGATED: Highlighted row has not occurred!06-08-2022 influenza virus vaccine, unspecified formulation Mack Monson [facility] NEGATED: Highlighted row has not occurred!05-06-2021 influenza virus vaccine, unspecified formulation [facility] NEGATED: Highlighted row has not occurred!05-06-2021 SARS-CoV-2 (COVID-19) Ad26 vaccine, recombinant [facility] NEGATED: Highlighted row has not occurred!05-21-2020 influenza virus vaccine, unspecified formulation [facility] NEGATED: Highlighted row has not occurred!03-05-2020 influenza virus vaccine, unspecified formulation [facility] Payers Date Payer Category Payer Unknown [id number] 2018 Unknown BCBS BCBS [id number] 2018-Present [phone] [address] [place] [address] [id number] 2018 Unknown [id number] 2018 Self-pay ABC 2012 Unknown [id number] 2012 Unknown [id number] [id number] 1971 Unknown [id number] 2.16.840.1.545327.3.579.2.718 1971 Unknown [id number] 2.16.840.1.172612.3.579.2.903 1971 Unknown [id number] 2.16.840.1.302870.3.579.2.903 1971 Unknown [id number] 2.16.840.1.873675.3.579.2.903 1971 Unknown [id number] 2.16.840.1.505297.3.579.2.593 1971 Unknown [id number] 2.16.840.1.899216.3.579.2.727 1971 Unknown [id number] 2.16.840.1.184456.3.579.2.1259 1971 Unknown [id number] 2.16.840.1.251643.3.579.2.1259 1971 Unknown [id number] 2.16.840.1.204121.3.579.2.1259 1971 Unknown [id number] 2.16.840.1.650341.3.579.2.1259 1971 Unknown [id number] 2.16.840.1.476540.3.579.2.727 1971 Unknown [id number] 2.16.840.1.462974.3.579.2. 1971 Unknown [id number] 2.16.840.1.345716.3.579.2 1971 Unknown [id number] 2.16.840.1.186554.3.579.2 1971 Unknown [id number] 2.16.840.1.089713.3.579.2 1971 Unknown [id number] 2.16.840.1.862016.3.579.2 1971 Unknown [id number] 2.16.840.1.809911.3.579.2 1971 Unknown [id number] 2.16.840.1.510885.3.579.2 1971 Unknown [id number] 2.840.1.370808.3.579.2 1971 Unknown [id number] 2.16840.1.653606.3.579.2 1971 Unknown [id number] 2.16840.1.828622.3.579.2 1971 Unknown [id number] 2.16840.1.116110.3.579.2 1971 Unknown [id number] 2.840.1.911582.3.579.2 1971 Unknown [id number] 2.16.840.1.467326.3.579.2 1971 Unknown [id number] 2.16.840.1.879200.3.579.2 1971 Unknown [id number] 2.16.840.1.658217.3.579.2 1971 Unknown [id number] 2.16840.1.997330.3.579.2 1971 Unknown [id number] 2.16.840.1.166075.3.579.2.727 1959 Self-pay Social History Date Type Detail Facility Start: 08-21-2020 End: 02-12-2023 Tobacco smoking status NHIS Never smoker [facility] Start: 08-21-2020 End: 02-12-2023 Tobacco use and exposure Never used [facility] Start: 08-21-2020 End: 09-12-2023 Alcohol intake Current drinker of alcohol (finding) [facility] Start: 1971 Sex Assigned At Not on file [facility] Exposure to SARS-CoV -2 (event) Unable to assess [facility] Start: 12-13-2012 End: 01-26-2023 Tobacco smoking status [facility] Former smoker [facility] History of tobacco use Cigarette Smoker C [facility] Work Phone: Start: 12-13-2012 End: 09-12-2023 Cigarettes smoked current (pack per day) - Reported [facility] Start: 12-13-2012 Alcohol intake Not Asked [facility] Exposure to SARS-CoV -2 (event) Not sure [facility] Work Phone (unformatted): [phone] Tobacco smoking status Never [facility] Start: 08-07-2023 End: 09-12-2023 Sex Assigned At Female [facility] How many standard drinks containing alcohol do [...] Assessment Result Facility 05-17-2024 Functional Status N/A [facility] 04-12-2024 Functional Status N/A [facility] 03-01-2024 Functional Status N/A [facility] 01-31-2024 Functional Status N/A [facility] 08-17-2023 Functional Status N/A [facility] 08-02-2023 Functional Status N/A [facility] 10-12-2022 Functional Status N/A [facility] 06-08-2022 Functional Status N/A [facility] 05-17-2022 Functional Status N/A [facility] 03-23-2022 N/A [facility] Clinical Notes 12-20-2012 to 06-14-2024 Miguel [...] few weeks. Home care treatment may include: Gask-mhz-woceonu pain relievers. A warm, moist cloth placed over the ear. Severe cases may require a procedure to insert tubes in the ears (tympanostomy tubes) to drain the fluid. Follow these instructions at home: Take phuj-aeg-cocjhwh and prescription medicines only as told by [...] provider. Document Revised: 11/18/2021 Document Reviewed: 11/18/2021 [employer] Patient Education 2023 [employer]. 06/14/2024 15:56:30 Fungal Nail Infection Fungal Nail [...] what problems to watch for. Antifungal nail belizean or nail cream. These may be used along with oral antifungal medicines. Laser treatment of the nail. Surgery to remove the nail. This may be needed for the most severe infections. It can take a long time, usually up to a year, for the infection to go away. The infection may also come back. Follow these instructions at home: Medicines Take or apply mmux-fvq-gqtjiym and prescription medicines only as told by your health care provider. Ask your health care provider about using tpci-nda-ltmequb mentholated ointment on your nails. Nail care [...] may also come back. Take or apply iqwz-zts-ojhalrk and prescription medicines only as told by your health care provider. This information is not intended to replace advice given to you by your health care provider. Make sure you discuss any questions you have with your health care provider. Document Revised: 10/25/2021 Document Reviewed: 10/25/2021 [employer] Patient Education 2023 [employer]. 06/14/2024 15:56:28 Health Maintenance, Female Health Maintenance, [...] provider. Document Revised: 12/13/2021 Document Reviewed: 12/13/2021 [employer] Patient Education 2023 [employer]. 06/14/2024 15:56:26 Fatty Liver Disease Fatty Liver [...] cholesterol. Other causes: Alcohol abuse. Poor nutrition. Glen syndrome. . Certain drugs. Poisons. Some viral [...] which activities are best for you. Take btzw-mys-euuxtyz and prescription medicines only as told by [...] provider. Document Revised: 05/06/2021 Document Reviewed: 05/06/2021 [employer] Patient Education 2023 [employer]. Follow Up Care 05/17/2024 15:08:33 With:Sara Flood FAM, [facility] Address: [facility] [address], [facility] [address] [place] [id number]- When:Within 1 Month(s) Comments:weight check, f/u liver US and lipase [facility] 06-14-2024 Note Patient Education [...] weeks. Home care treatment may include: ??? Hxwy-yoj-jnhcpuz pain relievers. ??? A warm, moist cloth placed over the ear. Severe cases may require a procedure to insert tubes in the ears (tympanostomy tubes) to drain the fluid. Follow these instructions at home: ??? Take aeeo-vqp-xnwnbfu and prescription medicines only as told by [...] right away. Call your local emergency services (821 in the [place] Do not drive yourself [...] provider. Document Revised: 11/18/2021 Document Reviewed: 11/18/2021 [employer] Patient Education ? 2023 [employer]. Infectious Disease Fungal Nail Infection A fungal [...] in the surroundin (more content not included)... [facility] 05-17-2024 Hospital Discharge instructions Patient Education 05/17/2024 [...] food choices, such as grocery stores and [employer] markets. What actions can I take to [...] provider. Document Revised: 02/18/2022 Document Reviewed: 02/18/2022 [employer] Patient Education 2023 [employer]. 05/17/2024 15:08:29 Hypertension, Adult Hypertension, Adult High [...] follow-up visits. This is important. Medicines Take terl-wyp-vcpaaqp and prescription medicines only as told by [...] provider. Document Revised: 05/31/2022 Document Reviewed: 05/31/2022 [employer] Patient Education 2023 [employer]. 05/17/2024 15:08:26 Carbohydrate Counting for Diabetes Mellitus, [...] 1.Identify the foods that contain carbohydrates: Rice. [place]. Milk. Strawberries. 2.Calculate how many servings you [...] and snacks. Where to find more information [place] Diabetes Association: diabetes.org Centers for Disease Control [...] provider. Document Revised: 02/24/2021 Document Reviewed: 02/24/2021 [employer] Patient Education 2023 [employer]. 05/17/2024 15:08:24 High Cholesterol High Cholesterol High [...] your health care provider. General instructions Take aaaq-zxo-eqzkvjg and prescription medicines only as told by your health care provider. Keep all follow-up visits. This is important. Where to find more information [place] Heart Association: www.heart.org National Heart, Lung, and Blood [place]: www.nhlbi.nih.gov Contact a health care provider if: [...] provider. Document Revised: 02/24/2023 Document Reviewed: 09/27/2021 [employer] Patient Education 2023 [employer]. 05/17/2024 15:08:22 Dyslipidemia Dyslipidemia Dyslipidemia is an [...] quitting, ask your health care provider. Take qkbv-nnj-oeqqpso and prescription medicines only as told by [...] provider. Document Revised: 02/24/2023 Document Reviewed: 09/27/2021 [employer] Patient Education 2023 [employer]. Follow Up Care 04/12/2024 11:34:47 With:Sara Flood [facility], [facility] Address: [address], [address] [facility] [address] [place] [address]- When:Within 1 Month(s) Comments:semaglutide - labs- hld [facility] 05-17-2024 Note Patient Education [...] wine (148 mL), (more content not included)... [facility] 04-22-2024 Note ED Patient Education Note Gastroenterology [...] ? Low-calorie sports drinks. ? Eat bland, limt-gb-zubzjp foods in small amounts as you are able, such as: ? Bananas. ? Applesauce. ? Rice. ? Low-fat (lean) meats. ? [place]. ? Crackers. ? Avoid drinking fluids that have a lot of sugar or caffeine in them. This includes energy drinks, sports drinks, and soda. ? Avoid alcohol. ? Avoid spicy or fatty foods. General instructions ? Take suak-ikc-oeljlje and prescription medicines only as told by [...] cannot use soap and water, use hand bag machine tender. ? Make sure that everyone in your [...] drink what your doctor tells you. Take ases-nbg-remzbze and prescription medicines only as told by [...] provider. Document Revised: 01/28/2022 Document Reviewed: 01/28/2022 [employer] Patient Education ? 2023 [employer]. Abdominal Pain, Adult Many things can cause belly (abdominal) pain. In most cases, belly pain is not a serious problem and can be watched and treated at home. But in some cases, it can be serious. Your doctor will try to find the cause of your belly pain. Follow these instructions at home: Medicines ? Take nvqc-rig-jgsqgbm and prescription medicines only as told by [...] Your belly pa (more content not included)... [facility] 04-12-2024 Hospital Discharge instructions Patient Education 04/12/2024 [...] Centers for Disease Control and Prevention: cdc.gov [place] Heart Association: heart.org National Heart, Lung, and Blood B[place]y: nhlbi.nih.gov This information is not intended to replace advice given to you by your health care provider. Make sure you discuss any questions you have with your health care provider. Document Revised: 04/13/2023 Document Reviewed: 04/06/2023 [employer] Patient Education 2023 [employer]. 04/12/2024 11:35:40 Nausea, Adult Nausea, Adult Nausea [...] water added (diluted fruit juice). Eat bland, egqy-fu-wvdkkd foods in small amounts as you are able. These foods include bananas, applesauce, rice, lean meats, toast, and crackers. Avoid drinking fluids that contain a lot of sugar or caffeine, such as energy drinks, sports drinks, and soda. Avoid alcohol. Avoid spicy or fatty foods. General instructions Take yjla-vtq-tvgzowj and prescription medicines only as told by your health care provider. Rest at home while you recover. Drink enough fluid to keep your urine pale yellow. Breathe slowly and deeply when you feel nauseous. Avoid smelling things that have strong odors. Wash your hands often using soap and water for at least 20 seconds. If soap and water are not available, use hand bag machine tender. Make sure that everyone in your household [...] recommendations for eating and drinking and take ormk-akf-uzmhjyt and prescription medicines only as told by [...] provider. Document Revised: 01/28/2022 Document Reviewed: 01/28/2022 [employer] Patient Education 2023 [employer]. 04/12/2024 11:35:37 Preventing Health Risks of Being [...] food choices, such as grocery stores and [employer] markets. What actions can I take to [...] provider. Document Revised: 02/18/2022 Document Reviewed: 02/18/2022 [employer] Patient Education 2023 [employer]. 04/12/2024 11:35:35 Heart Disease Prevention Heart Disease [...] of hard liquor (44 mL). Medicines Take jlat-qgk-somjaim and prescription medicines only as told by [...] Centers for Disease Control and Prevention: www.cdc.gov/heartdisease [place] Heart Association: www.heart.org Summary Heart disease is [...] provider. Document Revised: 03/23/2022 Document Reviewed: 03/23/2022 [employer] Patient Education 2023 [employer]. 04/12/2024 11:35:33 High Cholesterol High Cholesterol High [...] your health care provider. General instructions Take bvkp-php-rlvnphq and prescription medicines only as told by your health care provider. Keep all follow-up visits. This is important. Where to find more information [place] Heart Association: www.heart.org National Heart, Lung, and Blood [place]: www.nhlbi.nih.gov Contact a health care provider if: [...] provider. Document Revised: 02/24/2023 Document Reviewed: 09/27/2021 [employer] Patient Education 2023 [employer]. 04/12/2024 11:35:31 Hypertension, Adult Hypertension, Adult High [...] follow-up visits. This is important. Medicines Take ipir-uds-weyrbhi and prescription medicines only as told by [...] provider. Document Revised: 05/31/2022 Document Reviewed: 05/31/2022 [employer] Patient Education 2023 [employer]. 04/12/2024 11:35:31 Heart Disease Prevention Heart Disease [...] of hard liquor (44 mL). Medicines Take knik-trc-dpkqytd and prescription medicines only as told by [...] Centers for Disease Control and Prevention: www.cdc.gov/heartdisease [place] Heart Association: www.heart.org Summary Heart disease is [...] provider. Document Revised: 03/23/2022 Document Reviewed: 03/23/2022 [employer] Patient Education 2023 [employer]. 04/12/2024 11:35:28 Carbohydrate Counting for Diabetes Mellitus, [...] 1.Identify the foods that contain carbohydrates: Rice. [place]. Milk. Strawberries. 2.Calculate how many servings you [...] and snacks. Where to find more information [place] Diabetes Association: diabetes.org Centers for Disease Control [...] provider. Document Revised: 02/24/2021 Document Reviewed: 02/24/2021 [employer] Patient Education 2023 [employer]. Follow Up Care 04/11/2024 15:24:53 With:Sara Flood FAM, [facility] Address: [facility] [address], [facility] [address] [place] [phone]- When:Within 1 Month(s) Comments:weight loss [facility] 04-12-2024 Note Patient Education [...] hard liquor (44 mL). Medicines ? Take elhp-lbl-rtzppjc and prescription medicines only as told by [...] weight. Where to (more content not included)... [facility] 01-31-2024 Hospital Discharge instructions Patient Education 01/31/2024 [...] mouth or applied to the skin. Take yabk-glz-mmbzaqq and prescription medicines only as told by [...] provider. Document Revised: 11/26/2020 Document Reviewed: 11/04/2020 [employer] Patient Education 2022 [employer]. 01/31/2024 12:55:45 Paresthesia Paresthesia Paresthesia is an [...] hard liquor (44 mL). General instructions Take isvz-qfm-mklhmjq and prescription medicines only as told by [...] provider. Document Revised: 04/04/2022 Document Reviewed: 04/04/2022 [employer] Patient Education 2022 [employer] 01/31/2024 12:55:42 Edema Edema Edema is [...] Follow these instructions at home: Medicines Take xitf-xuk-mekstsu and prescription medicines only as told by [...] provider. Document Revised: 03/28/2022 Document Reviewed: 03/28/2022 [employer] Patient Education 2022 [employer]. 01/31/2024 12:55:37 Carbohydrate Counting for Diabetes Mellitus, [...] 1.Identify the foods that contain carbohydrates: Rice. [place]. Milk. Strawberries. 2.Calculate how many servings you [...] and snacks. Where to find more information [place] Diabetes Association: diabetes.org Centers for Disease Control [...] provider. Document Revised: 02/24/2021 Document Reviewed: 02/24/2021 [employer] Patient Education 2022 [employer]. 01/31/2024 12:55:36 Calorie Counting for Weight Loss [...] grilled meats. Avoid extra toppings such as osborn, cheese, or fried items. Ask for the [...] provider. Document Revised: 09/03/2020 Document Reviewed: 09/03/2020 [employer] Patient Education 2022 [employer]. 01/31/2024 12:55:35 BMI for Adults BMI for [...] numbers. This can be done either in [place] or metric measurements. Note that charts and online BMI calculators are available to help you find your BMI quickly and easily without having to do these calculations yourself. To calculate your BMI in [place] measurements: 1.Measure your weight in pounds [...] Centers for Disease Control and Prevention: www.cdc.gov [place] Heart Association: www.heart.org National Heart, Lung, and Blood [place]: www.nhlbi.nih.gov Summary Body mass index (BMI) is a number that is calculated from a person's weight and height. BMI may help estimate how much of a person's weight is composed of fat. BMI can help identify those who may be at higher risk for certain medical problems. BMI can be measured using [place] measurements or metric measurements. BMI charts are used to identify whether you are underweight, normal weight, overweight, or obese. This information is not intended to replace advice given to you by your health care provider. Make sure you discuss any questions you have with your health care provider. Document Revised: 04/15/2020 Document Reviewed: 02/21/2020 [employer] Patient Education 2022 [employer]. 01/31/2024 12:55:32 Hypothyroidism Hypothyroidism Hypothyroidism is when [...] away. Follow these instructions at home: Take ysmj-lhk-skqgbhq and prescription medicines only as told by [...] provider. Document Revised: 07/26/2022 Document Reviewed: 07/26/2022 [employer] Patient Education 2022 [employer]. 01/31/2024 12:55:30 Hypertension, Adult Hypertension, Adult High [...] follow-up visits. This is important. Medicines Take qxal-mgq-lzkovhj and prescription medicines only as told by [...] provider. Document Revised: 05/31/2022 Document Reviewed: 05/31/2022 [employer] Patient Education 2022 [employer]. 01/31/2024 12:55:30 Heart Disease Prevention Heart Disease [...] of hard liquor (44 mL). Medicines Take fnmc-ojq-oauvhsq and prescription medicines only as told by [...] Centers for Disease Control and Prevention: www.cdc.gov/heartdisease [place] Heart Association: www.heart.org Summary Heart disease is [...] provider. Document Revised: 03/23/2022 Document Reviewed: 03/23/2022 [employer] Patient Education 2022 [employer]. 01/31/2024 12:55:29 DASH Eating Plan DASH Eating [...] Fatty cuts of meat. Ribs. Fried meat. [place]. Bologna, salami, and other precooked or cured meats, such as sausages or meat loaves. Fat from the back of a pig (fatback). Bratwurst. Salted nuts and seeds. Canned beans with added salt. Canned or smoked fish. Whole eggs or egg yolks. Chicken or turkey with skin. Dairy Whole or 2% milk, cream, and szif-qfc-stbh. Whole or full-fat cream cheese. Whole-fat or sweetened yogurt. Full-fat cheese. Nondairy creamers. Whipped toppings. Processed cheese and cheese spreads. Fats and oils Butter. Stick margarine. Lard. Shortening. Ghee. [place] fat. Tropical oils, such as coconut, palm [...] more information National Heart, Lung, and Blood Bovey: www.nhlbi.nih.gov [place] Heart Association: www.heart.org Academy of Nutrition and [...] provider. Document Revised: 06/26/2020 Document Reviewed: 06/26/2020 [employer] Patient Education 2022 [employer]. Follow Up Care 08/02/2023 11:59:29 With:Sara Flood FAM, MED Address: [address], [facility] [address] [place] [id number]- When:Within 1 Month(s) Comments:f/u weight check, htn, neck check [facility] 09-12-2023 History of Present [...] date of injury 09-12-2023 SHOE GEAR EVALUATION: [facility] athletic shoes without custom foot orthotics. Imaging [...] Therapy treatment # 3. Entered by Yolis Aj acting as scribe for Dr. Miguel Cai DPM,MS, FACFAS. Signature Yolis Aj RT(R) Date 09-12-2023. Time 5:19 PM. The documentation recorded by the scribe accurately reflects the service(s) I personally performed and the decisions I made. documented in this encounter [facility] 08-17-2023 Hospital Discharge instructions Patient Education [...] numbers. This can be done either in [place] or metric measurements. Note that charts and online BMI calculators are available to help you find your BMI quickly and easily without having to do these calculations yourself. To calculate your BMI in [place] measurements: 1.Measure your weight in pounds [...] Centers for Disease Control and Prevention: www.cdc.gov [place] Heart Association: www.heart.org National Heart, Lung, and Blood Bovey: www.nhlbi.nih.gov Summary Body mass index (BMI) is a number that is calculated from a person's weight and height. BMI may help estimate how much of a person's weight is composed of fat. BMI can help identify those who may be at higher risk for certain medical problems. BMI can be measured using [place] measurements or metric measurements. BMI charts are used to identify whether you are underweight, normal weight, overweight, or obese. This information is not intended to replace advice given to you by your health care provider. Make sure you discuss any questions you have with your health care provider. Document Revised: 04/15/2020 Document Reviewed: 02/21/2020 [employer] Patient Education 2022 [employer]. 08/17/2023 13:39:44 DASH Eating Plan DASH Eating [...] Fatty cuts of meat. Ribs. Fried meat. [place]. Bologna, salami, and other precooked or cured meats, such as sausages or meat loaves. Fat from the back of a pig (fatback). Bratwurst. Salted nuts and seeds. Canned beans with added salt. Canned or smoked fish. Whole eggs or egg yolks. Chicken or turkey with skin. Dairy Whole or 2% milk, cream, and fjbr-hqc-mugi. Whole or full-fat cream cheese. Whole-fat or sweetened yogurt. Full-fat cheese. Nondairy creamers. Whipped toppings. Processed cheese and cheese spreads. Fats and oils Butter. Stick margarine. Lard. Shortening. Ghee. [place] fat. Tropical oils, such as coconut, palm [...] more information National Heart, Lung, and Blood Bovey: www.nhlbi.nih.gov [place] Heart Association: www.heart.org Academy of Nutrition and [...] provider. Document Revised: 06/26/2020 Document Reviewed: 06/26/2020 [employer] Patient Education 2022 [employer]. 08/17/2023 13:39:43 Carbohydrate Counting for Diabetes Mellitus, [...] 1.Identify the foods that contain carbohydrates: Rice. [place]. Milk. Strawberries. 2.Calculate how many servings you [...] and snacks. Where to find more information [place] Diabetes Association: diabetes.org Centers for Disease Control [...] provider. Document Revised: 02/24/2021 Document Reviewed: 02/24/2021 [employer] Patient Education 2022 [employer]. 08/17/2023 13:39:42 Calorie Counting for Weight Loss [...] grilled meats. Avoid extra toppings such as osborn, cheese, or fried items. Ask for the [...] provider. Document Revised: 09/03/2020 Document Reviewed: 09/03/2020 [employer] Patient Education 2022 [employer]. 08/17/2023 13:39:32 Contact Dermatitis Contact Dermatitis Dermatitis [...] may need to see an occupational health and safety adviser. How is this treated? This condition is [...] perfumes, and dyes. Medicines Take or apply fcii-lim-dgrpgvp and prescription medicines only as told by [...] and water are not available, use hand bag machine tender. General instructions Avoid the substance that caused [...] provider. Document Revised: 05/09/2022 Document Reviewed: 05/09/2022 [employer] Patient Education 2022 [employer]. [facility] 08-02-2023 Hospital Discharge instructions [...] Follow these instructions at home: Medicines Take prnb-bfy-lvqcatw and prescription medicines only as told by [...] the National Suicide Prevention Lifeline at or 689. This is open 24 hours a day. Text the Crisis Text Line at 520055. Summary If you have fatigue, you feel [...] provider. Document Revised: 05/16/2022 Document Reviewed: 05/16/2022 [employer] Patient Education 2022 [employer]. 08/02/2023 12:00:06 Exercising to Lose Weight Exercising [...] health care provider or diet and nutrition faculty member (dietitian). This may include: ?Eating fewer calories. [...] provider. Document Revised: 09/19/2021 Document Reviewed: 09/19/2021 [employer] Patient Education 2022 [employer]. 08/02/2023 12:00:05 BMI for Adults BMI for [...] numbers. This can be done either in [place] or metric measurements. Note that charts and online BMI calculators are available to help you find your BMI quickly and easily without having to do these calculations yourself. To calculate your BMI in [place] measurements: 1.Measure your weight in pounds [...] Centers for Disease Control and Prevention: www.cdc.gov [place] Heart Association: www.heart.org National Heart, Lung, and Blood Bovey: www.nhlbi.nih.gov Summary Body mass index (BMI) is a number that is calculated from a person's weight and height. BMI may help estimate how much of a person's weight is composed of fat. BMI can help identify those who may be at higher risk for certain medical problems. BMI can be measured using [place] measurements or metric measurements. BMI charts are used to identify whether you are underweight, normal weight, overweight, or obese. This information is not intended to replace advice given to you by your health care provider. Make sure you discuss any questions you have with your health care provider. Document Revised: 04/15/2020 Document Reviewed: 02/21/2020 [employer] Patient Education 2022 [employer]. 08/02/2023 12:00:01 Chronic Migraine Headache Chronic Migraine [...] Follow these instructions at home: Medicines Take cdcf-jfh-uigljju and prescription medicines only as told by [...] for Headache and Migraine Patients (CHAMP): headachemigraine.org [place] Migraine Foundation: americanmigrainefoundation.org National Headache Foundation: headaches.org [...] provider. Document Revised: 09/09/2020 Document Reviewed: 09/09/2020 [employer] Patient Education 2022 [employer]. 08/02/2023 11:59:59 Insomnia Insomnia Insomnia is a [...] go back to bed. General instructions Take pgbo-wxp-aqjhhxr and prescription medicines only as told by [...] the National Suicide Prevention Lifeline at or 032. This is open 24 hours a day. Text the Crisis Text Line at 710466. Summary Insomnia is a sleep disorder that [...] provider. Document Revised: 07/04/2022 Document Reviewed: 07/04/2022 [employer] Patient Education 2022 [employer]. 08/02/2023 11:59:57 Hypertension, Adult Hypertension, Adult High [...] follow-up visits. This is important. Medicines Take bfsp-rxr-jaislfa and prescription medicines only as told by [...] provider. Document Revised: 05/31/2022 Document Reviewed: 05/31/2022 [employer] Patient Education 2022 [employer]. 08/02/2023 11:59:56 Heart Disease Prevention Heart Disease [...] of hard liquor (44 mL). Medicines Take lhxj-vmv-ddxmeag and prescription medicines only as told by [...] Centers for Disease Control and Prevention: www.cdc.gov/heartdisease [place] Citizen Heart Association: www.heart.org Summary Heart disease is [...] provider. Document Revised: 03/23/2022 Document Reviewed: 03/23/2022 [employer] Patient Education 2022 [employer]. 08/02/2023 11:59:55 DASH Eating Plan DASH Eating [...] Fatty cuts of meat. Ribs. Fried meat. Osborn. Bologna, salami, and other precooked or cured meats, such as sausages or meat loaves. Fat from the back of a pig (fatback). Bratwurst. Salted nuts and seeds. Canned beans with added salt. Canned or smoked fish. Whole eggs or egg yolks. Chicken or turkey with skin. Dairy Whole or 2% milk, cream, and fqdp-afu-ixug. Whole or full-fat cream cheese. Whole-fat or sweetened yogurt. Full-fat cheese. Nondairy creamers. Whipped toppings. Processed cheese and cheese spreads. Fats and oils Butter. Stick margarine. Lard. Shortening. Ghee. Osborn fat. Tropical oils, such as coconut, palm [...] more information National Heart, Lung, and Blood [place]: www.nhlbi.nih.gov [place] Citizen Heart Association: www.heart.org Academy of Nutrition and [...] provider. Document Revised: 06/26/2020 Document Reviewed: 06/26/2020 [employer] Patient Education 2022 [employer]. 08/02/2023 11:59:53 Health Maintenance, Female Health Maintenance, [...] provider. Document Revised: 12/13/2021 Document Reviewed: 12/13/2021 [employer] Patient Education 2022 [employer]. Follow Up Care 07/18/2023 11:26:38 With:Sara Flood FAM, MED Address: [address] [employer] [address] [place] [phone] When:Within 1 Month(s) Comments:f/u labs, HTN, With:Sara Flood FAM, MED Address: [address] [employer] [address] [place] [phone]- Business (1) When:10/11/2023 Comments:for f/u [facility] 05-17-2022 Hospital Discharge instructions [...] height. This can be done either in [place] ([place] or metric measurements. Note that charts are available to help you find your BMI quickly and easily without having to do these calculations yourself. To calculate your BMI in [place] ([place] measurements, your health care provider will: [...] medical problems. BMI can be measured using Turk[place] measurements or metric measurements. To interpret your [...] 04/04/2005 Document Revised: 07/06/2018 Document Reviewed: 06/06/2018 [employer] Patient Education 2020 [employer]. Follow Up Care 05/17/2022 11:41:02 With:Wenceslao MARROQUIN, Randa, FAM, MED Address: [address] [place] [phone]- [phone] When: only if needed [facility] [place] 12-23-2021 Hospital Discharge instructions Patient Education 12/23/2021 [...] height. This can be done either in [place] ([place].S[place] or metric measurements. Note that charts are available to help you find your BMI quickly and easily without having to do these calculations yourself. To calculate your BMI in [place] ([place] measurements, your health care provider will: [...] medical problems. BMI can be measured using Turk[place] measurements or metric measurements. To interpret your [...] 04/04/2005 Document Revised: 07/06/2018 Document Reviewed: 06/06/2018 [employer] Patient Education 2020 [employer]. 12/23/2021 17:07:24 Sinusitis, Adult Sinusitis, Adult Sinusitis [...] at home: Medicines Take, use, or apply alca-shh-unexxto and prescription medicines only as told by [...] and water are not available, use hand bag machine tender. Do not smoke. Avoid being around people [...] 07/24/2006 Document Revised: 12/24/2018 Document Reviewed: 12/24/2018 [employer] Patient Education 2020 [employer] Follow Up Care 12/23/2021 07:59:55 With:Monet Vázquez CNP Address: When: only if needed [facility] 11-01-2021 Hospital Discharge instructions [...] height. This can be done either in [place] (U.S.) or metric measurements. Note that charts are available to help you find your BMI quickly and easily without having to do these calculations yourself. To calculate your BMI in [place] ([place].S[place] measurements, your health care provider will: [...] medical problems. BMI can be measured using Turk[place] measurements or metric measurements. To interpret your [...] 04/04/2005 Document Revised: 07/06/2018 Document Reviewed: 06/06/2018 [employer] Patient Education 2020 [employer]. Follow Up Care 10/19/2021 14:41:47 With:Krystal Greene Address: [email or web address] When: only if needed [facility] 09-22-2021 Hospital Discharge instructions Follow Up Care 09/22/2021 12:00:37 With:Wenceslao MARROQUIN, ANGY Tolentino, CELENA Address: [address] [place] [phone]- [phone] Business (1) When:07/17/2021 [facility] 02-22-2021 History of Present illness Narrative Telephone Visit Via Phone Call [facility] [phone] Telephone Visit [facility] 02/22/2021 Nikki Calixto MD Provider Location: [facility] Patient Location Assistant Printer Floor Covering: None Patient Location: Patient's Home Patient: Savanah [...] there are inherent diagnostic limitations compared to xcyj-vq-xpgh evaluations. We elected to proceed with the [...] Plan of Care. documented in this encounter [facility] 12-20-2012 Miscellaneous Notes I called [...] Thank you! purvi documented in this encounter [facility] Evaluation + Plan note Future Appointments Appointment Date:03/23/2022 10:20:00 AM Scheduled Provider:Wenceslao MARROQUIN, Randa Location:[facility] Appointment Type: Open Future Scheduled OmjxhJHUB-BqP-1, [place] 06/29/21 [facility] [place] Evaluation + Plan note Future Appointments Appointment Date:12/28/2021 01:45:00 PM Scheduled Provider: [facility] Type:PT 45 (FT) Appointment Date:12/30/2021 11:30:00 AM Scheduled Provider: [facility] Type:PT 45 (FT) Appointment Date:12/31/2021 10:00:00 AM Scheduled Provider: [place] [place] Appointment Type:PT 45 (FT) Appointment Date:01/04/2022 11:30:00 AM Scheduled Provider: [place] Appointment Type:PT 45 (FT) Appointment Date:01/06/2022 11:30:00 AM Scheduled Provider: Location:.[place] Appointment Type:PT 45 (FT) Appointment Date:01/10/2022 [...] Date:03/23/2022 10:20:00 AM Scheduled Provider:Randa Billy MD Location:[facility] Appointment Type: Open Future Scheduled ZrnvqPAFJ-BjP-0, [place] 06/29/21 [facility] Evaluation + Plan note Future Appointments Appointment Date:09/21/2022 10:20:00 AM Scheduled Provider:Randa Billy MD Location:[facility] Appointment Type: Open Future Scheduled RoirbXYDY-LhH-8, [place] 06/29/21MA Mamm Screen w/CAD if perf and 3D James 03/23/22 [facility] Evaluation + Plan note Future Appointments Appointment Date:06/27/2022 02:45:00 PM Scheduled Provider: Location:[facility] Appointment Type:MA Screen (FT) Appointment Date:09/21/2022 10:20:00 AM Scheduled Provider:Randa Billy MD Location:[facility] Appointment Type: Open Future Scheduled YhpkmPTHT-OlK-1, [place] 06/29/21MA Mamm Screen w/CAD if perf and 3D James 06/27/22 [facility] Evaluation + Plan note Future Appointments Appointment Date:09/21/2022 10:20:00 AM Scheduled Provider:Randa Billy MD Location:[facility] Appointment Type: Open Future Scheduled DhzhnYJIU-TnK-7, [place] 06/29/[address] [facility] Evaluation + Plan note Future Appointments Appointment Date:04/19/2023 11:00:00 AM Scheduled Provider:Randa Billy MD Location:[facility] Appointment Type: Open [facility] [place] Evaluation + Plan note Future Appointments Appointment Date:04/19/2023 11:00:00 AM Scheduled Provider:Randa Billy MD Location:[facility] Appointment Type: Open Future Scheduled TestsUS Thyroid 01/17/[address] [facility] Evaluation + Plan note Future Appointments Appointment Date:01/31/2024 11:00:00 AM Scheduled Provider:Sara Flood Location:[facility] Appointment Type: Open Future Scheduled JfondAksS2i 08/02/23Vitamin D 25 Hydroxy 08/02/23CBC w/ Auto Diff 08/02/23Comprehensive Metabolic Panel 08/02/23Lipid Panel 08/02/23Thyroid Stimulating Hormone 08/02/23Free T4 08/02/23MA Mamm Screen w/CAD if perf and 3D James 08/02/23 [facility] Evaluation + Plan note Future Appointments Appointment Date:09/29/2023 01:00:00 PM Scheduled Provider:Sara Flood Location:[facility] Appointment Type: Open Appointment Date:01/31/2024 11:00:00 AM Scheduled Provider:Sara Flood Location:[facility] Appointment Type: Open Future Scheduled GwrioPopX7j 08/02/23Vitamin D 25 Hydroxy 08/02/23CBC w/ Auto Diff 08/02/23Comprehensive Metabolic Panel 08/02/23Lipid Panel 08/02/23Thyroid Stimulating Hormone 08/02/23Free T4 08/02/23MA Mamm Screen w/CAD if perf and 3D James 08/02/23 [facility] Evaluation + Plan note Future Appointments Appointment Date:01/31/2024 11:00:00 AM Scheduled Provider:Sara Flood Location:[facility] [employer] Appointment Type: Open Future Scheduled JvdpgOjmK4s 08/02/23Vitamin D 25 Hydroxy 08/02/23CBC w/ Auto Diff 08/02/23Comprehensive Metabolic Panel 08/02/23Lipid Panel 08/02/23Thyroid Stimulating Hormone 08/02/23Free T4 08/02/[address] [facility] Evaluation + Plan note Future Appointments Appointment Date:01/31/2024 11:00:00 AM Scheduled Provider:Sara Flood Location:[facility] [employer] Appointment Type:[facility] Evaluation + Plan note Future Appointments Appointment Date:03/01/2024 02:40:00 PM Scheduled Provider:Sara Flood Location:[facility] [employer] Appointment Type:[facility] Evaluation + Plan note Future Appointments Appointment Date:04/11/2024 11:00:00 AM Scheduled Provider:Sara Flood Location:[facility] [employer] Appointment Type:[facility] Evaluation + Plan note Future Appointments Appointment Date:04/22/2024 02:00:00 PM Scheduled Provider: [facility] Type:EMG Unilateral Upper Extremity Appointment Date:05/17/2024 02:00:00 PM Scheduled Provider:Sara Flood Location:[facility] [employer] Appointment Type:[facility] Evaluation + Plan note Future Appointments Appointment Date:06/14/2024 02:40:00 PM Scheduled Provider:Sara Flood Location:[facility] [employer] Appointment Type: Open Future Scheduled TestsComprehensive Metabolic Panel 05/17/24Lipase Level 05/17/24Lipid Panel 05/17/24 [facility] Evaluation + Plan note Future Appointments Appointment Date:07/18/2024 10:40:00 AM Scheduled Provider:Sara Flood Location:[facility] [employer] Appointment Type:FM Open Future Scheduled TestsComprehensive Metabolic Panel 05/17/24Lipase Level 05/17/24Lipid Panel 05/17/24US Abdomen, Limited 06/14/24 [facility] Evaluation + Plan note Future Appointments Appointment Date:06/19/2024 07:00:00 AM Scheduled Provider: Location:.[facility] Appointment Type:US Abdominal/Pelvis () Appointment Date:07/18/2024 10:40:00 AM Scheduled Provider:Sara Flood Location:[facility] [employer] Appointment Type:FM Open Future Scheduled TestsUS Abdomen, Limited 06/19/[address] [facility] Evaluation + Plan note Future Appointments Appointment Date:07/18/2024 10:40:00 AM Scheduled Provider:Sara Flood Location:[facility] [employer] Appointment Type: Open [facility] Evaluation + Plan note Future Appointments Appointment Date:08/02/2023 10:20:00 AM Scheduled Provider:Sara Flood Location:[facility] [employer] Appointment Type:FM New Patient - Adult [facility] Evaluation note Diagnosis Bipolar affective disorder, mixed, in full remission (HCC)- Primary Bipolar I disorder, most recent episode (or current) mixed, in full remission Insomnia due to mental disorder [facility] Pain of toe of left foot- Primary Contusion of left lesser toe(s) w/o damage to nail, init Verruca plantaris Plantar wart Verruca Viral warts, unspecified [facility] Narrative No data available for this section [facility] Hospital Discharge instructions No data available for this section [facility] Progress note No data available for this section [place] Summary Purpose Family History No Family History [...] Found No data available for this section Advance Directives Documents on File Type Date Recorded 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 Advance Directives and Living Will History of Present Illness * Nikki Calixto MD - 08/21/2020 12:13 PM EST Telephone Visit Via Phone Call [facility] [address] [facility] [phone] Telephone Visit [facility] 08/21/2020 Nikki Calixto MD Provider Location: [facility] Patient Location Assistant Printer Floor Covering: None Patient Location: Patient's Home Patient: Savanah [...] there are inherent diagnostic limitations compared to vwec-ym-gkra evaluations. We elected toproceed with the telephone [...] or behavior since [place] seenin [place]. She reported work is going well she [...] of Care. documented in this encounter* Nikki Calixto MD - 11/20/2020 12:41 PM EDT Telephone Visit Via Phone Call [facility] [phone] Telephone Visit [facility] 11/20/2020 Nikki Calixto MD Provider Location: [facility] Patient Location Assistant Printer Floor Covering: None Patient Location: Patient's Home Patient: Savanah Byers Date of : 1970 (50 y.o. female) PCP: Physician Shonna Brennan discussed risks, benefits and alternatives of a [...] there are inherent diagnostic limitations compared to qsks-wt-eshm evaluations. We elected toproceed with the telephone [...] thought process abnormalities are present. We will Belsomra continues to help her initiate and maintain [...] section and content) DATE CREATED AUTHOR 08/03/2018 [facility] DATE CREATED AUTHOR AUTHOR'S ORGANIZ ATION 02/23/2021 [facility] DATE CREATED AUTHOR AUTHOR'S ORGANIZ ATION 06/27/2021 [facility] DATE CREATED AUTHOR AUTHOR'S ORGANIZ ATION 04/24/2024 [facility] DATE CREATED AUTHOR AUTHOR'S ORGANIZ ATION 04/25/2024 [facility] DATE CREATED AUTHOR AUTHOR'S ORGANIZ ATION 05/20/2024 [facility] DATE CREATED AUTHOR AUTHOR'S ORGANIZ ATION 06/18/2024 [facility] DATE CREATED AUTHOR AUTHOR'S ORGANIZ ATION 06/27/2024 [facility] Reason for Visit (unrecogniz ed [...] or prosecute any alcohol or drug abuse patient.[facility] Care Team (unrecognized sect ion and content) Personnel Name: Sara Flood Address: Address: [address] [place] [address] [phone]- Machine Marker Relationship Specialty Start Date End Date Unallocated, Noms Provider [address] [place], [place] [phone] PCP - General 01/27/23 Machine Marker Relationship Specialty Start Date End Date Unallocated, Noms Provider [address] [place] [address] PCP - General 01/27/23 FOR RECORDS PERTAINING [...] BASED ON THE PRIMARY CLINICAL RECORDS. [facility] [employer] [facility]. provides no warranty or guarantee of the accuracy or completeness of information in this document.
--- NOTE | 2024-07-17 11:35 | VEINCLINIC_ITS ---
Vital Signs 07/17/24 11:37 Height 5 ft 7 in Weight 81.6 kg BMI 28.2 Varicose Veins Patient in today for follow up ultrasound of right lower extremity following EVLT of right GSV completed on 07/11/24. Eugene Brennan MD personally performed the services described in this documentation, as scribed by Holley Hernandez RDMS in my presence and it is both accurate and complete. Holley Brennan RDMS, am scribing for, and in the presence of, Dr. Eugene Aj and in the presence of the patient. thigh: bilateral (symptoms right > left leg), knee: bilateral, calf: bilateral, ankle: bilateral and michael: bilateral aching, burning and cramping 8 2 years Worsened in recent months: Yes standing and heavy lifting analgesics, elevating extremities and compression stockings Reports muscle spasms of leg, bruising and limb pain History of lower extremity trauma: No Superficial thrombophlebitis: No Family history of varicose veins: yes Has patient had previous lower extremity venous surgery: No Patient has previously received the following treatment(s) for lower extremity varicose veins: Reports none Does patient have a history of : yes Does patient intend to have future pregnancies: no Has patient had lower extremity venous scan with relux testing: Yes Results: 4 years ago Support hose used: Yes Problems walking or doing physical activity: Yes How does it affect you: often has to rest and elevate due to pain Do you walk much: Yes Do you stand much: Yes Review of Systems ROS Narrative Eugene Brennan MD personally performed the services described in this documentation, as scribed by Holley Hernandez RDMS in my presence and it is both accurate and complete. Holley Brennan RDMS, am scribing for, and in the presence of, Dr. Eugene Aj and in the presence of the patient. Status of ROS 10 or more systems reviewed and unremark able except as noted in history and below Integumentary/Breast Reports: itching and changes in skin color Neurological Reports: weakness in extremities [facility] Medical History (Updated 07/17/24 @ 11:44 by Holley Hernandez) Phlebitis and thrombophlebitis of superficial vessels of right lower extremity ?I80.01 - Phlebitis and thrombophlebitis of superficial vessels of right lower extremity (ICD-10) Bone spur ?M77.9 - Enthesopathy, unspecified (ICD-10) Disruption of anterior cruciate ligament of left knee ?S83.512A - Sprain of anterior cruciate ligament of left knee, initial encounter (ICD-10) Varicose veins of bilateral lower extremities with pain ?I83.813 - Varicose veins of bilateral lower extremities with pain (ICD-10) Hypertension ?I10 - Essential (primary) hypertension (ICD-10) Migraine ?G43.909 - Migraine, unspecified, not intractable, without status migrainosus (ICD-10) Surgical History (Updated 07/10/24 @ 12:39 by Bijan Juarez) Status post laser ablation of incompetent vein ?Z98.890 - Other specified postprocedural states (ICD-10) H/O sinus surgery ?Z98.890 - Other specified postprocedural states (ICD-10) S/P reconstruction of ACL of left knee using bone-patellar tendon-bone autograft ?Z98.890 - Other specified postprocedural states (ICD-10) Family History (Updated 04/29/24 @ 15:27 by Bijan Juarez) Other Family history of cancer Family history of hypertension Varicose veins of bilateral lower extremities with pain Social History (Updated 04/29/24 @ 15:27 by Bijan Juarez) Within the past year, how often did you have a drink containing alcohol: 2-4 times a month Smoking status: Never smoker Non-prescribed substance use: cannabis (any form) Meds Home Medications and Allergies Home Medications ?Medication ?Instructions ?Recorded ?Confirmed ?Type atogepant 60 mg tablet (Qulipta) 60 mg PO DAILY 04/29/24 04/29/24 History baclofen 15 mg tablet 15 mg PO DAILY 04/29/24 04/29/24 History lamotrigine 200 mg tablet 100 mg PO BID 04/29/24 04/29/24 History (Lamictal) losartan 25 mg tablet (Cozaar) 25 mg PO DAILY 04/29/24 04/29/24 History oxcarbazepine 300 mg tablet 300 mg PO BID 04/29/24 04/29/24 History (Trileptal) semaglutide 1 mg/dose (4 mg/3 mL) 0.25 mg subcut QWEEK 04/29/24 04/29/24 History subcutaneous pen injector (Ozempic) ubrogepant 50 mg tablet (Ubrelvy) mg 04/29/24 History Allergies Allergy/AdvReac Type Severity Reaction Status Date / Time acetaminophen (From Vicodin) Allergy Intermediate Rash Verified 04/29/24 16:02 hydrocodone (From Vicodin) Allergy Intermediate Rash Verified 04/29/24 16:02 Penicillins Allergy Intermediate Rash Verified 04/29/24 16:02 Exam Narrative Exam Narrative: Eugene Brennan MD personally performed the services described in this d ocumentation, as scribed by Holley Hernandez RDMS in my presence and it is both accurate and complete. Holley Brennan RDMS, am scribing for, and in the presence of, Dr. Eugene Aj and in the presence of the patient. Constitutional Documenting provider has reviewed patient's vital signs: yes Common normals: oriented x3 Cardio Peripheral pulses: posterior tibial pulses present and dorsalis pedis pulses present Extremity Common normals: normal capillary refill General: calf tenderness and edema Right lower extremity: lower leg Right lower leg: inspection and palpation Left lower extremity: lower leg Left lower leg: inspection and palpation Neuro Common normals: oriented x3 Results Imaging Venous US: Radiologist's impression: Heat induced thrombus in right GSV 3.4 mm from SFJ and extends to mid lower leg. Eugene Brennan MD personally performed the services described in this documentation, as scribed by Holley Hernandez RDMS in my presence and it is both accurate and complete. Holley Brennan RDMS, am scribing for, and in the presence of, Dr. Eugene Aj and in the presence of the patient. Assessment and Plan Assessment and Plan (1) Phlebitis and thrombophlebitis of superficial vessels of right lower extremity: Plan Plan is for patient to return for EVLT of left leg GSV on 07/24/24. Eugene Brennan MD personally performed the services described in this documentation, as scribed by Holley Hernandez RDMS in my presence and it is both accurate and complete. Holley Brennan RDMS, am scribing for, and in the presence of, Dr. Eugene Aj and in the presence of the patient.
[2024-07-17 11:37] VITALS: BMI 28.2
--- NOTE | 2024-07-17 11:45 | P.DS_ITS ---
Discharge Plan Discharge Disposition: Home, Self-Care Outpatient Diagnostics: VC Endovenous Ablation 1VeinLT (Routine) Timeframe: 2 Weeks Facility: [facility] - Location: [facility] Ordered By: Eugene Aj Follow Up Appointments: 07/24/24 Plan of Treatment: EVLT of left GSV EVLT Tumescent Anesthesia: 500 mL 0.9% NS with 20 mL 1% Lidocaine and 10 mL 8.4% NAHCO3 Buffered Local Anesthesia: 10 mL of 1% Lidocaine Buffered Print Language: Faroese Discharge Date/Time: 07/17/24 11:46
== END 2024-07-17 11:46 | disposition home or self-care (01) ==
PROVIDERS: PCP Radiology Diagnostic Radiology; Visit Provider Radiology Diagnostic Radiology
DX: I80.01 Phlebitis and thrombophlebitis of superficial vessels of right lower extremity (principal)
CPT/HCPCS: 93971; G0463

== ENCOUNTER 2024-07-24 09:46 | Outpatient (OUT) | payer BC, SELFPAY ==
--- NOTE | 2024-07-23 13:19 | V.VEINS.HP ---
Vital Signs 07/24/24 10:26 BP 138/88 BP Location Right Brachial BP Position Sitting BP Cuff Size Adult BP Source Manual Cuff Respiration 16 Pulse 87 Pulse Source Monitor Pulse Oximetry (%) 98 Oxygen Delivery Method Room Air Comment The patient's blood pressure is elevated. Varicose Veins Patient in this day for EVLT of Russ Brennan MD personally performed the services described in this documentation, as scribed by Bijan Juarez RN in my presence and it is both accurate and complete. Bijan Brennan RN, am scribing for, and in the presence of, Dr. Russ Dela Cruz and in the presence of the patient. thigh: bilateral (symptoms right > left leg), knee: bilateral, calf: bilateral, ankle: bilateral and michael: bilateral aching, burning and cramping 8 2 years Worsened in recent months: Yes standing and heavy lifting analgesics, elevating extremities and compression stockings Reports muscle spasms of leg, bruising and limb pain History of lower extremity trauma: No Superficial thrombophlebitis: No Family history of varicose veins: yes Has patient had previous lower extremity venous surgery: No Patient has previously received the following treatment(s) for lower extremity varicose veins: Reports none Does patient have a history of : yes Does patient intend to have future pregnancies: no Has patient had lower extremity venous scan with relux testing: Yes Results: 4 years ago Support hose used: Yes Problems walking or doing physical activity: Yes How does it affect you: often has to rest and elevate due to pain Do you walk much: Yes Do you stand much: Yes Review of Systems ROS Narrative Russ Brennan MD personally performed the services described in this documentation, as scribed by Bijan Juarez RN in my presence and it is both accurate and complete. Bijan Brennan RN, am scribing for, and in the presence of, Dr. Russ Dela Cruz and in the presence of the patient. Status of ROS 10 or more systems reviewed and unremarkable except as noted in history and below Integumentary/Breast Reports: itching and changes in skin color Neurological Reports: weakness in extremities [facility] Medical History (Updated 07/24/24 @ 10:30 by Bijan Juarez) Superficial thrombophlebitis of left leg ?I80.02 - Phlebitis and thrombophlebitis of superficial vessels of left lower extremity (ICD-10) Phlebitis and thrombophlebitis of superficial vessels of right lower extremity ?I80.01 - Phlebitis and thrombophlebitis of superficial vessels of right lower extremity (ICD-10) Bone spur ?M77.9 - Enthesopathy, unspecified (ICD-10) Disruption of anterior cruciate ligament of left knee ?S83.512A - Sprain of anterior cruciate ligament of left knee, initial encounter (ICD-10) Varicose veins of bilateral lower extremities with pain ?I83.813 - Varicose veins of bilateral lower extremities with pain (ICD-10) Hypertension ?I10 - Essential (primary) hypertension (ICD-10) Migraine ?G43.909 - Migraine, unspecified, not intractable, without status migrainosus (ICD-10) Surgical History (Updated 07/24/24 @ 10:29 by Bijan Juarez) Status post laser ablation of incompetent vein ?Z98.890 - Other specified postprocedural states (ICD-10) Status post laser ablation of incompetent vein ?Z98.890 - Other specified postprocedural states (ICD-10) H/O sinus surgery ?Z98.890 - Other specified postprocedural states (ICD-10) S/P reconstruction of ACL of left knee using bone-patellar tendon-bone autograft ?Z98.890 - Other specified postprocedural states (ICD-10) Family History (Updated 04/29/24 @ 15:27 by Bijan Juarez) Other Family history of cancer Family history of hypertension Varicose veins of bilateral lower extremities with pain Social History (Updated 04/29/24 @ 15:27 by Bijan Juarez) Within the past year, how often did you have a drink containing alcohol: 2-4 times a month Smoking status: Never smoker Non-prescribed substance use: cannabis (any form) Meds Home Medications and Allergies Home Medications ?Medication ?Instructions ?Recorded ?Confirmed ?Type atogepant 60 mg tablet (Qulipta) 60 mg PO DAILY 04/29/24 04/29/24 History baclofen 15 mg tablet 15 mg PO DAILY 04/29/24 04/29/24 History lamotrigine 200 mg tablet 100 mg PO BID 04/29/24 04/29/24 History (Lamictal) losartan 25 mg tablet (Cozaar) 25 mg PO DAILY 04/29/24 04/29/24 History oxcarbazepine 300 mg tablet 300 mg PO BID 04/29/24 04/29/24 History (Trileptal) semaglutide 1 mg/dose (4 mg/3 mL) 0.25 mg subcut QWEEK 04/29/24 04/29/24 History subcutaneous pen injector (Ozempic) ubrogepant 50 mg tablet (Ubrelvy) mg 04/29/24 History Allergies Allergy/AdvReac Type Severity Reaction Status Date / Time acetaminophen (From Vicodin) Allergy Intermediate Rash Verified 04/29/24 16:02 hydrocodone (From Vicodin) Allergy Intermediate Rash Verified 04/29/24 16:02 Penicillins Allergy Intermediate Rash Verified 04/29/24 16:02 Exam Narrative Exam Narrative: Russ Brennan MD personally performed the services described in this documentation, as scribed by Bijan Juarez RN in my presence and it is both accurate and complete. IBijan RN, am scribing for, and in the presence of, Dr. uRss Dela Cruz and in the presence of the patient. Constitutional Documenting provider has reviewed patient's vital signs: yes Common normals: oriented x3 Cardio Peripheral pulses: posterior tibial pulses present and dorsalis pedis pulses present Extremity Common normals: normal capillary refill General: calf tenderness and edema Right lower extremity: lower leg Right lower leg: inspection and palpation Left lower extremity: lower leg Left lower leg: inspection and palpation Neuro Common normals: oriented x3 Assessment and Plan Assessment and Plan (1) Varicose veins of bilateral lower extremities with pain: Plan f/u evaluation with physician along with left leg limited u/s Russ Brennan MD personally performed the services described in this documentation, as scribed by Bijan Juarez RN in my presence and it is both accurate and complete. Bijan Brennan RN, am scribing for, and in the presence of, Dr. Russ Dela Cruz and in the presence of the patient. Procedures Procedure Instructions Procedures Plan of care: Risks and benefits of the procedure were discussed at length and informed written consent was obtained.? Time-out completed for verification of correct patient, procedure and site.? Staff present during time-out: Bijan Juarez RN,? Russ Dela Cruz MD, Holley Hernandez [facility], Time Out Time__103 Patient prepped and procedure performed in usual sterile fashion. Risk of injury related to use of Diode laser and/or laser devices__CR___ ? Serial number of laser used :? [id number] Control panel self test performed, electrical cords in good condition, floor is dry, basin of water available, fire extinguisher in close proximity_CR__ Polycarbonate goggles available and Laser warning signs outside of doors___CR__ Eye protection provided to patient and staff in room_CR___ Use of laser retardant drapes and dull blackened instruments as directed__CR___ Use of nonflammable prep solutions and use of saline soaked sponges to protect tissues as indicated _CR___ Length ___39 cm Laser operated by __Dr. Dela Cruz Physician verbal confirmation laser locked in place__CR__ Laser start time (date and time) _07/23/2024@_1047 Laser stop time(date and time) __07/23/2024@__1054 Jimenez _8.0___ Average laser use __2344 Joules Average laser use__293 seconds Pulse continuous ___CR_? Pulse intermittent ___ Amount of Tumescent used _175cc Evaluated patient for signs and symptoms of electrical injury __CR___ ? Skin clear at insertion site __CR___ Patient tolerated procedure well.? Left leg Coban dressing applied to access site.? Applied Left thigh high leg compression stocking. Will return on 08/01/2024 for Left leg limited venous ultrasound and exam. IRuss MD personally performed the services described in this documentation, as scribed by Bijan Juarez RN in my presence and it is both accurate and complete. IBijan RN, am scribing for, and in the presence of, Dr. Russ Dela Cruz and in the presence of the patient.
--- NOTE | 2024-07-23 13:33 | P.DS_ITS ---
Discharge Plan Discharge Disposition: Home, Self-Care Outpatient Diagnostics: [facility] Facility EST LMTD (Routine) Timeframe: 2 Weeks Facility: [facility] - Location: [facility] Ordered By: Russ Dela Cruz VC EXT Venous LT Limited (Routine) Timeframe: 2 Weeks Facility: [facility] - Location: Vein Center Ordered By: Russ Dela Cruz Follow Up Appointments: 08/01/2024 Plan of Treatment: f/u evaluation with physician along with left leg limited u/s Patient Instructions: Endovenous Ablation (DC) Print Language: Irish Discharge Date/Time: 07/24/24 10:30
--- NOTE | 2024-07-24 09:59 | VEIN_ITS ---
[address] [address] Patient Name: LUIS MANUEL BYERS MRN: [id number] date: 1970 Sex: F Assigned Patient Location: Current Patient Location: Accession/Order Number: [id number] Exam Date: 07/24/2024 10:05 Report Date: 07/24/2024 11:04 At the request of: ALONDRA CLEMENT Procedure: VC Endovenous Ablation 1VeinLT EXAMINATION: VC Endovenous Ablation 1VeinLT HISTORY: I83.813 - Varicose veins of bilateral lower extremities w... The risks and benefits of the procedure had been previously discussed, and were rediscussed at length. Informed written consent was obtained. Bijan Juarez RN and Holley Villalobos RDMS assisted. Time out procedure was performed. The left lower extremity was prepared and draped in the usual sterile fashion to allow knee flexion in the sterile field. Duplex ultrasound probe was draped in a sterile cover, sterile transmission gel was used. Venous mapping was performed with the areas of dilation and large tributaries marked. The total length was 39 cm from the entry proximal calf to 3 cm below the Saphenofemoral junction. The diameter of the left great saphenous vein ranged from 5.8 mm. A 30 gauge needle and 1% buffered lidocaine was used to anesthetize the entry site. A 4 mm incision was made with a scalpel and the saphenous vein was entered percutaneously under direct ultrasound guidance with a micropuncture set, a single stick was successful in gaining access. A micro-guide wire was inserted and the needle removed. A micro-set including a dilator was inserted over the microwire and the needle and dilator were removed. A guide wire was inserted through the micro-set and guided through the saphenous vein to the saphenofemoral junction. The dilator was removed and an introducer sheath was inserted over the wire until the end of the sheath entered the saphenofemoral junction. The dilator and wire were removed and the 600 micron fiber was introduced and placed and positioned so that it extended beyond the sheath and was 3 cm distal to the saphenofemoral or saphenopopliteal junction. Final position of the fiber was determined by ultrasound guidance and duplex imaging. Tumescent anesthetic was delivered by ultrasound guidance. 175 cc of fluid was delivered along the entire course of the saphenous vein. The solution consisted of 1000 cc of normal saline with 40 mL of 1% lidocaine and 20 mL of sodium bicarbonate. A final positioning check was made. The energy source was turned on by means of the foot pedal and the fiber and sheath were withdrawn. The total number of Joules delivered was 2344. The laser was active for 293 seconds under continuous pulse, average laser use of 8 J. Laser start time: 10:47 AM Laser stop time: 10:54 AM Date: 07/24/2024. A duplex ultrasound revealed compressibility and flow at the saphenofemoral junction immediately after the procedure. Hemostasis at the access site was achieved. The skin incision of the saphenous vein was closed with a 4 x 4. A compression stocking was applied. Postop instructions were given. A follow up appointment was recommended and scheduled. The patient tolerated the procedure well. Electronically authenticated by: RANDELL GUTIERREZ Date: 07/24/2024 11:04
[2024-07-24] MEDS: 0.9 % SODIUM CHLORIDE 500 ML, LIDOCAINE HCL 20 ML, SODIUM BICARBONATE 10 MEQ INJ (10:15)
[2024-07-24] MEDS: LIDOCAINE HCL 1% 100 MG/10 ML MDV INJ (10:15)
--- OUTSIDE RECORDS SUMMARY | 2024-07-24 10:20 | XMS_ITS | CCD ---
Author Organization [facility]ly [facility], [facility] LIABILITY ANALYST [facility] Care Team Providers Care Chemical Compounder Helper Name Role Phone Nataprawira, Mariana Unavailable Unavailable Nataprawira, Mariana Unavailable Unavailable Nataprawira, Mariana Unavailable Unavailable No, Physician Primary Care Provider UnavailRaleigh Randolph Primary Care Provider [phone] No, Physician Primary Care Provider UnavailNIKKI Olivares Attending Unavailable NO, PHYSICIAN Primary Care Unavailable NIKKI CALIXTO Attending Unavailable NO, PHYSICIAN Primary Care Unavailable NIKKI CALIXTO Attending Unavailable MERLIN, PHYSICIAN Primary Care Unavailable DR ALONDRA AJ [...] Green Attending Unavailable Sara Green Attending Unavailable Unallocated , [facility] Provider Primary Care Provi santy Sara Green Attending Unavailable Sara Green Attending Unavailable Sara Green Admitting Unavailable Aron Echevarria Attending Unavailable Sara Green Attending Unavailable Sara Green Admitting Unavailable Sara Green Attending Unavailable Sara Green Referring Unavailable Sara Green Admitting Unavailable Sara Green Attending Unavailable Sara Green Admitting Unavailable Sara Green Attending Unavailable Allergies Allergy Classification Reported Allergen(s) Allergy Type Date of Onset Reaction(s) Facility Acetaminophen / HYDROcodone (3 sources) Acetaminophen / HYDROcodone; Translations: [HYDROCODONE-ACET AMINOPHEN] Drug Allergy 9 migraines for 2 weeks [facility] Comment on above: Can take Vicodin ES but not regular vicodin Penicillins (antibiotic) (4 sources) Penicillins; Translations: [PENICILLINS] Drug Allergy 3 Rash, Hives [facility] (20 sources) Acetaminophen / HYDROcodone; Translations: [acetaminophen-hy drocodone] Drug Allergy 9 Headache [facility] Comment on above: Can take Vicodin ES but not regular vicodin Can take Vicodin ES but not regular vicodin (20 sources) Penicillins; Translations: [penicillins] Propensity to adverse reactions to drug 3 Hives, Rash [facility] (4 sources) Penicillin G Drug Allergy 3 [facility] (4 sources) Acetaminophen / HYDROcodone; Translations: [Vicodin] Drug Allergy [facility] Repository Medications Current Medications Medication Drug Class(es) Dates Sig (Normalized) Sig (Original) 0.5 ML semaglutide 0.5 MG/ML Auto-Injector [Wegovy] (7 sources) Start: 04-12-2024 inject 0.25 mg by subcutaneous injection every week Wegovy (0.25 mg dose) subcutaneous solution 0.25 mg, SubCutaneous, qWeek, # 4 EA, Refills(s) 0, Pharmacy: [id number], 171.5, cm, 04/12/24 10:56:00 EDT, Height/Length Dosing, 83.9, kg, 04/12/24 10:56:00 EDT, Weight Dosing Start Date: 04/12/24 Status: Ordered acetaminophen 500 mg oral tablet (20 sources) Start: 01-26-2023 take 1 tablet by mouth every six hours Tylenol Extra Strength 500 mg oral tablet 500 mg = 1 tab(s), Oral, q6hr, Refills(s) 0 Start Date: 01/26/23 Status: Ordered Atogepant (Qulipta) 60 MG tablet (2 sources) Start: 04-23-2024 End: 05-23-2024 take 1 tablet by mouth once daily Atogepant (Qulipta) 60 MG tablet Indications: Migraine without status migrainosus, not intractable, unspecified migraine type (CMS/HCC) Take 60 mg by mouth Daily 30 tablet 2 04/23/2024 05/23/2024 Active atogepant 60 MG Oral Tablet [Qulipta] (5 sources) Start: 05-17-2024 take 1 tablet by mouth once daily Qulipta 60 mg oral tablet 60 mg = 1 tab(s), Oral, Daily, Refills(s) 0 Start Date: 05/17/24 Status: Ordered baclofen 20 mg oral tablet (20 sources) gamma-Aminobutyr ic Acid-ergic Agonist Start: 11-01-2019 End: 05-03-2024 take 1 tablet by mouth three times [...] day(s), # 42 cap(s), Refills(s) 0, Pharmacy: [facility], 170, cm, 05/17/22 16:44:00 EDT, Height/Length Dosing, 90.1, kg, 05/17/22 16:44:00 EDT, Weight Dosing Start Date: 05/17/22 Stop Date: 05/31/22 Status: Ordered betamethasone 0.001 mg/mg topical ointment (4 sources) Corticosteroid Start: 08-17-2023 betamethasone Top valerate 0.1% Oint 1 codie, Topical, BID, 45 gram, Refill(s) 0, cover with tegaderm/ telfa to affected area, [facility], 171.5, cm, 08/17/23 13:03:00 EST, Height/Length Dosing, 89.1, kg, 08/17/23 13:03:00 EST, Weight Dosing Start Date: 08/17/23 Status: Ordered 12 hr buPROPion hydrochloride 150 mg extended release oral tablet (10 sources) Aminoketone Start: 03-01-2024 take 1 tablet by mouth twice daily Wellbutrin SR 150 mg Tab-ER 150 mg = 1 tab(s), Oral, BID, # 60 tab(s), Refills(s) 1, Pharmacy: [facility], 171.5, cm, 03/01/24 15:06:00 EDT, Height/Length Dosing, 84.5, kg, 03/01/24 15:06:00 EDT, Weight Dosing Start Date: 03/01/24 Status: Ordered Start: 01-31-2024 take 1 tablet by diana th once daily Wellbutrin SR 150 mg Tab-ER 150 mg = 1 tab(s), Oral, Daily, # 30 tab(s), Refills(s) 0, Pharmacy: [facility], 171.5, cm, 01/31/24 11:29:00 EDT, Height/Length Dosing, 84.6, kg, 01/31/24 11:29:00 EDT, Weight Dosing Start Date: 01/31/24 Status: Ordered Start: 08-17-2023 Wellbutrin SR 150 mg Tab-ER 150 mg = 1 tab(s), Oral, BID, once a day x 1 month then increased, # 180 tab(s), Refills(s) 0, Pharmacy: [facility], 171.5, cm, 08/17/23 13:03:00 EST, Height/Length Dosing, 89.1, kg, 08/17/23 13:03:00 EST, Weight Dosing Start Date: 08/17/23 Status: Ordered take 1 tablet by diana th every twelve hours in the morning buPROPion SR (Wellbutrin SR) 150 MG 12 hr tablet Take 150 mg by mouth in the morning and 150 mg before bedtime. Do not crush, chew, or split.. Active busPIRone hydrochloride 10 mg oral tablet (20 sources) Start: 11-01-2021 take 1 mg by mouth once daily busPIRone 10 mg Tab mg tab(s), Oral, Daily Start Date: 11/01/21 Status: Ordered Calcium (10 sources) Phosphate Binder, Calcium Start: 01-31-2024 take [...] q12hr, # 20 cap(s), Refills(s) 0, Pharmacy: [facility], 170, cm, 06/08/22 11:55:00 EDT, Height/Length Dosing, 88.8, kg, 06/08/22 11:55:00 EDT, Weight Dosing Start Date: 06/08/22 Status: Ordered clindamycin 300 mg oral capsule (1 source) Lincosamide Antibacterial Start: 01-13-2023 End: 01-20-2023 take 1 capsule by mouth every six hours clindamycin 300 mg oral cap 300 mg = 1 cap(s), Oral, q6hr, X 7 day(s), # 28 cap(s), Refills(s) 0, Pharmacy: [facility], 170, cm, 01/04/23 11:46:00 EDT, Height/Length [...] cough and congestion, 120 mL, Refill(s) 0, [facility], 170, cm, 05/17/22 16:44:00 EDT, Height/Length [...] day(s), # 14 tab(s), Refills(s) 0, Pharmacy: [facility], 170, cm, 12/23/21 16:48:00 EDT, Height/Length Dosing, 88, kg, 12/23/21 16:48... Start Date: 12/23/21 Stop Date: 12/30/21 Status: Ordered estrogens, conjugated (fdc) 0.625 mg/ml vaginal cream (1 source) Estrogen Start: 07-18-2024 conjugated estrogens 0.625 mg/g vaginal cream with applicator 0.5 gm, Vaginal, qPM, 42 gm, Refill(s) 0, every other night, [facility], 171.5, cm, 07/18/24 11:10:00 EST, Height/Length Dosing, 76.3, kg, 07/18/24 11:10:00 EST, Weight Dosing Start Date: 07/18/24 Status: Ordered Fish Oils (10 sources) Start: 01-31-2024 take 1 tablet by mouth once daily [place]-3 Fish Oil 1 tab, Oral, Daily, Refills(s) 0 Start Date: 01/31/24 Status: Ordered fluticasone propionate 0.05 mg/actuat metered dose nasal spray (20 sources) Corticosteroid Start: 06-14-2024 Flonase 0.05 mg/inh [place] 2 spray(s), Nasal, Daily, 16 gram, Refill(s) 4, each nostril, [facility], 171, cm, 06/14/24 15:03:00 EST, Height/Length Dosing, 78.5, kg, 06/14/24 15:03:00 EST, Weight Dosing Start Date: 06/14/24 Status: Ordered Start: 01-04-2023 Flonase 0.05 m g/inh [place] 2 spray(s), Nasal, Daily, 16 gram, Refill(s) 0, each nostril, [facility], 170, cm, 01/04/23 11:46:00 EDT, Height/Length Dosing, 87.5, kg, 01/04/23 11:46:00 EDT, Weight Dosing Start Date: 01/04/23 Status: Ordered Start: 05-17-2022 take 1 spray(s) nasa l route twice daily fluticasone 0.05 mg/inh Nasal [place] 1 spray(s), Nasal, BID, 16 gram, Refill(s) 0, each nostril, [facility], 170, cm, 05/17/22 16:44:00 EDT, Height/Length Dosing, 90.1, kg, 05/17/22 16:44:00 EDT, Weight Dosing Start Date: 05/17/22 Status: Ordered Start: 09-22-2021 take 1 spray(s) nasa l route twice daily fluticasone 0.05 mg/inh Nasal [place] 1 spray(s), Nasal, BID, 16 gram, Refill(s) 0, each nostril, [facility], 170, cm, 09/22/21 11:38:00 EST, Height/Length Dosing, 87.3, kg, 09/22/21 11:38:00 EST, Weight Dosing Start Date: 09/22/21 Status: Ordered fluticasone 0.05 mg/inh Nasal [place] (5 sources) Start: 05-17-2022 take 1 spray(s) nasal route twice daily fluticasone 0.05 mg/inh Nasal [place] 1 spray(s), Nasal, BID, 16 gram, Refill(s) 0, each nostril, [facility], 170, cm, 05/17/22 16:44:00 EDT, Height/Length Dosing, 90.1, kg, 05/17/22 16:44:00 EDT, Weight Dosing Start Date: 05/17/22 Status: Ordered Start: 09-22-2021 take 1 spray(s) nasa l route twice daily fluticasone 0.05 mg/inh Nasal [place] 1 spray(s), Nasal, BID, 16 gram, Refill(s) 0, each nostril, [facility], 170, cm, 09/22/21 11:38:00 EST, [...] Daily, # 180 tab(s), Refills(s) 0, Pharmacy: [facility], 170, cm, 03/19/20 13:46:00 EDT, Height/Length Dosing, 76.5, kg, 03/19/20 13:46:00 EDT, Weight Dosing Start Date: 05/15/20 Status: Ordered take 1 tablet by mouth once emily y lamoTRIgine (LaMICtal) 200 MG tablet Take 200 mg by mouth 1 (one) time each day at the same time. Active losartan potassium 50 mg oral tablet (20 sources) Angiotensin 2 Receptor Ruyd Start: 02-07-2024 take 1 tablet by mouth once daily losartan 50 mg Tab 50 mg = 1 tab(s), Oral, Daily, # 180 tab(s), Refills(s) 3, Pharmacy: [facility], 171.5, cm, 01/31/24 11:29:00 EDT, Height/Length Dosing, 84.6, kg, 01/31/24 11:29:00 EDT, Weight Dosing Start Date: 02/07/24 Status: Ordered Start: 02-07-2024 take 1 tablet by diana twice daily losartan 50 mg Tab 50 mg = 1 tab(s), Oral, BID, # 180 tab(s), Refills(s) 3, Pharmacy: [facility], 171.5, cm, 01/31/24 11:29:00 EDT, Height/Length Dosing, 84.6, kg, 01/31/24 11:29:00 EDT, Weight Dosing Start Date: 02/07/24 Status: Ordered Start: 10-06-2023 take 1 tablet by diana twice daily losartan 50 mg Tab 50 mg = 1 tab(s), Oral, BID, # 180 tab(s), Refills(s) 0, Pharmacy: [facility], 171.5, cm, 08/31/23 13:49:00 EST, Height/Length Dosing, 86.3, kg, 08/31/23 13:49:00 EST, Weight Dosing Start Date: 10/06/23 Status: Ordered Start: 07-18-2023 take 1 tablet by diana once daily losartan 25 mg Tab 25 mg = 1 tab(s), Oral, Daily, # 90 tab(s), Refills(s) 0, Pharmacy: [facility], 171.5, cm, 01/26/23 12:01:00 EDT, Height/Length Dosing, 86.8, kg, 01/26/23 12:01:00 EDT, Weight Dosing Start Date: 07/18/23 Status: Ordered Start: 03-05-2020 End: 03-18-2023 take 1 tablet by mouth once daily losartan 25 mg Tab 25 mg = 1 tab(s), Oral, Daily, # 90 tab(s), Refills(s) 3, Pharmacy: [facility], 170, cm, 05/17/22 16:44:00 EDT, [...] supper, # 90 tab(s), Refills(s) 1, Pharmacy: [facility], 170, cm, 03/19/20 13:46:00 EDT, Height/Length Dosing, 76.5, kg, 03/19/20 13:46:00 EDT, Weight Dosing Start Date: 05/15/20 Status: Ordered Magnesium glycinate (1 source) Start: 07-18-2024 magnesium glycinate Oral, Daily, OTC Start Date: 07/18/24 Status: Ordered methylPREDNISolone 4 mg oral tablet (2 sources) Corticosteroid Start: 03-01-2024 End: 03-07-2024 Medrol 4 mg Tab = 1 packet(s), Oral, As Directed, as directed on package labeling, X 6 day(s), # 21 tab(s), Refills(s) 0, Pharmacy: [facility], 171.5, cm, 03/01/24 15:06:00 EDT, Height/Length Dosing, 84.5, kg, 03/01/24 15:06:00 EDT, Weight Dosing Start Date: 03/01/24 Stop Date: 03/07/24 Status: Ordered Start: 01-31-2024 End: 02-06-2024 Medrol 4 mg Tab = 1 packet(s ), Oral, As Directed, as directed on package labeling, X 6 day(s), # 21 tab(s), Refills(s) 0, Pharmacy: [facility], 171.5, cm, 01/31/24 11:29:00 EDT, Height/Length Dosing, 84.6, kg, 01/31/24 11:29:00 EDT, Weight Dosing Start Date: 01/31/24 Stop Date: 02/06/24 Status: Ordered Multi Vitamin+ (10 sources) Start: 01-31-2024 take 1 tablet by mouth once daily Multi Vitamin+ 1 tablet, Oral, Daily, Refill(s) 0 Start Date: 01/31/24 Status: Ordered Naltrexone (1 source) Opioid Antagonist Start: 01-31-2024 take 2 capsules by mouth once daily naltrexone 4.5 mg oral capsule = 2 cap(s), Oral, Daily, # 60 cap(s), Refills(s) 0, Pharmacy: [facility], 171.5, cm, 01/31/24 11:29:00 EDT, Height/Length Dosing, 84.6, kg, 01/31/24 11:29:00 EDT, Weight Dosing Start Date: 01/31/24 Status: Ordered naproxen 500 mg oral tablet (20 sources) Nonsteroidal Anti-inflammatory Drug Start: 01-31-2024 naproxen 500 mg Tab 500 mg = 1 tab(s), Oral, BID, take 14 days BID ., # 60 tab(s), Refills(s) 0, Pharmacy: [facility], 171.5, cm, 01/31/24 11:29:00 EDT, Height/Length [...] day, # 14 tab(s), Refills(s) 0, Pharmacy: [facility], 170, cm, 09/22/21 11:38:00 EST, Height/Length Dosing, 82, kg, 10/04/21 11:38:00 EST, Weight Dosing Start Date: 10/04/21 Status: Ordered take 1 capsule by mo [facility] in the morning Naproxen Sodium 220 MG capsule Take 1 capsule by mouth in the morning. Active nitrofurantoin, macrocrystals 25 mg / nitrofurantoin, monohydrate 75 mg oral capsule (1 source) Nitrofuran Antibacterial Start: 07-18-2024 End: 07-23-2024 take 1 capsule by mouth twice daily Macrobid 100 mg Cap 100 mg = 1 cap(s), Oral, BID, X 5 day(s), # 10 cap(s), Refills(s) 0, Pharmacy: [facility], 171.5, cm, 07/18/24 11:10:00 EST, Height/Length Dosing, 76.3, kg, 07/18/24 11:10:00 EST, Weight Dosing Start Date: 07/18/24 Stop Date: 07/23/24 Status: Ordered ondansetron 4 mg disintegrating oral tablet (8 sources) Serotonin-3 Receptor Antagonist Start: 05-17-2024 take 1 tablet by mouth every six hours as needed for nausea ondansetron 4 mg Dis Tab 4 mg = 1 tab(s), Oral, q6hr, PRN Nausea/Vomiting, # 12 tab(s), Refills(s) 0, Pharmacy: [facility], 171.5, cm, 05/17/24 14:17:00 EDT, Height/Length Dosing, 79.1, kg, 05/17/24 14:17:00 EDT, Weight Dosing Start Date: 05/17/24 Status: Ordered Start: 04-22-2024 take 1 tablet by diana every six hours as needed for nausea ondansetron 4 mg Dis Tab 4 mg = 1 tab(s), Oral, q6hr, PRN Nausea/Vomiting, # 12 tab(s), Refills(s) 0, Pharmacy: [facility], 171.5, cm, 04/22/24 18:39:00 EDT, Height/Length Dosing, 83.9, kg, 04/22/24 18:39:00 EDT, Weight Dosing Start Date: 04/22/24 Status: Ordered Start: 04-12-2024 take 1 tablet by diana every six hours as needed for nausea Zofran 4 mg Tab 4 mg = 1 tab(s), Oral, q6hr, PRN Nausea, # 30 tab(s), Refills(s) 0, Pharmacy: [facility], 171.5, cm, 04/12/24 10:56:00 EDT, Height/Length Dosing, 83.9, kg, 04/12/24 10:56:00 EDT, Weight Dosing Start Date: 04/12/24 Status: Ordered predniSONE 10 mg oral tablet (3 sources) Start: 08-31-2023 predniSONE 10 mg Tab = 1 -, Oral, As Directed, Take 3 tabs by mouth daily x5 days, then 2 tabs daily x5 days, then 1 tab daily x5 days., # 30 tab(s), Refills(s) 0, Pharmacy: [facility], 171.5, cm, 08/31/23 13:49:00 EST, Height/Length Dosing, 86.3, kg, 08/31/23 13:49:00 EST, Weight Dosing Start Date: 08/31/23 Status: Ordered rimegepant 75 mg disintegrat ing oral tablet (19 sources) Start: 01-04-2023 Nurtec ODT 75 mg oral tablet, disintegrating Refills(s) 0 Start Date: 01/04/23 Status: Ordered Rimegepant Sulfate (NURTEC P O) (3 sources) Rimegepant Sulfa te (NURTEC PO) Take by mouth Active Rimegepant Sulfa te (NURTEC PO) Take by mouth 0 Active suvorexant 20 mg oral tablet (20 sources) Orexin Receptor Antagonist Start: 05-15-2020 End: 02-22-2021 take 1 tablet by mouth once daily at bedtime Belsomra 20 mg oral tablet 20 mg = 1 tab(s), Oral, Once a day (at bedtime), g47.0, # 90 tab(s), Refills(s) 1, Pharmacy: [facility] 170, cm, 03/19/20 13:46:00 [...] then increase to 1 tablet PO daily. OXcarbazepine 300 mg oral tablet (20 sources) Anti-epileptic Agent Start: 02-14-2020 OXcarbazepine (TrileptaL) 300 MG tablet Take 450 mg by mouth nightly . 0 02/14/2020 Active Start: 02-14-2020 End: 05-23-2024 take 1 tablet by mouth twice daily Trileptal 300 mg Tab 300 mg = 1 tab(s), Oral, BID, Refills(s) 0 Start Date: 02/14/20 Status: Ordered Start: 02-14-2020 End: 04-23-2024 take 1.5 tablets by mouth at bedtime OXcarbazepine (Trileptal) 300 MG tablet Indications: Migraine without status migrainosus, not intractable, unspecified migraine type (CMS/HCC) Take 1.5 tablets (450 mg) by mouth at bedtime 45 tablet 04/10/2024 04/23/2024 Discontinued (Reorder) 24 hr propranolol hydrochloride 60 mg extended release oral capsule (1 source) beta-Adrenergic Rudy Start: 10-31-2012 End: 10-11-2013 take 1 capsule by mouth once daily propranolol LA (INDERAL LA) 60 mg 24 hr capsule Take 1 capsule by mouth once daily. 0 10/31/2012 10/11/2013 Discontinued (Erroneous entry) Comment on above: Take [address] [facility] once daily. Problems Active Problems Problem Classification Problem Date Documented Da te Episodic/Chronic Abdominal pain (1 source) Abdominal pain; Translations: [Unspecified abdominal pain] Onset: 04-22-2024 Episodic Acquired foot deformities (20 sources) Acquired hallux rigidus; Translations: [Hallux rigidus, unspecified foot] Onset: 02-12-2023 Resolved: 02-12-2023 10-18-2013 Chronic Comment on above: RIGHT FOOT RIGHT FOOT Acute cerebrovascular disease (2 sources) Cerebral embolism; Translations: [Occlusion and stenosis of unspecified cerebral artery] Onset: 12-24-2023 12-24-2023 Chronic Administrative/social admission (6 sources) Counseling procedure with explicit context; Translations: [Dietary counseling and surveillance] Onset: 08-17-2023 Episodic Allergic reactions (15 sources) Allergic disposition; Translations: [Other allergy, initial encounter] Onset: 08-17-2023 Episodic Anxiety disorders (20 sources) Anxiety; Translations: [Posttraumatic stress disorder] Onset: 07-28-2023 05-26-2014 Chronic Chronic obstructive pulmonary disease and bronchiectasis (13 sources) Bronchitis 08-31-2023 Episodic Disorders of lipid metabolism (9 sources) Hyperlipidemia; Translations: [Hyperlipidemia, unspecified] Onset: 04-12-2024 Chronic Essential hypertension (20 sources) Essential hypertension; Translations: [Essential (primary) hypertension] Onset: 11-01-2021 Chronic Genitourinary symptoms and ill-defined conditions (2 sources) Cloudy urine; Translations: [Increased frequency of urination] 07-18-2024 Episodic Headache; including migraine (20 sources) Migraine; Translations: [Migraine, unspecified, not intractable, without status migrainosus] Onset: 12-13-2012 12-13-2012 Chronic Menopausal disorders (1 source) Atrophy of vagina 07-18-2024 Chronic Miscellaneous mental health disorders (20 sources) Insomnia disorder related to another mental disorder; Translations: [Insomnia due to other mental disorder] Onset: 08-21-2020 08-21-2020 Chronic Mood disorders (20 sources) Mixed bipolar affective disorder, in full remission; Translations: [Bipolar disorder, in full remission, most recent episode mixed] Onset: 08-21-2020 08-21-2020 Chronic Mycoses (5 sources) Onychomycosis due to dermatophyte ; Translations: [Tinea unguium] Onset: 06-14-2024 Episodic Nausea and vomiting (10 sources) Nausea; Translations: [Nausea] Onset: 04-12-2024 Episodic [...] Onset: 03-01-2024 Episodic Other connective tissue disease (9 sources) Tendinitis of right elbow 03-01-2024 Episodic Other connective tissue disease (2 sources) Muscle pain; Translations: [Myalgia, unspecified site] 04-23-2024 Episodic Other eye disorders (2 sources) Eye movement - finding; Translations: [Unspecified nystagmus] Onset: 12-24-2023 12-24-2023 Chronic Other liver diseases (1 source) Disease of liver; Translations: [Other specified diseases of liver] Onset: 06-14-2024 Chronic Other liver diseases (4 sources) Liver cyst 06-14-2024 Chronic Other liver diseases (2 sources) Enzyme level - finding; Translations: [Abnormal levels of other serum enzymes] Onset: 05-17-2024 Episodic Other liver diseases (5 sources) High lipase level in serum 05-17-2024 Episodic Other lower respiratory disease (20 sources) Dyspnea on exertion; Translations: [Shortness of breath] Onset: 07-28-2023 05-06-2021 Episodic Other nervous system disorders (2 sources) Paresthesia; Translations: [Paresthesia of skin] Onset: 01-31-2024 Episodic Other nervous system disorders (10 sources) Paresthesia of hand 01-31-2024 Episodic Other nutritional; endocrine; and metabolic disorders (8 sources) Obese class I; Translations: [Body mass index (BMI) 30.0-30.9, adult] Onset: 11-01-2021 Chronic Other nutritional; endocrine; and metabolic disorders (5 sources) Body mass index 30+ - obesity; Translations: [Body mass index (BMI) 30.0-30.9, adult] Onset: 07-28-2023 09-22-2021 Chronic Other nutritional; endocrine; and metabolic disorders (20 sources) Obesity; Translations: [Obesity, unspecified] Onset: 12-23-2021 09-22-2021 Chronic Other nutritional; endocrine; and metabolic disorders (4 sources) Obesity caused by energy imbalance; Translations: [...] done] Onset: 03-23-2022 Episodic Other skin disorders (10 sources) Swelling of hand 01-31-2024 Episodic Other upper respiratory disease (20 sources) Seasonal allergy; Translations: [Other seasonal allergic rhinitis] Onset: 02-12-2023 01-17-2023 Chronic Other upper respiratory infections (20 sources) Sinusitis; Translations: [Chronic sinusitis] Onset: 12-23-2021 12-23-2021 Chronic Otitis media and related conditions (20 sources) Finding of fluid behind tympanic membrane; Translations: [Unspecified nonsuppurative otitis media, bilateral] Onset: 07-28-2023 01-17-2023 Episodic Residual codes; unclassified (2 sources) Hypersomnia; Translations: [Hypersomnia, unspecified] Onset: 12-24-2023 12-24-2023 Chronic Residual codes; unclassified (8 sources) Patient encounter status; Translations: [Other specified [...] disc disorders; other back problems (20 sources) Low back pain; Translations: [Low back pain] Onset: 02-12-2023 Resolved: 02-12-2023 02-12-2023 Episodic Superficial injury; contusion (1 source) Contusion of left lesser toe; Translations: [Contusion of left lesser toe(s) without damage to nail, initial encounter] 09-12-2023 Episodic Thyroid disorders (20 sources) Central hypothyroidism; 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] Onset: 03-23-2022 09-07-2019 Chronic Unclassified (20 sources) Patient encounter status 09-17-2020 Urinary tract infections (1 source) Urinary tract infectious disease 07-18-2024 Episodic Varicose veins of lower extremity (20 sources) Varicose veins of lower extremity with inflammation 05-06-2021 Episodic Viral infection (2 sources) Verruca plantaris; Translations: [Plantar wart] 09-12-2023 Episodic Past or Other Problems Problem Classification Problem Date Documented Date Episodic/Chronic Conditions associated with dizziness or vertigo (5 sources) Dizziness; Translations: [Dizziness and giddiness] Onset: 11-08-2012 11-08-2012 Episodic Headache; including migraine (2 sources) Headache; Translations: [Headache] Onset: 12-24-2023 12-24-2023 Episodic Malaise and fatigue (13 sources) Fatigue; Translations: [Other fatigue] Onset: 07-28-2023 01-17-2023 Episodic Menstrual disorders (4 sources) Irregular periods; Translations: [Irregular menstruation, unspecified] Onset: 02-12-2023 Resolved: 02-12-2023 02-12-2023 Chronic Osteoarthritis (8 sources) Osteoarthritis of foot joint; Translations: [Primary osteoarthritis, unspecified ankle and foot] Onset: 02-12-2023 Resolved: 02-12-2023 02-12-2023 Chronic Other congenital anomalies (4 sources) Congenital deformity of toe; Translations: [Congenital deformity of feet, unspecified, unspecified foot] Onset: 02-12-2023 Resolved: 02-12-2023 02-12-2023 Chronic Other congenital anomalies (4 sources) Congenital valgus deformity of foot; 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] Onset: 02-12-2023 Resolved: 02-12-2023 02-12-2023 Chronic Other ear and sense organ disorders (10 sources) Pain of ear structure; Translations: [Otalgia, unspecified ear] Onset: 02-12-2023 01-17-2023 Episodic Sprains and strains (4 sources) Sprain of cruciate ligament of knee; Translations: [Sprain of unspecified cruciate ligament of unspecified knee, initial encounter] Onset: 02-12-2023 Resolved: 02-12-2023 02-12-2023 Episodic Syncope (5 sources) Near syncope; Translations: [Syncope and collapse] Onset: 11-08-2012 11-08-2012 Episodic Unclassified (20 sources) Body mass index 20-24 - normal 03-05-2020 Unclassified (20 sources) Strain of fascia of lower back 09-17-2020 Results Test Name Value Interpretation Reference Range Facility C Urineon 07-20-2024 Bacteria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 is 38 pg/mL, in males 51 pg/mL. The results should be used in conjunction with clinical conditions of myocardial infarction. (Access High Sensitivity Troponin I Instructions For Use, [employer]ila Clementon, March 2018) Urea nitrogen [Mass/Vol] 15 mg/dL Normal 5 - 21 mg/dL [facility] Urea nitrogen/Creatinine [Mass ratio] 21 mg/mg High 10 - 20 [facility] COAGULATIONOrdered By: Michael Luna on 04-22-2024 aPTT Coag (PPP) [Time] 30.7 s Normal 25.1 - 36.5 second(s) [facility] Comment on above: Interpretive Data: Anisha arameter 15 days - 4 weeks 1 - [...] the same coagulation reagent and instrumentation as [facility]. Currently there are no coagulation studies available worldwide for children to 14 days, and no normal ranges. Heparin therapeutic range (represented by Anti-Factor Xa activity of 0.2 - 0.4 U/mL) corresponds to PTT of 56.6 - 109.0 sec. INR Coag (PPP) [Relative time] 0.99 {INR} Invalid Interpretation Code [facility] Comment on above: Interpretive Data: I NR results are specifically intended to assess patients stabilized on long-term Anticoagulation therapy suggested INR s Less Intensive Anticoagulation 2.0 3.0 Conventional Range 3.0 4.5 PT Coag (PPP) [Time] 11.1 s Normal 9.4 - 1 2.5 second(s) [facility] Comment on above: Interpretive Data: 1 5 days - 4 weeks 1 - 5 months 6 -11 months 1-5 years 6-10 years 11 -17 years Mean: 11.2 (9.5-12.6) Mean: 11.0 (9.7-12.8) Mean: 11.0 (9.8-13.0) Mean: 11.3 (9.9-13.4) Mean: 11.7 (10.0-14.6) Mean: 11.8 (10.0 - 14.1) Pediatric Reference ranges were obtained from a study by juani Stewart al. prepared from 1437 samples obtained at 7 different centers using the same coagulation reagent and instrumentation as [facility]. Currently there are no coagulation studies available worldwide for children to 14 days, and no normal ranges. ED Clinical Summaryon 2023 ED Clinical Summary ED Clinical Summary [place] [id number] ED Clinical Summary Person Information Name: SAVANAH BYERS [facility] Age: 53 Years : 1970 Sex: Female Language: Indian PCP: Sara Flood Marital Status: Visit Id: [...] 22:57:09 04/22/2024 22:57:09 04/22/2024 22:57:09 ADDRESS: [address] [facility] [id number] PHYS DOC NOTES: MEDICAL INFORMATION: Prescriptions Given: Medications to Continue Taking That Have Changed [facility] [id number], [address] [place] [id number], [phone] START: ondansetron (ondansetron 4 mg Dis Tab) [...] every day. fluticasone nasal (Flonase 0.05 mg/inh Iroquois) 2 Sprays Nasal Inhalation every day. each [...] .. Refills: 0. omega-3 polyunsaturated fatty acids ([place]-3 Fish Oil) 1 tab By Mouth every day. oxcarbazepine (Trileptal 300 mg Tab) 1.5 tab(s) Oral Bedtime. rimegepant (Nurtec ODT 75 mg oral tablet, disintegrating) semaglutide (Wegovy (0.25 mg dose) subcutaneous solution) 0.25 Milligram Subcutaneous every week. Refills: 0. suvorexant (Belsomra 20 mg oral tablet) 1 Tablets By Mouth once a day (at bedtime). g47.0. Refills: 1. PATIENT EDUCATION INFORMATION: Instructions: Nausea, Adult, Vrrj-au-Safq; Abdominal Pain, Adult, Clcf-oc-Qyby Follow up: With: Address: When: Sara Howard [employer], [address], [address] [address] Business (1) In 3 days 04/25/2024 DIAGNOSIS: 1:Nausea in adult; 2:Abdominal pain of unknown etiology Normal [facility] ED Patient Summaryon 024 ED Patient Summary ED Patient Summary [address] [address] Patient Discharge Instructions Person Information Name: SAVANAH BYERS Age: 53 Years Arrival Date: 04/22/2024 18:34:34 Discharge Diagnosis: 1:Nausea in adult; 2:Abdominal pain of unknown etiology Primary Care Physician: Sara Flood Provider Information Primary Provider: Aron Echevarria DO Advanced Horse Trader:None The exam and treatment you received in the Emergency Department were for an urgent problem and are not intended as complete care. It is important that you follow up with a doctor, nurse practitioner, or physician?s miner assistant for ongoing care. If your symptoms become worse or you do not improve as expected and you are unable to reach your usual health care provider, you should return to the Emergency Department. We are available 24 hours a day. ZEESHANGRETASAVANAH A has been given the following list of patient education materials, prescriptions and follow-up instructions: Follow-up Instructions: With: Address: When: [facility] [address], [address], [address] [address] Business (1) In 3 days 04/25/2024 In the event that this physician does not participate in your insurance network, please consult with your insurance company to find a nearby participating provider. Patient Education Materials: Nausea, Adult, Knsj-vy-Mvsg; Abdominal Pain, Adult, Aank-nk-Lerm A MESSAGE TO ALL PATIENTS REGARDING OPIOIDS PRESCRIPTION OPIOIDS: WHAT YOU NEED TO KNOW Prescription opioids can be used to help relieve fxmrbnkg-sc-zgrndx pain and are often prescribed following a [...] guidance from the Food and Drug Administration (www.fda.gov/Drugs/Re sourcesForYou). ? Visit www.cdc.gov/drugoverd ose to learn about the risks of opioids abuse and overdose. ? If you believe you may be struggling with addiction, tell your health care (more content not included)... Normal [facility] HEMATOLOGYOrdered By: SYSTEM SYSTEM on 04-22-2024 Basophils/100 WBC (Bld) 0.4 % Normal 0.0 - 2.0 % [facility] Basophils/Leukocytes Auto (Bld) [Pure # fraction] 0.0 E9/L Normal 0.0 - 0.2 E9/L [facility] Eosinophils (Bld) [#/Vol] 0.1 E9/L Normal 0.0 - 0.5 E9/L [facility] Eosinophils/100 WBC (Bld) 0.8 % Normal 0.0 - 8.0 % [facility] Erythrocyte distribution width (RBC) [Ratio] 13.0 % Normal 10.9 - 14.2 % [facility] Hematocrit (Bld) [Volume fraction] 37.2 % Normal 34.0 - 46.0 % [facility] Hemoglobin (Bld) [Mass/Vol] 13.2 g/dL Normal 12.0 - 16.0 gm/dL [facility] Lymphocytes (Bld) [#/Vol] 1.6 E9/L Normal 1.0 - 4.0 E9/L [facility] Lymphocytes/100 WBC (Bld) 15.8 % Normal 14.0 - 50.0 % [facility] MCH (RBC) [Entitic mass] 33.2 pg Normal 27.0 - 34.0 pg [facility] MCHC (RBC) [Mass/Vol] 35.6 g/dL Normal 31.4 - 36.0 gm/dL [facility] MCV (RBC) [Entitic vol] 93.3 fL Normal 80.0 - 100.0 fL [facility] Monocytes (Bld) [#/Vol] 0.8 E9/L Normal 0.2 - 1.0 E9/L [facility] Monocytes/100 WBC (Bld) 8.2 % Normal 4.0 - 14.0 % [facility] Neutrophils (Bld) [#/Vol] 7.5 E9/L Normal 2.0 - 7.5 E9/L [facility] Neutrophils/100 WBC (Bld) 74.8 % Normal 36.0 - 75.0 % [facility] Platelet mean volume (Bld) [Entitic vol] 7.3 fL Normal 6.4 - 10.8 fL [facility] Platelets (Bld) [#/Vol] 237.0 E9/L Normal 150.0 - 500.0 E9/L [facility] RBC (Bld) [#/Vol] 4.0 E12/L Low 4.3 - 5.9 E12/L [facility] WBC corrected for nucl RBC Auto (Bld) [#/Vol] 10.0 E9/L Normal 4.0 - 11.0 E9/L [facility] Hep Func Panelon 04-22-2024 Albumin [Mass/Vol] 4.7 g/dL Normal 3.3-5.0 [facility] Comment on above: Performed By: #### 2 [id number] #### [facility] [address] [place] [address] Albumin/Globulin (S) [Mass conc ratio] 1.7 Normal 1.1-2.2 [facility] Comment on above: Performed By: #### 2 [id number] #### [facility] [address] [place] [address] ALP [Catalytic activity/Vol] 103 Int._Unit/L High 21-98 [facility] Comment on above: Performed By: #### 2 [id number] #### [facility] [address] [place] [address] ALT No additional P-5'-P [Catalytic activity/Vol] 34 Int._Unit/L Normal 6-46 [facility] Comment on above: Performed By: #### 2 [id number] #### [facility] [address] [place] [address] AST [Catalytic activity/Vol] 38 Int._Unit/L Normal 5-43 [facility] Comment on above: Performed By: #### 2 [id number] #### [facility] [address] [place] [address] Bilirubin [Mass/Vol] 0.5 mg/dL Normal 0.0-1.1 [facility] Comment on above: Performed By: #### 2 [id number] #### [facility] [address] [place] [address] Bilirubin.direct [Mass/Vol] 0.1 mg/dL Normal 0.0-0.4 [facility] Comment on above: Performed By: #### 2 [id number] #### [facility] [address] [place] [address] Bilirubin.indirect [Mass or moles/Vol] 0.4 mg/dL Normal 0.1-0.9 [facility] Comment on above: Performed By: #### 2 [id number] #### [facility] [address] [place] [address] Globulin (S) [Mass/Vol] 2.8 g/dL Normal 1.4-4.0 [facility] Comment on above: Performed By: #### 2 [id number] #### [facility] [address] [place] [address] Protein [Mass/Vol] 7.5 g/dL Normal 6.0-7.8 [facility] Comment on above: Performed By: #### 2 [id number] #### [facility] [address] [place] [address] Lactic Acidon 04-22-2024 Lactic Acid Lvl 1.6 mmol/L Normal 0.5-2.2 [facility] Comment on above: Performed By: #### 2 [id number] #### [facility] [address] [place] [address] Lipase Levelon 04-22-2024 Lipase [Catalytic activity/Vol] 187 U/L High 13-58 [facility] Comment on above: Performed By: #### 2 [id number] #### [facility] [address] [place] [address] PT & PTTon 04-22-2024 aPTT Coag (PPP) [Time] 30.7 second(s) Normal 25.1-36.5 [facility] Comment on above: Result Comment: Para [...] the same coagulation reagent and instrumentation as [facility]. Currently there are no coagulation studies available worldwide for children to 14 days, and no normal ranges. Heparin therapeutic range (represented by Anti-Factor Xa activity of 0.2 - 0.4 U/mL) corresponds to PTT of 56.6 - 109.0 sec. Performed By: #### 1 [id number] #### [facility] [address] [place] [address] INR Coag (PPP) [Relative time] 0.99 {INR} Invalid Interpretation Code [facility] Comment on above: Result Comment: INR results are specifically intended to assess patients stabilized on long-term Anticoagulation therapy suggested INR?s ?Less Intensive Anticoagulation? 2.0 ? 3.0 Conventional Range 3.0 ? 4.5 Performed By: #### 1 [id number] #### [facility] [address] [place] [address] PT Coag (PPP) [Time] 11.1 second(s) Normal 9.4-12.5 [facility] Comment on above: Result Comment: 15 [...] the same coagulation reagent and instrumentation as [facility]. Currently there are no coagulation studies available worldwide for children to 14 days, and no normal ranges. Performed By: #### 1 [id number] #### [facility] [address] [place] [address] Pre-Arrival Noteon Pre-Arrival Note Pre-Arrival Note Pre-Arrival Summary Name: , [facility] Current Date: 04/22/2024 18:35:11 EDT Gender: Female Date of : Age: 53 Pre-Arrival Type: EMS ETA: 04/22/2024 18:56:00 EDT Primary Care Physician: Presenting Problem: Pre-Arrival User: Deneen Dumont RN Referring Source: Location: [place] Completion Date/Time: 04/22/2024 18:26:00 [facility] Emergency Department Pre-Hospital Report Form Vital Signs: Pre-Hospital Report: Treatment in Route: Response to Treatment: Misc. Issues: Normal [facility] SEROLOGYOrdered By: Michael hunter on 04-22-2024 HCG.beta subunit (U) [Moles/Vol] Negative Normal [facility] Man Sero Troponin 0 Hr.on 04-22-2024 Troponin HS 2.80 pg/mL Low 10.10-27.10 [facility] Comment on above: Result Comment: The 95% CI (Confidence Interval) PPV (Positive Predictive Value) for myocardial infarction in females is 38 pg/mL, in males 51 pg/mL. The results should be used in conjunction with clinical conditions of myocardial infarction. (Access High Sensitivity Troponin I Instructions For Use, [employer], March 2018) Performed By: #### 1 [id number] #### [facility] [address] [place] [address] Troponin 1 Hr.on 04-22-2024 Troponin HS 2.70 pg/mL Low 10.10-27.10 [facility] Comment on above: Order Comment: Due a t 21:00 Result Comment: The 95% CI (Confidence Interval) PPV (Positive Predictive Value) for myocardial infarction in females is 38 pg/mL, in males 51 pg/mL. The results should be used in conjunction with clinical conditions of myocardial infarction. (Access High Sensitivity Troponin I Instructions For Use, [employer], March 2018) Performed By: #### 1 [id number] #### [facility] [address] [place] [address] U BetaHcg Qualon 04-22-2024 HCG.beta subunit (U) [Moles/Vol] Negative Normal [facility] Comment on above: Performed By: #### 2 [id number] #### [facility] [address] [place] [address] UA with Cult Rflxon 04-22-20 24 Bilirubin Ql (U) Negative Normal Negative [facility] Comment on above: Performed By: #### 4 [id number] #### [facility] [address] [place] [address] Clarity (U) Clear Normal Clear [facility] Comment on above: Performed By: #### 4 [id number] #### [facility] [address] [place] [address] Color (U) Light-Yellow Normal Yellow [facility] Comment on above: Result Comment: Micr oscopic readings are only performed on those samples that meet specific criteria set forth by [facility]. Performed By: #### 4 [id number] #### [facility] [address] [place] [address] Epithelial cells.squamous Auto (Urine sed) [#/Area] 0-2 Invalid Interpretation Code [facility] Comment on above: Performed By: #### 4 [id number] #### [facility] [address] [place] [address] Glucose Ql (U) Negative Normal Negative [facility] Comment on above: Performed By: #### 4 [id number] #### [facility] [address] [place] [address] Hemoglobin Auto test strip (U) [Mass/Vol] 2+ mg/dL Abnormal Negative [facility] Comment on above: Performed By: #### 4 [id number] #### [facility] [address] [place] [address] Ketones Auto test strip Ql (U) Negative Normal Negative [facility] Comment on above: Performed By: #### 4 [id number] #### [facility] [address] [place] [address] Leukocyte esterase Auto test strip Ql (U) Negative Normal Negative [facility] Comment on above: Performed By: #### 4 [id number] #### [facility] [address] [place] [address] Mucus Auto Ql (U) Trace Normal Negative [facility] Comment on above: Performed By: #### 4 [id number] #### [facility] [address] [place] [address] Nitrite Auto test strip Ql (U) Negative Normal Negative [facility] Comment on above: Performed By: #### 4 [id number] #### [facility] [address] [place] [address] pH (U) 6.0 [pH] Invalid Interpretation Code 5.0-9.0 [facility] Comment on above: Performed By: #### 4 [id number] #### [facility] [address] [place], [place] [id number] Protein Ql (U) Negative Normal Negative [facility] Comment on above: Performed By: #### 4 [id number] #### [facility] [address] [place] [address] RBC Ql (U) 4-20 Abnormal 0-3 [facility] Comment on above: Performed By: #### 4 [id number] #### [facility] [address] [place] [address] Specific gravity (U) [Rel density] 1.014 Invalid Interpretation Code 1.005-1.030 [facility] Comment on above: Performed By: #### 4 [id number] #### [facility] [address] [place] [address] Urobilinogen (U) [Mass/Vol] Negative Normal Negative [facility] Comment on above: Performed By: #### 4 [id number] #### [facility] [address] [place], [place] [id number] WBC Auto (Urine sed) [#/Area] 0-5 Normal 0-5 [facility] Comment on above: Performed By: #### 4 [id number] #### [facility] [address] [place] [address] Type of Urine collection method Clean Catch Normal [facility] Comment on above: Performed By: #### 4 [id number] #### [facility] [address] [place] [id number] URINALYSISOrdered By: SYSTEM SYSTEM on 04-22-2024 Bilirubin Ql (U) Negative Normal Negativemg/ d L [facility] UA Auto SS Clarity (U) Clear (04/22/24 7:37 PM) Normal Clear [facility] UA Auto SS Color (U) Light-Yellow 1 (04/22/24 7:37 PM) Normal Yellow [facility] Auto SS Comment on above: Interpretive Data: M icroscopic readings are only performed on those samples that meet specific criteria set forth by [facility]. Epithelial cells.squamous Auto (Urine sed) [#/Area] 0-2 graded/HPF Invalid Interpretation Code [facility] UA Auto SS Glucose Ql (U) Negative Normal Negativemg/d L [facility] UA Auto SS Hemoglobin Auto test strip (U) [Mass/Vol] 2+ mg/dL Invalid Interpretation Code Negativemg/d L [facility] UA Auto SS Ketones Auto test strip Ql (U) Negative Normal Negativemg/d L [facility] UA Auto SS Leukocyte esterase Auto test strip Ql (U) Negative Normal NegativeLeu/ uL [facility] UA Auto SS Mucus Auto Ql (U) Trace graded/LPF Normal Negati vegrad ed/LPF [facility] UA Auto SS Nitrite Auto test strip Ql (U) Negative Normal Negativemg/d L [facility] UA Auto SS pH (U) 6.0 *NA* (04/22/24 7:37 PM) Invalid Interpretation Code 5.0 - 9.0 [facility]A Auto SS Protein Ql (U) Negative Normal Negativemg/d L [facility] UA Auto SS RBC Ql (U) 4-20 graded/HPF Invalid Interpretation Code 0-3graded/HP F [facility] UA Auto SS Specific gravity (U) [Rel density] 1.014 *NA* (04/22/24 7:37 PM) Invalid Interpretation Code 1.005 - 1.030 [facility] UA Auto SS Urobilinogen (U) [Mass/Vol] Negative Normal Negativemg/d L [facility] UA Auto SS WBC Auto (Urine sed) [#/Area] 0-5 graded/HPF Normal 0-5graded/HP F [facility] UA Auto SS URINALYSISOrdered By: Vickie Escalante on 04-22-2024 UA Spec Desc Clean Catch (04/22/24 7:37 PM) Normal [facility] UA Auto SS eGFRon 04-22-2024 eGFR 104 mL/min/1.73 m2 Normal >=59 [facility] Comment on above: Order Comment: Order added by Discern Expert. Performed By: #### 1 [id number] #### [facility] [address] [place] [address] Ambulatory Visit Summaryon 0 04-12-2024 Ambulatory Visit [...] oral tablet) fluticasone nasal (Flonase 0.05 mg/inh Iroquois) hydrOXYzine (hydrOXYzine hydrochloride 25 mg Tab) lamotrigine (lamotrigine 200 mg Tab) losartan (losartan 50 mg Tab) multivitamin (Multi Vitamin+) naproxen (naproxen 500 mg Tab) omega-3 polyunsaturated fatty acids ([place]-3 Fish Oil) oxcarbazepine (Trileptal 300 mg Tab) [...] loss Where: [address], [address] [address]- Medications What How Much When Why Instructions New ondansetron (Zofran 4 mg Tab) 1 Tablets By Mouth Every 6 hours as needed for Nausea Nausea Pickup at [facility] [address] New semaglutide (Wegovy (0.25 mg dose) subcutaneous solution) 0.25 Milligram Subcutaneous Every week Hypertension HLD (hyperlipidemia) BMI 28.0-28.9,adult Overweight Encounter for weight loss counseling Pickup at [facility] [address] Unchanged acetaminophen (Tylenol Extra Strength 500 [...] Unchanged fluticasone nasal (Flonase 0.05 mg/ inh Iroquois) 2 Sprays Nasal Inhalation Every day Left [...] or concerns Unchanged omega-3 polyunsaturated fatty acids ([place]-3 Fish Oil) 1 tab By Mouth Every [...] physician if questions or concerns Pharmacy Information [facility]: [address] [place], [place] [id number] [phone] What How Much When Why Comments Stop Taking b (more content not included)... Normal [facility] Family Medicine Office/Clini c Noteon 04-12-2024 [...] due to work commitments. She typically consumes [place] yogurt and a granola bar, and a [...] for her (more content not included)... Normal [facility] Comment on above: Result Comment: Elec [...] numbness, elbow and neck discomfort. Pain Assessment Provocation/Palliatio n Onset: Last week What makes pain better:Medication [...] any trauma to the area. 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 [...] pain management. She is employed in the [facility] department at [facility], where she is required to lift [...] it to a local compounding pharmacy called [facility]. Hypertension: The patient's blood pressure is elevated [...] appearing, _pleasant (more content not included)... Normal [facility] Comment on above: Result Comment: Elec [...] oral tablet) fluticasone nasal (Flonase 0.05 mg/inh [place]) hydrOXYzine (hydrOXYzine hydrochloride 25 mg Tab) lamotrigine (lamotrigine 200 mg Tab) losartan (losartan 50 mg Tab) multivitamin (Multi Vitamin+) naproxen (naproxen 500 mg Tab) omega-3 polyunsaturated fatty acids ([place]-3 Fish Oil) oxcarbazepine (Trileptal 300 mg Tab) [...] as directed on package labeling Pickup at [facility] #37 Changed buPROPion (Wellbutrin SR 150 mg Tab-ER) 1 Tablets By Mouth 2 times a day Encounter for weight loss counseling Adult BMI 28.0-28.9 kg/sq m Overweight Pickup at [facility] #37 Unchanged acetaminophen (Tylenol Extra Strength [...] Unchanged fluticasone nasal (Flonase 0.05 mg/ inh [place]) 2 Sprays Nasal Inhalation Every day Left [...] or concerns Unchanged omega-3 polyunsaturated fatty acids ([place]-3 Fish Oil) 1 tab By Mouth Every [...] physician if questions or concerns Pharmacy Information [facility] #37: [address] [place], [place] [id number] [phone] What How Much When Why Comments Stop Taking naltrexone (naltrexone 4.5 mg oral capsule) 2 Capsules By Mouth Every day Encounter for weight loss counseling Allergies penicillins Vicodin (migraines for 2 weeks) Problems Ongoing - Any problem that you are currently receiving treatment for. Allergic reaction to tattoo ink Bipolar I disorder, mi (more content not included)... Normal [facility] Family Medicine Office/Clini c Noteon 02-02-2024 [...] her back pain worse. She visits her ykirqf-mp-pnj, who is a therapist, every two weeks. [...] to move (more content not included)... Normal [facility] Comment on above: Result Comment: Elec [...] oral tablet) fluticasone nasal (Flonase 0.05 mg/inh [place]) hydrOXYzine (hydrOXYzine hydrochloride 25 mg Tab) lamotrigine (lamotrigine 200 mg Tab) losartan (losartan 50 mg Tab) multivitamin (Multi Vitamin+) omega-3 polyunsaturated fatty acids ([place]-3 Fish Oil) oxcarbazepine (Trileptal 300 mg Tab) [...] as directed on package labeling Pickup at [facility] #[facility] New naltrexone (naltrexone 4.5 mg oral capsule) 2 Capsules By Mouth Every day Encounter for weight loss counseling Pickup at [facility] #37 Changed buPROPion (Wellbutrin SR 150 mg Tab-ER) 1 Tablets By Mouth Every day Encounter for weight loss counseling Pickup at [facility] #37 Changed naproxen (naproxen 500 mg Tab) 1 Tablets By Mouth 2 times a day Cervical spine pain Overweight Adult BMI 28.0-28.9 kg/sq m take 14 days BID . Pickup at [facility] #[facility] Unchanged acetaminophen (Tylenol Extra Strength [...] Unchanged fluticasone nasal (Flonase 0.05 mg/ inh [place]) 2 Sprays Nasal Inhalation Every day Left [...] or concerns Unchanged omega-3 polyunsaturated fatty acids ([place]-3 Fish Oil) 1 tab By Mouth Every [...] physician if questions or concerns Pharmacy Information [facility] #37: [address], [place] [id number] [phone] Allergies penicillins Vicodin (migraines for 2 weeks) Problems Ongoing - Any problem that you are currently receiving treatment for. Allergic reaction to tattoo ink Bipolar I disorder, mild, c (more content not included)... Normal [facility] Patient Educationon 01-31-20 24 Patient Education Cardiovascular [...] oz glass (more content not included)... Normal [facility] Coding Summary.on 01-30-2024 Coding Summary. KRDFRzsj36YYk2yPf+PG h lYWQ+AE5KYGQfC93wxYNs wE1pZ7CQGRuLWrgyRFFHW SbJZkRjvlHvSS9zzSVhQT Ju IC8+HZ6nGZQvPvzmyNVqw 6G9fQL6A86tes3rVZbztN E3VGClZvTfyvgck1pzmJx 6IDcuNmluOyBt AFAyhE11OSR3pB42Ln52t VOvcARkg1eavMw2HrZyCV BgTPM3zAonWNloi2YpOCY dI03lcILmp7J0 XNQjuPzxaTNfBwXnkGD3n L9zYIkaxnuje5lpzsjsKl q4yw63lNSue0H8lXA4T9C awkE7GKTdeROv RahxoQCBbI9likzcx3yrz quqGjMpGBOqJQj3MYq8JW MwxZvnKjZgWX30TWH7XKR lucBcO3DcIIUk gKomUyS9l5C9Sf3HZ1EGM xxrP6SNEIIIWLrgtNE+PC 33kn85A9NjScspWfp8EXI tNZE5lYO3oG1z IAXpQWaws3S7eIS7B3Xyn mXkzx4lg3cqMOPvKLdgR9 7fbKIuv1X5VEMuiEE9KTV vhKopOwMciR27 Oyc+ZNOjrHcle6MxVyqla 4gjy0isjCu4IhfaZBLchc LgwBlhMZH3u1QrMm7iBTA taGN7xTA5tY2r MyCgMqG8UEppP950GvHcc DKkMxreD66vE7HqmOO+PH DdPak2WUUylIruAD4tK5L hZGRpbmctbGVm iFfpZR3sCYOghshfIZVeo K1pIJNhC8c0VyVtYdT5RZ qdG1PlLJZlwnonBd56fD8 nQpJaHdM8CKgk P9MowjV6HPVpnEKgZCpxS XG6D41zu8J5NZZzIKAnJW H1yXC7fK6rvRcjiorpxQB mdDsgdmVydGlj VUveZPryZ251CTTvrApeC kNvZGluZyBEYXRlOiAgMD YvMjUvMjAyNDwvdGQ+PHR pWMY3hJsmNLCj hSTfYUihWh2njUpwbZjlJ W2sPSSfvyoeZCAbcF2bRZ YvqFYurBjcEN7wJADsdyf po419GtQlSYA4 CUGpzSSxV4XglO4qExNpZ SYkNBKoQ8GcqQLsMDyyP0 15TEkkQmX6HWItviSeA3P sLWFsaWduOiB0 j4J8Md1Rg4VznahdL9Ozi ZUlJgVgNmpqLHx9P3VlIp wvdHI+CS97OKFfQP47ZTl 7XPJ9lFlvEBhk NNDlV6PsaT8lFtOtBANpL GRkOyc+PHRhYmxlIHdpZH RoPScxMDAlJyBzdHlsZT0 eMl6hQTDbKNMy wTgrrFZjUfSjj2hfHXVbE PjiON3bqMswK8BcaJX2XG Icj7k9Fj85J98jJ1QbpCF +XIVtaLA5lKQ7 fH2jMaXoCdO4JHujF758A kAiaCHnMffwi9stt5hliD q5ZpE6EDWgxdRbrLkjWUA 6l2HaJc77N07k IHdpZHRoPSIxNSUiIHZhb Dsvnp1fpK7bSu0+PGNvbC T6tVO3bT3wCaNoWuL1RCq vR712JlWcwDGy Pkqnk1oxx1gplGb8LcZoC WVflxLnmTrtFJT3z9VkGm 73C1UjeZcsg2BnXdh9lh6 9aTHmn2S3jEF5 C7ZbBOPvpyxrpBZilEyoP D0zEPZxfmarZNHzoC2gRG IlH4d1HsGvApB6SNfeY4Z dfkK3NHHqqNZj SUQoqRHHkA0jxpinn2iyo avaQyDcEGGgDOc4SQc7MJ GcpEebPsRfCEQ1VhT6SUG 1vEHrpV4nnJdm hxjvyJ8oFel+LGI4pUCav PQJXA8hVytocEQ+PHRkIH E5cQpgWBnoQBEtzZ3lYLZ sX8m7ZoHgNaY1 IFrgG0LlyfL9FMWcpNQbU TYszKBSvL2oqpvip8hwsv cwYcKzYUIlESr2SNy3EOU saWduOiBsZWZ0 IiP3OWD3aQNfsH3hxVyxy nfbqX5hVip+QmlydGggRG S9YZd9J7ZpYxp7FQFmjVs bTL5laJMnHPjr Qu5naZbfgOlaXX0eTRVlx yezw293RiOcz7igFSCjvT PuGAvkSJV5Y93dp1I3CTA fSJElWIV5xRD5 lM0knWtcyivynKXekFocx uCykZsnOAefVCyeV105IS SzzFkuYjTwPYa5K6SlHrq 5STLdnZedAE4j xBSeVSogGe5hvIwuvRosB Y0lXXUropitt541NeSuo6 loCNTryJWvZBxeABQ0K28 gj9G9PAXmSIRz XDQ4hTY1mA0hbDizhsekp GVmdDsgdmVydGljYWwtYW izX532WOLyaFznGjFujOp 3T4GbApc4ZRHs bHeiLZ6wxBClZZyeBu8vh ZvqhTizTY2cXHQvytcae5 97YcAdt8iuPMNmyILaYPr fOSU3Y53xc4U0 USUlYWRrOVX5bSG6sX6wp GlnbjogbGVmdDsgdmVydG xwQRdpVLzrD901DUPsaVs nPlBhdGllbnQg VLdpQVc9X9HiNzxjgQE+P E91CVIuPO20aNMjiRUvc6 ykbPr8CuPbKVLzONR2eHv uZVocu5EfQSMs G67ilVRao8H6KQYmsUbyw RQuLoIoyNA4dU6dHAsdbe xlf1pyeisqSroip0snoa7 0hS57D58dLJqh ZHRoPSIzMCUiIHZhbGlnb o2iaO6xIv5+NKQbdTL8wF U2jO7jYTWpJpX1FFfmH34 9InRvcCIvPjxj g5ghf2yxfPg9IqS2MELcl rWiqWztUIC2u7PkJf92Q9 9sIHdpZHRoPSIyMCUiIHZ aiTmawq3yxK8i Ii8+DNOkmSY5uGI8aA4rW mMoUkL8VRvqH307EuWgpO UrOnptW50dC6SlkGM+PHR oGtp1HFIlvZfm QB5boMBlTXlnYp7wXGF7V iApEiLhEYfhR8TkDAUcni gnzshixGQ3DWBrPBEucL2 9Ng5gcKbqHZBr mTNOsI1hkohbh9holszrX hKqXJGnKLn1IBs3CNOqbR nkNzQvPQG8ZdO1IUB7rKN dbE5zaAntevqu tB0gR0LlWCFjsjdcQk00t T5eGqWsUpM3NApvTzm+Q0 FNUCwgSkVOTklGRVIgQTw vdGQ+PHRkIHN0 cTxgCEjwWVRcjJ2rDHPmB 8f4XkVlLmT0PLcvK0MrFL HaibbaTp52zB8nYpSfJaN 9MKhbU6DjrhQ7 RDKrqOFiQDacJBW9Q77ln 2C4XKQcBWFdTKY3rZT4pT 1hbGlnbjogbGVmdDsgdmV ydGljYWwtYWxp W494SIUvoPodCqFqMwO0O jV2LuB7U9BzBcv9RUXrnZ gwXA4uyNZvKEdvJc4taJp tgPpnCR2bANKr zwodYKNovF6oZERaqHLcu RprBC8hSIRkuanbt912Ho WpLOK3HDJurYPzH5WnjC9 yOiAjMDAwMDAw L9CxrTGwDOpfA563IOxwE tH6CMYqubHmS4GbDDHjfA rcIwM8i0Y2Di51HtLBYAE yczwvdGQ+PHRk RLK7iCtkEGohWZZsnU3uM CJnE0i1PmTqNdJ1PVmkK6 YnIBIinquaVs17sU2zFfL uVbT1EFxsR6Yn scE2VSCgtCVvKIvcKXU1P 99mt0O9FWVlOWDtJRH4zU Q1kP9zgDhgazyeeEOesXr gdmVydGljYWwt EVbrM981ZWGdhTvuKhFaq WFsZTwvdGQ+VEPiBPX8pY owUZdnEPGweN5lUZFrY5f 6SlJnUlD2KHwq B7ClIOKrnvmyMv67oC5pO tYpHeY4PMrxB6JocsH2MH GwvCJvIXjtBLE3E73cr6X 6ZHPdHUYlZQN8 yAV9rM5tiOtjysbaqIUqz DsgdmVydGljYWwtYWxpZ2 20IRLqlVhqGf83zDVqlXa waoC5I0SiXvrq dHI+XJ89CHWeCL65tRBrm OCje2hbvYo1VwVfRPOqGO P5jTywCScdf4NcCFQhZ64 naAEfe0E3NTOg aFkydVDyVpNzhPV7dZ2vF Svllqwcq0sukrfzDwgtq3 vldg81hX31Y48vJLzoCMM oPSIzMCUiIHZh hIcenl9njS3vSa5+PGNvb DE5sOO2pG6yHjLwPmR7VP ruV157SlBknNNpMoasm8g hf5ksjMj1EhHj ERKnyaTtzItqAJY3c2JfB a44C95nWZbbYBJuIIPsYD ZeARPljInfuv0qlA2kPh9 +GR2xs8dgzz55 pJ37sFE+YDYnDJA9qHxjE CkqVOFkhY1hWLfvOeV2XN KbUdHrqW30xOWqIAfnMi5 ipJstpCktXM4x XPYollcng397KuAsz6ugI OLiyRCwKDmpTMA1C08kh2 E6SOYvKJJfUCE1vIK1cB6 hbGlnbjogbGVm dDsgdmVydGljYWwtYWxpZ 474UEKafScpBcKmsCJcO1 vraeZVDC3cGdrcwGA+PHR fMQI5wTnwMNpt UOWcrO9dHYQyI2s1WwQsG qA5CLsaE0ZfocA3GWScwY VcUOVbhTKFiM3hukioo1f vcjogIzAwMDAw OLr2CBa2KGAczDfaOmAmH UP5IsF8VLJ5uVVvqD5ghW duxjwqyL8nUfp+RklOOjw vdGQ+PHRkIHN0 rOsrSVswVKAexA6iCZYgA 2a5FtUqWlX7PZhdP7Chxb K7YKCekPLkELHbhUMDyN7 dnesmt8qkaqqq StZpOOQhQOv1VDu3XCAtg UgxOoPdUAE5DwY1AQA8wR MozR8ndBtundkejH2eDoi +TVJOOjwvdGQ+ QYQvRGC0jBkwKEmiADLbn F9eESIbX6u0PyAiIeI9WM fhS5LucrM1OAQobOToZEH vcKBIvO5odmlt e9zuvzjhFrMfGKOpKNn8S Pg1PUHenXgnVfUnBUC3Ri E0CRI8vHYrxZ2qpDxsgwr cuQ5qOer+UGF5 NCO1GQ79FV40U6NsHwuvc GFibGU+PHRhYmxlIHdpZH RoPScxMDAlJyBzdHlsZT0 pBj2rGLUxBVAu bGxhcHNlOiBjb (more content not included)... Normal [facility] MA Mamm Screen w/CAD if perf [...] VERY IMPORTANT TO YOUR HEALTH. THE CURRENT [employer] [...] Ji Saunders MD Transcribed by: NOREEN Technologist: [facility] Assessment: BI-RADS Category 1-Negative Recommendation: Normal interval follow-up Normal [facility] Consent for Treatmenton 01-05 Consent for Treatment [id number] .00TIFF Normal [facility] CBC w/ Auto Diffon Basophil Absolute 0.0 E9/L Normal 0.0-0.2 [facility] Comment on above: Performed By: #### 2 398304, 82374773, 0614703, 6660389, 8702507, 443594765, 395385306, 8852055 ####[facility] [address] [place] [address] Basophils/100 WBC (Bld) 0.8 % Normal 0.0-2.0 [facility] Comment on above: Performed By: #### 2 972504, 23018714, 3367526, 8091636, 1686886, 016103642, 665654122, 2344795 ####[facility] [address] [place] [address] Eos Absolute 0.2 E9/L Normal 0.0-0.5 [facility] Comment on above: Performed By: #### 2 410697, 49385943, 3697962, 4758800, 9035723, 498880425, 449728667, 8591105 ####[facility] [address] [place] [address] Eosinophils/100 WBC (Bld) 3.7 % Normal 0.0-8.0 [facility] Comment on above: Performed By: #### 2 474924, 11922073, 7781401, 2894274, 9577004, 840210738, 821887126, 2763481 ####[facility] [address] [place] [address] Erythrocyte distribution width (RBC) [Ratio] 13.8 % Normal 10.9-14.2 [facility] Comment on above: Performed By: #### 2 997732, 45331659, 9472763, 7488579, 6654887, 669588376, 532298146, 6610024 ####[facility] [address] [place] [address] Hematocrit (Bld) [Volume fraction] 39.0 % Normal 34.0-46.0 [facility] Comment on above: Performed By: #### 2 238637, 34221154, 0471120, 9752811, 7585480, 869958183, 311625569, 0099098 ####[address] [place] [address] Hemoglobin (Bld) [Mass/Vol] 13.2 g/dL Normal 12.0-16.0 [facility] Comment on above: Performed By: #### 2 120489, 63185907, 7439985, 3068395, 5872639, 953772569, 495405494, 7396333 ####[address] [place] [address] Lymph Absolute 2.5 E9/L Normal 1.0-4.0 [facility] Comment on above: Performed By: #### 2 031407, 91099806, 5691254, 0723764, 3218007, 597694883, 627539602, 0463669 ####[address] [place] [address] Lymphocytes/100 WBC (Bld) 43.2 % Normal 14.0-50.0 [facility] Comment on above: Performed By: #### 2 784220, 91257089, 9910919, 1652531, 9433485, 504675535, 489419245, 4169744 ####[facility] [address] [place] [address] MCH (RBC) [Entitic mass] 31.5 pg Normal 27.0-34.0 [facility] Comment on above: Performed By: #### 2 395093, 78572903, 6818534, 5732451, 9585717, 219265923, 894501849, 2001813 ####[address] [address] MCHC (RBC) [Mass/Vol] 33.5 g/dL Normal 31.4-36.0 [facility] Comment on above: Performed By: #### 2 491405, 48414940, 5735787, 7320075, 4833940, 185994724, 924929050, 3199191 ####[facility] [address] [place] [address] MCV (RBC) [Entitic vol] 94.0 fL Normal 80.0-100.0 [facility] Comment on above: Performed By: #### 2 851196, 41572696, 0347250, 8798314, 1459696, 077818620, 847498688, 1123067 ####[facility] [address] [place] [address] [place] Absolute 0.5 E9/L Normal 0.2-1.0 [facility] Comment on above: Performed By: #### 2 548568, 63294088, 2247605, 3848227, 2073788, 295189989, 454103776, 0419116 ####[facility] [address] [place] [address] Monocytes/100 WBC (Bld) 8.0 % Normal 4.0-14.0 [facility] Comment on above: Performed By: #### 2 147964, 19093234, 7695778, 7446190, 9253908, 891551697, 450138055, 8137066 ####[facility] [address] [place] [address] Neutro Absolute 2.6 E9/L Normal 2.0-7.5 [facility] Comment on above: Performed By: #### 2 647888, 61440092, 6171795, 1056299, 1776664, 662205841, 053431446, 5545518 ####[facility] [address] [place] [address] Neutro Auto 44.3 % Normal 36.0-75.0 [facility] Comment on above: Performed By: #### 2 093243, 29880484, 0939794, 5982946, 7563076, 730057866, 994139041, 2386913 ####[facility] [address] [place] [address] Platelet 305.0 E9/L Normal 150.0-500.0 [facility] Comment on above: Performed By: #### 2 831538, 27007557, 1916652, 9600413, 7426465, 447493249, 423710414, 7672941 ####[facility] [address] [place] [address] Platelet mean volume (Bld) [Entitic vol] 7.3 fL Normal 6.4-10.8 [facility] Comment on above: Performed By: #### 2 651715, 14185317, 6153428, 5296972, 7250018, 182708335, 712765549, 9837605 ####[facility] [address] [place] [address] RBC 4.2 E12/L Low 4.3-5.9 [facility] Comment on above: Performed By: #### 2 819627, 81011594, 7347283, 0748749, 9006261, 921204868, 565825470, 1969499 ####[facility] [address] [place] [address] WBC 5.8 E9/L Normal 4.0-11.0 [facility] Comment on above: Performed By: #### 2 407655, 01884979, 6669510, 9433271, 8964463, 917131033, 981367605, 1268689 ####[facility] [address] [place] [address] CHEMISTRYOrdered By: SYSTEM SYSTEM on 09-28-2023 Albumin [...] (Bld) [Mass fraction] 5.5 % Normal <=5.9% [facility] ChemAutoSS CMPon 09-28-2023 Albumin [Mass/Vol] 4.6 g/dL Normal 3.3-5.0 [facility] Comment on above: Performed By: #### 2 497076, 11705339, 0045953, 8367770, 1580668, 906994273, 283641380, 4169232 ####[facility] [address] [place] [address] Albumin/Globulin [Mass ratio] 1.6 {ratio} Normal 1.1-2.2 [facility] Comment on above: Performed By: #### 2 486251, 12685834, 9050499, 9976370, 1759888, 362000542, 875784373, 5689353 ####[facility] [address] [place] [address] Alk Phos 96 Int._Unit/L Normal 21-98 [facility] Comment on above: Performed By: #### 2 546200, 16333180, 3586072, 5272009, 4108631, 617262854, 764971161, 3645034 ####[facility] [address] [place] [address] ALT 29 Int._Unit/L Normal 6-46 [facility] Comment on above: Performed By: #### 2 494394, 56875875, 3218113, 4823153, 0737653, 133112261, 907846054, 5477314 ####[facility] [address] [place] [address] Anion gap [Moles/Vol] 11 mmol/L Normal 6-16 [facility] Comment on above: Performed By: #### 2 911297, 07306149, 7680821, 1577202, 1981965, 392175470, 037809513, 9402749 ####[facility] [address] [place] [address] AST 29 Int._Unit/L Normal 5-43 [facility] Comment on above: Performed By: #### 2 860108, 14214723, 6891749, 0916245, 8929779, 499986269, 949742049, 9894172 ####[facility] [address] [place] [address] Bili Total 0.6 mg/dL Normal 0.0-1.1 [facility] Comment on above: Performed By: #### 2 665805, 46788723, 5183586, 7668615, 9514253, 191347026, 757026630, 6404168 ####[facility] [address] [place] [address] BUN/Creat Ratio 18 No Units Normal 10-20 [facility] Comment on above: Performed By: #### 2 734000, 38005110, 0574753, 4314702, 2664291, 702955162, 199788325, 1591068 ####[facility] [address] [place] [address] Calcium [Mass/Vol] 10.6 mg/dL Normal 8.9-11.1 [facility] Comment on above: Performed By: #### 2 620331, 83955970, 3735069, 5465407, 4160930, 983718161, 462072572, 3266527 ####[facility] [address] [place] [address] Chloride [Moles/Vol] 105 mmol/L Normal 101-111 [facility] Comment on above: Performed By: #### 2 382336, 18127785, 7859780, 0573640, 2209485, 535965153, 317087505, 1231279 ####[facility] [address] [place] [address] CO2 [Moles/Vol] 30 mmol/L Normal 21-31 [facility] Comment on above: Performed By: #### 2 463734, 45087071, 6565537, 0457315, 7222254, 423124796, 421358530, 5714586 ####[facility] [address] [place] [address] Creatinine [Mass/Vol] 0.9 mg/dL Normal 0.5-1.3 [facility] Comment on above: Performed By: #### 2 095629, 99496581, 5073526, 4456340, 6970425, 018241321, 916136902, 3988577 ####[facility] [address] [place] [address] Globulin (S) [Mass/Vol] 2.8 g/dL Normal 1.4-4.0 [facility] Comment on above: Performed By: #### 2 671757, 82418043, 1268529, 0328473, 5769776, 250396209, 440207321, 3951437 ####[facility] [address] [place] [address] Glucose [Mass/Vol] 91 mg/dL Normal 55-199 [facility] Comment on above: Performed By: #### 2 474297, 99404271, 9387718, 0920958, 4303283, 022056396, 857251481, 3868013 ####[facility] [address] [place] [address] Potassium [Moles/Vol] 4.5 mmol/L Normal 3.5-5.3 [facility] Comment on above: Performed By: #### 2 232508, 01165650, 7760637, 9410849, 8846903, 737873343, 910630896, 1233807 ####[facility] [address] [place] [address] Protein [Mass/Vol] 7.4 g/dL Normal 6.0-7.8 [facility] Comment on above: Performed By: #### 2 089233, 00906613, 8653477, 8076346, 5158107, 599608650, 118111888, 4670288 ####[facility] [address] [place] [address] Sodium [Moles/Vol] 141 mmol/L Normal 135-145 [facility] Comment on above: Performed By: #### 2 639683, 43403257, 9329578, 4949350, 1875176, 393884438, 625376210, 9688616 ####[facility] [address] [place] [address] Urea nitrogen [Mass/Vol] 16 mg/dL Normal 5-21 [facility] Comment on above: Performed By: #### 2 138585, 27186917, 5161943, 1638580, 6231903, 560214674, 696802473, 0986622 ####[facility] [address] [place] [address] Consent for Treatmenton 09-08 Consent for Treatment [id number] Normal [facility] Free T4on 09-28-2023 Free T4 [Mass/Vol] 0.48 ng/dL Low 0.58-1.64 [facility] Comment on above: Performed By: #### 2 678596, 22196630, 9392469, 6349976, 8412083, 559807133, 249286221, 8954367 ####[facility] [address] [place] [address] HEMATOLOGYOrdered By: SYSTEM SYSTEM on 09-28-2023 Basophil [...] Normal 80.0 - 100.0 fL Remisol Heme [place] Absolute 0.5 E9/L Normal 0.2 - 1.0 [...] Normal 4.0 - 11.0 E9/L Remisol Heme [id number] 09-28-2023 HbA1c (Bld) [Mass fraction] 5.5 % Normal <=5.9 [facility] Comment on above: Performed By: #### 2 603634, 31385502, 6359953, 6221933, 6414629, 602788166, 726280767, 6288495 ####[facility] [address] [place] [address] Lipid Panelon 09-28-2023 Cholesterol [Mass/Vol] 238 mg/dL High 120-200 [facility] Comment on above: Performed By: #### 2 595541, 97111541, 5305592, 9830657, 9561564, 635303196, 078517771, 5879817 ####[facility] [address] [place] [address] Cholesterol in HDL [Mass/Vol] 53 mg/dL Invalid Interpretation Code [facility] Comment on above: Result Comment: '>= 60 LOW RISK' '<= 40 HIGH RISK' Performed By: #### 2 898618, 58187911, 1402142, 0034201, 1164179, 872047311, 143412125, 2776768 ####[facility] [address] [place] [address] Cholesterol in LDL [Mass/Vol] 158 mg/dL High <=129 [facility] Comment on above: Performed By: #### 2 981277, 69422237, 8859634, 8221834, 0310098, 303708685, 442861104, 8737607 ####[facility] [address] [place] [address] Cholesterol in VLDL [Mass/Vol] 29 mg/dL Normal 7-40 [facility] Comment on above: Performed By: #### 2 170450, 73844877, 3079491, 6076668, 8499224, 420357199, 386153078, 0896283 ####[facility] [address] [place] [address] Triglyceride [Mass/Vol] 143 mg/dL Normal <=149 [facility] Comment on above: Performed By: #### 2 967565, 70702812, 0291633, 1763013, 1306258, 957892401, 609816471, 0602113 ####[facility] [address] [place] [address] TSHon 09-28-2023 TSH Qn 1.43 m[IU]/L Normal 0.34-5.60 [facility] Comment on above: Performed By: #### 2 679526, 62344796, 4155509, 6245056, 5415270, 853038138, 518903810, 4749593 ####[facility] [address] [place] [address] Vitamin D 25 Hydroxyon 09-28 Vitamin D 25 Hydroxy 52.5 ng/mL Normal 30.0-100.0 [facility] Comment on above: Performed By: #### 2 956051, 84731364, 0874299, 7326172, 2941515, 435793376, 553565082, 8182680 ####[facility] [address] [place] [address] eGFRon 09-28-2023 eGFR 77 mL/min/1.73 m2 Normal >=59 [facility] Comment on above: Order Comment: Order added by Discern Expert. Performed By: #### 2 384241, 24294939, 8568921, 1514473, 1427929, 652922449, 798582812, 8485598 ####[facility] [address] [place] [address] XR Foot - left 3 [facility] Result: 09-12-2023: Left foot x-rays, weightbearing AP/MO/LAT views, obtained today shows: no visible sign of any pathology on all three views left 2nd toe: No fracture, stress fracture, periosteal reaction, gas, foreign body, infection, arthritis, tumor, impaction or cartilage damage special attention also given to the 2nd MPJ and surrounding anatomy. [facility] Radiology Study observation (narrative) [facility] Office/Clini c Noteon 09-06-2023 [...] recognition qiana (more content not included)... Normal [facility] Comment on above: Result Comment: Elec [...] mg Tab) fluticasone nasal (Flonase 0.05 mg/inh [place]) hydrOXYzine (hydrOXYzine hydrochloride 25 mg Tab) lamotrigine [...] 11:00 AM EDT With: Sara Flood Where: [facility] Normal [facility] Patient Educationon 08-31-19 Patient Education ENT [...] ears completely after. General instructions ? Take qnbd-zag-wkgfrfw and prescription medicines only as told by [...] treated w (more content not included)... Normal [facility] Provider Letteron 08-29-2023 Provider Letter August 29, 2023 SAVANAH BYERS [address] [place] [phone] : 1970 Dear Savanah Byers , We [...] your prompt attention to this matter. Sincerely, [facility] [address] [place] [address], [place] [address] [facility] Family Medicine Office/Clini c Noteon 08-23-2023 Family [...] ( (more content not included)... Normal [facility] Comment on above: Result Comment: Elec [...] you may need to see an occupational analyst. How is this treated? This condition is [...] and dyes. Medicines ? Take or apply aetv-vfh-xsgujln and prescription medicines only as told by [...] and water are not available, use hand sewer builder. General instructions ? Avoid the substance that [...] away if: (more content not included)... 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 She reports difficulty controlling her cravings. She has migraines worse this time of the year due to weather fluctuations. She normally does not have migraines; however, when she c (more content not included)... Normal [facility] Comment on above: Result Comment: Elec tronically Signed By: Peter RECIPROCATING DRILL OPERATORSara Villalpando\.br\Date and Time Signed: 08/02/23 17:51 EST\.br\Electronically Co-Signed [...] oz glass (more content not included)... Normal [facility] Consent for Treatmenton 07-07 Consent for Treatment [id number] .00TIFF Normal [facility] MRI Spine Lumbar w/o Contras ton [...] NOREEN Technologist: COURT Technical Comments None Normal [facility] RAD - MRI Screening Formon 1 09-21-2022 RAD - MRI Screening Form [id number] 1.00TIFF Normal [facility] Physician Orderon 07-18-2023 Physician Order [id number]#1 .00TIFF Normal [facility] CHEMISTRYOrdered By: SYSTEM SYSTEM on 01-17-2023 TSH Qn 0.40 m[IU]/L Normal 0.34 - 5.60 mcIU/mL [facility] Remisol Provider Orderson 08-02-2018 Protein mass conc [id number]. 00OTGTIFF Normal [facility] Vital Signs Date Time Vital Sign Value Performing Clinician Facility 06-14-2024 15:32-0500 Diastolic blood pressure 80 mm[Hg] Sara Green [facility] 06-14-2024 15:32-0500 Mean blood pressure 99 mm[Hg] Sara Green [facility] 06-14-2024 15:32-0500 Systolic blood pressure 138 mm[Hg] Sara Green [facility] 06-14-2024 14:58-0500 Blood Pressure Location Sara Green [facility] 06-14-2024 14:58-0500 Diastolic blood pressure 80 mm[Hg] Sara Green [facility] 06-14-2024 14:58-0500 Heart rate 78 /min Sara Green [facility] 06-14-2024 14:58-0500 SaO2% (BldA) [Mass fraction] 98 % Sara Green [facility] 06-14-2024 14:58-0500 Systolic blood pressure 140 mm[Hg] Sara Green [facility] 05-17-2024 14:07-0400 Blood Pressure Location Sara Green [facility] 05-17-2024 14:07-0400 Body temperature 98.06 [degF] Sara Green [facility] 05-17-2024 14:07-0400 Diastolic blood pressure 64 mm[Hg] Sara Green [facility] 05-17-2024 14:07-0400 Heart rate 87 /min Sara Green [facility] 05-17-2024 14:07-0400 Respiratory rate 18 /min Sara Green [facility] 05-17-2024 14:07-0400 SaO2% (BldA) [Mass fraction] 99 % Sara Green [facility] 05-17-2024 14:07-0400 Systolic blood pressure 118 mm[Hg] Sara Green [facility] 04-23-2024 15:15-0400 Body height 172.7 cm Geena JAIME Work Phone: [facility] 04-23-2024 15:15-0400 Body mass index (BMI) [Ratio] 27.52 kg/m2 Geena Lowe PA Work Phone: [facility] 04-23-2024 15:15-0400 Body weight 82.1 kg Geena Lowe PA Work Phone: [facility] 04-23-2024 15:15-0400 Diastolic blood pressure 80 mm[Hg] Geena Lowe PA Work Phone: [facility] 04-23-2024 15:15-0400 Systolic blood pressure 132 mm[Hg] Geena Lowe PA Work Phone: [facility] 04-22-2024 22:54-0400 Diastolic blood pressure 84 mm[Hg] Alex Nettlese [facility] 04-22-2024 22:54-0400 Heart rate 70 /min Alex Nettlese [facility] 04-22-2024 22:54-0400 Mean blood pressure 105 mm[Hg] Alex Nettlese [facility] 04-22-2024 22:54-0400 Respiratory rate 14 /min Alex Nettlese [facility] 04-22-2024 22:54-0400 SaO2% (BldA) [Mass fraction] 97 % Alex Becky [facility] 04-22-2024 22:54-0400 Systolic blood pressure 147 mm[Hg] Alex Nettlese [facility] 04-22-2024 22:10-0400 Blood Pressure Location Alex Nettlese [facility] 04-22-2024 22:10-0400 Diastolic blood pressure 82 mm[Hg] Alex Becky [facility] 04-22-2024 22:10-0400 Heart rate 75 /min Alex Nettlese [facility] 04-22-2024 22:10-0400 Mean blood pressure 96 mm[Hg] Alex Becky [facility] 04-22-2024 22:10-0400 Respiratory rate 11 /min Alex Becky [facility] 04-22-2024 22:10-0400 SaO2% (BldA) [Mass fraction] 96 % Alex Becky [facility] 04-22-2024 22:10-0400 Systolic blood pressure 124 mm[Hg] Alex Becky [facility] 04-22-2024 21:08-0400 Blood Pressure Location Alex Becky [facility] 04-22-2024 21:08-0400 Diastolic blood pressure 82 mm[Hg] Alex Becky [facility] 04-22-2024 21:08-0400 Heart rate 84 /min Alex Becky [facility] 04-22-2024 21:08-0400 Mean blood pressure 104 mm[Hg] Alex Becky [facility] 04-22-2024 21:08-0400 Respiratory rate 17 /min Alex Becky [facility] 04-22-2024 21:08-0400 SaO2% (BldA) [Mass fraction] 98 % Alex Becky [facility] 04-22-2024 21:08-0400 Systolic blood pressure 148 mm[Hg] Alex Becky [facility] 04-22-2024 20:09-0400 Blood Pressure Location Alex Becky [facility] 04-22-2024 20:09-0400 Respiratory rate 18 /min Alex Becky [facility] 04-22-2024 19:15-0400 Respiratory rate 16 /min Alex Pena [facility] 04-22-2024 18:36-0400 Body temperature 98.42 [degF] Alex Pena [facility] 04-22-2024 18:36-0400 Heart rate 81 /min Alex Pena [facility] 04-22-2024 18:36-0400 Respiratory rate 18 /min Alex Pena [facility] 04-12-2024 10:52-0400 Blood Pressure Location Sara Green [facility] 04-12-2024 10:52-0400 Diastolic blood pressure 86 mm[Hg] Sara Green [facility] 04-12-2024 10:52-0400 Heart rate 75 /min Sara Green [facility] 04-12-2024 10:52-0400 SaO2% (BldA) [Mass fraction] 98 % Sara Green [facility] 04-12-2024 10:52-0400 Systolic blood pressure 138 mm[Hg] Sara Green [facility] 03-01-2024 14:52-0400 Blood Pressure Location Sara Green [facility] 03-01-2024 14:52-0400 Body temperature 98.42 [degF] Sara Green [facility] 03-01-2024 14:52-0400 Diastolic blood pressure 80 mm[Hg] Sara Green [facility] 03-01-2024 14:52-0400 Heart rate 65 /min Sara Green [facility] 03-01-2024 14:52-0400 Respiratory rate 18 /min Sara Green [facility] 03-01-2024 14:52-0400 SaO2% (BldA) [Mass fraction] 99 % Sara Green [facility] 03-01-2024 14:52-0400 Systolic blood pressure 140 mm[Hg] Sara Green [facility] 01-31-2024 11:07-0400 Blood Pressure Location Sara Green [facility] 01-31-2024 11:07-0400 Body temperature 98.24 [degF] Sara Green [facility] 01-31-2024 11:07-0400 Diastolic blood pressure 90 mm[Hg] Sara Green [facility] 01-31-2024 11:07-0400 Heart rate 70 /min Sara Green [facility] 01-31-2024 11:07-0400 Respiratory rate 18 /min Sara Green [facility] 01-31-2024 11:07-0400 SaO2% (BldA) [Mass fraction] 99 % Sara Green [facility] 01-31-2024 11:07-0400 Systolic blood pressure 140 mm[Hg] Sara Green [facility] 09-12-2023 14:44-0500 Body temperature 98.2 [degF] Miguel Cai DPM Work Phone: [facility] 09-12-2023 14:44-0500 Diastolic blood pressure 88 mm[Hg] Miguel Cai DPM Work Phone: [facility] 09-12-2023 14:44-0500 Heart rate 78 /min Miguel Cai DPM Work Phone: [facility] 09-12-2023 14:44-0500 Systolic blood pressure 144 mm[Hg] Miguel Cai DPM Work Phone: [facility] 08-17-2023 12:55-0500 Blood Pressure Location Sara Green [facility] 08-17-2023 12:55-0500 Body temperature 98.06 [degF] Sara Green [facility] 08-17-2023 12:55-0500 Diastolic blood pressure 100 mm[Hg] Sara Green [facility] 08-17-2023 12:55-0500 Heart rate 88 /min Sara Green [facility] 08-17-2023 12:55-0500 Respiratory rate 18 /min Sara Green [facility] 08-17-2023 12:55-0500 SaO2% (BldA) [Mass fraction] 97 % Sara Green [facility] 08-17-2023 12:55-0500 Systolic blood pressure 142 mm[Hg] Sara Green [facility] 08-02-2023 10:40-0500 Diastolic blood pressure 88 mm[Hg] Sara Green [facility] 12-27-2023 10:40-0500 Mean blood pressure 102 mm[Hg] Sara Green [facility] 08-02-2023 10:40-0500 Systolic blood pressure 130 mm[Hg] Sara Green [facility] 08-02-2023 10:22-0500 Blood Pressure Location Sara Green [facility] 08-02-2023 10:22-0500 Diastolic blood pressure 98 mm[Hg] Sara Green [facility] 08-02-2023 10:22-0500 Heart rate 78 /min Sara Green [facility] 08-02-2023 10:22-0500 Respiratory rate 18 /min Sara Green [facility] 08-02-2023 10:22-0500 SaO2% (BldA) [Mass fraction] 98 % Sara Green [facility] 08-02-2023 10:22-0500 Systolic blood pressure 138 mm[Hg] Sara Green [facility] 10-12-2022 11:09-0500 Blood Pressure Location Randa Gudimella [facility] 10-12-2022 11:09-0500 Diastolic blood pressure 70 mm[Hg] Randa Gudimella [facility] 10-12-2022 11:09-0500 Heart rate 90 /min Randa Gudimella [facility] 10-12-2022 11:09-0500 SaO2% (BldA) [Mass fraction] 99 % Randa Gudimella [facility] 10-12-2022 11:09-0500 Systolic blood pressure 126 mm[Hg] Randa Gudimella [facility] 06-08-2022 11:53-0400 Blood Pressure Location Mack Monson [facility] 06-08-2022 11:53-0400 Diastolic blood pressure 80 mm[Hg] Mack Monson [facility] 06-08-2022 11:53-0400 Heart rate 66 /min Mack Monson [facility] 06-08-2022 11:53-0400 SaO2% (BldA) [Mass fraction] 97 % Mack Monson [facility] 06-08-2022 11:53-0400 Systolic blood pressure 128 mm[Hg] Mack Monson [facility] 05-17-2022 16:42-0400 Blood Pressure Location Randa Gudimella [facility] 05-17-2022 16:42-0400 Body temperature 98.42 [degF] Randa Gudimella [facility] 05-17-2022 16:42-0400 Diastolic blood pressure 84 mm[Hg] Randa Gudimella [facility] 05-17-2022 16:42-0400 Heart rate 74 /min Randa Gudimella [facility] 05-17-2022 16:42-0400 SaO2% (BldA) [Mass fraction] 98 % Randa Gudimella [facility] 05-17-2022 16:42-0400 Systolic blood pressure 132 mm[Hg] Randa Gudimella [facility] 03-23-2022 10:32-0400 Blood Pressure Location Randa Gudimella [facility] 03-23-2022 10:32-0400 Diastolic blood pressure 76 mm[Hg] Randa Gudimella [facility] 03-23-2022 10:32-0400 Heart rate 72 /min Randa Gudimella [facility] 03-23-2022 10:32-0400 SaO2% (BldA) [Mass fraction] 98 % Randa Gudimella [facility] 03-23-2022 10:32-0400 Systolic blood pressure 124 mm[Hg] Randa Gudimella [facility] 12-23-2021 16:42-0400 Blood Pressure Location Monet Vázquez [facility] 12-23-2021 16:42-0400 Body temperature 97.88 [degF] Monet Vázquez [facility] 12-23-2021 16:42-0400 Diastolic blood pressure 76 mm[Hg] Monet Vázquez [facility] 12-23-2021 16:42-0400 Heart rate 87 /min Monet Vázquez [facility] 12-23-2021 16:42-0400 SaO2% (BldA) [Mass fraction] 98 % Monet Vázquez [facility] 12-23-2021 16:42-0400 Systolic blood pressure 122 mm[Hg] Monet Vázuqez [facility] 11-01-2021 15:11-0400 Blood Pressure Location [facility] 11-01-2021 15:11-0400 Diastolic blood pressure 66 mm[Hg] [facility] 11-01-2021 15:11-0400 Heart rate 78 /min [facility] 11-01-2021 15:11-0400 Respiratory rate 16 /min [facility] 11-01-2021 15:11-0400 SaO2% (BldA) [Mass fraction] 99 % [facility] 11-01-2021 15:11-0400 Systolic blood pressure 120 mm[Hg] [facility] 08-21-2020 11:21-0500 BMI (Body Mass Index) 25.85 kg/m2 [facility] 08-21-2020 11:21-0500 Body weight 77.11 kg [facility] 08-21-2020 11:21-0500 Height 172.7 cm [facility] 08-21-2020 11:21-0500 Respiratory Rate 16 /min [facility] 10-06-2014 11:52-0500 Diastolic blood pressure 76 mm[Hg] [facility] 10-06-2014 11:52-0500 Heart rate 63 /min [facility] 10-06-2014 11:52-0500 Mean blood pressure 89 mm[Hg] [facility] 10-06-2014 11:52-0500 SaO2% (BldA) [Mass fraction] 97 % [facility] 10-06-2014 11:52-0500 Systolic blood pressure 115 mm[Hg] [facility] Encounters Encounter Date Encounter Type Care Provider Facility Start: 07-18-2024 End: 07-18-2024 ambulatory Sara Green Facility:[facility] Start: 07-18-2024 End: 07-18-2024 Lab Drop off Sara Green [facility] Start: 07-18-2024 End: 07-18-2024 ambulatory Sara Green Facility:[facility] Start: 06-19-2024 End: 06-19-2024 ambulatory Sara Green Facility:[facility] Start: 06-19-2024 End: 06-19-2024 Patient encounter procedure Sara Green [facility] Start: 06-17-2024 End: 06-17-2024 ambulatory Sara Green Facility:[facility] Start: 06-17-2024 End: 06-17-2024 Patient encounter procedure Sara Green [facility] Start: 06-14-2024 End: 06-14-2024 ambulatory Sara Green Facility:[facility] Start: 06-14-2024 End: 06-14-2024 Patient encounter procedure Sara Green [facility] Start: 05-17-2024 End: 05-17-2024 ambulatory Sara Green Facility:[facility] Start: 05-17-2024 End: 05-17-2024 Patient encounter procedure Sara Green [facility] Start: 04-23-2024 End: 04-23-2024 ambulatory GEENA HANSEN Not Available Start: 04-23-2024 End: 04-23-2024 Office outpatient visit 25 minutes Geena Hansen PA Work Phone: [facility] Comment on above: Myalgia (Primary Dx) ; Migraine without status migrainosus, not intractable, unspecified migraine type (CMS/HCC); DDD (degenerative disc disease), lumbar; Cervical radiculopathy; Lumbar back pain; Lumbosacral radiculopathy Start: 04-22-2024 End: 04-22-2024 Emergency department patient visit [facility] Facility:[facility] Start: 04-12-2024 End: 04-12-2024 ambulatory Sara Green Facility:[facility] Start: 04-12-2024 End: 04-12-2024 Patient encounter procedure Sara Green [facility] Start: 04-11-2024 ambulatory Sara Green Facil ity:[facility] Start: 03-12-2024 End: 03-26-2024 Pre-admission assessment Sara Green [facility] Start: 03-01-2024 End: 03-01-2024 ambulatory Sara Green Facility:[facility] Start: 03-01-2024 End: 03-01-2024 Patient encounter procedure Sara Green [facility] Start: 01-31-2024 End: 01-31-2024 ambulatory Sara Green Facility:[facility] Start: 01-31-2024 End: 01-31-2024 Patient encounter procedure Sara Green [facility] Start: 01-19-2024 End: 01-19-2024 ambulatory Sara Green Facility:[facility] Start: 01-19-2024 End: 01-19-2024 Patient encounter procedure Sara Green [facility] Start: 12-26-2023 End: 12-26-2023 ambulatory GEENA GRACIELA Not Available Start: 09-29-2023 ambulatory Sara Green Facil ity:[facility] Start: 09-28-2023 End: 09-28-2023 ambulatory Sara Green Facility:[facility] Start: 09-28-2023 End: 09-28-2023 Patient encounter procedure Sara Green [facility] Start: 09-12-2023 End: 09-12-2023 ambulatory MIGUEL CAI Not Available Start: 09-12-2023 End: 09-12-2023 Office outpatient visit 15 minutes Miguel Cai DPM Work Phone: [facility] Comment on above: Pain of toe of left foot (Primary Dx); Contusion of left lesser toe(s) w/o damage to nail, init; Verruca plantaris; Verruca Start: 09-11-2023 Chart abstracting Miguel Lowe david DPM Work Phone: [facility] Start: 08-31-2023 End: 09-15-2023 Pre-admission assessment Sara Green [facility] Start: 08-31-2023 End: 08-31-2023 ambulatory Sara Green Facility:[facility] Start: 08-17-2023 End: 08-17-2023 ambulatory Sara Green Facility:[facility] Start: 08-17-2023 End: 08-17-2023 Patient encounter procedure Sara Green [facility] Start: 08-08-2023 End: 08-08-2023 ambulatory MIGUEL CAI Not Available Start: 08-02-2023 End: 08-02-2023 ambulatory Sara Green Facility:[facility] Start: 08-02-2023 End: 08-02-2023 Patient encounter procedure Sara Green [facility] Start: 07-21-2023 End: 07-21-2023 ambulatory GEENA HANSEN Facility:[facility] Start: 07-21-2023 End: 07-21-2023 Patient encounter procedure GEENA HANSEN [facility] Start: 07-18-2023 ambulatory Sara Green Facilit y:[facility] Start: 04-19-2023 End: 04-19-2023 Patient encounter procedure Randa Efraindimella [facility] Start: 02-03-2023 End: 02-03-2023 Patient encounter procedure Kenyetta L Mykel [facility] Start: 01-17-2023 End: 01-17-2023 Lab Drop off Kenyetta Hogue [facility] Start: 10-12-2022 End: 10-12-2022 Patient encounter procedure Randa Gudimella [facility] Start: 06-08-2022 End: 06-08-2022 Patient encounter procedure Mack Monson [facility] Start: 05-17-2022 End: 05-17-2022 Patient encounter procedure Randa Gudimella [facility] Start: 03-30-2022 End: 06-28-2022 Recurring Randa Gunargismella [facility] Start: 03-23-2022 End: 03-23-2022 Patient encounter procedure Randa Gudimella [facility] Start: 12-23-2021 End: 12-23-2021 Patient encounter procedure Monet Vázquez [facility] Start: 12-23-2021 End: 12-23-2021 Patient encounter procedure Krystal [place] [facility] Start: 11-01-2021 End: 11-01-2021 Patient encounter procedure Krystal [place] [facility] Start: 03-17-2021 End: 06-26-[address] ALONDRA AJ Facility: Start: 02-22-2021 End: 02-22-2021 ambulatory [facility] Start: 02-22-2021 End: 02-22-2021 Phys/qhp telephone evaluation 11-20 min Nikki Calixto MD Work Phone: [facility] Comment on above: Bipolar affective di sorder, mixed, in full remission (HCC) (Primary Dx); Insomnia due to mental disorder Start: 11-20-2020 End: 11-24-2020 ambulatory [facility] Start: 11-20-2020 End: 11-20-2020 Phys/qhp telephone evaluation 11-20 min [facility] Work Phone: [facility] Comment on above: Bipolar affective di sorder, mixed, in full remission (HCC) (Primary Dx); Insomnia due to mental disorder Start: 08-21-2020 End: 08-21-2020 ambulatory [facility] [place] Start: 08-21-2020 End: 08-21-2020 Phys/qhp telephone evaluation 11-20 min [facility] Work Phone: [facility] Comment on above: Bipolar affective di sorder, mixed, in full remission (HCC) (Primary Dx); Insomnia due to mental disorder Start: 07-27-2018 End: 07-27-2018 Patient encounter procedure Mariana Li Facility:[facility] Start: 12-20-2012 End: 12-20-2012 Telephone encounter Purvi Blanco Work Phone: Neurology Comment on above: Appointment (Set up appt with Nyasia/Hernan) Procedures Date Procedure Procedure Detail Performing Clinician Start: 09-14-2023 Radex foot complete minimum 3 views Miguel SORTOM Work Phone: Start: 08-07-2015 Colonoscopy Geena Baker Work Phone: Start: 08-07-2015 Colonoscopy Krystal leong [...] Treatment Date Care Activity Detail Author Start: 08-07-2025 Screening for malign ant neoplasm of colon [facility] Start: 08-06-2024 End: 08-06-2024 Patient encounter procedure 08/06/2024 1:20 PM EST Office Visit [facility] [address] [facility] [id number] Geena Hansen PA [address] [facility] [address] [place] [address] [facility] Start: 05-07-2024 End: 05-07-2024 Patient encounter procedure 05/07/2024 1:45 PM EDT Office Visit [facility] [address] [address] Mariana Li, [address] [address] [facility] Start: 04-23-2024 End: 04-23-2025 Inject trigger point, 1 or 2 Inject trigger point, 1 or 2 Procedures Routine Myalgia Expected: 04/23/2024 (Approximate), Expires: 04/23/2025 [facility] Work Phone: Comment on above: Expected: 04/23/2024 (Approximate), Expires: 04/23/2025 Start: 04-07-2024 Influenza vaccination Influenza Vacc ine (#1) [facility] Start: 10-24-2023 End: 10-24-2023 Patient encounter procedure 10/24/2023 4:00 PM EDT Office Visit [facility] [address] [place] [phone] Miguel Cai, DPM [address] [place] [address] [facility] Start: 09-12-2023 End: 09-12-2023 Patient encounter procedure 09/12/2023 4:00 PM EST Office Visit [facility] [address] [place] [phone] Miguel Cai, DPM [address] [place] [address] [facility] Start: 05-24-2021 End: 05-24-2021 Patient encounter procedure 05/24/2021 Office Visit Psychiatry Nikki Calixto MD [address] [place] [address] [phone] [facility] Start: 04-07-2021 Influenza vaccination C [facility] Start: 11-20-2020 End: 11-20-2020 Telemedicine 11/20/2020 Telemedicine Psychiatry Nikki Calixto MD [address] [place] [address] [phone] [facility] Start: 04-07-2020 Influenza vaccinatio n given Sequential Influenza Vaccine (#1) [facility] Start: 2016 DIABETES SCREEN DIABETES SCREEN [facility] Start: 2016 LIPID SCREEN LIPID SCREEN [facility] Start: 2011 Mammography MAMMOGRAM [facility] Start: 2011 Screening for malign ant neoplasm of breast Mammogram [facility] Start: 2001 HPV TESTING HPV TESTING [facility] Start: 2001 Screening for malign ant neoplasm of cervix [facility] Start: 1992 PAP TESTING PAP TESTING [facility] Start: 1992 Screening for malign ant neoplasm of cervix Pap Smear [facility] Start: 1990 Urine microalbumin profile DTAP,TDAP,TD (1 - Tdap) [facility] Start: 1989 Hepatitis C antibody , confirmatory test Hepatitis C Screening [facility] Start: 1989 HEPATITIS C SCREENING HEPATITIS C SC REENING [facility] Start: 1989 Hepatitis C screening Hepatitis C Sc [facility] Start: 1989 HIV SCREENING HIV SCREENING [facility] Start: 1987 COVID-19 Vaccine (1) COVID-19 Vaccin e (1) [facility] Start: 1986 HIV screening HIV Screening [facility] Start: 1983 Adolescent depressio n screening assessment [facility] Start: 1983 COVID-19 Vaccine (1) COVID-19 Vaccin e (1) [facility] Start: 1974 History and physical examination, annual for health maintenance Wellness Visit [facility] Start: 1971 Screening for malign ant neoplasm of cervix Pap Smear [facility] Start: 1971 Screening for malign ant neoplasm of colon [facility] Start: 1971 Screening mammography Mammogram [facility] Start: 1971 Tetanus vaccination Tetanus: Every 1 0yrs [facility] Immunizations Immunization Date Immunization Notes Care Provider Christiano zee NEGATED: Highlighted row has not occurred!07-18-2024 influenza virus vaccine, unspecified formulation Sara Peter [facility] NEGATED: Highlighted row has not occurred!10-12-2022 influenza virus vaccine, unspecified formulation Randa Billy [facility] NEGATED: Highlighted row has not occurred!06-08-2022 influenza virus vaccine, unspecified formulation Mack Monson [facility] NEGATED: Highlighted row has not occurred!05-06-2021 influenza virus vaccine, unspecified formulation Krystal Keene [facility] NEGATED: Highlighted row has not occurred!05-06-2021 SARS-CoV-2 (COVID-19) Ad26 vaccine, recombinant [facility] NEGATED: Highlighted row has not occurred!05-21-2020 influenza virus vaccine, unspecified formulation [facility] NEGATED: Highlighted row has not occurred!03-05-2020 influenza virus vaccine, unspecified formulation [facility] Payers Date Payer Category Payer Unknown [id number] 2018 Unknown BCBS BCBS [id number] 2018-Present [phone] [address] [place] [address] [id number] [id number] 2018 Unknown [id number] 2018 Self-pay ABC 2012 Unknown [id number] 2012 Unknown [id number] 1.2.840.027788.1.13.385.2.7.3.6 [id number] 1971 Unknown [id number] 2.16.840.1.992350.3.579.2.718 1971 Unknown [id number] 2.16.840.1.487964.3.579.2.903 1971 Unknown [id number] 2.16.840.1.613386.3.579.2.903 1971 Unknown [id number] 2.16.840.1.817006.3.579.2.903 1971 Unknown [id number] 2.16.840.1.884428.3.579.2.593 1971 Unknown [id number] 2.16.840.1.064786.3.579.2.727 1971 Unknown [id number] 2.16.840.1.712598.3.579.2.1258 1971 Unknown [id number] 2.16.840.1.119735.3.579.2.1258 1971 Unknown [id number] 2.16.840.1.484650.3.579.2.1258 1971 Unknown [id number] 2.16.840.1.616159.3.579.2.1258 1971 Unknown [id number] 2.16.840.1.768309.3.579.2. 1971 Unknown [id number] 2.16.840.1.026146.3.579.2. 1971 Unknown [id number] 2.16.840.1.163878.3.579.2. 1971 Unknown [id number] 2.16.840.1.257334.3.579.2. 1971 Unknown [id number] 2.16.840.1.411730.3.579.2 1971 Unknown [id number] 2.16.840.1.402438.3.579.2 1971 Unknown [id number] 2.16.840.1.456673.3.579.2. 1971 Unknown [id number] 2.16.840.1.358301.3.579.2. 1971 Unknown [id number] 2.16.840.1.066455.3.579.2 1971 Unknown [id number] 2.16.840.1.522973.3.579.2. 1971 Unknown [id number] 2.16.840.1.630792.3.579.2 1971 Unknown [id number] 2.16.840.1.649165.3.579.2. 1971 Unknown [id number] 2.16.840.1.689217.3.579.2.727 1971 Unknown [id number] 2.16.840.1.893247.3.579.2.727 1971 Unknown [id number] 2.16.840.1.852488.3.579.2.727 1971 Unknown [id number] 2.16.840.1.183696.3.579.2.7 1971 Unknown [id number] 2.16.840.1.452959.3.579.2.727 1971 Unknown [id number] 2.16.840.1.099020.3.579.2.727 1971 Unknown [id number] 2.16.840.1.347522.3.579.2.727 1959 Self-pay Social History Date Type Detail Facility Start: 08-21-2020 End: 02-12-2023 Tobacco smoking status SCIS Never smoker [facility] Start: 08-21-2020 End: 02-12-2023 Tobacco use and exposure Never used [facility] Start: 08-21-2020 End: 04-23-2024 Alcohol intake Current drinker of alcohol (finding) [facility] Start: 1970 Sex Assigned At Not on file [facility] Exposure to SARS-CoV -2 (event) Unable to assess [facility] Start: 12-13-2012 End: 07-18-2024 Tobacco smoking status SCIS Former smoker [facility] History of tobacco use Cigarette Smoker C [facility] Work Phone: Start: 12-13-2012 End: 04-23-2024 Cigarettes smoked current (pack per day) - Reported [facility] Start: 12-13-2012 Alcohol intake Not Asked [facility] Exposure to SARS-CoV -2 (event) Not sure [facility] Work Phone (unformatted): [phone] Tobacco smoking status Never [facility] Start: 08-07-2023 End: 04-23-2024 Sex Assigned At Female [facility] How many standard drinks containing alcohol do [...] Assessment Result Facility 05-17-2024 Functional Status N/A [facility] 04-22-2024 Functional Status N/A [facility] 04-12-2024 Functional Status N/A [facility] 03-01-2024 Functional Status N/A [facility] 01-31-2024 Functional Status N/A [facility] 08-17-2023 Functional Status N/A [facility] 08-02-2023 Functional Status N/A [facility] 10-12-2022 Functional Status N/A [facility] 06-08-2022 Functional Status N/A [facility] 05-17-2022 Functional Status N/A [facility] 03-23-2022 N/A [facility] Clinical Notes 12-20-2012 to 07-18-2024 Radiology Note Date & Type Note Facility 07-18-2024 Evaluation + Plan note Diagnostic Tests PendingUrine Culture 07/18/24 Future Scheduled TestsXR Spine Cervical 4 or 5 Views 07/18/24 [facility] 07-18-2024 Note Patient Education Cardiovascular Hypertension, Adult High [...] risk factors are under your control, including: ??? Smoking. ??? Not getting enough exercise or physical activity. ??? Being overweight. ??? Having too much fat, sugar, calories, or salt (sodium) in your diet. ??? Drinking too much alcohol. Other risk factors include: ??? Having a personal history of heart disease, diabetes, high cholesterol, or kidney disease. ??? Stress. ??? Having a family history of high blood pressure and high cholesterol. ??? Having obstructive sleep apnea. ??? Age. The risk increases with age. What are the signs or symptoms? High blood pressure may not cause symptoms. Very high blood pressure (hypertensive crisis) may cause: ??? Headache. ??? Fast or irregular heartbeats (palpitations). ??? Shortness of breath. ??? Nosebleed. ??? Nausea and vomiting. ??? Vision changes. ??? Severe chest pain, dizziness, and seizures. How [...] risk factors, you may be asked to: ??? Return on a different day to have your blood pressure checked again. ??? Monitor your blood pressure at home for [...] your blood pressure under control and if: ??? Your systolic blood pressure is above 130. ??? Your diastolic blood pressure is above 80. Your personal target blood pressure may vary depending on your medical conditions, your age, and other factors. Follow these instructions at home: Eating and drinking ??? Eat a diet that is high in [...] higher in sodium, added sugar, and fat. ??? Reduce your daily sodium intake. Many people with hypertension should eat less than 1,500 mg of sodium a day. ??? Do not drink alcohol if: ? Your health care provider tells you not to drink. ? You are , may be , or are planning to become . ??? If you drink alcohol: ? Limit how much you have to: ? 0?1 drink a day for women. ? 0?2 drinks a day for men. ? Know how much alcohol is in your drink. In the [place] one drink equals one 12 oz bottle (more content not included)... [facility] 06-14-2024 Hospital Discharg e instructions Patient Education 06/14/2024 15:56:34 Otitis Media [...] few weeks. Home care treatment may include: Smoa-xxr-uvwfghn pain relievers. A warm, moist cloth placed over the ear. Severe cases may require a procedure to insert tubes in the ears (tympanostomy tubes) to drain the fluid. Follow these instructions at home: Take vxee-ixp-ryvqngw and prescription medicines only as told by [...] provider. Document Revised: 11/18/2021 Document Reviewed: 11/18/2021 [employer] Patient Education 2023 [facility]. 06/14/2024 15:56:30 Fungal Nail Infection Fungal Nail [...] what problems to watch for. Antifungal nail [place] or nail cream. These may be used along with oral antifungal medicines. Laser treatment of the nail. Surgery to remove the nail. This may be needed for the most severe infections. It can take a long time, usually up to a year, for the infection to go away. The infection may also come back. Follow these instructions at home: Medicines Take or apply akev-unx-rhtmugz and prescription medicines only as told by your health care provider. Ask your health care provider about using qttk-uav-dqxhzqz mentholated ointment on your nails. Nail care [...] may also come back. Take or apply thsd-cen-dblscgn and prescription medicines only as told by your health care provider. This information is not intended to replace advice given to you by your health care provider. Make sure you discuss any questions you have with your health care provider. Document Revised: 10/25/2021 Document Reviewed: 10/25/2021 [employer] Patient Education 2023 [facility]. 06/14/2024 15:56:28 Health Maintenance, Female Health Maintenance, [...] provider. Document Revised: 12/13/2021 Document Reviewed: 12/13/2021 [employer] Patient Education 2023 [facility]. 06/14/2024 15:56:26 Fatty Liver Disease Fatty Liver [...] cholesterol. Other causes: Alcohol abuse. Poor nutrition. Greig syndrome. . Certain drugs. Poisons. Some viral [...] which activities are best for you. Take syfv-xti-bsfqsrg and prescription medicines only as told by [...] provider. Document Revised: 05/06/2021 Document Reviewed: 05/06/2021 [employer] Patient Education 2023 [facility]. Follow Up Care 05/17/2024 15:08:33 With:Sara Flood FAM, MED Address: [place], [facility] [address] [address]- When:Within 1 Month(s) Comments:weight check, f/u liver US and lipase [facility] 06-14-2024 Note Patient Education [...] weeks. Home care treatment may include: ??? Cxkx-osm-nznzjhh pain relievers. ??? A warm, moist cloth placed over the ear. Severe cases may require a procedure to insert tubes in the ears (tympanostomy tubes) to drain the fluid. Follow these instructions at home: ??? Take ahwy-aeb-lynpzqt and prescription medicines only as told by [...] provider. Document Revised: 11/18/2021 Document Reviewed: 11/18/2021 [email or web address] Patient Education ? 2023 [employer] Infectious Disease Fungal Nail Infection A fungal [...] in the surroundin (more content not included)... [facility] 05-17-2024 Hospital Discharg e instructions Patient Education 05/17/2024 15:08:31 Preventing Health [...] provider. Document Revised: 02/18/2022 Document Reviewed: 02/18/2022 [employer] Patient Education 2023 [facility]. 05/17/2024 15:08:29 Hypertension, Adult Hypertension, Adult High [...] follow-up visits. This is important. Medicines Take nghk-qxn-tgbkuri and prescription medicines only as told by [...] provider. Document Revised: 05/31/2022 Document Reviewed: 05/31/2022 [employer] Patient Education 2023 [facility]. 05/17/2024 15:08:26 Carbohydrate Counting for Diabetes Mellitus, [...] 1.Identify the foods that contain carbohydrates: Rice. [place]. Milk. Strawberries. 2.Calculate how many servings you [...] and snacks. Where to find more information [employer]: diabetes.org Centers for Disease Control [...] provider. Document Revised: 02/24/2021 Document Reviewed: 02/24/2021 [employer] Patient Education 2023 [employer] 05/17/2024 15:08:24 High Cholesterol High Cholesterol High [...] your health care provider. General instructions Take ksbu-wrn-jgaoaei and prescription medicines only as told by your health care provider. Keep all follow-up visits. This is important. Where to find more information [employer]: www.heart.org National Heart, Lung, and Blood Moss: www.nhlbi.nih.gov Contact a health care provider if: [...] provider. Document Revised: 02/24/2023 Document Reviewed: 09/27/2021 [employer] Patient Education 2023 [facility]. 05/17/2024 15:08:22 Dyslipidemia Dyslipidemia Dyslipidemia is an [...] quitting, ask your health care provider. Take gxbh-kgc-czmwyxl and prescription medicines only as told by [...] provider. Document Revised: 02/24/2023 Document Reviewed: 09/27/2021 [employer] Patient Education 2023 [facility]. Follow Up Care 04/12/2024 11:34:47 With:Sara Flood FAM, [facility] Address: [address] [place], [place] [id number]- When:Within 1 Month(s) Comments:semaglutide - labs- hld [facility] 05-17-2024 Note Patient Education [...] wine (148 mL), (more content not included)... [facility] 04-23-2024 Hospital Discharg e instructions Patient Education 04/22/2024 22:57:10 Nausea, Adult, Sfdz-hz-Sbyb Nausea, Adult Nausea is feeling like you [...] enough water in your body, you may: Feel tired. Feel thirsty. Have a dry mouth. Have cracked lips. Pee (urinate) less often. Older adults and people who have other diseases or a weak body defense system (immune system) have a higher risk of not having enough water in the body. The main goals of treating this condition are: To relieve your nausea. To ensure your nausea occurs less often. To prevent vomiting and losing too much fluid. Follow these instructions at home: Watch your symptoms for any changes. Tell your doctor about them. Eating and drinking Take an ORS (oral rehydration solution). This is a drink that is sold at pharmacies and stores. Drink clear fluids in small amounts as you are able. These include: ?Water. ?Ice chips. ?Fruit juice that has water added (diluted fruit juice). ?Low-calorie sports drinks. Eat bland, jbcw-ay-ylijwh foods in small amounts as you are able, such as: ?Bananas. ?Applesauce. ?Rice. ?Low-fat (lean) meats. ?[place]. ?Crackers. Avoid drinking fluids that have a lot of sugar or caffeine in them. This includes energy drinks, sports drinks, and soda. Avoid alcohol. Avoid spicy or fatty foods. General instructions Take nxnq-qci-ujdllun and prescription medicines only as told by your doctor. Rest at home while you get better. Drink enough fluid to keep your pee (urine) pale yellow. Take slow and deep breaths when you feel like you may vomit. Avoid food or things that have strong smells. Wash your hands often with soap and water for at least 20 seconds. If you cannot use soap and water, use hand sewer builder. Make sure that everyone in your home washes their hands well and often. Keep all follow-up visits. Contact a doctor if: You feel worse. You feel like you may vomit and this lasts for more than 2 days. You vomit. You are not able to drink fluids without vomiting. You have new symptoms. You have a fever. You have a headache. You have muscle cramps. You have a rash. You have pain while peeing. You feel light-headed or dizzy. Get help right away if: You have pain in your chest, neck, arm, or jaw. You feel very weak or you faint. You have vomit that is bright red or looks like coffee grounds. You have bloody or black poop (stools) or poop that looks like tar. You have a very bad headache, a stiff neck, or both. You have very bad pain, cramping, or bloating in your belly (abdomen). You have trouble breathing or you are breathing very quickly. Your heart is beating very quickly. Your skin feels cold and clammy. You feel confused. You have signs of losing too much water in your body, such as: ?Dark pee, very little pee, or no pee. ?Cracked lips. ?Dry mouth. ?Sunken eyes. ?Sleepiness. ?Weakness. These symptoms may be an emergency. Get help right away. Call 911. Do not wait to see if the symptoms will go away. Do not drive yourself to the hospital. Summary Nausea is feeling like you are about vomit. If you vomit, or if you are not able to drink enough fluids, you may not have enough water in your body (get dehydrated). Eat and drink what your doctor tells you. Take klde-vgg-wsaioxo and prescription medicines only as told by your doctor. Contact a doctor right away if your symptoms get worse or you have new symptoms. Keep all follow-up visits. This information is not intended to replace advice given to you by your health care provider. Make sure you discuss any questions you have with your health care provider. Document Revised: 01/28/2022 Document Reviewed: 01/28/2022 [employer] Patient Education 2023 [facility]. 04/22/2024 22:57:10 Abdominal Pain, Adult, Rwbi-lp-Funr Abdominal Pain, Adult Many things can cause belly (abdominal) pain. In most cases, belly pain is not a serious problem and can be watched and treated at home. But in some cases, it can be serious. Your doctor will try to find the cause of your belly pain. Follow these instructions at home: Medicines Take vpnf-jvz-awixygb and prescription medicines only as told by your doctor. Do not take medicines that help you poop (laxatives) unless told by your doctor. General instructions Watch your belly pain for any changes. Tell your doctor if the pain gets worse. Drink enough fluid to keep your pee (urine) pale yellow. Contact a doctor if: Your belly pain changes or gets worse. You have very bad cramping or bloating in your belly. You vomit. Your pain gets worse with meals, after eating, or with certain foods. You have trouble pooping or have watery poop for more than 2 3 days. You are not hungry, or you lose weight without trying. You have signs of not getting enough fluid or water (dehydration). These may include: ?Dark pee, very little pee, or no pee. ?Cracked lips or dry mouth. ?Feeling sleepy or weak. You have pain when you pee or poop. Your belly pain wakes you up at night. You have blood in your pee. You have a fever. Get help right away if: You cannot stop vomiting. Your pain is only in one part of your belly, like on the right side. You have bloody or black poop, or poop that looks like tar. You have trouble breathing. You have chest pain. These symptoms may be an emergency. Get help right away. Call 911. Do not wait to see if the symptoms will go away. Do not drive yourself to the hospital. This information is not intended to replace advice given to you by your health care provider. Make sure you discuss any questions you have with your health care provider. Document Revised: 05/10/2023 Document Reviewed: 05/10/2023 [employer] Patient Education 2023 [facility]. Follow Up Care 04/22/2024 18:35:10 With:Sara Green Address: [address] [address]- Business (1) When:04/25/2024 [facility] 04-22-2024 Note ED Patient Education Note [...] ? Low-calorie sports drinks. ? Eat bland, jffb-hq-kyjnxb foods in small amounts as you are able, such as: ? Bananas. ? Applesauce. ? Rice. ? Low-fat (lean) meats. ? [place]. ? Crackers. ? Avoid drinking fluids that have a lot of sugar or caffeine in them. This includes energy drinks, sports drinks, and soda. ? Avoid alcohol. ? Avoid spicy or fatty foods. General instructions ? Take rxjn-zsc-urgguia and prescription medicines only as told by [...] cannot use soap and water, use hand sewer builder. ? Make sure that everyone in your [...] drink what your doctor tells you. Take iceu-vzl-exnvxfg and prescription medicines only as told by [...] provider. Document Revised: 01/28/2022 Document Reviewed: 01/28/2022 [employer] Patient Education ? 2023 [employer] Abdominal Pain, Adult Many things can cause belly (abdominal) pain. In most cases, belly pain is not a serious problem and can be watched and treated at home. But in some cases, it can be serious. Your doctor will try to find the cause of your belly pain. Follow these instructions at home: Medicines ? Take dzom-bcv-mwpnema and prescription medicines only as told by [...] Your belly pa (more content not included)... [facility] 04-22-2024 Evaluation + Plan note Extrac nicanor from: Title:ED Note Author:Ava PABON, Gayle Humphrey Date:04/22/24 1. Nausea in adult (R11.0: N ausea) 2. Abdominal pain of unknown etiology (R10.9: Unspecified abdominal pain) Orders: ondansetron, 4 mg = 1 tab(s), Oral, q6hr, PRN Nausea/Vomiting, # 12 tab(s), Refills(s) 0, Pharmacy: [id number], 171.5, cm, 04/22/24 18:39:00 EDT, Height/Length Dosing, 83.9, kg, 04/22/24 18:39:00 EDT, Weight Dosing ondansetron, 4 mg = 1 tab(s), Tab-Dis, Oral, Once, Stop date 04/22/24 22:34:00 EDT, STAT, Start date 04/22/24 22:34:00 EDT, 04/22/24 22:34:00 EDT Sodium Chloride 0.9% intravenous solution, 1,000 mL, Soln-IV, IV, Once, Stop date 04/22/24 19:14:00 EDT, STAT, Start date 04/22/24 19:14:00 EDT, Infuse over 61, minute(s) Basic Metabolic Panel CBC w/ Auto Diff CT Abdomen/Pelvis w/ Contrast ECG 12 Lead Adult ED Cardiac Monitoring eGFR Extra SST Tube Extra SST Tube Hepatic Function Panel Lactic Acid Lipase Level NPO Diet PT & PTT Saline Lock Insert Troponin 0 Hr. Troponin 1 Hr. U Beta Hcg Qual UA with Cult Rflx Future Appointments Appointment Date:05/06/2024 01:30:00 PM Scheduled Provider: [facility] Appointment Type:EMG Unilateral Upper Extremity Appointment Date:05/17/2024 02:00:00 PM Scheduled Provider:Sara Flood Location:[facility] Appointment Type:[facility] 09-06-2024 Hospital Discharge instructions Patient Education 04/12/2024 11:35:42 [...] can help you reach a healthy weight. BMIscreening can be done again to see if these changes are working. How is BMI calculated? Your height and weight are measured. The BMI is found from those numbers. This can be done with U.[place] or metric measurements. Note that charts and online BMI calculators are available to help you findyour BMI quickly and easily without doing these [...] Centers for Disease Control and Prevention: cdc.gov [employer] Heart [employer]: heart.org National Heart, Lung, and Blood [place]: nhlbi.nih.gov This information is not intended to replace advice given to you by your health care provider. Make sure you discuss any questions you have with your health care provider. Document Revised: 04/13/2023 Document Reviewed: 04/06/2023 [employer] Patient Education 2023 [employer] [facility]. 04/12/2024 11:35:40 Nausea, Adult Nausea, Adult Nausea [...] water added (diluted fruit juice). Eat bland, fvru-bi-bfddgk foods in small amounts as you are able. These foods include bananas, applesauce, rice, lean meats, toast, and crackers. Avoid drinking fluids that contain a lot of sugar or caffeine, such as energy drinks, sports drinks, and soda. Avoid alcohol. Avoid spicy or fatty foods. General instructions Take ynnp-xrp-wevmrnq and prescription medicines only as told by your health care provider. Rest at home while you recover. Drink enough fluid to keep your urine pale yellow. Breathe slowly and deeply when you feel nauseous. Avoid smelling things that have strong odors. Wash your hands often using soap and water for at least 20 seconds. If soap and water are not available, use hand sewer builder. Make sure that everyone in your household [...] recommendations for eating and drinking and take qjpy-owe-gcflyvf and prescription medicinesonly as told by your health care provider. [...] provider. Document Revised: 01/28/2022 Document Reviewed: 01/28/2022 [employer] Patient Education 2023 [employer] [facility] [employer]. 04/12/2024 11:35:37 Preventing Health Risks of Being [...] or do activities you enjoy. Being overweight alsoputs stress on your heart and lungs and [...] other factors that may make you more likelyto be overweight include: Having a family history [...] body needs on a regular basis can causeyou to become overweight or obese. Eat slowly, [...] gain, or as often as recommended by yourhealth care provider. Do moderate-intensity exercise, such as [...] provider. Document Revised: 02/18/2022 Document Reviewed: 02/18/2022 [employer] Patient Education 2023 [facility]. 04/12/2024 11:35:35 Heart Disease Prevention Heart Disease Prevention Heart disease is the leading cause of in the world. Coronary artery disease is the most common cause of heart disease. This condition results when cholesterol and other substances (plaque) build up inside the hooper of the blood vessels that supply your heart muscle (arteries). This buildup inarteries is called atherosclerosis. You can take actions [...] much sodium is safe for you. Most peopleshould have less than 2,300 mg each day. [...] of hard liquor (44 mL). Medicines Take yrcy-buu-wcsessa and prescription medicines only as told by [...] should be no higher than 120, and thelower number (diastolic) no higher than 80. Treatment [...] Centers for Disease Control and Prevention: www.cdc.gov/heartdisease [place] [employer] Association: www.heart.org Summary Heart disease is [...] provider. Document Revised: 03/23/2022 Document Reviewed: 03/23/2022 [employer] Patient Education 2023 [employer] 04/12/2024 11:35:33 High Cholesterol High Cholesterol High [...] of the body. If you have high cholesterol,deposits (plaques) may build up on the hooper [...] have not worked. You may be prescribed astatin medicine to help lower your cholesterol levels. [...] fatty acids. Aim to eat fish at least2 times a week. Avoid foods and drinks [...] you need help quitting, ask your health careprovider. General instructions Take ukik-hvd-fivymbh and prescription medicines only as told by your health care provider. Keep all follow-up visits. This is important. Where to find more information [place] [employer] Association: www.heart.org National Heart, Lung, and Blood Moss: www.nhlbi.nih.gov Contact a health care provider if: [...] to remember the main warning signs of astroke: ?B - Balance. Signs are dizziness, sudden trouble walking, or loss of balance. ?E - Eyes. Signs are trouble seeing or a sudden change in vision. ?F - Face. Signs are sudden weakness or numbness of the face, or the face or eyelid drooping on oneside. ?A - Arms. Signs are weakness or [...] provider. Document Revised: 02/24/2023 Document Reviewed: 09/27/2021 [employer] Patient Education 2023 [employer]. 04/12/2024 11:35:31 Hypertension, Adult Hypertension, Adult High [...] are some conditions that result in high bloodpressure. What increases the risk? Certain factors may make you more likely to develop high blood pressure. Some of these risk factorsare under your control, including: Smoking. Not getting [...] on the floor. The cuff of the bloodpressure monitor will be placed directly against the [...] in sodium, added sugar, and fat. An exampleof this eating plan is called the DASH [...] you need help quitting, ask your health careprovider. Monitor your blood pressure at home as told by your health care provider. Keep all follow-up visits. This is important. Medicines Take dbkm-xhq-drocsri and prescription medicines only as told by your health care provider. Follow directions carefully. Blood pressure medicines must be taken as prescribed. Do not skip doses of blood pressure medicine. Doing this puts you at risk for problems and can makethe medicine less effective. Ask your health care [...] provider. Document Revised: 05/31/2022 Document Reviewed: 05/31/2022 [employer] Patient Education 2023 [employer] 04/12/2024 11:35:31 Heart Disease Prevention Heart Disease Prevention Heart disease is the leading cause of in the world. Coronary artery disease is the most common cause of heart disease. This condition results when cholesterol and other substances (plaque) build up inside the hooper of the blood vessels that supply your heart muscle (arteries). This buildup inarteries is called atherosclerosis. You can take actions [...] much sodium is safe for you. Most peopleshould have less than 2,300 mg each day. [...] of hard liquor (44 mL). Medicines Take uxzt-xik-krsizqy and prescription medicines only as told by [...] should be no higher than 120, and thelower number (diastolic) no higher than 80. Treatment [...] Centers for Disease Control and Prevention: www.cdc.gov/heartdisease [place] [employer]: www.heart.org Summary Heart disease is [...] provider. Document Revised: 03/23/2022 Document Reviewed: 03/23/2022 [employer] Patient Education 2023 [employer]. 04/12/2024 11:35:28 Carbohydrate Counting for Diabetes Mellitus, [...] It is important to know how many carbohydrates(in grams or by serving size) you can [...] sizes of common carbohydrate-rich foods. Each of theseservings has about 15 g of carbohydrates: 1 [...] 1.Identify the foods that contain carbohydrates: Rice. Vinton. Milk. Strawberries. 2.Calculate how many servings you [...] and snacks. Where to find more information [place] [employer] Association: diabetes.org Centers for Disease Control [...] well you manage your blood glucose. This helpsyou manage your diabetes. A dietitian can help you make a meal plan and calculate how many carbohydrates you should have at each meal and snack. This information is not intended to replace advice given to you by your health care provider. Make sure you discuss any questions you have with your health care provider. Document Revised: 02/24/2021 Document Reviewed: 02/24/2021 [employer] Patient Education 2023 [employer]. Follow Up Care 04/11/2024 15:24:53 With:Sara Flood FAM, MED Address: [address] [place], [place] [id number]- When:Within 1 Month(s) Comments:weight loss [facility] 09-06-2024 NotePatient Education Heart Disease Prevention Heart disease is the leading cause of in the world. Coronary artery disease is the most common cause of heart disease. This condition results when cholesterol and other substances (plaque) build up inside the hooper of the blood vessels that supply your heart muscle (arteries). This buildup inarteries is called atherosclerosis. You can take actions [...] week (150 minutes each week). This should beexercise that causes your heart to beat faster [...] hard liquor (44 mL). Medicines ? Take vplq-bqa-xsaqykw and prescription medicines only as told by your health care provider. ? Work with your health care provider to find out whether it is safe and beneficial for you to takeaspirin daily. Make sure that you understand how [...] years. Your health care provider may check yourblood pressure more often if you have high [...] healthy weight. Where to (more content not included)...[facility]06-26-2024 Hospital Discharge instructions Patient Education 01/31/2024 12:55:50 Musculoskeletal Pain Musculoskeletal Pain Musculoskeletal pain refers to aches and pains in your bones, joints, muscles, and the tissues thatsurround them. This pain can occur in any part of the body. It can last for a short time (acute) ora long time (chronic). A physical exam, lab tests, and imaging studies may be done to find the cause of your musculoskeletal pain. Follow these instructions at home: Lifestyle Try to control or lower your stress levels. Stress increases muscle tension and can worsen musculoskeletal pain. It is important to recognize when you are anxious or stressed and learn ways to manageit. This may include: ?Meditation or yoga. ?Cognitive [...] are taken by mouth or applied to theskin. Take ncxv-zdy-lkhjqkb and prescription medicines only as told by your health care provider. When your pain is severe, bed rest may be helpful. Lie or sit in any position that is comfortable, but get out of bed and walk around at least every couple of hours. If directed, apply heat to the affected area as often as told by your health care provider. Use theheat source that your health care provider recommends, [...] a physical therapist. This person can help youcome up with a safe exercise program. If [...] your bones, joints, muscles, and the tissues thatsurround them. This pain can occur in any part of the body. Your health care provider may recommend that you see a physical therapist. This person can help youcome up with a safe exercise program. Do [...] provider. Document Revised: 11/26/2020 Document Reviewed: 11/04/2020 [employer] Patient Education 2022 [employer]. 01/31/2024 12:55:45 Paresthesia Paresthesia Paresthesia is an abnormal burning or prickling sensation. It is usually felt in the hands, arms, legs, or feet. However, it may occur in any part of the body. Usually, paresthesia is not painful. Itmay feel like: Tingling or numbness. Buzzing. Itching. [...] hard liquor (44 mL). General instructions Take vduc-sfc-nflqwao and prescription medicines only as told by your health care provider. Do not use any products that contain nicotine or tobacco. These products include cigarettes, chewing tobacco, and vaping devices, such as e-cigarettes. If you need help quitting, ask your health careprovider. If you have diabetes, work closely with [...] provider. Document Revised: 04/04/2022 Document Reviewed: 04/04/2022 [employer] Patient Education 2022 [employer]. 01/31/2024 12:55:42 Edema Edema Edema is an [...] Follow these instructions at home: Medicines Take bmrb-gxs-yvfdgwz and prescription medicines only as told by [...] to move the fluid back into your bloodvessels, and it may help the swelling go [...] provider. Document Revised: 03/28/2022 Document Reviewed: 03/28/2022 [employer] Patient Education 2022 [employer]. 01/31/2024 12:55:37 Carbohydrate Counting for Diabetes Mellitus, [...] It is important to know how many carbohydrates(in grams or by serving size) you can [...] sizes of common carbohydrate-rich foods. Each of theseservings has about 15 g of carbohydrates: 1 [...] 1.Identify the foods that contain carbohydrates: Rice. Vinton. Milk. Strawberries. 2.Calculate how many servings you [...] and snacks. Where to find more information [place] [employer] Association: diabetes.org Centers for Disease Control [...] well you manage your blood glucose. This helpsyou manage your diabetes. A dietitian can help you make a meal plan and calculate how many carbohydrates you should have at each meal and snack. This information is not intended to replace advice given to you by your health care provider. Make sure you discuss any questions you have with your health care provider. Document Revised: 02/24/2021 Document Reviewed: 02/24/2021 [employer] Patient Education 2022 [employer]. 01/31/2024 12:55:36 Calorie Counting for Weight Loss [...] figure out how many calories you need vianney day and will suggest ways to reach [...] determine how many calories you should get eachday. To meet your daily calorie goal, you [...] label. If a food does not have aNutrition Facts label, try to look up the calories online or ask your dietitian for help. Remember that calories are listed per serving. If you choose to have more than one serving of a food, you will have to multiply the calories per serving by the number of servings you plan to eat. Forexample, the label on a package of bread [...] also try weighing out portions on a kitchenscale. With time, you will be able to [...] Get creative. Try different apps or programs ifwriting down calories does not work for you. [...] other drinks without added sugar. If you wantan alcoholic beverage, choose a lower-calorie option, such as a glass of wine or light beer. ?Ask for dressings, sauces, and syrups on the side. These are usually high in calories, so you should limit the amount you eat. ?If you want a salad, choose a garden salad and ask for grilled meats. Avoid extra toppings such asbacon, cheese, or fried items. Ask for the dressing on the side, or ask for olive oil and vinegar or lemon to use as dressing. Estimate how many servings of a food you are given. Knowing serving sizes will help you be aware ofhow much food you are eating at restaurants. [...] label. If a food does not have aNutrition Facts label, try to look up the [...] provider. Document Revised: 09/03/2020 Document Reviewed: 09/03/2020 [employer] Patient Education 2022 [employer] 01/31/2024 12:55:35 BMI for Adults BMI for Adults What is BMI? Body mass index (BMI) is a number that is calculated from a person's weight and height. BMI can help estimate how much of a person's weight is composed of fat. BMI does not measure body fat directly.Rather, it is an alternative to procedures that [...] your height. Both height and weight are measured,and the BMI is calculated from those numbers. This can be done either in [place] ([place] or metric measurements. Note that charts and online BMI calculators are available to help you find your BMI quickly and easily without having to do these calculations yourself. To calculate your BMI in Indian ([place] measurements: 1.Measure your weight in pounds [...] inches squared measurement is 70 inches x 70inches, which equals 4,900 inches squared. 4.Divide the [...] muscular build, such as an athlete, may havea BMI that is higher than 24.9. In cases like these, BMI is not an accurate measure of body fat. To determine if excess body fat is the cause of a BMI of 25 or higher, further assessments may needto be done by a health care provider. BMI is usually interpreted in the same way for men and women. Where to find more information For more information about BMI, including tools to quickly calculate your BMI, go to these websites: Centers for Disease Control and Prevention: www.cdc.gov [place] [employer] Association: www.heart.org National Heart, Lung, and Blood Moss: www.nhlbi.nih.gov Summary Body mass index (BMI) is a number that is calculated from a person's weight and height. BMI may help estimate how much of a person's weight is composed of fat. BMI can help identify thosewho may be at higher risk for certain medical problems. BMI can be measured using Indian measurements or metric measurements. BMI charts are used to identify whether you are underweight, normal weight, overweight, or obese. This information is not intended to replace advice given to you by your health care provider. Make sure you discuss any questions you have with your health care provider. Document Revised: 04/15/2020 Document Reviewed: 02/21/2020 [employer] Patient Education 2022 [employer]. 01/31/2024 12:55:32 Hypothyroidism Hypothyroidism Hypothyroidism is when the thyroid gland does not make enough of certain hormones. This is called an underactive thyroid. The thyroid gland is a small gland located in the lower front part of the neck, just in front of the windpipe (trachea). This gland makes hormones that help control how the bodyuses food for energy (metabolism) as well as how the heart and brain function. These hormones also play a role in keeping your bones strong. When the thyroid is underactive, it produces too little ofthe hormones thyroxine (T4) and triiodothyronine (T3). What [...] away. Follow these instructions at home: Take keow-kef-ndyoxby and prescription medicines only as told by [...] a disease in which the body's disease-fighting system(immune system) attacks the thyroid gland. The condition can also be caused by viral infections, medicine, , or past radiation treatment to the head or neck. Symptoms may include weight gain, dry skin, constipation, feeling as though you do not have energy,and not being able to tolerate cold. This condition is treated with medicine to replace the thyroid hormones that your body does not make. This information is not intended to replace advice given to you by your health care provider. Make sure you discuss any questions you have with your health care provider. Document Revised: 07/26/2022 Document Reviewed: 07/26/2022 [employer] Patient Education 2022 [employer]. 01/31/2024 12:55:30 Hypertension, Adult Hypertension, Adult High [...] are some conditions that result in high bloodpressure. What increases the risk? Certain factors may make you more likely to develop high blood pressure. Some of these risk factorsare under your control, including: Smoking. Not getting [...] on the floor. The cuff of the bloodpressure monitor will be placed directly against the [...] in sodium, added sugar, and fat. An exampleof this eating plan is called the DASH [...] you need help quitting, ask your health careprovider. Monitor your blood pressure at home as told by your health care provider. Keep all follow-up visits. This is important. Medicines Take kwsj-gvs-nzrzdiv and prescription medicines only as told by your health care provider. Follow directions carefully. Blood pressure medicines must be taken as prescribed. Do not skip doses of blood pressure medicine. Doing this puts you at risk for problems and can makethe medicine less effective. Ask your health care [...] provider. Document Revised: 05/31/2022 Document Reviewed: 05/31/2022 [employer] Patient Education 2022 [employer]. 01/31/2024 12:55:30 Heart Disease Prevention Heart Disease Prevention Heart disease is the leading cause of in the world. Coronary artery disease is the most common cause of heart disease. This condition results when cholesterol and other substances (plaque) build up inside the hooper of the blood vessels that supply your heart muscle (arteries). This buildup inarteries is called atherosclerosis. You can take actions [...] much sodium is safe for you. Most peopleshould have less than 2,300 mg each day. [...] of hard liquor (44 mL). Medicines Take wtac-hvu-aenwqex and prescription medicines only as told by [...] should be no higher than 120, and thelower number (diastolic) no higher than 80. Treatment [...] Centers for Disease Control and Prevention: www.cdc.gov/heartdisease [employer] Association: www.heart.org Summary Heart disease is [...] provider. Document Revised: 03/23/2022 Document Reviewed: 03/23/2022 [employer] Patient Education 2022 [employer]. 01/31/2024 12:55:29 DASH Eating Plan DASH Eating [...] methods such as baking, boiling, grilling, roasting, andbroiling instead. Cook with heart-healthy oils, such as [...] steamed, roasted, or grilled). Low-sodium or reduced-sodium tomatoand vegetable juice. Low-sodium or reduced-sodium tomato sauce and tomato paste. Low-sodium or reduced-sodium canned vegetables. Grains Whole-grain or whole-wheat bread. Whole-grain or whole-wheat pasta. Brown rice. Oatmeal. Quinoa. Bulgur. Whole-grain and low-sodium cereals. Sary bread. Low- fat, low-sodium crackers. Whole-wheat flour tortillas. Meats and [...] milk. Reduced-fat, low-fat, or fat-free cheeses. Nonfat, low-sodiumricotta or cottage cheese. Low-fat or nonfat yogurt. [...] Dairy Whole or 2% milk, cream, and epbt-jwy-mhwe. Whole or full-fat cream cheese. Whole-fat or [...] more information National Heart, Lung, and Blood Moss: www.nhlbi.nih.gov [place] [employer] Association: www.heart.org Academy of Nutrition and [...] provider. Document Revised: 06/26/2020 Document Reviewed: 06/26/2020 [employer] Patient Education 2022 [employer]. Follow Up Care 08/02/2023 11:59:29 With:Sara Flood [facility], [facility] Address: [place], [facility] [address] [address]- When:Within 1 Month(s) Comments:f/u weight check, htn, neck check [facility] 02-06-2024 History of Present illness Narrative* Miguel Cai, LELAND - 09/12/2023 4:00 PM EST Reason for Appointment Established patient: Recheck verruca [...] region x 4, right plantar fourth toe x1 mosaic, left medial thumb. Ankle / Foot: [...] date of injury 09-12-2023 SHOE GEAR EVALUATION: [facility] athletic shoes without custom foot orthotics. Imaging Studies: FOOT X-RAY: 09-12-2023: Left foot x-rays, weightbearing AP/MO/LAT views, obtained today shows: no visible sign ofany pathology on all three views left 2nd [...] no palpable to at this point. No othernew pathology appreciated. 01-26-2022: Right foot x-rays, weightbearing [...] obliquely only minimal lateral cortex on the obliqueview. 12-02-2021: RIGHT foot x-rays, non-weightbearing AP/MO/LAT views, obtained today shows: lateral viewshows normal specific pathology or fractures overlap other [...] second metatarsal base fracture with angulation from proximalmedial to distal lateral there does not appear [...] the decisions I made. documented in this encounterSac-Osage [id number] Hospital Discharge instructions Patient Education 08/17/2023 13:39:46 BMI for Adults BMI for Adults What is BMI? Body mass index (BMI) is a number that is calculated from a person's weight and height. BMI can help estimate how much of a person's weight is composed of fat. BMI does not measure body fat directly.Rather, it is an alternative to procedures that [...] your height. Both height and weight are measured,and the BMI is calculated from those numbers. This can be done either in Indian ([place] or metric measurements. Note that charts and online BMI calculators are available to help you find your BMI quickly and easily without having to do these calculations yourself. To calculate your BMI in Indian ([place] measurements: 1.Measure your weight in pounds [...] inches squared measurement is 70 inches x 70inches, which equals 4,900 inches squared. 4.Divide the [...] muscular build, such as an athlete, may havea BMI that is higher than 24.9. In cases like these, BMI is not an accurate measure of body fat. To determine if excess body fat is the cause of a BMI of 25 or higher, further assessments may needto be done by a health care provider. BMI is usually interpreted in the same way for men and women. Where to find more information For more information about BMI, including tools to quickly calculate your BMI, go to these websites: Centers for Disease Control and Prevention: www.cdc.gov [place] [employer]: www.heart.org National Heart, Lung, and Blood Moss: www.nhlbi.nih.gov Summary Body mass index (BMI) is a number that is calculated from a person's weight and height. BMI may help estimate how much of a person's weight is composed of fat. BMI can help identify thosewho may be at higher risk for certain medical problems. BMI can be measured using Indian measurements or metric measurements. BMI charts are used to identify whether you are underweight, normal weight, overweight, or obese. This information is not intended to replace advice given to you by your health care provider. Make sure you discuss any questions you have with your health care provider. Document Revised: 04/15/2020 Document Reviewed: 02/21/2020 [employer] Patient Education 2022 [employer]. 08/17/2023 13:39:44 DASH Eating Plan DASH Eating [...] methods such as baking, boiling, grilling, roasting, andbroiling instead. Cook with heart-healthy oils, such as [...] steamed, roasted, or grilled). Low-sodium or reduced-sodium tomatoand vegetable juice. Low-sodium or reduced-sodium tomato sauce and tomato paste. Low-sodium or reduced-sodium canned vegetables. Grains Whole-grain or whole-wheat bread. Whole-grain or whole-wheat pasta. Brown rice. Oatmeal. Quinoa. Bulgur. Whole-grain and low-sodium cereals. Sary bread. Low- fat, low-sodium crackers. Whole-wheat flour tortillas. Meats and [...] milk. Reduced-fat, low-fat, or fat-free cheeses. Nonfat, low-sodiumricotta or cottage cheese. Low-fat or nonfat yogurt. [...] Dairy Whole or 2% milk, cream, and wdba-vyw-ukpb. Whole or full-fat cream cheese. Whole-fat or sweetened yogurt. Full-fat cheese. Nondairy creamers. Whipped toppings. Processed cheese and cheese spreads. Fats and oils Butter. Stick margarine. Lard. Shortening. Ghee. [place] fat. Tropical oils, such as coconut, palm kernel, or palm oil. Seasonings and condiments Onion salt, garlic salt, seasoned salt, table salt, and sea salt. [facility] [place] sauce. Tartar sauce. Barbecue sauce. Teriyaki sauce. [...] more information National Heart, Lung, and Blood Moss: www.nhlbi.nih.gov [employer] Association: www.heart.org Academy of Nutrition and [...] provider. Document Revised: 06/26/2020 Document Reviewed: 06/26/2020 [employer] Patient Education 2022 [employer]. 08/17/2023 13:39:43 Carbohydrate Counting for Diabetes Mellitus, [...] It is important to know how many carbohydrates(in grams or by serving size) you can [...] sizes of common carbohydrate-rich foods. Each of theseservings has about 15 g of carbohydrates: 1 [...] 1.Identify the foods that contain carbohydrates: Rice. [place]inton. Milk. Strawberries. 2.Calculate how many servings you [...] and snacks. Where to find more information [employer] Association: diabetes.org Centers for Disease Control [...] well you manage your blood glucose. This helpsyou manage your diabetes. A dietitian can help you make a meal plan and calculate how many carbohydrates you should have at each meal and snack. This information is not intended to replace advice given to you by your health care provider. Make sure you discuss any questions you have with your health care provider. Document Revised: 02/24/2021 Document Reviewed: 02/24/2021 [employer] Patient Education 2022 [employer]. 08/17/2023 13:39:42 Calorie Counting for Weight Loss [...] figure out how many calories you need vianney day and will suggest ways to reach [...] determine how many calories you should get eachday. To meet your daily calorie goal, you [...] label. If a food does not have aNutrition Facts label, try to look up the calories online or ask your dietitian for help. Remember that calories are listed per serving. If you choose to have more than one serving of a food, you will have to multiply the calories per serving by the number of servings you plan to eat. Forexample, the label on a package of bread [...] also try weighing out portions on a kitchenscale. With time, you will be able to [...] Get creative. Try different apps or programs ifwriting down calories does not work for you. [...] other drinks without added sugar. If you wantan alcoholic beverage, choose a lower-calorie option, such as a glass of wine or light beer. ?Ask for dressings, sauces, and syrups on the side. These are usually high in calories, so you should limit the amount you eat. ?If you want a salad, choose a garden salad and ask for grilled meats. Avoid extra toppings such asbacon, cheese, or fried items. Ask for the dressing on the side, or ask for olive oil and vinegar or lemon to use as dressing. Estimate how many servings of a food you are given. Knowing serving sizes will help you be aware ofhow much food you are eating at restaurants. [...] label. If a food does not have aNutrition Facts label, try to look up the [...] provider. Document Revised: 09/03/2020 Document Reviewed: 09/03/2020 [employer] Patient Education 2022 [employer]. 08/17/2023 13:39:32 Contact Dermatitis Contact Dermatitis Dermatitis [...] This type does not require previous exposure tothe substance for a reaction to occur. This is the most common type. Allergic contact dermatitis. This type is caused by a substance that you are allergic to, such as poison darryl. This type occurs when you have been exposed to the substance (allergen) and develop a sensitivity to it. Dermatitis may develop soon after your first exposure to the allergen, or it may notdevelop until the next time you are exposed [...] you may need to see an occupational analyst. How is this treated? This condition is [...] perfumes, and dyes. Medicines Take or apply gwez-qjo-enqyetd and prescription medicines only as told by your health care provider. If you were prescribed an antibiotic medicine, take or apply the antibiotic as told by your health care provider. Do not stop using the antibiotic even if your condition improves. Bathing Try taking a bath with: ?Epsom salts. Follow the instructions on the packaging. You can get these at your local pharmacy [employer] [facility]. ?Baking soda. Pour a small amount [...] and water are not available, use hand sewer builder. General instructions Avoid the substance that caused your reaction. If you do not know what caused it, keep a journal totry to track what caused it. Write down: [...] know what caused it, keep a journal totry to track what caused it. Contact a [...] provider. Document Revised: 05/09/2022 Document Reviewed: 05/09/2022 [employer] Patient Education 2022 [employer]. [facility] 12-27-2023 Hospital Discharge instructions Patient Education 08/02/2023 12:00:08 Fatigue Fatigue If you have fatigue, you feel tired all the time and have a lack of energy or a lack of motivation.Fatigue may make it difficult to start or [...] Follow these instructions at home: Medicines Take zwsz-whm-zcptknn and prescription medicines only as told by [...] yourself or others, or have thoughts about takingyour own life. Go to your nearest emergency room or: Call 911. Call the National Suicide Prevention Lifeline at or 413. This is open 24 hours a day. Text the Crisis Text Line at 508450. Summary If you have fatigue, you feel [...] provider. Document Revised: 05/16/2022 Document Reviewed: 05/16/2022 [employer] Patient Education 2022 [employer] 08/02/2023 12:00:06 Exercising to Lose Weight Exercising to Lose Weight Getting regular exercise is important for everyone. It is especially important if you are overweight. Being overweight increases your risk of heart disease, stroke, diabetes, high blood pressure, andseveral types of cancer. Exercising, and reducing the [...] of moderate-intensity exercise a week to maintain theirbody weight. Vigorous-intensity exercise Vigorous-intensity exercise is any [...] you need and what types of activities aresafe for you. Nutrition Make changes to your diet as told by your health care provider or diet and child nutrition director (dietitian). This may include: ?Eating fewer calories. ?Eating more protein. ?Eating less unhealthy fats. ?Eating a diet that includes fresh fruits and vegetables, whole grains, low-fat dairy products, andlean protein. ?Avoiding foods with added fat, salt, [...] provider. Document Revised: 09/19/2021 Document Reviewed: 09/19/2021 [employer] Patient Education 2022 [employer]. 08/02/2023 12:00:05 BMI for Adults BMI for Adults What is BMI? Body mass index (BMI) is a number that is calculated from a person's weight and height. BMI can help estimate how much of a person's weight is composed of fat. BMI does not measure body fat directly.Rather, it is an alternative to procedures that [...] your height. Both height and weight are measured,and the BMI is calculated from those numbers. This can be done either in Indian (U.[place] or metric measurements. Note that charts and online BMI calculators are available to help you find your BMI quickly and easily without having to do these calculations yourself. To calculate your BMI in Indian (U.S.) measurements: 1.Measure your weight in pounds [...] inches squared measurement is 70 inches x 70inches, which equals 4,900 inches squared. 4.Divide the [...] muscular build, such as an athlete, may havea BMI that is higher than 24.9. In cases like these, BMI is not an accurate measure of body fat. To determine if excess body fat is the cause of a BMI of 25 or higher, further assessments may needto be done by a health care provider. BMI is usually interpreted in the same way for men and women. Where to find more information For more information about BMI, including tools to quickly calculate your BMI, go to these websites: Centers for Disease Control and Prevention: www.cdc.gov [place] Heart Association: www.heart.org National Heart, Lung, and Blood Moss: www.nhlbi.nih.gov Summary Body mass index (BMI) is a number that is calculated from a person's weight and height. BMI may help estimate how much of a person's weight is composed of fat. BMI can help identify thosewho may be at higher risk for certain medical problems. BMI can be measured using Indian measurements or metric measurements. BMI charts are used to identify whether you are underweight, normal weight, overweight, or obese. This information is not intended to replace advice given to you by your health care provider. Make sure you discuss any questions you have with your health care provider. Document Revised: 04/15/2020 Document Reviewed: 02/21/2020 [employer] Patient Education 2022 [employer]. 08/02/2023 12:00:01 Chronic Migraine Headache Chronic Migraine [...] to light and sound, and vision changes. Migrainesthat keep coming back are called recurrent migraines. A migraine is called a chronic migraine if ithappens at least 15 days in a month [...] tests cannot diagnose migraines, but they can helpto rule out other causes of headaches. Taking [...] Follow these instructions at home: Medicines Take upfu-htg-natdnvh and prescription medicines only as told by your health care provider. Ask your health care provider if the medicine prescribed to you requires you to avoid driving or using machinery. Lifestyle Do not use any products that contain nicotine or tobacco, such as cigarettes, e- cigarettes, and chewing tobacco. If you need help [...] of moderate-intensity exercise, such as walking, biking, oryoga, or 75 minutes of vigorous exercise each [...] for Headache and Migraine Patients (CHAMP): headachemigraine.org Palestinian Migraine Foundation: americanmigrainefoundation.org National Headache Foundation: headaches.org [...] provider. Document Revised: 09/09/2020 Document Reviewed: 09/09/2020 [employer] Patient Education 2022 [employer]. 08/02/2023 11:59:59 Insomnia Insomnia Insomnia is a [...] occurs at least three times a week forlonger than 3 months. What are the causes? [...] go back to bed. General instructions Take hivv-dmy-wiwwcmj and prescription medicines only as told by [...] yourself or others, or have thoughts about takingyour own life. Go to your nearest emergency room or: Call 911. Call the National Suicide Prevention Lifeline at or 264. This is open 24 hours a day. Text the Crisis Text Line at 876576. Summary Insomnia is a sleep disorder that [...] provider. Document Revised: 07/04/2022 Document Reviewed: 07/04/2022 [employer] Patient Education 2022 [employer] [facility]. 08/02/2023 11:59:57 Hypertension, Adult Hypertension, Adult High [...] are some conditions that result in high bloodpressure. What increases the risk? Certain factors may make you more likely to develop high blood pressure. Some of these risk factorsare under your control, including: Smoking. Not getting [...] on the floor. The cuff of the bloodpressure monitor will be placed directly against the [...] in sodium, added sugar, and fat. An exampleof this eating plan is called the DASH [...] you need help quitting, ask your health careprovider. Monitor your blood pressure at home as told by your health care provider. Keep all follow-up visits. This is important. Medicines Take rjdu-scp-exkgqgz and prescription medicines only as told by your health care provider. Follow directions carefully. Blood pressure medicines must be taken as prescribed. Do not skip doses of blood pressure medicine. Doing this puts you at risk for problems and can makethe medicine less effective. Ask your health care [...] away. Do not drive yourself to the [facility]. Summary Hypertension is when the force of [...] provider. Document Revised: 05/31/2022 Document Reviewed: 05/31/2022 [employer] Patient Education 2022 [employer]. 08/02/2023 11:59:56 Heart Disease Prevention Heart Disease Prevention Heart disease is the leading cause of in the world. Coronary artery disease is the most common cause of heart disease. This condition results when cholesterol and other substances (plaque) build up inside the hooper of the blood vessels that supply your heart muscle (arteries). This buildup inarteries is called atherosclerosis. You can take actions [...] much sodium is safe for you. Most peopleshould have less than 2,300 mg each day. [...] of hard liquor (44 mL). Medicines Take zlbz-tuh-hjwzrcm and prescription medicines only as told by [...] should be no higher than 120, and thelower number (diastolic) no higher than 80. Treatment [...] Centers for Disease Control and Prevention: www.cdc.gov/heartdisease [place] Heart Association: www.heart.org Summary Heart disease is [...] provider. Document Revised: 03/23/2022 Document Reviewed: 03/23/2022 [employer] Patient Education 2022 [employer] [facility]. 08/02/2023 11:59:55 DASH Eating Plan DASH Eating [...] methods such as baking, boiling, grilling, roasting, andbroiling instead. Cook with heart-healthy oils, such as [...] steamed, roasted, or grilled). Low-sodium or reduced-sodium tomatoand vegetable juice. Low-sodium or reduced-sodium tomato sauce and tomato paste. Low-sodium or reduced-sodium canned vegetables. Grains Whole-grain or whole-wheat bread. Whole-grain or whole-wheat pasta. Brown rice. Oatmeal. Quinoa. Bulgur. Whole-grain and low-sodium cereals. Sary bread. Low- fat, low-sodium crackers. Whole-wheat flour tortillas. Meats and [...] milk. Reduced-fat, low-fat, or fat-free cheeses. Nonfat, low-sodiumricotta or cottage cheese. Low-fat or nonfat yogurt. [...] Dairy Whole or 2% milk, cream, and bfkn-skl-swxp. Whole or full-fat cream cheese. Whole-fat or sweetened yogurt. Full-fat cheese. Nondairy creamers. Whipped toppings. Processed cheese and cheese spreads. Fats and oils Butter. Stick margarine. Lard. Shortening. Ghee. Osborn fat. Tropical oils, such as coconut, palm kernel, or palm oil. Seasonings and condiments Onion salt, garlic salt, seasoned salt, table salt, and sea salt. [facility] Hospitaltershire sauce. Tartar sauce. Barbecue sauce. Teriyaki sauce. [...] more information National Heart, Lung, and Blood Moss: www.nhlbi.nih.gov [place] Heart Association: www.heart.org Academy of Nutrition and [...] provider. Document Revised: 06/26/2020 Document Reviewed: 06/26/2020 [employer] Patient Education 2022 [employer] [facility]. 08/02/2023 11:59:53 Health Maintenance, Female Health Maintenance, [...] high risk for HIV. Your health care providermay recommend a prescription medicine to help prevent HIV infection. If you choose to take medicineto prevent HIV, you should first get tested [...] minerals and strength with aging. This can resultin bone fractures. If you are 65 years [...] you need help quitting, ask your health careprovider. Do not use street drugs. Do not [...] provider. Document Revised: 12/13/2021 Document Reviewed: 12/13/2021 [employer] Patient Education 2022 [employer] [facility]. Follow Up Care 07/18/2023 11:26:38 With:Sara Flood FAM, MED Address: [address], [address] [place] [phone] When:Within 1 Month(s) Comments:f/u labs, HTN, With:Sara Flood FAM, MED Address: [address], [employer] [facility] [address] [place] [phone] Business (1) When:10/11/2023 Comments:for f/u [facility] 10-11-2022 Hospital Discharge instructions Patient Education 05/17/2022 16:52:01 [...] problems. It is used to check whether aperson is obese, overweight, healthy weight, or underweight. How is BMI calculated? BMI measures your weight and compares it to your height. This can be done either in Indian ([place] or metric measurements. Note that charts are available to help you find your BMI quickly and easily without having to do these calculations yourself. To calculate your BMI in Indian ([place] measurements, your health care provider will: [...] muscular build, such as an athlete, may havea BMI that is higher than 24.9. In cases like these, BMI is not an accurate measure of body fat. To determine if excess body fat is the cause of a BMI of 25 or higher, further assessments may needto be done by a health care provider. [...] medical problems. BMI can be measured using Indian measurements or metric measurements. To interpret your [...] 04/04/2005 Document Revised: 07/06/2018 Document Reviewed: 06/06/2018 [employer] Patient Education 2020 [employer]. Follow Up Care 05/17/2022 11:41:02 With:Wenceslao MARROQUIN, Randa, ANGY, MED Address: [address] [place] [phone] When: only if needed [facility] [place] 05-19-2022 Hospital Discharge instructions Patient Education 12/23/2021 17:07:26 [...] problems. It is used to check whether aperson is obese, overweight, healthy weight, or underweight. How is BMI calculated? BMI measures your weight and compares it to your height. This can be done either in Indian ([place] or metric measurements. Note that charts are available to help you find your BMI quickly and easily without having to do these calculations yourself. To calculate your BMI in Indian ([place] measurements, your health care provider will: [...] muscular build, such as an athlete, may havea BMI that is higher than 24.9. In cases like these, BMI is not an accurate measure of body fat. To determine if excess body fat is the cause of a BMI of 25 or higher, further assessments may needto be done by a health care provider. [...] medical problems. BMI can be measured using Indian measurements or metric measurements. To interpret your [...] 04/04/2005 Document Revised: 07/06/2018 Document Reviewed: 06/06/2018 [employer] Patient Education 2020 [employer] [facility]. 12/23/2021 17:07:24 Sinusitis, Adult Sinusitis, Adult Sinusitis is inflammation of your sinuses. Sinuses are hollow spaces in the bones around your face.Your sinuses are located: Around your eyes. In [...] a feeling of pressure around the affected sinuses.Other symptoms include: Stuffy nose or congestion. Thick [...] at home: Medicines Take, use, or apply szbp-prz-urykoby and prescription medicines only as told by your health care provider. These may include nasal sprays. If you were prescribed an antibiotic medicine, take it as told by your health care provider. Do notstop taking the antibiotic even if you start [...] or as told by your health care provider.This will help with discomfort. Wash your hands often with soap and water to reduce your exposure to germs. If soap and water are not available, use hand sewer builder. Do not smoke. Avoid being around people [...] told by your health care provider. Do notstop taking the antibiotic even if you start to feel better. Keep all follow-up visits as told by your health care provider. This is important. This information is not intended to replace advice given to you by your health care provider. Make sure you discuss any questions you have with your health care provider. Document Released: 07/24/2006 Document Revised: 12/24/2018 Document Reviewed: 12/24/2018 [employer] Patient Education 2020 [employer]. Follow Up Care 12/23/2021 07:59:55 With:Monet Vázquez CNP Address: When: only if needed [facility] 03-28-2022 Hospital Discharge instructions Patient Education 11/01/2021 14:52:13 [...] problems. It is used to check whether aperson is obese, overweight, healthy weight, or underweight. How is BMI calculated? BMI measures your weight and compares it to your height. This can be done either in Indian ([place] or metric measurements. Note that charts are available to help you find your BMI quickly and easily without having to do these calculations yourself. To calculate your BMI in Indian ([place].S[place] measurements, your health care provider will: [...] muscular build, such as an athlete, may havea BMI that is higher than 24.9. In cases like these, BMI is not an accurate measure of body fat. To determine if excess body fat is the cause of a BMI of 25 or higher, further assessments may needto be done by a health care provider. [...] medical problems. BMI can be measured using Indian measurements or metric measurements. To interpret your [...] 04/04/2005 Document Revised: 07/06/2018 Document Reviewed: 06/06/2018 [employer] Patient Education [employer] Follow Up Care 10/19/2021 14:41:47 With:Krystal Greene Address: [email or web address] When: only if needed [facility] 02-16-2022 Hospital Discharge instructions Follow Up Care 09/22/2021 12:00:37 With:Wenceslao MARROQUIN, Randa, [facility], MED Address: [address] [place], [place] [phone] Business (1) When:07/17/2021 [facility] 07-19-2021 History of Present illness Narrative* Nikki Calixto MD - 02/22/2021 3:13 PM EDT Telephone Visit Via Phone Call [facility] [phone] Telephone Visit [facility] 02/22/2021 Nikki Calixto MD Provider Location: [facility] Patient Location Gastroenterology Physician: None Patient Location: Patient's Home Patient: Savanah [...] there are inherent diagnostic limitations compared to dmwg-om-ducj evaluations. We elected toproceed with the telephone [...] and Plan of Care. documented in this [id number] Miscellaneous Notes* Telephone Encounter - Colin Ellis - 12/20/2012 3:32 PM EDT I called the pt today to schedule this appt. I left a msg for the pt to call in regards to setting up an appt per Dr. Blanco. Colin Chopra * Telephone Encounter - Colin Ellis - 12/20/2012 3:31 PM EDT Message copied by COLIN ELLIS on MonDecember 20, 2012 3:31 PM ------ Message from: PURVI BLANCO MD Created: MonDecember 19, 2012 6:42 PM Regarding: Referral to sleep psychology Could this patient please be called to schedule an appt with Dr. Murrell or Dr. Becerra? Have placed order in her chart. Thank you! purvi [facility] Future Appointments Appointment Date:03/23/2022 10:20:00 AM Scheduled Provider:Wenceslao MARROQUIN, Randa Location:[facility] Appointment Type: Open [facility] Scheduled Tests Laboratory* SARS-CoV-2, [place] 06/29/21 [facility] [place] Evaluation + Plan note Future Appointments Appointment [...] Date:03/23/2022 10:20:00 AM Scheduled Provider:Randa Billy MD Location:[facility] Appointment Type: Open Future Scheduled Tests Laboratory* SARS-CoV-2, [place] 06/29/21 [facility] Evaluation + Plan note Future Appointments Appointment Date:09/21/2022 10:20:00 AM Scheduled Provider:Randa Billy MD Location:[facility] Appointment Type: Open Future Scheduled Tests Laboratory* SARS-CoV-2, [place] 06/29/21 Radiology* MA Mamm Screen w/CAD if perf and 3D James 03/23/22 [facility] Evaluation + Plan note Future Appointments Appointment Date:06/27/2022 02:45:00 PM Scheduled Provider: Location:.[facility] Appointment Type:MA Screen (FT) Appointment Date:09/21/2022 10:20:00 AM Scheduled Provider:Randa Billy MD Location:[facility] Appointment Type: Open Future Scheduled Tests Laboratory* SARS-CoV-2, [place] 06/29/21 Radiology* MA Mamm Screen w/CAD if perf and 3D James 06/27/22 [facility] Evaluation + Plan note Future Appointments Appointment Date:09/21/2022 10:20:00 AM Scheduled Provider:Randa Billy MD Location:[facility] Appointment Type: Open Future Scheduled Tests Laboratory* SARS-CoV-2, [place] [facility] Appointment Date:04/19/2023 11:00:00 AM Scheduled Provider:Randa Billy MD Location:[facility] Appointment Type: Open [facility] [place] Evaluation + Plan note Future Appointments Appointment Date:04/19/2023 11:00:00 AM Scheduled Provider:Randa Billy MD Location:[facility] Appointment Type: Open Future Scheduled Tests Radiology* US Thyroid [facility] Appointment Date:01/31/2024 11:00:00 AM Scheduled Provider:Sara Flood Location:[facility] Appointment Type: Open Future Scheduled Tests Laboratory* HgbA1c 08/02/23 * Vitamin D 25 Hydroxy 08/02/23 * CBC w/ Auto Diff 08/02/23 * Comprehensive Metabolic Panel 08/02/23 * Lipid Panel 08/02/23 * Thyroid Stimulating Hormone 08/02/23 * Free T4 08/02/23 Radiology* MA Mamm Screen w/CAD if perf and 3D James 08/02/23 [facility] Evaluation + Plan note Future Appointments Appointment Date:09/29/2023 01:00:00 PM Scheduled Provider:Sara Flood Location:[facility] Appointment Type: Open Appointment Date:01/31/2024 11:00:00 AM Scheduled Provider:Sara Flood Location:[facility] Appointment Type: Open Future Scheduled Tests Laboratory* HgbA1c 08/02/23 * Vitamin D 25 Hydroxy 08/02/23 * CBC w/ Auto Diff 08/02/23 * Comprehensive Metabolic Panel 08/02/23 * Lipid Panel 08/02/23 * Thyroid Stimulating Hormone 08/02/23 * Free T4 08/02/23 Radiology* MA Mamm Screen w/CAD if perf and 3D James 08/02/23 [facility] Evaluation + Plan note Future Appointments Appointment Date:01/31/2024 11:00:00 AM Scheduled Provider:Sara Flood Location:[facility] Appointment Type: Open Future Scheduled Tests Laboratory* HgbA1c 08/02/23 * Vitamin D 25 Hydroxy 08/02/23 * CBC w/ Auto Diff 08/02/23 * Comprehensive Metabolic Panel 08/02/23 * Lipid Panel 08/02/23 * Thyroid Stimulating Hormone 08/02/23 * [facility] T[facility] App[facility]ments Appointment Date:01/31/2024 11:00:00 AM Scheduled Provider:Sara Flood Location[facility] App[facility]ments Appointment Date:03/01/2024 02:40:00 PM Scheduled Provider:Sara Flood Location:[facility] Appointment Type:[facility] Evaluation + Plan note Future Appointments Appointment Date:04/11/2024 11:00:00 AM Scheduled Provider:Sara Flood Location:[facility] Appointment Type:[facility] Evaluation + Plan note Future Appointments Appointment Date:04/22/2024 02:00:00 PM Scheduled Provider: [facility] Type:EMG Unilateral Upper Extremity Appointment Date:05/17/2024 02:00:00 PM Scheduled Provider:Sara Flood Location:[facility] Appointment Type:[facility] Evaluation + Plan note Future Appointments Appointment Date:06/14/2024 02:40:00 PM Scheduled Provider:Sara Flood Location:[facility] Appointment Type: Open Future Scheduled Tests Laboratory* Comprehensive Metabolic Panel 05/17/24 * Lipase Level 05/17/24 * Lipid Panel 05/17/24 [facility] Primary [facility] Evaluation + Plan note Future Appointments Appointment Date:07/18/2024 10:40:00 AM Scheduled Provider:Sara Flood Location:[facility] Appointment Type: Open Future Scheduled Tests Laboratory* Comprehensive Metabolic Panel 05/17/24 * Lipase Level 05/17/24 * Lipid Panel 05/17/24 Radiology* US Abdomen, Limited 06/14/24 [facility] Primary Care evaluation + Plan note Future Appointments Appointment Date:06/19/2024 07:00:00 AM Scheduled Provider: Location[facility] Appointment Type:US Abdominal/Pelvis () Appointment Date:07/18/2024 10:40:00 AM Scheduled Provider:Sara Flood Location:[facility] Appointment Type: Open Future Scheduled Tests Radiology* US Abdomen, Limited 06/19/24 [facility] evaluation + Plan note Future Appointments Appointment Date:07/18/2024 10:40:00 AM Scheduled Provider:Sara Flood Location:[facility] Appointment Type:FM Open [facility] evaluation + Plan note Future Appointments Appointment Date:08/02/2023 10:20:00 AM Scheduled Provider:Sara Flood Location:[facility] Appointment Type: New [facility] - Adult [facility] Diagnosis Bipolar affective disorder, mixed, in full remission (HCC)- Primary Bipolar I disorder, most recent episode (or current) mixed, in full remission Insomnia due to mental disorder [facility] Pain of toe of left foot- Primary Contusion of left lesser toe(s) w/o damage to nail, init Verruca plantaris Plantar wart Verruca Viral warts, unspecified documented in this encounter [facility]* Diagnosis Myalgia- Primary Unspecified myalgia and myositis Migraine without status migrainosus, not intractable, unspecified migraine type (CMS/HCC) DDD (degenerative disc disease), lumbar Degeneration of lumbar or lumbosacral intervertebral disc Cervical radiculopathy Brachial neuritis or radiculitis nos Lumbar back pain Lumbago Lumbosacral radiculopathy Thoracic or lumbosacral neuritis or radiculitis, unspecified [facility] Narrative No data available for this section [facility] Hospital Discharge instructions No data available for this section [facility] Progress note No data available for this section [facility] Summary Purpose Family History No Family [...] FoundDocuments on File Type Date 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 We elected toproceed with the telephone [...] or behavior since she was last seenin [place]. She reported work is going well she [...] PM EDT Telephone Visit Via Phone Call [facility] [phone] Telephone Visit [facility] 11/20/2020 Nikki Calixto MD Provider Location: [facility] Patient Location Gastroenterology Physician: None Patient Location: Patient's Home Patient: [place] [...] there are inherent diagnostic limitations compared to vwda-[id number] evaluations. We elected toproceed with the telephone [...] section and content) DATE CREATED AUTHOR [facility] DATE CREATED AUTHOR AUTHOR'S ORGANIZ ATION 02/23/2021 [facility] DATE CREATED AUTHOR AUTHOR'S ORGANIZ ATION 06/27/2021 [facility] DATE CREATED AUTHOR AUTHOR'S ORGANIZ ATION 04/24/[address] [employer] [facility] DATE CREATED AUTHOR AUTHOR'S ORGANIZ ATION 04/25/2024 [facility] DATE CREATED AUTHOR AUTHOR'S ORGANIZ ATION 05/20/[address] [facility] DATE CREATED AUTHOR AUTHOR'S ORGANIZ ATION 06/18/2024 [facility] [place] [facility] DATE CREATED AUTHOR AUTHOR'S ORGANIZ ATION 07/20/2024 [facility] DATE CREATED AUTHOR AUTHOR'S ORGANIZ ATION 07/21/2024 [facility] DATE CREATED AUTHOR AUTHOR'S ORGANIZ ATION 07/23/2024 Una [facility] Reason for Visit (unrecogniz ed section and content) Reason Comments Medication Management Reason Onset Date Comments Appointment 12/20/2012 Set up appt with Nyasia/Hernan Reason Comments Follow-up Med mgmt Reason Comments Headache Source Comments (unrecognize d section and content) In the event this informatio n is protected by the Federal Confidentiality of Alcohol and Drug Abuse Patient Records regulations: The Federal rules restrict any use of the information to criminally investigate or prosecute any alcohol or drug abuse patient.[facility] Care Team (unrecognized sect ion and content) 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 [facility]. provides no warranty or guarantee of the accuracy or completeness of information in this document.
[2024-07-24 10:26] VITALS: BP 138/88; PULSE 87; O2SAT 98
== END 2024-07-24 10:30 | disposition home or self-care (01) ==
LOC: VC 09:59
PROVIDERS: PCP Radiology Diagnostic Radiology; Visit Provider Radiology Diagnostic Radiology
DX: I83.813 Varicose veins of bilateral lower extremities with pain (principal)
CPT/HCPCS: 36478

== ENCOUNTER 2024-08-01 09:54 | Outpatient (OUT) | payer BC, SELFPAY ==
--- NOTE | 2024-08-01 09:54 | VEIN_ITS ---
Patient Name: LUIS MANUEL BYERS MR#: [id number] : 1970 Exam Date: 08/01/2024 Ordering Doctor: DR RANDELL DELA CRUZ M.D. RADIOLOGY REPORT PROCEDURE: VC EXT VENOUS LT LIMITED COMPARISON: None. INDICATIONS: I80.02 - Phlebitis and thrombophlebitis of superficial ve... TECHNIQUE: Lower extremity castillo scale and Duplex Doppler evaluation of the deep venous system from the inguinal ligament through the calf veins. FINDINGS: REGION: Left lower extremity. THROMBI: Negative for DVT. Heat induced thrombus visualized 1.2cm from the SFJ. The heat induced thrombus extends from groin to proximal calf. COMPRESSIBILITY: Non-compressible segments corresponding to thrombus FLOW: Areas of no flow corresponding to thrombus OTHER: CONCLUSION: 1. Successful post ablation occlusion of left great saphenous vein. Dictated by: Randell Dela Cruz M.D. on 08/01/2024 at 10:45 Approved by: Randell Dela Cruz M.D. on 08/01/2024 at 10:45
--- NOTE | 2024-08-01 09:54 | VEIN_ITS ---
Patient Name: LUIS MANUEL BYERS MR#: [id number] : 1970 Exam Date: 08/01/2024 Ordering Doctor: DR RANDELL GUTIERREZ M.D. RADIOLOGY REPORT PROCEDURE: [facility] - OFFICE VISIT FOLLOW UP [facility] PROGRESS NOTES: The patient reports improvement in leg symptoms. There has been interval reduction in varicosities. The patient has followed our recommendations to walk 20-30 minutes once or twice per day since the procedure. Physical exam demonstrates decrease in varicosities of the leg. Persistent varicose veins are identified along the legs bilaterally. Review of the ultrasound performed the same day demonstrates occlusive thrombus extending throughout the treated vein(s), see separate report, consistent with a successful ablation. No thrombus extending into or beyond the saphenofemoral junction. The patient expressed a desire to proceed with treatment of remaining incompetent varicosities. The patient was informed that treatment was a process and would require several procedures/sessions. VEIN/[facility] EST TD IMPRESSION: 1. Successful ablation of the left great saphenous vein(s). 2. Persistent varicose veins and lower extremity symptoms. PLAN: 1. Endovenous laser ablation of right small saphenous vein. Nurse notes, history and physical were reviewed and confirmed, see attached forms. The nurse was present throughout the physical exam and consultation Dictated by: Randell Gutierrez M.D. on 08/01/2024 at 10:46 Approved by: Randell Gutierrez M.D. on 08/01/2024 at 10:46
--- NOTE | 2024-08-01 10:06 | P.DS_ITS ---
Discharge Plan Discharge Disposition: Home, Self-Care Outpatient Diagnostics: VC Endovenous Ablation 1VeinRT (Routine) Timeframe: 2 Weeks Facility: [facility] - Location: Vein Center Ordered By: Russ Dela Cruz Follow Up Appointments: 08/06/24. Plan of Treatment: EVLT of right leg SSV. Print Language: Tongan Discharge Date/Time: 08/01/24 10:07
== END 2024-08-01 10:07 | disposition home or self-care (01) ==
PROVIDERS: PCP Radiology Diagnostic Radiology; Visit Provider Radiology Diagnostic Radiology
DX: I80.02 Phlebitis and thrombophlebitis of superficial vessels of left lower extremity (principal)
CPT/HCPCS: 93971; G0463

== ENCOUNTER 2024-08-06 10:13 | Outpatient (OUT) | payer BC, SELFPAY ==
--- NOTE | 2024-08-01 07:42 | VEINCLINIC_ITS ---
Varicose Veins Patient in this day for follow up ultrasound post EVLT of left leg GSV. Russ Brennan MD personally performed the services described in this documentation, as scribed by Rylee Ayala RVT, RDMS in my presence and it is both accurate and complete. Rylee Brennan RVT, RDMS, am scribing for, and in the presence of, Dr. Russ Dela Cruz and in the presence of the patient. thigh: bilateral (symptoms right > left leg), knee: bilateral, calf: bilateral, ankle: bilateral and michael: bilateral aching, burning and cramping 8 2 years Worsened in recent months: Yes standing and heavy lifting analgesics, elevating extremities and compression stockings Reports muscle spasms of leg, bruising and limb pain History of lower extremity trauma: No Superficial thrombophlebitis: No Family history of varicose veins: yes Has patient had previous lower extremity venous surgery: No Patient has previously received the following treatment(s) for lower extremity varicose veins: Reports none Does patient have a history of : yes Does patient intend to have future pregnancies: no Has patient had lower extremity venous scan with relux testing: Yes Results: 4 years ago Support hose used: Yes Problems walking or doing physical activity: Yes How does it affect you: often has to rest and elevate due to pain Do you walk much: Yes Do you stand much: Yes Review of Systems ROS Narrative Russ Brennan MD personally performed the services described in this documentation, as scribed by Rylee Ayala RVT, RDMS in my presence and it is both accurate and complete. Rylee Brennan RVT, RDMS, am scribing for, and in the presence of, Dr. Russ Dela Cruz and in the presence of the patient. Status of ROS 10 or more systems reviewed and unremark able except as noted in history and below Integumentary/Breast Reports: itching and changes in skin color Neurological Reports: weakness in extremities [facility] Medical History (Updated 07/24/24 @ 10:30 by Bijan Juarez) Superficial thrombophlebitis of left leg ?I80.02 - Phlebitis and thrombophlebitis of superficial vessels of left lower extremity (ICD-10) Phlebitis and thrombophlebitis of superficial vessels of right lower extremity ?I80.01 - Phlebitis and thrombophlebitis of superficial vessels of right lower extremity (ICD-10) Bone spur ?M77.9 - Enthesopathy, unspecified (ICD-10) Disruption of anterior cruciate ligament of left knee ?S83.512A - Sprain of anterior cruciate ligament of left knee, initial encounter (ICD-10) Varicose veins of bilateral lower extremities with pain ?I83.813 - Varicose veins of bilateral lower extremities with pain (ICD-10) Hypertension ?I10 - Essential (primary) hypertension (ICD-10) Migraine ?G43.909 - Migraine, unspecified, not intractable, without status migrainosus (ICD-10) Surgical History (Updated 07/24/24 @ 10:29 by Bijan Juarez) Status post laser ablation of incompetent vein ?Z98.890 - Other specified postprocedural states (ICD-10) Status post laser ablation of incompetent vein ?Z98.890 - Other specified postprocedural states (ICD-10) H/O sinus surgery ?Z98.890 - Other specified postprocedural states (ICD-10) S/P reconstruction of ACL of left knee using bone-patellar tendon-bone autograft ?Z98.890 - Other specified postprocedural states (ICD-10) Family History (Updated 04/29/24 @ 15:27 by Bijan Juarez) Other Family history of cancer Family history of hypertension Varicose veins of bilateral lower extremities with pain Social History (Updated 04/29/24 @ 15:27 by Bijan Juarez) Within the past year, how often did you have a drink containing alcohol: 2-4 times a month Smoking status: Never smoker Non-prescribed substance use: cannabis (any form) Meds Home Medications and Allergies Home Medications ?Medication ?Instructions ?Recorded ?Confirmed ?Type atogepant 60 mg tablet (Qulipta) 60 mg PO DAILY 04/29/24 04/29/24 History baclofen 15 mg tablet 15 mg PO DAILY 04/29/24 04/29/24 History lamotrigine 200 mg tablet 100 mg PO BID 04/29/24 04/29/24 History (Lamictal) losartan 25 mg tablet (Cozaar) 25 mg PO DAILY 04/29/24 04/29/24 History oxcarbazepine 300 mg tablet 300 mg PO BID 04/29/24 04/29/24 History (Trileptal) semaglutide 1 mg/dose (4 mg/3 mL) 0.25 mg subcut QWEEK 04/29/24 04/29/24 History subcutaneous pen injector (Ozempic) ubrogepant 50 mg tablet (Ubrelvy) mg 04/29/24 History Allergies Allergy/AdvReac Type Severity Reaction Status Date / Time acetaminophen (From Vicodin) Allergy Intermediate Rash Verified 04/29/24 16:02 hydrocodone (From Vicodin) Allergy Intermediate Rash Verified 04/29/24 16:02 Penicillins Allergy Intermediate Rash Verified 04/29/24 16:02 Exam Narrative Exam Narrative: Russ Brennan MD personally performed the services described in this documentation, as scribed by Rylee Ayala RVT, RDMS in my presence and it is both accurate and complete. Rylee Brennan RVT, RDMS, am scribing for, and in the presence of, Dr. Russ Dela Cruz and in the presence of the patient. Constitutional Documenting provider has reviewed patient's vital signs: yes Common normals: oriented x3 Cardio Peripheral pulses: posterior tibial pulses present and dorsalis pedis pulses present Extremity Common normals: normal capillary refill General: calf tenderness and edema Right lower extremity: lower leg Right lower leg: inspection and palpation Left lower extremity: lower leg Left lower leg: inspection and palpation Neuro Common normals: oriented x3 Results Imaging Venous US: Radiologist's impression: The ultrasound demonstrates Heat induced thrombus visualized 1.2cm from the SFJ. The heat induced thrombus extends from groin to proximal calf. Assessment and Plan Assessment and Plan (1) Superficial thrombophlebitis of left leg: Plan Patient in today for follow up ultrasound of lower extremity following treatment of EVLT of left leg GSV completed on 07/24/24. Russ Brennan MD personally performed the services described in this documentation, as scribed by Rylee Ayala RVT, RDMS in my presence and it is both accurate and complete. Rylee Brennan RVT, RDMS, am scribing for, and in the presence of, Dr. Russ Dela Cruz and in the presence of the patient.
--- NOTE | 2024-08-01 07:48 | W.VEIN ---
Discharge Plan Discharge Disposition: Home, Self-Care Outpatient Diagnostics: VC Endovenous Ablation 1VeinRT (Routine) Timeframe: 2 Weeks Facility: [facility] - Location: Vein Center Ordered By: Russ Dela Cruz Follow Up Appointments: 08/06/24 Plan of Treatment: EVLT of right leg SSV. Print Language: Maltese
--- NOTE | 2024-08-06 10:29 | VEIN_ITS ---
[address] [address] Patient Name: LUIS MANUEL BYERS MRN: [id number] date: 1970 Sex: F Assigned Patient Location: Current Patient Location: Accession/Order Number: [id number] Exam Date: 08/06/2024 10:35 Report Date: 08/06/2024 11:55 At the request of: RANDELL GUTIERREZ Procedure: VC Endovenous Ablation 1VeinRT EXAMINATION: VC Endovenous Ablation 1VeinRT HISTORY: I83.813 - Varicose veins of bilateral lower extremities w... COMPARISON: No relevant comparison available. TECHNIQUE: The risks and benefits of the procedure had been previously discussed, and were rediscussed at length. Informed written consent was obtained. Binta Figueroa and Bijan Juarez assisted. Time out procedure was performed. The right lower extremity was prepared and draped in the usual sterile fashion to allow knee flexion in the sterile field. Duplex ultrasound probe was draped in a sterile cover, sterile transmission gel was used. Venous mapping was performed with the areas of dilation and large tributaries marked. The total length was 26 cm from the entry lower calf to 3 cm below the saphenopopliteal junction. The diameter of the normal saphenous vein ranged from 4-6 mm. A 30 gauge needle and 1% buffered lidocaine was used to anesthetize the entry site. A 4 mm incision was made with a scalpel and the saphenous vein was entered percutaneously under direct ultrasound guidance with a micropuncture set, a single stick was successful in gaining access. A micro-guide wire was inserted and the needle removed. A micro-set including a dilator was inserted over the microwire and the needle and dilator were removed. A 0.018 guide wire was inserted through the micro-set and threaded through the saphenous vein to the saphenofemoral junction. The dilator was removed and an introducer sheath was inserted over the wire until the end of the sheath entered the saphenofemoral junction. The dilator and wire were removed and the 600 micron fiber was introduced and placed and positioned so that it extended beyond the sheath and was 3 cm peripheral to the saphenofemoral femoral junction. Final position of the fiber was determined by ultrasound guidance and duplex imaging. Tumescent anesthetic was delivered by ultrasound guidance. 100 cc of fluid was delivered along the entire course of the saphenous vein. The solution consisted of 1000 cc of normal saline with 40 mL of 1% lidocaine and 20 mL of sodium bicarbonate. A final positioning check was made. The energy source was turned on by means of the foot pedal and the fiber and sheath were withdrawn. The total number of Joules delivered was 1246. The laser was active for 156seconds under continuous pulse, average laser use of 8 J. Laser start time 1101 AM . Laser stop time 1104AM . A duplex ultrasound revealed compressibility and flow at the saphenofemoral junction immediately after the procedure. Hemostasis at the access site was achieved. The skin incision of the saphenous vein was closed with a 4 x 4. A compression stocking was applied. Postop instructions were given. A follow up appointment was recommended and scheduled. The patient tolerated the procedure well and was discharged in good condition . VEIN/VC Endovenous Ablation 1VeinRT IMPRESSION: Technically successful endovenous laser ablation of the right small saphenous vein Electronically authenticated by: ALONDRA CLEMENT Date: 08/06/2024 11:55
[2024-08-06] MEDS: 0.9 % SODIUM CHLORIDE 500 ML, LIDOCAINE HCL 20 ML, SODIUM BICARBONATE 10 MEQ INJ (10:30)
[2024-08-06] MEDS: LIDOCAINE HCL 1% 100 MG/10 ML MDV INJ (10:30)
--- NOTE | 2024-08-06 10:31 | VEINCLINIC_ITS ---
Vital Signs 08/06/24 10:38 BP 128/74 BP Location Left Brachial BP Position Sitting BP Cuff Size Adult BP Source Manual Cuff Respiration 16 Pulse 74 Pulse Source Monitor Pulse Oximetry (%) 99 Oxygen Delivery Method Room Air Comment The patient's blood pressure is elevated. Varicose Veins Patient in this day for EVLT of right SSV Eugene Brennan MD personally performed the services described in this documentation, as scribed by Bijan Juarez RN in my presence and it is both accurate and complete. IBijan RN, am scribing for, and in the presence of, Dr. Eugene Aj and in the presence of the patient. thigh: bilateral (symptoms right > left leg), knee: bilateral, calf: bilateral, ankle: bilateral and michael: bilateral aching, burning and cramping 8 2 years Worsened in recent months: Yes standing and heavy lifting analgesics, elevating extremities and compression stockings Reports muscle spasms of leg, bruising and limb pain History of lower extremity trauma: No Superficial thrombophlebitis: No Family history of varicose veins: yes Has patient had previous lower extremity venous surgery: No Patient has previously received the following treatment(s) for lower extremity varicose veins: Reports none Does patient have a history of : yes Does patient intend to have future pregnancies: no Has patient had lower extremity venous scan with relux testing: Yes Results: 4 years ago Support hose used: Yes Problems walking or doing physical activity: Yes How does it affect you: often has to rest and elevate due to pain Do you walk much: Yes Do you stand much: Yes Review of Systems ROS Narrative Eugene Brennan MD personally performed the services described in this documentation, as scribed by Bijan Juarez RN in my presence and it is both accurate and complete. Bijan Brennan RN, am scribing for, and in the presence of, Dr. Eugene Aj and in the presence of the patient. Status of ROS 10 or more systems reviewed and unremark able except as noted in history and below Integumentary/Breast Reports: itching and changes in skin color Neurological Reports: weakness in extremities [facility] Medical History (Updated 07/24/24 @ 10:30 by Bijan Juarez) Superficial thrombophlebitis of left leg ?I80.02 - Phlebitis and thrombophlebitis of superficial vessels of left lower extremity (ICD-10) Phlebitis and thrombophlebitis of superficial vessels of right lower extremity ?I80.01 - Phlebitis and thrombophlebitis of superficial vessels of right lower extremity (ICD-10) Bone spur ?M77.9 - Enthesopathy, unspecified (ICD-10) Disruption of anterior cruciate ligament of left knee ?S83.512A - Sprain of anterior cruciate ligament of left knee, initial encounter (ICD-10) Varicose veins of bilateral lower extremities with pain ?I83.813 - Varicose veins of bilateral lower extremities with pain (ICD-10) Hypertension ?I10 - Essential (primary) hypertension (ICD-10) Migraine ?G43.909 - Migraine, unspecified, not intractable, without status migrainosus (ICD-10) Surgical History (Updated 08/06/24 @ 10:52 by Bijan Juarez) Status post laser ablation of incompetent vein ?Z98.890 - Other specified postprocedural states (ICD-10) Status post laser ablation of incompetent vein ?Z98.890 - Other specified postprocedural states (ICD-10) Status post laser ablation of incompetent vein ?Z98.890 - Other specified postprocedural states (ICD-10) H/O sinus surgery ?Z98.890 - Other specified postprocedural states (ICD-10) S/P reconstruction of ACL of left knee using bone-patellar tendon-bone autograft ?Z98.890 - Other specified postprocedural states (ICD-10) Family History (Updated 04/29/24 @ 15:27 by Bijan Juarez) Other Family history of cancer Family history of hypertension Varicose veins of bilateral lower extremities with pain Social History (Updated 04/29/24 @ 15:27 by Bijan Juarez) Within the past year, how often did you have a drink containing alcohol: 2-4 times a month Smoking status: Never smoker Non-prescribed substance use: cannabis (any form) Meds Home Medications and Allergies Home Medications ?Medication ?Instructions ?Recorded ?Confirmed ?Type atogepant 60 mg tablet (Qulipta) 60 mg PO DAILY 04/29/24 04/29/24 History baclofen 15 mg tablet 15 mg PO DAILY 04/29/24 04/29/24 History lamotrigine 200 mg tablet 100 mg PO BID 04/29/24 04/29/24 History (Lamictal) losartan 25 mg tablet (Cozaar) 25 mg PO DAILY 04/29/24 04/29/24 History oxcarbazepine 300 mg tablet 300 mg PO BID 04/29/24 04/29/24 History (Trileptal) semaglutide 1 mg/dose (4 mg/3 mL) 0.25 mg subcut QWEEK 04/29/24 04/29/24 History subcutaneous pen injector (Ozempic) ubrogepant 50 mg tablet (Ubrelvy) mg 04/29/24 History Allergies Allergy/AdvReac Type Severity Reaction Status Date / Time acetaminophen (From Vicodin) Allergy Intermediate Rash Verified 04/29/24 16:02 hydrocodone (From Vicodin) Allergy Intermediate Rash Verified 04/29/24 16:02 Penicillins Allergy Intermediate Rash Verified 04/29/24 16:02 Exam Narrative Exam Narrative: Eugene Brennan MD personally performed the services described in this documentation, as scribed by Bijan Juarez RN in my presence and it is both accurate and complete. IBijan RN, am scribing for, and in the presence of, Dr. Eugene Aj and in the presence of the patient. Constitutional Documenting provider has reviewed patient's vital signs: yes Common normals: oriented x3 Cardio Peripheral pulses: posterior tibial pulses present and dorsalis pedis pulses present Extremity Common normals: normal capillary refill General: calf tenderness and edema Right lower extremity: lower leg Right lower leg: inspection and palpation Left lower extremity: lower leg Left lower leg: inspection and palpation Neuro Common normals: oriented x3 Assessment and Plan Assessment and Plan (1) Varicose veins of bilateral lower extremities with pain: Plan f/u evaluation with physician along with right leg limited u/s Eugene Brennan MD personally performed the services described in this documen tation, as scribed by Bijan Juarez RN in my presence and it is both accurate and complete. Bijan Brennan RN, am scribing for, and in the presence of, Dr. Eugene Aj and in the presence of the patient. Procedures Procedure Instructions Procedures Plan of care: Risks and benefits of the procedure were discussed at length and informed written consent was obtained.? Time-out completed for verification of correct patient, procedure and site.? Staff present during time-out: Bijan Juarez RN,? Eugene Aj MD, [facility]. Time Out Time__1051 Patient prepped and procedure performed in usual sterile fashion. Risk of injury related to use of Diode laser and/or laser devices?__CR___ ? Serial number of laser used :? [id number] Control panel self test performed, electrical cords in good condition, floor is dry, basin of water available, fire extinguisher in close proximity_CR__ Polycarbonate goggles available and Laser warning signs outside of doors___CR__ Eye protection provided to patient and staff in room_CR___ Use of laser retardant drapes and dull blackened instruments as directed__CR___ Use of nonflammable prep solutions and use of saline soaked sponges to protect tissues as indicated _CR___ Length ___26 cm Laser operated by ___Dr. Aj Physician verbal confirmation laser locked in place__CR__ Laser start time (date and time) _08/06/2024@_1101 Laser stop time(date and time) __08/06/2024@__1104 Jimenez _8.0___ Average laser use __1246 Joules Average laser use___156 seconds Pulse continuous ___CR_? Pulse intermittent ___ Amount of Tumescent used _100cc Evaluated patient for signs and symptoms of electrical injury __CR___ ? Skin clear at insertion site __CR___ Patient tolerated procedure well.? Right leg Coban dressing applied to access site.? Applied Right thigh high leg compression stocking. Will return on 08/15/2024 for Right leg limited venous ultrasound and exam. IEugene MD personally performed the services described in this documentation, as scribed by Bijan Juarez RN in my presence and it is both accurate and complete. I, Bijan Juarez RN, am scribing for, and in the presence of, Dr. Eugene Aj and in the presence of the patient.
--- NOTE | 2024-08-06 10:32 | W.VEIN ---
Discharge Plan Discharge Disposition: Home, Self-Care Outpatient Diagnostics: [facility] Facility EST LMTD (Routine) Timeframe: 2 Weeks Facility: [facility] - Location: Vein Center Ordered By: Eugene Aj VC EXT Venous RT LMTD (Routine) Timeframe: 2 Weeks Facility: [facility] - Location: Vein Center Ordered By: Eugene Aj Follow Up Appointments: 08/06/24 Plan of Treatment: EVLT of right leg SSV. Patient Instructions: Endovenous Ablation (DC) Print Language: [place] Discharge Date/Time: 08/06/24 10:59
[2024-08-06 10:38] VITALS: BP 128/74; PULSE 74; O2SAT 99
== END 2024-08-06 10:59 | disposition home or self-care (01) ==
LOC: VC 10:29
PROVIDERS: PCP Radiology Diagnostic Radiology; Visit Provider Radiology Diagnostic Radiology
DX: I83.813 Varicose veins of bilateral lower extremities with pain (principal)
CPT/HCPCS: 36478

== ENCOUNTER 2024-08-19 15:20 | Outpatient (OUT) | payer BC, SELFPAY ==
--- NOTE | 2024-08-19 10:14 | V.VEINS.HP ---
Vital Signs 08/19/24 10:15 Height 5 ft 7 in Weight 82 kg BMI 28.3 Varicose Veins Patient in today for follow up ultrasound of right lower extremity following EVLT of right SSV completed on 08/06/24. Eugene Brennan MD personally performed the services described in this documentation, as scribed by Holley Hernandez RDMS in my presence and it is both accurate and complete. Holley Brennan RDMS am scribing for, and in the presence of, Dr. Eugene Aj and in the presence of the patient. thigh: bilateral (symptoms right > left leg), knee: bilateral, calf: bilateral, ankle: bilateral and michael: bilateral aching, burning and cramping 8 2 years Worsened in recent months: Yes standing and heavy lifting analgesics, elevating extremities and compression stockings Reports muscle spasms of leg, bruising and limb pain History of lower extremity trauma: No Superficial thrombophlebitis: No Family history of varicose veins: yes Has patient had previous lower extremity venous surgery: No Patient has previously received the following treatment(s) for lower extremity varicose veins: Reports none Does patient have a history of : yes Does patient intend to have future pregnancies: no Has patient had lower extremity venous scan with relux testing: Yes Results: 4 years ago Support hose used: Yes Problems walking or doing physical activity: Yes How does it affect you: often has to rest and elevate due to pain Do you walk much: Yes Do you stand much: Yes Review of Systems ROS Narrative Eugene Brennan MD personally performed the services described in this documentation, as scribed by Holley Hernandez RDMS in my presence and it is both accurate and complete. Holley Brennan RDMS, am scribing for, and in the presence of, Dr. Eugene Aj and in the presence of the patient. Status of ROS 10 or more systems reviewed and unremarkable except as noted in history and below Integumentary/Breast Reports: itching and changes in skin color Neurological Reports: weakness in extremities [facility] Medical History (Updated 07/24/24 @ 10:30 by Bijan Juarez) Superficial thrombophlebitis of left leg ?I80.02 - Phlebitis and thrombophlebitis of superficial vessels of left lower extremity (ICD-10) Phlebitis and thrombophlebitis of superficial vessels of right lower extremity ?I80.01 - Phlebitis and thrombophlebitis of superficial vessels of right lower extremity (ICD-10) Bone spur ?M77.9 - Enthesopathy, unspecified (ICD-10) Disruption of anterior cruciate ligament of left knee ?S83.512A - Sprain of anterior cruciate ligament of left knee, initial encounter (ICD-10) Varicose veins of bilateral lower extremities with pain ?I83.813 - Varicose veins of bilateral lower extremities with pain (ICD-10) Hypertension ?I10 - Essential (primary) hypertension (ICD-10) Migraine ?G43.909 - Migraine, unspecified, not intractable, without status migrainosus (ICD-10) Surgical History (Updated 08/06/24 @ 10:52 by Bijan Juarez) Status post laser ablation of incompetent vein ?Z98.890 - Other specified postprocedural states (ICD-10) Status post laser ablation of incompetent vein ?Z98.890 - Other specified postprocedural states (ICD-10) Status post laser ablation of incompetent vein ?Z98.890 - Other specified postprocedural states (ICD-10) H/O sinus surgery ?Z98.890 - Other specified postprocedural states (ICD-10) S/P reconstruction of ACL of left knee using bone-patellar tendon-bone autograft ?Z98.890 - Other specified postprocedural states (ICD-10) Family History (Updated 04/29/24 @ 15:27 by Bijan Juarez) Other Family history of cancer Family history of hypertension Varicose veins of bilateral lower extremities with pain Social History (Updated 04/29/24 @ 15:27 by Bijan Juarez) Within the past year, how often did you have a drink containing alcohol: 2-4 times a month Smoking status: Never smoker Non-prescribed substance use: cannabis (any form) Meds Home Medications and Allergies Home Medications ?Medication ?Instructions ?Recorded ?Confirmed ?Type atogepant 60 mg tablet (Qulipta) 60 mg PO DAILY 04/29/24 04/29/24 History baclofen 15 mg tablet 15 mg PO DAILY 04/29/24 04/29/24 History lamotrigine 200 mg tablet 100 mg PO BID 04/29/24 04/29/24 History (Lamictal) losartan 25 mg tablet (Cozaar) 25 mg PO DAILY 04/29/24 04/29/24 History oxcarbazepine 300 mg tablet 300 mg PO BID 04/29/24 04/29/24 History (Trileptal) semaglutide 1 mg/dose (4 mg/3 mL) 0.25 mg subcut QWEEK 04/29/24 04/29/24 History subcutaneous pen injector (Ozempic) ubrogepant 50 mg tablet (Ubrelvy) mg 04/29/24 History Allergies Allergy/AdvReac Type Severity Reaction Status Date / Time acetaminophen (From Vicodin) Allergy Intermediate Rash Verified 04/29/24 16:02 hydrocodone (From Vicodin) Allergy Intermediate Rash Verified 04/29/24 16:02 Penicillins Allergy Intermediate Rash Verified 04/29/24 16:02 Exam Narrative Exam Narrative: Eugene Brennan MD personally performed the services described in this documentation, as scribed by Holley Hernandez RDMS in my presence and it is both accurate and complete. Holley Brennan RDMS, am scribing for, and in the presence of, Dr. Eugene Aj and in the presence of the patient. Constitutional Documenting provider has reviewed patient's vital signs: yes Common normals: oriented x3 Cardio Peripheral pulses: posterior tibial pulses present and dorsalis pedis pulses present Extremity Common normals: normal capillary refill General: calf tenderness and edema Right lower extremity: lower leg Right lower leg: inspection and palpation Left lower extremity: lower leg Left lower leg: inspection and palpation Neuro Common normals: oriented x3 Results Imaging Venous US: Radiologist's impression: Heat induced thrombus in right SSV 2.5 cm from SPJ to distal lower leg. Eugene Brennan MD personally performed the services described in this documentation, as scribed by Holley Hernandez RDMS in my presence and it is both accurate and complete. Holley Brennan RDMS, am scribing for, and in the presence of, Dr. Eugene Aj and in the presence of the patient. Assessment and Plan Assessment and Plan (1) Phlebitis and thrombophlebitis of superficial vessels of right lower extremity: Plan Plan is for patient to return for EVLT of left SSV. She will call and schedule when she is ready. Eugene Brennan MD personally performed the services described in this documentation, as scribed by Holley Hernandez RDMS in my presence and it is both accurate and complete. I, Holley Hernandez RDMS, am scribing for, and in the presence of, Dr. Eugene Aj and in the presence of the patient.
[2024-08-19 10:15] VITALS: BMI 28.3
--- NOTE | 2024-08-19 14:49 | W.VEIN ---
Discharge Plan Discharge Disposition: Home, Self-Care Outpatient Diagnostics: [facility] Endovenous Ablation 1VeinLT (Routine) Timeframe: 3 Weeks Facility: [facility] - Location: Vein Center Ordered By: Eugene Aj Plan of Treatment: EVLT of left SSV Print Language: Luxembourgish Discharge Date/Time: 08/19/24 15:53
--- NOTE | 2024-08-19 15:21 | VEIN_ITS ---
Patient Name: LUIS MANUEL BYERS MR#: [id number] : 1970 Exam Date: 08/19/2024 Ordering Doctor: DR EUGENE AJ M.D. RADIOLOGY REPORT PROCEDURE: FACILITY EST LMTD VEIN CENTER - OFFICE VISIT FOLLOW UP COMPARISON: [facility] EST LMTD, 08/01/2024. [facility] EST LMTD, 07/17/2024. PROGRESS NOTES: The patient reports no significant problems following intravenous laser ablation of the right small saphenous veins. The patient did wear her compression stockings. The patient did tried exercise. The patient did require oral analgesics. Physical exam demonstrates the incision to be sealed. No erythema or warmth. No ulceration. The small saphenous vein cannot be palpated Review of the ultrasound performed the same day demonstrates occlusive thrombus extending throughout the treated right small saphenous vein with heat induced thrombus 2.5 cm from the saphenous popliteal junction period no deep vein thrombus. At this time the patient wanted to pause her treatments due to her new insurance deductible. She informed versus she would contact our office when she wanted to continue her treatments. VEIN/[facility] EST LMTD IMPRESSION: 1. Successful ablation of the right small saphenous vein. 2. Persistent incompetent left small saphenous vein. PLAN: Intravenous laser ablation left small saphenous vein when the patient would like to have the procedure Nurse notes, history and physical were reviewed and confirmed, see attached forms. The nurse was present throughout the physical exam and consultation Dictated by: Eugene Aj MD on 08/19/2024 at 15:57 Approved by: Eugene Aj MD on 08/19/2024 at 16:00
--- NOTE | 2024-08-19 15:21 | VEIN_ITS ---
Patient Name: LUIS MANUEL BYERS MR#: [id number] : 1970 Exam Date: 08/19/2024 Ordering Doctor: DR EUGENE AJ M.D. RADIOLOGY REPORT PROCEDURE: VC EXT VENOUS RT LMTD COMPARISON: [facility] EXT VENOUS RT LMTD, 07/17/2024. INDICATIONS: I80.01 - Phlebitis and thrombophlebitis of superficial veins right leg TECHNIQUE: Lower extremity castillo scale and Duplex Doppler evaluation of the deep venous system from the inguinal ligament through the calf veins. FINDINGS: REGION: Right lower extremity. THROMBI: Negative for DVT. Heat induced thrombus in right SSV 2.5 cm from SPJ and extends to distal lower leg. COMPRESSIBILITY: Non-compressible segments corresponding to thrombus FLOW: Areas of no flow corresponding to thrombus CONCLUSION: Post ablation occlusion of the right small saphenous vein with heat induced thrombus 2.5 cm from the saphenopopliteal junction. Dictated by: Eugene Aj MD on 08/19/2024 at 15:37 Approved by: Eugene Aj MD on 08/19/2024 at 15:38
== END 2024-08-19 15:53 | disposition home or self-care (01) ==
LOC: VC 15:21
PROVIDERS: PCP Radiology Diagnostic Radiology; Visit Provider Radiology Diagnostic Radiology
DX: I80.01 Phlebitis and thrombophlebitis of superficial vessels of right lower extremity (principal)
CPT/HCPCS: 93971; G0463